=== PATIENT | female | born 1940 | race Caucasian/White ===

== ENCOUNTER 2023-07-13 13:16 | Outpatient (OUT) | payer MEDICARE, SELFPAY ==
--- NOTE | 2023-07-13 13:19 | VEIN_ITS ---
Patient: DARWIN ESPINO Exam Date: 07/13/2023 : 1940 Gender:F Ordering : DR MARQUISE FRANCISCO M.D. Admission #: [id number] Family : Order #: [id number] CLICK HERE TO VIEW EXAM RADIOLOGY REPORT PROCEDURE: VC EXT VENOUS REFLUX SLICK LMTD COMPARISON: None. INDICATIONS: I83.813 Painful varicose veins of bilat lower extremities TECHNIQUE: Duplex imaging of the lower extremity to assess the deep and superficial venous system for the presence of deep or superficial venous incompetence and to document the location and severity of disease. The study includes evaluation of the great saphenous vein (GSV), anterior accessory saphenous vein (AASV) and small saphenous vein (SSV). Patient scanned in reverse Trendelenburg and standing. FINDINGS: RIGHT LOWER EXTREMITY: Saphenofemoral Junction Reflux: Yes 7.7mm 2.2 sec GSV: Diam (mm) Reflux/ Time (sec) Proximal Thigh 3.8 Yes 2.0 Mid Thigh N/A Distal Thigh N/A Prox Calf N/A Mid Calf N/A Saphenopopliteal Junction Reflux: 3.2mm No SSV: Proximal Calf 2.0 No Mid Calf 2.4 No AASV: Proximal Thigh 4.1 Yes 1.4 Mid Thigh 3.0 Yes 1.3 Distal Thigh Thrombi: No acute or chronic thrombus visualized Compressibility: Normal Flow: Continuous flow visualized throughout veins Preforator: Dist/med calf 3.3mm with 0s reflux. Tech Note: GSV was previously ablated. Patent varicose vein dist/med calf 4.1mm with 1.0s reflux. Patent varicose vein mid/ant calf 5.1mm with 2.7s reflux. Patent varicose vein mid/lat calf 4.2mm with 1.8s reflux. Patent varicose vein mid/med thigh off of GSV extension 3.6mm with 0.7s reflux. LEFT LOWER EXTREMITY: Saphenofemoral Junction Reflux: Yes 5.6 mm 1.6 sec GSV: Diam (mm) Reflux/Time (sec) Proximal Thigh 5.6 Yes 2.7 Mid Thigh 3.6 No Distal Thigh 4.4 Yes 0.9 Prox Calf 6.8 No Mid Calf 3.9 No Saphenopopliteal Junction Relux: 2.2 mm No SSV: Proximal Calf 2.2 No Mid Calf 1.9 AASV: Proximal Thigh 2.3 No Mid Thigh 2.9 No Distal Thigh Thrombi: No acute or chronic thrombus visualized Compressibility: Normal Flow: Continuous flow visualized throughout veins Feeder Switchboard Operator: Dist/med calf 2.4mm with 0s reflux. Mid/med calf 3.1mm with 0s reflux. Patent varicose vein mid/med calf 4.3mm with 0.9s reflux. Tech Note: Incompetent GSV. Patent varicose vein dist/med calf 3.9mm with 1.0s reflux. Patent varicose vein ant knee 3.6mm with 0s reflux. CONCLUSION: 1. Mild proximal bilateral great saphenous vein venous insufficiency without significant dilatation 2. Moderate bilateral incompetent varicose veins Dictated by: Marquise Francisco MD on 07/13/2023 at 14:35 Approved by: Marquise Francisco MD on 07/13/2023 at 14:37
--- NOTE | 2023-07-13 13:19 | VEIN_ITS ---
Patient: DARWIN ESPINO Exam Date: 07/13/2023 : 1940 Gender:F Ordering : DR MARQUISE MADDEN M.D. Admission #: [id number] Family : Order #: [id number] CLICK HERE TO VIEW EXAM RADIOLOGY REPORT PROCEDURE: VC FACILITY EST COMPREHENSIVE VEIN CENTER - OFFICE VISIT INITIAL COMPARISON: None. PROGRESS NOTES: 82-year-old female who presents with a long history of lower extremity pain swelling and varicose veins. The patient complains discolored veins, leg swelling, edema and 2 separate episodes of hemorrhage from a varicose vein in the left lower leg. The patient had prior treatments with Dr. Mills and or walk having intravenous laser ablation as well as injection sclerotherapy. The patient's symptoms are significantly exacerbated by prolonged sitting and standing and 2 episodes of bleeding have changed her daily activities she no longer wants to work in the yard for fear of an additional episode of acute hemorrhage. The patient's symptoms are partially relieved by rest and leg elevation. The patient denies any signs and symptoms to suggest arterial ischemia. The patient describes a family history significant for heart disease and varicose veins in her mother. . The patient quit smoking 30 years ago. No illicit drug use. The patient does not drink alcohol. Past medical history significant for hypertension and atrial fibrillation. The patient remains on anticoagulation but is unclear whether she continues to be in atrial fibrillation or sinus rhythm. This was discussed with the patient and daughter. No history of deep venous thrombus or pulmonary embolus. See separate history and physical for medication list. The patient has worn compression stockings for approximately 5 years. Nursing notes were reviewed After history and physical exam I discussed at length the pathophysiology of venous hypertension and possible treatments, therapies and strategies available. We discussed at length the importance of elevating the lower extremities above the level of the heart, increased physical activity and compression stocking use. We discussed alternative treatments including conservative therapy with bilateral thigh-high compression stockings. Surgical interventions with ligation, stripping and phlebectomy. Discussed intravenous laser ablation, micro foam chemical ablation and injection sclerotherapy at length. Risks benefits and alternatives were discussed and patient questions were answered. Ultrasound venous reflux study performed the same day was discussed at length with the patient. The report demonstrates mild proximal bilateral great saphenous vein venous insufficiency. Mild right anterior accessory saphenous vein venous insufficiency without dilatation. Moderate bilateral incompetent varicose veins PHYSICAL EXAM: The right leg demonstrates moderate to severe diffuse varicose veins. Scattered reticular and spider veins. Moderate hemosiderin staining. Moderate subcutaneous edema of the ankle. No active ulceration. The left leg demonstrates moderate diffuse varicose veins. Scattered reticular and spider veins. Moderate hemosiderin staining. Moderate subcutaneous edema of the ankle. There is a 2 cm pre hemorrhagic vein along the anterior mid left lockwood with surrounding bruising likely related to recent hemorrhage. Both thighs, legs and feet were symmetrically warm to the touch. Good posterior tibial and dorsalis pedis pulses were present bilaterally. VEIN/VC Facility EST Comprehensive IMPRESSION: 1. Mild bilateral great and right anterior accessory saphenous vein venous insufficiency 2. Moderate to severe right and moderate left lower extremity varicose veins with left leg 2 cm hemorrhagic vein 3. Moderate bilateral ankle subcutaneous edema 4. No definite flow significant arterial disease 5. CEAP: C4a, Ep, As, Pr PLAN: 1. Micro foam chemical ablation bilateral incompetent varicose veins and left hemorrhagic veins 2. Long-term use of bilateral knee and thigh-high 20 to 30 mm compression stockings 3. Elevated legs and increased physical activity for symptomatic relief Nurse notes, history and physical were reviewed and confirmed, see attached forms. The nurse was present throughout the physical exam and consultation Dictated by: Marquise Madden MD on 07/13/2023 at 15:02 Approved by: Marquise Madden MD on 07/13/2023 at 15:09
== END 2023-07-13 13:17 | disposition home or self-care (01) ==
LOC: VC 13:17
PROVIDERS: PCP Family Medicine; Visit Provider Radiology Diagnostic Radiology
DX: I83.813 Varicose veins of bilateral lower extremities with pain (principal)
CPT/HCPCS: 93970; G0463

== ENCOUNTER 2023-09-15 07:57 | Outpatient (OUT) | payer MEDICARE, SELFPAY ==
--- NOTE | 2023-09-15 07:59 | VEIN_ITS ---
[address] [address] Patient Name: DARWIN EPSINO MRN: [id number] date: 1940 Sex: F Assigned Patient Location: Current Patient Location: Accession/Order Number: [id number] Exam Date: 09/15/2023 07:59 Report Date: 09/15/2023 09:42 At the request of: MC MADDEN Procedure: VC INJ Foam Sclerosant WUS CHASSIS WIRER PROCEDURE: VC INJ Foam Sclerosant WUS CHASSIS WIRER COMPARISON: None. HISTORY: I83.813 Painful varicose veins of bilat lower extremities Pre-operative Diagnosis: CEAP class C4a venous insufficiency with pain, tenderness, edema and incompetent left great saphenous and varicose vein(s), chronic venous insufficiency left leg secondary to venous incompetence Post-operative Diagnosis: CEAP class C4a venous insufficiency with pain, tenderness, edema and incompetent left great saphenous and varicose vein(s), chronic venous insufficiency left leg secondary to venous incompetence Procedure Performed: 1. Ultrasound-guided microfoam chemical ablation with Varithenaregistered 2. Intraoperative ultrasound guidance Anesthesia: None Indications for Procedure: 82-year-old female who presents with a long history: Extremity pain swelling with varicose veins. The patient failed conservative medical therapy including medical compression stockings, exercise and analgesics. Prior procedures include . Multiple incompetent varicosities of the left leg. Duplex scan showed reflux and enlarged diameters up to 8 mm. The patient underwent informed consent including management options where the complications of infection, bleeding, pain, and skin injury were discussed. Particular attention was spent discussing thrombus extension and deep vein thrombosis as well as the possibility of pulmonary embolus and treatment with oral or injectable blood thinners. Procedure: The patient walked to the procedure room. All applicable staff donned appropriate apparel. A procedure timeout was performed to confirm correct patient, correct extremity, correct procedure, and correct room set-up including presence of all applicable supplies, devices, and drugs. A duplex ultrasound, performed by myself confirmed the location and incompetence of branch saphenous varicosities and their course was marked on the skin together with the dilated tributaries. The extent of treatment of the vein and the associated varicosities was determined through ultrasound mapping. The skin was prepped and then punctured with a butterfly needle and advanced under ultrasound guidance. The Varithenaregistered canister was activated and the canister was primed and purged as required in the instructions for use. Varithenaregistered was drawn into a sterile syringe. The following injections were made: 7 cc injected into the distal left great saphenous vein which measures up to 8 mm along the proximal calf with reflux in the proximal and mid thigh portions. 2 cc injected into a 3 mm varicose vein anterior proximal lower leg 3 cc injected into a 4 mm varicose vein mid medial left thigh Varithenaregistered was slowly administered at 0.5-1.0 cc/second with close observation by ultrasound of its course in the vessels. Total volume utilized was: 13 cc. Following administration of Varithenaregistered the leg was elevated and the patient was asked to repeatedly dorsiflex the ankle to limit flow of Varithenaregistered into perforating veins. Once appropriate spasm had been confirmed in the treated veins, the vascular catheter was removed from the leg and light pressure was applied over the puncture site for hemostasis. The common femoral and deep superficial veins were then evaluated for flow and compressibility prior to dressing placement. The lower extremity was kept elevated at 45 degrees above the horizontal and cording material was applied over the saphenous segments and tributaries to allow for eccentric compression over the target vessels including the targeted saphenous vein(s). A multilayer dressing was applied consisting of foam pads, coban and thigh-high 20-30 mm Hg compression elastic support hose were placed on the patient. The leg was lowered only after compression had been applied and the patient was immediately ambulatory. The patient ambulated 10 minutes under supervision and was without apparent concerns at time of release. Post-care instructions include advising patient to keep post-treatment bandages in place and dry for 48 hours, avoid extended periods of inactivity, avoid heavy exercise for one week, wear compression stockings on the treated leg continuously for two weeks, to walk daily for 10 minutes over the next month. The patient was instructed to take an anti-inflammatory medicine as needed and to follow up for color duplex scan of the Saphenous veins, the treated branch saphenous varicosities, the adjacent deep veins, and additional treatment within 7 days. PERSONNEL: Ed Coto RN Electronically authenticated by: MC MADDEN Date: 09/15/2023 09:42
== END 2023-09-15 07:58 | disposition home or self-care (01) ==
LOC: VC 07:58
PROVIDERS: PCP Radiology Diagnostic Radiology; Visit Provider Radiology Diagnostic Radiology
DX: I83.813 Varicose veins of bilateral lower extremities with pain (principal)
CPT/HCPCS: 36466

== ENCOUNTER 2023-09-20 11:14 | Outpatient (OUT) | payer MEDICARE, SELFPAY ==
--- NOTE | 2023-09-20 11:17 | VEIN_ITS ---
Patient Name: DARWIN ESPINO MR#: [id number] : 1940 Exam Date: 09/20/2023 Ordering Doctor: DR MARQUISE FRANCISCO M.D. RADIOLOGY REPORT PROCEDURE: VC EXT VENOUS LT LIMITED COMPARISON: None. INDICATIONS: Phlebitis of superficial veins of lt lower extremity I80.02 TECHNIQUE: Lower extremity munroe scale and Duplex Doppler evaluation of the deep venous system from the inguinal ligament through the calf veins. FINDINGS: REGION: Left lower extremity. THROMBI: Negative for DVT. Varithena induced thrombus visualized at mid/ant calf, distal GSV, mid/med calf, and anterior knee. COMPRESSIBILITY: Non-compressible segments corresponding to thrombus FLOW: Areas of absent flow corresponding to thrombus OTHER: No patent varicose veins remain. CONCLUSION: Post ablation occlusion of treated left leg incompetent varicose veins. No residual varicose veins remain on the left side. Dictated by: Marquise Francisco MD on 09/20/2023 at 12:15 Approved by: Marquise Francisco MD on 09/20/2023 at 12:15
--- NOTE | 2023-09-20 11:18 | VEIN_ITS ---
Patient Name: DARWIN ESPINO MR#: [id number] : 1940 Exam Date: 09/20/2023 Ordering Doctor: DR MARQUISE FRANCISCO M.D. RADIOLOGY REPORT PROCEDURE: FACILITY EST LMTD VEIN CENTER - OFFICE VISIT FOLLOW UP COMPARISON: None. PROGRESS NOTES: The patient reports mild discomfort of the left leg following micro foam chemical ablation. The patient has worn her compression stocking. The patient did not require oral analgesics. The patient has exercised to the best of her ability. Physical exam demonstrates multiple thrombosed varicose veins. Some areas of bruising related to the procedure observed. No erythema or warmth to suggest cellulitis or thrombophlebitis. No active ulceration Review of the ultrasound performed the same day demonstrates occlusive thrombus extending throughout the treated left leg varicose veins. No deep vein thrombus is observed. No left leg varicose veins are observed. The patient expressed a desire to proceed with treatment of incompetent right leg varicose veins. VEIN/ Facility EST TD IMPRESSION: 1. Successful ablation of treated incompetent left leg varicose veins 2. Persistent right leg incompetent varicose veins. PLAN: Micro foam chemical ablation right leg patent incompetent varicose veins Nurse notes, history and physical were reviewed and confirmed, see attached forms. The nurse was present throughout the physical exam and consultation Dictated by: Marquise Francisco MD on 09/20/2023 at 13:24 Approved by: Marquise Francisco MD on 09/20/2023 at 13:26
== END 2023-09-20 11:15 | disposition home or self-care (01) ==
LOC: VC 11:15
PROVIDERS: PCP Radiology Diagnostic Radiology; Visit Provider Radiology Diagnostic Radiology
DX: I80.02 Phlebitis and thrombophlebitis of superficial vessels of left lower extremity (principal)
CPT/HCPCS: 93971; G0463

== ENCOUNTER 2023-09-30 12:53 | Outpatient (OUT) | payer MEDICARE, SELFPAY ==
--- NOTE | 2023-09-30 12:54 | VEIN_ITS ---
The [address] [address] Patient Name: DARWIN ESPINO MRN: [id number] date: 1940 Sex: F Assigned Patient Location: Current Patient Location: Accession/Order Number: [id number] Exam Date: 09/30/2023 12:54 Report Date: 09/30/2023 14:42 At the request of: MC MADDEN Procedure: VC INJ Foam Sclerosant WUS CORONER/MEDICAL EXAMINER PROCEDURE: VC INJ Foam Sclerosant WUS CORONER/MEDICAL EXAMINER HISTORY: Pain due to varicose veins of bilateral legs I83.813 Pre-operative Diagnosis: CEAP class 4A venous insufficiency with pain, tenderness, edema and incompetent branch saphenous vein(s), chronic venous insufficiency right leg secondary to venous incompetence Post-operative Diagnosis: CEAP class 4A venous insufficiency with pain, tenderness, edema and incompetent branch saphenous vein(s), chronic venous insufficiency right leg secondary to venous incompetence Procedure Performed: 1. Ultrasound-guided microfoam chemical ablation with Varithenaregistered 2. Intraoperative ultrasound guidance Physician: Abdi Benitez M.D. Anesthesia: None Indications for Procedure: 82 year old female. Symptoms including lower extremity pain, swelling, throbbing, dilated bulging veins for many years despite conservative medical therapy including medical compression stockings, exercise and analgesics. Prior procedures include microfoam chemical ablation and remote history of vein stripping. Multiple incompetent varicosities of the right leg. Duplex scan showed reflux and enlarged diameters up to 5 mm. The patient underwent informed consent including management options where the complications of infection, bleeding, pain, and skin injury were discussed. Particular attention was spent discussing thrombus extension and deep vein thrombosis as well as the possibility of pulmonary embolus and treatment with oral or injectable blood thinners. Procedure: The patient walked to the procedure room. All applicable staff donned appropriate apparel. A procedure timeout was performed to confirm correct patient, correct extremity, correct procedure, and correct room set-up including presence of all applicable supplies, devices, and drugs. A duplex ultrasound, performed by myself confirmed the location and incompetence of branch saphenous varicosities and their course was marked on the skin together with the dilated tributaries. The extent of treatment of the vein and the associated varicosities was determined through ultrasound mapping. The skin was prepped and then punctured with a butterfly needle and advanced under ultrasound guidance. The Varithenaregistered canister was activated and the canister was primed and purged as required in the instructions for use. Varithenaregistered was drawn into a sterile syringe. Varithenaregistered was slowly administered at 0.5-1.0 cc/second with close observation by ultrasound of its course in the vessels. Total volume utilized was: 15 mL (7 mL into a 4 mm varicosity distal anterior lower right leg; 3 mL into a 4 mm varicosity mid lateral lower leg; 5 mL into a 5 mm varicosity lateral to the knee). Following administration of Varithenaregistered the leg was elevated and the patient was asked to repeatedly dorsiflex the ankle to limit flow of Varithenaregistered into perforating veins. Once appropriate spasm had been confirmed in the treated veins, the vascular catheter was removed from the leg and light pressure was applied over the puncture site for hemostasis. The common femoral and deep superficial veins were then evaluated for flow and compressibility prior to dressing placement. The lower extremity was kept elevated at 45 degrees above the horizontal and cording material was applied over the saphenous segments and tributaries to allow for eccentric compression over the target vessels including the targeted saphenous vein(s). A multilayer dressing was applied consisting of foam pads, coban and thigh-high 20-30 mm Hg compression elastic support hose were placed on the patient. The leg was lowered only after compression had been applied and the patient was immediately ambulatory. The patient ambulated 10 minutes under supervision and was without apparent concerns at time of release. Post-care instructions include advising patient to keep post-treatment bandages in place and dry for 48 hours, avoid extended periods of inactivity, avoid heavy exercise for one week, wear compression stockings on the treated leg continuously for two weeks, to walk daily for 10 minutes over the next month. The patient was instructed to take an anti-inflammatory medicine as needed and to follow up for color duplex scan of the Saphenous veins, the treated branch saphenous varicosities, the adjacent deep veins, and additional treatment within 7 days. PERSONNEL: Ed Coto RN Electronically authenticated by: ABDI BENITEZ Date: 09/30/2023 14:42
--- OUTSIDE RECORDS SUMMARY | 2023-09-30 12:56 | XMS_ITS | CCD ---
Author Name Unknown Address [address] [place] [address] Organization [facility] Care Team Providers Care Manufacturing Technologist Name Role Phone DARVIN HUTCHINS Admitting Unavailable DARVIN HUTCHINS Attending Unavailable FABIANO BALDERAS Consulting Unavailable DARVIN HUTCHINS Consulting Unavailable DARVIN HUTCHINS Admitting Unavailable DARVIN HUTCHINS Attending Unavailable USMAN, JAVIER M Primary Care Unavailable DARVIN HUTCHINS Consulting Unavailable TRABKRISTIESSI, MOURHAF Consulting Unavailable USMAN, JAVIER M Primary Care Unavailable FABIANO BALDERAS Consulting Unavailable AYE MATA Admitting Unavailable AYE MATA Attending Unavailable AYE MATA Consulting Unavailable DARVIN HUTCHINS Consulting Unavailable SAMSA, JAYME Consulting Unavailable MCKENNA KHALIL Consulting Unavailable TCSSI, MOURHAF Consulting Unavailable Shadi Maryh M Unavailable Unavailable [id number], Basar Unavailable Un available Traboulssi, Mourhaf Unavailable Unavailable [id number], Basar Unavailable Unavailab le Javier Mary M Unavailable Unavailable Unavailable SHADI MARYH M Primary Care Physician [phone] Ivory Villanueva Unavailable Unavailable Eva Salcedo Unavailable Aaron Norwood Unavailable Usman, Javier Unavailable Javier Mary. Primary Care Unavailable Traboulssi, Mourhaf Attending Unavailable Traboulssi, Mourhaf Admitting Unavailable Unavailable Unavailable Aaron HOLLIDAY Attending Unavailable Jes Wolff Attending Unavailable Paul Gomez Attending Unavailable MouranyPaul Attending Unavailable MouranyPaul Attending Unavailable MouranyPaul Attending Unavailable MouranyPaul Admitting Unavailable WEN, Jag Jones Admitting Unavailable Pocos, Marquise Jones Consulting Unavailable ALAHMADSilvia Attending Unavailable Pocos, Marquise Jones Consulting Unavailable Pocos, Marquise Jones Consulting Unavailable Pocos, Marquise Jones Consulting Unavailable Pocos, Marquise Jones Consulting Unavailable Pocos, Marquise Jones Consulting Unavailable Pocos, Marquise Jones Consulting Unavailable Pocos, Marquise Jones Consulting Unavailable Pocos, Marquise Jones Consulting Unavailable Pocos, Marquise Jones Consulting Unavailable Pocos, Marquise Jones Consulting Unavailable Pocos, Marquise Jones Consulting Unavailable Sanjeev Johnston Attending Unavailable Delmer, Bruno Attending Unavailable Puneet, Paul Attending Unavailable MG, Aaron Admitting Unavailable MG, Aaron Attending Unavailable Mourany, Paul Walker Admitting Unavailable Mourany, Paul Walker Referring Unavailable Mourany, Paul Walker Attending Unavailable Traboulssi, Jones Referring Unavailable Traboulssi, Jones Attending Unavailable Traboulssi, Jones Admitting Unavailable Salamanca, Silva Consulting Unavailable Salamanca, Silva Consulting Unavailable Salamanca, Silva Consulting Unavailable Salamanca, Silva Consulting Unavailable Salamanca, Silva Consulting Unavailable Salamanca, Silva Consulting Unavailable Salamanca, Silva Consulting Unavailable Salamanca, Silva Consulting Unavailable Salamanca, Silva Consulting Unavailable Salamanca, Silva Consulting Unavailable USMAN, JAVIER Jang Attending Unavailable USMAN, JAVIER Jang Admitting Unavailable Traboulssi, Jnoes Attending Unavailable TraboulssiJones Admitting Unavailable Traboulssi, Jones Attending Unavailable Traboulssi, Jones Admitting Unavailable Usman, Dr. Javier Dubois Primary Care Unavaila ble Usman, Dr. Javier Dubois Primary Care Unavaila ble Traboulssi, Dr. Goldman Attending Unavaila ble Traboulssi, Dr. Goldman Referring Unavaila ble Traboulssi, Dr. Goldman Referring Unavaila ble Usman, Dr. Javier Dubois Primary Care Unavaila ble Traboulssi, Dr. Goldman Attending Unavaila ble Allergies Allergy Classification Reported Allergen(s) Allergy Type Date of Onset Reaction(s) Facility (5 sources) Ampicillin; Translations: [ampicillin] Drug Allergy anaphylaxis [facility] Repository (1 source) Ciprofloxacin Drug Allergy [facility] Repository (2 sources) Dicyclomine; Translations: [dicyclomine] Drug Allergy [facility] Rep[facility] (1 source) Iodine (And Iodine Containting Drugs) Drug allergy (disorder) [facility] Repository (2 sources) traMADol; Translations: [traMADol] Drug Allergy [facility] Repository (20 sources) Erythromycin; Translations: [erythromycin] Drug Allergy Flushing (disorder) [facility] [facility] Work Phone: (20 sources) Ampicillin; Translations: [ampicillin] Drug Allergy Blushing, function (observable entity), anaphylaxis [facility] Other (20 sources) Ciprofloxacin; Translations: [Cipro] Drug Allergy Hallucinations [facility] Other (18 sources) Acetaminophen / oxyCODONE; Translations: [acetaminophen-o xycodone] Drug Allergy paranoid and hauucinated, Hallucinations, Psychosis [facility] (20 sources) Dicyclomine; Translations: [dicyclomine] Drug Allergy Unknown (qualifier value) [facility] Other (20 sources) traMADol; Translations: [tramadol] Drug Allergy Hallucinations (finding) [facility] Other (20 sources) Azithromycin; Translations: [azithromycin] Drug Allergy vomiting [facility] Other (20 sources) CT Scan dye Propensity to adverse reactions Unknown [facility] Other (1 source) Ciprofloxacin Drug Allergy hallucinations [facility] Other (1 source) Dicyclomine Drug Allergy stomach upset [facility] Other (1 source) traMADol Drug Allergy mental changes [facility] Other (1 source) Ampicillin Drug Allergy 10-29-19 22 [facility] Repository (1 source) Ciprofloxacin Drug Allergy 10-29-19 [facility] Repository (1 source) Erythromycin Drug Allergy 10-29-19 [facility] Repository (2 sources) Contrast media Allergy to substance (finding) [facility] 600 DO Work Phone: Medications Current Medications Medication Drug Class(es) Dates Sig (Normalized) Sig (Original) acetaminophen 325 mg oral tablet (20 sources) Start: 07-07-2019 take 2 tablets by mouth every four hours as needed for pain Tylenol 325 mg Tab 650 mg = 2 tab(s), Oral, q4hr, PRN Pain/Fever, Refills(s) 0 Start Date: 07/07/19 Status: Ordered take 1 tablet by karina th every six hours as needed Tylenol 325 MG 1 Tablet Orally every 6 h rs prn Active amitriptyline hydrochloride 25 mg oral tablet (20 sources) Tricyclic Antidepressant Start: 01-04-2023 amitriptyline 25 mg Tab 12.5 mg = 0.5 tab(s), Oral, Once a day (at bedtime), Refills(s) 0 Start Date: 01/04/23 Status: Ordered Start: 06-27-2021 take 0.5 tablet by m outh once daily at bedtime as needed Amitriptyline HCl - 25 MG Oral Tablet TAKE 1/2 TABLET BY MOUTH EVERY DAY AT BEDTIME NEEDED. Quantity: 0 Refills: 0 Ordered: 27-Jun-2021 DO Start : 27-Jun-2021 Active Start: 06-27-2021 take 1 mg by mouth o nce daily at bedtime amitriptyline 25 mg Tab mg tab(s), Oral, Once a day (at bedtime), Refills(s) 0 Start Date: 01/04/23 Status: Ordered take 0.5 tablet by m outh every other day at bedtime Amitriptyline HCl 25 MG 1/2 tablet at bedtime Orally QOD for 90 days Active amLODIPine 10 mg oral tablet (20 sources) Dihydropyridine Calcium Channel Colt Start: 07-06-2019 take 1 tablet by mouth once daily amLODIPine 10 mg Tab 10 mg = 1 tab(s), Oral, Daily, # 30 tab(s), Refills(s) 0 Start Date: 07/06/19 Status: Ordered apixaban 5 mg oral tablet (20 sources) Factor Xa Inhibitor Start: 09-19-2021 take 1 tablet by mouth twice daily Eliquis 5 mg oral tablet 5 mg = 1 tab(s), Oral, BID, Refills(s) 0 Start Date: 01/04/23 Status: Ordered ascorbic acid 500 mg oral tablet (6 sources) Vitamin C take 1 tablet by mouth every twelve hours Vitamin C 500 MG 1 tablet Orally bid Active aspirin 81 mg oral tablet (20 sources) Platelet Aggregation Inhibitor, Nonsteroidal Anti-inflammatory Drug Start: 03-21-2023 aspirin 81 mg, Oral, MonThu, Refills(s) 0 Start Date: 03/21/23 Status: Ordered Start: 04-08-2022 Aspirin 81 MG Oral Tablet Delayed Release take one tablet on Wed and only Quantity: 24 Refills: 3 Ordered: 02-Jun-2023 Jones Cuba MD Start : 08-Apr-2022 Active Start: 03-03-2017 take 1 tablet by karina th once daily aspirin 81 mg oral tablet 81 mg = 1 tab(s), Oral, Daily, Refills(s) 0 Start Date: 03/03/17 Status: Ordered take 1 tablet by karina th every other day Aspirin Adult Low Dose 81 MG 1 tablet Orally QOD Active carbamide peroxide 65 mg/ml otic solution (3 sources) Start: 12-29-2021 Debrox 6.5 % 5 drops into affected ear Otic Twice a day for 4 day(s) Dec, Active Restasis (20 sources) Calcineurin Inhibitor Immunosuppressant Start: 11-17-2015 take 1 drop(s) into the eye(s) every twelve hours Restasis ophthalmic 1 drop(s), Eye-Both, q12hr, Refill(s) 0, Dry eyes Start Date: 11/17/15 Status: Ordered Restasis 0.05 % 1 into affected eye Ophthalmic Twice a day prn for 30 days Active Restasis 0.05 % Ophthalmic Emulsion USE DIRECTED. Quantity: 0 Refills: 0 Ordered: 30-Aug-2015 DO Active Restasis 0.05 % 1 into affected eye Ophthalmic Twice a day for 30 days Active Restasis 0.05 % Ophthalmic Emulsion USE DIRECTED. Refills: 0 Active docusate sodium 100 mg oral capsule (20 sources) Start: 07-07-2019 take 1 capsule by mouth twice daily Colace 100 mg Cap 100 mg = 1 cap(s), Oral, BID, Refills(s) 0 Start Date: 07/07/19 Status: Ordered donepezil hydrochloride 5 mg oral tablet (3 sources) take 1 tablet by mouth every twenty-four hours Donepezil HCl 5 MG 1 tablet at bedtime Orally Once a day 5 mg until 08/21/23 increase to 10 mg Active ferrous sulfate 325 mg oral tablet (12 sources) Start: 07-07-2019 ferrous sulfat e 325 mg Tab 325 mg = 1 tab(s), Oral, BIDWM, Refills(s) 0 Start Date: 07/07/19 Status: Ordered take 1 tablet by mouth twice gust[place] ly Ferrous Sulfate 325 (65 Fe) MG 1 tablet Orally bid Not-Taking take 1 tablet by mouth twice gustabo ly Ferrous Sulfate 325 (65 Fe) MG 1 tablet Orally bid Active fluticasone propionate 0.093 mg/actuat metered dose nasal spray (20 sources) Corticosteroid Start: 03-23-2023 fluticasone 93 mcg/inh nasal spray 2 spray(s), Nasal, Daily Allergy symptoms, Refill(s) 0 Start Date: 03/23/23 Status: Ordered Start: 03-12-2021 Fluticasone Pr opionate 50 MCG/ACT Nasal Suspension USE DIRECTED. Quantity: 0 Refills: 0 Ordered: 12-Mar-2021 DO Start : 12-Mar-2021 Active Start: 08-20-2018 fluticasone 0. 05 mg/inh Nasal [place] 2 spray(s), Nasal, Daily, Refill(s) 0 Start Date: 08/20/18 Status: Ordered Start: 02-10-2016 take 2 spray(s) nasa l route once daily as needed Fluticasone Propionate 50 MCG/ACT 2 spray in each nostril Nasally Once a day for 30 day(s) February, Not-Taking/PRN Start: 02-10-2016 take 2 spray(s) nasa l route once daily Fluticasone Propionate 50 MCG/ACT 2 spray in each nostril Nasally Once a day for 30 day(s) February, Not-Taking Start: 02-10-2016 fluticasone 0.05 mg/inh Nasal [place] (9 sources) Start: 08-20-2018 fluticasone 0. 05 mg/inh Nasal [place] 2 spray(s), Nasal, Daily, Refill(s) 0 Start Date: 08/20/18 Status: Ordered furosemide 40 mg oral tablet (20 sources) Loop Diuretic Start: 07-06-2019 take 1 tablet by mouth once daily furosemide 40 mg Tab 40 mg = 1 tab(s), Oral, Daily, # 30 tab(s), Refills(s) 0 Start Date: 07/06/19 Status: Ordered take 1 tablet by mouth once brendan y Furosemide 20 MG Oral Tablet TAKE 1 TABLET DAILY DIRECTED. Refills: 0 Active lisinopril 20 mg oral tablet (20 sources) Angiotensin Converting Enzyme Inhibitor Start: 07-06-2019 take 1 tablet by mouth once daily lisinopril 20 mg Tab 20 mg = 1 tab(s), Oral, Daily, # 30 tab(s), Refills(s) 0 Start Date: 07/06/19 Status: Ordered take 1 tablet by mouth once brendan y Lisinopril 5 MG Oral Tablet Take 1 tablet daily Refills: 0 Active metoprolol tartrate 25 mg oral tablet (20 sources) beta-Adrenergic Colt Start: 03-22-2023 take 1 tablet by mouth twice daily Metoprolol tartrate 25 mg Tab 25 mg = 1 tab(s), Oral, BID Start Date: 03/22/23 Status: Ordered Start: 07-05-2019 take 1 tablet by karina th twice daily Metoprolol tartrate 50 mg Tab 50 mg = 1 tab(s), Oral, BID, TAKE 1 TABLET BY MOUTH TWICE DAILY Start Date: 07/05/19 Status: Ordered take 0.5 tablet by m outh twice daily Metoprolol Tartrate 50 mg 1/2 tab Orally Twice a day for 90 days Active take 0.5 tablet by m outh twice daily Metoprolol Tartrate 25 MG Oral Tablet TAKE 1/2 TABLET TWICE DAILY. Refills: 0 Active pantoprazole 40 mg delayed release oral tablet (6 sources) Proton Pump Inhibitor Start: 07-07-2019 take 1 tablet by mouth once daily Pantoprazole [address] Tab 40 mg = 1 tab(s), Oral, Daily, Refills(s) 0 Start Date: 07/07/19 Status: Ordered Start: 07-07-2019 take 1 tablet by karina th once daily Pantoprazole [address] Tab 40 mg = 1 tab(s), Oral, Daily, Refills(s) 0 Start Date: 07/07/19 Status: Ordered Vitamin C 500 mg Tab (10 sources) Start: 07-07-2019 Vitamin C 500 mg Tab 500 mg = 1 tab(s), Oral, BIDWM, Refills(s) 0 Start Date: 07/07/19 Status: Ordered Vitamin D (Ergocalciferol) 18244 UNIT (11 sources) take 1 capsule by mouth every we ek Vitamin D (Ergocalciferol) 46155 UNIT 1 capsule Orally weekly for 90 days Active Vitamin D2 50,000 intl units (1.25 mg) oral capsule (14 sources) Start: 04-04-2021 take 1 capsule by mouth every week Vitamin D2 50,000 intl units (1.25 mg) oral capsule International_Unit cap(s), Oral, qWeek, Refills(s) 0 Start Date: 04/04/21 Status: Ordered Start: 04-04-2021 take 1 capsule by mo [facility] once daily Vitamin D2 50,000 intl units (1.25 mg) oral capsule International_Unit cap(s), Oral, Daily, Refills(s) 0 Start Date: 04/04/21 Status: Ordered Completed/Discontinued Medications Medication Drug Class(es) Dates Sig (Normalized) Sig (Original) amiodarone hydrochloride 200 mg oral tablet (2 sources) Antiarrhythmic take 1 tablet by mouth once daily Amiodarone HCl - 200 MG Oral Tablet Take 1 tablet daily until prescription is completed. Refills: 0 Active atorvastatin 40 mg oral tablet (20 sources) HMG-CoA Reductase Inhibitor Start: 02-12-2014 take 1 tablet by mouth once daily at bedtime Atorvastatin Calcium 40 MG Oral Tablet TAKE 1 TABLET BY MOUTH EVERY DAY AT BEDTIME Quantity: 90 Refills: 3 Ordered: 15-Sep-2022 Jones Cuba MD Start : 01-Dec-2021 Active cephalexin 500 mg oral capsule (20 sources) Cephalosporin Antibacterial Start: 11-12-2022 take 1 capsule by mouth three times daily Keflex 500 mg Cap 500 mg = 1 cap(s), Oral, TID, Take one capsule by mouth three times a day for ten days, # 30 cap(s), Refills(s) 0, Pharmacy: [address] [id number], 165, cm, 11/12/22 11:52:00 EST, Height/Length Dosing, 69, kg, 11/12/22 11:52:00 EST, Weight Dosing Start Date: 11/12/22 Status: Ordered Start: 01-31-2022 take 1 capsule by [facility] four times daily cephalexin 500 mg Cap 500 mg = 1 cap(s), Oral, QID, # 40 cap(s), Refills(s) 0, Pharmacy: [facility] #37, 160, cm, 01/31/22 20:02:00 EDT, Height/Length Dosing, 77, kg, 01/31/22 20:02:00 EDT, Weight Dosing Start Date: 01/31/22 Status: Ordered clarithromycin 500 mg oral tablet (2 sources) Macrolide Antimicrobial Start: 06-02-2023 Clarithromycin 500 MG Oral Tablet Take 30 min before procedure Quantity: 1 Refills: 0 Ordered: 02-Jun-2023 Jones Cuba MD Start : 02-Jun-2023 Active prior to dental work -azithromycin-clarithromycin 500 mg x one ergocalciferol 1.25 mg oral capsule (20 sources) Provitamin D2 Compound Start: 07-10-2021 take 1 capsule by mouth every week Vitamin D (Ergocalciferol) 1.25 MG (98103 UT) Oral Capsule Take 1 capsule by mouth once weekly Quantity: 12 Refills: 0 Ordered: 10-Jul-2021 DO Start : 10-Jul-2021 Active Start: 04-04-2021 take 1 capsule by [facility] once daily Vitamin D2 50,000 intl units (1.25 mg) oral capsule International_Unit cap(s), Oral, Daily, Refills(s) 0 Start Date: 04/04/21 Status: Ordered take 1 capsule by [facility] every week Vitamin D (Ergocalciferol) 58638 UNIT 1 capsule Orally weekly for 90 days Active ferrous fumarate 325 mg oral tablet (2 sources) Ferrous Fumarate 325 (106 Fe) MG TABS TAKE 1 TABLET DAILY DIRECTED. Refills: 0 Active microencapsulated potassium chloride 20 meq extended release oral tablet (2 sources) [facility] Klor-Con M20 20 MEQ Oral Tablet Extended Release TAKE 1 TABLET DAILY. Refills: 0 Active take 1 tablet by mouth once brendan y Klor-Con M20 20 MEQ Oral Tablet Extended Release TAKE 1 TABLET DAILY. Refills: 0 DO Active warfarin sodium 5 mg oral tablet (2 sources) Vitamin K Antagonist Warfarin So dium 5 MG Oral Tablet TAKE DIRECTED. 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 Adverse effects of medical drugs (1 source) Adverse effect of other opioids, initial encounter; Translations: [ADVERSE EFF OTH OPIOIDS INITIAL ENC] Onset: 12-30-19 Anxiety disorders (20 sources) Anxiety; Translations: [Anxiety disorder, unspecified] 03-07-2019 Chronic Aortic; peripheral; and visceral artery aneurysms (20 sources) Abdominal aortic aneurysm; Translations: [Aneurysm of thoracic aorta] 07-02-2016 Chronic Cancer of breast (4 sources) Personal history of malignant neoplasm of breast; Translations: [History of malignant neoplasm of breast] Onset: 01-05-20 Episodic Cardiac dysrhythmias (20 sources) Atrial fibrillation; Translations: [Atrial fibrillation] Onset: 04-02-2003-07-2019 Chronic Coronary atherosclerosis and other heart disease (17 sources) Atherosclerotic heart disease of [place] coronary artery without angina pectoris; Translations: [Coronary arteriosclerosis] Onset: 12-30-19 Chronic Coronary atherosclerosis and other heart disease (2 sources) History of coronary artery bypass grafting; Translations: [History of S/P CABG x 3] Episodic Deficiency and other anemia (1 source) Other iron deficiency anemias; Translations: [OTHER IRON DEFICIENCY ANEMIAS] Onset: 12-30-19 Episodic Deficiency and other anemia (20 sources) Iron deficiency anemia; Translations: [Iron deficiency anemia, unspecified] Episodic Diabetes mellitus without complication (20 sources) Impaired glucose tolerance (oral); Translations: [Impaired fasting glycemia] Onset: 12-30-19 Resolved : 03-16-20 Episodic Diseases of white blood cells (1 source) Elevated white blood cell count, unspecified; Translations: [ELEVATED WHITE BLOOD CELL COUNT UNS] Onset: 12-30-19 Chronic Disorders of lipid metabolism (20 sources) Hyperlipidemia; Translations: [Other and unspecified hyperlipidemia] 07-24-2019 Chronic Disorders of lipid metabolism (1 source) Pure hypercholesterolemia, unspecified; Translations: [PURE HYPERCHOLESTEROLEMIA UNSPEC] Onset: 12-30-19 Essential hypertension (20 sources) Essential (primary) hypertension; Translations: [Hypertensive disorder] Onset: 12-30-19 Resolved : 01-02-2007-24-2019 Chronic Fracture of lower limb (15 sources) Closed fracture of femur 07-30-2019 Episodi c Heart valve disorders (20 sources) Presence of other heart-valve replacement; Translations: [Aortic valve stenosis] Onset: 12-30-19 Chronic Nonmalignant breast conditions (12 sources) Abscess of breast; Translations: [Abscess of the breast and nipple] Onset: 12-29-19 Episodic Nutritional deficiencies (20 sources) Vitamin D deficiency; Translations: [Vitamin D deficiency, unspecified] Chronic Open wounds of extremities (3 sources) Laceration of lower leg; Translations: [Laceration without foreign body, unspecified lower leg, initial encounter] Onset: 02-01-20 Resolved : 02-06-20 Episodic Osteoarthritis (20 sources) Osteoarthritis of knee; Translations: [Osteoarthritis of knee, unspecified] Chronic Other aftercare (1 source) terminal makeup operator (current) use of anticoagulants; Translations: [SENIOR LIVING CURRNT USE ANTICOAGULANTS] Onset: 12-30-19 Episodic Other aftercare (1 source) Other long chain dyeing machine operator (current) drug therapy; Translations: [OTH GUM PULLER CURRENT DRUG THERAPY] Onset: 12-30-19 Episodic Other aftercare (1 source) senior living (current) use of aspirin; Translations: [SENIOR LIVING CURRENT USE OF ASPIRIN] Onset: 12-30-19 Episodic Other aftercare (1 source) Long-term current use of anticoagulant; Translations: [terminal makeup operator (current) use of anticoagulants] Onset: 01-12-20 Episodic Other aftercare (2 sources) Drug therapy finding; Translations: [Long-term (current) use of anticoagulants] Episodic Other and ill-defined heart disease (16 sources) Aneurysm of coronary vessels; 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 Comment on above: Right coronary arter y; Other circulatory disease (5 sources) H/O: aortic aneurysm 03-23-2023 Episodic Other connective tissue disease (5 sources) 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 Other connective tissue disease (1 source) Achilles tendinitis, left leg; Translations: [ACHILLES TENDINITIS LEFT LEG] Onset: 12-30-19 Episodic Other connective tissue disease (5 sources) Calcaneal spur, left foot; Translations: [CALCANEAL SPUR LEFT FOOT] Onset: 12-08-19 Episodic Other connective tissue disease (4 sources) Pain in left foot; Translations: [PAIN IN LEFT FOOT] Onset: 11-18-19 Episodic Other connective tissue disease (15 sources) Achilles bursitis 12-22-2013 Episodic Other connective tissue disease (1 source) Synovial cyst of knee; Translations: [Synovial cyst of popliteal space [Simms], unspecified knee] Onset: 05-11-20 Episodic Other diseases of veins and lymphatics (15 sources) Venous insufficiency of leg 03-07-2019 Episodic Other ear and sense organ disorders (20 sources) Bilateral hearing loss; Translations: [Unspecified hearing loss, bilateral] Chronic Other ear and sense organ disorders (20 sources) Bilateral tinnitus; Translations: [Tinnitus, bilateral] Episodic Other fractures (2 sources) Fracture of pubis; Translations: [Other specified fracture of left pubis, subsequent encounter for fracture with routine healing] Onset: 04-02-20 Episodic Other fractures (5 sources) Fracture of inferior pubic ramus 03-23-2023 Episodic Other fractures (5 sources) Fracture of superior pubic ramus 03-23-2023 Episodic Other fractures (1 source) Fracture of unspecified parts of lumbosacral spine and pelvis, initial encounter for closed fracture Episodic Other gastrointestinal disorders (20 sources) Constipation; Translations: [Constipation, unspecified] Episodic Other gastrointestinal disorders (2 sources) Constipation, unspecified Episod ic Other gastrointestinal disorders (1 source) Drug induced constipation; Translations: [DRUG INDUCED CONSTIPATION] Onset: 12-30-19 Other nervous system disorders (15 sources) Carpal tunnel syndrome 02-12-2014 Chronic Comment on above: RIGHT Other nervous system disorders (10 sources) Difficulty walking up stairs 07-24-2019 Chronic Other nervous system disorders (10 sources) Acute postoperative pain 07-24-2019 Episodi c Other non-traumatic joint disorders (1 source) Pain in left ankle and joints of left foot; Translations: [PAIN IN LEFT ANKLE] Onset: 11-23-19 Episodic Other non-traumatic joint disorders (1 source) Wrist joint pain; Translations: [Pain in unspecified wrist] Onset: 11-12-19 Episodic Other non-traumatic joint disorders (1 source) Pain in right knee Episodic Other nutritional; endocrine; and metabolic disorders (2 sources) Obese class I; Translations: [Body mass index (BMI) 33.0-33.9, adult] Onset: 01-05-20 Chronic Other nutritional; endocrine; and metabolic disorders (5 sources) Body mass index 30+ - obesity 01-04-2023 Chronic Other nutritional; endocrine; and metabolic disorders (11 sources) Overweight in adulthood with body mass index of 25 or more but less than 30; Translations: [Overweight] Episodic Other skin disorders (1 source) Epidermoid cyst; Translations: [Epidermal cyst] Onset: 01-12-20 Episodic Other skin disorders (2 sources) Epidermoid cyst of skin 01-11-2023 Episodic Other upper respiratory disease (2 sources) Nasal congestion Episodic Otitis media and related conditions (1 source) Other specified disorders of Eustachian tube, bilateral Episodic Pathological fracture (6 sources) H/O: fragility fracture; Translations: [Personal history of (healed) osteoporosis fracture] Onset: 04-02-20 Episodic Residual codes; unclassified (1 source) Hallucinations, unspecified; Translations: [HALLUCINATIONS UNSPECIFIED] Onset: 12-30-19 Episodic Residual codes; unclassified (20 sources) Dependent edema; Translations: [Edema, unspecified] Episodic Residual codes; unclassified (20 sources) Difficulty sleeping ; Translations: [Sleep disorder, unspecified] Episodic Residual codes; unclassified (20 sources) Memory impairment; Translations: [Other amnesia] Episodic Residual codes; unclassified (2 sources) Other amnesia Episodic Residual codes; unclassified (1 source) Sleep disorder, unspecified Episodic Residual codes; unclassified (5 sources) Delirium 03-23-2023 Episodic Residual codes; unclassified (2 sources) Body mass index 20-24 - normal; Translations: [Body Mass Index between 19-24, adult] Episodic Screening and history of mental health and substance abuse codes (13 sources) Ex-smoker; Translations: [Personal history of tobacco use] Episodic Comment on above: Quit over 20 years a go.; Skin and subcutaneous tissue infections (1 source) Cellulitis; Translations: [Cellulitis, unspecified] Onset: 11-12-19 Episodic Sprains and strains (1 source) Strain of left Achilles tendon, initial encounter; Translations: [STRAIN LEFT ACHILLES TENDON INITIAL] Onset: 12-30-19 Episodic Superficial injury; contusion (1 source) Contusion of left lower leg, initial encounter Episodic Unclassified (1 source) I48.92 - Unspecified atrial flutter; Translations: [I48.92 - Unspecified atrial flutter] Onset: 10-29-19 Unclassified (7 sources) Drug therapy finding 01-11-2023 Unclassified (5 sources) History of porcine aortic valve replacement 03-23-2023 Varicose veins of lower extremity (20 sources) Varicose veins of lower extremity; Translations: [Varicose veins of bilateral lower extremities with pain] Onset: 08-19-20 Resolved : 08-25-20 Episodic Viral infection (20 sources) Verruca plantaris; Translations: [Plantar wart] Episodic Past or Other Problems Problem Classification Problem Date Documented Da te Episodic/Chronic Other ear and sense organ disorders (1 source) Tinnitus, bilateral Onset: 03-16-2022 Resolved: 03-16-2022 Episodic Other skin disorders (1 source) Follicular cyst of the skin and subcutaneous tissue, unspecified Onset: 09-15-2021 Resolved: 09-15-2021 Episodic Results Test Name Value Interpretation Reference Range Facility A1C HEMOGLOBINon 09-20-2023 HbA1c (Bld) [Mass fraction] 5.5 % [facility] ADMETA Other HbA1c (Bld) [Mass fraction]o n 09-20-2023 A1C HEMOGLOBIN [facility] ADMETA Other Consent for Treatmenton Consent for Treatment [id number] #1.00CD:127 Normal [facility] No Panel Informationon 06-17 Normal -[facility] [address] [place] Work Phone: John 06-05-2023 ALT No additional P-5'-P [Catalytic activity/Vol] 16 Int._Unit/L Normal 6-46 [facility] Comment on above: Performed By: #### 1 [id number], 8858931, 9010715, 2105858, 3478960 #### [facility] [address] [place] [address] Ryder 06-05-2023 AST [Catalytic activity/Vol] 19 Int._Unit/L Normal 5-43 [facility] Comment on above: Performed By: #### 1 [id number], 6795283, 7291951, 1278194, 3310084 #### [facility] [address] [place] [address] BMPon 06-05-2023 Anion gap [Moles/Vol] 12 mmol/L Normal 6-16 [facility] Comment on above: Performed By: #### 1 6056025, 9709302, 9587084, 4018602, 8048508 #### [facility] [address] [place] [address] Calcium [Mass/Vol] 9.7 mg/dL Normal 8.9-11.1 [facility] Comment on above: Performed By: #### 1 7371330, 1751563, 8066887, 1411317, 4889866 #### [facility] [address] [place] [address] Chloride [Moles/Vol] 105 mmol/L Normal 101-111 [facility] Comment on above: Performed By: #### 1 4670825, 9147489, 3658701, 8922736, 7538119 #### [facility] [address] [place] [address] CO2 [Moles/Vol] 27 mmol/L Normal 21-[address] [facility] Comment on above: Performed By: #### 1 3413782, 1364598, 3792881, 1825223, 8432409 #### [facility] [address] [place] [address] Creatinine [Mass/Vol] 0.9 mg/dL Normal 0.5-1.3 [facility] Comment on above: Performed By: #### 1 9776045, 6368811, 3905768, 5298064, 3920263 #### [facility] [address] [place] [address] Glucose [Mass/Vol] 103 mg/dL Normal 55-199 [facility] Comment on above: Result Comment: If t his glucose result represents a fasting glucose, interpretation should refer to the following reference range: 55-99 mg/dL Performed By: #### 1 6108232, 0401501, 4176803, 9000812, 9283412 #### [facility] [address] [place] [address] Potassium [Moles/Vol] 3.9 mmol/L Normal 3.5-5.3 [facility] Comment on above: Performed By: #### 1 6819779, 4689575, 7982314, 2967935, 2151486 #### [facility] [address] [place] [address] Sodium [Moles/Vol] 140 mmol/L Normal 135-145 [facility] Comment on above: Performed By: #### 1 1146399, 5194893, 1522807, 5019022, 7200653 #### [facility] [address] [place] [address] Urea nitrogen [Mass/Vol] 24 mg/dL High 5-21 [facility] Comment on above: Performed By: #### 1 7085402, 4133508, 8434382, 4711253, 5209562 #### [facility] [address] [place] [address] Urea nitrogen/Creatinine [Mass ratio] 27 No Units High 10-20 [facility] Comment on above: Performed By: #### 1 2103857, 2232307, 3937988, 9064273, 7061449 #### [facility] [address] [place] [address] CHEMISTRYOrdered By: SYSTEM SYSTEM on 06-05-2023 ALT No additional P-5'-P [Catalytic activity/Vol] 16 [iU]/d Normal 6 - 46 Int._Unit/L [facility] Anion gap [Moles/Vol] 12 mmol/L Normal 6 - 16 mEq/L [facility] AST [Catalytic activity/Vol] 19 [iU]/d Normal 5 - 43 Int._Unit/L [facility] Calcium [Mass/Vol] 9.7 mg/dL Normal 8.9 - 11. 1 mg/dL [facility] Chloride [Moles/Vol] 105 mmol/L Normal 101 - 1 11 mmol/L [facility] Cholesterol [Mass/Vol] 170 mg/dL Normal 120 - 200 mg/dL [facility] Cholesterol in HDL [Mass/Vol] 72 mg/dL Invalid Interpretation Code [facility] Cholesterol in LDL [Mass/Vol] 76 mg/dL Normal <=129mg/dL [facility] Cholesterol in VLDL [Mass/Vol] 9 mg/dL Normal 7 - 40 mg/dL [facility] Creatinine [Mass/Vol] 0.9 mg/dL Normal 0.5 - 1.3 mg/dL [facility] GFR/1.73 sq M.predicted among non-blacks MDRD (S/P/Bld) [Vol rate/Area] 65 mL/min/1.73 m2 Normal >=59mL/min/1 .73 m2 [facility] [place] S Glucose [Mass/Vol] 103 mg/dL Normal 55 - 199 mg/dL [facility] Potassium [Moles/Vol] 3.9 mmol/L Normal 3.5 - 5.3 mmol/L [facility] Sodium [Moles/Vol] 140 mmol/L Normal 135 - 145 mmol/L [facility] Triglyceride [Mass/Vol] 46 mg/dL Normal <=149mg/dL [facility] Urea nitrogen [Mass/Vol] 24 mg/dL High 5 - 21 mg/dL [facility] Urea nitrogen/Creatinine [Mass ratio] 27 mg/mg High 10 - 20 [facility] Consent for Treatmenton 05-12 Consent for Treatment [id number] #1.00CD:127 Normal [facility] - Chemistry and C hemistry - challengeon 06-05-2023 Cholesterol [Mass/Vol] 76 mg/dL Normal <=129 -[facility] [address] [place] Work Phone: Cholesterol in LDL [Mass/Vol] 9 mg/dL Normal 7-40 -[facility] [address] [place] Work Phone: Laboratory - Chemistry and C hemistry - challengeOrdered By: SYSTEM SYSTEM on 06-05-2023 CO2 [Moles/Vol] 27 mmol/L Normal 21-31 [facility] [place] Marino mack Lipid Panelon 06-05-2023 Cholesterol [Mass/Vol] 170 mg/dL Normal 120-200 [facility] Comment on above: Performed By: #### 1 1107061, 2756085, 2571431, 0298650, 8378835 ####[facility] [address] [place] [address] Cholesterol in HDL [Mass/Vol] 72 mg/dL Invalid Interpretation Code [facility] Comment on above: Result Comment: HDL > or equal to 60 mg/dL: Low cardiovascular risk HDL < 40 mg/dL : High cardiovascular risk Performed By: #### 1 6355962, 3770812, 7804153, 8595650, 4432679 ####[facility] [address] [place] [address] Cholesterol in LDL [Mass/Vol] 76 mg/dL Normal <=129 [facility] Comment on above: Performed By: #### 1 1690690, 3232838, 5844062, 0981942, 5391228 ####[facility] [address] [place] [address] Cholesterol in VLDL [Mass/Vol] 9 mg/dL Normal 7-40 [facility] Comment on above: Performed By: #### 1 2548388, 7205546, 8054871, 3606947, 7386572 ####[facility] [address] [place] [address] Triglyceride [Mass/Vol] 46 mg/dL Normal <=149 [facility] Comment on above: Performed By: #### 1 1619570, 0138740, 2348096, 4747775, 1236003 ####[facility] [address] [place] [address] No Panel Informationon 08-26 -2023 46 mg/dL Normal <=149 [facility] [address] [place] Work Phone: 72 mg/dL [facility] [address] [place] Work Phone: Comment on above: HDL > or equal to 60 mg/dL: Low cardiovascular riskHDL < 40 mg/dL : High cardiovascular risk 170 mg/dL Normal 120-200 [facility] [address] [place] Work Phone: 19 {Int._Unit/L} Normal 5-43 [facility] [address] [place] Work Phone: 16 {Int._Unit/L} Normal 6-46 [facility] [address] [place] Work Phone: 65 {mL/min/1.73_m2} Normal >=59 [facility] [address] [place] Work Phone: Comment on above: Chronic kidney disea se could be indicated at eGFR's of less than 60 mL/min/1.73m2. Kidney failure is indicated at less than 15 mL/min/1.73m2. 12 {mEq/L} Normal 6-16 [facility] [address] [place] Work Phone: 105 mmol/L Normal 101-111 [facility] [address] [place] Work Phone: 3.9 mmol/L Normal 3.5-5.3 [facility] [address] [place] Work Phone: 140 mmol/L Normal 135-145 [facility] [address] [place] Work Phone: 9.7 mg/dL Normal 8.9-11.1 [facility] [address] [place] Work Phone: 27 {No_Units} above high threshold 10-20 [facility] [address] [place] Work Phone: 0.9 mg/dL Normal 0.5-1.3 [facility] [place] Work Phone: 24 mg/dL above high threshold 5-21 [facility] [place] Work Phone: 103 mg/dL Normal 55-199 [facility] [address] [place] Work Phone: Comment on above: If this glucose resu lt represents a fasting glucose, interpretation should refer to the following reference range: 55-99 mg/dL Physician Orderon 06-05-2023 Physician Order [id number] #1.00CD:127 Normal [facility] eGFRon 06-05-2023 GFR/1.73 sq M.predicted among non-blacks MDRD (S/P/Bld) [Vol rate/Area] 65 mL/min/1.73 m2 Normal >=59 [facility] Comment on above: Order Comment: Order added by Discern Expert. Result Comment: Pipeline Construction Inspector karl kidney disease could be indicated at eGFR's of less than 60 mL/min/1.73m2. Kidney failure is indicated at less than 15 mL/min/1.73m2. Performed By: #### 1 [id number], 4099670, 7167280, 0098394, 8757660 #### [facility] [address] [place] [address] Office Visit (Cardiology)on 06-02-2023 Follow-up visit Diagnoses/Problems Assessed CAD (coronary artery disease) (414.00) (I25.10) Aortic valve stenosis (424.1) (I35.0) Atrial flutter (427.32) (I48.92) Former smoker (V15.82) (Z87.891) Quit over 20 years ago. Hyperlipidemia (272.4) (E78.5) Hypertension (401.9) (I10) White coat syndrome with hypertension (401.9) (I10) Anticoagulated (V58.61) (Z79.01) Body mass index (BMI) of 24.0 to 24.9 in adult (V85.1) (Z68.24) Orders Aortic valve stenosis Start: Clarithromycin 500 MG Oral Tablet; Take 30 min before procedure Echocardiogram; Status:Hold For - Scheduling,Retrospec tive Authorization; Requested for:02Jun2023; Atrial flutter IO EKG Electrocardiogram- 12 Lead; Status:Complete; Done: 02Jun2023 Atrial flutter, CAD (coronary artery disease), Hypertension Basic Metabolic Panel; Status:Active - Retrospective Authorization; Requested for:02Jun2023; CAD (coronary artery disease) Renew: Aspirin 81 MG Oral Tablet Delayed Release; take one tablet on Wed and only CAD (coronary artery disease), Hyperlipidemia ALT - Alanine Aminotransferase, Serum; Status:Active - Retrospective Authorization; Requested for:02Jun2023; AST; Status:Active - Retrospective Authorization; Requested for:02Jun2023; Lipid Panel; Status:Active - Retrospective Authorization; Requested for:02Jun2023; SocHx: Former smoker Tobacco Use Screening; Status:Complete; Done: 02Jun2023 Patient Instructions Please bring all medicines, vitamins, and herbal supplements with you when you come to the office. Prescriptions will not be filled unless you are compliant with your follow up appointments or have a follow up appointment scheduled as per instruction of your physician. Refills should be requested at the time of your visit. Fall prevention education given Echo lab work Watchman discussed. Clarithromycin 500 mg prior to dental work Follow up in 6 months The provider reviewed the following test(s) and result(s) with the patient: ECG Chief Complaint [facility] is being seen for a 6 month follow-up of. History of Present Illness Patient is here for follow-up continue management for history of atrial flutter with recent cardioversion currently in sinus rhythm, coronary disease prior bypass surgery, aortic valve replacement, hypertension and hyperlipidemia. Since last time I saw her family report the development of mild senile dementia. They also report increase of frequency of fall and she actually back in December has fallen and broke her hip. They also describe some mucocutaneous bleeds. The patient denies lightheadedness, dizziness or syncope. The family reports she is not very active. ASSESSMENT: 1. History of atrial flutter status post cardioversion. Remains in normal sinus rhythm and on Eliquis. 2. Coronary artery disease with prior two-vessel bypass surgery with left internal mammary artery to left anterior descending artery and vein graft to the right coronary artery. Appears stable with no angina 3. Status post aortic valve replacement last echo was done back in 2020 4. 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 5.. Hypertension, appears to be controlled. She does have documented history of white coat hypertension. 6.. Hyperlipidemia, treatment and controlled 7.. Obesity recent weight loss 8. Probably early dementia 9. Easy bruisability due to aspirin and Eliquis with increased risk of fall and increased risk of bleeding. She had a recent hip fracture RECOMMENDATIONS: 1. Risk, benefit and alternative of anticoagulation/ Eliquis reviewed with patient and her son they both understood and agreed. We discussed referral for Watchman device. I believe the patient risk of bleeding is high considering her risk of fall, advanced age and recurrent mucocutaneous bleed. Family will discuss and let me know. I reviewed her bypass surgery report she did not have left atrial appendage ligation 2. I counseled her regarding losing weight, exercise, and risk factor adjustment. 3. The patient is scheduled to undergo teeth cleaning and IV educated about endocarditis prophylaxis. She reported anaphylaxis with ampicillin and nausea with Zithromax I suggested 500 mg of clarithromycin 4. Advised to repeat her echocardiogram and lab work 5. Patient was advised to restrict her salt intake. 6. Natural history of atrial flutter and the possible recurrence and need for ablation discussed with her at length 7. I reviewed her EKG with her and her son and 8. We will see her in 6 months 9. I reviewed her recent lab work with her 10. Next time we will see her we will consider repeating her echocardiogram Surgical History Problems History of Aortic Valve Replacement History of CABG x 3 History of Complete colonoscopy 09Jan2017 History of Foot surgery History of Knee replacement Left History of Varicose vein ligation History of Wrist surgery Past Med (more content not included)... Normal [employer] Physician Orderon 06-02-2023 Physician Order [id number] #1.00CD:127 Normal [facility] Tobacco Screening.on 023 Adult depression screening assessment No [facility] [employer] [address] DO Work Phone: Fall risk assessment b) One or more fall s in the last year [facility] [employer] 600 DO Work Phone: Tobacco use status [facility] b) No [facility] [address] DO Work Phone: Folateon 04-26-2023 Folate [Mass/Vol] ng/mL Normal >=6.7 [facility] Comment on above: Performed By: #### 1 [id number], 1989373, 1961953, 0707839 #### [facility] [address] [place] [address] Vit B12on 04-26-2023 Cobalamin (Vitamin B12) [Mass/Vol] 474 pg/mL Normal 50-1500 [facility] Comment on above: Performed By: #### 1 6652592, 1509595, 5136401, 7501907 #### [facility] [address] [place] [address] T3 Freeon 04-25-2023 Free T3 [Mass/Vol] 2.5 pg/mL Invalid Interpretation Code 2.0-4.4 [facility] Comment on above: Result Comment: Perf ormed at: [facility] [address] [id number] PhD Vj Kaplan Performed By: #### 1 4127522, 4715725, 7383939, 9871973 #### [facility] [address] [place] [address] CHEMISTRYOrdered By: SYSTEM SYSTEM on 04-24-2023 25-hydroxyvitamin D3 [Mass/Vol] 50.8 ng/mL Normal 30.0 - 100.0 ng/mL [facility] Free T4 [Mass/Vol] 0.71 ng/dL Normal 0.58 - 1. 64 ng/dL [facility] TSH Qn 3.36 m[IU]/L Normal 0.34 - 5.60 mcIU/mL [facility] Consent for Treatmenton 04-10 Consent for Treatment [id number] #1.00CD:127 Normal [facility] Free T4on 04-24-2023 Free T4 [Mass/Vol] 0.71 ng/dL Normal 0.58-1.64 [facility] Comment on above: Performed By: #### 1 0763700, 2998503, 6293428, 7124858 #### [facility] [address] [place] [address] Physician Orderon 04-24-2023 Physician Order [id number]#1.00CD:127 Normal [facility] TSHon 04-24-2023 TSH Qn 3.36 m[IU]/L Normal 0.34-5.60 [facility] Comment on above: Performed By: #### 1 3418498, 9275052, 9254000, 5158938 #### [facility] [address] [place] [address] Vitamin D 25 Hydroxyon 04-24 25-hydroxyvitamin D3 [Mass/Vol] 50.8 ng/mL Normal 30.0-100.0 [facility] Comment on above: Result Comment: Vit panda D deficiency has been defined as a level of serum 25-OH vitamin D less than 20 ng/mL (1,2) by the [place] of Medicine and an Endocrine Society practice guideline. The Endocrine Society further defined vitamin D insufficiency as a level between 21 and 29 ng/mL (2). 1. IOM ([place] of Medicine). 2010. Dietary reference intakes for calcium and D. [place]: The National Academies Press. 2. Patrick MF, Jennifer NC, Dustin HWANG, et al. Evaluation, treatment, and prevention of vitamin D deficiency: an Endocrine Society clinical practice guideline. JCEM. 2011 Apr; 96 (7):1911-30. Performed By: #### 1 [id number], 4535955, 9622980, 8922362, 3904170 #### [facility] [address] [place] [address] [employer] Recordson 04-07 [employer] [id number]#1.00CD:127 Normal [facility] Family Medicine Office/Clini c Noteon 04-02-2023 Family Medicine Office/Clinic Note Chief Complaint TCU Discharge History of Present Illness Patient is being seen today for a discharge visit. [place] [facility] [place] Fell while watering yard, unable to get up. Found with left inferior superior pubic rami fracture. Had confusion evening 03/21, reportedly due to morphine. Here for rehab stay. 10/01 Hb 13.1 this admission 11.8 normal indices Cr 1.0 eGFR 53, discharge 0.8 K+ 3.6 [1] Patient on exam is pleasant. She denies any pain. Says she is ready to go home. Appetite good, bowels moving appropriately. Patient will discharge home with services. Review of Systems as per HPI. all other ROS neg. Physical Exam General: Well developed, well nourished, in no acute distress Cardio: Regular rate and rhythm, no murmur Abdomen: Soft, non-distended, non-tender Musculoskeletal: No deformity noted. Normal range of motion. Joints normal. RLE: no edema_ LLE: no edema_ Neurologic: Grossly normal Skin: No rashes, ulcerations, or suspicious lesions Mental Status: Alert, clean and appropriately dressed, appropriate mood and affect. Assessment/Plan Home Health Upaq-ij-Ougl Encounter Type: Medicare Reason for Ghet-qb-Aiky (Diagnosis): DISCHARGE DIAGNOSIS Encounter Detail I certify that I conducted and documented that a zvia-bo-qqyv (F2F) encounter with the consumer occurred within the 90 days prior to the home health services start of care date, or within 30 days following the start of care date (inclusive of the start of care date), preceding the certification of medical necessity. Chcf: Yes Physical Therapy: Yes Occupational Therapy: Yes Speech Therapy: No Relief Worker: Yes Marketing Project Manager: Yes Need for Home Health Services I certify based on my findings that... a. Home health services are medically necessary for this patient, including either intermittent fci and/or therapy, AND b. The patient cannot leave his/her home due to the following reasons: Musculoskeletal - _weakness, decreased functional ADL's My clinical finding(s) support the need for these services because: _weakness, decreased functional ADL's Certificate of Medical Necessity for Home Health Medicare Requirement I certify that I am the qualifying treating provider for the above-named consumer and that the consumer needs medically necessary home health services for the treatment of consumer's illness or injury that are appropriate for the consumer's diagnosis, prognosis, functional and medical conditions. Patient requires a front wheeled walker to ambulate around the home due to a mobility limitation that requires support. 1. Fracture of inferior pubic ramus (S32.592D: Other specified fracture of left pubis, subsequent encounter for fracture with routine healing) WBAT ST rehab stay. Following with orthopedics. 2. Fracture of superior pubic ramus (S32.512D: Fracture of superior rim of left pubis, subsequent encounter for fracture with routine healing) See above #1. 3. History of healed fragility fracture (Z87.310: Personal history of (healed) osteoporosis fracture) hx of left hip fx 2019-on vit D- 50,000 units weekly. See pcp for bisphosphonate 4. HTN - Hypertension (I10: Essential (primary) hypertension) Stable. Continue on current medications. 5. Paroxysmal atrial fibrillation (I48.0: Paroxysmal atrial fibrillation) Eliquis, metoprolol. Follow-up No qualifying data available Problem List/Past Medical History Ongoing Delirium Fracture of inferior pubic ramus Fracture of superior pubic ramus H/O aortic aneurysm H/O aortic valve replacement with porcine valve History of healed fragility fracture HTN - Hypertension Hx of CABG Mixed hyperlipidemia On apixaban therapy Paroxysmal atrial fibrillation S/P total knee arthroplasty Historical AAA - Abdominal aortic aneurysm Anxiety Carpal tunnel syndrome Closed fracture of left femur Jeremias's deformity Left breast abscess Post-traumatic subdural hematoma Venous insufficiency of lower extemity Procedure/Surgical History Excision of cyst (02/17/2023), Hip arthroplasty (07/06/2019), right carpal tunnel release (02/19/2014), BONE SPURS FOOT (03/22/2004), AAA repair, achilles tendeon repair, Colonoscopy, EXCISION CYST OF LEG, History of artificial heart valve.., Knee replacement, open heart, pig valve, REMOVAL CYST ON HAND. Medications amitriptyline 25 mg Tab, 12.5 mg= 0.5 tab(s), Oral, Once a day (at bedtime) amLODIPine 10 mg Tab, 10 mg= 1 tab(s), Oral, Daily aspirin, 81 mg, Oral, MonThu atorvastatin 40 mg Tab, 40 mg= 1 tab(s), Oral, Once a day (at bedtime) Eliquis 5 mg oral tablet, 5 mg= 1 tab(s), Oral, BID fluticasone 93 mcg/inh nasal spray, 2 spray(s), Nasal, Daily, PRN furosemide 40 mg Tab, 40 mg= 1 tab(s), Oral, Daily lisinopril 20 mg Tab, 20 mg= 1 tab(s), Oral, Daily Metoprolol tartrate 25 mg Tab, 25 mg= 1 tab(s), Oral, BID Restasis ophthalmic, 1 drop(s), Eye-Both, q12hr Tyl (more content not included)... [facility] Comment on above: Result Comment: Elec tronically Signed By: New ALBERTS, Jes Jang\.br\Date and Time Signed: 04/02/23 14:12 EDT Operative Reporton Operative Report Indication for Surgery 82-year-old female with left breast epidermal cyst here for excision Preoperative Diagnosis 1 cm left breast epidermal cyst Postoperative Diagnosis As above Operation Left breast epidermal cyst excision Surgeon(s) Paul Gomez Social Science Professor None Anesthesia Quarter percent Marcaine with epinephrine Estimated Blood Loss Minimal Urine Output Void prior to OR Findings 1 cm epidermal cyst Specimen(s) 1 cm epidermal cyst Complications None Technique After obtaining informed consent the patient was taken to the operating room positioned supine on the operating room table left breast was prepped draped in sterile fashion. A timeout was performed. The epidermal inclusion cyst was identified in the medial aspect of the left breast. This was anesthetized using quarter percent Marcaine epinephrine. Elliptical incision was made around the cyst. This carried down to level the capsule which was dissected out sharply. The capsule was removed in entirety and passed off for specimen. Hemostasis was achieved. The skin was closed using a 3-0 nylon suture in a running fashion. CORRECT X2, CONTINUOUS WAS APPLIED, PATIENT ON THE PROCEDURE WITHOUT DIFFICULTY THANK YOU It should read all of our counts are correct x2, I am not sure why my addendum was put in ALL capital letters [facility] Comment on above: Result Comment: Elec tronically Signed By: Patricia GUILLEN, Paul Rausch.meme\Date and Time Signed: 03/25/23 16:42 EDT Family Medicine Office/Clini c Noteon 03-24-2023 Family Medicine Office/Clinic Note History of Present Illness [place] [facility] [place] Fell while watering yard, unable to get up. Found with left inferior superior pubic rami fracture. Had confusion evening 03/21, reportedly due to morphine. Here for ST rehab stay. 10/01 Hb 13.1 this admission 11.8 normal indices Cr 1.0 eGFR 53, discharge 0.8 K+ 3.6 PMHx - HTN, PAF, CAD, CABG 2014, porcine aortic valve replacement for 2014, AF on Eliquis, glaucoma, fall and left hip fx, SDH 2018, 2019 DEXA osteopenia, Lt TKA 2015, s/p AAA repair PCP Dr. Javier Mary Cardiology Dr. Cuba Physical Exam 155/69 - 54 - wt 152 BMI 28 Overweight WF in bed. Somewhat confused as to where she was when woke up, overall poor historian. Lungs CTA Ht RRR 3/ sys murmur Abd nondistended, nontender no distal edema Some bruising and tenderness along left lateral hip, no anterior pelvic pain on palpation. Assessment/Plan 1. Fracture of inferior pubic ramus (S32.592D: Other specified fracture of left pubis, subsequent encounter for fracture with routine healing) WBAT ST rehab stay pain controlled w APAP 2. Fracture of superior pubic ramus (S32.512D: Fracture of superior rim of left pubis, subsequent encounter for fracture with routine healing) as above 3. History of healed fragility fracture (Z87.310: Personal history of (healed) osteoporosis fracture) hx left hip fx 2018 which would qualify her to take bisphosphonate is on higher than rec'd dosing of Vit D, will hold while here 4. HTN - Hypertension (I10: Essential (primary) hypertension) elevated on amlodipine 10, lisinopril 20, furosemide 40 (for edema?) has good renal function, could inc lisinopril if cont'd elev BP was prev on metoprolol 75 bid, dec'd to 25 bid last Fall, Dr Cuba 5. Paroxysmal atrial fibrillation (I48.0: Paroxysmal atrial fibrillation) on eliquis 5 bid was prev on metoprolol 75 bid, dec'd to 25 bid last Fall, Dr Cuba 6. Delirium (R41.0: Disorientation, unspecified) Pt confused to place this morning, poor historian for meds. Reported confusion upstairs which was blamed on morphine. family attributes to her getting full tab of amitriptylline 25 mg which makes her loopy and only takes half tab at home (for what condition?) suspect delirium on dementia 7. Hx of CABG (Z95.1: Presence of aortocoronary bypass graft) asa 81, atorvastatin 40 Full Code Follow-up No qualifying data available Problem List/Past Medical History Ongoing Delirium Fracture of inferior pubic ramus Fracture of superior pubic ramus H/O aortic aneurysm H/O aortic valve replacement with porcine valve History of healed fragility fracture HTN - Hypertension Hx of CABG Mixed hyperlipidemia On apixaban therapy Paroxysmal atrial fibrillation S/P total knee arthroplasty Historical AAA - Abdominal aortic aneurysm Anxiety Carpal tunnel syndrome Closed fracture of left femur Jeremias's deformity Left breast abscess Post-traumatic subdural hematoma Venous insufficiency of lower extemity Procedure/Surgical History Excision of cyst (02/17/2023), Hip arthroplasty (07/06/2019), right carpal tunnel release (02/19/2014), BONE SPURS FOOT (03/22/2004), AAA repair, achilles tendeon repair, Colonoscopy, EXCISION CYST OF LEG, History of artificial heart valve.., Knee replacement, open heart, pig valve, REMOVAL CYST ON HAND. Medications amitriptyline 25 mg Tab, 12.5 mg= 0.5 tab(s), Oral, Once a day (at bedtime) amLODIPine 10 mg Tab, 10 mg= 1 tab(s), Oral, Daily aspirin, 81 mg, Oral, MonThu atorvastatin 40 mg Tab, 40 mg= 1 tab(s), Oral, Once a day (at bedtime) Eliquis 5 mg oral tablet, 5 mg= 1 tab(s), Oral, BID fluticasone 93 mcg/inh nasal spray, 2 spray(s), Nasal, Daily, PRN furosemide 40 mg Tab, 40 mg= 1 tab(s), Oral, Daily lisinopril 20 mg Tab, 20 mg= 1 tab(s), Oral, Daily Metoprolol tartrate 25 mg Tab, 25 mg= 1 tab(s), Oral, BID Restasis ophthalmic, 1 drop(s), Eye-Both, q12hr Tylenol 325 mg Tab, 650 mg= 2 tab(s), Oral, q4hr, PRN Vitamin D2 50,000 intl units (1.25 mg) oral capsule, Oral, qWeek, Investigating: not rec'd for snf use Allergies traMADol (Hallucinations) Percocet 5/325 (paranoid and hauucinated) Ultram (Confusion) ampicillin (Flushing) dicyclomine (Unknown) erythromycin (Flushing) Social History Alcohol - Denies Alcohol Use, 06/04/2011 Alcohol use interferes with work or home: No., 08/20/2018 Substance Abuse - Denies Substance Abuse, 06/04/2011 IV drug use: No., 08/20/2018 Tobacco - Denies Tobacco Use, 06/04/2011 Former smoker, quit more than 30 days ago Tobacco Use:., 01/04/2023 Family History Acute myocardial infarction: Mother. Alcoholism: Father. Alzheimer's disease: Father and Sister. Crohn's disease: Sister. Heart failure: Mother. Hypertension: Mother and Sister. Hypothyroidism: Sister. Primary malignant neoplasm of female genital organ: Sister. Immunizations Vaccine Date Status Comments influenza virus vacci (more content not included)... [facility] Comment on above: Result Comment: Elec tronically Signed By: MG GUILLEN, Aaron\.br\Date and Time Signed: 03/23/23 22:28 EDT Discharge Instructionson Discharge Instructions [id number] [id number]:[id number] [facility] Discharge Note-Nursingon Discharge Note-Nursing DARWIN HEART :1940 Visit Date:03/20/2023 Inpatient Discharge Instructions Your Care Team Admitting Physician - Jag CARVER DO Consulting Physician - Marquise Mesa DO Reason for Your Visit I fell while doing my yard work Your Diagnosis Fracture of inferior pubic ramus Fracture of superior pubic ramus Left hip pain Anemia H/O aortic valve replacement with porcine valve Coronary artery disease Elevated BUN Paroxysmal atrial fibrillation Hypertension Hyperlipidemia Anxiety Fall Hip pain-swelling Tests Performed ABO/Rh Alcohol Level Antibody Screen Automated Diff BMP BMP CBC w/ Auto Diff Drug Screen Urine -- Results Pending -- eGFR Hepatic Function Panel Lactic Acid Lipase Level PT & PTT Troponin CT C-Spine w/o Contrast CT Head or Brain w/o Contrast CT Pelvis w/o Contrast XR Hip 1 View Left + Pelvis Please visit your patient portal for your results or contact your primary care physician. This Is Your Medications List acetaminophen (Tylenol 325 mg Tab) amitriptyline (amitriptyline 25 mg Tab) amlodipine (amLODIPine 10 mg Tab) apixaban (Eliquis 5 mg oral tablet) aspirin atorvastatin (atorvastatin 40 mg Tab) cycloSPORINE ophthalmic (Restasis ophthalmic) ergocalciferol (Vitamin D2 50,000 intl units (1.25 mg) oral capsule) fluticasone nasal (fluticasone 0.05 mg/inh Nasal [place]) furosemide (furosemide 40 mg Tab) lisinopril (lisinopril 20 mg Tab) metoprolol (Metoprolol tartrate 25 mg Tab) [Image Removed: STOP]Stop taking these medications ascorbic acid (Vitamin C 500 mg Tab) Procedure History Excision of cyst (02/17/2023), Hip arthroplasty (07/06/2019), right carpal tunnel release (02/19/2014), BONE SPURS FOOT (03/22/2004), AAA repair, achilles tendeon repair, Colonoscopy, EXCISION CYST OF LEG, History of artificial heart valve.., Knee replacement, open heart, pig valve, REMOVAL CYST ON HAND. What to do next Instructions From Your Doctor Event Name Event Result Discharge Activity Ambulate as tolerated Discharge Restrictions No restrictions Discharge Diet(s) Regular Pending Diagnostic Test Results None Pharmacy Information [facility] New Follow Up Appointments after Discharge Follow Up with JAVIER MARY When: In 0 days Where: [address] [place] [address]- Business (1) Medications What How Much When Instructions Next Dose Changed metoprolol (Metoprolol tartrate 25 mg Tab) 1 Tablets By Mouth 2 times a day Unchanged acetaminophen (Tylenol 325 mg Tab) 2 Tablets By Mouth Every 4 hours as needed for Pain/Fever Unchanged amitriptyline (amitriptyline 25 mg Tab) By Mouth Once a day (at bedtime) Unchanged amlodipine (amLODIPine 10 mg Tab) 1 Tablets By Mouth Every day Unchanged apixaban (Eliquis 5 mg oral tablet) 1 Tablets By Mouth 2 times a day Unchanged aspirin 81 Milligram By Mouth Sathish & Unchanged atorvastatin (atorvastatin 40 mg Tab) 1 Tablets By Mouth Once a day (at bedtime) Unchanged cycloSPORINE ophthalmic (Restasis ophthalmic) 1 Drops Both eyes Every 12 hours Unchanged ergocalciferol (Vitamin D2 50,000 intl units (1.25 mg) oral capsule) By Mouth Every week Unchanged fluticasone nasal (fluticasone 0.05 mg/ inh Nasal [place]) 2 Sprays Nasal Inhalation Every day Unchanged furosemide (furosemide 40 mg Tab) 1 Tablets By Mouth Every day Unchanged lisinopril (lisinopril 20 mg Tab) 1 Tablets By Mouth Every day What How Much When Comments Stop Taking ascorbic acid (Vitamin C 500 mg Tab) 1 Tablets By Mouth Twice a day (with meals) Test Results CBC BMP WBC: 5.3 E9/L (03/21/23 06:39:00) Glucose Lvl: 112 mg/dL (03/21/23 06:39:00) RBC: 3.9 E12/L Low (03/21/23 06:39:00) BUN: 30 mg/dL High (03/21/23 06:39:00) HGB: 11.6 gm/dL Low (03/21/23 06:39:00) Creatinine: 0.8 mg/dL (03/21/23 06:39:00) Hct: 34 % (03/21/23 06:39:00) BUN/Creat Ratio: 38 High (03/21/23 06:39:00) MCV: 87.9 fL (03/21/23 06:39:00) Sodium Lvl: 142 mmol/L (03/21/23 06:39:00) MCH: 30.1 pg (03/21/23 06:39:00) Potassium Lvl: 3.6 mmol/L (03/21/23 06:39:00) MCHC: 34.2 gm/dL (03/21/23 06:39:00) Chloride: 111 mmol/L (03/21/23 06:39:00) RDW: 13.4 % (03/21/23 06:39:00) CO2: 28 mmol/L (03/21/23 06:39:00) Platelet: 171 E9/L (03/21/23 06:39:00) AGAP: 7 mEq/L (03/21/23 06:39:00) MPV: 7.8 fL (03/21/23 06:39:00) Calcium Lvl: 9.4 mg/dL (03/21/23 06:39:00) Allergies traMADol (Hallucinations) Percocet 5/325 (paranoid and hauucinated) Ultram (Confusion) ampicillin (Flushing) dicyclomine (Unknown) erythromycin (Flushing) Problems Ongoing - Any problem that you are currently receiving treatment for. Acute post-operative pain BMI 33.0-33.9,adult Carpal tunnel syndrome Closed fracture of left femur Difficulty walking up stairs Epidermal cyst HTN - Hypertension Left breast abscess Mixed hyperlipidemia (more content not included)... [facility] Inpatient Clinical Summaryon 03-22-2023 Inpatient Clinical Summary [address] [address] Clinical Summary Person Information: Name: DARWIN HEART Age: 82 Years : 1940 Sex: Female PCP: JAVIER MARY DO Marital Status: Race: White Ethnicity: Non- or Language: Montserratian Visit Id: Visit Reason: Hip pain-swelling; Fall; FRACTURE OF INFERIOR PUBIC RAMUS, HIP PAIN, FRACTURE OF SUPERIOR PUBIC RAMUS Speciality: Acuity: Enc Type: Inpatient Med Service: Medical Arrival: 03/20/2023 20:01:12 Discharge: Dispo Type: Admitted as IP to this Hosp Address: [address] [place] [address] [address] [place] [id number] Provider Notes: Diagnosis: 1:Fracture of inferior pubic ramus; 2:Fracture of superior pubic ramus; 3:Left hip pain; 4:Anemia; 5:H/O aortic valve replacement with porcine valve; 6:Coronary artery disease; 7:Elevated BUN; 8:Paroxysmal atrial fibrillation; 9:Hypertension; 10:Hyperlipidemia; 11:Anxiety Problems Active On apixaban therapy Epidermal cyst BMI 33.0-33.9,adult Left breast abscess Closed fracture of left femur Difficulty walking up stairs Post-traumatic subdural hematoma HTN - Hypertension Mixed hyperlipidemia Acute post-operative pain Carpal tunnel syndrome Smoking Status: Former Smoker Functional Status: Sensory Deficits: History of Falls: Mobility Assistance Prior to Admission: ADLs: Current Level of Assistance for Self-Care/Mobility: Cognitive Status: Oriented x 3 Allergies ampicillin (Flushing) erythromycin () Percocet 5/325 (paranoid and hauucinated) Ultram (Confusion) dicyclomine (Unknown) traMADol (Hallucinations) Measurements: Height: 157.48 cm Weight: 69.7 kg Blood Pressure: 135 mmHg / 69 mmHg BMI: 28.31 kg/m2 Procedures No Procedures Documented Immunizations No Immunizations Documented This Visit Final Med List: acetaminophen (Tylenol 325 mg Tab) 2 Tablets By Mouth every 4 hours as needed Pain/Fever. amitriptyline (amitriptyline 25 mg Tab) By Mouth once a day (at bedtime). amlodipine (amLODIPine 10 mg Tab) 1 Tablets By Mouth every day. apixaban (Eliquis 5 mg oral tablet) 1 Tablets By Mouth 2 times a day. ascorbic acid (Vitamin C 500 mg Tab) 1 Tablets By Mouth twice a day (with meals). aspirin 81 Milligram By Mouth Wednesday & . atorvastatin (atorvastatin 40 mg Tab) 1 Tablets By Mouth once a day (at bedtime). cycloSPORINE ophthalmic (Restasis ophthalmic) 1 Drops Both eyes every 12 hours. ergocalciferol (Vitamin D2 50,000 intl units (1.25 mg) oral capsule) By Mouth every week. fluticasone nasal (fluticasone 0.05 mg/inh Nasal [place]) 2 Sprays Nasal Inhalation every day. furosemide (furosemide 40 mg Tab) 1 Tablets By Mouth every day. lisinopril (lisinopril 20 mg Tab) 1 Tablets By Mouth every day. metoprolol (Metoprolol tartrate 25 mg Tab) 1 Tablets By Mouth 2 times a day. Care Team Members: Attending Physician: Jag CARVER DO Consulting Physician: Marquise Mesa DO Referring Physician: Follow up: Patient Education Information: [facility] Inpatient Patient Summaryon 03-22-2023 Inpatient Patient Summary DARWIN HEART :1940 Visit Date:03/20/2023 Inpatient Discharge Instructions Your Care Team Admitting Physician - Jag CARVER DO Consulting Physician - Marquise Mesa DO Reason for Your Visit I fell while doing my yard work Your Diagnosis Fracture of inferior pubic ramus Fracture of superior pubic ramus Left hip pain Anemia H/O aortic valve replacement with porcine valve Coronary artery disease Elevated BUN Paroxysmal atrial fibrillation Hypertension Hyperlipidemia Anxiety Fall Hip pain-swelling Tests Performed ABO/Rh Alcohol Level Antibody Screen Automated Diff BMP BMP CBC w/ Auto Diff Drug Screen Urine -- Results Pending -- eGFR Hepatic Function Panel Lactic Acid Lipase Level PT & PTT Troponin CT C-Spine w/o Contrast CT Head or Brain w/o Contrast CT Pelvis w/o Contrast XR Hip 1 View Left + Pelvis Please visit your patient portal for your results or contact your primary care physician. This Is Your Medications List acetaminophen (Tylenol 325 mg Tab) amitriptyline (amitriptyline 25 mg Tab) amlodipine (amLODIPine 10 mg Tab) apixaban (Eliquis 5 mg oral tablet) aspirin atorvastatin (atorvastatin 40 mg Tab) cycloSPORINE ophthalmic (Restasis ophthalmic) ergocalciferol (Vitamin D2 50,000 intl units (1.25 mg) oral capsule) fluticasone nasal (fluticasone 0.05 mg/inh Nasal [place]) furosemide (furosemide 40 mg Tab) lisinopril (lisinopril 20 mg Tab) metoprolol (Metoprolol tartrate 25 mg Tab) [Image Removed: STOP]Stop taking these medications ascorbic acid (Vitamin C 500 mg Tab) Procedure History Excision of cyst (02/17/2023), Hip arthroplasty (07/06/2019), right carpal tunnel release (02/19/2014), BONE SPURS FOOT (03/22/2004), AAA repair, achilles tendeon repair, Colonoscopy, EXCISION CYST OF LEG, History of artificial heart valve.., Knee replacement, open heart, pig valve, REMOVAL CYST ON HAND. What to do next Instructions From Your Doctor Event Name Event Result Discharge Activity Ambulate as tolerated Discharge Restrictions No restrictions Discharge Diet(s) Regular Pending Diagnostic Test Results None Pharmacy Information [facility] New Follow Up Appointments after Discharge Follow Up with JAVIER MARY When: In 0 days Where: [address] [place] [address]- Business (1) Medications What How Much When Instructions Next Dose Changed metoprolol (Metoprolol tartrate 25 mg Tab) 1 Tablets By Mouth 2 times a day Unchanged acetaminophen (Tylenol 325 mg Tab) 2 Tablets By Mouth Every 4 hours as needed for Pain/Fever Unchanged amitriptyline (amitriptyline 25 mg Tab) By Mouth Once a day (at bedtime) Unchanged amlodipine (amLODIPine 10 mg Tab) 1 Tablets By Mouth Every day Unchanged apixaban (Eliquis 5 mg oral tablet) 1 Tablets By Mouth 2 times a day Unchanged aspirin 81 Milligram By Mouth Wednesday & Unchanged atorvastatin (atorvastatin 40 mg Tab) 1 Tablets By Mouth Once a day (at bedtime) Unchanged cycloSPORINE ophthalmic (Restasis ophthalmic) 1 Drops Both eyes Every 12 hours Unchanged ergocalciferol (Vitamin D2 50,000 intl units (1.25 mg) oral capsule) By Mouth Every week Unchanged fluticasone nasal (fluticasone 0.05 mg/ inh Nasal [place]) 2 Sprays Nasal Inhalation Every day Unchanged furosemide (furosemide 40 mg Tab) 1 Tablets By Mouth Every day Unchanged lisinopril (lisinopril 20 mg Tab) 1 Tablets By Mouth Every day What How Much When Comments Stop Taking ascorbic acid (Vitamin C 500 mg Tab) 1 Tablets By Mouth Twice a day (with meals) Test Results CBC BMP WBC: 5.3 E9/L (03/21/23 06:39:00) Glucose Lvl: 112 mg/dL (03/21/23 06:39:00) RBC: 3.9 E12/L Low (03/21/23 06:39:00) BUN: 30 mg/dL High (03/21/23 06:39:00) HGB: 11.6 gm/dL Low (03/21/23 06:39:00) Creatinine: 0.8 mg/dL (03/21/23 06:39:00) Hct: 34 % (03/21/23 06:39:00) BUN/Creat Ratio: 38 High (03/21/23 06:39:00) MCV: 87.9 fL (03/21/23 06:39:00) Sodium Lvl: 142 mmol/L (03/21/23 06:39:00) MCH: 30.1 pg (03/21/23 06:39:00) Potassium Lvl: 3.6 mmol/L (03/21/23 06:39:00) MCHC: 34.2 gm/dL (03/21/23 06:39:00) Chloride: 111 mmol/L (03/21/23 06:39:00) RDW: 13.4 % (03/21/23 06:39:00) CO2: 28 mmol/L (03/21/23 06:39:00) Platelet: 171 E9/L (03/21/23 06:39:00) AGAP: 7 mEq/L (03/21/23 06:39:00) MPV: 7.8 fL (03/21/23 06:39:00) Calcium Lvl: 9.4 mg/dL (03/21/23 06:39:00) Allergies traMADol (Hallucinations) Percocet 5/325 (paranoid and hauucinated) Ultram (Confusion) ampicillin (Flushing) dicyclomine (Unknown) erythromycin (Flushing) Problems Ongoing - Any problem that you are currently receiving treatment for. Acute post-operative pain BMI 33.0-33.9,adult Carpal tunnel syndrome Closed fracture of left femur Difficulty walking up stairs Epidermal cyst HTN - Hypertension Left breast abscess Mixed hyperlipidemia (more content not included)... [facility] In[facility] Patient Summary [place] [address] Patient Discharge Instructions PERSON INFORMATION Name: DARWIN HEART Date of : 1940 Current Date: 03/22/2023 09:11:06 PHYSICIANS Admitting Physician: Jag CARVER DO Primary Care Physician: JAVIER MARY DO PCP Comment: Discharge Diagnosis: 1:Fracture of inferior pubic ramus; 2:Fracture of superior pubic ramus; 3:Left hip pain; 4:Anemia; 5:H/O aortic valve replacement with porcine valve; 6:Coronary artery disease; 7:Elevated BUN; 8:Paroxysmal atrial fibrillation; 9:Hypertension; 10:Hyperlipidemia; 11:Anxiety Condition at Discharge: DARWIN HEART has been given the following list of follow-up instructions, prescriptions, and patient education materials: PATIENT FOLLOW-UP INFORMATION Diet: Discharge Activity: Discharge Restrictions: Wound Care Instructions: Remove Your Dressing In Days Call Your Doctor For: IF UNABLE TO CONTACT YOUR PHYSICIAN AND YOU FEEL IT IS AN EMERGENCY, GO TO THE NEAREST EMERGENCY ROOM OR CALL 911 Home Treatment: Devices/Equipment: Cane, Walker - front wheeled Special Services: Additional Instructions: Primary Care Physician to provide the following pending test results: Follow up: In the event that this physician does not participate in your insurance network, please consult with your insurance company to find a nearby participating provider. Comment: SRINIVAS Rodarte BARBARA E, have received the attached patient education materials/instructio ns and have verbalized understanding: Patient Signature Date Clinican/Nurse Signature Date HERE ARE THE MEDICATION CHANGES THAT OCCURRED DURING YOUR HOSPITAL STAY Medications to Continue Taking That Have Changed Other Medications START: metoprolol (Metoprolol tartrate 25 mg Tab) 1 Tablets By Mouth 2 times a day. Last Dose: Next Dose: STOP: metoprolol (metoprolol 25 mg ER Tab) 1 Tablets By Mouth 2 times a day. Medications to Continue with No Changes Other Medications acetaminophen (Tylenol 325 mg Tab) 2 Tablets By Mouth every 4 hours as needed Pain/Fever. Last Dose: Next Dose: amitriptyline (amitriptyline 25 mg Tab) By Mouth once a day (at bedtime). Last Dose: Next Dose: amlodipine (amLODIPine 10 mg Tab) 1 Tablets By Mouth every day. Last Dose: Next Dose: apixaban (Eliquis 5 mg oral tablet) 1 Tablets By Mouth 2 times a day. Last Dose: Next Dose: ascorbic acid (Vitamin C 500 mg Tab) 1 Tablets By Mouth twice a day (with meals). Last Dose: Next Dose: aspirin 81 Milligram By Mouth Wednesday & . Last Dose: Next Dose: atorvastatin (atorvastatin 40 mg Tab) 1 Tablets By Mouth once a day (at bedtime). Last Dose: Next Dose: cycloSPORINE ophthalmic (Restasis ophthalmic) 1 Drops Both eyes every 12 hours. Last Dose: Next Dose: ergocalciferol (Vitamin D2 50,000 intl units (1.25 mg) oral capsule) By Mouth every week. Last Dose: Next Dose: fluticasone nasal (fluticasone 0.05 mg/inh Nasal [place]) 2 Sprays Nasal Inhalation every day. Last Dose: Next Dose: furosemide (furosemide 40 mg Tab) 1 Tablets By Mouth every day. Last Dose: Next Dose: lisinopril (lisinopril 20 mg Tab) 1 Tablets By Mouth every day. Last Dose: Next Dose: Comment: MEDICATION LIST PROVIDED FOR YOU IS A LIST OF YOUR CURRENT MEDICATIONS. PLEASE CARRY THIS WITH YOU AT ALL TIMES. acetaminophen (Tylenol 325 mg Tab) 2 Tablets By Mouth every 4 hours as needed Pain/Fever. amitriptyline (amitriptyline 25 mg Tab) By Mouth once a day (at bedtime). amlodipine (amLODIPine 10 mg Tab) 1 Tablets By Mouth every day. apixaban (Eliquis 5 mg oral tablet) 1 Tablets By Mouth 2 times a day. ascorbic acid (Vitamin C 500 mg Tab) 1 Tablets By Mouth twice a day (with meals). aspirin 81 Milligram By Mouth Wednesday & . atorvastatin (atorvastatin 40 mg Tab) 1 Tablets By Mouth once a day (at bedtime). cycloSPORINE ophthalmic (Restasis ophthalmic) 1 Drops Both eyes every 12 hours. ergocalciferol (Vitamin D2 50,000 intl units (1.25 mg) oral capsule) By Mouth every week. fluticasone nasal (fluticasone 0.05 mg/inh Nasal [place]) 2 Sprays Nasal Inhalation every day. furosemide (furosemide 40 mg Tab) 1 Tablets By Mouth every day. lisinopril (lisinopril 20 mg Tab) 1 Tablets By Mout (more content not included)... [facility] Message from Medicareon 03-11 Message from Medicare [id number] 1#1.00CD:127 [facility] Monitor Recordon 03-22-2023 Monitor Record [id number] 4#1.00CD:127 Normal [facility] Monitor Record [id number] 7#1.00CD:127 Normal [facility] Monitor Record [id number] 8#1.00CD:127 Normal [facility] Monitor Record [id number] 2#1.00CD:127 Normal [facility] Progress Note-Physicianon Progress Note-Physician Basic Information 1. Fracture of inferior pubic ramus (S32.599A: Other specified fracture of unspecified pubis, initial encounter for closed fracture) Seen and examined Clinically better No pain Had confusion last night due to Morphine DC Morphine IV Tramadol PO PT/OT Social service consult 2. Fracture of superior pubic ramus (S32.519A: Fracture of superior rim of unspecified pubis, initial encounter for closed fracture) See above 3. Left hip pain (M25.552: Pain in left hip) X-ray: No fracture PT/OT Social service consult 4. Anemia (D64.9: Anemia, unspecified) H/H are stable 5. H/O aortic valve replacement with porcine valve (Z95.3: Presence of xenogenic heart valve) Stable 6. Coronary artery disease (I25.10: Atherosclerotic heart disease of [place] coronary artery without angina pectoris) No chest pain ASA daily Lipitor daily 7. Elevated BUN (R79.9: Abnormal finding of blood chemistry, unspecified) Lasix was held BMP daily 8. Paroxysmal atrial fibrillation (I48.0: Paroxysmal atrial fibrillation) Patient was in sinus rhythm per EKG. Resume Lopressor BID Resume Eliquis 9. Hypertension (I10: Essential (primary) hypertension) Resume Norvasc and Lisinopril 10. Hyperlipidemia (E78.5: Hyperlipidemia, unspecified) Resume Lipitor daily 11. Anxiety (F41.9: Anxiety disorder, unspecified) Subjective Doing ok No pain Had confusion due to Morphine Now she awake and alert Review of Systems ;;ftros Constitutional: no fever, no chills, no sweats, no weakness Respiratory: no shortness of breath, no cough, no orthopnea, no wheezing Cardiovascular: no chest pain, no palpitations, no edema Additional ROS info: Except as noted in the above Review of Systems and in the History of Present Illness all other systems have been reviewed and are negative or noncontributory. Objective Intake & Output This visit (24 hour periods starting at 07:00 EDT) 03/22/23 * 03/21/23 03/20/23 Total Summary Intake mL -- 3.5 -- Output mL -- -- -- Fluid Balance -- 3.5 -- Intake (3) morphine mL -- 1 -- ondansetron mL -- 2 -- promethazine mL -- 0.5 -- Total -- 3.5 -- Output (0) Counts (0) * This column has not completed the indicated time period. Physical Exam General: alert, no acute distress Skin: warm, dry Head: no trauma, normocephalic Neck: Trachea midline, no adenopathy, no tenderness Eye: normal conjunctiva, sclera clear ENMT: TM's clear, oral mucosa moist, no pharyngeal erythema or exudate Cardiovascular: regular rate and rhythm, normal peripheral perfusion Respiratory: Lungs CTA, respirations non labored Chest wall: no deformity. Gastrointestinal: soft, non distended, no tenderness, no guarding. Back: No tenderness, Normal ROM, Normal alignment. Extremities: no deformity, no trauma Neurological: oriented x 4, LOC appropriate for age, CN II-XII intact, motor strength equal & normal bilaterally, sensation equal & normal bilaterally, speech normal Psychiatric: cooperative, affect appropriate for age, normal judgement, normal psychiatric thoughts. Lab Results No qualifying data available. Images (03/20/2023 22:[address] Pelvis w/o Contrast) * Final Report * Reason For Exam Other (please specify) POWERSCRIBE REPORT IMPRESSION: NONDISPLACED FRACTURES OF THE LEFT PUBIC RAMI, NOTED. EXAM: CT Pelvis w/o Contrast DATE: 03/20/2023 CLINICAL HISTORY: Pain after falling. COMPARISON: Pelvis and left hip radiographs from earlier 03/20/2023, and chest, abdomen and pelvis CTs 07/05/2019. TECHNIQUE: Spiral imaging was obtained of the pelvis without contrast. All CT scans at this facility use dose modulation, iterative reconstruction, and/or weight based dosing when appropriate to reduce radiation dose to as low as reasonably achievable. FINDINGS: The study is somewhat limited by a marking artifact from the patient's left hemihip arthroplasty. Nondisplaced fractures are present the mid left inferior pubic ramus and 12. The lateral left superior pubic ramus There is no other fracture, organized hematoma, free fluid, or other acute findings identified. Sigmoid diverticulosis, atherosclerosis, and degenerative changes of the lumbosacral junction are again noted. Ordering Provider: Rhys Chowdhury Signature Line FINAL REPORT Dictated: 03/21/2023 4:46 pm Juan Chaudhary MD Signed (Electronic Signature): 03/21/2023 4:46 pm Signed by: Juan Chaudhary MD Transcribed by: JOLEEN Technologist: NICK [1] (03/20/2023 21:54 EDT XR Hip 1 View Left + Pelvis) IMPRESSION: Left hip arthroplasty. Moderate degenerative change right hip with degenerative change lower lumbar spine. CLINICAL HISTORY: Trauma COMPARISONS: NONE AVAILABLE FINDINGS: Supine AP film of the pelvis to include both hips and lateral view of the left hip were obtained. [place] (more content not included)... Normal [facility] Comment on above: Result Comment: Elec tronically Signed By: TWIN GUILLEN, Silvia\.br\Date and Time Signed: 03/22/23 11:46 EDT Transfer Documentson 023 Transfer Documents [id number] 8#1.00CD:127 Normal [facility] ABO/Rhon 03-21-2023 ABO/Rh Positive Invalid Interpretation Code [facility] Comment on above: Performed By: #### 1 [id number], [id number], 2534288, [id number] #### [facility] [address] [place] [address] ABO/Rh History Checkon 03-21 ABO/Rh History Check Verified Hx Blood Type Normal [facility] Comment on above: Performed By: #### 1 [id number], 2494753, 6162166, 1369251 #### [facility] [address] [place] [address] 25312 ABSCon 03-21-2023 ABSC Gel Interp Negative Normal [facility] Comment on above: Performed By: #### 1 [id number], 1529625, 4403880, 1161496 #### [facility] [address] [place] [address] 60421 Auto Diffon 03-21-2023 Basophils/100 WBC (Bld) 0.8 % Normal 0.0-2.0 [facility] Comment on above: Order Comment: Order Added by Discern Expert. Performed By: #### 1 3258260, 1657138, 8832931, 7183152 #### [facility] [address] [place] [address] 34346 Basophils/Leukocytes Auto (Bld) [Pure # fraction] 0.0 E9/L Normal 0.0-0.2 [facility] Comment on above: Order Comment: Order Added by Discern Expert. Performed By: #### 1 4084385, 1747224, 1456441, 8167867 #### [facility] [address] [place] [address] 16428 Eosinophils/100 WBC (Bld) 1.6 % Normal 0.0-8.0 [facility] Comment on above: Order Comment: Order Added by Discern Expert. Performed By: #### 1 1800240, 8807168, 0371214, 6189607 #### [facility] [address] [place] [address] 97344 Eosinophils/Leukocyte s Auto (Bld) [Pure # fraction] 0.1 E9/L Normal 0.0-0.5 [facility] Comment on above: Order Comment: Order Added by Discern Expert. Performed By: #### 1 1897030, 0716870, 6105651, 0646490 #### [facility] [address] [place] [address] 72857 Lymphocytes/100 WBC (Bld) 22.4 % Normal 14.0-50.0 [facility] Comment on above: Order Comment: Order Added by Discern Expert. Performed By: #### 1 [id number], 0548450, 2976116, 0512730 #### [facility] [address] [place] [address] 08962 Lymphocytes/Leukocyte s Auto (Bld) [Pure # fraction] 1.2 E9/L Normal 1.0-4.0 [facility] Comment on above: Order Comment: Order Added by Discern Expert. Performed By: #### 1 7794614, 6142683, 3660025, 8427282 #### [facility] [address] [place] [address] 79970 Monocytes/100 WBC (Bld) 9.3 % Normal 4.0-14.0 [facility] Comment on above: Order Comment: Order Added by Discern Expert. Performed By: #### 1 0064483, 5157030, 9219667, 7722386 #### [facility] [address] [place] [address] 99375 Monocytes/Leukocytes Auto (Bld) [Pure # fraction] 0.5 E9/L Normal 0.2-1.0 [facility] Comment on above: Order Comment: Order Added by Discern Expert. Performed By: #### 1 7236712, 6921125, 2777562, 9552915 #### [facility] [address] [place] [address] 45287 Neutrophils/100 WBC (Bld) 65.9 % Normal 36.0-75.0 [facility] Comment on above: Order Comment: Order Added by Discern Expert. Performed By: #### 1 3410928, 9412563, 1659179, 8341626 #### [facility] [address] [place] [address] 57559 Neutrophils/Leukocyte s Auto (Bld) [Pure # fraction] 3.5 E9/L Normal 2.0-7.5 [facility] Comment on above: Order Comment: Order Added by Discern Expert. Performed By: #### 1 5744511, 4673868, 1739443, 4569726 #### [facility] [address] [place] [address] 59494 BMPon 03-21-2023 Anion gap [Moles/Vol] 7 mmol/L Normal 6-16 [facility] Comment on above: Performed By: #### 1 4294472, 4680369, 8658095, 5265884 #### [facility] [address] [place] [address] Calcium [Mass/Vol] 9.4 mg/dL Normal 8.9-11.1 [facility] Comment on above: Performed By: #### 1 4911176, 7535829, 6995522, 6396405 #### [facility] [address] [place] [address] Chloride [Moles/Vol] 111 mmol/L Normal 101-111 [facility] Comment on above: Performed By: #### 1 6953230, 8079044, 4623242, 9363154 #### [facility] [address] [place] [address] CO2 [Moles/Vol] 28 mmol/L Normal 21-[address] [facility] Comment on above: Performed By: #### 1 7012193, 1259531, 8571095, 5389213 #### [facility] [address] [facility] [place] [address] Creatinine [Mass/Vol] 0.8 mg/dL Normal 0.5-1.3 [facility] Comment on above: Performed By: #### 1 3904141, 8228032, 4167447, 8353864 #### [facility] [address] [place] [address] Glucose [Mass/Vol] 112 mg/dL Normal 55-199 [facility] Comment on above: Result Comment: If t his glucose result represents a fasting glucose, interpretation should refer to the following reference range: 55-99 mg/dL Performed By: #### 1 5761222, 3221310, 6097082, 1372996 #### [facility] [address] [place] [address] Potassium [Moles/Vol] 3.6 mmol/L Normal 3.5-5.3 [facility] Comment on above: Performed By: #### 1 0930584, 6635578, 7663375, 2514199 #### [facility] [address] [place] [address] Sodium [Moles/Vol] 142 mmol/L Normal 135-145 [facility] Comment on above: Performed By: #### 1 0999149, 9886804, 8252647, 4989373 #### [facility] [address] [place] [address] Urea nitrogen [Mass/Vol] 30 mg/dL High 5-21 [facility] Comment on above: Performed By: #### 1 3241156, 8613662, 6224940, 7834705 #### [facility] [address] [place] [address] Urea nitrogen/Creatinine [Mass ratio] 38 No Units High 10-20 [facility] Comment on above: Performed By: #### 1 8105719, 4084719, 9373749, 2345202 #### [facility] [address] [place], [place] [address] Blood Bank ID#on 03-21-2023 BBID# [id number] Invalid Interpretation Code [facility] Comment on above: Performed By: #### 1 0819644, 4663831, 0269684, 6248259 #### [facility] [address] [place] [address] 56398 CBC w/ Auto Diffon 3 Erythrocyte distribution width (RBC) [Ratio] 13.4 % Normal 10.9-14.2 [facility] Comment on above: Performed By: #### 1 8470221, 8630311, 7762900, 6332004 #### [facility] [address] [place] [address] Hematocrit (Bld) [Volume fraction] 34.0 % Normal 34.0-46.0 [facility] Comment on above: Performed By: #### 1 3455833, 6427777, 8380482, 2270511 #### [facility] [address] [place] [address] Hemoglobin (Bld) [Mass/Vol] 11.6 g/dL Low 12.0-16.0 [facility] Comment on above: Performed By: #### 1 2765021, 5705494, 3169487, 1470937 #### [facility] [address] [place] [address] MCH (RBC) [Entitic mass] 30.1 pg Normal 27.0-34.0 [facility] Comment on above: Performed By: #### 1 8175548, 6652022, 3970400, 1763089 #### [facility] [address] [place] [address] 13138 MCHC (RBC) [Mass/Vol] 34.2 g/dL Normal 31.4-36.0 [facility] Comment on above: Performed By: #### 1 4024968, 4599622, 9040270, 2840780 #### [facility] [address] [place] [address] 12959 MCV (RBC) [Entitic vol] 87.9 fL Normal 80.0-100.0 [facility] Comment on above: Performed By: #### 1 3974694, 2781252, 7127293, 3071349 #### [facility] [address] [place] [address] Platelet mean volume (Bld) [Entitic vol] 7.8 fL Normal 6.4-10.8 [facility] Comment on above: Performed By: #### 1 0075622, 6066129, 3229208, 3650898 #### [facility] [address] [place] [address]1018 Platelets (Bld) [#/Vol] 171.0 E9/L Normal 150.0-500.0 [facility] Comment on above: Performed By: #### 1 2329922, 5888721, 6520641, 2113047 #### [facility] [address] [place] [address] 52622 RBC (Bld) [#/Vol] 3.9 E12/L Low 4.3-5.9 [facility] Comment on above: Performed By: #### 1 0787520, 9175455, 0926422, 5271622 #### [facility] [address] [place] [address] WBC corrected for nucl RBC Auto (Bld) [#/Vol] 5.3 E9/L Normal 4.0-11.0 [facility] Comment on above: Performed By: #### 1 0668644, 1660577, 6609498, 2721460 #### [facility] [address] [place] [address] CT Head or Brain w/o Contras ton 03-21-2023 CT Head or Brain w/o Contrast Exam Date/Time: 03/20/2023 21:53 EDT Reason for Exam: Head trauma, moderate-severe;Othe r (please specify) Report IMPRESSION: NO ACUTE FINDINGS. CT BRAIN WITHOUT ATROPHY ISCHEMIA. History: Fall. Hit head. Receiving anticoagulation.. Technical factors: CT imaging of the brain was obtained and formatted as 5 mm contiguous axial images. 2.5 mm contiguous axial images were obtained through the osseous structures. Sagittal and coronal reconstruction obtained during postprocessing. Comparison: December 26, 2021.. Findings: Extra-axial spaces: Normal. Intracranial hemorrhage: None. Ventricular system: Ventricles mildly enlarged. Sulci mildly prominent. Basal Cisterns: Normal. Cerebral Parenchyma: Bilateral symmetric periventricular areas decreased attenuation. Midline Shift: None. Cerebellum: Normal. Paranasal sinuses and mastoid air cells: Normal. Visualized Orbits: Normal. . All CT scans at this facility use dose modulation, iterative reconstruction, and/or weight based dosing when appropriate to reduce radiation dose to as low as reasonably achievable. Report Ordering Provider: Rhys Chowdhury FINAL REPORT Dictated: 03/21/2023 2:17 pm Zackary Powers MD Signed (Electronic Signature): 03/21/2023 2:17 pm Signed by: Zackary Powers MD Transcribed by: JOLEEN Technologist: NICK Simmons [facility] CT Pelvis w/o Contraston CT Pelvis w/o Contrast Exam Date/Time: 03/20/2023 22:55 EDT Reason for Exam: Other (please specify) Report IMPRESSION: NONDISPLACED FRACTURES OF THE LEFT PUBIC RAMI, NOTED. EXAM: CT Pelvis w/o Contrast DATE: 03/20/2023 CLINICAL HISTORY: Pain after falling. COMPARISON: Pelvis and left hip radiographs from earlier 03/20/2023, and chest, abdomen and pelvis CTs 07/05/2019. TECHNIQUE: Spiral imaging was obtained of the pelvis without contrast. All CT scans at this facility use dose modulation, iterative reconstruction, and/or weight based dosing when appropriate to reduce radiation dose to as low as reasonably achievable. FINDINGS: The study is somewhat limited by a marking artifact from the patient's left hemihip arthroplasty. Nondisplaced fractures are present the mid left inferior pubic ramus and 12. The lateral left superior pubic ramus There is no other fracture, organized hematoma, free fluid, or other acute findings identified. Sigmoid diverticulosis, atherosclerosis, and degenerative changes of the lumbosacral junction are again noted. Ordering Provider: Rhys Chowdhury FINAL REPORT Dictated: 03/21/2023 4:46 pm Juan Chaudhary MD Signed (Electronic Signature): 03/21/2023 4:46 pm Signed by: Juan Chaudhary MD Transcribed by: DP Technologist: DPR Technical Comments Rectal Contrast Given? No Oral contrast amount in ml's: [address] [facility] [address] Spine Cervical w/o Contra ston 03-21-2023 CT Spine Cervical w/o Contrast Exam Date/Time: 03/20/2023 21:53 EDT Reason for Exam: Neck trauma;Other (please specify) Report IMPRESSION: NO FRACTURE. MODERATE TO MARKED MULTILEVEL DEGENERATIVE CHANGE SPINE. CT CERVICAL SPINE WITHOUT INTRAVENOUS CONTRAST MEDIUM. HISTORY: Fell on long. Hit head. Receiving anticoagulation Neck trauma TECHNICAL FACTORS: CT cervical spine obtained and formatted as 2.5 mm contiguous axial images from skull base to the level of. Sagittal and coronal reconstructions were obtained during postprocessing. No contrast medium was utilized. COMPARISON: CT cervical spine, July 05, 2019 FINDINGS: Cervical vertebral bodies are normal in height and alignment. Atlantooccipital articulation maintained. Atlantoaxial interval preserved. Neural foramina narrowing, right C4-C5. Disc spaces preserved. Posterior disc space narrowing C3-C4 and C4-C5 views disc space narrowing C5-C6 and C6-C7. No fractures, dislocations, bone lesions. Limited imaging lung apices without anomaly. Carotid arteries and soft tissues are without anomaly. All CT scans at this facility use dose modulation, iterative reconstruction, and/or weight based dosing when appropriate to reduce radiation dose to as low as reasonably achievable. Report Ordering Provider: Rhys Chowdhury FINAL REPORT Dictated: 03/21/2023 2:15 pm SignZackary moss MD Signed (Electronic Signature): 03/21/2023 2:15 pm Signed by: Zackary Powers MD Transcribed by: JOLEEN Technologist: NICK Simmons [facility] ED Clinical Summaryon 2022 ED Clinical Summary [address] [address] ED Clinical Summary Person Information Name: [facility] Age: 82 Years : 1940 Sex: Female Language: Montserratian PCP: JAVIER MARY DO Marital Status: Visit Id: Visit Reason: Hip pain-swelling; Fall; FRACTURE OF INFERIOR PUBIC RAMUS, HIP PAIN, FRACTURE OF SUPERIOR PUBIC RAMUS Speciality: Acuity: 3 Enc Type: Inpatient Med Service: Medical Arrival: 03/20/2023 20:01:12 Discharge: LOS: 000 08:16 Checkin: 03/20/2023 20:01:12 Checkout: 03/21/2023 04:17:19 Dispo Type: Admitted as IP to this [facility] EVENTS: Event Name Event Status Request Date/Time Start Date/Time Complete Date/Time Arrive Complete 03/20/2023 20:01:12 03/20/2023 20:01:12 03/20/2023 20:01:12 Document Home Meds Request 03/20/2023 20:01:12 Triage Complete 03/20/2023 20:01:12 03/20/2023 20:10:22 03/20/2023 20:10:22 Bed Assign Complete 03/20/2023 20:01:12 03/20/2023 20:01:12 03/20/2023 20:01:12 Dr Exam Complete 03/20/2023 20:01:12 03/20/2023 20:02:44 03/20/2023 20:02:44 RN Exam Complete 03/20/2023 20:01:12 03/20/2023 20:12:37 03/20/2023 20:12:37 Registration Complete 03/20/2023 20:02:44 03/20/2023 20:07:32 03/20/2023 20:07:32 Dr Exam Complete 03/20/2023 20:02:52 03/20/2023 20:02:52 03/20/2023 20:02:52 Reg Complete Request 03/20/2023 20:07:32 Reg Bed Request Complete 03/20/2023 20:07:32 03/20/2023 20:07:32 03/20/2023 20:07:32 Fall Risk Request 03/20/2023 20:12:37 Trauma II Request 03/20/2023 20:23:30 EKG Complete 03/20/2023 20:32:35 03/20/2023 20:35:53 NPO Request 03/20/2023 21:16:46 Pending Labs Request 03/20/2023 21:16:46 Lab Request 03/20/2023 21:16:46 Urine Collect Request 03/20/2023 21:16:46 RT Request 03/20/2023 21:16:46 Patient Care Request 03/20/2023 21:16:46 X-Ray Complete 03/20/2023 21:16:46 03/20/2023 21:52:45 03/20/2023 21:54:00 Blood Collect Request 03/20/2023 21:16:46 CT Complete 03/20/2023 21:16:46 03/20/2023 21:52:49 03/20/2023 21:53:45 Pending Labs Complete 03/20/2023 21:39:19 03/20/2023 21:39:19 03/20/2023 21:59:49 Lab Complete 03/20/2023 21:39:19 03/20/2023 21:39:19 03/20/2023 21:59:50 Pending Labs Complete 03/20/2023 21:41:54 03/20/2023 21:41:54 03/20/2023 21:42:03 Lab Complete 03/20/2023 21:41:54 03/20/2023 21:41:54 03/20/2023 21:42:03 Wet Read Request 03/20/2023 21:54:00 CT Cancel 03/20/2023 22:35:54 03/20/2023 22:48:14 CT Complete 03/20/2023 22:48:12 03/20/2023 22:48:41 03/20/2023 22:55:58 Consult Request 03/21/2023 00:12:21 Hospitalist Consult Request 03/21/2023 00:12:21 Consult Request 03/21/2023 00:34:02 Patient Care Request 03/21/2023 03:43:23 Pending Labs Request 03/21/2023 03:43:23 Lab Request 03/21/2023 03:43:23 Meds Admin Request 03/21/2023 03:43:23 Bed Request Request 03/21/2023 03:43:23 Reg Bed Request Complete 03/21/2023 03:43:23 03/21/2023 03:51:05 03/21/2023 03:51:05 Admit Request 03/21/2023 03:43:23 Patient Care Request 03/21/2023 03:51:05 Patient Care Request 03/21/2023 03:51:05 Patient Care Request 03/21/2023 03:51:06 Patient Care Request 03/21/2023 03:51:06 Patient Care Request 03/21/2023 03:58:43 ADDRESS: [place] [id number] [facility] DOC NOTES: MEDICAL INFORMATION: Prescriptions Given: Medications to Continue with No Changes Other Medications acetaminophen (Tylenol 325 mg Tab) 2 Tablets By Mouth every 4 hours as needed Pain/Fever. amitriptyline (amitriptyline 25 mg Tab) By Mouth once a day (at bedtime). amlodipine (amLODIPine 10 mg Tab) 1 Tablets By Mouth every day. apixaban (Eliquis 5 mg oral tablet) ascorbic acid (Vitamin C 500 mg Tab) 1 Tablets By Mouth twice a day (with meals). aspirin (aspirin 81 mg oral tablet) 1 Tablets By Mouth every day. atorvastatin (atorvastatin 40 mg Tab) 1 Tablets By Mouth once a day (at bedtime). cycloSPORINE ophthalmic (Restasis ophthalmic) 1 Drops Both eyes every 12 hours. ergocalciferol (Vitamin D2 50,000 intl units (1.25 mg) oral capsule) By Mouth every day. fluticasone nasal (fluticasone 0.05 mg/inh Nasal [place]) 2 Sprays Nasal Inhalation every day. furosemide (furosemide 40 mg Tab) 1 Tablets By Mouth every day. lisinopril (lisinopril 20 mg Tab) 1 Tablets By Mouth every day. metoprolol (Metoprolol tartrate 50 mg Tab) 1 Tablets By Mouth 2 times a day. TAKE 1 TABLET BY MOUTH TWICE DAILY. PATIENT EDUCATION INFORMATION: Instructions: Follow up: DIAGNOSIS: 1:Fracture of inferior pubic ramus; 2:Fracture of superior pubic ramus; 3:Left hip pain; 4:Anemia; 5:H/O aortic valve replacement with porcine valve; 6:Coronary artery disease; 7:Elevated BUN; 8:Paroxysmal atrial fibrillation; 9:Hypertension; 10:Hyperlipidemia; 11:Anxiety Normal [facility] ED Note-Physicianon 03-21-20 ED Note-Physician Basic Information Time Seen: Luciana PERSAUD, Rhys Vital 03/20/2023 20:02 Chief Complaint Watering lawn and slipped on wet grass and fell. Denies feeling illl prior. (L) hip pain. Hit back on head on ground, no LOC. On Eliquis. Able to bear weight, but painful. History of Present Illness 82-year-old female presents the ED with complaint of left hip pain after a fall. Patient reports that she slipped on grass and fell onto her left hip. Patient also reports that she struck her head, denies any loss of consciousness, denies any headache, denies any nausea vomiting, denies any neck pain. Patient is on Eliquis due to history of A-fib. Patient was able to get up with assistance after a fall as well as walk a few steps, though she does complain of left hip pain when doing so. On presentation the ED, patient is denying any complaints whatsoever at rest, does have reproducible pain in her left hip with ambulation. Patient is endorsing a purely mechanical fall, denies any headache, denies any focal neurologic deficits, denies any chest pain or shortness of breath. Review of Systems Full 10 system ROS performed. Pt denies symptoms except as noted above in the HPI. Physical Exam Vitals & Measurements T: 36.7 ?C(Oral) HR: 76(Monitored) RR: 16 BP: 120/82 SpO2: 94% HT: 165 cm WT: 71.8 kg BMI: 26.37 Trauma exam Vital signs reviewed Primary survey Airway intact Lung sounds clear and equal bilaterally Pulses full and equal to carotid, femoral, radial, dorsalis pedis bilaterally Heart regular rate and rhythm Skin warm, dry, pink GCS 15 Secondary survey General: GCS 15, alert HEENT: Head atraumatic, facial bones stable; Eyes normal inspection; PERRLA. No evidence of oropharyngeal trauma; no blood in the nares; tympanic membranes intact, no hemotympanum or drainage. NECK: Normal inspection; no tracheal deviation; no JVD RESP: Normal breath sounds, no wheezes or crackles; no chest wall tenderness, crepitus, or subcutaneous emphysema: no visible evidence of chest wall trauma; chest rise symmetric; no respiratory distress HEART: Heart rate and rhythm regular; carotid, radial, femoral, dorsalis pedis pulses +2 and equal bilaterally; no murmurs. ABDOMEN: Soft, nontender. No ecchymosis or visible wounds to abdominal wall; no distention, guarding, rigidity, or rebound; pelvis stable, no pain on compression; MSK: Patient with tenderness on palpation and ranging of her left hip joint; normal appearance; no tenderness or step-offs to palpation of thoracic or lumbar spine; No ecchymosis or wounds to upper or lower back NEURO: Alert and oriented; sensation intact and symmetric bilaterally; muscle strength symmetric bilaterally SKIN: Color normal; no rash; warm; dry Medical Decision Making MEDICAL DECISION MAKING Number and Complexity of Problems Differential Diagnosis: [] [facility] Data External documents reviewed: [] My EKG interpretation: [] My CT interpretation: No acute findings on CT of head or neck, patient does have evidence of subtle fracture involving the left inferior and superior pubic rami on CT of her pelvis. My X-ray interpretation: [] My Ultrasound interpretation: [] Decision rules/scores evaluated: [] Discussed with: [] Treatment and Disposition ED Course: Patient presents ED with complaint of left hip pain after a fall. Did perform CTs of patient head and neck due to the fact the patient struck head, patient age, fact the patient is on blood thinners for A-fib. Also performed full set of trauma labs. Work-up in ED reviewed and noted. CTs of head and neck without abnormalities. Patient without any major lab normalities. X-ray of patient left hip and pelvis difficult to read due to extensive arthritic changes, concern for possible fracture of pubic ramus on the left. Performed a CT of the pelvis after patient was unable to ambulate due to pain in the ED. CT of pelvis showed subtle fracture involving the left inferior and superior pubic rami. Due to patient ambulate, I did discuss patient with hospitalist who agreed to admit patient to medicine until arrangements can be made to safely arrange for patient home-going. Though pubic rami fracture most likely nonoperative management, I did discuss patient with my attending who agreed to discuss patient with the orthopedic surgeon on-call to consult on this patient if necessary while inpatient. Patient admitted to medicine. Shared decision making: [] Code status: [] Assessment/Plan Closed head injury without loss of consciousness (S09.90XA: Unspecified injury of head, initial encounter) Fracture of inferior pubic ramus (S32.599A: Other specified fracture of unspecified pubis, initial encounter for closed fracture) Fracture of superior pubic ramus (S32.519A: Fracture of superior rim of unspecified pubis, initial encounter for closed fracture) Hip pain (M25.559: Pain in unspecified hip) Orders: ABO/Rh ABO/Rh History Check Antibody Screen Automated (more content not included)... [facility] Comment on above: Result Comment: Elec tronically Signed By: Rhys Chowdhury PA-C\.br\Date and Time Signed: 03/21/23 00:16 EDT\.br\Electronically Co-Signed By: Gerardo Hernandez DO\.br\Date and Time Co-Signed: 03/21/23 07:25 EDT ED Patient Education Noteon 03-21-2023 ED Patient Education Note Normal [facility] ED Patient Summaryon 023 ED Patient Summary [place] [address] Patient Discharge Instructions Person Information Name: DARWIN HEART Age: 82 Years Arrival Date: 03/20/2023 20:01:12 Discharge Diagnosis: 1:Fracture of inferior pubic ramus; 2:Fracture of superior pubic ramus; 3:Left hip pain; 4:Anemia; 5:H/O aortic valve replacement with porcine valve; 6:Coronary artery disease; 7:Elevated BUN; 8:Paroxysmal atrial fibrillation; 9:Hypertension; 10:Hyperlipidemia; 11:Anxiety Primary Care Physician: JAVIER MARY DO Provider Information Primary Provider: Gerardo Hernandez DO Advanced Experience Design Director:Rhys Chowdhury PA-C The exam and treatment you received in the Emergency Department were for an urgent problem and are not intended as complete care. It is important that you follow up with a doctor, nurse practitioner, or physician?s critical care physician assistant for ongoing care. If your symptoms become worse or you do not improve as expected and you are unable to reach your usual health care provider, you should return to the Emergency Department. We are available 24 hours a day. DARWIN HEART has been given the following list of patient education materials, prescriptions and follow-up instructions: Follow-up Instructions: In the event that this physician does not participate in your insurance network, please consult with your insurance company to find a nearby participating provider. Patient Education Materials: A MESSAGE TO ALL PATIENTS REGARDING OPIOIDS PRESCRIPTION OPIOIDS: WHAT YOU NEED TO KNOW Prescription opioids can be used to help relieve kyfdsoel-hn-igmevq pain and are often prescribed following a surgery or injury, or for certain health conditions. These medications can be an important part of the treatment but also come with serious risks. It is important to work with your healthcare provider to make sure you are getting the safest, most effective care. WHAT ARE THE RISKS AND SIDE EFFECTS OF OPIOID USE? Prescription opioids carry serious risks of addiction and overdose, especially with prolonged use. An opioid overdose, often marked by slowed breathing, can cause sudden . The use of prescription opioids can have a number of side effects as well, even when taken as directed: ? Tolerance?meaning you might need to take more of the medication for the same pain relief ? Physical dependence?meaning you have symptoms of withdrawal when a medication is stopped ? Increased sensitivity to pain ? Constipation ? Nausea, vomiting, and dry mouth ? Sleepiness and dizziness ? Confusion ? Depression ? Low levels of testosterone that can result in lower sex drive, energy, and strength ? Itching and sweating RISKS ARE GREATER WITH: ? History of drug misuse, substance use disorder, or overdose ? Mental health conditions (such as depression or anxiety) ? Sleep apnea ? Older age (65 years and older) ? Avoid alcohol while taking prescription opioids. Also, unless specifically advised by your health care provider, medications to avoid include: ? Benzodiazepines (such as Xanax or Valium) ? Muscle relaxants (such as Soma or Flexeril) ? Hypnotics (such as Ambien or Lunesta) ? Other prescription opioids KNOW YOUR OPTIONS Talk to your health care provider about ways to manage your pain that don?t involve prescription opioids. Some of these options may actually work better and have fewer risks and side effects. Options may include: ? Pain relievers such as acetaminophen, ibuprofen, and naproxen ? Some medication that are also used for depression or seizures ? Physical therapy and exercise ? Cognitive behavioral therapy, a psychological, goal-directed approach, in which patients learn how to modify physical, behavioral, and emotional triggers of pain and stress. IF YOU ARE PRESCRIBED OPIOIDS FOR PAIN: ? Never take opioids in greater amounts or more often than prescribed. ? Follow up with your primary health care provider. o Work together to create a plan on how to manage your pain. o Talk about ways to help manage your pain that don?t involve prescription opioids. o Talk about any and all concerns and side effects. ? Help prevent misuse and abuse o Never sell or share prescription opioids. o Never use another person?s prescription opioids. ? Store prescription opioids in a secure place and out of reach of others (this may include visitors, children, friends, and family). ? Safely dispose of unused prescription opioids: Find your community drug take-back program or your pharmacy mail-back program, or flush them down the toilet, following guidance from the Food and Drug Administration (www.fda.gov/Drugs/R esourcesForYou). ? Visit www.cdc.gov/drugover dose to learn about the risks of opioids abuse and overdose. ? If you believe you may be struggling with addiction, tell your health care profe (more content not included)... [facility] ED Traumaon 03-21-2023 ED Trauma [id number] 0#1.00CD:127 [facility] Interdisciplinary Note - Jasper e Manageron 03-21-2023 Interdisciplinary Note - Aviation Safety Equipment Technician CRM spoke with patient. Patient was previous rounded on by Dr Max today. Will stay today and anticipated to need SNF No family in room. Patient is alert and oriented but states she is forgetful today as she hit her head when she feel yesterday. Whiteboard updated and CRM contact # provided. Patient verified PCP, insurance and DME. Patient is from home alone and states her adult son has moved in but is not home all the time. She denies any current H/h needs. discussed [place]. Discussed PT/OT recommend SNF. discussed local facilities and gave her a list of facilities with ratings. She prefers [facility] and is aware may need nm side and may have a room mate. [facility] but wants to talk with her daughter first. Discussed will need precert from her insurance for SNF. Reviewed Medicare rights, she denies any questions and signs form. gave patient copy of signed form. . [facility] Comment on above: Result Comment: Elec tronically Signed By: Nate CROWLEY, Grisel\.br\Date and Time Signed: 03/21/23 10:39 EDT Interdisciplinary Note - Chiara n 03-21-2023 Interdisciplinary Note - OT Ot [facility] clicks score 15/24 = SNF. Patient requires assist w/ all LE self care and transfers as this time. Patient is limited w/ attempts at function d/t 1010 pain L hip and low back area w/ transitional movements. Inpatient OT services to follow daily to progress w/ self care skills and transfers. [facility] Monitor Recordon 03-21-2023 Monitor Record [id number] 0#1.00CD:127 [facility] Monitor Record [id number] 2#1.00CD:127 [facility] Monitor Record [id number] 1#1.00CD:127 [facility] Monitor Record [id number] 8#1.00CD:127 [facility] Monitor Record [id number] 6#1.00CD:127 [facility] Monitor Record [id number] 3#1.00CD:127 [facility] Monitor Record [id number] 4#1.00CD:127 [facility] RAD - Preliminary Cat Scan R eporton 03-21-2023 RAD - Preliminary Cat Scan Report [id number] 5#1.00CD:127 [facility] RAD - Preliminary Cat Scan Report [id number] 5#1.00CD:127 [facility] Troponinon 03-21-2023 Troponin I.cardiac [Mass/Vol] 12.00 pg/mL Normal 10.10-27.10 [facility] Comment on above: Result Comment: The 95% CI (Confidence Interval) PPV (Positive Predictive Value) for myocardial infarction in females is 38 pg/mL, in males 51 pg/mL. The results should be used in conjunction with clinical conditions of myocardial infarction. (Access High Sensitivity Troponin I Instructions For Use, Layla Giovany, May 2018) Performed By: #### 1 3935237, 5068165, 3161057, 9517488, 7576075, 1842476, 7774066, 77957115, 8353797 ####[facility] [address] [place] [address] XR Hip 1 View Left + Pelviso n 03-21-2023 XR Hip 1 View Left + Pelvis Exam Date/Time: 03/20/2023 21:54 EDT Reason for Exam: Trauma;Other (please specify) Report IMPRESSION: Left hip arthroplasty. Moderate degenerative change right hip with degenerative change lower lumbar spine. CLINICAL HISTORY: Trauma COMPARISONS: NONE AVAILABLE FINDINGS: Supine AP film of the pelvis to include both hips and lateral view of the left hip were obtained. Bipolar noncemented left hip replacement. No abnormal lucency bone prosthetic interface. No fracture identified. Diffuse osteopenia. Degenerative change lower lumbar spine. Narrowing right hip joint. Ordering Provider: Rhys Chowdhury FINAL REPORT Dictated: 03/21/2023 1:42 pm Zackary Powers MD Signed (Electronic Signature): 03/21/2023 1:42 pm Signed by: Zackary Powers MD Transcribed by: JOLEEN Technologist: SRF Technical Comments Radiation Dose: Ka,r in mGy = na DAP = na [facility] eGFRon 03-21-2023 GFR/1.73 sq M.predicted among non-blacks MDRD (S/P/Bld) [Vol rate/Area] 74 mL/min/1.73 m2 Normal >=59 [facility] Comment on above: Order Comment: Order added by Discern Expert. Result Comment: Pipeline Construction Inspector karl kidney disease could be indicated at eGFR's of less than 60 mL/min/1.73m2. Kidney failure is indicated at less than 15 mL/min/1.73m2. Performed By: #### 1 1514465, 6673200, 6118124, 3169533 #### [facility] [address] [place] [address] Auto Diffon 03-20-2023 Basophils/100 WBC (Bld) 0.8 % Normal 0.0-2.0 [facility] Comment on above: Order Comment: Order Added by Discern Expert. Performed By: #### 1 8450323, 7630880, 0114275, 8720785, 2252004, 6548791, 4013326, 01386900, 6930052 ####[facility] [address] [place] [address] Basophils/Leukocytes Auto (Bld) [Pure # fraction] 0.1 E9/L Normal 0.0-0.2 [facility] Comment on above: Order Comment: Order Added by Discern Expert. Performed By: #### 1 7690542, 8374186, 7444371, 8217605, 5101171, 2570011, 1507735, 83217935, 3918443 ####[place] [address] [place] [address] Eosinophils/100 WBC (Bld) 1.5 % Normal 0.0-8.0 [facility] Comment on above: Order Comment: Order Added by Discern Expert. Performed By: #### 1 6081380, 2357787, 9519850, 2396514, 8954382, 5236594, 1168753, 61730551, 9863787 ####[address] [address] Eosinophils/Leukocyte s Auto (Bld) [Pure # fraction] 0.1 E9/L Normal 0.0-0.5 [facility] Comment on above: Order Comment: Order Added by Discern Expert. Performed By: #### 1 6810417, 9017647, 6241928, 6458498, 2417585, 6971360, 3953461, 95092830, 8927887 ####[address] [address] Lymphocytes/100 WBC (Bld) 24.3 % Normal 14.0-50.0 [facility] Comment on above: Order Comment: Order Added by Wayne Expert. Performed By: #### 1 2164931, 6493960, 7330017, 9004490, 1028994, 1547273, 2677728, 69766595, 8813231 ####[address] [address] Lymphocytes/Leukocyte s Auto (Bld) [Pure # fraction] 1.7 E9/L Normal 1.0-4.0 [facility] Comment on above: Order Comment: Order Added by Discern Expert. Performed By: #### 1 7636350, 4494436, 1196294, 3941543, 1416184, 4721017, 8243928, 79551706, 0014564 ####[address] [address] Monocytes/100 WBC (Bld) 10.3 % Normal 4.0-14.0 [facility] Comment on above: Order Comment: Order Added by Discern Expert. Performed By: #### 1 8042561, 4123698, 5578378, 8805396, 9187735, 8999589, 1364066, 82918480, 2549337 ####[facility] [address] [place] [address] Monocytes/Leukocytes Auto (Bld) [Pure # fraction] 0.7 E9/L Normal 0.2-1.0 [facility] Comment on above: Order Comment: Order Added by Discern Expert. Performed By: #### 1 0244529, 4585215, 7908337, 4382379, 9175263, 2214416, 0778876, 08721237, 2760224 ####[facility] [address] [place] [address] Neutrophils/100 WBC (Bld) 63.1 % Normal 36.0-75.0 [facility] Comment on above: Order Comment: Order Added by Discern Expert. Performed By: #### 1 9157144, 6685725, 7987762, 8936647, 1335610, 8615960, 6375668, 67663160, 0442609 ####[facility] [address] [place] [address] Neutrophils/Leukocyte s Auto (Bld) [Pure # fraction] 4.5 E9/L Normal 2.0-7.5 [facility] Comment on above: Order Comment: Order Added by Discern Expert. Performed By: #### 1 2172885, 4610714, 5093992, 2831245, 5854515, 2527147, 3920183, 45462990, 8060360 ####[facility] [address] [place] [address] BMPon 03-20-2023 Creatinine [Mass/Vol] 1.1 mg/dL Normal 0.5-1.3 [facility] Comment on above: Performed By: #### 1 0563786, 3036250, 7443141, 4513558, 5089195, 5314804, 6083285, 67083862, 4280216 ####[facility] [address] [place] [address] Urea nitrogen [Mass/Vol] 40 mg/dL High 5-21 [facility] Comment on above: Performed By: #### 1 6610085, 9927826, 5415988, 0656049, 0685180, 3583610, 2633360, 59008208, 8004258 ####[facility] [address] [place] [address] Urea nitrogen/Creatinine [Mass ratio] 36 No Units High 10-20 [facility] Comment on above: Performed By: #### 1 9485128, 8021844, 0758679, 1450216, 4446228, 5265946, 8422377, 64318120, 0013854 ####[facility] [address] [place] [address] Anion gap [Moles/Vol] 11 mmol/L Normal 6-16 [facility] Comment on above: Performed By: #### 1 6692103, 5594373, 2112867, 7625201, 5131109, 5616687, 5333764, 06985844, 2032075 ####[facility] [address] [place] [address] Calcium [Mass/Vol] 9.6 mg/dL Normal 8.9-11.1 [facility] Comment on above: Performed By: #### 1 9682876, 2573780, 2868330, 2204568, 7196140, 0910895, 2960212, 97726045, 3607677 ####[facility] [address] [place] [address] Chloride [Moles/Vol] 106 mmol/L Normal 101-111 [facility] Comment on above: Performed By: #### 1 9260455, 8223367, 8953578, 9323220, 8432736, 3066332, 1677971, 04952199, 7248608 ####[facility] [address] [place] [address] CO2 [Moles/Vol] 29 mmol/L Normal 21-[address] [facility] Comment on above: Performed By: #### 1 5619589, 6812428, 8202498, 7037305, 1140147, 3339347, 1109121, 32405455, 0857216 ####[facility] [address] [place] [address] Glucose [Mass/Vol] 104 mg/dL Normal 55-199 [facility] Comment on above: Result Comment: If t his glucose result represents a fasting glucose, interpretation should refer to the following reference range: 55-99 mg/dL Performed By: #### 1 4913283, 1090884, 0032414, 0069995, 2811010, 8819998, 3233397, 28943949, 2995945 ####[facility] [address] [place] [address] Potassium [Moles/Vol] 3.7 mmol/L Normal 3.5-5.3 [facility] Comment on above: Performed By: #### 1 3932795, 9891972, 1871888, 5866593, 2865051, 5028527, 0306826, 05184238, 5133874 ####[facility] [address] [place] [address] Sodium [Moles/Vol] 142 mmol/L Normal 135-145 [facility] Comment on above: Performed By: #### 1 7558725, 5047688, 3664044, 5670408, 5009634, 8388130, 7925263, 19596357, 8505234 ####[facility] [address] [place] [address] CBC w/ Auto Diffon 3 Erythrocyte distribution width (RBC) [Ratio] 13.4 % Normal 10.9-14.2 [facility] Comment on above: Performed By: #### 1 6396998, 8707858, 5894135, 1248622, 0315089, 8476597, 2930224, 27191866, 3862481 ####[facility] [address] [place] [address] Hematocrit (Bld) [Volume fraction] 35.0 % Normal 34.0-46.0 [facility] Comment on above: Performed By: #### 1 7006859, 4894002, 9550567, 5516776, 9695762, 7244431, 9823037, 61114367, 3579386 ####[place] [address] [place] [address] Hemoglobin (Bld) [Mass/Vol] 11.8 g/dL Low 12.0-16.0 [facility] Comment on above: Performed By: #### 1 2645996, 1594948, 7310254, 9136209, 0170698, 7592085, 6685810, 02101498, 7602394 ####[place] [address] MCH (RBC) [Entitic mass] 29.8 pg Normal 27.0-34.0 [facility] Comment on above: Performed By: #### 1 4033771, 0318305, 4725112, 2584326, 8007535, 9557487, 3113060, 51319626, 3019763 ####[place] [address] MCHC (RBC) [Mass/Vol] 33.6 g/dL Normal 31.4-36.0 [facility] Comment on above: Performed By: #### 1 3442918, 6267019, 4558725, 1756498, 5976203, 8369650, 3597971, 26276452, 8919483 ####[place] [address] MCV (RBC) [Entitic vol] 88.7 fL Normal 80.0-100.0 [facility] Comment on above: Performed By: #### 1 6661977, 6637762, 7929288, 6296174, 2515340, 5030930, 8437112, 67690497, 5554260 ####[address] [address] Platelet mean volume (Bld) [Entitic vol] 8.5 fL Normal 6.4-10.8 [facility] Comment on above: Performed By: #### 1 9526020, 4672555, 6158964, 3443734, 9815781, 7686101, 2155173, 32457287, 9028762 ####[facility] [address] [place] [address] Platelets (Bld) [#/Vol] 185.0 E9/L Normal 150.0-500.0 [facility] Comment on above: Performed By: #### 1 5984582, 0628263, 8415084, 0944129, 5146522, 2442513, 0969470, 39809907, 0723609 ####[facility] [address] [place] [address] RBC (Bld) [#/Vol] 4.0 E12/L Low 4.3-5.9 [facility] Comment on above: Performed By: #### 1 9914413, 4046270, 1043943, 1635477, 4810971, 6015403, 7631708, 31568822, 7894615 ####[facility] [address] [place] [address] WBC corrected for nucl RBC Auto (Bld) [#/Vol] 7.1 E9/L Normal 4.0-11.0 [facility] Comment on above: Performed By: #### 1 8744115, 3918661, 3588272, 0717792, 4946298, 6946823, 8814635, 29697554, 6171082 ####[facility] [address] [place] [address] Consent for Treatmenton 03-11 Consent for Treatment [id number]# 1.00CD:127 [facility] Ethanolon 03-20-2023 Ethanol [Mass/Vol] mg/dL Normal <=7 [facility] Comment on above: Performed By: #### 1 1609091, 5016649, 8133952, 5441966 #### [facility] [address] [place] [address] Hep Func Panelon 03-20-2023 Albumin [Mass/Vol] 3.8 g/dL Normal 3.3-5.0 [facility] Comment on above: Performed By: #### 1 7693467, 2829667, 9555515, 0632342, 2365113, 3210824, 7398103, 35748840, 9931084 ####[facility] [address] [place] [address] Albumin/Globulin (S) [Mass conc ratio] 1.3 Normal 1.1-2.2 [facility] Comment on above: Performed By: #### 1 9372344, 4684352, 1303201, 6795865, 2987862, 8430104, 2638055, 37082503, 1415200 ####[place] [address] [place] [address] ALP [Catalytic activity/Vol] 76 Int._Unit/L Normal 21-98 [facility] Comment on above: Performed By: #### 1 8348647, 3827663, 8092448, 0134445, 6098402, 1574307, 6532183, 94635892, 6634604 ####[facility] [address] [place] [address] ALT No additional P-5'-P [Catalytic activity/Vol] 18 Int._Unit/L Normal 6-46 [facility] Comment on above: Performed By: #### 1 0472297, 7055489, 5586908, 3634448, 4938603, 0202259, 2541323, 43683239, 0234160 ####[address] [address] AST [Catalytic activity/Vol] 18 Int._Unit/L Normal 5-43 [facility] Comment on above: Performed By: #### 1 5739376, 0534750, 0976525, 0008426, 5524623, 5825490, 5726704, 20670816, 3185682 ####[facility] [address] [place] [address] Bilirubin [Mass/Vol] 0.5 mg/dL Normal 0.0-1.1 [facility] Comment on above: Performed By: #### 1 2933813, 2275556, 3493608, 7948848, 1436392, 1996705, 5451593, 22569388, 8381769 ####[facility] [address] [place] [address] Bilirubin.direct [Mass/Vol] 0.1 mg/dL Normal 0.1-0.4 [facility] Comment on above: Performed By: #### 1 1176822, 3679070, 6452517, 9390988, 1597206, 8505495, 9645469, 33962303, 6983336 ####[address] [address] Bilirubin.indirect [Mass or moles/Vol] 0.4 mg/dL Normal 0.1-0.9 [facility] Comment on above: Performed By: #### 1 4893186, 9234872, 8915778, 7749259, 6808312, 3714355, 1757973, 52524360, 1894063 ####[address] [address] Globulin (S) [Mass/Vol] 2.9 g/dL Normal 1.4-4.0 [facility] Comment on above: Performed By: #### 1 6446138, 9969513, 3896223, 3906033, 2972566, 9949313, 5256938, 88473101, 6601522 ####[address] [address] Protein [Mass/Vol] 6.7 g/dL Normal 6.0-7.8 [facility] Comment on above: Performed By: #### 1 8570926, 2211461, 6946014, 4294250, 2298755, 8626113, 0882644, 94308371, 7212406 ####[place] [address] [place] [address] Lactic Acidon 03-20-2023 Lactate [Mass/Vol] 0.7 mmol/L Normal 0.5-2.2 [facility] Comment on above: Performed By: #### 1 1846783, 5248360, 8502506, 1512036, 0134090, 3835617, 9888807, 07755519, 2282926 ####[facility] [address] [place] [address] Lipase Levelon 03-20-2023 Lipase [Catalytic activity/Vol] 36 U/L Normal 13-58 [facility] Comment on above: Performed By: #### 1 [id number], [id number], [id number], [id number], [id number], [id number], [id number], [id number] ####[facility] [address] [place] [address] PT & PTTon 03-20-2023 aPTT Coag (PPP) [Time] 38.9 second(s) High 25.1-36.5 [facility] Comment on above: Result Comment: Para meter 15 days - 4 weeks 1 - 5 months 6 - 11 months 1 - 5 years 6 - 10 years 11 - 17 years PTT Mean: 35.4 (27.6-45.6) Mean: 33.5 (24.8-40.7) Mean: 32.4 (25.1-40.7) Mean: 31.6 (24.0-39.2) Mean: 31.6 (26.9-38.7) Mean: 31.0 (24.6-38.4) Pediatric Reference ranges were obtained from a study by Rad Washington et al. prepared from 1437 samples obtained at 7 different centers using the same coagulation reagent and instrumentation [place] [facility] [place] Currently there are no coagulation studies available worldwide for children to 14 days, and no normal ranges. Heparin therapeutic range (represented by Anti-Factor Xa activity of 0.2 - 0.4 U/mL) corresponds to PTT of 56.6 - 109.0 sec. Performed By: #### 1 [id number], [id number], [id number], [id number], [id number], [id number], [id number], [id number] ####[facility] [address] [place] [address] INR Coag (PPP) [Relative time] 1.3 {INR} Invalid Interpretation Code [facility] Comment on above: Result Comment: INR results are specifically intended to assess patients stabilized on long-term Anticoagulation therapy suggested INR?s ?Less Intensive Anticoagulation? 2.0 ? 3.0 Conventional Range 3.0 ? 4.5 Performed By: #### 1 [id number], [id number], [id number], 3958117, 1367814, 7887594, [id number], [id number], [id number] ####[facility] [address] [place] [address] PT Coag (PPP) [Time] 14.9 second(s) High 9.4-12.5 [facility] Comment on above: Result Comment: 15 d ays - 4 weeks 1 - 5 months 6 -11 months 1 ? 5 years 6 ? 10 years 11 -17 years Mean: 11.2 (9.5 ? 12.6) Mean: 11.0 (9.7 ? 12.8) Mean: 11.0 (9.8 ? 13.0) Mean: 11.3 (9.9 ? 13.4) Mean: 11.7 (10.0 ? 14.6) Mean: 11.8 (10.0 - 14.1) Pediatric Reference ranges were obtained from a study by Rad Washington et al. prepared from 1437 samples obtained at 7 different centers using the same coagulation reagent and instrumentation [place] [facility] [place] Currently there are no coagulation studies available worldwide for children to 14 days, and no normal ranges. Performed By: #### 1 [id number], [id number], [id number], [id number], [id number], 8369015, 4996433, [id number], [id number] ####[facility] [address] [place] [address] Pre-Arrival Noteon 3 Pre-Arrival Note Pre-Arrival Summary Name: , Current Date: 03/20/2023 20:01:50 EDT Gender: Date of : Age: Pre-Arrival Type: EMS ETA: 03/20/2023 20:23:00 EDT Primary Care Physician: Presenting Problem: Pre-Arrival User: Lazaro Morales Referring Source: Location: [place] Completion Date/Time: 03/20/2023 19:53:00 [facility] Emergency Department Pre-Hospital Report Form Vital Signs: 141/85 91p 18rr 96%ra Pre-Hospital Report:fall from standing on elequis and asa l leg pain Treatment in Route: Response to Treatment: Misc. Issues: Normal [facility] eGFRon 03-20-2023 GFR/1.73 sq M.predicted among non-blacks MDRD (S/P/Bld) [Vol rate/Area] 51 mL/min/1.73 m2 Low >=59 [facility] Comment on above: Order Comment: Order added by Discern Expert. Result Comment: Pipeline Construction Inspector karl kidney disease could be indicated at eGFR's of less than 60 mL/min/1.73m2. Kidney failure is indicated at less than 15 mL/min/1.73m2. Performed By: #### 1 [id number], [id number], 8348901, [id number], 4511332, [id number], [id number], [id number] ####[facility] [address] [place] [address] Provider Letteron 03-17-2023 Provider Letter March 17, 2023 [facility] [address] [place] [address] : 1940 To Whom It May Concern, Please excuse daughter, Doris Benito, from work 03/01/2023. FMLA Sincerely, Dr. Paul Gomez General Surgery Normal [facility] General Surgery Office/Clini c Noteon 03-08-2023 General Surgery Office/Clinic Note HPI Staff Darwin is an 82 y.o. female here for s/p cyst removal done 02/17/23 History of Present Illness [facility] is a 82-year-old female who presents today for a postoperative follow-up following a left breast cyst excision performed on 02/17/2023. She is here for suture removal. Review of Systems Constitutional: no fever, no sweats, no weight loss. Eyes: no glasses, no blurred vision, no visual loss. ENMT: no dentures, no hoarseness, no swallowing difficulties, no hearing loss, no ear infection (s), no nose bleeds. Cardiovascular: normal blood pressure, no chest pain, regular heartbeat, no heart murmur. Respiratory: no shortness of breath, no cough, no wheezing, no asthma. Gastrointestinal: no nausea, no vomiting, no diarrhea, no constipation, no blood in stool, no change in bowel habits, no abdominal pain, no hepatitis. Genitourinary: no kidney stones, no urine infection, no difficulty passing urine. Musculoskeletal: no pain, no weakness. Skin: no changing moles, no rash, no skin lumps. Neurologic: no seizures, no epilepsy, no headache. Psychiatric: no emotional, no psychiatric problem. Endocrine: no thyroid, no diabetes. Heme/Lymph: no bleeding problems, no anemia, no blood clots, no transfusions. Allergy/Immunologic: no swollen lymph nodes/glands, no IV drug abuse. Other: Additional ROS info: Except as noted in the above Review of Systems and in the History of Present Illness, all other systems have been reviewed and are negative or noncontributory. Physical Exam General: No acute distress Respiratory: Unlabored breathing on room air Cardiac: Regular rate and rhythm Abdomen: Soft nontender nondistended Skin: Her incision is completely healed, and her sutures were removed in the office. Assessment/Plan [facility] a 82-year-old female here for a postoperative follow-up following a left breast cyst excision performed on 02/17/2023. 1. Epidermal cyst (L72.0: Epidermal cyst) The patient may follow up with us as needed. ATTESTATION: Documentation services were performed after patient or guardian consented to allow [facility] to record this visit. SILVER health insurance specialist and provider reviewed before signing. SILVER: Romi Cee. Follow-up No qualifying data available Problem List/Past Medical History Ongoing Acute post-operative pain BMI 33.0-33.9,adult Carpal tunnel syndrome Closed fracture of left femur Difficulty walking up stairs Epidermal cyst HTN - Hypertension Left breast abscess Mixed hyperlipidemia On apixaban therapy Post-traumatic subdural hematoma Historical AAA - Abdominal aortic aneurysm Anxiety Atrial fibrillation Jeremias's deformity Venous insufficiency of lower extemity Procedure/Surgical History Excision of cyst (02/17/2023), Hip arthroplasty (07/06/2019), right carpal tunnel release (02/19/2014), BONE SPURS FOOT (03/22/2004), AAA repair, achilles tendeon repair, Colonoscopy, EXCISION CYST OF LEG, History of artificial heart valve.., Knee replacement, open heart, pig valve, REMOVAL CYST ON HAND. Medications amitriptyline 25 mg Tab, Oral, Once a day (at bedtime) amLODIPine 10 mg Tab, 10 mg= 1 tab(s), Oral, Daily aspirin 81 mg oral tablet, 81 mg= 1 tab(s), Oral, Daily atorvastatin 40 mg Tab, 40 mg= 1 tab(s), Oral, Once a day (at bedtime) Eliquis 5 mg oral tablet fluticasone 0.05 mg/inh Nasal [place], 2 spray(s), Nasal, Daily furosemide 40 mg Tab, 40 mg= 1 tab(s), Oral, Daily lisinopril 20 mg Tab, 20 mg= 1 tab(s), Oral, Daily Metoprolol tartrate 50 mg Tab, 50 mg= 1 tab(s), Oral, BID Restasis ophthalmic, 1 drop(s), Eye-Both, q12hr Tylenol 325 mg Tab, 650 mg= 2 tab(s), Oral, q4hr, PRN Vitamin C 500 mg Tab, 500 mg= 1 tab(s), Oral, BIDWM Vitamin D2 50,000 intl units (1.25 mg) oral capsule, Oral, Daily Allergies traMADol (Hallucinations) Percocet 5/325 (paranoid and hauucinated) Ultram (Confusion) ampicillin (Flushing) dicyclomine (Unknown) erythromycin (Flushing) Social History Alcohol - Denies Alcohol Use, 06/04/2011 Alcohol use interferes with work or home: No., 08/20/2018 Substance Abuse - Denies Substance Abuse, 06/04/2011 IV drug use: No., 08/20/2018 Tobacco - Denies Tobacco Use, 06/04/2011 Former smoker, quit more than 30 days ago Tobacco Use:., 01/04/2023 Family History Acute myocardial infarction: Mother. Alcoholism: Father. Alzheimer's disease: Father and Sister. Crohn's disease: Sister. Heart failure: Mother. Hypertension: Mother and Sister. Hypothyroidism: Sister. Primary malignant neoplasm of female genital organ: Sister. Immunizations Vaccine Date Status Comments influenza virus vaccine, inactivated 08/01/2022 Recorded diphtheria/pertussis , acel/tetanus adult 01/31/2022 Given influenza virus vaccine, inactivated 07/24/2021 Recorded SARS-CoV-2 (COVID-19) mRNA BNT-162b2 vax 07/24/2021 Recorded SARS-CoV-2 (COVID-19) mRNA BNT-162b2 vax 12/06/2020 Recorded 2023-01-04: TP (more content not included)... [facility] Comment on above: Result Comment: Elec tronically Signed By: Paul Gomez MD\.br\Date and Time Signed: 03/07/23 22:39 EDT\.br\Electronically Co-Signed By: Romi Cee\.br\Date and Time Co-Signed: 03/01/23 17:00 EDT IntraOperative Documentson 0 02-22-2023 IntraOperative Documents [id number]# 1.00CD:127 [facility] Main OR Intraoperative Recor don 02-19-2023 Main OR Intraoperative Record IntraOp Document Type FT Summary Primary Physician: Paul Gomez MD Finalized Date/Time: 02/19/23 07:56:54 Pt. Name: [facility]/Sex: 1940 Female Med Rec #: [id number] Physician: Paul Gomez MD Financial #: [id number] Pt. Type: A Room/Bed: AX10/11 Admit/Disch: 02/17/23 11:38:38 - 02/17/23 14:50:00 Institution: Case Times FT Entry 1 Patient Times In Room 02/17/23 13:46:00 Out Room 02/17/23 14:14:00 Procedure Times Start 02/17/23 13:59:00 Stop 02/17/23 14:10:00 Anesthesia Times Last Modified By: Dariana Dos Santos RN 02/17/23 14:16:32 General Comments: 02/19/23 Chart opened to review and send charges LRoth CSFA Case Attendance FT Entry 1 Entry 2 Entry 3 Case Attendee Patricia GUILLEN, Paul Wolff CST, Dariana Lennon RN Role Performed Surgeon - Primary Scrub - Primary Neurological Physiotherapist - Primary Time In 02/17/23 13:46:00 02/17/23 13:46:00 02/17/23 13:46:00 Time Out 02/17/23 14:14:00 02/17/23 14:14:00 02/17/23 14:14:00 Procedure CYST LESION CYST LESION CYST LESION REMOVAL(Left) REMOVAL(Left) REMOVAL(Left) Comments Last Modified By: Dariana Dos Santos RN, RN, Olivia A Saflund RN, Olivia A 02/17/23 15:07:44 02/17/23 15:07:44 02/17/23 15:07:44 Perioperative Protocols FT Pre-Care Text: Implements protective measures prior to operative or invasive procedure, confirms identity before the operative or invasive procedure, verifies operative procedure, surgical site, and laterality Entry 1 Procedure(s) CYST LESION Patient Identity Birthday, ID Band REMOVAL(Left) Verified (select at Check, Patient least 2): Participation Consents / H and P HandP, Surgery/Procedure Operative Site Present Verified Consent, Transfusion Marking Verified Consent Surgical Site Yes Laterality Verified Yes Verified Procedure Verified Yes Correct Patient Yes Position Verified Availability Equipment, Medication Prep Dry Yes Verified (If Applicable) PreOp Antibiotic No Time Out Patricia GUILLEN, Paul Walker, Given Participants New GARCIA, Raya Hansen RN, Olivia A Time Out Complete 02/17/23 13:58:00 Outcomes Met? Yes Last Modified By: Dariana Dos Santos RN 02/17/23 14:09:01 Post-Care Text: The patient is free from signs and symptoms of injury caused by extraneous objects Allergy Information FT Pre-Care Text: Verifies allergies Entry 1 Allergies Reviewed? Yes Allergies Reviewed Self/Patient With Outcomes Met? Yes Last Modified By: Dariana Dos Santos RN 02/17/23 15:07:55 Post-Care Text: The patient received appropriate medication(s) safely administered during the perioperative period Surgical Procedures FT Entry 1 Procedure Description Procedure CYST LESION REMOVAL Modifiers Left Surgeon Description LEFT BREAST CYST EXCISION Primary Procedure Yes Primary Surgeon Paul Gomez MD Start 02/17/23 13:59:00 Stop 02/17/23 14:10:00 Anesthesia Type Local Surgical Service General Wound Class 1 - Clean Last Modified By: Dariana Dos Santos RN 02/17/23 15:08:15 General Case Data FT Pre-Care Text: Classifies surgical wound, implements aseptic technique, initiates traffic control Entry 1 Case Information OR OR 5 FT Case Level Level 1 Wound Class 1 - Clean Specialty General Preop Diagnosis EPIDERMAL CYST Postop Same As Preop No Postop Diagnosis LEFT BREAST CYST Outcomes Met? Yes Last Modified By: Dariana Dos Santos RN 02/17/23 15:08:40 Post-Care Text: The patient is free from signs and symptoms of infection Skin Assessment (Pre Procedure) FT Pre-Care Text: Implements protective measures to prevent skin/ tissue injury due to thermal or mechanical sources Evaluates for signs and symptoms of physical injury to skin and tissue Entry 1 Skin Integrity Intact, [place], Warm, and Skin Abnormality No Dry Outcomes Met? Yes Last Modified By: Dariana Dos Santos RN 02/17/23 15:08:49 Post-Care Text: The patient is free from signs and symptoms of injury caused by extraneous objects Patient Positioning FT Pre-Care Text: Identifies physical alterations that require additional precautions for procedure-specific positioning, verifies presence of prosthetics or corrective devices, positions the patient, evaluates the patient for signs and symptoms of injury as a result of positioning Entry 1 Procedure CYST LESION Body Position Supine REMOVAL(Left) Feet Uncrossed? Yes Left Arm Position Resting at Side Right Arm Position Resting at Side Left Leg Position Extended Right Leg Position Extended Positioning Device Safety Strap, Pillow Under Head Large, Egg Crate Padding, Pillow Large Under Knees Press Points Checked Yes By Dariana Dos Santos RN, Mourany MD, John E. Outcomes Met? Yes Last Modified By: Dariana Dos Santos RN 02/17/23 15:09:22 Post-Care Text: The patient is free from signs and symptoms of injury related to positioning Patient Care Devices FT Pre-Care Text: Implements (more content not included)... [facility] Discharge Instructionson Discharge Instructions [id number] 7#1.00CD:127 [facility] IntraOperative Documentson 0 02-18-2023 IntraOperative Documents [id number] 1#1.00CD:127 [facility] Preoperative Documentson Preoperative Documents [id number] 4#1.00CD:127 [facility] Prescriptions/Work Noteson 0 02-18-2023 Prescriptions/Work Notes [id number] 1#1.00CD:127 [facility] Discharge Instructionson Discharge Instructions ANETALINDAJEAN DARWIN Jeanne :1940 Visit Date:02/17/2023 Inpatient Discharge Instructions Your Care Team Admitting Physician - Paul Gomez MD Referring Physician - Paul Gomez MD Reason for Your Visit EPIDERMAL CYST Tests Performed Pathology Tissue Exam -- Results Pending -- Please visit your patient portal for your results or contact your primary care physician. This Is Your Medications List acetaminophen (Tylenol 325 mg Tab) amitriptyline (amitriptyline 25 mg Tab) amlodipine (amLODIPine 10 mg Tab) apixaban (Eliquis 5 mg oral tablet) ascorbic acid (Vitamin C 500 mg Tab) aspirin (aspirin 81 mg oral tablet) atorvastatin (atorvastatin 40 mg Tab) cycloSPORINE ophthalmic (Restasis ophthalmic) ergocalciferol (Vitamin D2 50,000 intl units (1.25 mg) oral capsule) fluticasone nasal (fluticasone 0.05 mg/inh Nasal [place]) furosemide (furosemide 40 mg Tab) lisinopril (lisinopril 20 mg Tab) metoprolol (Metoprolol tartrate 50 mg Tab) Procedure History Hip arthroplasty (07/06/2019), right carpal tunnel release (02/19/2014), BONE SPURS FOOT (03/22/2004), AAA repair, achilles tendeon repair, Colonoscopy, EXCISION CYST OF LEG, History of artificial heart valve.., Knee replacement, open heart, pig valve, REMOVAL CYST ON HAND. What to do next Instructions From Your Doctor Event Name Event Result Discharge Instructions Freetext Okay to remove dressing tomorrow okay to resume Eliquis tomorrow okay to shower tomorrow do not submerge incision underwater as important for 10 days after surgery please schedule follow-up in our office for suture removal in 10 days Discharge Activity Ambulate as tolerated, Expect mild pain, Expect minimal amount of drainage and/or bleeding Discharge Restrictions No restrictions Discharge Diet(s) Regular Call Your Doctor For Persistent or heavy bleeding, Temperature above 101.5 degrees, Redness, swelling, or pus at operative site, Severe pain at the operative site [facility] Discharge Instructions Discharge Instructions New Follow Up Appointments after Discharge Follow Up with Paul Gomez When: In 10 days 02/27/2023 EDT Comments: Call for followup appointment Where: [facility] [address] [address] [phone] [employer] (1) Medications What How Much When Instructions Next Dose Unchanged acetaminophen (Tylenol 325 mg Tab) 2 Tablets By Mouth Every 4 hours as needed for Pain/Fever Unchanged amitriptyline (amitriptyline 25 mg Tab) By Mouth Once a day (at bedtime) Unchanged amlodipine (amLODIPine 10 mg Tab) 1 Tablets By Mouth Every day Unchanged apixaban (Eliquis 5 mg oral tablet) Unchanged ascorbic acid (Vitamin C 500 mg Tab) 1 Tablets By Mouth Twice a day (with meals) Unchanged aspirin (aspirin 81 mg oral tablet) 1 Tablets By Mouth Every day Unchanged atorvastatin (atorvastatin 40 mg Tab) 1 Tablets By Mouth Once a day (at bedtime) Unchanged cycloSPORINE ophthalmic (Restasis ophthalmic) 1 Drops Both eyes Every 12 hours Unchanged ergocalciferol (Vitamin D2 50,000 intl units (1.25 mg) oral capsule) By Mouth Every day Unchanged fluticasone nasal (fluticasone 0.05 mg/ inh Nasal [place]) 2 Sprays Nasal Inhalation Every day Unchanged furosemide (furosemide 40 mg Tab) 1 Tablets By Mouth Every day Unchanged lisinopril (lisinopril 20 mg Tab) 1 Tablets By Mouth Every day Unchanged metoprolol (Metoprolol tartrate 50 mg Tab) 1 Tablets By Mouth 2 times a day TAKE 1 TABLET BY MOUTH TWICE DAILY Test Results No qualifying data available. Allergies traMADol (Hallucinations) Percocet 5/325 (paranoid and hauucinated) Ultram (Confusion) ampicillin (Flushing) dicyclomine (Unknown) erythromycin (Flushing) Problems Ongoing - Any problem that you are currently receiving treatment for. Acute post-operative pain BMI 33.0-33.9,adult Carpal tunnel syndrome Closed fracture of left femur Difficulty walking up stairs Epidermal cyst HTN - Hypertension Left breast abscess Mixed hyperlipidemia On apixaban therapy Post-traumatic subdural hematoma Historical - Any problem that you are no longer receiving treatment for. AAA - Abdominal aortic aneurysm Anxiety Atrial fibrillation Jeremias's deformity Venous insufficiency of lower extemity Education Materials Excision of Skin Lesions, Care After The following information offers guidance on how to care for yourself after your procedure. Your health care provider may also give you more specific instructions. If you have problems or questions, contact your health care provider. What can I expect after the procedure? After your procedure, it is common to have: ? Soreness or mild pain. ? Some redness and swelling. Follow these instructions at home: Excision site care ? Follow instructions from your health care provider about how to take care of y (more content not included)... [facility] Comment on above: Result Comment: Elec tronically Signed By: Nic CROWLEY, Jamee Jang\.br\Date and Time Signed: 02/17/23 14:35 EDT Inpatient Patient Summaryon 02-17-2023 Inpatient Patient Summary [place] [address] [facility] Clinical Discharge Instructions PERSON INFORMATION Name: [facility] Admitting Physician: aPul Gomez MD Attending Physician: Paul Gomez MD PCP: JAVIER MARY DO Discharge Diagnosis: Comment: PATIENT EDUCATION INFORMATION Instructions: Excision of Skin Lesions, Care After Medication Leaflets: Follow up: With: Address: When: Paul Gomez [address] [phone] Business (1) In 10 days 02/27/2023 Comments: Call for followup appointment MEDICATION LIST Medications to Continue with No Changes Other Medications acetaminophen (Tylenol 325 mg Tab) 2 Tablets By Mouth every 4 hours as needed Pain/Fever. amitriptyline (amitriptyline 25 mg Tab) By Mouth once a day (at bedtime). amlodipine (amLODIPine 10 mg Tab) 1 Tablets By Mouth every day. apixaban (Eliquis 5 mg oral tablet) ascorbic acid (Vitamin C 500 mg Tab) 1 Tablets By Mouth twice a day (with meals). aspirin (aspirin 81 mg oral tablet) 1 Tablets By Mouth every day. atorvastatin (atorvastatin 40 mg Tab) 1 Tablets By Mouth once a day (at bedtime). cycloSPORINE ophthalmic (Restasis ophthalmic) 1 Drops Both eyes every 12 hours. ergocalciferol (Vitamin D2 50,000 intl units (1.25 mg) oral capsule) By Mouth every day. fluticasone nasal (fluticasone 0.05 mg/inh Nasal [place]) 2 Sprays Nasal Inhalation every day. furosemide (furosemide 40 mg Tab) 1 Tablets By Mouth every day. lisinopril (lisinopril 20 mg Tab) 1 Tablets By Mouth every day. metoprolol (Metoprolol tartrate 50 mg Tab) 1 Tablets By Mouth 2 times a day. TAKE 1 TABLET BY MOUTH TWICE DAILY. Comment: [facility] Outpatient Surgery Discharge Instructionon 02-17-2023 Outpatient Surgery Discharge Instruction [address] [address] Patient Discharge Instructions PERSON INFORMATION Name: [facility] Date of : 1940 Current Date: 02/17/2023 14:26:04 PHYSICIANS Admitting Physician: Paul Gomez MD Discharge Diagnosis: [facility] has been given the following list of follow-up instructions, prescriptions, and patient education materials: PATIENT FOLLOW-UP INFORMATION Diet: Regular Discharge Activity: Ambulate as tolerated, Expect mild pain, Expect minimal amount of drainage and/or bleeding Discharge Restrictions: No restrictions Call Your Doctor For: Persistent or heavy bleeding, Temperature above 101.5 degrees, Redness, swelling, or pus at operative site, Severe pain at the operative site Additional Instructions: Okay to remove dressing tomorrow okay to resume Eliquis tomorrow okay to shower tomorrow do not submerge incision underwater as important for 10 days after surgery please schedule follow-up in our office for suture removal in 10 days IF UNABLE TO CONTACT YOUR PHYSICIAN AND YOU FEEL IT IS AN EMERGENCY, GO TO THE NEAREST EMERGENCY ROOM OR CALL [address] BARBARA E, have received the attached patient education materials/instructio ns and have verbalized understanding: May we do a follow up call? Yes No I was present when discharge instructions were given Patient Signature Date Clinican/Nurse Signature Date Follow up: With: Address: When: Paul Gomez [address] [place] [address], [place] [address], [address] [address] [phone] Business (1) In 10 days 02/27/2023 Comments: Call for followup appointment [facility] You may receive a survey from [employer] asking you to rate your care experience. Your feedback is important and will help us understand what we do well and how we can improve the quality of care we provide to you, your loved ones and our community. It?s an honor to serve you. Thank you for choosing [facility] HERE ARE THE MEDICATION CHANGES THAT OCCURRED DURING YOUR HOSPITAL STAY Medications to Continue with No Changes Other Medications acetaminophen (Tylenol 325 mg Tab) 2 Tablets By Mouth every 4 hours as needed Pain/Fever. amitriptyline (amitriptyline 25 mg Tab) By Mouth once a day (at bedtime). amlodipine (amLODIPine 10 mg Tab) 1 Tablets By Mouth every day. apixaban (Eliquis 5 mg oral tablet) ascorbic acid (Vitamin C 500 mg Tab) 1 Tablets By Mouth twice a day (with meals). aspirin (aspirin 81 mg oral tablet) 1 Tablets By Mouth every day. atorvastatin (atorvastatin 40 mg Tab) 1 Tablets By Mouth once a day (at bedtime). cycloSPORINE ophthalmic (Restasis ophthalmic) 1 Drops Both eyes every 12 hours. ergocalciferol (Vitamin D2 50,000 intl units (1.25 mg) oral capsule) By Mouth every day. fluticasone nasal (fluticasone 0.05 mg/inh Nasal [place]) 2 Sprays Nasal Inhalation every day. furosemide (furosemide 40 mg Tab) 1 Tablets By Mouth every day. lisinopril (lisinopril 20 mg Tab) 1 Tablets By Mouth every day. metoprolol (Metoprolol tartrate 50 mg Tab) 1 Tablets By Mouth 2 times a day. TAKE 1 TABLET BY MOUTH TWICE DAILY. PATIENT EDUCATION INFORMATION Instructions: Excision of Skin Lesions, Care After The following information offers guidance on how to care for yourself after your procedure. Your health care provider may also give you more specific instructions. If you have problems or questions, contact your health care provider. What can I expect after the procedure? After your procedure, it is common to have: ? Soreness or mild pain. ? Some redness and swelling. Follow these instructions at home: Excision site care ? Follow instructions from your health care provider about how to take care of your excision site. Make sure you: ? Wash your hands with soap and water for at least 20 seconds before and after you change your bandage (dressing). If soap and water are not available, use hand driver salesman. ? Change your dressing as told by your health care provider. ? Leave stitches (sutures), skin glue, or adhesive strips in place. These skin closures may need to stay in place for 2 weeks or longer. If adhesive strip edges start to loosen and curl up, you may trim the loose edges. Do not remove adhesive strips completely unless your health care provider tells you to do that. ? Check the excision area every day for signs of infection. Watch for: ? More redness, swelling, or pain. ? Fluid or blood. ? Warmth. ? Pus or a bad smell. ? Keep the site clean, dry, and (more content not included)... [facility] Patient Education - [place] 0 02-17-2023 Patient Education - Text Dermatology Excision of Skin Lesions, Care After The following information offers guidance on how to care for yourself after your procedure. Your health care provider may also give you more specific instructions. If you have problems or questions, contact your health care provider. What can I expect after the procedure? After your procedure, it is common to have: ? Soreness or mild pain. ? Some redness and swelling. Follow these instructions at home: Excision site care ? Follow instructions from your health care provider about how to take care of your excision site. Make sure you: ? Wash your hands with soap and water for at least 20 seconds before and after you change your bandage (dressing). If soap and water are not available, use hand driver salesman. ? Change your dressing as told by your health care provider. ? Leave stitches (sutures), skin glue, or adhesive strips in place. These skin closures may need to stay in place for 2 weeks or longer. If adhesive strip edges start to loosen and curl up, you may trim the loose edges. Do not remove adhesive strips completely unless your health care provider tells you to do that. ? Check the excision area every day for signs of infection. Watch for: ? More redness, swelling, or pain. ? Fluid or blood. ? Warmth. ? Pus or a bad smell. ? Keep the site clean, dry, and protected for at least 48 hours. ? For bleeding, apply gentle but firm pressure to the area using a folded towel for 20 minutes. ? Do not take baths, swim, or use a hot tub until your health care provider approves. Ask your health care provider if you may take showers. You may only be allowed to take sponge baths. General instructions ? Take pdhl-vnt-xzitbok and prescription medicines only as told by your health care provider. ? Follow instructions from your health care provider about how to minimize scarring. Scarring should lessen over time. ? Avoid sun exposure until the area has healed. Use sunscreen to protect the area from the sun after it has healed. ? Avoid high-impact exercise and activities until the sutures are removed or the area heals. ? Keep all follow-up visits. This is important. Contact a health care provider if: ? You have more redness, swelling, or pain around your excision site. ? You have fluid or blood coming from your excision site. ? Your excision site feels warm to the touch. ? You have pus or a bad smell coming from your excision site. ? You have a fever. ? You have pain that does not improve in 2?3 days after your procedure. Get help right away if: ? You have bleeding that does not stop with pressure or a dressing. ? Your wound opens up. Summary ? Take sytg-sgs-nxjvoag and prescription medicines only as told by your health care provider. ? Change your dressing as told by your health care provider. ? Contact a health care provider if you have redness, swelling, pain, or other signs of infection around your excision site. ? Keep all follow-up visits. This is important. This information is not intended to replace advice given to you by your health care provider. Make sure you discuss any questions you have with your health care provider. Document Revised: 04/28/2022 Document Reviewed: 04/28/2022 [employer] Patient Education ? 2022 [employer] [facility] Pre-Certification Formon Pre-Certification Form [id number]#1 .[id number]:127 [facility] Consent for Procedure/Surger yon 01-19-2023 Consent for Procedure/Surgery [id number] 7#1.00CD:127 [facility] Consent for Procedure/Surger yon 01-13-2023 Consent for Procedure/Surgery [id number] 1#1.00CD:127 [facility] General Surgery Office/Clini c Noteon 01-12-2023 General Surgery Office/Clinic Note HPI Staff Darwin is an 82 y.o. female here for 1 week follow up. She is accompanied by son in law. I/O I/D left breast due to abscess done 01/04/2023 Mammogram was not completed. Patient decided not to have done. History of Present Illness Darwin Heart is an 82-year-old female status post I & D of an infected left breast epidermal cyst. She has been doing well since the procedure. Her son-in-law is with her here today and he was able to clarify for us. The patient in fact does not have a history of breast cancer, but of a breast biopsy on the left side for which she did undergo a surgery and it was then found to have benign findings. Review of Systems Constitutional: no fever, no sweats, no weight loss. Eyes: no glasses, no blurred vision, no visual loss. ENMT: no dentures, no hoarseness, no swallowing difficulties, no hearing loss, no ear infection (s), no nose bleeds. Cardiovascular: normal blood pressure, no chest pain, regular heartbeat, no heart murmur. Respiratory: no shortness of breath, no cough, no asthma, no wheezing. Gastrointestinal: no nausea, no vomiting, no diarrhea, no constipation, no blood in stool, no change in bowel habits, no abdominal pain, no hepatitis. Genitourinary: no kidney stones, no urine infection, no difficulty passing urine. Musculoskeletal: no pain, no weakness. Skin: no changing moles, no rash, no skin lumps. Neurologic: no seizures, no epilepsy, no headache. Psychiatric: no emotional, no psychiatric problem. Endocrine: no thyroid, no diabetes. Heme/Lymph: no bleeding problems, no anemia, no blood clots, no transfusions. Allergy/Immunologic: no swollen lymph nodes/glands, no IV drug abuse. Other: Physical Exam Vitals & Measurements HR: 71(Peripheral) BP: 158/81 SpO2: 98% HT: 57 in HT: 146 cm WT: 69 kg WT: 151.8 lb BMI: 32.37 General: No acute distress Respiratory: Unlabored breathing on room air Cardiac: Regular rate and rhythm Abdomen: Soft nontender nondistended Breast: The epidermal cyst I & D site is healed. There is still a cyst underneath with some sebaceous fluid that is able to be expressed. Assessment/Plan Darwin Heart is an 82-year-old female on Eliquis with left breast sebaceous cyst. 1. Epidermal cyst (L72.0: Epidermal cyst) We will remove under local anesthetic. She will have to hold her Eliquis for 2 days prior to the procedure. 2. On apixaban therapy (Z79.01: senior living (current) use of anticoagulants) 3. BMI 33.0-33.9,adult (Z68.33: Body mass index [BMI] 33.0-33.9, adult) ATTESTATION: Documentation services were performed after patient or guardian consented to allow [employer] to record this visit. SILVER health insurance specialist and provider reviewed before signing. SILVER: Alaina Sams. Follow-up No qualifying data available Patient Education Obesity, Adult Problem List/Past Medical History Ongoing Acute post-operative pain BMI 33.0-33.9,adult Carpal tunnel syndrome Closed fracture of left femur Difficulty walking up stairs Epidermal cyst HTN - Hypertension Left breast abscess Mixed hyperlipidemia On apixaban therapy Post-traumatic subdural hematoma Historical AAA - Abdominal aortic aneurysm Anxiety Atrial fibrillation Jeremias's deformity Venous insufficiency of lower extemity Procedure/Surgical History Hip arthroplasty (07/06/2019), right carpal tunnel release (02/19/2014), BONE SPURS FOOT (03/22/2004), AAA repair, achilles tendeon repair, Colonoscopy, EXCISION CYST OF LEG, History of artificial heart valve.., Knee replacement, open heart, pig valve, REMOVAL CYST ON HAND. Medications amitriptyline 25 mg Tab, Oral, Once a day (at bedtime) amLODIPine 10 mg Tab, 10 mg= 1 tab(s), Oral, Daily aspirin 81 mg oral tablet, 81 mg= 1 tab(s), Oral, Daily atorvastatin 40 mg Tab, 40 mg= 1 tab(s), Oral, Once a day (at bedtime) atorvastatin 40 mg Tab, 40 mg= 1 tab(s), Oral, Bedtime cephalexin 500 mg Cap, 500 mg= 1 cap(s), Oral, QID cephalexin 500 mg Cap, 500 mg= 1 cap(s), Oral, QID Eliquis 5 mg oral tablet fluticasone 0.05 mg/inh Nasal [place], 2 spray(s), Nasal, Daily furosemide 40 mg Tab, 40 mg= 1 tab(s), Oral, Daily Keflex 500 mg Cap, 500 mg= 1 cap(s), Oral, TID lisinopril 20 mg Tab, 20 mg= 1 tab(s), Oral, Daily Metoprolol tartrate 50 mg Tab, 50 mg= 1 tab(s), Oral, BID Restasis ophthalmic, 1 drop(s), Eye-Both, q12hr Tylenol 325 mg Tab, 650 mg= 2 tab(s), Oral, q4hr, PRN Vitamin C 500 mg Tab, 500 mg= 1 tab(s), Oral, BIDWM, Self Directed Vitamin D2 50,000 intl units (1.25 mg) oral capsule, Oral, Daily Allergies traMADol (Hallucinations) Percocet 5/325 (paranoid and hauucinated) Ultram (Confusion) ampicillin ([place]) dicyclomine (Unknown) erythromycin ([place]) Social History Alcohol - Denies Alcohol Use, 06/04/2011 Alcohol use interferes with work or home: No., 08/20/2018 Substance Abuse - Denies Substance Abuse, 06/04/2011 IV drug use: No., 08/20/2018 Tobacco - Denies (more content not included)... [facility] Comment on above: Result Comment: Elec tronically Signed By: Paul Gomez MD\.br\Date and Time Signed: 01/12/23 08:11 EDT\.br\Electronically Co-Signed By: Alaina Calixto\.br\Date and Time Co-Signed: 01/11/23 14:32 EDT Patient Educationon 01-12-20 Patient Education Gastroenterology Obesity, Adult Obesity is the condition of having too much total body fat. Being overweight or obese means that your weight is greater than what is considered healthy for your body size. Obesity is determined by a measurement called BMI. BMI is an estimate of body fat and is calculated from height and weight. For adults, a BMI of 30 or higher is considered obese. Obesity can lead to other health concerns and major illnesses, including: ? Stroke. ? Coronary artery disease (CAD). ? Type 2 diabetes. ? Some types of cancer, including cancers of the colon, breast, uterus, and gallbladder. ? Osteoarthritis. ? High blood pressure (hypertension). ? High cholesterol. ? Sleep apnea. ? Gallbladder stones. ? Infertility problems. What are the causes? Common causes of this condition include: ? Eating daily meals that are high in calories, sugar, and fat. ? Being born with genes that may make you more likely to become obese. ? Having a medical condition that causes obesity, including: ? Hypothyroidism. ? Polycystic ovarian syndrome (PCOS). ? Binge-eating disorder. ? Yanira syndrome. ? Taking certain medicines, such as steroids, antidepressants, and seizure medicines. ? Not being physically active (sedentary lifestyle). ? Not getting enough sleep. ? Drinking high amounts of sugar-sweetened beverages, such as soft drinks. What increases the risk? The following factors may make you more likely to develop this condition: ? Having a family history of obesity. ? Being a woman of descent. ? Being a man of descent. ? Living in an area with limited access to: ? [place], recreation centers, or sidewalks. ? Healthy food choices, such as grocery stores and [employer]. What are the signs or symptoms? The main sign of this condition is having too much body fat. How is this diagnosed? This condition is diagnosed based on: ? Your BMI. If you are an adult with a BMI of 30 or higher, you are considered obese. ? Your waist circumference. This measures the distance around your waistline. ? Your skinfold thickness. Your health care provider may gently pinch a fold of your skin and measure it. You may have other tests to check for underlying conditions. How is this treated? Treatment for this condition often includes changing your lifestyle. Treatment may include some or all of the following: ? Dietary changes. This may include developing a healthy meal plan. ? Regular physical activity. This may include activity that causes your heart to beat faster (aerobic exercise) and strength training. Work with your health care provider to design an exercise program that works for you. ? Medicine to help you lose weight if you are unable to lose 1 pound a week after 6 weeks of healthy eating and more physical activity. ? Treating conditions that cause the obesity (underlying conditions). ? Surgery. Surgical options may include gastric banding and gastric bypass. Surgery may be done if: ? Other treatments have not helped to improve your condition. ? You have a BMI of 40 or higher. ? You have life-threatening health problems related to obesity. Follow these instructions at home: Eating and drinking ? Follow recommendations from your health care provider about what you eat and drink. Your health care provider may advise you to: ? Limit fast food, sweets, and processed snack foods. ? Choose low-fat options, such as low-fat milk instead of whole milk. ? Eat 5 or more servings of fruits or vegetables every day. ? Eat at home more often. This gives you more control over what you eat. ? Choose healthy foods when you eat out. ? Learn to read food labels. This will help you understand how much food is considered 1 serving. ? Learn what a healthy serving size is. ? Keep low-fat snacks available. ? Limit sugary drinks, such as soda, fruit juice, sweetened iced tea, and flavored milk. ? Drink enough water to keep your urine pale yellow. ? Do not follow a fad diet. Fad diets can be unhealthy and even dangerous. Physical activity ? Exercise regularly, as told by your health care provider. ? Most adults should get up to 150 minutes of moderate-intensity exercise every week. ? Ask your health care provider what types of exercise are safe for you and how often you should exercise. ? Warm up and stretch before being active. ? Cool down and stretch after being active. ? Rest between periods of activity. Lifestyle ? Work with your health care provider and a dietitian to set a weight-loss goal that is healthy and reasonable for you. ? Limit your screen time. ? Find ways to reward yourself that do not involve food. ? Do not drink alcohol if: ? Your health care provider tells you not to drink. ? You are , may be , or are planning to become . ? If you drink alcohol: ? Limit how much you use to: ? 0?1 drink (more content not included)... [facility] Coding Summary.on 01-09-2023 Coding Summary. [id number] Ww+PGhlYWQ+UW5UUYHpJ 41eeREstZ3uX8GSCLjCB ywgQVBQTElOSyIgbmFtZ Q4vyCBrMTBz IC8+JI9cLTCbYxycwCXa m8Y0oAN6X53jxi2nICnl nWS1OXNxMxPyyauoy3fl nVe0QRtwGfctMoTf VJXhkQ20MKT2gP26Kv71 cTYqoNPbx1kbkNq6MlAp IGEeFLF8eLmyIFxms8Cn SETeO54hfNMtz6M6 IGNvbGxhcHNlOyBlbXB0 rX7fEGsczukgh5dhsxiv Qud8qz47jBQgh1J3oJI8 F9CccrQ0KPGpaEYk HqxkwIDAkJ3zyxunc4sq drwtGkBiJMOeQMn5CVj2 HAJlrEshEdIhKB45JXF7 KDIfmjBaH4MdDIZa kFkwDmF4z5M6Fa5BF2KT IrvqA7CSFAPLEQjlsBP+ FG20xy41Y2OhPhqxDga1 PAIoMXF6fLG0qY1a WWUsYBlya8O8nAS6X2Bx egSiqo9pi5hyIZFcYNpj O94wkZHkj1G7USJfbNU1 ICJqiJgmKhEwtD13 Oyc+CPJldGjji0HvWzjm a3bdn0xwnGo3ZwoyGMCm ojFedGqsBDN3v0PeFn5e RLEnhKP2oEI1sE4b XuCtVwA1SPdjY463FgJz fTAhZlqiM25lS0XlrPL+ SFIfWxk6AFQhzIowVP5p C4FjLLYmlzulwHGo jMnwGA2wAOPbtrwkQPMm tB2kMCHzV7m9DyZxBtC1 AXqpR8XpOFWgagloWu26 rU2hRtVwQkM0CMkf K9SeinI1IVMutPRpYVfl VVG6K20nc9S0UBQtNXPr ZPT3nAA8qM8suSrzhdon bGVmdDsgdmVydGlj DNaxLRlwC513UIPlkNme PkNvZGluZyBEYXRlOiAg MDQvMDEvMjAyMzwvdGQ+ FLSpASS1bEiyUFGb eRGeGKsjIn1wnQcmjWxu ZY4eUGLurvvtGUHenQ4k LTYbeOEvdDqhIV4aEGBi zangr619TvNxNEC3 VRAvqDYcB9PdcR1fPhMx TZSdOSSlK0MpjQSeTHga S760WWbfRcO3VWHgdvHi Q1JeZMEgrTgjNfQ1 d0J2Pp6Nw7QasvtvY1Rr rROyOcZxTfcnHOb1B0Cg PjwvdHI+AZ31DIYnDL76 QPj2EEQ4dBglRDmd PREnR8WjtA6eRpNmRVEg ZGRkOyc+PHRhYmxlIHdp ZHRoPScxMDAlJyBzdHls QC4eVq0zKIChYKCg iYdsfGAqFsHtp8qxUGMs IQbuAM6ktEwiX2GyyYS6 XPPvf2p5Yx95F51vR9Ox dXA+VTNpcRN0wQR3 dS1vSjWwCdS6DGneQ137 DnXyjTLgAcdrh9try7wz bSv4CfZ0OUFzblPqlVrr IAZ0w2LkEd39K98m IHdpZHRoPSIxNSUiIHZh nThywk9yqU3gIn6+PGNv sAO7uSP6cB1mPdUtOgL7 SRuxO459UqAapNWj Vqbuy5hmw8gnsBp0CpLn ZEVyayOqcGchULB9d4Mv Hf97D1OxvPjdh9VpGyf1 yh49vMVlz2A3fAR9 K4KsXFPmletotBOlrWri PM6kBBCyjokuUNDjnO2l VGYaO1j5EiIrKpJ3CCno N9QcbyV5XFEthOEw HGPemPSUzH6gfofvu9pd cobpKuChFVXiJHw0QTa6 TOVpzOzwWlUqNTP1PlI3 JOF1zJLbyX1zfBxq wfzbaB0aNhf+TXM8yCMv lZLCRG7tRrtlmER+PHRk NQI0oMfkASykBAUnhS7s VOAdO2t8YbVuZpB7 MWwwE6ZjjyA3FBLaeKBm ZONiiPHYdD8adbron5en bthdBzHeQVKyECe5HIq2 LWFsaWduOiBsZWZ0 IlJ4NVN3wOIpxD9ljTwr tajzuA8vSnm+QmlydGgg VWU6AYb3W4YkCoq3GIOy fUlmWQ0vuVZfCRsr Dq3zoJjgpTucRN0vGOIu fquzf737RxAhq1boBTYk uODwOIywFUL8O02oj6O7 MAGkRQGmCJQ9lHL1 cO5mzGgmzqgarQDtvCrz cgXgyYhvCDhqVRgcR444 FDYsdQgdOmOmYSy5V4Yu Fsn0YHMkkPfzRL6i aQSlJDhoSn6juQeleSyw SJ0eKHZiqgbta758QnOo o8kgTVEdyWJzRZvoUNZ9 Y69fu7N6XZWxMNHs LMJ5rDX8cM4kbKwsnuvj bGVmdDsgdmVydGljYWwt OJreQ863PGXshZolYlIa aSb5A0YyKsb9DCRt rDdoAT2ypHTvQQkvTr3m xHkmnWxsYR8kEBHrewst z206YdMbq6hsHYEtcQQj RPicUII5A66vb3U7 LENjXYByPJT8sER5uB0r bGlnbjogbGVmdDsgdmVy cIlvAIzqOOxmW631QOXj cDsnPlBhdGllbnQg FLvlKDi4X8FoUyjpfSJ+ FK67QBJsEQ11wHTnsVNo l5hrzBm5DnHpXNPiABJ8 kGkxGDmln3BlNXUs X37bhOVdt6U8BSHviGnm vSIxMnWyiFU8eM9kNPgd mlxdb4hbaxvrCfget5fx dz93gR89L87eICji ZHRoPSIzMCUiIHZhbGln zc2xlL7pYh9+PGNvbCB3 lYQ5kS7uDIDlMlK2RYao R929TgJxvIQaOexw v8ceq2owoZq1JdI2HYRf raAgoYtjOGC9i4UxQm48 D40qANbrFVSzHCZyECGc ALVpzHnnkc3wgA9u Ii8+OOFrkVT7uNK6rA3f VrAjSvF8GZafX437OxGx tFAeVowoM30uR8DmpIW+ HSDpFlo5HTWhmQxo IV3krGSmSLkgZl9tVWX1 WdDoQwNvHTylJ8HcEJTu dixccfidfZG2IGJrJROg pG88Vy5wvBljZLSw fACRyX5xsxujh3vkugsm KqLrPFJqKSl1OPi0NACv eZodOtCfNSO9HtX8YCO4 zAEsoP8bgQugceuh vS4dV9EzDSRfmjpvIo73 nK2sYkAhPqG3GPfsYfl+ K21IJLjLYSLFOMEHMPHJ IPT8Q5EtArq5STWm tIcnDM6trSSjAUhmEp3x jNktyQewRB2cRIDsecal CSAgqR1jSDGsiVNxcQhs BI6uRANmydvqn901 HbGpAXN4NHAurHOkP7Sb kJ8pSeDzEOPjKIZiQ7Af lOJpHUcaS129GAlfHnH5 VJFctrQjY6IpUBXa kPmgFoP2j8Q6Sz5jXI5u Yc3tEGTnXS12SO55rFYc m1E2sZT2C0WbJAOhozzr kzlvvGZ6EYVlBSFe aH26yHTnTPavHg5tm9M0 x308QSTcJTBkaB36Lx6q sZfqRCEpjTXJeQ1cwssh s8irpgxlQbNfWXTr NLp8JHm7SZKdxAdrLxBm ACI7OdX4WPG8zSNhaK6v tIxcsxsqlW4uVvn+ODAg KYNqutO3U7DhTns6 MNUhvKdxXS2tfVCzUCzc Qk5jjPdhqZxqJX6eXLXg awdiQKGeqS8dKECzoKTw rPdeOX3cEPFxncqu h815SiJxQAY9ISTcoVIh R8GyfB7lGpOjRFXxTTMt G2XjqQJvHUtbG805ZOhn OxH1JJSfdfZvL8Ih SHGkiRfsYeP5b6J7Yd9X RP3wtIR9T1HwBsd4DVRv yUyrRL7dnRHdUTaxKu8k sPauaAcuCV3dTTSb qirqROLllZ1vIGOfzKRx aZbuDQ3zZMQbftuey994 CwWhQTQ5GFPgqYBkM1Ss vH0eRiXbXCYhFYRi D9PfrNXwALdnA924LLji OdZ2UOXdiiPtZ4WyMBEm dJycIbM7n5I7Mb2BPFDd YWZqyGNwZwQ6Q0Cw PjwvdHI+YN23KLPuKF69 aYXadQTcf3rxuIp1OdCv UKBnEJC7iTawDEqvi3Yr YBIdB18bnBOiv5C9 IGNvbGxhcHNlOyBlbXB0 gD1qCFsaswziu4ctvhhu Trrmx9ovqd75sA78V20q IHdpZHRoPSIzMCUi OABxkHuyhh3vsP2dNn5+ DSVvaFI1uEP1cQ7tDbZg GuK6URcfW136UwIboOLx Uwagq7jta0yjnWq9 IjIwJSIgdmFsaWduPSJ0 d0IcLa73F91jHBfwBELi ZTAfKYKpYWUlgHdxee9x nA3eNu2+OB0ij9id ar92pA48lYM+PHRkIHN0 fWydMCxqOTZafI0rGEgy SrJ7ZROlEyMnvI36wBQq FAbxSc2kqSzfiErn QJ5jBTFbubrhy503NsSu v4jgXJYzbSNeETlnSMR7 U31di6R9DLCsZUFaAVF4 aWL3iE2rhJzvjerm bGVmdDsgdmVydGljYWwt ZBnqZ939RNLylIqlRnDr gUDtP8reccEHPC6pTehl dGQ+ESYdMNB6rEjn BRcnUJVqnB3hHJExZ2d8 RuUtSmG1EHilS1NeaaT7 XATyvQHxAIAvpODVgI8i ccvwt1blxwfxLeHh GWNpOJh1YQr4DKAlzAjv TpYzGSI3FgX2RMV5nOCk aT3wkBbomxxphO0cIqr+ RklOOjwvdGQ+PHRk PYG8lMfnNOssGMQnfN5i QWHwV9b4BaJxVgY4QWcw U4SydmW6HMJacXShEUDh dLVGpO2foacxi2ir pqfiRuUzCQSnSJx5OEs0 IUVswWyrXeArYRA1NyA0 BPH8vIAfnS3uzNdgbmfl vA0vHde+TVJOOjwv dGQ+RDRwVXE7nWjiHQyv ELMquE2qHWRsN7p2RbHt OvN4TVqvY6EwdtY0YSGv qYWfFJHwoKJUyZ0r zbzoy4hiwjvbWmVkYILi FKq9QEk4DJWzrJafJoNi ULY3ZhD3LJA0mNCdeU2p aGlqjitxyW1tYon+ UBG4VMK7VV05NE45A2Xh PjwvdGFibGU+PHRhYmxl IHdpZHRoPScxMDAlJyBz tQvdQU7aXk8xENWt LWNvbGxh (more content not included)... 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 She noticed the infected area around two weeks ago The area is mildly painful S/P sternotomy 5-6 years prior History of Present Illness Darwin Heart is an 82-year-old female who was referred to us for evaluation of a breast abscess. She currently takes Eliquis. She was seen in the emergency room on 12/28/2022 for a 2 cm mass at the 10 o'clock position of her left breast. The patient is concerned because the mass is close to a previous sternotomy she had 6 years ago for prior open heart surgery. The emergency department found the mass to be most consistent with an abscess; however, because the patient was on Eliquis, they chose not to perform an I & D and just referred her to Dr. Cole. She is here to see us instead. Per review of Dr. Cole's notes from when she had seen the patient in 2018, the patient had a CABG with aortic valve replacement in 2014, knee replacement in 2015, and EVLT distal right great saphenous vein phlebectomy performed on 03/04/2017. Her medical history included at the time aortic stenosis, coronary artery disease, anxiety, and paroxysmal atrial fibrillation. The patient first noticed the abscess growing gradually in the left upper inner quadrant of the breast 2 weeks ago and has gradually increased in size until it formed ahead and began to drain spontaneously on its own and has improved in size since then. Of note, the patient does have a history of breast cancer with a lumpectomy performed at [facility] performed 25 years ago. The patient was supposed to follow up for radiation therapy, though did not do that nor she has had a mammogram at that time nor has she seen a radiation oncologist or a surgeon for this issue in 25 years. Since being diagnosed with breast cancer and undergoing her lumpectomy, she has noticed no other changes to the breast since then. Review of Systems PHQ Score Initial Depression Screen Score: 0 Constitutional: no fever, no sweats, no weight loss. Eyes: no glasses, no blurred vision, no visual loss. ENMT: no dentures, no hoarseness, no swallowing difficulties, no hearing loss, no ear infection (s), no nose bleeds. Cardiovascular: normal blood pressure, no chest pain, regular heartbeat, no heart murmur. Respiratory: no shortness of breath, no cough, no asthma, no wheezing. Gastrointestinal: no nausea, no vomiting, no diarrhea, no constipation, no blood in stool, no change in bowel habits, no abdominal pain, no hepatitis. Genitourinary: no kidney stones, no urine infection, no difficulty passing urine. Musculoskeletal: no pain, no weakness. Skin: no changing moles, no rash, no skin lumps. Neurologic: no seizures, no epilepsy, no headache. Psychiatric: no emotional, no psychiatric problem. Endocrine: no thyroid, no diabetes. Heme/Lymph: no bleeding problems, no anemia, no blood clots, no transfusions. Allergy/Immunologic: no swollen lymph nodes/glands, no IV drug abuse. Other: Additional ROS info: Except as noted in the above Review of Systems and in the History of Present Illness, all other systems have been reviewed and are negative or noncontributory. Physical Exam Vitals & Measurements HR: 69(Peripheral) BP: 147/78 SpO2: 97% HT: 57 in HT: 146 cm WT: 69 kg WT: 151.8 lb BMI: 32.37 Vitals & Measurements General: No acute distress Respiratory: Unlabored breathing on room air Cardiac: Regular rate and rhythm Abdomen: Soft nontender nondistended Breast: There is a 2 cm abscess in the left upper inner breast. Otherwise, left breast and axillary exam are normal. Right breast and axillary exam are normal. Procedure An I&D was performed. After obtaining informed consent, the patient was positioned supine on the procedure room table. The left upper inner breast was prepped and draped in a sterile fashion. Skin over the abscess was anesthetized using 1 percent lidocaine. An incision was made in octal shape and expressing a large amount of purulent fluid as well as infected sebum. The wound was irrigated thoroughly till after returned clear. Packing was placed with quarter inch iodoform packing and a clean dressing was applied. The patient tolerated the procedure without difficulty. Assessment/Plan [facility] is an 82-year-old female with history of left breast cancer status post lumpectomy 25 years ago with no radiation therapy and what sounds like no follow-up whatsoever for her breast cancer. 1. Left breast abscess (N61.1: Abscess of the breast and nipple) The patient will follow up with us in 1 week for a wound check. We will also obtain a bilateral diagnostic mammogram of both breasts for further evaluation and attempt to obtain records from [facility]. 2. (more content not included)... [facility] Comment on above: Result Comment: Elec tronically Signed By: Patricia GUILLEN, Paul Walker\.br\Date and Time Signed: 01/04/23 14:16 EDT\.br\Electronically Co-Signed By: Alaina Calixto\.br\Date and Time Co-Signed: 01/04/23 12:09 EDT Coding Summary.on 12-30-2022 Coding Summary. CD:[id number] Ww+PGhlYWQ+LH2ENOYvV 98tcSFblP5kO9SRBLkHE ywgQVBQTElOSyIgbmFtZ K1gmOIjTNGf IC8+IL2tOYLrOvrciNPj u1S0sWJ8R70kue6uCWfm uXH1SSWlCqRertajb7lb cBj8WBnqJsyvAuJt DNIfhD75XHO1xC47Ph65 jNVekGEdf2ivuQr3IhTk EQRoOAX2bSswTSver7Fi FBSrF09heEGga0L2 IGNvbGxhcHNlOyBlbXB0 rK3xMWppedvsx2xngwxh Zvw2bb46dUErb2D1zNT0 B1CqjrP5YUMigUCi UzmliPVMgB4biywhs2em erwfTeCdAWIpGQg2KDu2 RSXcuDgoMbYuVG38KIO7 ZWUvlkOpG3LxGOIg iXllPnU8m8I2Ri9UZ6WH FpqeT0EPDONEFCpmtSI+ GB13ee89B3TdTrziXoj8 TENeSFJ7uIO2wN3k JDLfZTkss1T7uPM3T3Yr vbPcel5aq5pqPDGgRNap N94deQNxp8U5HTOtwJY3 BOInaDwpDuCkqD16 Oyc+BPQrbOicg1AwDydl i7edb9eeyOe7JdkeSLSg lcIoeAfwPSN9f2VbCo9x WMHeuTO0ePB1gP5l XcNiOnJ3WNvoK187ZjNp lUBkWyycR42mC7KdgZV+ KZJmEaq6WYVuyYgnWV1d P0ZvZFLircpcePCa kXvqPR4aSDZyxqsjCRKl oR1oEDUoZ7f9DmDyUxP2 EVedR3GaXJBbpxhmZf66 yH3oRiTjEiI9SGlo E7SeoaM2XRWrxNViSHxp ZCZ9C81sj5X0YUEwXFVk QFY1lAB7iK9lqWeanpuo bGVmdDsgdmVydGlj TGpyAAiyH607SBSwzPor PkNvZGluZyBEYXRlOiAg MDMvMjIvMjAyMzwvdGQ+ GMHyHNE5fXweIOLz vGYjUNidDd0cxCtkeIdc XC2eYOIgdjxtJOBopS8v MSQwjAHypZfxWY5yIKYk vfssc993UkZvCAV9 UDHuwBVdD1PezH8tDqNq HXVaDWAsW7IqtVZaZSnu V514CUrwRiG6EZXuqoVy O7QyVOPnmXpiWrC4 t0O5Dv7Ky1SrilqgL3Vb tGPqKmGfUxltXSf3G5Yf PjwvdHI+CB76KJWyES51 AVn5NDF0pAopIJeu MYXbI5LirG2qCbJcHDYx ZGRkOyc+PHRhYmxlIHdp ZHRoPScxMDAlJyBzdHls XT6iGj3hVYAwOAXe tWytdSCgLkRcb6olRALa HEsaKT8bhFxkB8LueVM4 KEXou7a2Vg84U46kY0Xv dXA+ITUjsRW7yTH1 oE5jMtCeVdN0ARzjR034 XxHolQDdShmsq6bqa1th jSc8RnM3CWEhxvVvnCrv GBL8m1VwSd60R92a IHdpZHRoPSIxNSUiIHZh mXbotz6qiK9yPs2+PGNv pPQ3oDQ3aN3zCaVqUiT6 GVtrD192YbFadMUq Ovtoo7lps2mcvBf0VeYl VLTuzoLiuPyqLJY7t1Ho Yx60O5QvrJbqb9HkErd9 oo86fHVil6J5oYC5 N8DaWROkbinfjVKngCdu ND8lJSLysxgcCZFhiR3n SSVhT3i2JzBzGwO5NRov X3FhisX6IRHhtQPy PGChhVOReP2pwbvwa9wq eqrdVoSwJRHsMCy1GXh9 JKFioAymSaXyXGC4MsQ5 HGW4nIGvqJ0mhTra coethX3rHtc+JXU1vDJz mZYQOI9mHiigkIW+PHRk NEN6lFzpLNeiNGKosR5h SWLuR8u7EtIfIuL9 BQjsG0EprkB4YEIihPXx IPSuwOOGoR9vykgsh0ro kegwTdJwHWZbIGl5XQx5 LWFsaWduOiBsZWZ0 EjL6XZP5pEBbiB2mxCen konnrB3mBds+QmlydGgg EEL3PPg5O8ZmUdb0ZBRu vEkbZR0vpJTrDRak Si7ecMnvuTotKP9kKNLv kdjoz638LaGvq3guQGEd kZNtSBzcCFV8U07lb2R3 DEYqYWSuWYM6fOY4 kW2ckCncdwoclJJqtCvy brZklWljTOcwXNnxK226 IVKaqRxfNiQkLRp0A5Si Pmr7DHRdqRqyUU2x tEYpWMalWs6lqYltwUqq IJ1uBOVfnplxs305QxJq d7evHTIudCWfRWejKMN2 L53td1M9LWFsMQJs YXC7iJI2jV5qhUrrrxww bGVmdDsgdmVydGljYWwt POkpT353HLDjzTeePsGc lCd6J1JvUvo7ZJIc yAblGX9hsSLtYOrgHr8x xXrgyGxvWQ6gBEQjaqwi a010WxFsu2ufIZPkcGRo JUqiSWC4R85kw7E5 MHWnDUNpBTU6rEZ7xK1q bGlnbjogbGVmdDsgdmVy iPdcROpvEPxzY215PHBn cDsnPlBhdGllbnQg IJmxULe9F5EfEhaydXB+ HM37KQJmUQ56mHHcfCXh g2aetRg2CrMqBIEmZQV3 pHtgWPzma8HyAIIy P02rpKPzg4F2HFMcxIjb nSCxGwZvmHM2wQ6eXHmy czwtg8pyttqgLfont3xq sp08xY50O29fYLpi ZHRoPSIzMCUiIHZhbGln he5aoN5qTe0+PGNvbCB3 rKC2wV5jWPNoRhD8XBwd D845LvXctVRhCyul w0qxz7hehXd0FaX7FYRk ipYddZwfRXY0c7TeJc04 X22zKXmoVAEnSUWvMDRl YEBhtOytdl1vnK5r Ii8+BYTsqYM0tPE2pG2t LtBrHqL0BFxpW457GaTq jXGqWevdS69qY2YdiBT+ FULfQdv5QMOctYvp IL0jxWSrZHaeBb8jUHQ3 HmGxTtUfRAxkV5RxJJTw vvzfdeoiiWQ3MPAlLYWa yG26Ws3kaWmxJWRe tCJJuT7xgepvd9nmjcmu IlJdATJcWTj8URr7SCXm eWcyTwTfAQQ8XiS9UBL2 qYAndK7qxPgblmda wQ8cM9PyOIHchkyzGc77 cP9lUdPpVdG1YKyrPxu+ R54TSFkKSVGJZDEOWPPT KLW5T5NuUpc2WUMn fCpjKS7umLJaKJkkIx8s tJjwfLwcGP3zBCNlvwlq KFVwhO1sRUQtiRSjxXmy GA6uSAJfajqnp386 AqRsPGE9CTTyhCKfT8Zt rN0cIiJlDQRtZXFxE1Ep tUTeQAynW692LVdqAtC3 VZFgwrYfH8PvBETp xDzeEyS5z0N0Yh4gLL7e Cv9tBCGsEO65PG60bGOw b8W3zPR5O7QmFGIjifuu asrwrHU0BLVaXEFg mI90oSWaNSrmXp9at7H2 z627RVZtEKCiaU44Aq7s iIvoZDRqfNTRaB3taiaa d0xrojcoFzHaOMUj AKt1QFl7TJEkbWeoTwIn RRO6UcL9MBD0hWTqvK6z vBlyuzolpO7gCmp+ODAg ARKqqcD7H6XaJhi3 HVDgnMifZF0jxFLvMZpm Wt1oaIcsaXyyDY7iTTGq jraiCWNpuK4pWFKhuJCb hNeuSQ5bBPKbedzz d710LbOjDBL5OREpbRQc Z6JuyH6jGzXjNBFbNGQg T5WibEHuOTuiP719DXeh TfQ6FQEanaHcO4Au QNJvmCprOnB8u6S1Ud7B EZ2ijLG1Q4LyIrh7UIBh jVbkEI2ngUJrMRosWt2p hIhgcMseEV7pZIVd leunSENmdD9sSAMveBRb tKmpCO9vVXBegmvrh217 DzViUXJ6ZNRqyMInL0Pt kT7iPdDvAUSiSGRp O5KgrCJuZHwxY590YLyo WoB8GHLfcxHdA9MuCCXn oGnlXbM5k1W9Ew4WzBRk M2ZmL5d6M8KrYenm dHI+YY96UZRhKZ09yHDy yOWex2mdzWy0GvTbHXAe OJH2dRjfHVjhu3SoRTWa C30iqTNvb5C0XJDp gKwgqUWfWnVnuWG0xD8z PTawmnlvn1yahephQudd k0atrc98yG68H10gGAdh ZHRoPSIzMCUiIHZh zHqpzg6zdL0rGc0+PGNv mVZ1oFM8aQ4bVeKpKaC3 OOekE448ZzSktGNgJlse l4oni9vypLi1DsFv JQXpldRnjLdvRHK9t2Fg Nj75F95eMWfiFIQzNDTn ZFYxWSUylHfpdv1nmM1q Ii8+FR9uh5ubju15 lI54bYC+AJGqNSQ9cOoh OYnuICCkmQ8qOUlyJmE9 RXKgFkRtbW07uXNcBMby Hi1ehRmepAffBY6t ULEdfytvg117VnIso1wx BJXduTYtXDryVOF8A08q w9D3FVHkJRRpUOW2fJL9 wW3gyQncjqvgyFLg dDsgdmVydGljYWwtYWxp J243EOVefQdaGoChnFYk K0jfwdVPKL4cUnaxgRL+ QZInBJY0hNyaCArl NQPwzB7cAJNrI2g1PkDu GbN4MXedF9PtddB9YQCa xHQpXGJawAQUkV5udpgl t5yprwtjDkOcTRZv LQf9XKh2EIZreHgrDxAr IBM4VvD8JOS2kHKwmG6u iZabeimrnY6mXdc+RklO OjwvdGQ+PHRkIHN0 xJcrHQykJTNxtA6gHXNg C5r0MlVcReE4KYqeK6Tw rfT8NSTvyLEdSHFgdYRA tM2lzlavc4abnopd WwWlMSOwNGm4VRp7XYRj sIapRtOnFFD1AfP8HEM9 oBEnxK2doOhrfuddwN9c Oyc+TVJOOjwvdGQ+ XHRlEQA0vJqpJPuwTZFx cV5rUGWjF4s5TnLwAtP8 GMetT6EpcfI5BSNajKPo PRZpyBHPqH7wixsl e9exieiwIfFvLONuJSu4 FYo6MORqoVdcLlFzIFP4 JjC3GYN1rZFqzG0dvIpu vtkawC2qLlb+UGF5 PYF7OU21JW96M7HkXbyf dGFibGU+PHRhYmxlIHdp ZHRoPScxMDAlJyBzdHls LL2rJb0lSROmNIKg bGxhcHNl (more content not included)... [facility] ED Note-Physicianon 12-30-19 ED Note-Physician Basic Information Time Seen: Rhys Chowdhury PA-C 12/28/2022 16:29 Chief Complaint pt reports hx of heart sx 5-6 years ago. in the past couple of days an abscess has appeared near incision. denies fevers of chills. History of Present Illness Patient is an 82-year-old female presents ED with complaint of a mass on her left breast. Patient reports that for the last few days she has noted that she has an erythematous, tender, roughly 2 cm mass at roughly the 10 o'clock position of her left breast. Patient is concerned because the mass is close to a previous sternotomy wound from open heart surgery about 5 to 6 years ago. Patient denies any drainage. Patient has any past history of similar mass. Patient denies any fevers or chills. Patient reports feeling overall well. Patient is on Eliquis. Review of Systems Full 10 system ROS performed. Pt denies symptoms except as noted above in the HPI. Physical Exam Vitals & Measurements T: 36.9 ?C(Oral) HR: 81(Peripheral) RR: 18 BP: 151/79 SpO2: 99% HT: 146 cm WT: 69 kg BMI: 32.37 General: Pt is in NAD, nontoxic appearing Skin: Roughly 2 cm diameter mass in L at 10 o'clock position of left breast. No obvious area of fluctuance, area is indurated, warm, erythematous. Patient also has underlying vascularity consistent with varicose veins which do not seem to be directly related to the mass. HEENT: Atraumatic, normocephalic. . Pulmonary: Breathing normally, no respiratory distress Cardiovascular: Peripheral perfusion intact Musculoskeletal: Pt has full ROM Neurological: Pt is alert and oriented. Psychiatric: Pt is cooperative, communicative, appropriately reactive Medical Decision Making Number and Complexity of Problems Differential Diagnosis: [] [facility] Data External documents reviewed: Not applicable My EKG interpretation: Not applicable My CT interpretation: Not applicable My X-ray interpretation: Not applicable My Ultrasound interpretation: Not applicable Decision rules/scores evaluated: Not applicable Discussed with: Not applicable Treatment and Disposition ED Course: Patient presents ED for evaluation of breast mass. Mass is most consistent in appearance with an abscess, however due to location of the breast, unable to rule out tumor. Patient also with surrounding vascularity which is of concern given the fact the patient is on Eliquis. Due to these factors, more comfortable referring patient to outpatient surgical referral for evaluation and treatment. Did place patient on antibiotics for possible cellulitis. Return precaution discussed. Patient discharged home. Shared decision making: As above Code status: Not addressed during this visit Assessment/Plan Breast abscess (N61.1: Abscess of the breast and nipple) Orders: cephalexin, 500 mg = 1 cap(s), Oral, QID, # 40 cap(s), Refills(s) 0, Pharmacy: [facility], 146, cm, 12/28/22 16:31:00 EDT, Height/Length Dosing, 69, kg, 12/28/22 16:31:00 EDT, Weight Dosing Disposition Plan Patient Discharge Condition Stable Discharge Disposition To home Discharge Prescription List Prescriptions cephalexin 500 mg Cap, 500 mg= 1 cap(s), Oral, QID Follow-up With When Contact Information Dae LANDAVERDE In 3 days 12/31/2022 EDT [address], [address] [facility] [address] [place] [address]- Business (1) Additional Instructions: Follow-up for evaluation and treatment of breast abscess JAVIER MARY In [address], [place] [address] [place] [address]- Business (1) Additional Instructions: Patient Education Skin Abscess Attestation Patient seen and evaluated by the physician critical care physician assistant. Attending physician was present in the emergency department and supervised care. This visit was performed by both the physician and an APC. I performed all aspects of the MDM as documented. This report was transcribed using voice recognition software. Every effort was made to ensure accuracy, however, inadvertently computerized flaking roll operator mistakes may be present. Appropriate healthcare PPE was used in evaluating this patient. The patient was placed in a mask. The healthcare provider was wearing mask, gloves, and utilizing proper hand hygiene. All equipment was properly cleansed Problem List/Past Medical History Ongoing Acute post-operative pain Carpal tunnel syndrome Closed fracture of left femur Difficulty walking up stairs HTN - Hypertension Mixed hyperlipidemia Post-traumatic subdural hematoma Historical AAA - Abdominal aortic aneurysm Anxiety Atrial fibrillation Jeremias's deformity Venous insufficiency of lower extemity Procedure/Surgical History Hip arthroplasty (07/06/2019), right carpal tunnel release (02/19/2014), BONE SPURS FOOT (03/22/2004), AAA repair, achilles tendeon repair, Colonoscopy, EXCISION CYST OF LEG, History of artificial heart valve.., Knee replacement, open heart, pig valve, REMOVAL CYST ON HAND. Medications Inpatient No active inpatient medica (more content not included)... [facility] Comment on above: Result Comment: Elec tronically Signed By: Rhys Chowdhury PA-C\.br\Date and Time Signed: 12/28/22 16:48 EDT\.br\Electronically Co-Signed By: Paul Teixeira DO\.br\Date and Time Co-Signed: 12/29/22 07:13 EDT Consent for Treatmenton 12-10 Consent for Treatment [id number] #1.00CD:127 [facility] Discharge Instructionson Discharge Instructions [id number]#1.00CD:127 [facility] ED Clinical Summaryon 2022 ED Clinical Summary [place] [id number] ED Clinical Summary Person Information Name: [facility]adeem Age: 82 Years : 1940 Sex: Female Language: Montserratian PCP: JAVIER MARY DO Marital Status: Phone: [phone] Visit Id: Visit Reason: Abscess - simple; BOIL ON CHEST Speciality: Acuity: 4 Enc Type: Emergency Med Service: Emergency Arrival: 12/28/2022 16:22:27 Discharge: 12/28/2022 16:50:35 LOS: 000 00:28 Checkin: 12/28/2022 16:22:27 Checkout: 12/28/2022 16:50:35 Dispo Type: Home (Routine DC) EVENTS: Event Name Event Status Request Date/Time Start Date/Time Complete Date/Time Arrive Complete 12/28/2022 16:22:27 12/28/2022 16:22:27 12/28/2022 16:22:27 Document Home Meds Request 12/28/2022 16:22:27 Triage Complete 12/28/2022 16:22:27 12/28/2022 16:31:10 12/28/2022 16:31:10 Bed Assign Complete 12/28/2022 16:24:07 12/28/2022 16:24:07 12/28/2022 16:24:07 Dr Exam Complete 12/28/2022 16:24:07 12/28/2022 16:29:05 12/28/2022 16:29:05 RN Exam Complete 12/28/2022 16:24:07 12/28/2022 16:32:11 12/28/2022 16:32:11 Registration Complete 12/28/2022 16:29:05 12/28/2022 16:32:42 12/28/2022 16:32:42 Dr Exam Complete 12/28/2022 16:29:11 12/28/2022 16:29:11 12/28/2022 16:29:11 Reg Complete Request 12/28/2022 16:32:42 Reg Bed Request Complete 12/28/2022 16:32:42 12/28/2022 16:32:42 12/28/2022 16:32:42 Discharge Complete 12/28/2022 16:44:59 12/28/2022 16:50:39 12/28/2022 16:50:39 Transfer Complete 12/28/2022 16:50:39 12/28/2022 16:50:39 12/28/2022 16:50:39 ADDRESS: [address] [place] [address] [address] [place] [id number] [facility] DOC NOTES: MEDICAL INFORMATION: Prescriptions Given: Medications to Continue Taking That Have Changed [facility], [address] [facility] [place] [id number], [phone] START: cephalexin (cephalexin 500 mg Cap) 1 Capsules By Mouth 4 times a day. Refills: 0. Other Medications START: cephalexin (cephalexin 500 mg Cap) 1 Capsules By Mouth 4 times a day. Refills: 0. START: cephalexin (Keflex 500 mg Cap) 1 Capsules By Mouth 3 times a day. Take one capsule by mouth three times a day for ten days. Refills: 0. Medications to Continue with No Changes Other Medications acetaminophen (Tylenol 325 mg Tab) 2 Tablets By Mouth every 4 hours as needed Pain/Fever. amlodipine (amLODIPine 10 mg Tab) 1 Tablets By Mouth every day. ascorbic acid (Vitamin C 500 mg Tab) 1 Tablets By Mouth twice a day (with meals). aspirin (aspirin 81 mg oral tablet) 1 Tablets By Mouth every day. atorvastatin (atorvastatin 40 mg Tab) 1 Tablets By Mouth once a day (at bedtime). atorvastatin (atorvastatin 40 mg Tab) 1 Tablets By Mouth at bedtime. cycloSPORINE ophthalmic (Restasis ophthalmic) 1 Drops Both eyes every 12 hours. docusate (Colace 100 mg Cap) 1 Capsules By Mouth 2 times a day. ergocalciferol (Vitamin D2 50,000 intl units (1.25 mg) oral capsule) By Mouth every day. ferrous sulfate (ferrous sulfate 325 mg Tab) 1 Tablets By Mouth twice a day (with meals). fluticasone nasal (fluticasone 0.05 mg/inh Nasal [place]) 2 Sprays Nasal Inhalation every day. furosemide (furosemide 40 mg Tab) 1 Tablets By Mouth every day. lisinopril (lisinopril 20 mg Tab) 1 Tablets By Mouth every day. metoprolol (Metoprolol tartrate 50 mg Tab) 1 Tablets By Mouth 2 times a day. TAKE 1 TABLET BY MOUTH TWICE DAILY. pantoprazole (Pantoprazole [address] Tab) 1 Tablets By Mouth every day. PATIENT EDUCATION INFORMATION: Instructions: Skin Abscess Follow up: With: Address: When: Dae LANDAVERDE [address] [place], [place] [address]dict [place], [facility] [address], [employer] [place] [address] [place] [address] [employer] (1) In 3 days 12/31/2022 Comments: Follow-up for evaluation and treatment of breast abscess With: Address: When: JAVIER MARY [address] [facility] [address] [place] [address] [employer] (1) In 3 days DIAGNOSIS: Breast abscess [facility] ED Patient Education Noteon 12-28-2022 ED Patient Education Note Infectious Disease Skin Abscess A skin abscess is an infected area on or under your skin that contains a collection of pus and other material. An abscess may also be called a furuncle, carbuncle, or boil. An abscess can occur in or on almost any part of your body. Some abscesses break open (rupture) on their own. Most continue to get worse unless they are treated. The infection can spread deeper into the body and eventually into your blood, which can make you feel ill. Treatment usually involves draining the abscess. What are the causes? An abscess occurs when germs, like bacteria, pass through your skin and cause an infection. This may be caused by: ? A scrape or cut on your skin. ? A puncture wound through your skin, including a needle injection or insect bite. ? Blocked oil or sweat glands. ? Blocked and infected hair follicles. ? A cyst that forms beneath your skin (sebaceous cyst) and becomes infected. What increases the risk? This condition is more likely to develop in people who: ? Have a weak body defense system (immune system). ? Have diabetes. ? Have dry and irritated skin. ? Get frequent injections or use illegal IV drugs. ? Have a foreign body in a wound, such as a splinter. ? Have problems with their lymph system or veins. What are the signs or symptoms? Symptoms of this condition include: ? A painful, firm bump under the skin. ? A bump with pus at the top. This may break through the skin and drain. Other symptoms include: ? Redness surrounding the abscess site. ? Warmth. ? Swelling of the lymph nodes (glands) near the abscess. ? Tenderness. ? A sore on the skin. How is this diagnosed? This condition may be diagnosed based on: ? A physical exam. ? Your medical history. ? A sample of pus. This may be used to find out what is causing the infection. ? Blood tests. ? Imaging tests, such as an ultrasound, CT scan, or MRI. How is this treated? A small abscess that drains on its own may not need treatment. Treatment for larger abscesses may include: ? Moist heat or heat pack applied to the area several times a day. ? A procedure to drain the abscess (incision and drainage). ? Antibiotic medicines. For a severe abscess, you may first get antibiotics through an IV and then change to antibiotics by mouth. Follow these instructions at home: Medicines ? Take nfrn-ctd-lfgftsh and prescription medicines only as told by your health care provider. ? If you were prescribed an antibiotic medicine, take it as told by your health care provider. Do not stop taking the antibiotic even if you start to feel better. Abscess care ? If you have an abscess that has not drained, apply heat to the affected area. Use the heat source that your health care provider recommends, such as a moist heat pack or a heating pad. ? Place a towel between your skin and the heat source. ? Leave the heat on for 20?30 minutes. ? Remove the heat if your skin turns bright red. This is especially important if you are unable to feel pain, heat, or cold. You may have a greater risk of getting burned. ? Follow instructions from your health care provider about how to take care of your abscess. Make sure you: ? Cover the abscess with a bandage (dressing). ? Change your dressing or gauze as told by your health care provider. ? Wash your hands with soap and water before you change the dressing or gauze. If soap and water are not available, use hand driver salesman. ? Check your abscess every day for signs of a worsening infection. Check for: ? More redness, swelling, or pain. ? More fluid or blood. ? Warmth. ? More pus or a bad smell. General instructions ? To avoid spreading the infection: ? Do not share personal care items, towels, or hot tubs with others. ? Avoid making skin contact with other people. ? Keep all follow-up visits as told by your health care provider. This is important. Contact a health care provider if you have: ? More redness, swelling, or pain around your abscess. ? More fluid or blood coming from your abscess. ? Warm skin around your abscess. ? More pus or a bad smell coming from your abscess. ? A fever. ? Muscle aches. ? Chills or a general ill feeling. Get help right away if you: ? Have severe pain. ? See red streaks on your skin spreading away from the abscess. Summary ? A skin abscess is an infected area on or under your skin that contains a collection of pus and other material. ? A small abscess that drains on its own may not need treatment. ? Treatment for larger abscesses may include having a procedure to drain the abscess and taking an antibiotic. This information is not intended to replace advice given to you by your health care provider. Make sure you discuss any questions you have with your health care provider. Document Released: 07/07/2006 Document Izzy (more content not included)... [facility] ED Patient Summaryon 023 ED Patient Summary [address] [address] Patient Discharge Instructions Person Information Name: [facility] Age: 82 Years Arrival Date: 12/28/2022 16:22:27 Discharge Diagnosis: Breast abscess Primary Care Physician: JAVIER MARY DO Provider Information Primary Provider: Paul Teixeira DO Advanced Experience Design Director:Rhys Chowdhury PA-C The exam and treatment you received in the Emergency Department were for an urgent problem and are not intended as complete care. It is important that you follow up with a doctor, nurse practitioner, or physician?s critical care physician assistant for ongoing care. If your symptoms become worse or you do not improve as expected and you are unable to reach your usual health care provider, you should return to the Emergency Department. We are available 24 hours a day. [facility] has been given the following list of patient education materials, prescriptions and follow-up instructions: Follow-up Instructions: With: Address: When: Dae LANDAVERDE [address], [facility] [address], [facility] [address] [place] [address] Business (1) In 3 days 12/31/2022 Comments: Follow-up for evaluation and treatment of breast abscess With: Address: When: JAVIER MARY [address] [place] [address] [address] [place] [address] Business (1) In 3 days In the event that this physician does not participate in your insurance network, please consult with your insurance company to find a nearby participating provider. Patient Education Materials: Skin Abscess A MESSAGE TO ALL PATIENTS REGARDING OPIOIDS PRESCRIPTION OPIOIDS: WHAT YOU NEED TO KNOW Prescription opioids can be used to help relieve oijsjvsh-ov-zpqyhm pain and are often prescribed following a surgery or injury, or for certain health conditions. These medications can be an important part of the treatment but also come with serious risks. It is important to work with your healthcare provider to make sure you are getting the safest, most effective care. WHAT ARE THE RISKS AND SIDE EFFECTS OF OPIOID USE? Prescription opioids carry serious risks of addiction and overdose, especially with prolonged use. An opioid overdose, often marked by slowed breathing, can cause sudden . The use of prescription opioids can have a number of side effects as well, even when taken as directed: ? Tolerance?meaning you might need to take more of the medication for the same pain relief ? Physical dependence?meaning you have symptoms of withdrawal when a medication is stopped ? Increased sensitivity to pain ? Constipation ? Nausea, vomiting, and dry mouth ? Sleepiness and dizziness ? Confusion ? Depression ? Low levels of testosterone that can result in lower sex drive, energy, and strength ? Itching and sweating RISKS ARE GREATER WITH: ? History of drug misuse, substance use disorder, or overdose ? Mental health conditions (such as depression or anxiety) ? Sleep apnea ? Older age (65 years and older) ? Avoid alcohol while taking prescription opioids. Also, unless specifically advised by your health care provider, medications to avoid include: ? Benzodiazepines (such as Xanax or Valium) ? Muscle relaxants (such as Soma or Flexeril) ? Hypnotics (such as Ambien or Lunesta) ? Other prescription opioids KNOW YOUR OPTIONS Talk to your health care provider about ways to manage your pain that don?t involve prescription opioids. Some of these options may actually work better and have fewer risks and side effects. Options may include: ? Pain relievers such as acetaminophen, ibuprofen, and naproxen ? Some medication that are also used for depression or seizures ? Physical therapy and exercise ? Cognitive behavioral therapy, a psychological, goal-directed approach, in which patients learn how to modify physical, behavioral, and emotional triggers of pain and stress. IF YOU ARE PRESCRIBED OPIOIDS FOR PAIN: ? Never take opioids in greater amounts or more often than prescribed. ? Follow up with your primary health care provider. o Work together to create a plan on how to manage your pain. o Talk about ways to help manage your pain that don?t involve prescription opioids. o Talk about any and all concerns and side effects. ? Help prevent misuse and abuse o Never sell or share prescription opioids. o Never use another person?s prescription opioids. ? Store prescription opioids in a secure place and out of reach of others (this may include visitors, children, friends, and family). ? Safely dispose of unused prescription opioids: Find your community drug take-back program or your pharmacy mail-back program, or flush them down the toilet, following guidance from the Food and Drug Administration (www.fda.gov/Drugs/R esourcesForYou). ? Visit www.cdc.gov/drugover dose to learn about the risks of opioids abuse and overdos (more content not included)... [facility] ED Note-Physicianon 12-12-19 ED Note-Physician Basic Information Time Seen: Marisabel PERSAUD, Nichole Carey 12/05/2022 09:20 Chief Complaint Pt hit L leg with a trash can a few days ago and has had swelling due to hitting her varicose veins. Pt c/o pain, especially with palpation. On eliquis and concerned. History of Present Illness This patient presents emergency department chief complaint of left leg pain and bruising. The patient hit her leg with the lid of a trash can. She states it did not break the skin. There was no bleeding. She just has a lump there and wants it evaluated. The patient is able to walk without any difficulty. She denies any fevers chills or sweats. She walks independently without the use of a cane or a walker. The patient is not on any blood thinners. Review of Systems Constitutional: Denies weight loss, fevers, chills, sweats, malaise Eyes: Denies visual changes, eye pain, double vision, scotomas, floaters ENT: Denies runny nose, epistaxis, sinus pain, ear pain, ringing in ears, tooth ache, sore throat, pain with swallowing Cardiovascular: Denies chest pain, shortness of breath, orthopnea, edema, palpitations, loss of consciousness, claudication Respiratory: Denies cough, sputum production, wheezing, hemoptysis, shortness of breath, dyspnea on exertion Gastrointestinal: Denies abdominal pain, unintentional weight loss, difficulty swallowing, indigestion, bloating, cramping, loss of appetite, nausea, vomiting, diarrhea, constipation, hematochezia, melena Genitourinary: Denies any incontinence of urine, dysuria, hematuria, nocturia, polyuria, hesitancy, frequency, urgency, burning Musculoskeletal: Denies joint pain, morning stiffness, joint swelling, decreased range of motion, crepitus. L leg pain, swelling Integumentary: Denies any pruritus, rashes, lesions, wounds, petechiae Neurologic: Denies any changes in sight, smell, hearing, taste, seizures, headache, paresthesia, numbness, weakness, balance disturbance Psychiatric denies any depression, change in sleep patterns, anxiety, difficulty concentrating, paranoia, anhedonia, lack of energy, marlo Hematologic/lymphati c: Denies any purpura, petechiae, excessive bleeding, bruising Physical Exam Vitals & Measurements T: 36.7 ?C(Oral) HR: 80(Peripheral) RR: 18 BP: 155/82 SpO2: 99% HT: 165 cm WT: 69 kg BMI: 25.34 Vital Signs reviewed and noted. General: Alert, no acute distress, patient resting comfortably Skin: warm, intact, no pallor noted Head: Normocephalic, atraumatic Eye: Normal conjunctiva Cardiac: Normal peripheral perfusion Respiratory: No acute distress Musculoskeletal: No deformity, full ROM. On the anterior inferior left lockwood, there is a 2 cm area of contusion. There is no lymphangitic streaking. There is no tenderness on palpation. Distal neurovascular is intact. Neurological: alert and oriented, normal sensory and motor observed. Psychiatric: Cooperative Medical Decision Making MEDICAL DECISION MAKING Number and Complexity of Problems Differential Diagnosis: DVT, contusion, infected wound MDM Data External documents reviewed: Not applicable My EKG interpretation: Noted in chart if applicable My CT interpretation: Noted in chart if applicable My X-ray interpretation: Noted in chart if applicable My Ultrasound interpretation: Not applicable Decision rules/scores evaluated: Noted in chart if applicable Discussed with: Not applicable Treatment and Disposition ED Course: Patient was interviewed and examined. I have discussed with the patient that what she has is a contusion. The patient has many varicosities of this extremity. I explained to her that she broke a blood vessel and because the surface of the skin did not break, the bleeding went beneath the skin forming this bruise. I discussed with her that over time this will resolve. I discussed with her the discharge diagnosis, plan of care, home-going instructions. I discussed rest, ice, elevate. I discussed with the patient that DVTs do not occur on the anterior surface. The patient will be discharged to home in stable condition. She is to follow-up with her primary care physician. She is to return to the emergency department for any further problems or concerns. Shared decision making: Code status: Not applicable Assessment/Plan 1. Contusion of left lower leg (S80.12XA: Contusion of left lower leg, initial encounter) 2. Varicose veins of lower limb (I83.90: Asymptomatic varicose veins of unspecified lower extremity) Disposition Plan Patient Discharge Condition Stable Discharge Disposition Home Discharge Prescription List Prescriptions No active prescription medications Follow-up With When Contact Information JAVIER MARY In 3 days 12/08/2022 EST [address], [facility] [address] [place] [address]- Business (1) Additional Instructions: Patient Education Venous Thromboembolism Prevention Deep Vein Thrombosis Simms Cyst Contusion, Ddtw-ly-Jmaj Bleeding Varicose Veins Attestation Patien (more content not included)... [facility] Comment on above: Result Comment: Elec tronically Signed By: Nichole Petit PA-C\.br\Date and Time Signed: 12/05/22 11:57 EST\.br\Electronically Co-Signed By: Bruno Dowell MD\.br\Date and Time Co-Signed: 12/11/22 17:54 EST Coding Summary.on 12-07-2022 Coding Summary. CD:[id number] Gh0bWw+PGhlYWQ+PE1FV OTdX14etKSahQ3BI0eOD G6QILMTTYHVUT5YIE1uc XM1TYciC9WsyoVi XlnjaTExGN01LXy3ASE5 xUnuCOnqfV2vwOPuN1g6 IqYkDX43gU37SYrvVIKb GmS6JkWpzcgayYXz U2ndReTdyOZlXdv+PHRh YmxlIHdpZHRoPScxMDAl HcPnaNvcBV0fMv0cIEWe LWNvbGxhcHNlOiBj v3wyTMFzPOjzMQ8vnSlj W2NlrUP7BSIvh1g1Jw84 dHI+ROKaRYS5yJeqFPdv x701EgLcb5zjMFS4 mTHdNRjmXPO5B78rj1Y8 JIIoSUAaLOO7qGI2yG6k mAafowlxJ6TcoRXrReK6 UNG9aJBeyD5szYgt rcbbiT5kTti+X37SMF9A JWJQFW5EVmt2L7KuVrvm dHI+EN94BJVyDH78oWJx hHBrz6bvtXq5GwTz UYLqTMA5uKrvGGmbr5Pa WDThI18syHWhs0J6GZTv cKjyiJSlAhDmeYX8yZ4t XDftjsnwg4ldyykt Ekjhk2mmon09yY55V81b CGutURXfDGV4YSOaQDFd gOjzsk6ocQ9eBe7+IDxj j8wba7cirOp2RwJk MULrmrZilXyeULI7i1Jt Ih74C7SqiIyiw0MmNon5 ww09uRSrv1C6sTD7NLwy NWPjkN0bSRdnZtV9 AHFmKbKphF92tRNuFUrb Hl3vwNskeVpjSJ7vSHIe cuxjCBKoyS9uRNOtiVYh wUygPJ5xDMLvwgha k429NgQpGBP3UIHyhDCh W0HosT0xUyGcOMVoYMVm G7OnuXByZIirB736KIxi SfQ3MIVchwBoM1Ns KZWmlXsnBeU5l3E6Jf1V y8EhghorYAB0NCjfZNFz NdU1AuOsTnG4C0OhNph0 SHKutGliTR9rG3Nh OPXrveksauycaUH4ZEJz VUHkvE16uWJcXFdfZq8q o0N8o901ZWFqHXUrvV21 Cs9qbLciBQKyiNJY hN0vszscy4iqbcgwReJl FUTvOFq0EGv3OTVphSwi EiUuYEA0MoR9QVB4bPTh zW7xzCjwniyhvZ3z Oyc+F95wqJ2dMZK3IOR4 epveYRIibxMnNV07OH80 D3WaYgqicEQqpLH+PGRp upJehHuoKJ1eKtDd d5abn0PtKHvnS6GbPNRy WJokEru4TWLbOQC2zQL3 gF0gCMWyGIekk8R6nML1 R8OmatKayn6mh6lo RNEzGPkiW50sfATnc1K8 AXIguXM5FVMdtKxeBtSn hG09New+AQNzsDiaj9Pq Gluce1pti3pknRo3 IjMwJSIgdmFsaWduPSJ0 d7EdBl52T59qYAibMLJk NOGdEPDjWXUymMnuxu5s kZ9iEq6+PGNvbCB3 mSW9gV4rOLWnIpM5NZtd G239BfVziMDrFcedd1bd m0nfdQz6ZfIoAFDglePh hWtvCTB2i3AoFp99 J20lYXfiVAXwJAIxAEXx DSOtyWvoef8egZ0yIu3+ IZ0wo3tmwk44zN27qST+ MYIiQQI1wEqfIYhj POHrjC1nCWtwKnX8OIZd YdMtiG47vWFrHNauCs9l tDblpEexUC9aEJVeaazk m139ZtZsb8pdZDFm bHHbWGzoUFE1Q46ca2L5 OKIdHDOrFWO2wUN6dO5g bGlnbjogbGVmdDsgdmVy oXvsBNwoMJacG819 IHRvcDsnPlBhdGllbnQg SaQfHTi4L7WfAce1NYVb iWckVT3hoEBkEGjgWa7a eGjemIabOO0bIJYc lambv560ZnGym7ejDYGg bSEvDNagSDA9Q69op8O4 EYOyQAVuLNM7hWR0wG7u bGlnbjogbGVmdDsg cbCknDbhDAqnXOdnY678 IHRvcDsnPkJpcnRoIERh lBX8PT74LJ32sZJus6Y9 kQT6D1JdSSHsrktv tgwruKH2HQArGLSipW59 Bl6veJrkCt8rWEVjTDA4 FQBzyHTiU0ZsxU8zPfZq VLDrGZIzR2RprDXo HZrmD105AVtfGeB7NYFg bsYuA8CaCUIcgMvwKmI8 e0M0Wc0KO0K2CH82WW83 xJEtk1E1rCO3A1Ck HLGytkuotzyavIU1QMCs EGXahU34Ic0zkXuoGj0n LYLaYZV5IHPoqEYoG6Zr wZ0lXmYlNVRoLATf Y9NsoNQsEIpiP953AHlq AkE8RLWxjjDdY5WmOQQd iLmeBmO0c0N5Wy5GEGp7 NT73DL96wGJkf3K9 hFE2T9GxTNUrncrmjaxm nII8PPWwVQDdpN04Yi3b nCcmXk6bBGGwSDA0WGDg cNCjU5SjsM4fMqMt NFRmQFLjV0WbzJQcQMlh V628HHdpCgV9IVYngfUl M2GjUISrkJchFlC8t1B5 Tf0OENDcLS71EYK5 aZS6VZ49QJ62U7HsOopq dGFibGU+PHRhYmxlIHdp ZHRoPScxMDAlJyBzdHls IC0hYp7sGNDtDCKz sEuiiHFcWzZpi0koNOAz EFwwWS7jnDwgA6RqmWO0 YVDqn5z8Xr67V10mG7Nu dXA+QRIvmOK1vQB2 qV9nNpMsPdH2JGmwV810 QrDaaFQlAekhn5ire5en jXb8BtW2LRLwlbQwlOet FPD7w3SoSd91W14f IHdpZHRoPSIxNSUiIHZh yAurea8woG9sQf9+PGNv dRO1cQV9dC8wHnVjRvE5 EKfeG232EyLxoASw Ycrxe5zsy7ojhIu8CdFg RWIvmkJfoAuyACD0e5Jk Dd80D9DtzUhdr5GeIae8 hy43eVZth3X2dWV1 J1QvIESskoxaaPPwlZak QH5cMNFxnmeqHZKbwJ2g CBCfS1n7UaZsFpD0JGgf C9XvsfB6NSPkhZLk LZfbZHJ2H12ft0Z1ICZk USAeTOE4sEE5nD0evLwh bjogbGVmdDsgdmVydGlj EQclJVslK927KHDz wRzqCNNgbK1vEPIbnBIa aQcnYK0aITZxrnktNgnA VVBLRSwgQkFSQkFSQSBF XN26VV38kNFtx8J6 hYT7Q7OrHKKdzyidnltp yBO3LOWkORRvwP57dEFu ETemOa4rf3V2e745MZWr LREyaV53Hi9trTgr SYKbrOJKsT2dolwce6to fiaoDrYbDAUhVYp8XNg3 EKSxfJqvCfNwWVR9WgA5 ABV2pADvsV7xmMfk wapltD7oVdp+MDEvMjYv GBu7PolsqSG+PHRkIHN0 jQivIItmYAQpoC3mFHAo S3p4KxZtWrL3AEar P4DhIVQjohqvUn56gY1r SxMpDyG0NSdzN7JssfN0 RELmsACsUIouNQJ1D29r t2H3FSAkNASfJZR7 pLS6tE1xeGcnjtbbkGFy dDsgdmVydGljYWwtYWxp Y491XSBobYrlFwxeAYha CUXbIX58YP66oKDs z6M4mZJ9P3LvHZQkocnq ydkatMV6AAVsKTXtuV39 cMFlNDtbCt1hb9O9h423 YIYmSNZleW05Cy7z iMqlBSNgsFSTaP2uttlu v6rqhyfcRoLlHBRgPEb3 YZx4KWXbvMtrHkBeJBO1 YrN3NDS1aNIvzF2w gYrswbhjpV1eWqz+RmVt YKdnYH20BR76vOSah5W7 wIO2X1OcAAXbhqlstnoq lUJ6ACJjYQRvzI93 lPEkHCgtJd3nh6A6h983 CZHiTUMfuC20Oh1tyOjt LXDdtXTThI3pjkuae4lq cjogIzAwMDAwMDt0 WEk1NWOtbJlnCnKuQRN3 AcM0DIF7gCGgaJ7cmLup mvhdqY2yJki+EJ2uqgpf kjX6EL34XK26A8Ob PjwvdGFibGU+PHRhYmxl IHdpZHRoPScxMDAlJyBz wXkvUF6rCq7oHWKfWUNd zNowbRJrRkZrs3gd MHKdDGjsYC5myQojS7Rf bEL7JKXkg7l9Vs35T20z Q0VumEG+XJXbpOY7lVA5 xV8wCnLcTeO1SKhd Y886EqGsuKXhWebvj4zd e8vfyLw9WeZxGTAbhgXu hKinZEM6h1YtCy40T25j IHdpZHRoPSIyMCUi PEWpyEdhov4cwE9jXz7+ SYMgfVP9dKO3uH6hPdJm FrS9EFcpP413IpYsoAWx QhwvB85dP9ThcPL+ UHJiTme2LAVdkFvzOY8g xFFbNIekFc7sFUK8FwOi VmQsBLcpP1RpMMHzgjqh koyumDS4TNYrHECt nZ87Ir3dfYrrMr1kTWXo JNB4SVYpkBUxM0YyjV3y QbIdVCLkMECbX8JzjHWg RDsmL742OYfsBfR4 VEWllmKhA6EbGMZanJil StL4r2Q3At0FvLjbgRAs ZF2pHiVfPPl1N9YnPjg9 PBSyfKpiQM1ojNGq XKreSo8eeIxilSsrTW3p RYLncchnp006PkWip6vq IAYfgHXnOPsjISD6S69r y7D6CTYzNRGdBCU8 tEI6wX8gwMaitujqcDUf dDsgdmVydGljYWwtYWxp W684IDMquDrpFjRHCfw0 X3JhYjz3OFEmtAsg CD6sfUDrAGbxFr0jfQej eRxqLH8fSMGlxditu397 NjJuo2tyDXYycSMyIVwp QZR8C22nh5Q3QCEm ECKfTGI2mWT7aO8jkUwt bjogbGVmdDsgdmVydGlj XWomAVgsN106WSIszDuq Sq4FVdg0K4LtQlb7 HHMrgQbhLO9ecHQoAKkj Sz6pgDbyzMqaPA0eGMDw cgckd126TeKse1geVLLd lDRmUGcxQRO4U86g c5H2LXCnHHVpRNQ0cMG7 nL0dzLbotpccqYYhtHkq icErlOeyNYghGWewI855 IHRvcDsnPlBheWVy OjwvdGQ+FG01rz93J0Ms CdudTic6IOZwDFX9sAY5 sK8hPEGiBAlcz8F6qYZ4 C7VtciEbvb2cb8yg YXBz (more content not included)... [facility] Consent for Treatmenton 11-12 Consent for Treatment [id number] #1.00CD:127 [facility] Discharge Instructionson Discharge Instructions [id number] 1#1.00CD:127 [facility] ED Clinical Summaryon 2022 ED Clinical Summary [place] [id number] ED Clinical Summary Person Information Name: DARWIN HEART/[facility] Age: 82 Years : 1940 Sex: Female Language: Montserratian PCP: JAVIER MARY DO Marital Status: Phone: [phone] Visit Id: Visit Reason: Lower leg pain-swelling; left leg pain Speciality: Acuity: 4 Enc Type: Emergency Med Service: Emergency Arrival: 12/05/2022 09:12:17 Discharge: 12/05/2022 09:52:26 LOS: 000 00:40 Checkin: 12/05/2022 09:12:17 Checkout: 12/05/2022 09:52:26 Dispo Type: Home (Routine DC) EVENTS: Event Name Event Status Request Date/Time Start Date/Time Complete Date/Time Arrive Complete 12/05/2022 09:12:17 12/05/2022 09:12:17 12/05/2022 09:12:17 Document Home Meds Request 12/05/2022 09:12:17 Triage Complete 12/05/2022 09:12:17 12/05/2022 09:21:51 12/05/2022 09:21:51 Bed Assign Complete 12/05/2022 09:18:45 12/05/2022 09:18:45 12/05/2022 09:18:45 Dr Exam Complete 12/05/2022 09:18:45 12/05/2022 09:20:02 12/05/2022 09:20:02 RN Exam Complete 12/05/2022 09:18:45 12/05/2022 09:51:52 12/05/2022 09:51:52 Registration Complete 12/05/2022 09:20:02 12/05/2022 09:38:13 12/05/2022 09:38:13 Discharge Complete 12/05/2022 09:33:14 12/05/2022 09:52:34 12/05/2022 09:52:34 Reg Complete Request 12/05/2022 09:38:13 Reg Bed Request Complete 12/05/2022 09:38:13 12/05/2022 09:38:13 12/05/2022 09:38:13 Transfer Complete 12/05/2022 09:52:34 12/05/2022 09:52:34 12/05/2022 09:52:34 ADDRESS: [address] [place] [id number] [facility] NOTES: MEDICAL INFORMATION: Prescriptions Given: Medications to Continue with No Changes Other Medications acetaminophen (Tylenol 325 mg Tab) 2 Tablets By Mouth every 4 hours as needed Pain/Fever. amlodipine (amLODIPine 10 mg Tab) 1 Tablets By Mouth every day. ascorbic acid (Vitamin C 500 mg Tab) 1 Tablets By Mouth twice a day (with meals). aspirin (aspirin 81 mg oral tablet) 1 Tablets By Mouth every day. atorvastatin (atorvastatin 40 mg Tab) 1 Tablets By Mouth once a day (at bedtime). atorvastatin (atorvastatin 40 mg Tab) 1 Tablets By Mouth at bedtime. cephalexin (cephalexin 500 mg Cap) 1 Capsules By Mouth 4 times a day. Refills: 0. cephalexin (Keflex 500 mg Cap) 1 Capsules By Mouth 3 times a day. Take one capsule by mouth three times a day for ten days. Refills: 0. cycloSPORINE ophthalmic (Restasis ophthalmic) 1 Drops Both eyes every 12 hours. docusate (Colace 100 mg Cap) 1 Capsules By Mouth 2 times a day. ergocalciferol (Vitamin D2 50,000 intl units (1.25 mg) oral capsule) By Mouth every day. ferrous sulfate (ferrous sulfate 325 mg Tab) 1 Tablets By Mouth twice a day (with meals). fluticasone nasal (fluticasone 0.05 mg/inh Nasal [place]) 2 Sprays Nasal Inhalation every day. furosemide (furosemide 40 mg Tab) 1 Tablets By Mouth every day. lisinopril (lisinopril 20 mg Tab) 1 Tablets By Mouth every day. metoprolol (Metoprolol tartrate 50 mg Tab) 1 Tablets By Mouth 2 times a day. TAKE 1 TABLET BY MOUTH TWICE DAILY. pantoprazole (Pantoprazole [address] Tab) 1 Tablets By Mouth every day. PATIENT EDUCATION INFORMATION: Instructions: Venous Thromboembolism Prevention; Deep Vein Thrombosis; Simms Cyst; Contusion, Dvwj-ak-Lqaa; Bleeding Varicose Veins Follow up: With: Address: When: JAVIER MARY [address] [place] [address] Business (1) In 3 days 12/08/2022 DIAGNOSIS: 1:Contusion of left lower leg; 2:Varicose veins of lower limb [facility] ED Patient Education Noteon 12-05-2022 ED Patient Education Note Cardiovascular Bleeding Varicose Veins Varicose veins are veins that have become enlarged and twisted due to damaged valves in the veins. Varicose veins may cause complications such as painful ulcers, blood clots, and bleeding under the skin or on the surface of the skin. Valves in the veins help return blood from the vein to the heart. If these valves are damaged, blood flows backward and backs up into the veins. This causes increased pressure within the veins, which causes the veins to become larger. Varicose veins are normally found in the legs. What are the causes? This condition may be caused by: ? Thinning and stretching of the skin that covers the varicose veins (hypoplasia). ? Weak, thinning vein story. ? High blood pressure in the veins, due to the backup of blood that normally flows back to the heart. ? A growth in the pelvis (pelvic mass) that affects the veins in the legs. ? Taking medicines that thin the blood. These medicines may include aspirin, anti-inflammatory medicine, and other blood thinners. ? and childbirth. ? Blood clots, especially in deep veins (thrombophlebitis). What increases the risk? You are more likely to develop this condition if you: ? Have a family history of varicose veins. ? Are on your feet a lot. ? Are or have had a previous . ? Are overweight. ? Use control pills (oral contraceptives). ? Have an inactive (sedentary) lifestyle. ? Have a history of deep vein thrombosis (DVT). What are the signs or symptoms? Symptoms of this condition include: ? Bleeding on the outside surface of the skin near the veins. ? Bleeding under the skin. This looks like blue or purple discoloration in the skin that spreads beyond the veins. ? Burning pain. ? Itchy and aching legs. ? Heaviness, fatigue, and cramps in the legs, especially after long periods of standing, wearing tight clothing, or being in a hot climate. ? Severe skin dryness (varicose eczema). How is this diagnosed? This condition may be diagnosed based on: ? A physical exam that involves inspecting and feeling your enlarged veins and legs. ? Your medical history and overall health, including whether you have recently injured the area near the varicose veins. ? Your symptoms, including when you first noticed any bleeding or pain. ? A test that uses sound waves to produce images and measure blood flow through the veins (duplex ultrasound). How is this treated? Treatment may include: ? Raising (elevating) your leg above the level of your heart for 30 minutes a few times a day. ? Stopping bleeding and swelling by applying pressure (compression) to the area. This may be done by wearing an elastic bandage or compression stockings. ? Applying an antibiotic cream to any open sores. ? Exercising regularly and losing weight, if necessary. ? Having a procedure to close off or remove bleeding varicose veins using one of the following methods: ? Injecting a solution into veins that causes blood to clot and eventually causes the veins to fade (sclerotherapy). ? Using a laser to apply heat to the vein and close it off (laser treatment). ? Using an electrical current produced by radio waves to close off the vein (radiofrequency vein ablation). ? Removing the vein through small incisions made over the vein (phlebectomy). ? Tying the vein and removing it through incisions made over the vein (vein ligation and stripping). ? Piercing the veins using minimally invasive surgery (subfascial endoscopic laundry supervisor vein surgery). This method may be used in advanced cases. Follow these instructions at home: Medicines ? Take and use itit-rxj-vahxbim and prescription medicines and creams only as told by your health care provider. ? If you were prescribed an antibiotic cream, use it as told by your health care provider. Do not stop using the antibiotic even if your condition improves. Lifestyle ? Do not use any products that contain nicotine or tobacco, such as cigarettes, e-cigarettes, and chewing tobacco. If you need help quitting, ask your health care provider. ? Exercise regularly and do exercises as told by your health care provider. ? If directed, work with your health care provider to lose weight. General instructions ? Wear compression stockings, elastic bandages, or any wraps as told by your health care provider. These help to prevent blood clots and reduce swelling in your legs. ? Try to avoid sitting or standing for long periods of time. If you need to sit or stand for a long time, move around often to maintain blood flow (circulation). ? Elevate your legs above the level of your heart for 30 minutes, 4 times a day, or as often as directed. To do this, lie down with your leg propped up on a pillow or cushion so that your foot is above heart level. Doing this regularly can help prevent more bleeding from developing. ? Ch (more content not included)... [facility] ED Patient Summaryon 023 ED Patient Summary [place] [id number] Patient Discharge Instructions Person Information Name: DARWIN HEART Age: 82 Years Arrival Date: 12/05/2022 09:12:17 Discharge Diagnosis: 1:Contusion of left lower leg; 2:Varicose veins of lower limb Primary Care Physician: JAVIER MARY DO Provider Information Primary Provider: [employer] Director:None The exam and treatment you received in the Emergency Department were for an urgent problem and are not intended as complete care. It is important that you follow up with a doctor, nurse practitioner, or physician?s critical care physician assistant for ongoing care. If your symptoms become worse or you do not improve as expected and you are unable to reach your usual health care provider, you should return to the Emergency Department. We are available 24 hours a day. [facility] has been given the following list of patient education materials, prescriptions and follow-up instructions: Follow-up Instructions: With: Address: When: JAVIER MARY [address] [place], [place] [id number] [facility] () In 3 days 12/08/2022 In the event that this physician does not participate in your insurance network, please consult with your insurance company to find a nearby participating provider. Patient Education Materials: Venous Thromboembolism Prevention; Deep Vein Thrombosis; Simms Cyst; Contusion, Qyzl-ny-Jzbz; Bleeding Varicose Veins A MESSAGE TO ALL PATIENTS REGARDING OPIOIDS PRESCRIPTION OPIOIDS: WHAT YOU NEED TO KNOW Prescription opioids can be used to help relieve dhrtxuln-mj-cwirlq pain and are often prescribed following a surgery or injury, or for certain health conditions. These medications can be an important part of the treatment but also come with serious risks. It is important to work with your healthcare provider to make sure you are getting the safest, most effective care. WHAT ARE THE RISKS AND SIDE EFFECTS OF OPIOID USE? Prescription opioids carry serious risks of addiction and overdose, especially with prolonged use. An opioid overdose, often marked by slowed breathing, can cause sudden . The use of prescription opioids can have a number of side effects as well, even when taken as directed: ? Tolerance?meaning you might need to take more of the medication for the same pain relief ? Physical dependence?meaning you have symptoms of withdrawal when a medication is stopped ? Increased sensitivity to pain ? Constipation ? Nausea, vomiting, and dry mouth ? Sleepiness and dizziness ? Confusion ? Depression ? Low levels of testosterone that can result in lower sex drive, energy, and strength ? Itching and sweating RISKS ARE GREATER WITH: ? History of drug misuse, substance use disorder, or overdose ? Mental health conditions (such as depression or anxiety) ? Sleep apnea ? Older age (65 years and older) ? Avoid alcohol while taking prescription opioids. Also, unless specifically advised by your health care provider, medications to avoid include: ? Benzodiazepines (such as Xanax or Valium) ? Muscle relaxants (such as Soma or Flexeril) ? Hypnotics (such as Ambien or Lunesta) ? Other prescription opioids KNOW YOUR OPTIONS Talk to your health care provider about ways to manage your pain that don?t involve prescription opioids. Some of these options may actually work better and have fewer risks and side effects. Options may include: ? Pain relievers such as acetaminophen, ibuprofen, and naproxen ? Some medication that are also used for depression or seizures ? Physical therapy and exercise ? Cognitive behavioral therapy, a psychological, goal-directed approach, in which patients learn how to modify physical, behavioral, and emotional triggers of pain and stress. IF YOU ARE PRESCRIBED OPIOIDS FOR PAIN: ? Never take opioids in greater amounts or more often than prescribed. ? Follow up with your primary health care provider. o Work together to create a plan on how to manage your pain. o Talk about ways to help manage your pain that don?t involve prescription opioids. o Talk about any and all concerns and side effects. ? Help prevent misuse and abuse o Never sell or share prescription opioids. o Never use another person?s prescription opioids. ? Store prescription opioids in a secure place and out of reach of others (this may include visitors, children, friends, and family). ? Safely dispose of unused prescription opioids: Find your community drug take-back program or your pharmacy mail-back program, or flush them down the toilet, following guidance from the Food and Drug Administration (www.fda.gov/Drugs/R esourcesForYou). ? Visit www.cdc.gov/drugover dose to learn about the risks of opioids abuse and overdose. ? If you believe you may be struggling with addiction, tell your health care professio (more content not included)... [facility] Coding Summary.on 11-16-2022 Coding Summary. CD:[id number] Gh0bWw+PGhlYWQ+PE1FV XUwN38wyZVmjX8IQ1fDU T9ZWZLHHLXHMT5HRN9sj QL0TQhqS9IfknQd PkmesLIiFE25ESf7SND3 qKtrVPxywT6ydTJtJ6r6 NgQkRP59tD88KRckNUPl LsR8YiXfodgzkQMg P9kgWwNzgTStEic+PHRh YmxlIHdpZHRoPScxMDAl IyUfhKkzPA3dYh7wKYNx LWNvbGxhcHNlOiBj n0tmURFwBXftCL0trHxf T1WnsKS7FCTxo1u1Fb10 dHI+FWFnGMV9vTzyDRsj y695VcJao1lwVTT5 qVNoGJmjSYD6V06ai5I2 IPZrFDOlRDW5kKV1aP7a tThcnnhcO8OqcOCiSuD5 JSK7vQKdmG0udNcf spnzaG9eXtp+Y46VSF1W KTWSKR7NEji5E9CjRgmn dHI+ZN89QANpQW37cNVo vESbv6uilTw8CqMd AIKeNKK3rWdyHMamy8St ISYpK58ywQWpy7C0AAMh zKvdnCFtZcQkkZI8sU5v HIkpomoqi5qthbbi Icsep8rfda77uZ08Q17d BEbpSMCxHCE5MHIvREGe rJcgkd2srB6vWg3+IDxj v8oez5rvvTw0JfCm DCQcwmSjnOozZXO6o2Gx Zj73U4WuuEscg4LbMwh4 cp39gLRcd0A6xYJ5NJxg SFVjjY3mOIrrHzO8 VEVnPqPgnQ96dSXbPExh Iq1nfOszdGbjKP7qBDGh ljfrWNYbsJ1zOVSqtDBd yRpfPI6uASFqxmkg o492SmZuYDK8UUFxcGQd G0DvkV5cVkWuRHDoBMJb Z0WvrSXsQNzhM836SCab UwO5SPQzxoYbN2Gg LMEthUozBoQ2q5U9Xm2P q5SlkavuVIW5RWjxNJGb McW7KgFgHvZ9R0PsUfa0 MWFeoSopFQ6lI4Vu ARKhapwabliifUW7JYXn EUVknK13wPPxCTfiYb0u z3M4d979PXCoQVVwqE14 Jr9irLndVIDznZCU cU4bktqxu6mliatuFbIr KZXzZRl1ZPs0INFlvYrr HlKdKXJ5CcY6GJX8vCHd kZ7krJnewfehfI2x Oyc+F78ntQ4wBYB4GIR2 zfeeIRDhklRiTJ53CL42 Q5GdYyigoKLjrOV+PGRp woRbjMeqUH5yZwKk z2dkf6PpGXrqY5MzJUSe VKgnBmm6JIXbLWV9jNO7 oX3wUIYaAEccm2O0aQD0 D8KgfjBezw9ad6aj UQAzLNddC63xbOEkl7M5 DRZgkSK5BLYjgHsnKzZa nM66Nxf+HDWapVfja7Wy Ymyyx8ywz0vkkLv5 IjMwJSIgdmFsaWduPSJ0 s8WbPg25Z38gQInqBNLl ITDlVMIjBXFchMaobt1l kD6hMx8+PGNvbCB3 iOM2pR5uQOPnQbQ4HPtx J741KmSqkSGoAcgxi3rg l7esyVl8XaEgNWXgdsUq mTntEMS7w8UcZp57 V01bHBdoZPEqBDPmKPBu PJWlrTeiol0zzD1yGx3+ FZ7uh3kzex05mK99mCD+ ZVUiAHS9hAaaEFcv GIEzrP1gWKpdBaR1CUYg WbOhdU58eEZxGShrBk9x iMdfeLzzLA5eVZOeuruf x174CxDpl7haOYDc fGSqPXjoQSM0C60gk0E4 YJFoWLJaFSN9qHP7wT5x bGlnbjogbGVmdDsgdmVy yMfjJBclIChuZ782 IHRvcDsnPlBhdGllbnQg IwHyVUd5A2NxTjn6JBYa nVdjLY6ykJPfCCzsZf4t qBwjpIzxTM0jOYNv idtys668NyLdm5jvDUWg gHLyABdjVTQ0W50pj6C6 KNRyRHHeTPD7wTZ9lG3i bGlnbjogbGVmdDsg dqIapVhvUKauYVssK584 IHRvcDsnPkJpcnRoIERh rVQ7EJ21ZR32kHErv2E3 aKQ0E9WdOZYqovwc tlkfvGW1AVJgLMDyfC69 Dz5psVghUp8bADQiOEH6 KFTuzUGbX6PmgF5kCrJj WQOzRKSdF7SsnGZt OIdsV404LVmwYiB0JMPb sxMfG7SaHWFqmIqxAaW1 p2O9To9TA9O0XE52XA73 cKUnp0N6wAV1A8Ra OAKamsnxkwhdbED2MUQy BMHrhY42Wd7eoLieDe5b UQRgBEP4HAGahXEpU3Ql uJ4sQeZcKQHlYCHs A4SwhCVgRYmuR719PDmg AcK3DULaheHbV6CnYLHr rOugRzP0e2Y8Fh9LQXd2 GR44JN98rBAeo9H7 rDW4H9KqUBMxetpbbxah hBL7LQLnLRQveN99Gq1i rJztPc3lHAOdPNV8DELv yPYfK6ZkkZ7lOyJp FUMzHCThQ2OiwARpWKki U439LDlzSyN8MYJqnbKq R3AzYVZskNisYeO7u6L5 Gn3DNFCiBT55URM1 tDE5ST99BX15G0JhTtdi dGFibGU+PHRhYmxlIHdp ZHRoPScxMDAlJyBzdHls HW1gQh9hAKKoGRWh wAdfcASsAjVmg6wcJBIm QQbiEQ0tzLccO4ErfOL8 BVHkn9r4Om83M52zV3Jw dXA+GSLwrNK3eGE8 gN7vRcEcMhC6XVfdY057 LwJyxKTpGtkxq8afd8su eFe2LeS0OMTjnfNbsBmw LQF6g5ZyIs66M84r IHdpZHRoPSIxNSUiIHZh iRqeyz8neF2iLb7+PGNv yMF6tVS8rJ3qGnYfToK4 VJjsF810HtSzoNSx Uozjf6wys4qvoSj9RkCs ZQDmbqOpdRhmHPP7n5Zm Wc45S6WtnVasu0IjTdw5 af46jUQyf7M1vSI7 A9IkWUZzipxbbFZfiIxd QU3sHMQdubcqNRXefO9i NDVbG2g6EhYuJsH3RCkk Z9JswlR8PRAfgQRy LQqgKCW5W87zp3W3DIGv TJMfXSM5dKH2fJ8utOsd bjogbGVmdDsgdmVydGlj LEqgXDbpD374AWJe sCtyWBUtfO0vQQQjoZLo sShhWD8oZSPbircvHpaS VVBLRSwgQkFSQkFSQSBF LB68RP12wSIfz1J8 bIW8X6NnVPXinosddsxf iXQ6TQHiFVAcoO97oMGr ZYccNr8ax8O0h866XOVu UBDhzJ77Lq8tiUdp QFTvzIDFkK0zqiwgm1rq finzDaEcRRChDSe6SSq2 YWPiaNztVhHbFCG3LeM8 FKK8fMIksZ5baEuq bbsvyB0uPef+MDEvMjYv RAy4AarxiVY+PHRkIHN0 lWtiNTpqTPQlqW1yKZBp A8j5AyUgCmQ1OJsx X1OyJOCqkdwbWo63qY8t VnCxAtO9WBexE6OcbyL7 ERGvsDTvVBzdKVD3W12i a6H0AKIiMWKmAKL3 eYF0uP8aoQolkxgufGDg dDsgdmVydGljYWwtYWxp F071KRMcuLacNzeoFXsi MIXdVO53MH22jZAv a6F1uBN2M0OoDRXyhjtd qjaubBP2JGAtCGViqM80 lYWrBQqeJv0eb8D7r470 HAIsFZKwjH96Mv0v dOisKCFbqYAMqO5mymdm b5zhcvskQqIhDDSjYWs8 FFy7KCZtaFsgQpTgJUA2 RiT8JLT7iGLfxV8k uJzcxdqwmR4uLbj+RmVt QWebIL37GS88pDGsb8S8 oCX8P5TsGWGlxywtlgjb xJH7EPIxWACakV25 iYWdTChuVj0uv8H3a251 XBUnZLBfuC00Kr1lrJbh DMXhdPRAoB4uqmdap5iv cjogIzAwMDAwMDt0 CIw8CRFghMkpQqMvENT1 WrU9LGB2qLWwlH3veXxu vhnurR3dKwf+FO2swwue paY4VE79PF31W1Yt PjwvdGFibGU+PHRhYmxl IHdpZHRoPScxMDAlJyBz gGguEX2uJs4xWFMgPFAc dYehtZTaKaDwg7bj ZAMcYEwzLG8pxQavB3Zf iVK9OMKog2o3Fg22Z68i R1JkbHY+GWZypPX3rKM3 oT6nDqWgErS5MMed O457XmFxeLTnKgnza8fk b6tqyOi8GaWsEFAocmYr jFvbBMO9u5NjOz97N02m IHdpZHRoPSIyMCUi MRAjvBzzns7nzX6iVv9+ BJOxwTA6yDG2eO9iNlSw HrB8SJxtZ533OnZaaHMg TaatM00aX0UpbMU+ VSDsUct5CZOrhYmzKP5c zOLmFQedEl4pXNT1HkMe WqQuJMbsG6KeYCMsrqby zifukEL4BJRuUADx vL93Os0raTxtQf5sVEMj OLY8PWLwqFYwQ7AyiI5a YgLfVWOyEHGbF1OhwAAv SYseC393BRwhVoR4 WTStoaHpD6DdYJLyyTdj AvG5i3U9Wo2PfBggqCXt YF4pLyAkMEn7Q1KiUcd2 TWTiiFznDL7hkTXj BCskQm7ykWhtdPmqFZ9o TPTtacyjg239WsFgh2bj DTSlhCRdIXyeQVO5Q88t e5H8WFIuBKQwVRF8 dIL8yB3thUvolotxxPXy dDsgdmVydGljYWwtYWxp D799FVBgfFquAlAZBfw3 C7VrZbo8DEFrnGhh MV6ofLYbLMhcGp2qmLjt bAayGC2tLXBtkdwje681 JhGgh1uiGFEjpFLpCTvz FZY7P64hr3O4VGOj OBUvTVU3rEW4wZ1prVta bjogbGVmdDsgdmVydGlj NNnyGUnlK590SFUpwJho Ws0CIdm3J0MuOth6 WMYwhNpiUZ0cvTUwGKyt Dr5suCyqdGohRZ8aAGLq zwxzb405WmQtr0mtIFWk aYSrIBatIDF4M49x u2F9ZMPyNUGnGVJ6eKI4 yG2mxGloaipboAUfsIsd rlOpmNkmAAiyYNezL707 IHRvcDsnPlBheWVy OjwvdGQ+PT28ue48A9Yv CyrpCsx4YFLiTQX2cCF3 dJ3vAUOnSWvnl3D2lZO3 B8VxefYehj8ji8sq YXBz (more content not included)... [facility] Consent for Treatmenton Consent for Treatment [id number] #1.00CD:127 [facility] Discharge Instructionson Discharge Instructions [id number] #1.00CD:127 [facility] ED Clinical Summaryon 2022 ED Clinical Summary [place] [id number] ED Clinical Summary Person Information Name: DAR[facility] HE[facility] Age: 82 Years : 1940 Sex: Female Language: Montserratian PCP: JAVIER MARY DO Marital Status: Phone: [phone] Visit Id: Visit Reason: Hand pain-swelling; RIGHT WRIST PAIN AND SWELLING Speciality: Acuity: 4 Enc Type: Emergency Med Service: Emergency Arrival: 11/12/2022 11:39:42 Discharge: 11/12/2022 13:11:00 LOS: 000 01:32 Checkin: 11/12/2022 11:39:42 Checkout: 11/12/2022 13:11:00 Dispo Type: Home (Routine DC) EVENTS: Event Name Event Status Request Date/Time Start Date/Time Complete Date/Time Arrive Complete 11/12/2022 11:39:42 11/12/2022 11:39:42 11/12/2022 11:39:42 Document Home Meds Request 11/12/2022 11:39:42 Triage Complete 11/12/2022 11:39:42 11/12/2022 11:52:12 11/12/2022 11:52:12 Bed Assign Complete 11/12/2022 11:52:29 11/12/2022 11:52:29 11/12/2022 11:52:29 Dr Exam Complete 11/12/2022 11:52:29 11/12/2022 11:53:59 11/12/2022 11:53:59 RN Exam Complete 11/12/2022 11:52:29 11/12/2022 11:55:39 11/12/2022 11:55:39 Registration Complete 11/12/2022 11:53:59 11/12/2022 12:31:26 11/12/2022 12:31:26 Dr Exam Complete 11/12/2022 11:54:37 11/12/2022 11:54:37 11/12/2022 11:54:37 X-Ray Complete 11/12/2022 12:10:22 11/12/2022 12:11:28 11/12/2022 12:19:32 Wet Read Request 11/12/2022 12:19:32 Reg Complete Request 11/12/2022 12:31:26 Reg Bed Request Complete 11/12/2022 12:31:26 11/12/2022 12:31:26 11/12/2022 12:31:26 Discharge Complete 11/12/2022 13:03:06 11/12/2022 13:16:10 11/12/2022 13:16:10 Transfer Complete 11/12/2022 13:16:10 11/12/2022 13:16:10 11/12/2022 13:16:10 [place] [place] [id number] PHYS DOC NOTES: MEDICAL INFORMATION: Prescriptions Given: Medications to Continue Taking That Have Changed [facility], [address] [place], [place] [id number], [phone] START: cephalexin (Keflex 500 mg Cap) 1 Capsules By Mouth 3 times a day. Take one capsule by mouth three times a day for ten days. Refills: 0. Other Medications START: cephalexin (cephalexin 500 mg Cap) 1 Capsules By Mouth 4 times a day. Refills: 0. Medications to Continue with No Changes Other Medications acetaminophen (Tylenol 325 mg Tab) 2 Tablets By Mouth every 4 hours as needed Pain/Fever. amlodipine (amLODIPine 10 mg Tab) 1 Tablets By Mouth every day. ascorbic acid (Vitamin C 500 mg Tab) 1 Tablets By Mouth twice a day (with meals). aspirin (aspirin 81 mg oral tablet) 1 Tablets By Mouth every day. atorvastatin (atorvastatin 40 mg Tab) 1 Tablets By Mouth once a day (at bedtime). atorvastatin (atorvastatin 40 mg Tab) 1 Tablets By Mouth at bedtime. cycloSPORINE ophthalmic (Restasis ophthalmic) 1 Drops Both eyes every 12 hours. docusate (Colace 100 mg Cap) 1 Capsules By Mouth 2 times a day. ergocalciferol (Vitamin D2 50,000 intl units (1.25 mg) oral capsule) By Mouth every day. ferrous sulfate (ferrous sulfate 325 mg Tab) 1 Tablets By Mouth twice a day (with meals). fluticasone nasal (fluticasone 0.05 mg/inh Nasal [place]) 2 Sprays Nasal Inhalation every day. furosemide (furosemide 40 mg Tab) 1 Tablets By Mouth every day. lisinopril (lisinopril 20 mg Tab) 1 Tablets By Mouth every day. metoprolol (Metoprolol tartrate 50 mg Tab) 1 Tablets By Mouth 2 times a day. TAKE 1 TABLET BY MOUTH TWICE DAILY. pantoprazole (Pantoprazole [address] Tab) 1 Tablets By Mouth every day. PATIENT EDUCATION INFORMATION: Instructions: Cellulitis, Adult Follow up: With: Address: When: JAVIER DRAPERGLES [address] [place], [place] [id number] Business (1) In 3 days 11/15/2022 DIAGNOSIS: Cellulitis; Wrist pain [facility] ED Note-Physicianon 11-12-19 ED Note-Physician Basic Information Time Seen: Clyde Alas PA-C 11/12/2022 11:54 Chief Complaint pt. came here d/t right hand swelling that she noticed today, Takes blood thinner, unspecified. Got hx of heart condition History of Present Illness 82-year-old female comes to the ED for evaluation of right wrist pain. She states she awoke today with some pain and swelling to the right wrist area. No known trauma. No fever, chills, nausea or vomiting or weakness or paresthesias. No history of similar symptoms in the past. Denies any history of gout. Review of Systems A 10 point review of systems is negative except as noted above. Medical and Surgical History: Reviewed and noted Social history: Lives at home Tobacco: Denies Physical Exam Vitals & Measurements T: 36.6 ?C(Oral) HR: 72(Peripheral) RR: 19 BP: 153/81 SpO2: 97% HT: 165 cm WT: 69 kg BMI: 25.34 Nurses notes and vital signs reviewed and patient is not hypoxic. General: The patient appears well, resting comfortably. Skin: Warm, dry. Head: Atraumatic. Neck: No JVD. Eye: Normal conjunctiva. Ears, Nose, Mouth, and Throat: Moist mucous membranes. Cardiovascular: Strong distal pulses. Chest wall: Respiratory: Respirations are nonlabored. Back: Normal range of motion. Musculoskeletal: Generalized swelling to the right wrist most noted along the volar aspect. There is some mild erythema and warmth. Good range of motion at the wrist pain strong pulses radius and ulna. No tenderness over the hand. No lymphangitis. Skin is intact. No fluctuance or induration. Gastrointestinal: Urological: Neurological: Awake and alert. No focal deficits. Follows commands. Psychiatric: Cooperative. Medical Decision Making Patient is atraumatic swelling with some mild redness and warmth to the right wrist. While this may be inflammatory in nature, the concern is for infectious process. Imaging is negative for acute pathology. She is placed in a wrist splint and placed on Keflex. She is neurovascular intact. She is to follow-up with her PCP. Patient was encouraged to return to the ED if symptoms worsen or change. Assessment/Plan Cellulitis (L03.90: Cellulitis, unspecified) Wrist pain (M25.539: Pain in unspecified wrist) Orders: cephalexin, 500 mg = 1 cap(s), Oral, TID, Take one capsule by mouth three times a day for ten days, # 30 cap(s), Refills(s) 0, Pharmacy: [facility], 165, cm, 11/12/22 11:52:00 EST, Height/Length Dosing, 69, kg, 11/12/22 11:52:00 EST, Weight Dosing Splint Application Wrist XR Wrist 3+ Views Right Disposition Plan Patient Discharge Condition Disposition: Discharged home Condition: Improved and stable Counseled: Patient and/or family were counseled to workup, results, treatment plan and follow-up recommendations Discharge Prescription List Prescriptions Keflex 500 mg Cap, 500 mg= 1 cap(s), Oral, TID Follow-up With When Contact Information JAVIER USMAN In 3 days 11/15/2022 EST [address], [facility] [address] [place] [address]- [facility] (1) Additional Instructions: Patient Education Cellulitis, Adult Attestation Patient seen and evaluated by the physician critical care physician assistant. Attending physician was present in the emergency department and supervised care. This visit was performed by both the physician and an APC. I performed all aspects of the MDM as documented. This report was transcribed using voice recognition software. Every effort was made to ensure accuracy, however, inadvertently computerized flaking roll operator mistakes may be present. Appropriate healthcare PPE was used in evaluating this patient. The patient was placed in a mask. The healthcare provider was wearing mask, gloves, and utilizing proper hand hygiene. All equipment was properly cleansed. Problem List/Past Medical History Ongoing Acute post-operative pain Carpal tunnel syndrome Closed fracture of left femur Difficulty walking up stairs HTN - Hypertension Mixed hyperlipidemia Post-traumatic subdural hematoma Historical AAA - Abdominal aortic aneurysm Anxiety Atrial fibrillation Jeremias's deformity Venous insufficiency of lower extemity Procedure/Surgical History Hip arthroplasty (07/06/2019), right carpal tunnel release (02/19/2014), BONE SPURS FOOT (03/22/2004), AAA repair, achilles tendeon repair, Colonoscopy, EXCISION CYST OF LEG, History of artificial heart valve.., Knee replacement, open heart, pig valve, REMOVAL CYST ON HAND. Medications Inpatient No active inpatient medications Home amLODIPine 10 mg Tab, 10 mg= 1 tab(s), Oral, Daily aspirin 81 mg oral tablet, 81 mg= 1 tab(s), Oral, Daily atorvastatin 40 mg Tab, 40 mg= 1 tab(s), Oral, Once a day (at bedtime), Not taking atorvastatin 40 mg Tab, 40 mg= 1 tab(s), Oral, Bedtime cephalexin 500 mg Cap, 500 mg= 1 cap(s), Oral, QID Colace 100 mg Cap, 100 mg= 1 cap(s), Oral, BID, Not taking ferrous sulfate 325 mg Tab, 325 mg= 1 tab(s), Oral, BIDWM, Not taking fluticasone 0.05 mg/inh N (more content not included)... [facility] Comment on above: Result Comment: Elec tronically Signed By: Clyde Alas PA-C\.br\Date and Time Signed: 11/12/22 13:31 EST\.br\Electronically Co-Signed By: Sanjeev Johnston DO\.br\Date and Time Co-Signed: 11/12/22 17:14 EST ED Patient Education Noteon 11-12-2022 ED Patient Education Note Infectious Disease Cellulitis, Adult Cellulitis is a skin infection. The infected area is usually warm, red, swollen, and tender. This condition occurs most often in the arms and lower legs. The infection can travel to the muscles, blood, and underlying tissue and become serious. It is very important to get treated for this condition. What are the causes? Cellulitis is caused by bacteria. The bacteria enter through a break in the skin, such as a cut, burn, insect bite, open sore, or crack. What increases the risk? This condition is more likely to occur in people who: ? Have a weak body defense system (immune system). ? Have open wounds on the skin, such as cuts, ogden, bites, and scrapes. Bacteria can enter the body through these open wounds. ? Are older than 60 years of age. ? Have diabetes. ? Have a type of long-lasting (chronic) liver disease (cirrhosis) or kidney disease. ? Are obese. ? Have a skin condition such as: ? Itchy rash (eczema). ? Slow movement of blood in the veins (venous stasis). ? Fluid buildup below the skin (edema). ? Have had radiation therapy. ? Use IV drugs. What are the signs or symptoms? Symptoms of this condition include: ? Redness, streaking, or spotting on the skin. ? Swollen area of the skin. ? Tenderness or pain when an area of the skin is touched. ? Warm skin. ? A fever. ? Chills. ? Blisters. How is this diagnosed? This condition is diagnosed based on a medical history and physical exam. You may also have tests, including: ? Blood tests. ? Imaging tests. How is this treated? Treatment for this condition may include: ? Medicines, such as antibiotic medicines or medicines to treat allergies (antihistamines). ? Supportive care, such as rest and application of cold or warm cloths (compresses) to the skin. ? Hospital care, if the condition is severe. The infection usually starts to get better within 1?2 days of treatment. Follow these instructions at home: Medicines ? Take qmyx-ngx-jqngdce and prescription medicines only as told by your health care provider. ? If you were prescribed an antibiotic medicine, take it as told by your health care provider. Do not stop taking the antibiotic even if you start to feel better. General instructions ? Drink enough fluid to keep your urine pale yellow. ? Do not touch or rub the infected area. ? Raise (elevate) the infected area above the level of your heart while you are sitting or lying down. ? Apply warm or cold compresses to the affected area as told by your health care provider. ? Keep all follow-up visits as told by your health care provider. This is important. These visits let your health care provider make sure a more serious infection is not developing. Contact a health care provider if: ? You have a fever. ? Your symptoms do not begin to improve within 1?2 days of starting treatment. ? Your bone or joint underneath the infected area becomes painful after the skin has healed. ? Your infection returns in the same area or another area. ? You notice a swollen bump in the infected area. ? You develop new symptoms. ? You have a general ill feeling (malaise) with muscle aches and pains. Get help right away if: ? Your symptoms get worse. ? You feel very sleepy. ? You develop vomiting or diarrhea that persists. ? You notice red streaks coming from the infected area. ? Your red area gets larger or turns dark in color. These symptoms may represent a serious problem that is an emergency. Do not wait to see if the symptoms will go away. Get medical help right away. Call your local emergency services (911 in the [place] Do not drive yourself to the hospital. Summary ? Cellulitis is a skin infection. This condition occurs most often in the arms and lower legs. ? Treatment for this condition may include medicines, such as antibiotic medicines or antihistamines. ? Take rfdd-wam-tcrabam and prescription medicines only as told by your health care provider. If you were prescribed an antibiotic medicine, do not stop taking the antibiotic even if you start to feel better. ? Contact a health care provider if your symptoms do not begin to improve within 1?2 days of starting treatment or your symptoms get worse. ? Keep all follow-up visits as told by your health care provider. This is important. These visits let your health care provider make sure that a more serious infection is not developing. This information is not intended to replace advice given to you by your health care provider. Make sure you discuss any questions you have with your health care provider. Document Released: 07/07/2006 Document Revised: 02/16/2019 Document Reviewed: 02/16/2019 Elsevier Patient Education ? 2019 [employer]. [facility] ED Patient Summaryon 023 ED Patient Summary [address] [address] Patient Discharge Instructions Person Information Name: DARWIN HEART Age: 82 Years Arrival Date: 11/12/2022 11:39:42 Discharge Diagnosis: Cellulitis; Wrist pain Primary Care Physician: JAVIER MARY DO Provider Information Primary Provider: Sanjeev Johnston DO Advanced Experience Design Director:Clyde Alas PA-C The exam and treatment you received in the Emergency Department were for an urgent problem and are not intended as complete care. It is important that you follow up with a doctor, nurse practitioner, or physician?s critical care physician assistant for ongoing care. If your symptoms become worse or you do not improve as expected and you are unable to reach your usual health care provider, you should return to the Emergency Department. We are available 24 hours a day. D[facility] has been given the following list of patient education materials, prescriptions and follow-up instructions: Follow-up Instructions: With: Address: When: JAVIER MARY [address] [place], [place] [id number] Business (1) In 3 days 11/15/2022 In the event that this physician does not participate in your insurance network, please consult with your insurance company to find a nearby participating provider. Patient Education Materials: Cellulitis, Adult A MESSAGE TO ALL PATIENTS REGARDING OPIOIDS PRESCRIPTION OPIOIDS: WHAT YOU NEED TO KNOW Prescription opioids can be used to help relieve [id number] pain and are often prescribed following a surgery or injury, or for certain health conditions. These medications can be an important part of the treatment but also come with serious risks. It is important to work with your healthcare provider to make sure you are getting the safest, most effective care. WHAT ARE THE RISKS AND SIDE EFFECTS OF OPIOID USE? Prescription opioids carry serious risks of addiction and overdose, especially with prolonged use. An opioid overdose, often marked by slowed breathing, can cause sudden . The use of prescription opioids can have a number of side effects as well, even when taken as directed: ? Tolerance?meaning you might need to take more of the medication for the same pain relief ? Physical dependence?meaning you have symptoms of withdrawal when a medication is stopped ? Increased sensitivity to pain ? Constipation ? Nausea, vomiting, and dry mouth ? Sleepiness and dizziness ? Confusion ? Depression ? Low levels of testosterone that can result in lower sex drive, energy, and strength ? Itching and sweating RISKS ARE GREATER WITH: ? History of drug misuse, substance use disorder, or overdose ? Mental health conditions (such as depression or anxiety) ? Sleep apnea ? Older age (65 years and older) ? Avoid alcohol while taking prescription opioids. Also, unless specifically advised by your health care provider, medications to avoid include: ? Benzodiazepines (such as Xanax or Valium) ? Muscle relaxants (such as Soma or Flexeril) ? Hypnotics (such as Ambien or Lunesta) ? Other prescription opioids KNOW YOUR OPTIONS Talk to your health care provider about ways to manage your pain that don?t involve prescription opioids. Some of these options may actually work better and have fewer risks and side effects. Options may include: ? Pain relievers such as acetaminophen, ibuprofen, and naproxen ? Some medication that are also used for depression or seizures ? Physical therapy and exercise ? Cognitive behavioral therapy, a psychological, goal-directed approach, in which patients learn how to modify physical, behavioral, and emotional triggers of pain and stress. IF YOU ARE PRESCRIBED OPIOIDS FOR PAIN: ? Never take opioids in greater amounts or more often than prescribed. ? Follow up with your primary health care provider. o Work together to create a plan on how to manage your pain. o Talk about ways to help manage your pain that don?t involve prescription opioids. o Talk about any and all concerns and side effects. ? Help prevent misuse and abuse o Never sell or share prescription opioids. o Never use another person?s prescription opioids. ? Store prescription opioids in a secure place and out of reach of others (this may include visitors, children, friends, and family). ? Safely dispose of unused prescription opioids: Find your community drug take-back program or your pharmacy mail-back program, or flush them down the toilet, following guidance from the Food and Drug Administration (www.fda.gov/Drugs/R esourcesForYou). ? Visit www.cdc.gov/drugover dose to learn about the risks of opioids abuse and overdose. ? If you believe you may be struggling with addiction, tell your health animal care attendant and ask for guidance or call [facility]?S [facility] Helpline at 1-107-017-Shopping Mail. [employer] Source: [place] [employer] (more content not included)... Normal [facility] XR Wrist 3+ Views Righton XR Wrist 3+ Views Right Exam Date/Time: 11/12/2022 12:19 EST Reason for Exam: Pain, Traumatic Report IMPRESSION: THERE ARE NO ACUTE CHANGES. THERE ARE CALCIFICATIONS IN SOFT TISSUES WITHIN THE JOINT SPACES WHICH MAY BE SECONDARY TO CHRONIC DEGENERATIVE CHANGES, OSTEOARTHRITIS. CLINICAL INFORMATION: Pain, Traumatic COMPARISON: None. FINDINGS: Four views of the right wrist were obtained. The bones of the right wrist appear normal without evidence of fracture or dislocation. There are calcifications of the radiocarpal spaces and between the first and second carpal row indicating soft tissue, ligamentous or joint calcifications. FINAL REPORT Dictated: 11/12/2022 12:53 pm Juanjo Wolf MD, V. Signed (Electronic Signature): 11/12/2022 12:53 pm Signed by: Juanjo Wolf MD, V. Transcribed by: JOLEEN Technologist: [facility] Office Visit (Cardiology)on 10-20-2022 Follow-up visit Diagnoses/Problems Assessed Atrial flutter (427.32) (I48.92) Aortic valve stenosis (424.1) (I35.0) Hyperlipidemia (272.4) (E78.5) Hypertension (401.9) (I10) Overweight with body mass index (BMI) of 26 to 26.9 in adult (278.02,V85.22) (E66.3,Z68.26) White coat syndrome with hypertension (401.9) (I10) CAD (coronary artery disease) (414.00) (I25.10) Former smoker (V15.82) (Z87.891) Quit over 20 years ago. Orders Atrial flutter IO EKG Electrocardiogram- 12 Lead; Status:Complete; Done: 20Oct2022 IO EKG Electrocardiogram- 12 Lead; Status:Complete; Done: 20Oct2022 CAD (coronary artery disease) Renew: Aspirin 81 MG Oral Tablet Delayed Release; take one tablet on Wed and only CAD (coronary artery disease), Hypertension Renew: Lisinopril 20 MG Oral Tablet; TAKE 1 TABLET DAILY CAD (coronary artery disease), PMH: History of atrial fibrillation, Hypertension Renew: Furosemide 40 MG Oral Tablet; TAKE 1 TABLET DAILY Overweight with body mass index (BMI) of 26 to 26.9 in adult Healthy Weight Tips; Status:Complete - Retrospective Authorization; Done: 20Oct2022 Some eating tips that can help you lose weight.; Status:Complete - Retrospective Authorization; Done: 20Oct2022 SocHx: Former smoker Tobacco Use Screening; Status:Complete; Done: 20Oct2022 Patient Instructions Please bring all medicines, vitamins, and herbal supplements with you when you come to the office. Prescriptions will not be filled unless you are compliant with your follow up appointments or have a follow up appointment scheduled as per instruction of your physician. Refills should be requested at the time of your visit. Follow up in 6 months with ekg The provider reviewed the following test(s) and result(s) with the patient: ECG Chief Complaint [facility] is being seen for a 6 with ecg month follow-up of. History of Present Illness Patient is here for follow-up continue management for atrial flutter status post cardioversion, coronary artery disease, aortic valve replacement, hypertension and hyperlipidemia. Since last time I saw her she denies any cardiac complaint of chest pain, palpitation, lightheadedness, dizziness or syncope. Her only complaint is easy bruisability otherwise denying any complaint. Her recent laboratory data noted and reviewed with her. Her EKG today showed normal sinus rhythm. ASSESSMENT: 1. History of atrial flutter status post t cardioversion. Remains in normal sinus rhythm and on Eliquis. 2. Coronary artery disease with prior two-vessel bypass surgery with left internal mammary artery to left anterior descending artery and vein graft to the right coronary artery. Appears stable with no angina 3. Status post aortic valve replacement last echo was done back in 2020 4. 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 5.. Hypertension, appears to be controlled. She does have documented history of white coat hypertension. 6.. Hyperlipidemia, treatment and controlled 7.. Obesity recent weight loss 8. Probably early dementia 9. See bruisability due to aspirin and Eliquis RECOMMENDATIONS: 1. Risk, benefit and alternative of anticoagulation/ Eliquis reviewed with patient and her son they both understood and agreed. Recommended to reduce the dose of aspirin 2. I counseled her regarding losing weight, exercise, and risk factor adjustment. 3. I suggest her to keep her next follow-up appointment 4. Endocarditis prophylaxis reviewed with patient 5. Patient was advised to restrict her salt intake. 6. Natural history of atrial flutter and the possible recurrence and need for ablation discussed with her at length 7. I reviewed her EKG with her and her son and 8. We will see her in 6 months 9. I reviewed her recent lab work with her 10. Next time we will see her we will consider repeating her echocardiogram Active Problems Problems Aortic valve stenosis (424.1) (I35.0) Atrial flutter (427.32) (I48.92) CAD (coronary artery disease) (414.00) (I25.10) Former smoker (V15.82) (Z87.891) Quit over 20 years ago. 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 amLODIP (more content not included)... [facility].on 023 Adult depression screening assessment No [facility] 600 DO Work Phone: Fall risk assessment a) [facility] the [facility] Work Phone: Tobacco use status CP b) No [facility] 600 DO Work Phone: Coding Summary.on 10-01-2022 Coding Summary. [id number] Gh0bWw+PGhlYWQ+PE1FV ODpM59rkRYbpE9WN3lPB X9GFQTGPMGWUO5ZXJ3yc LD8SYttB6OdqxFj TgqbfOIdCG47GHj4FFN9 oJxbOItfrY5udLGhO3t8 OcXbNR51zE50CBsvSIEq HlG4UzOfopawoDDi U5ggLxQtbWBiUmh+PHRh YmxlIHdpZHRoPScxMDAl ViCdcAtdHU6lDw2rDRGi LWNvbGxhcHNlOiBj c5ehGRElWWdvBA3fhFyg M8TylBU0KHIwd0u7Fw40 dHI+UXQdJBW0yJpoCSby c373VxPiy6blYEV2 sRYtNOriSLG8J26li4A6 LAGeKOWoRJB8cHA2fY5b gKdeyablC3FdyBVgYaJ7 XXT0gNKzvV2vzJez buxdyW2yBgi+P36GWE5W RAIEAP0MJnt4A8UrDwrv dHI+QO54DSVaLL95iLIe iOSfn3ilzLc0YpPc VRPuNIF7sPmyBQuqn5Gp HBImF97abEMpm6X3GLFp rQidwIPbJrDqsHQ2jX3y EGkwndawf6tqdwml Gkhxd7dwvm62uM67W85n UApnUUMpOJJ2XUEvMKNz pSmnpg8vdM7qUi4+IDxj z9kst5bhvXw0IcRb NNHeuzKxgAjkFEL3u8Wj Wd71F4WaeYsvl1UvGpb3 vd72oTGsj6T1kDL4WLrm YQDdzI1oYPlgFzU1 BRIaVuUouW55nHPgYRcj Jc3uvRlaqLvyIW3dCXIq tpulKESazY0pSTTojMRt iLtaLH8yGNSlhpzo u920XrHkPCR8DKGyoGOk C2MmxK9zSnKmFILpQXCc Z8MrbBJpGQzcL818CUrh NvZ0CWSegyLcN5Fe FBPquJrdAdY8s2D2Yh5U f7JwdlobCXZ3JAlsWQUs GhJyKnPlFwY5N3BxVdt3 CRAdkHqsPY7sT6Ik HLRpebmlsjdnmXM9ELEx QAJfzA90vQOpOGffLz7t r0F3z212WPVvMXGeaB07 Jw6yuDhqWQSwyUHD hU1kdgult2stazyfPhVm ESNdXBd3WKc3LVVpeHtz PkOwBOE6TbK5QMA6nZMo yY8wlTxrrfhezV0y Oyc+L62xhR9vRBU6CAC0 layeLKEzisCdBW74JN51 X5NeFvwvhUIhjYP+PGRp tkFurEbxDU3oYnIu o8hxe3NgIAnvG2MyFQRs ZDfqRpw5RTFaBCP6iPZ8 cC2wSOQzUAblo5D1yNJ2 C7YxtlJkqd5pu3wt LRJiCPutX94gsAPxs9K9 KXRpmCM8IBKfaMhjPuGj nE42Jhl+MJMsnRpob2Zr Bkmxq8rzy5oylTq4 IjMwJSIgdmFsaWduPSJ0 k0PvCk33M08oEUdsQWBy DNZwQFQiVGUsaVvbps1x zR5sXz7+PGNvbCB3 dBJ4lY5rOPLoOcD5AWol B917ErRnpTRoXafzp4rb j4hdgFa7RrFiIFAugmSo fBkkNCL6h1JzDa18 E27dOPmpLBLaUEVsQJRg AUIvmUirtb8nxS9aIw0+ YV5mr2bmbp05xV50rED+ VHRyCEF3cMciSVgi FFGwjZ3uTMucRpG7SFSz QvMzwB67gVVdSKjpVk5s zLdsxQlwPF4pQPOvtdmq f932NgTbl2kaESAq zBZeDSuvVXT8R22fg7Z0 WSRsIFBcMSO4uTP2sC1e bGlnbjogbGVmdDsgdmVy mKjdWKwgYQudO465 IHRvcDsnPlBhdGllbnQg RbApFHl4S3EwFxt3JKYd sSdbAE9ahPVjMCrdVm6v sSjccWmwRJ9qSTHx wysqx967EkDjj3jmWTCr iJNrPJttVTH6F87zt7M7 JQSqDYHzGNI0yHL2hX8g bGlnbjogbGVmdDsg inXnqBtbPTnmVRftA108 IHRvcDsnPkJpcnRoIERh oQM1BG11XO81iXDyp9M5 hTB1U5JtLLTunifz vtmwcHH1EMDsWJNivZ03 Bc8qjQzvTm6aJQHgREW6 CDUdjHKgR4TloU5dFfMj GYFhKASjU3MtpBBe SKtuC883WFqoAmQ0MSHg olNyG7MyCCGxlBuoTzR3 k0S1Rw3LH5X3IP58YP10 iZAah2L4uSM9Q0Ob YLXjjaufwkdtjKC8XXYz HBRbnJ71Gj9bfNnsLe1t TLTzLXY3ZLUygQKpI4Vt gX5pLpScMKOtZZKf J9HwjHEyOTjjQ965YAhr KdQ9OWOfztIaX1WbQXXw zTmwJjN1u6Q3Rp0MHWi5 VQ36IT09fRWfw2N6 fKL8T6YoFZWqdocvzmdb pUA0KDQpHPSxwV04Sz0k gCcsGc4bYRKwQBH1JXZw iKZkZ8HdbY6vGcTg SBNfJDNcH2ZksNSoRMhf L289USvuSeG5IEJtakGa D3AnHCYlfByzApI7r4V7 Yu8SMWNoFH28DXF4 mCK7YV38SG46D6GmTxpw dGFibGU+PHRhYmxlIHdp ZHRoPScxMDAlJyBzdHls SF3lAg3aPLCoDESh rIktsFNjXtWpf6esIFLu JMvnFD6wfSblR8JptVT2 WEMsn2z9Ds38L49pW3Tg dXA+IZUrwUB3pAO4 iK2dBoBjByG0CWtnQ363 WbKndCPrAwmcx6yxj5tu uOv6VbF5ZYPhsqAuuNql UND8p9QlGe90V88u IHdpZHRoPSIxNSUiIHZh mIpyir4amX3rPq6+PGNv nUF2eBW6uR2hPtXfEcF7 DFgcV213SvPjoHAf Bqqkd9mpa9lxtVf8WmHi FOTmpfLniMioERX4f7Fa Lw35A4UxuGpbr9NmIni5 fy59wVJds2B1oNF5 W0ErRJRcqpgwsMJgsXig YO8eNMTbuocjMWRjbM8n KGKyT6q0VgOfZtE4UVyi E0BlzxX5EWGhdFZn HYraGFA9T11mn5Y5KJMs FQSdXHY7uAN2yI5ayAhy bjogbGVmdDsgdmVydGlj YQcwMEdfA235ZVFc nEuwSUOjeI7hJWJfzGHr eCmvAP8uQJJbgoglEtvN VVBLRSwgQkFSQkFSQSBF PB13LG39tDRpp3L4 xIX7E7HqPUMdweaoznil tHQ0AAWsHDZqaR85gDZk FTtlHm2pt7N7y719BRGb CCRyjU92Ph5jkNwg EKNksJEUiN1lxuqcq1kd yxbpYkXkRAQxUPn0SEm0 GWSozCaeNiRoTLD7RbS8 ONB4nSKgrL1cuTvs vbuxvQ5xLar+MDEvMjYv SBc3GtwciWH+PHRkIHN0 iHlaRMarVCJpgL6dDSUr V0e2ScVsBlH4LPla K5DuIQDefjvwEz97mM6u GtPzRwN1TLdoC6FnkzY2 TWHapRNrNTytZIJ5B12u t6B3KBGhSAEfAUU8 hQC0jX4nbFrqviaaiWTl dDsgdmVydGljYWwtYWxp T508BMTonHyyVlq2IEnr ZWQqIG47XC39bGSp p8C6rMG3T9QfDKUgvuhn bbnxyVA6KFTbBLFkpJ58 oBWgWQhaYl6cs9S5e972 DFKuQAVwfC94Je6q rWncYJJchMGJvI4hrjds m5pdefxnZqFcGDSnHWc3 RFg0LRUegNfhMaIjQLJ0 HmA4RVH6jPPevA9m qLrrlzwtpN2oVnn+RmVt BOefHA71QZ73vNHtm8Q2 fEP3N6KmDYYbitilzhxn aJM2BAGrLIAawT35 vKLqGTcfIt6oh7H0i162 OAHlKDWjdH31Pd3bgVig SBZkbIBEaW0huwcxr2zz cjogIzAwMDAwMDt0 HCm2OYEutQwcAqTcFVB5 KpS3FJX0nQZabE1tnSxn ydslsI1iAci+S5F5rSK4 aWVudDwvdGQ+PC90 bi47J3ZcYibbDps1MOVj WHS7cFP1bP1iQABsXSql g6J4nKZ4J7JpfbPqek2g a9xbVDRnGBqqS87m rAIzu7O9QIBmnZF0IXGz iMxnOeOauT90Ezm+PGNv zGbsk5JqZhfkz6nkz1ob fLy4EuGeGGRwloNu tNucIID3t5WtUf47K68s IHdpZHRoPSIzMCUiIHZh cKgutv0kvW3hWu0+PGNv iWD8oUY1bO3rHmJb DeM3CDonH536WeAasTCx Nayiv6cdl7xafSe6KjNh TMQmowPuuYyjTIU1f5Ju Fi55Q2CifRhit5Jx Swf4xc94fFGth2Q9pXY9 N1LjILYqkkifkFSthWvu XF5fYFUdrsfsLEVhjI6o BZUfF7w8MnOiTmQ6 QUcgN9WvmhD4SVOegAGd KLVbiLYXzV9wwxcif4wo vfzsNzIxOFSmNZj1HQw5 LWFsaWduOiBsZWZ0 UyW3NSO3iAXptC4ycZyj rttabJ0eTiv+PIq4e4mw fGUfGV7stMI7HY06HD85 gTUah8L0rFR7E1Ii HDHzwiejrbaaaXK1YTIa ZDXfuN37Zz8puQftPq9p UTHsXCS1PPRtsPSaU3Wh xE0yXpDyCSPuBOMj R3FgsKBnTJqbH950EYem KtU0YUVmhmPxI0IsBFSj hQcrKbN0n5L1Bv6XRB41 YD99UG97cAGdq3R3 wYJ9Q3YzMWTskokcuuot tWS6TUBqCEDmaE92Xh6s tYobOd1sXUQwIZT5IFIj wIZlI1LbkR9hFzUr EPUuEFCbO2IbaOHtMIyb I182LGlhFyM6RRWeicBs J9VgOTOfpLpmOpF4v0Z8 Kg3XHr29TS33FH23 rHUar7N1oAW1K1QfPXOt awcyccrjgQX8JLKwGEEv pB91Bt5rnBisEj2qOBBb QWW6DVXkxNJxO2Sw yH0oZzDsQKYbNQDyR5Np oGLhNCucV085UIoiPuM4 QYZbrxLaT6EwLLUiiPyq YyH7k7U8Qa1YGWcw kwi4A1DfCxllbRS+PC90 JUNwYG02lKVewVDkc8nc aVt3ZfRhGYEsYUN7sSkm QTymp8QfEJItO84w bGFw (more content not included)... Normal [facility] John 09-28-2022 ALT No additional P-5'-P [Catalytic activity/Vol] 17 Int._Unit/L Normal 6-46 [facility] Comment on above: Performed By: #### 1 [id number], 7815088, 1399210, 3788974 #### [facility] [address] [place] [address] Ryder 09-28-2022 AST [Catalytic activity/Vol] 18 Int._Unit/L Normal 5-43 [facility] Comment on above: Performed By: #### 1 [id number], 9058489, 6597382, [id number] #### [facility] [address] [place] [address] BMPon 09-28-2022 Anion gap [Moles/Vol] 12 mmol/L Normal 6-16 [facility] Comment on above: Performed By: #### 1 1932250, 2283903, 4303999, 7970162 #### [facility] [address] [place] [address] Calcium [Mass/Vol] 10.0 mg/dL Normal 8.9-11.1 [facility] Comment on above: Performed By: #### 1 6105346, 0549487, 3668962, 9321378 #### [facility] [address] [place] [address] Chloride [Moles/Vol] 102 mmol/L Normal 101-111 [facility] Comment on above: Performed By: #### 1 5976039, 3793491, 1743849, 1034418 #### [facility] [address] [place] [address] CO2 [Moles/Vol] 30 mmol/L Normal 21-[address] [facility] Comment on above: Performed By: #### 1 4103360, 0351982, 8593178, 0916901 #### [facility] [address] [place] [address] Creatinine [Mass/Vol] 1.0 mg/dL Normal 0.5-1.3 [facility] Comment on above: Performed By: #### 1 2021329, 7770886, 0189757, 2852885 #### [facility] [address] [place] [address] Glucose [Mass/Vol] 114 mg/dL Normal 55-199 [facility] Comment on above: Result Comment: If t his glucose result represents a fasting glucose, interpretation should refer to the following reference range: 55-99 mg/dL Performed By: #### 1 3398411, 5392184, 7351761, 7032733 #### [facility] [address] [place] [address] Potassium [Moles/Vol] 4.3 mmol/L Normal 3.5-5.3 [facility] Comment on above: Performed By: #### 1 2635060, 4696453, 9372615, 0916166 #### [facility] [address] [place] [address] Sodium [Moles/Vol] 140 mmol/L Normal 135-145 [facility] Comment on above: Performed By: #### 1 8194869, 7909897, 1551851, 6175082 #### [facility] [address] [place] [address] Urea nitrogen [Mass/Vol] 29 mg/dL High 5-21 [facility] Comment on above: Performed By: #### 1 1927362, 3302049, 8319001, 2280673 #### [facility] [address] [place] [address] Urea nitrogen/Creatinine [Mass ratio] 29 No Units High 10-20 [facility] Comment on above: Performed By: #### 1 9586684, 6238947, 5250990, 2588396 #### [facility] [address] [place] [address] CBC w/Indiceson 09-28-2022 Erythrocyte distribution width (RBC) [Ratio] 14.0 % Normal 10.9-14.2 [facility] Comment on above: Performed By: #### 1 3317043, 1547978, 8420654, 1614707 #### [facility] [address] [place] [address] Hematocrit (Bld) [Volume fraction] 39.9 % Normal 34.0-46.0 [facility] Comment on above: Performed By: #### 1 4292577, 4967548, 0764266, 2937255 #### [facility] [address] [place] [address] Hemoglobin (Bld) [Mass/Vol] 13.1 g/dL Normal 12.0-16.0 [facility] Comment on above: Performed By: #### 1 0785619, 4329431, 8208667, 6223163 #### [facility] [address] [place] [address] MCH (RBC) [Entitic mass] 29.6 pg Normal 27.0-34.0 [facility] Comment on above: Performed By: #### 1 4778852, 7990658, 2670685, 7908058 #### [facility] [address] [place] [address] MCHC (RBC) [Mass/Vol] 32.9 g/dL Normal 31.4-36.0 [facility] Comment on above: Performed By: #### 1 1340448, 2544478, 3563425, 9324023 #### [facility] [address] [place] [address] MCV (RBC) [Entitic vol] 90.0 fL Normal 80.0-100.0 [facility] Comment on above: Performed By: #### 1 1191268, 2664517, 6276595, 1360203 #### [facility] [address] [place] [address] Platelet mean volume (Bld) [Entitic vol] 7.7 fL Normal 6.4-10.8 [facility] Comment on above: Performed By: #### 1 5979008, 1118275, 2037995, 3312225 #### [facility] [address] [place] [address] Platelets (Bld) [#/Vol] 187.0 E9/L Normal 150.0-500.0 [facility] Comment on above: Performed By: #### 1 4756151, 1636839, 6786224, 0468574 #### [facility] [address] [place] [address] RBC (Bld) [#/Vol] 4.4 E12/L Normal 4.3-5.9 [facility] Comment on above: Performed By: #### 1 5861775, 7984550, 4556348, 5902282 #### [facility] [address] [place] [address] WBC corrected for nucl RBC Auto (Bld) [#/Vol] 7.2 E9/L Normal 4.0-11.0 [facility] Comment on above: Performed By: #### 1 5034344, 9610524, 1530282, 4466793 #### [facility] [address] [place] [address] CHEMISTRYOrdered By: SYSTEM SYSTEM on 09-28-2022 ALT No additional P-5'-P [Catalytic activity/Vol] 17 [iU]/d Normal 6 - 46 Int._Unit/L [facility] Anion gap [Moles/Vol] 12 mmol/L Normal 6 - 16 mEq/L [facility] AST [Catalytic activity/Vol] 18 [iU]/d Normal 5 - 43 Int._Unit/L [facility] Calcium [Mass/Vol] 10.0 mg/dL Normal 8.9 - 11. 1 mg/dL [facility] Chloride [Moles/Vol] 102 mmol/L Normal 101 - 1 11 mmol/L [facility] Cholesterol [Mass/Vol] 197 mg/dL Normal 120 - 200 mg/dL [facility] Cholesterol in HDL [Mass/Vol] 91 mg/dL Invalid Interpretation Code [facility] Cholesterol in LDL [Mass/Vol] 92 mg/dL Normal <=129mg/dL [facility] Cholesterol in VLDL [Mass/Vol] 9 mg/dL Normal 7 - 40 mg/dL [facility] Creatinine [Mass/Vol] 1.0 mg/dL Normal 0.5 - 1.3 mg/dL [facility] GFR/1.73 sq M.predicted among blacks MDRD (S/P/Bld) [Vol rate/Area] mL/min/1.73 m2 Normal >=59mL/min/1 .73 m2 [facility] [place] GFR/1.73 sq M.predicted among non-blacks MDRD (S/P/Bld) [Vol rate/Area] 53 mL/min/1.73 m2 Low >=59mL/min/1 .73 m2 [facility] [place] S Glucose [Mass/Vol] 114 mg/dL Normal 55 - 199 mg/dL [facility] Potassium [Moles/Vol] 4.3 mmol/L Normal 3.5 - 5.3 mmol/L [facility] Sodium [Moles/Vol] 140 mmol/L Normal 135 - 145 mmol/L [facility] Triglyceride [Mass/Vol] 47 mg/dL Normal <=149mg/dL [facility] Urea nitrogen [Mass/Vol] 29 mg/dL High 5 - 21 mg/dL [facility] Urea nitrogen/Creatinine [Mass ratio] 29 mg/mg High 10 - 20 [facility] Consent for Treatmenton 09-10 Consent for Treatment [id number] 21 [id number] #1.00CD:127 Normal [facility] HEMATOLOGYOrdered By: Noelle Daly on 09-28-2022 Hemoglobin (Bld) [Mass/Vol] 13.1 g/dL Normal 12.0 - 16.0 gm/dL [facility] MCH (RBC) [Entitic mass] 29.6 pg Normal 27.0 - 34.0 pg [facility] MCHC (RBC) [Mass/Vol] 32.9 g/dL Normal 31.4 - 36.0 gm/dL [facility] MCV (RBC) [Entitic vol] 90.0 fL Normal 80.0 - 100.0 fL [facility] Platelets (Bld) [#/Vol] 187.0 E9/L Normal 150.0 - 500.0 E9/L [facility] RBC (Bld) [#/Vol] 4.4 E12/L Normal 4.3 - 5.9 E12/L [facility] WBC corrected for nucl RBC Auto (Bld) [#/Vol] 7.2 E9/L Normal 4.0 - 11.0 E9/L [facility] [place] [facility] [place] - Chemistry and C hemistry - challengeon 09-28-2022 Cholesterol [Mass/Vol] 92 mg/dL Normal <=129 [facility] 600 DO Work Phone: Cholesterol in LDL [Mass/Vol] 9 mg/dL Normal 7-40 [facility] 600 DO Work Phone: Laboratory - Chemistry and C hemistry - challengeOrdered By: SYSTEM SYSTEM on 09-28-2022 CO2 [Moles/Vol] 30 mmol/L Normal 21-31 [facility] [place] [facility] - Hematology and Cell countsOrdered By: Noelle Daly on 09-28-2022 Erythrocyte distribution width (RBC) [Ratio] 14.0 % Normal 10.9-14.2 [facility] [place] [facility] Hematocrit (Bld) [Volume fraction] 39.9 % Normal 34.0-46.0 FT HemeAutoS S Platelet mean volume (Bld) [Entitic vol] 7.7 fL Normal 6.4-10.8 [facility] [place] [facility] Lipid Panelon 09-28-2022 Cholesterol [Mass/Vol] 197 mg/dL Normal 120-200 [facility] Comment on above: Performed By: #### [id number] #### [facility] [address] [place] [address] Cholesterol in HDL [Mass/Vol] 91 mg/dL Invalid Interpretation Code [facility] Comment on above: Result Comment: HDL > or equal to 60 mg/dL: Low cardiovascular risk HDL < 40 mg/dL : High cardiovascular risk Performed By: #### [id number] #### [facility] [address] [place] [address] Cholesterol in LDL [Mass/Vol] 92 mg/dL Normal <=129 [facility] Comment on above: Performed By: #### 1 [id number] #### [facility] [address] [place] [address] Cholesterol in VLDL [Mass/Vol] 9 mg/dL Normal 7-40 [facility] Comment on above: Performed By: #### 1 [id number] #### [facility] [address] [place] [address] Triglyceride [Mass/Vol] 47 mg/dL Normal <=149 [facility] Comment on above: Performed By: #### 1 [id number] #### [facility] [address] [place] [address] No Panel Informationon 09-28 187.0 {E9/L} Normal 150.0-500.0 [facility] 600 DO Work Phone: 90.0 fL Normal 80.0-100.0 [facility] 600 DO Work Phone: 32.9 {gm/dL} Normal 31.4-36.0 [facility] 600 DO Work Phone: 29.6 pg Normal 27.0-34.0 [facility] 600 DO Work Phone: 13.1 {gm/dL} Normal 12.0-16.0 [facility] 600 DO Work Phone: 4.4 {E12/L} Normal 4.3-5.9 [facility] 600 DO Work Phone: 7.2 {E9/L} Normal 4.0-11.0 [facility] 600 DO Work Phone: 12 {mEq/L} Normal 6-16 [facility] 600 DO Work Phone: 102 mmol/L Normal 101-111 [facility] 600 DO Work Phone: 4.3 mmol/L Normal 3.5-5.3 [facility] 600 DO Work Phone: 140 mmol/L Normal 135-145 [facility] 600 DO Work Phone: 10.0 mg/dL Normal 8.9-11.1 [facility] 600 DO Work Phone: 29 {No_Units} above high threshold 10-20 [facility] 600 DO Work Phone: 1.0 mg/dL Normal 0.5-1.3 [facility] 600 DO Work Phone: 29 mg/dL above high threshold 5-21 [facility] 600 DO Work Phone: 114 mg/dL Normal 55-199 [facility] 600 DO Work Phone: Comment on above: If this glucose resu lt represents a fasting glucose, interpretation should refer to the following reference range: 55-99 mg/dL >60 Normal >=59 [facility] 600 DO Work Phone: Comment on above: eGFR is race adjuste d. AA=. 53 {mL/min/1.73_m2} below low threshold >=59 [facility] 600 DO Work Phone: Comment on above: Chronic kidney disea se could be indicated at eGFR's of less than 60 mL/min/1.73m2. Kidney failure is indicated at less than 15 mL/min/1.73m2. 17 {Int._Unit/L} Normal 6-46 [facility] 600 DO Work Phone: 18 {Int._Unit/L} Normal 5-43 [facility] 600 DO Work Phone: 47 mg/dL Normal <=149 [place] [address] DO Work Phone: 91 mg/dL [facility] 600 DO Work Phone: Comment on above: HDL > or equal to 60 mg/dL: Low cardiovascular riskHDL < 40 mg/dL : High cardiovascular risk 197 mg/dL Normal 120-200 [facility] 600 DO Work Phone: Physician Orderon 09-28-2022 Physician Order [id number] Normal [facility] eGFRon 09-28-2022 GFR/1.73 sq M.predicted among blacks MDRD (S/P/Bld) [Vol rate/Area] mL/min/{1.73_m2} Normal >=59 [facility] Comment on above: Order Comment: Order Added by Discern Expert. Result Comment: eGFR is race adjusted. AA=. Performed By: #### 1 [id number], [id number] #### [facility] [address] [place] [address] GFR/1.73 sq M.predicted among non-blacks MDRD (S/P/Bld) [Vol rate/Area] 53 mL/min/1.73 m2 Low >=59 [facility] Comment on above: Order Comment: Order Added by Discern Expert. Result Comment: [employer]ipeline [employer] Inspector karl kidney disease could be indicated at eGFR's of less than 60 mL/min/1.73m2. Kidney failure is indicated at less than 15 mL/min/1.73m2. Performed By: #### 1 [id number], [id number] #### [facility] [address] [place] [address] Tobacco Screening.on Adult depression screening assessment No [facility] 600 DO Work Phone: Fall risk assessment a) No falls within the last year [facility] 600 DO Work Phone: Tobacco use status CPHS b) No [facility] 600 DO Work Phone: A1C HEMOGLOBINon 03-16-2022 HbA1c (Bld) [Mass fraction] 5.2 % CHOBOLABS Other HbA1c (Bld) [Mass fraction]o n 03-16-2022 A1C HEMOGLOBIN [place] [employer] Other Tobacco Screening.on Fall risk assessment a) No falls within the last year [facility] 600 DO Work Phone: Tobacco use status CPHS b) No [facility] 600 DO Work Phone: No Panel Informationon 10-29 25.0\S\25.0 Normal 22.0-30.0 [facility] 250 DO Work Phone: Comment on above: PERFORMED BY:[facility] KAJALBettyKOREYGRE[place], [place] [id number] MEDICAL DIRECTORROBERTO CARLOS MURILLO M.D. 102\S\102 Normal 95-114 [facility] 250 DO Work Phone: 4.2\S\4.2 Normal 3.5-5.1 [facility] 250 DO Work Phone: 140\S\140 Normal 136-146 [facility] 250 DO Work Phone: Laboratory - Microbiology an d Antimicrobial susceptibilityon 10-27-2021 SARS-CoV-2 (COVID-19) RNA GISSEL+probe Ql (Unsp spec) [facility] 250 DO Work Phone: No Panel Informationon 10-27 Negative Normal Negative [place] [address] DO Work Phone: Comment on above: This is a duplicate Sharifa SARS Antigen (JAYMIE) result to be used for statistical tracking purpose only.PERFORMED BY:[facility] QU[place]ON[place], [place] [id number] MEDICAL DIRECTORROBERTO CARLOS MURILLO M.D. Falls Risk Screeningon 10-14 Fall risk assessment a) No falls within the last year [facility] 250 DO Work Phone: Falls Risk Screeningon 09-24 Fall risk assessment b) One or more fall s in the last year [facility] 600 DO Work Phone: Tobacco use status CPHS b) No [facility] 600 DO Work Phone: A1C HEMOGLOBINon 09-15-2021 HbA1c (Bld) [Mass fraction] 5.6 % CHOBOLABS Other HbA1c (Bld) [Mass fraction]o n 09-15-2021 A1C HEMOGLOBIN [employer] Other CBC AUTO DIFFon 12-15-2018 Basophils #/vol (Bld) 0.0 103/ul Normal 0.0-0.1 [facility] Comment on above: Performed By: #### C BC ####[facility] [address] [place] [id number] [place] Basophils/100 WBC (Bld) 0.4 % Normal 0.2-2.0 [facility] Comment on above: Performed By: #### C BC ####[facility] [address] [place] [address] Bryanna Eosinophils #/vol (Bld) 0.1 103/ul Normal 0.0-0.7 [facility] Comment on above: Performed By: #### C BC ####[facility] [address] [place] [address] Bryanna Eosinophils/100 WBC (Bld) 0.7 % Critically low 0.9-7.0 [facility] Comment on above: Performed By: #### C BC ####[facility] [address] [place] [address] Bryanna Erythrocyte distribution width Ratio (RBC) 13.2 % Normal 11.0-15.0 [facility] Comment on above: Performed By: #### C BC ####[facility] [address] [place] [address] Bryanna Hematocrit Volume Fraction (Bld) 34.9 % Critically low 36.0-48.0 [facility] Comment on above: Performed By: #### C BC ####[facility] [address] [place] [address] Bryanna Hemoglobin mass conc (Bld) 11.4 g/dL Critically low 12.0-16.0 [facility] Comment on above: Performed By: #### C BC ####[facility] [address] [place] [address] Bryanna IG # 0.06 10e3/ul Critically high 0.00-0.03 [facility] Comment on above: Performed By: #### C BC ####[facility] [address] [place] [address] Bryanna IG % 0.6 % Critically high 0.0-0.5 [facility] Comment on above: Performed By: #### C BC ####[facility] [address] [place] [address] Bryanna Lymphocytes #/vol (Bld) 2.0 103/ul Normal 1.2-3.8 [facility] Comment on above: Performed By: #### C BC ####[facility] [address] [place], [place] [address]Gerjluis Gould Lymphocytes/100 WBC (Bld) 18.9 % Critically low 20.5-60.0 [facility] Comment on above: Performed By: #### C BC ####[facility] [address] [place] [address] [place] MANUAL DIFF REQ NO Normal [facility] Comment on above: Performed By: #### C BC ####[facility] [address] [place] [address] Bryanna MCH Entitic mass (RBC) 30.2 pg Normal 26.7-34.0 [facility] Comment on above: Performed By: #### C BC ####[facility] [address] [place] [address] Bryanna MCHC mass conc (RBC) 32.7 g/dL Normal 29.9-35.2 [facility] Comment on above: Performed By: #### C BC ####[facility] [address] [place] [address] Bryanna MCV Entitic volume (RBC) 92.3 fL Normal 81.0-99.0 [facility] Comment on above: Performed By: #### C BC ####[facility] [address] [place] [address] Bryanna Monocytes #/vol (Bld) 0.9 103/ul Critically high 0.3-0.8 [facility] Comment on above: Performed By: #### C BC ####[facility] [address] [place], [place] [address]Gerjluis Gould Monocytes/100 WBC (Bld) 8.3 % Normal 1.7-12.0 [facility] Comment on above: Performed By: #### C BC ####[facility] [address] [place] [address] Bryanna Neutrophils #/vol (Bld) 7.6 103/ul Critically high 1.4-6.5 [facility] Comment on above: Performed By: #### C BC ####[facility] Dyukq[address] [place] Neutrophils/100 WBC (Bld) 71.1 % Normal 43.0-75.0 [facility] Comment on above: Performed By: #### C BC ####[facility] [address] [place] [address] Bry[place] Platelet mean volume Entitic volume (Bld) 9.5 fL Normal 9.5-13.5 [facility] Comment on above: Performed By: #### C BC ####[facility] [address] [place] [address] Bry[place] Platelets #/vol (Bld) 151 103/ul Normal 150-450 [facility] Comment on above: Performed By: #### C BC ####[facility] [address] [place] [address] Bryanna RBC #/vol (Bld) 3.78 106/ul Critically low 4.20-5.40 [facility] Comment on above: Performed By: #### C BC ####[facility] [address] [place] [address] Bryanna WBC #/vol (Bld) 10.7 103/ul Normal 4.0-11.0 [facility] Comment on above: Performed By: #### C BC ####[facility] [address] [place] [address] Bry[place] PROF CHEM 8 (BAS METB)on Anion gap molar conc 7.1 mmol/L Normal [facility] Comment on above: Performed By: #### B MP ####[facility] [address] [place] [address] [place] Calcium mass conc 9.5 mg/dL Normal 8.4-10.2 [facility] Comment on above: Performed By: #### B MP ####[facility] [address] [place] [address] [place] Chloride molar conc 109 mmol/L Critically high 98-107 [facility] Comment on above: Performed By: #### B MP ####[facility] [address] [place] [address]Gerken Bryanna CO2 molar conc 30.0 mmol/L Normal 22.0-30.0 [facility] Comment on above: Performed By: #### B MP ####[facility] [address] [place] [id number] Bryanna Creatinine mass conc 0.93 mg/dL Normal 0.52-1.04 [facility] Comment on above: Performed By: #### B MP ####[facility] [address] [place] EGFR-AF CZECH >60 Normal >=60 [facility] Comment on above: Performed By: #### B MP ####[facility] [address] [place] [address] [place] EGFR-NON AF CZECH 59 mL/min/1.73m2 Critically low >=60 [facility] Comment on above: Performed By: #### B MP ####[facility] [address] [place] [address] Bryanna Glucose mass conc 95 mg/dL Normal 74-106 [facility] Comment on above: Performed By: #### B MP ####[facility] [address] [place] [address] Bryanna Potassium molar conc 4.1 mmol/L Normal 3.4-5.0 [facility] Comment on above: Performed By: #### B MP ####[facility] [address] [place] [address]Gerken Bryanna Sodium molar conc 142 mmol/L Normal 137-145 [facility] Comment on above: Performed By: #### B MP ####[facility] X[address] Bryanna Urea nitrogen mass conc 18.0 mg/dL Critically high 7.0-17.0 [facility] Comment on above: Performed By: #### B MP ####[facility] [address] [place], [place] [address]Inugyj Karen Urea nitrogen/Creatinine mass ratio 19.4 mg/mg Normal [facility] Comment on above: Performed By: #### B MP ####[facility] [address] [place], [place] [address]Hvpsad Byranna CBC AUTO DIFFon 12-14-2018 Basophils #/vol (Bld) 0.0 103/ul Normal 0.0-0.1 [facility] Comment on above: Performed By: #### C BC #### [facility] Laboratory [address] [place] [id number] Marie Bryanna Basophils/100 WBC (Bld) 0.1 % Critically low 0.2-2.0 [facility] Comment on above: Performed By: #### C BC #### [facility] [address] [place] [address] Marie Bryanna Eosinophils #/vol (Bld) 0.0 103/ul Normal 0.0-0.7 [facility] Comment on above: Performed By: #### C BC #### [facility] [address] [place], [place] [address] Marie Bryanna Eosinophils/100 WBC (Bld) 0.0 % Critically low 0.9-7.0 [facility] Comment on above: Performed By: #### C BC #### [facility] [address] [place], [place] [address] Mariejluis Gould Erythrocyte distribution width Ratio (RBC) 12.7 % Normal 11.0-15.0 [facility] Comment on above: Performed By: #### C BC #### [facility] [address] [place], [place] [address] Mariejluis Gould Hematocrit Volume Fraction (Bld) 37.3 % Normal 36.0-48.0 [facility] Comment on above: Performed By: #### C BC #### [facility] [address] [place], [place] [address] Mariejluis Gould Hemoglobin mass conc (Bld) 12.6 g/dL Normal 12.0-16.0 [facility] Comment on above: Performed By: #### C BC #### [facility] [address] [place] [id number] Marie Bryanna IG # 0.12 10e3/ul Critically high 0.00-0.03 [facility] Comment on above: Performed By: #### C BC #### [facility] [address] [place] [id number] Marie Bryanna IG % 0.7 % Critically high 0.0-0.5 [facility] Comment on above: Performed By: #### C BC #### [facility] [address] [place] [address] Marie Bryanna Lymphocytes #/vol (Bld) 1.0 103/ul Critically low 1.2-3.8 [facility] Comment on above: Performed By: #### C BC #### [facility] [address] [place] [address] Marie Bryanna Lymphocytes/100 WBC (Bld) 5.9 % Critically low 20.5-60.0 [facility] Comment on above: Performed By: #### C BC #### [facility] [address] [place], [place] [address] Marie Gould MANUAL DIFF REQ NO Normal [facility] Comment on above: Performed By: #### C BC #### [facility] [address] [place] [address] Mariejluis Gould MCH Entitic mass (RBC) 30.2 pg Normal 26.7-34.0 [facility] Comment on above: Performed By: #### C BC #### [facility] [address] [place] [address] Mariejluis Gould MCHC mass conc (RBC) 33.8 g/dL Normal 29.9-35.2 [facility] Comment on above: Performed By: #### C BC #### [facility] [address] [place] [address] Marie Bryanna MCV Entitic volume (RBC) 89.4 fL Normal 81.0-99.0 [facility] Comment on above: Performed By: #### C BC #### [facility] [address] [place], [place] [address] Marie Bryanna Monocytes #/vol (Bld) 1.0 103/ul Critically high 0.3-0.8 [facility] Comment on above: Performed By: #### C BC #### [facility] [address] [place] [id number] Marie Bryanna Monocytes/100 WBC (Bld) 6.3 % Normal 1.7-12.0 [facility] Comment on above: Performed By: #### C BC #### [facility] [address] [place], [place] [address] Marie Bryanna Neutrophils #/vol (Bld) 14.1 103/ul Critically high 1.4-6.5 [facility] Comment on above: Performed By: #### C BC #### [facility] [address] [place], [place] [address] Marie Bryanna Neutrophils/100 WBC (Bld) 87.0 % Critically high 43.0-75.0 [facility] Comment on above: Performed By: #### C BC #### [facility] [address] [place], [place] [address] Marie Bryanna Platelet mean volume Entitic volume (Bld) 9.6 fL Normal 9.5-13.5 [facility] Comment on above: Performed By: #### C BC #### [facility] [address] [place], [place] [address] Marie [place]anna Platelets #/vol (Bld) 188 103/ul Normal 150-450 [facility] Comment on above: Performed By: #### C BC #### [facility] [address] [place], [place] [address] Marie Bryanna RBC #/vol (Bld) 4.17 106/ul Critically low 4.20-5.40 [facility] Comment on above: Performed By: #### C BC #### [facility] [address] [place], [place] [address] Marie Bryanna WBC #/vol (Bld) 16.2 103/ul Critically high 4.0-11.0 [facility] Comment on above: Performed By: #### C BC #### [facility] [address] [place] [id number] Mariejluis Yehen GLYCOHEMOGLOBIN A1Con 2018 Glucose mass conc 126 mg/dL Normal [facility] Comment on above: Performed By: #### A 1C #### [facility] [address] [place] [id number] Marie Bryanna Hemoglobin A1c/Hemoglobin.total mass fraction (Bld) 6.0 % Normal <=6.0 [facility] Comment on above: Performed By: #### A 1C #### [facility] [address] [place] [id number] Mariejluis Yehen PROF CHEM 8 (BAS METB)on Anion gap molar conc 10.8 mmol/L Normal [facility] Comment on above: Performed By: #### B MP #### [facility] [address] [place], [place] [address] Marie Bryanna Calcium mass conc 9.6 mg/dL Normal 8.4-10.2 [facility] Comment on above: Performed By: #### B MP #### [facility] [address] [place] [id number] Marie Bryanna Chloride molar conc 106 mmol/L Normal 98-107 [facility] Comment on above: Performed By: #### B MP #### [facility] [address] [place], [place] [address] Marie Bryanna CO2 molar conc 27.3 mmol/L Normal 22.0-30.0 [facility] Comment on above: Performed By: #### B MP #### [facility] [address] [place] [id number] Marie Bryanna Creatinine mass conc 1.20 mg/dL Critically high 0.52-1.04 [facility] Comment on above: Performed By: #### B MP #### [facility] [address] [place] [id number] Marie Bryanna EGFR-AF CZECH 53 mL/min/1.73m2 Critically low >=60 [facility] Comment on above: Performed By: #### B MP #### [facility] [address] [place] [address] Marie Bryanna EGFR-NON AF CZECH 44 mL/min/1.73m2 Critically low >=60 [facility] Comment on above: Performed By: #### B MP #### [facility] [address] [place] [id number] Marie Gould Glucose mass conc 151 mg/dL Critically high 74-106 [facility] Comment on above: Performed By: #### B MP #### [facility] [address] [place] [address] Marie Gould Potassium molar conc 4.1 mmol/L Normal 3.4-5.0 [facility] Comment on above: Performed By: #### B MP #### [facility] [address] [place] [address] Marie Gould Sodium molar conc 140 mmol/L Normal 137-145 [facility] Comment on above: Performed By: #### B MP #### [facility] [address] [place] [address] Marie Gould Urea nitrogen mass conc 25.0 mg/dL Critically high 7.0-17.0 [facility] Comment on above: Performed By: #### B MP #### [facility] [address] [place] [id number] Marie Golud Urea nitrogen/Creatinine mass ratio 20.8 mg/mg Normal [facility] Comment on above: Performed By: #### B MP #### [facility] [address] [place] [address] Marie Gould XR HEEL LT 2Von 12-13-2018 XR HEEL LT 2V [address] [place], [place] [id number] Patient: [facility] Exam Date: 12/13/2018 : 1940 Gender:F Ordering : DR. DARVIN CortezPBridger Admission #: [id number] Family : Order #: [id number] CLICK HERE TO VIEW EXAM RADIOLOGY REPORT PROCEDURE: RADIOGRAPH HEEL LEFT 2 VIEWS COMPARISON: XR ANKLE LT MIN 3 V, 11/18/2018. INDICATIONS: Calcaneal spur of left foot FINDINGS: BONES: The previously seen large degenerative enthesophyte at the Achilles tendon insertion into the calcaneus appears to have been removed. SOFT TISSUES: Images were obtained through cast material which limits evaluation. Subcutaneous air within the plantar soft tissues and retrocalcaneal soft tissues. Skin rui are noted posteriorly. OTHER: Negative. CONCLUSION: 1. Postsurgical changes. Dictated by: Fabiano Balderas M.D. on 12/13/2018 at 13:13 Approved by: Fabiano Balderas M.D. on 12/13/2018 at 13:14 Normal [facility] CBC AUTO DIFFon 12-06-2018 Basophils #/vol (Bld) 0.0 103/ul Normal 0.0-0.1 [facility] Comment on above: Performed By: #### C BC #### [facility] Laboratory [address] [place] [address] Marie Bryanna Basophils/100 WBC (Bld) 0.6 % Normal 0.2-2.0 [facility] Comment on above: Performed By: #### C BC #### [facility] Laboratory [address] [place] [address] Marie Bryanna Eosinophils #/vol (Bld) 0.1 103/ul Normal 0.0-0.7 [facility] Comment on above: Performed By: #### C BC #### [facility] Laboratory [address] [place] [address] Marie Bryanna Eosinophils/100 WBC (Bld) 1.1 % Normal 0.9-7.0 [facility] Comment on above: Performed By: #### C BC #### [facility] [address] [place] [address] Mariejluis Gould Erythrocyte distribution width Ratio (RBC) 13.0 % Normal 11.0-15.0 [facility] Comment on above: Performed By: #### C BC #### [facility] [address] [place] [address] Mariejluis Yehen Hematocrit Volume Fraction (Bld) 41.8 % Normal 36.0-48.0 [facility] Comment on above: Performed By: #### C BC #### [facility] [address] [place], [place] [address] Marie Gould Hemoglobin mass conc (Bld) 13.9 g/dL Normal 12.0-16.0 [facility] Comment on above: Performed By: #### C BC #### [facility] [address] [place] [address] Marie Gould IG # 0.03 10e3/ul Normal 0.00-0.03 [facility] Comment on above: Performed By: #### C BC #### [facility] [address] [place] [address] Marie Gould IG % 0.5 % Normal 0.0-0.5 [facility] Comment on above: Performed By: #### C BC #### [facility] [address] [place] [address] Marie Gould Lymphocytes #/vol (Bld) 1.7 103/ul Normal 1.2-3.8 [facility] Comment on above: Performed By: #### C BC #### [facility] [address] [place] [address] Marie Gould Lymphocytes/100 WBC (Bld) 26.4 % Normal 20.5-60.0 [facility] Comment on above: Performed By: #### C BC #### [facility] [address] [place] [address] Marie Gould MANUAL DIFF REQ NO Normal [facility] Comment on above: Performed By: #### C BC #### [facility] [address] [place] [address] Marie Gould MCH Entitic mass (RBC) 30.3 pg Normal 26.7-34.0 [facility] Comment on above: Performed By: #### C BC #### [facility] [address] [place] [address] Marie Gould MCHC mass conc (RBC) 33.3 g/dL Normal 29.9-35.2 [facility] Comment on above: Performed By: #### C BC #### [facility] [address] [place] [address] Marie Gould MCV Entitic volume (RBC) 91.3 fL Normal 81.0-99.0 [facility] Comment on above: Performed By: #### C BC #### [facility] [address] [place], [place] [address] Marie Bryanna Monocytes #/vol (Bld) 0.5 103/ul Normal 0.3-0.8 [facility] Comment on above: Performed By: #### C BC #### [facility] [address] [place], [place] [address] Marie Bryanna Monocytes/100 WBC (Bld) 7.4 % Normal 1.7-12.0 [facility] Comment on above: Performed By: #### C BC #### [facility] [address] [place], [place] [address] Marie Bryanna Neutrophils #/vol (Bld) 4.2 103/ul Normal 1.4-6.5 [facility] Comment on above: Performed By: #### C BC #### [facility] [address] [place] [id number] Marie Bryanna Neutrophils/100 WBC (Bld) 64.0 % Normal 43.0-75.0 [facility] Comment on above: Performed By: #### C BC #### [facility] [address] [place], [place] [address] Marie Bryanna Platelet mean volume Entitic volume (Bld) 9.4 fL Critically low 9.5-13.5 [facility] Comment on above: Performed By: #### C BC #### [facility] [address] [place] [id number] Marie Bryanna Platelets #/vol (Bld) 182 103/ul Normal 150-450 [facility] Comment on above: Performed By: #### C BC #### [facility] [address] [place], [place] [address] Marie Bryanna RBC #/vol (Bld) 4.58 106/ul Normal 4.20-5.40 [facility] Comment on above: Performed By: #### C BC #### [facility] [address] [place], [place] [address] Marie Bryanna WBC #/vol (Bld) 6.6 103/ul Normal 4.0-11.0 [facility] Comment on above: Performed By: #### C BC #### [facility] [address] [place] [address] Marie Gould PROF CHEM 8 (BAS METB)on Anion gap molar conc 12.2 mmol/L Normal [facility] Comment on above: Performed By: #### B MP #### [facility] [address] [place] [address] Marie Bryanna Calcium mass conc 10.2 mg/dL Normal 8.4-10.2 [facility] Comment on above: Performed By: #### B MP #### [facility] [address] [place] [address] Marie Bryanna Chloride molar conc 103 mmol/L Normal 98-107 [facility] Comment on above: Performed By: #### B MP #### [facility] [address] [place] [address] Marie Bryanna CO2 molar conc 31.7 mmol/L Critically high 22.0-30.0 [facility] Comment on above: Performed By: #### B MP #### [facility] [address] [place] [address] Marie Bryanna Creatinine mass conc 0.78 mg/dL Normal 0.52-1.04 [facility] Comment on above: Performed By: #### B MP #### [facility] [address] [place] [address] Marie Bryanna EGFR-AF CZECH >60 Normal >=60 The [facility] Comment on above: Performed By: #### B MP #### [facility] [address] [place] [address] Marie Bryanna EGFR-NON AF CZECH >60 Normal >=60 [facility] Comment on above: Performed By: #### B MP #### [facility] [address] [place] [address] Marie Bryanna Glucose mass conc 103 mg/dL Normal 74-106 [facility] Comment on above: Performed By: #### B MP #### [facility] [address] [place] [address] Marie Bryanna Potassium molar conc 3.9 mmol/L Normal 3.4-5.0 [facility] Comment on above: Performed By: #### B MP #### [facility] [address] [place] [address] Marie Gould Sodium molar conc 143 mmol/L Normal 137-145 [facility] Comment on above: Performed By: #### B MP #### [facility] [address] [place] [address] Mariejluis Gould Urea nitrogen mass conc 21.0 mg/dL Critically high 7.0-17.0 [facility] Comment on above: Performed By: #### B MP #### [facility] [address] [place] [address] Mariejluis Gould Urea nitrogen/Creatinine mass ratio 26.9 mg/mg Normal [facility] Comment on above: Performed By: #### B MP #### [facility] [address] [place] [address] Mariejluis Gould PROTIMEon 12-06-2018 INR Coag RelTime (PPP) 1.01 {INR} Normal [facility] Comment on above: Performed By: #### P T, PTT #### [facility] [address] [place] [address] Mariejluis Gould Prothrombin time (PT) Coag time (PPP) 10.4 s Normal 9.0-11.6 [facility] Comment on above: Performed By: #### P T, PTT #### [facility] [address] [place] [address] Marie Bryanna Prothrombin time (PT) Coag time (PPP) PLEASE NOTE: NORMAL RANGE CHANGE 06-28-2014 DUE TO REAGENT LOT CHANGE Normal [facility] Comment on above: Performed By: #### P T, PTT #### [facility] [address] [place] [address] Marie Bryanna Prothrombin time (PT) Coag time (PPP) SEE BELOW Normal [facility] Comment on above: Result Comment: KARLY RED INR: 2.0 - 3.0 CONDITIONS NOT LISTED BELOW 2.5 - 3.5 FOR PROSTHETIC HEART VALVE REPLACEMENT 2.5 - 3.5 RECURRENT THROMBOSIS Performed By: #### P T, PTT #### [facility] [address] [place], [place] [address] Marie Gould PTTon 12-06-2018 aPTT Coag time (Bld) PLEASE NOTE: NORMAL RANGE CHANGE 09-04-2015 DUE TO REAGENT LOT CHANGE Normal [facility] Comment on above: Performed By: #### P T, PTT #### [facility] [address] [place], [place] [address] Marie Gould aPTT Coag time (Bld) 30.5 s Normal 22.3-36.2 [facility] Comment on above: Performed By: #### P T, PTT #### [facility] [address] [place] [id number] Marie Gould XR ANKLE LT MIN 3 Von 2018 XR ANKLE LT MIN [address] [place] [id number] Patient: [facility] Exam Date: 11/18/2018 : 1940 Gender:F Ordering : DARVIN RobertBetty NOLASCOLYDIA Admission #: [id number] Family : Order #: [id number] CLICK HERE TO VIEW EXAM RADIOLOGY REPORT PROCEDURE: RADIOGRAPH ANKLE LEFT MIN 3 VIEWS COMPARISON: XR FOOT LT MIN 3 VIEWS, 11/18/2018. INDICATIONS: Acute on chronic left posterior ankle pain after recent injuries FINDINGS: BONES: No fracture dislocation. Mild degenerative changes midfoot. Moderate size degenerative enthesophyte at the Achilles tendon insertion into the calcaneus. SOFT TISSUES: No visible soft tissue swelling or radiopaque foreign body. EFFUSION: None visible. OTHER: Negative. CONCLUSION: 1. No acute bone abnormality. 2. Degenerative changes. No prior studies for comparison. Dictated by: Fabiano Balderas M.D. on 11/18/2018 at 15:25 Approved by: Fabiano Balderas M.D. on 11/18/2018 at 15:26 Normal [facility] XR FOOT LT MIN 3 VIEWSon XR FOOT LT MIN [address] [place] [id number] Patient: DARWIN [facility] Exam Date: 11/18/2018 : 1940 Gender:F Ordering : DARVIN HUTCHINS Admission #: [id number] Family : Order #: [id number] CLICK HERE TO VIEW EXAM RADIOLOGY REPORT PROCEDURE: RADIOGRAPH FOOT LEFT MIN 3 VIEWS COMPARISON: XR ANKLE LT MIN 3 V, 11/18/2018. INDICATIONS: Acute left foot pain after injury FINDINGS: BONES: No acute fracture dislocation. Mild degenerative changes of the midfoot. Moderate size degenerative enthesophyte at the Achilles tendon insertion into the calcaneus. SOFT TISSUES: No visible soft tissue swelling or radiopaque foreign body. OTHER: Negative. CONCLUSION: 1. Mild degenerative changes. No comparison studies. 2. No acute bone abnormality. Dictated by: Fabiano Balderas M.D. on 11/18/2018 at 15:19 Approved by: Fabiano Balderas M.D. on 11/18/2018 at 15:25 Normal [facility] Vital Signs Date Time Vital Sign Value Performing Clinician Facility 09-20-2023 16:00-0500 Body height 160.02 cm Javier Usman Other [facility] Other 09-20-2023 16:00-0500 Body mass index (BMI) [Ratio] 26.04 kg/m2 Javier Usman Other [facility] Other 09-20-2023 16:00-0500 Body temperature 97.9 [degF] Javier Usman Other [facility] Other 09-20-2023 16:00-0500 Body weight 66.68 kg Javier Usman Other [facility] Other 09-20-2023 16:00-0500 Diastolic blood pressure 70 mm[Hg] Javier Usman Other [facility] Other 09-20-2023 16:00-0500 Respiratory rate 20 /min Javier Usman Other [facility] Other 09-20-2023 16:00-0500 SaO2% (BldA) [Mass fraction] 99 % Javier Usman Other [facility] Other 09-20-2023 16:00-0500 Systolic blood pressure 140 mm[Hg] Javier Usman Other [facility] Other 06-21-2023 10:45-0400 Body height 160.02 cm Javier Usman Other [facility] Other 06-21-2023 10:45-0400 Body mass index (BMI) [Ratio] 24.8 kg/m2 Javier Usman Other [facility] Other 06-21-2023 10:45-0400 Body temperature 96 [degF] Javier Usman Other [facility] Other 06-21-2023 10:45-0400 Body weight 63.5 kg Javier Usman Other [facility] Other 06-21-2023 10:45-0400 Diastolic blood pressure 82 mm[Hg] Javier Usman Other [facility] Other 06-21-2023 10:45-0400 Respiratory rate 20 /min Javier Usman Other [facility] Other 06-21-2023 10:45-0400 SaO2% (BldA) [Mass fraction] 97 % Javier Usman Other [facility] Other 06-21-2023 10:45-0400 Systolic blood pressure 116 mm[Hg] Javier Usman Other [facility] Other 06-02-2023 09:33-0400 Body height 162.56 cm Javier M Usman Work Phone: [facility] [facility] [address] DO Work Phone: 06-02-2023 09:33-0400 Body mass index (BMI) [Ratio] 24.55 kg/m2 Javier M Usman Work Phone: [facility] 600 DO Work Phone: 06-02-2023 09:33-0400 Body surface area Derived from formula 1.7 m2 Javier M Usman Work Phone: [facility] 600 DO Work Phone: 06-02-2023 09:33-0400 Body weight 64.86 kg Javier M Us[facility] Work Phone: 06-02-2023 09:33-0400 Diastolic blood pressure 70 mm[Hg] Javier M Usman Work Phone: [facility] [employer] 600 DO Work Phone: 06-02-2023 09:33-0400 Heart rate 60 /min Javier M Usman Work Phone: [facility] 600 DO Work Phone: 06-02-2023 09:33-0400 Systolic blood pressure 136 mm[Hg] Javier M Usman Work Phone: [facility] [facility] 600 DO Work Phone: 05-10-2023 13:30-0400 Body height 160.02 cm Javier Usman Other [facility] Other 05-10-2023 13:30-0400 Body mass index (BMI) [Ratio] 25.51 kg/m2 Javier Usman Other [facility] Other 05-10-2023 13:30-0400 Body temperature 97.7 [degF] Javier Usman Other [facility] Other 05-10-2023 13:30-0400 Body weight 65.32 kg Javier Usman Other [facility] Other 05-10-2023 13:30-0400 Diastolic blood pressure 58 mm[Hg] Javier Usman Other [facility] Other 05-10-2023 13:30-0400 Respiratory rate 20 /min Javier Usman Other [facility] Other 05-10-2023 13:30-0400 SaO2% (BldA) [Mass fraction] 94 % Javier Usman Other [facility] Other 05-10-2023 13:30-0400 Systolic blood pressure 110 mm[Hg] Javier Usman Other [facility] Other 04-21-2023 16:30-0400 Body height 160.02 cm Javier Usman Other [facility] Other 04-21-2023 16:30-0400 Body mass index (BMI) [Ratio] 26.21 kg/m2 Javier Usman Other [facility] Other 04-21-2023 16:30-0400 Body temperature 98 [degF] Javier Usman Other [facility] Other 04-21-2023 16:30-0400 Body weight 67.13 kg Javier Usman Other [facility] Other 04-21-2023 16:30-0400 Diastolic blood pressure 62 mm[Hg] Javier Usman Other [facility] Other 04-21-2023 16:30-0400 Respiratory rate 20 /min Javier Usman Other [facility] Other 04-21-2023 16:30-0400 SaO2% (BldA) [Mass fraction] 97 % Javier Usman Other [facility] Other 04-21-2023 16:30-0400 Systolic blood pressure 108 mm[Hg] Javier Usman Other [facility] Other 02-17-2023 14:12-0400 Blood Pressure Location Paul Cannony [facility] 02-17-2023 14:12-0400 Diastolic blood pressure 71 mm[Hg] Paul Lingmariaelenay [facility] 02-17-2023 14:12-0400 Heart rate 65 /min Paul Lingurany [facility] 02-17-2023 14:12-0400 SaO2% (BldA) [Mass fraction] 97 % Paul Sushilurany [facility] 02-17-2023 14:12-0400 Systolic blood pressure 152 mm[Hg] Paul Mourany [facility] 02-17-2023 13:47-0400 Blood Pressure Location Paul Mourany [facility] 02-17-2023 13:47-0400 Diastolic blood pressure 73 mm[Hg] Paul Mourany [facility] 02-17-2023 13:47-0400 Heart rate 63 /min Paul Mourany [facility] 02-17-2023 13:47-0400 SaO2% (BldA) [Mass fraction] 95 % Paul Mourany [facility] 02-17-2023 13:47-0400 Systolic blood pressure 157 mm[Hg] Paul Mourany [facility] 02-17-2023 11:57-0400 Heart rate 58 /min Paul Mourany [facility] 02-17-2023 11:57-0400 SaO2% (BldA) [Mass fraction] 94 % Paul Mourany [facility] 02-17-2023 11:56-0400 Diastolic blood pressure 78 mm[Hg] Paul Mourany [facility] 02-17-2023 11:56-0400 Mean blood pressure 99 mm[Hg] Paul Mourany [facility] 02-17-2023 11:56-0400 Systolic blood pressure 142 mm[Hg] Paul Mourany [facility] 02-17-2023 11:56-0400 Body temperature 96.8 [degF] Paul Mourany [facility] 02-17-2023 11:54-0400 Respiratory rate 16 /min Paul Mourany [facility] 01-11-2023 13:40-0400 Diastolic blood pressure 81 mm[Hg] Paul Mourany [facility] [place] 01-11-2023 13:40-0400 Heart rate 71 /min Paul Lingurany [facility] 01-11-2023 13:40-0400 SaO2% (BldA) [Mass fraction] 98 % Paul Lingurany [facility] 01-11-2023 13:40-0400 Systolic blood pressure 158 mm[Hg] Paul Mourany [facility] [place] 01-04-2023 10:34-0400 Blood Pressure Location Paul Mourany [facility] [place] 01-04-2023 10:34-0400 Diastolic blood pressure 78 mm[Hg] Paul Lingurany [facility] 01-04-2023 10:34-0400 Heart rate 69 /min Paul Lingurany [facility] [place] 01-04-2023 10:34-0400 SaO2% (BldA) [Mass fraction] 97 % Paul Lingurany [facility] [place] 01-04-2023 10:34-0400 Systolic blood pressure 147 mm[Hg] Paul Mourany [facility] 12-28-2022 16:29-0400 Body temperature 98.42 [degF] Paul Puneet [facility] 12-28-2022 16:29-0400 Diastolic blood pressure 79 mm[Hg] Paul Puneet [facility] 12-28-2022 16:29-0400 Heart rate 81 /min Paul Puneet [facility] 12-28-2022 16:29-0400 Respiratory rate 18 /min Paul Teixeira [facility] 12-28-2022 16:29-0400 SaO2% (BldA) [Mass fraction] 99 % Paul Teixeira [facility] 12-28-2022 16:29-0400 Systolic blood pressure 151 mm[Hg] Paul Teixeira [facility] 11-30-2022 14:45-0500 Body height 160.02 cm Javier Usman Other [facility] Other 11-30-2022 14:45-0500 Body mass index (BMI) [Ratio] 26.92 kg/m2 Javier Usman Other [facility] Other 11-30-2022 14:45-0500 Body temperature 97.6 [degF] Javier Usman Other [facility] Other 11-30-2022 14:45-0500 Body weight 68.95 kg Javier Usman Other [facility] Other 11-30-2022 14:45-0500 Diastolic blood pressure 64 mm[Hg] Javier Usman Other [facility] Other 11-30-2022 14:45-0500 Respiratory rate 20 /min Javier Usman Other [facility] Other 11-30-2022 14:45-0500 SaO2% (BldA) [Mass fraction] 97 % Javier Usman Other [facility] Other 02-20-2023 14:45-0500 Systolic blood pressure 124 mm[Hg] Javier Usman Other [facility] Other 11-12-2022 11:47-0500 Body temperature 97.88 [degF] Sanjeev Johnston [facility] 11-12-2022 11:47-0500 Diastolic blood pressure 81 mm[Hg] Sanjeev Preston [facility] 11-12-2022 11:47-0500 Heart rate 72 /min Sanjeev Johnston [facility] 11-12-2022 11:47-0500 Respiratory rate 19 /min Sanjeev Johnston [facility] 11-12-2022 11:47-0500 SaO2% (BldA) [Mass fraction] 97 % Sanjeev Johnston [facility] 11-12-2022 11:47-0500 Systolic blood pressure 153 mm[Hg] Sanjeev Johnston [facility] 10-20-2022 11:14-0500 Diastolic blood pressure 62 mm[Hg] Javier M Usman Work Phone: [facility] [employer] 600 DO Work Phone: 10-20-2022 11:14-0500 Systolic blood pressure 135 mm[Hg] Javier M Usman Work Phone: [facility] [employer] 600 DO Work Phone: 10-20-2022 11:00-0500 Body height 162.56 cm Javier M Usman Work Phone: [facility] [employer] 600 DO Work Phone: 10-20-2022 11:00-0500 Body mass index (BMI) [Ratio] 25.23 kg/m2 Javier M Usman Work Phone: [facility] DO Work Phone: 10-20-2022 11:00-0500 Body surface area Derived from formula 1.72 m2 Javier M Usman Work Phone: [facility] DO Work Phone: 10-20-2022 11:00-0500 Body weight 66.68 kg Javier M Usman Work Phone: [facility] DO Work Phone: 10-20-2022 11:00-0500 Heart rate 75 /min Javier M Usman Work Phone: [facility] DO Work Phone: 10-20-2022 11:00-0500 Systolic blood pressure 140 mm[Hg] Javier M Usman Work Phone: [facility] DO Work Phone: 09-15-2022 11:45-0500 Body height 160.02 cm Javier Usman Other [facility] Other 09-15-2022 11:45-0500 Body mass index (BMI) [Ratio] 27.45 kg/m2 Javier Usman Other [facility] Other 09-15-2022 11:45-0500 Body temperature 98.5 [degF] Javier Usman Other [facility] Other 09-15-2022 11:45-0500 Body weight 70.31 kg Javier Usman Other [facility] Other 09-15-2022 11:45-0500 Diastolic blood pressure 60 mm[Hg] Javier Usman Other [facility] Other 09-15-2022 11:45-0500 Respiratory rate 20 /min Javier Drapergles Other [facility] Other 09-15-2022 11:45-0500 SaO2% (BldA) [Mass fraction] 97 % Javiervincent Baileyes Other [facility] Other 09-15-2022 11:45-0500 Systolic blood pressure 126 mm[Hg] Javier Drapergles Other [facility] Other 05-11-2022 08:50-0400 Body temperature 97.7 [degF] Paul Teixeira [facility] 05-11-2022 08:50-0400 Diastolic blood pressure 75 mm[Hg] Paul Teixeira [facility] 05-11-2022 08:50-0400 Heart rate 71 /min Paul Teixeira [facility] 05-11-2022 08:50-0400 Respiratory rate 18 /min Paul Teixeira [facility] 05-11-2022 08:50-0400 SaO2% (BldA) [Mass fraction] 96 % Paul Teixeira [facility] 05-11-2022 08:50-0400 Systolic blood pressure 154 mm[Hg] Paul Teixeira [facility] 04-08-2022 10:58-0400 Body height 165.1 cm Javier Laine Mary Work Phone: [facility] 600 DO Work Phone: 04-08-2022 10:58-0400 Body mass index (BMI) [Ratio] 26.46 kg/m2 Javier Laine Usman Work Phone: [facility] DO Work Phone: 04-08-2022 10:58-0400 Body surface area Derived from formula 1.79 m2 Javier M Usman Work Phone: [facility] [employer] 600 DO Work Phone: 04-08-2022 10:58-0400 Body weight 72.12 kg Javier M Usman Work Phone: [facility] Work Phone: 04-08-2022 10:58-0400 Diastolic blood pressure 50 mm[Hg] Javier M Usman Work Phone: [facility] [employer] 600 DO Work Phone: 04-08-2022 10:58-0400 Heart rate 64 /min Javier M Usman Work Phone: [facility] DO Work Phone: 04-08-2022 10:58-0400 Systolic blood pressure 104 mm[Hg] Javier M Usman Work Phone: [facility] DO Work Phone: 03-16-2022 11:45-0400 Body height 160.02 cm Javier Usman Other [facility] Other 03-16-2022 11:45-0400 Body mass index (BMI) [Ratio] 29.23 kg/m2 Javier Usman Other [facility] Other 03-16-2022 11:45-0400 Body temperature 98.3 [degF] Javier Usman Other [facility] Other 03-16-2022 11:45-0400 Body weight 74.84 kg Javier Usman Other [facility] Other 03-16-2022 11:45-0400 Diastolic blood pressure 72 mm[Hg] Javier Usman Other [facility] Other 03-16-2022 11:45-0400 Respiratory rate 20 /min Javier Usman Other [facility] Other 03-16-2022 11:45-0400 SaO2% (BldA) [Mass fraction] 94 % Javier Usman Other [facility] Other 03-16-2022 11:45-0400 Systolic blood pressure 128 mm[Hg] Javier Usman Other [facility] Other 02-05-2022 12:15-0400 Body height 160.02 cm Javier Usman Other [facility] Other 02-05-2022 12:15-0400 Body mass index (BMI) [Ratio] 29.23 kg/m2 Javier Usman Other [facility] Other 02-05-2022 12:15-0400 Body temperature 98.7 [degF] Javier Usman Other [facility] Other 02-05-2022 12:15-0400 Body weight 74.84 kg Javier Usman Other [facility] Other 02-05-2022 12:15-0400 Diastolic blood pressure 62 mm[Hg] Javier Usman Other [facility] Other 02-05-2022 12:15-0400 Respiratory rate 20 /min Javier Usman Other [facility] Other 02-05-2022 12:15-0400 SaO2% (BldA) [Mass fraction] 95 % Javier Usman Other [facility] Other 02-05-2022 12:15-0400 Systolic blood pressure 122 mm[Hg] Javier Usman Other [facility] Other 01-31-2022 22:45-0400 Body temperature 98.6 [degF] Fletcher Livia [facility] 01-31-2022 22:45-0400 Diastolic blood pressure 68 mm[Hg] Fletcher Livia [facility] 01-31-2022 22:45-0400 Heart rate 80 /min Fletcher Livia [facility] 01-31-2022 22:45-0400 Mean blood pressure 87 mm[Hg] Fletcher Livia [facility] 01-31-2022 22:45-0400 Respiratory rate 17 /min Fletcher Livia [facility] 01-31-2022 22:45-0400 SaO2% (BldA) [Mass fraction] 99 % Fletcher Livia [facility] 01-31-2022 22:45-0400 Systolic blood pressure 125 mm[Hg] Fletcher Livia [facility] 01-31-2022 22:30-0400 Body temperature 98.24 [degF] Fletcher Livia [facility] 01-31-2022 22:30-0400 Diastolic blood pressure 80 mm[Hg] Fletcher Livia [facility] 01-31-2022 22:30-0400 Heart rate 76 /min Fletcher Livia [facility] 01-31-2022 22:30-0400 Mean blood pressure 93 mm[Hg] Fletcher Livia [facility] 01-31-2022 22:30-0400 Respiratory rate 18 /min Fletcher Livia [facility] 01-31-2022 22:30-0400 SaO2% (BldA) [Mass fraction] 97 % Fletcher Livia [facility] 01-31-2022 22:30-0400 Systolic blood pressure 120 mm[Hg] Fletcher Livia [facility] 01-31-2022 22:15-0400 Body temperature 98.6 [degF] Fletcher Livia [facility] 01-31-2022 22:15-0400 Diastolic blood pressure 86 mm[Hg] Fletcher Livia [facility] 01-31-2022 22:15-0400 Heart rate 79 /min Fletcher Livia [facility] 01-31-2022 22:15-0400 Mean blood pressure 102 mm[Hg] Fletcher Livia [facility] 01-31-2022 22:15-0400 Respiratory rate 17 /min Fletcher Livia [facility] 01-31-2022 22:15-0400 SaO2% (BldA) [Mass fraction] 99 % Fletcher Livia [facility] 01-31-2022 22:15-0400 Systolic blood pressure 135 mm[Hg] Fletcher Livia [facility] 11-18-2021 09:02-0500 Diastolic blood pressure 82 mm[Hg] Javier M Usman Work Phone: [facility] [address] DO Work Phone: 11-18-2021 09:02-0500 Systolic blood pressure 133 mm[Hg] Javier M Usman Work Phone: [facility] 600 DO Work Phone: 11-18-2021 08:34-0500 Body height 154.94 cm Javier M Usman Work Phone: [facility] 600 DO Work Phone: 11-18-2021 08:34-0500 Body mass index (BMI) [Ratio] 32.27 kg/m2 Javier M Usman Work Phone: [facility] 600 DO Work Phone: 11-18-2021 08:34-0500 Body surface area Derived from formula 1.77 m2 Javier M Usman Work Phone: [facility] 600 DO Work Phone: 11-18-2021 08:34-0500 Body weight 77.47 kg Javier M Usman Work Phone: [facility] 600 DO Work Phone: 11-18-2021 08:34-0500 Diastolic blood pressure 78 mm[Hg] Javier M Usman Work Phone: [facility] 600 DO Work Phone: 11-18-2021 08:34-0500 Heart rate 79 /min Javier M Usman Work Phone: [facility] 600 DO Work Phone: 11-18-2021 08:34-0500 Systolic blood pressure 146 mm[Hg] Javier M Usman Work Phone: [facility] 600 DO Work Phone: 10-14-2021 13:46-0500 Body height 162.56 cm Javier M Usman Work Phone: [facility] 250 DO Work Phone: 10-14-2021 13:46-0500 Body mass index (BMI) [Ratio] 28.87 kg/m2 Javier M Usman Work Phone: [facility] 250 DO Work Phone: 10-14-2021 13:46-0500 Body surface area Derived from formula 1.82 m2 Javier M Usman Work Phone: [facility] 250 DO Work Phone: 10-14-2021 13:46-0500 Body weight 76.3 kg Javier M Usman Work Phone: [facility] 250 DO Work Phone: 10-14-2021 13:46-0500 Diastolic blood pressure 82 mm[Hg] Javier M Usman Work Phone: [facility] 250 DO Work Phone: 10-14-2021 13:46-0500 Heart rate 87 /min Javier M Usman Work Phone: [facility] 250 DO Work Phone: 10-14-2021 13:46-0500 Systolic blood pressure 136 mm[Hg] Javier M Usman Work Phone: [facility] 250 DO Work Phone: 09-24-2021 11:44-0500 Body height 162.56 cm Javier M Usman Work Phone: [facility] 600 DO Work Phone: 09-24-2021 11:44-0500 Body mass index (BMI) [Ratio] 28.86 kg/m2 Javier M Usman Work Phone: [facility] 600 DO Work Phone: 09-24-2021 11:44-0500 Body surface area Derived from formula 1.82 m2 Javier M Usman Work Phone: [facility] 600 DO Work Phone: 09-24-2021 11:44-0500 Body weight 76.26 kg Javier M Usman Work Phone: [facility] 600 DO Work Phone: 09-24-2021 11:44-0500 Diastolic blood pressure 90 mm[Hg] Javier M Usman Work Phone: [facility] 600 DO Work Phone: 09-24-2021 11:44-0500 Heart rate 95 /min Javier M Usman Work Phone: [facility] 600 DO Work Phone: 09-24-2021 11:44-0500 Systolic blood pressure 143 mm[Hg] Javier M Usman Work Phone: [facility] 600 DO Work Phone: 09-15-2021 12:15-0500 Body height 160.02 cm Javier Usman Other [facility] Other 09-15-2021 12:15-0500 Body mass index (BMI) [Ratio] 30.47 kg/m2 Javier Usman Other [facility] Other 09-15-2021 12:15-0500 Body temperature 99.2 [degF] Javier Usman Other [facility] Other 09-15-2021 12:15-0500 Body weight 78.02 kg Javier Usman Other [facility] Other 09-15-2021 12:15-0500 Diastolic blood pressure 60 mm[Hg] Javier Usman Other [facility] Other 09-15-2021 12:15-0500 Respiratory rate 20 /min Javier Usman Other [facility] Other 09-15-2021 12:15-0500 SaO2% (BldA) [Mass fraction] 97 % Javier Usman Other [facility] Other 09-15-2021 12:15-0500 Systolic blood pressure 104 mm[Hg] Javier Usman Other [facility] Other 08-25-2021 13:00-0500 Body height 160.02 cm Aaron Norwood Other [facility] Other 08-25-2021 13:00-0500 Body mass index (BMI) [Ratio] 24.8 kg/m2 Aaron Norwood Other [facility] Other 08-25-2021 13:00-0500 Body temperature 98.4 [degF] Aaron Norwood Other [facility] Other 08-25-2021 13:00-0500 Body weight 63.5 kg Aaron Norwood Other [facility] Other 08-25-2021 13:00-0500 Diastolic blood pressure 80 mm[Hg] Aaron Españarer Other [facility] Other 08-25-2021 13:00-0500 SaO2% (BldA) [Mass fraction] 97 % Aaron Norwood Other [facility] Other 08-25-2021 13:00-0500 Systolic blood pressure 142 mm[Hg] Aaron Españarer Other [facility] Other 08-19-2021 12:30-0500 Body height 160.02 cm Eva Tantaylor Other [facility] Other 08-19-2021 12:30-0500 Body mass index (BMI) [Ratio] 24.8 kg/m2 Eva Tantaylor Other [facility] Other 08-19-2021 12:30-0500 Body temperature 97.6 [degF] Eva Tantaylor Other [facility] Other 08-19-2021 12:30-0500 Body weight 63.5 kg Eva Tantaylor Other [facility] Other 08-19-2021 12:30-0500 Diastolic blood pressure 70 mm[Hg] Eva Denisse Other [facility] Other 08-19-2021 12:30-0500 SaO2% (BldA) [Mass fraction] 97 % Eva Denisse Other [facility] Other 08-19-2021 12:30-0500 Systolic blood pressure 126 mm[Hg] Eva Salcedo Other [facility] Other Encounters Encounter Date Encounter Type Care Provider Facility Start: 09-20-2023 End: 09-20-2023 ambulatory Javier Usman Other [facility] Other Start: 09-20-2023 Office outpatient vi sit 25 minutes Javier Usman [facility] Start: 08-05-2023 End: 08-05-2023 ambulatory Javier Usman Other [facility] Other Start: 08-05-2023 Telephone encounter Javier Usman [facility] Start: 08-02-2023 End: 08-02-2023 ambulatory Javier Usman Other [facility] Other Start: 08-02-2023 Telephone encounter Javier Usman [facility] Start: 06-28-2023 End: 06-28-2023 ambulatory Javier Usman Other [facility] Other Start: 06-28-2023 Telephone encounter Javier Usman [facility] Start: 06-21-2023 End: 06-21-2023 ambulatory Javier Usman Other [facility] Other Start: 06-21-2023 Office outpatient vi sit 15 minutes Javier Usman [facility] Start: 06-17-2023 Chart Update Javier M Usman Work Phone: [facility] [address] [place] Work Phone: Start: 06-17-2023 Telephone encounter Javier Usman [facility] Start: 06-17-[address] Javier Mary Facility: Start: 06-17-2023 End: 06-18-2023 ambulatory Jones Rockwelli [place] [place]: 06-17-2023 End: 06-17-2023 Patient encounter procedure Jones Cuba [facility] Start: 06-05-2023 End: 06-06-2023 ambulatory Jones Rockwelli [place] [place] Start: 06-05-2023 End: 06-05-2023 Patient encounter procedure Jones Cuba [facility] Start: 06-02-2023 Office outpatient vi sit 25 minutes Javier M Usman Work Phone: [facility] 600 DO Work Phone: Start: 06-02-[address] Javier Mary Facility: Start: 05-10-2023 End: 05-10-2023 ambulatory Javier Usman Other [facility] Other Start: 05-10-2023 Office outpatient vi sit 15 minutes Javier Usman [facility] Start: 05-10-2023 Telephone encounter Javier Usman [facility] Start: 04-24-2023 End: 04-25-2023 ambulatory JAVIER M USMAN [place] [place] Start: 04-24-2023 End: 04-24-2023 Patient encounter procedure JAVIER M USMAN [facility] Start: 04-21-2023 End: 04-21-2023 ambulatory Javier Usman Other [place] [facility] Other Start: 04-21-2023 Office outpatient vi sit 25 minutes Javier Usman [facility] Start: 04-21-2023 Telephone encounter Javier Usman [facility] Start: 04-06-2023 End: 04-06-2023 ambulatory Javier Usman Other [facility] Other Start: 04-06-2023 Telephone encounter Javier Usman [facility] Start: 04-02-2023 End: 04-03-2023 ambulatory Jes Wolff Facility:[id number] Start: 04-02-2023 End: 04-02-2023 Off-Site [facility] Start: 03-23-2023 End: 03-24-2023 ambulatory Aaron HOLLIDAY Facility:CD:[id number] Start: 03-22-2023 End: 04-03-2023 ambulatory Aaron GARNER [place] [place] Start: 03-22-2023 End: 04-03-2023 Evaluation and management of inpatient Aaron HOLLIDAY [facility] Start: 03-20-2023 End: 03-22-2023 ambulatory Jag CARVER [place] [place] Start: 03-01-2023 End: 03-02-2023 ambulatory Paul Gomez Facility:[facility] Start: 02-17-2023 End: 02-17-2023 ambulatory Paul Gomez [place] [place] Start: 02-17-2023 End: 02-17-2023 Admission to same day surgery center Paul Gomez [facility] Start: 01-20-2023 End: 01-20-2023 ambulatory Javier Usman Other [facility] Other Start: 01-20-2023 Telephone encounter Javier Usman [facility] Start: 01-11-2023 End: 01-12-2023 ambulatory Paul Gomez Facility:[facility] Start: 01-11-2023 End: 01-11-2023 Patient encounter procedure Paul Gomez [facility] Start: 01-05-2023 End: 01-05-2023 ambulatory Javier Usman Other [facility] Other Start: 01-05-2023 Telephone encounter Javier Usman [facility] Start: 01-04-2023 End: 01-05-2023 ambulatory Paul Gomez [place] [place] Start: 01-04-2023 End: 01-05-2023 ambulatory Paul Gomez Facility:[facility] Start: 01-04-2023 End: 01-04-2023 Lab Drop off Paul Gomez [facility] Start: 01-04-2023 End: 01-09-2023 Pre-admission assessment Paul Gomez [facility] Start: 01-04-2023 End: 01-04-2023 Patient encounter procedure Paul Gomez [facility] Start: 12-28-2022 End: 12-28-2022 Emergency department patient visit Paul Teixeira [place] [place] Start: 12-28-2022 End: 12-28-2022 Emergency department patient visit Paul Teixeira [facility] Start: 12-28-2022 End: 12-28-2022 ambulatory Javier Usman Other [facility] Other Start: 12-28-2022 Telephone encounter Javier Usman [facility] Start: 12-05-2022 End: 12-05-2022 Emergency department patient visit Bruno Dowell [place] [place] Start: 12-04-2022 End: 12-04-2022 ambulatory Javier Suman Other [facility] Other Start: 12-04-2022 Telephone encounter Javier Usman [facility] Start: 11-30-2022 End: 11-30-2022 ambulatory Javier Usman Other [facility] Other Start: 11-30-2022 Office outpatient vi sit 25 minutes Javier Usman [facility] Start: 11-30-2022 Telephone encounter Javier Usman [facility] Start: 11-17-2022 End: 11-17-2022 ambulatory Javier Usman Other [facility] Other Start: 11-17-2022 Telephone encounter Javier Usman [facility] Start: 11-12-2022 End: 11-12-2022 ambulatory Javier Usman Other [facility] Other Start: 11-12-2022 Telephone encounter Javier Usman [facility] Start: 11-12-2022 End: 11-12-2022 Emergency department patient visit Sanjeev Johnston [place] [place] Start: 11-12-2022 End: 11-12-2022 Emergency department patient visit Sanjeev Johnston [facility] Start: 10-29-2022 End: 10-29-2022 ambulatory Javier Usman Other [facility] Other Start: 10-29-2022 Telephone encounter Javier Usman [facility] Start: 10-21-2022 AUDIT Javier M Usman Work Phone: [facility] 250 DO Work Phone: Start: 10-20-2022 Office outpatient vi sit 25 minutes Javier M Usman Work Phone: [facility] 600 DO Work Phone: Start: 10-20-[address] Jones Cuba Facility:[facility] Start: 10-05-2022 Chart Update Javier M Usman Work Phone: [facility] 600 DO Work Phone: Start: 09-28-2022 End: 09-29-2022 ambulatory Jones Cuba [place] [place] Start: 09-28-2022 End: 09-28-2022 Patient encounter procedure Jones Cuba [facility] Start: 09-15-2022 Rx Renewal Javier M Usman Work Phone: [facility] 250 DO Work Phone: Start: 09-15-2022 End: 09-15-2022 ambulatory Javier Usman Other [facility] Other Start: 09-15-2022 Office outpatient vi sit 25 minutes Javier Usman [facility] Start: 08-06-2022 Patient encounter procedure Javier M Usman Work Phone: [facility] DO Work Phone: Start: 07-28-2022 End: 07-28-2022 ambulatory Javier Usman Other [place] [employer] Other Start: 07-28-2022 Telephone encounter Javier Usman [facility] Start: 05-26-2022 End: 05-26-2022 ambulatory Javier Usman Other [facility] Other Start: 05-26-2022 Telephone encounter Javier Usman [facility] Start: 05-11-2022 End: 05-11-2022 Emergency department patient visit Paul Teixeira [facility] Start: 04-21-2022 End: 04-21-2022 ambulatory Javier Usman Other [place] [employer] Other Start: 04-21-2022 Telephone encounter Javier Usman [facility] Start: 04-08-2022 Office outpatient vi sit 25 minutes Javier M Usman Work Phone: [facility] 600 DO Work Phone: Start: 03-16-2022 End: 03-16-2022 ambulatory Javier Usman Other [facility] Other Start: 03-16-2022 Patient encounter procedure Javier Usman [facility] Start: 03-16-2022 Telephone encounter Javier Usman [facility] Start: 02-05-2022 End: 02-05-2022 ambulatory Javier Usman Other [place] [employer] Other Start: 02-05-2022 Office outpatient vi sit 15 minutes Javier Usman [facility] Start: 01-31-2022 End: 01-31-2022 Emergency department patient visit Fletcher Bhakta [facility] Start: 01-08-2022 End: 01-08-2022 ambulatory Javier Usman Other [facility] Other Start: 01-08-2022 Telephone encounter Javier Usman [facility] Start: 01-01-2022 End: 01-01-2022 ambulatory Javier Usman Other [facility] Other Start: 01-01-2022 Telephone encounter Javier Usman [facility] Start: 12-26-2021 End: 12-26-2021 ambulatory Javier Usman Other [facility] Other Start: 12-26-2021 Telephone encounter Javier Usman [facility] Start: 12-01-2021 End: 12-01-2021 ambulatory Javier Usman Other [facility] Other Start: 12-01-2021 Telephone encounter Javier Usman [facility] Start: 12-01-2021 Rx Renewal Javier M Usman [facility] Phone: [facility] DO Work Phone: Start: 11-18-2021 Office outpatient vi sit 25 minutes Javier M Usman Work Phone: [facility] 600 DO Work Phone: Start: 10-29-2021 Chart Update Javier M Usman Work Phone: [facility] 250 DO Work Phone: Start: 10-29-2021 End: 10-29-2021 ambulatory Javier M. Usman Facility:[facility] Start: 10-15-2021 Telephone encounter Javier M Rug gles Work Phone: [facility] 250 DO Work Phone: Start: 09-24-2021 Office outpatient vi sit 25 minutes Javier M Usman Work Phone: [facility] 600 DO Work Phone: Start: 09-19-2021 Telephone encounter Javier Draper gles Work Phone: -[facility] [address] [place] Work Phone: Start: 09-18-2021 End: 09-18-2021 ambulatory Javier Usman Other [facility] Other Start: 09-18-2021 Telephone encounter Javier Usman [facility] Start: 09-16-2021 End: 09-16-2021 ambulatory Javier Usman Other [facility] Other Start: 09-16-2021 Telephone encounter Javier Usman [facility] Start: 09-15-2021 End: 09-15-2021 ambulatory Javier Usman Other [facility] Other Start: 09-15-2021 Office outpatient vi sit 25 minutes Javier Usman [facility] Start: 09-15-2021 Telephone encounter Javier Usman [facility] Start: 08-25-2021 End: 08-25-2021 ambulatory Aaron Norwood Other [facility] Other Start: 08-25-2021 Office outpatient vi sit 15 minutes Aaron Norwood [facility] Vascular Surgery Start: 08-21-2021 End: 08-21-2021 ambulatory Eva Salcedo Other [facility] Other Start: 08-21-2021 Telephone encounter Eva Mason [employer] Start: 08-19-2021 End: 08-19-2021 ambulatory Eva Salcedo Other [facility] Other Start: 11-09-2021 Office outpatient vi sit 15 minutes Eva Salcedo [facility] Vascular Surgery Start: 12-13-2018 End: 12-19-2018 Patient encounter procedure JAVIER MARY Facility:[facility] Start: 12-08-2018 Encounter for preprocedural cardiovascular examination [facility] Start: 12-08-2018 Encounter for preprocedural laboratory examination [facility] Start: 12-06-2018 End: 12-07-2018 [facility] Start: 11-18-2018 End: 11-19-2018 Patient encounter procedure [facility] Encounter for preprocedural laboratory examination [facility] Patient encounter status Javier Mary Work Phone: [facility] 250 DO Work Phone: Procedures Date Procedure Procedure Detail Performing Clinician Start: 02-17-2023 Excision of cyst Garth ewelina Start: 12-03-2020 Echocardiography Start: 07-06-2019 Repair of hip Fletcher Whit ener Comment on above: left, bipolar Start: 02-19-2014 right carpal tunnel release Fletcher Livia Start: 03-22-2004 BONE SPURS FOOT 2 Fletcher Livia Comment on above: bilateral AAA repair Fletcher Livia achilles tendeon repair 3 No Livia Comment on above: left Arthroplasty of knee Javier Mary Work Phone: Comment on above: Left; Arthroplasty of knee Fletcher Wh itener Colonoscopy Fletcher Livia EXCISION CYST OF LEG Fletcher Wh itener H/O: artificial heart valve Fletcher Livia History of Aortic Va lve Replacement Javier Mary History of CABG Javier Usman Comment on above: x 3; History of coronary artery bypass grafting S/P CABG x 3 Javier M Usman Work Phone: History of coronary artery bypass grafting Hx of CABG Jes Wolff Ligation of varicose vein Se th M Usman Work Phone: open heart 4 Fletcher Livia Comment on above: vessel x2 Operative procedure on foot Javier M Usman Work Phone: Operative procedure on wrist Javier M Usman Work Phone: pig valve Fletcher Livia REMOVAL CYST ON HAND 5 Fletcher Livia Comment on above: LEFT Total colonoscopy Javier M Rug gles Work Phone: Comment on above: [id number]; Plan of Treatment Date Care Activity Detail Author Start: 01-11-2024 FUV, Provider: Jones [place], Status: Pen, Time: 10:10 AM FUV, Provider: Jones [place], Status: Pen, Time: 10:10 AM [facility] 600 DO Work Phone: Start: 04-08-2023 FUV, Provider: Jones [place], Status: Pen, Time: 11:10 AM FUV, Provider: Jones [place], Status: Pen, Time: 11:10 AM [facility] 600 DO Work Phone: Start: 04-01-2023 FUV, Provider: Jones [place], Status: Pen, Time: 11:10 AM FUV, Provider: Jones [place], Status: Pen, Time: 11:10 AM [facility] 250 DO Work Phone: Start: 10-20-2022 FUV, Provider: Jones [place], Status: Pen, Time: 11:00 AM FUV, Provider: Jones [place], Status: Pen, Time: 11:00 AM [facility] 600 DO Work Phone: Start: 04-08-2022 FUV, Provider: Jones [place], Status: Pen, Time: 10:30 AM FUV, Provider: Jones [place], Status: Pen, Time: 10:30 AM [facility] 600 DO Work Phone: Start: 11-18-2021 FUV, Provider: Jones [place], Status: Pen, Time: 8:50 AM FUV, Provider: Jones [place], Status: Pen, Time: 8:50 AM [facility] [address] [place] Work Phone: Start: 10-29-2021 SURGNONUH, Provider: Jones [place], Status: Pen, Time: 10:00 AM [facility], Provider: Jones [place], Status: Pen, Time: 10:00 AM [facility] 250 DO Work Phone: Start: 10-14-2021 EKG, Provider: SHIRA COREY SLITTER SCORER 1,[id number], Status: Pen, Time: 1:30 PM EKG, Provider: SHIRA COREY SLITTER SCORER 1,[id number], Status: Pen, Time: 1:30 PM [facility] 600 DO Work Phone: Start: 09-24-2021 FUV, Provider: Jones [place], Status: Pen, Time: 11:00 AM FUV, Provider: Jones [place], Status: Pen, Time: 11:00 AM [facility] [address] [place] Work Phone: Immunizations Immunization Date Immunization Notes Care Provider Magalis navarro 08-19-2023 influenza, injectabl e, quadrivalent, contains preservative Javier Usman Other [facility] Other 08-01-2022 influenza virus vaccine, unspecified formulation Paul Gomez [facility] 01-31-2022 tetanus toxoid, redu neal diphtheria toxoid, and acellular pertussis vaccine, adsorbed; Translations: [Boostrix (Tdap)] Fletcher Bhakta [facility] 07-24-2021 Do not use COVID-19 Pfizer 2 dose Javier Usman Other [facility] 07-24-2021 Fluzone High-Dose Quadrivalent 0.7 ML Intramuscular Suspension Prefilled Syringe Javier M Usman Work Phone: [facility] 600 DO Work Phone: 07-24-2021 influenza virus vaccine, unspecified formulation Paul Gomez [facility] 07-24-2021 influenza, injectabl e, quadrivalent, contains preservative Javier Usman Other [facility] Other 12-06-2020 Do not use COVID-19 Pfizer 2 dose Javier Usman Other [facility] Comment on above: Result Comment: 2022: [id number] 11-14-2020 Pfizer-BioNTech COVID-19 Vacc 30 MCG/0.3ML Intramuscular Suspension Javier M Usman Work Phone: [facility] 600 DO Work Phone: 11-13-2020 Do not use COVID-19 Pfizer 2 dose Javier Usman Other [facility] Comment on above: Result Comment: 2022: [id number] 08-11-2020 influenza virus vaccine, unspecified formulation Paul Gomez [facility] 08-11-2020 influenza, high dose seasonal, preservative-free Javier Jang Usman Work Phone: [facility] 600 DO Work Phone: 08-07-2020 influenza virus vaccine, unspecified formulation Paul Gomez [facility] 08-07-2020 influenza, injectabl e, quadrivalent, contains preservative Eva Ruttino Other [facility] [employer] Other 08-14-2019 pneumococcal polysaccharide vaccine, 23 valent Eva Ruttino Other [facility] 07-14-2019 influenza virus vaccine, unspecified formulation Paul Gomez [facility] 07-14-2019 influenza, injectabl e, quadrivalent, contains preservative Eva Ruttino Other [facility] Other 06-11-2019 influenza virus vaccine, unspecified formulation Javier Drapergles Work Phone: [facility] 06-22-2018 influenza virus vaccine, unspecified formulation Paul Gomez [facility] 06-22-2018 influenza, seasonal, injectable Eva Ruttino Other [facility] Other 06-11-2018 influenza virus vaccine, unspecified formulation Javier Drapergles Work Phone: [facility] 600 DO Work Phone: 08-11-2017 pneumococcal conjuga te vaccine, 13 valent Javier M Usman Work Phone: [facility] 600 DO Work Phone: 07-11-2017 influenza, high dose seasonal, preservative-free Javier M Usman Work Phone: [facility] 600 DO Work Phone: 07-09-2017 influenza, seasonal, injectable Eva Salcedo Other [facility] Other 07-09-2017 influenza virus vaccine, unspecified formulation Paul Mourany [facility] 08-15-2016 pneumococcal conjuga te vaccine, 13 valent Eva Salcedo Other [facility] 07-11-2016 influenza virus vaccine, unspecified formulation Javier M Usman Work Phone: [place] [address] DO Work Phone: 11-11-2015 influenza virus vaccine, unspecified formulation Paul Mourany [facility] 11-11-2015 influenza, injectabl e, quadrivalent, preservative free Javier M Usman Work Phone: [facility] 600 DO Work Phone: 11-11-2015 influenza, injectabl e, quadrivalent, contains preservative Eva Salcedo Other [facility] Other 09-04-2015 influenza virus vaccine, unspecified formulation Paul Mourany [facility] 09-04-2015 influenza, injectabl e, quadrivalent, preservative free Javier M Usman Work Phone: [place] [address] DO Work Phone: 09-04-2015 influenza, injectabl e, quadrivalent, contains preservative Eva Salcedo Other [facility] Other 07-11-2015 influenza virus vaccine, unspecified formulation Javier Mary Work Phone: -[facility] 600 DO Work Phone: Payers Date Payer Category Payer Private Health Insurance [id number] 2021 Medicare [id number] 2. [id number] 2021 Self-pay 1957 Medicare [id number] 1940 Unknown [id number] 2.16.84 0.1.517390.3.579.2.593 1940 Unknown [id number] 2.16.84 0.1.590490.3.579.2.593 1940 Unknown [id number] 2.16.84 0.1.478475.3.579.2.593 1942 Unknown [id number] 2.16.8 40.1.205741.3.579.2.727 1942 Unknown [id number] 2.16.8 40.1.689709.3.579.2.727 1942 Unknown [id number] 2.16.8 40.1.876056.3.579.2.727 1942 Unknown [id number] 2.16.8 40.1.152660.3.579.2.727 1942 Unknown [id number] 2.16.8 40.1.133646.3.579.2.727 1942 Unknown [id number] 2.16.8 40.1.950276.3.579.2.727 1942 Unknown [id number] 2.16.8 40.1.533089.3.579.2.727 1942 Unknown [id number] 2.16.8 40.1.502766.3.579.2.727 1942 Unknown [id number] 2.16.8 40.1.937550.3.579.2.727 1942 Unknown [id number] 2.16.8 40.1.096548.3.579.2.727 1942 Unknown [id number] 2.16.8 40.1.801697.3.579.2.727 1942 Unknown [id number] 2.16.8 40.1.286537.3.579.2.727 1942 Unknown [id number] 2.16.8 40.1.964756.3.579.2.727 1942 Unknown [id number] 2.16.8 40.1.278858.3.579.2.727 1942 Unknown [id number] 2.16.8 40.1.311059.3.579.2.727 1942 Unknown [id number] 2.16.8 40.1.538919.3.579.2.727 1942 Unknown [id number] 2.16. 840.1.379334.3.579.2.356 1942 Unknown [id number] 2.16. 840.1.282142.3.579.2.356 1942 Unknown [id number] 2.16. 840.1.859586.3.579.2.356 Medicare [id number] 2.1 6.840.1.023228.19 Unknown Unknown [id number] 2.16.8 40.1.629326.3.579.2.531 Social History Date Type Detail Facility Former smoker Former smoker [address] Work Phone: Comment on above: Quit over 20 years a go.; 1-2 cups coffee brendan y; Start: 04-04-2021 End: 01-04-2023 Tobacco smoking status Ex-smoker (finding) [facility] Sex Assigned At Female [facility] Other Tobacco [facility] Comment on above: denies Tobacco smoking status No Smoking Status Entered [facility] NEGATED: Highlighted row - - [facility] [facility] Work Phone: Functional Status Date Assessment Result Facility 02-17-2023 Functional Status N/A [facility] 01-04-2023 Functional Status N/A [facility] [place] 12-28-2022 Functional Status N/A [facility] 11-12-2022 Functional Status N/A [facility] 05-11-2022 Functional Status N/A [facility] NEGATED: Highlighted row Functional performance Functional status health issues are not documented Disease [facility] [facility] Work Phone: Mental Status Date Assessment Result Facility NEGATED: Highlighted row Cognitive function [Interpretation] Cognitive status health issues are not documented Disease [facility] [facility] Work Phone: Clinical Notes 08-25-2021 to 09-20-2023 Note Date & Type Note Facility 09-20-2023 Evaluation note Encounter Date Diagnosis Assessment Notes Sep, Impaired fasting blood sugar (ICD-10 - R73.01) Stable excellent control seen. Therefore no change. Continue to monitor diet. Sep, Pain in right knee (ICD-10 - M25.561) Pt to trial knee sleeve - also could consider injection again with Ortho.... They will contact us with update. We can get her back to orthopedics if need be. Sep, Varicose veins of bilateral lower extremities with pain (ICD-10 - I83.813) Obviously continue to follow-up with the vascular/vein specialist. [facility] Other 09-18-2023 Evaluation note* Encounter Date Diagnosis Assessment Notes Treatment Notes Treatment Clinical Notes Jun, Essential (primary) hypertension (ICD-10 - I10) [facility] Other 09-11-2023 Evaluation note* Encounter Date Diagnosis Assessment Notes Treatment Notes Treatment Clinical Notes Jun, Hematoma of left lower leg (ICD-10 - S80.12XA) Discussed with patient and son-in-law that I feel we will just simply continue to monitor as hematomas will be reabsorbed slowly by the body. I think we merely keep this well covered, to prevent any further bumping. Call with results. [facility] Other 09-07-2023 NoteEchocardiology Procedure Exam Date/Time Accession # Ordering Echo Transthoracic 06/17/2023 10:09 EDT [id number] Bereket GUILLEN, Jones Complete CPT code 70176 Reason for Exam (Echo Transthoracic Complete) I35.0 Report [facility] [place] [address] [place] [address] Adult Echocardiogram Report Name: [facility] Study Date: 06/17/2023 09:16 AM BP: 148/68 mmHg Patient Location: [facility] HR: 55 : 1940 Gender: Female Height: 64 in Age: 82 yrs Ethnicity: [facility] Weight: 143 lb Reason For Study: I35.0 BSA: 1.7 m2 History: AAA, Afib, murmur, HTN, CABG, AVR porcine Ordering Physician: Bereket^Jones Referring Physician: Jones Cuba Performed By: Gracie Martinez, CHAUNCEY Interpretation Summary The left ventricle is normal in size. There is normal left ventricular wall thickness. Ejection Fraction = 60-65%. There is a bioprosthetic aortic valve. Moderate valvular aortic stenosis. AV peak gradient is 43 mmHg. AV mean gradient is 21 mmHg. Aortic valve area is reduced at 1.2 cm^2. Procedure A complete two-dimensional transthoracic echocardiogram was performed (2D, M- mode, spectral and color flow Doppler). Study quality is good. Left Ventricle The left ventricle is normal in size. There is normal left ventricular wall thickness. Ejection Fraction = 60-65%. Left Atrium The left atrium is mildly dilated. Right Atrium The right atrium is mildly dilated. Echocardiology Report Right Ventricle The right ventricular systolic function is normal. Aortic Valve Trace aortic regurgitation. Moderate valvular aortic stenosis. AV peak gradient is 43 mmHg. AV mean gradient is 21 mmHg. Aortic valve area is reduced at 1.2 cm^2. There is a bioprosthetic aortic valve. Mitral Valve Mild thickening of the mitral valve leaflets. There is Trace mitral regurgitation. Tricuspid Valve Structurally normal tricuspid valve. There is mild tricuspid regurgitation. Pulmonic Valve The pulmonic valve is normal. Arteries The aortic root is normal in size. Venous The inferior vena cava is normal in size, and collapses normally with respiration. Effusion There is no pericardial effusion. There is no pleural effusion noted on this exam. MMode/2D Measurements & Calculations RVDd: 3.5 cm LVIDd: 5.1 cm FS: 32.0 % Ao root diam: 2.6 cm IVSd: 1.2 cm LVIDs: 3.4 cm EDV(Teich): 121.7 ml Ao root area: 5.5 cm2 LVPWd: 0.90 cm ESV(Teich): 48.9 ml LA dimension: 3.9 cm EF(Teich): 59.9 % LVOT diam: 2.0 cm LVLd ap4: 8.5 cm EDV(MOD-sp2): 137.0 ml SV(MOD-sp4): 87.5 ml LVOT area: 3.2 cm2 EDV(MOD-sp4): 122.0 ml ESV(MOD-sp2): 44.4 ml LVLs ap4: 6.4 cm EF(MOD-sp2): 67.6 % ESV(MOD-sp4): 34.5 ml EF(MOD-sp4): 71.7 % TAPSE: 2.4 cm IVC Diam: 1.6 cm RA A4Cs_phl: 24.2 cm2 RVIDd/LVIDd: 0.69 EF (MOD-bp): 70.2 % LA Vol Index: 37.6 ml/m2 Doppler Measurements & Calculations MV E max vicente: 104.0 cm/sec MV dec time: 0.18 sec Ao V2 max: 328.2 cm/sec LV V1 max P.4 mmHg MV A max vicente: 110.1 cm/sec Ao max P.1 mmHg LV V1 mean P.9 mmHg MV E/A: 0.94 Ao V2 mean: 214.1 cm/sec LV V1 max: 126.8 cm/sec Lat Peak E' Vicente: 8.5 cm/sec Ao mean P.3 mmHg LV V1 mean: 93.4 cm/sec Echocardiology Report E/E' Lat: 12.3 Ao V2 VTI: 83.7 cm LV V1 VTI: 34.3 cm Med Peak E' Vicente: 4.2 cm/sec DIONISIO(I,D): 1.3 cm2 E/E' Med: 24.5 DIONISIO(V,D): 1.2 cm2 SV(LVOT): 110.3 ml TR max vicente: 284.7 cm/sec RAP systole: 3.0 mmHg AV VR: 0.39 TR max P.4 mmHg DIONISIO(VTI)/BSA_phl: 0.76 RVSP(TR): 35.4 mmHg FINAL REPORT Dictated: 06/17/2023 9:16 am Ricardo Salamanca MD Signed (Electronic Signature): 06/17/2023 2:40 pm Signed by: Ricardo Salamanca MD Transcribed by: SC Technologist: [facility]07-31-2023 Evaluation note* Encounter Date Diagnosis Assessment Notes Treatment Notes Treatment Clinical Notes Apr, Skin tear of right hand without complication, initial encounter (ICD-10 - S61.411A) Patient and son-in-law are given some Vaseline gauze to use. Keep this area clean and dry. Monitor for healing. Call with any change. [facility] Other 07-15-2023 Evaluation + Plan note Diagnostic Tests Pending * Folate Level 04/24/23 * T3 Free 04/24/23 * Vitamin B12 Level 04/24/23 [facility]07-12-2023 Evaluation note* Encounter Date Diagnosis Assessment Notes Treatment Notes Treatment Clinical Notes Apr, Memory changes (ICD-10 - R41.3) Lengthy succussion with patient today that I would like to pursue some blood work, so that it would be completed by the time she sees neurology. I am interested to see what neurology thinks moving forward. Apr, Closed nondisplaced fracture of pelvis, unspecified part of pelvis, initial encounter (ICD-10 - S32.9XXA) Lengthy discussion with patient today as well as with daughter. It does not appear that orthopedics is suggesting any sort of follow-up. And patient seems to be healing well. Really nothing further to do at this time. Apr, Vitamin D deficiency (ICD-10 - E55.9) We will call with results. Apr, Constipation, unspecified constipation type (ICD-10 - K59.00) I would very much suggest using MiraLAX, as this will cause no change to her bowel function. I hesitate to have them use any sort of true laxative. I would like them to try a half a cap every day and then adjust the dose accordingly. They will call with results. [facility] Other 06-13-2023 NoteHOSPITAL REGULATIONS: All Positive and Important Negative Findings Shall Be Recorded Date of Consultation: 03/21/2023 Attending Physician: Jag Carver D.O. Consulting Physician: Marquise Mesa D.O. ORTHOPEDIC CONSULTATION REASON FOR CONSULTATION: Left hemipelvic fractures status post fall. HISTORY: Chani is an 82-year-old white female known to myself who presents with evaluation of the above. She did have a mechanical fall yesterday at her home. She was coiling up a house after wateringher grass when she suddenly fell. No preceding dizziness, lightheadedness, no head trauma or loss of consciousness. She did have difficulty with pain and was unable to move. She was brought to [facility] where she is found to have superior inferior pubic rami fracture on the left. Due to her inability to ambulate and intractable pain, she was admitted to the Hospitalist Service and Orthopedics,myself, consulted for evaluation. PAST MEDICAL HISTORY: Her past medical history is significant for coronary artery disease with bypass grafting, aortic valve replacement, left breast abscess, hypertension, hyperlipidemia, subdural hematoma, abdominal aortic aneurysm, anxiety, atrial fibrillation, venous insufficiency. PAST SURGICAL HISTORY: Left hip bipolar hemiarthroplasty, carpal tunnel release, cyst excision, abdominal aortic aneurysm repair, Achilles tendon, coronary artery bypass grafting, aortic valve replacement, knee replacement, cyst removal on the hand, colonoscopy. MEDICATIONS: Please see the list. Of note, the patient is normally on Eliquis. ALLERGIES: Please see the list. PSYCHOSOCIAL HISTORY: The patient does live by herself. She is . She does have family close by. No smoking, no alcohol. PHYSICAL EXAMINATION: Her examination here today reveals the patient to be pleasant, no acute distress. She answers all questions appropriately. Temperature max 36.9, blood pressure 157/88, pulse 76,her respirations 18. She is saturating 93% on room air. Her weight is 154 pounds. Her examination of the left hip reveals tenderness more posteriorly towards the ischial tuberosity. No significant pain at the pubic symphysis. Nothing over the lumbar spine. Pain with some log roll on the left side, nothing on the right. Her lower extremity neurocirculatory status is intact and calf and thigh are otherwise supple. IMAGING: Her x-ray does show a bipolar hemiarthroplasty with a cerclage cable around the neck area.No evidence of fracture is delineated on this study, this is AP pelvis hip area. She does have osteopenia, likely clinical osteoporosis. CT of the pelvis does show an inferior superior pubic rami fracture, essentially nondisplaced in nature. IMPRESSION: Left pathologic superior inferior pubic rami fracture secondary to osteopenia, likely clinical osteoporosis. TREATMENT PLAN: 1. The findings are discussed. This is an individual who did have osteopenia back in 2019. She has not had a bone density since. 2. We would recommend mobilization with physical therapy. We did discuss self- limiting nature of this. 3. Discharge planning underway. 4. Analgesia. 5. She is weight-bearing as tolerated and indicated on the therapy notes. 6. All questions are otherwise answered. 7. She will need a repeat x-ray at four weeks. 8. We will plan updated bone density study in the outpatient setting after she does convalesce for this fracture pattern. Kaitlyn Menard Dictated: 03/21/2023 [id number] Transcribed: 03/22/2023 cc:Javier Mary D.O.[facility] HealthcareComment on above:Result Comment: Electronically Signed By: Marquise Mesa DO\.br\Date and Time Signed: 03/23/23 06:51 [id number] NoteDAILY PROGRESS NOTE: 03/22/2023 HISTORY: Chani is seen here today for repeat evaluation of her left hemipelvic fractures. She is doing okay, no new complaints, no new symptomatology. Physical therapy did work with her yesterday and ambulated six feet with a front-wheeled walker. She has three steps at home. Recommendation for fci is made. Her examination here today reveals temperature max 36.6, vital signs otherwise unremarkable. Examination of the left hip reveals a little bit of discomfort with log roll, otherwise benign. No limb length inequality. Neurocirculatory status is grossly intact bilaterally. LABORATORY DATA: Labs reveal an hemoglobin and hematocrit of 11.6 and 34. Remainder of her labs essentially unremarkable. IMPRESSION: 1. Left hemipelvic fractures. 2. Status post fall. TREATMENT PLAN: 1. The findings were discussed. Will continue to mobilize with physical therapy. 2. Discharge planning underway. 3. All of her questions are answered. 4. She will need a repeat x-ray four weeks post fracture. This will be done in the outpatient setting with myself. 5. We will follow from the periphery. Kaitlyn Menard Dictated: 03/22/2023 [id number] Transcribed: 03/22/2023Uk HealthcareComment on above:Result Comment: Electronically Signed By: Marquise Mesa DO\.br\Date and Time Signed: 03/23/23 06:51 [id number] NoteAdmission and Discharge Information Admitting Physician - Jag CARVER DO Consulting Physician - Marquise Mesa DO Admitting Diagnoses: Discharge Order Date Discharge Patient - Ordered -- 03/22/23 12:56:00 EDT Discharge Diagnoses 1. Fracture of inferior pubic ramus, 03/20/2023 2. Fracture of superior pubic ramus, 03/20/2023 3. Left hip pain, 03/21/2023 4. Anemia, 03/21/2023 5. H/O aortic valve replacement with porcine valve, 03/21/2023 6. Coronary artery disease, 03/21/2023 7. Elevated BUN, 03/21/2023 8. Paroxysmal atrial fibrillation, 03/21/2023 9. Hypertension, 03/21/2023 10. Hyperlipidemia, 03/21/2023 11. Anxiety, 03/21/2023 Fall, 03/20/2023 Hip pain-swelling, 03/20/2023 Procedure History Excision of cyst (02/17/2023), Hip arthroplasty (07/06/2019), right carpal tunnel release (02/19/2014), BONE SPURS FOOT (03/22/2004), AAA repair, achilles tendeon repair, Colonoscopy, EXCISION CYST OF LEG, History of artificial heart valve.., Knee replacement, open heart, pig valve, REMOVAL CYST ONHAND. Hospital Course 1. Fracture of inferior pubic ramus (S32.599A: Other specified fracture of unspecified pubis, initial encounter for closed fracture) Seen and examined Clinically better No pain Had confusion last night due to Morphine PT/OT Social service consult DC to TCU 2. Fracture of superior pubic ramus (S32.519A: Fracture of superior rim of unspecified pubis, initial encounter for closed fracture) See above 3. Left hip pain (M25.552: Pain in left hip) X-ray: No fracture PT/OT Social service consult DC to TCU 4. Anemia (D64.9: Anemia, unspecified) H/H are stable 5. H/O aortic valve replacement with porcine valve (Z95.3: Presence of xenogenic heart valve) Stable 6. Coronary artery disease (I25.10: Atherosclerotic heart disease of [place] coronary artery withoutangina pectoris) No chest pain ASA daily Lipitor daily 7. Elevated BUN (R79.9: Abnormal finding of blood chemistry, unspecified) Lasix was held BMP daily 8. Paroxysmal atrial fibrillation (I48.0: Paroxysmal atrial fibrillation) Patient was in sinus rhythm per EKG. Resume Lopressor BID Resume Eliquis 9. Hypertension (I10: Essential (primary) hypertension) Resume Norvasc and Lisinopril 10. Hyperlipidemia (E78.5: Hyperlipidemia, unspecified) Resume Lipitor daily 11. Anxiety (F41.9: Anxiety disorder, unspecified) Services Consulted Consult to Orthopedics - Ordered -- 03/21/23 0:33:00 EDT, Pubic rami fracture, Marquise Mesa DO, Consult and Co-manage Physical Exam Constitutional: no fever, no chills, no sweats, no weakness Skin: no Jaundice, no rash, no lesions, nopetechiae ENMT: no ear pain, no sore throat, no congestion, no hoarseness Respiratory: no shortness of breath, no cough, no orthopnea, no wheezing Cardiovascular: no chest pain, no palpitations, no edema Gastrointestinal: no nausea, no vomiting, no diarrhea, no GI bleeding Genitourinary: no dysuria, no hematuria, no discharge, no pain Musculoskeletal: no back pain, no trauma Neurologic: no headache, no dizziness, no numbness, no weakness Psychiatric: no sleeping problems, no irritability, no mood swings/depression. Heme/Lymph: no bleeding tendency, no bruising tendency, no petechiae, no swollen nodes Allergy/Immunologic: no seasonal allergies, no food allergies, no recurrent infections, no impairedimmunity Additional ROS info: Except as noted in the above Review of Systems and in the History of Present Illness all other systems have been reviewed and are negative or noncontributory. Laboratory Results ABO/Rh (03/20/2023) ABO/Rh - O POS Alcohol Level (03/20/2023) Ethanol Lvl - <5 mg/dL Antibody Screen (03/20/2023) ABSC Gel Interp - Negative Automated Diff (03/21/2023) Neutro Auto - 65.9 % Lymph Auto - 22.4 % Travis Auto - 9.3 % Eos Auto - 1.6 % Basophil Auto - 0.8 % Neutro Absolute - 3.5 E9/L Lymph Absolute - 1.2 E9/L Travis Absolute - 0.5 E9/L Eos Absolute - 0.1 E9/L Basophil Absolute - 0.0 E9/L BMP (03/21/2023) Glucose Lvl - 112 mg/dL BUN - 30 mg/dL Creatinine - 0.8 mg/dL BUN/Creat Ratio - 38 Sodium Lvl - 142 mmol/L Potassium Lvl - 3.6 mmol/L Chloride - 111 mmol/L CO2 - 28 mmol/L AGAP - 7 mEq/L Calcium Lvl - 9.4 mg/dL BMP (03/20/2023) Glucose Lvl - 104 mg/dL BUN - 40 mg/dL Creatinine - 1.1 mg/dL BUN/Creat Ratio - 36 Sodium Lvl - 142 mmol/L Potassium Lvl - 3.7 mmol/L Chloride - 106 mmol/L CO2 - 29 mmol/L AGAP - 11 mEq/L Calcium Lvl - 9.6 mg/dL CBC w/ Auto Diff (03/21/2023) WBC - 5.3 E9/L RBC - 3.9 E12/L Hgb - 11.6 gm/dL Hct - 34.0 % MCV - 87.9 fL MCH - 30.1 pg MCHC - 34.2 gm/dL RDW - 13.4 % Platelet - 171.0 E9/L MPV - 7.8 fL eGFR (03/21/2023) eGFR - 74 mL/min/1.73 m2 Hepatic Function Panel (03/20/2023) Alk Phos - 76 Int._Unit/L ALT - 18 Int._Unit/L AST - 18 Int._Unit/L Total Protein - 6.7 gm/dL Albumin Lvl (more content not included)...[facility] HealthcareComment on above:Result Comment: Electronically Signed By: TWIN GUILLEN, Silvia\.br\Date and Time Signed: 03/22/23 13:[id number] NoteCRM entered the room to discuss dc planing. PCP, DME and insurance discussed. Patient is alert and involved in plan of care. Contact information provided and whiteboard updated. Pt's dtr will transport. Pt has been accepted to [facility], pending precert. No further needs. Ant dc TBD. CRM to follow. Precert came through. Pt will dc to room 603, now TCU.Uk HealthcareComment on above:Result Comment: Electronically Signed By: Luanne Maddox\.br\Date and Time Signed: 03/22/23 12:43 [id number] NotePT evaluation completed with an AM-PAC six clicks score of 17/24. Pt. requires Min A for bed mobility and transfers. Pt. able to ambulate 6 ft. this date with FWW and constant CGA. Pt. requires Mod verbal cueing for appropriate use and motor sequencing with FWW. Pt. has 3 steps to enter home with unilateral hand rail which presents barrier for safe discharge home at this time. Recommend SNF for further rehab upon discharge once medically stable. PT will continue to follow daily and make appropriate recommendations.[facility]06-11-2023 NoteChief Complaint Watering lawn and slipped on wet grass and fell. Denies feeling illl prior. (L) hip pain. Hit back on head on ground, no LOC. On Eliquis. Able to bear weight, but painful. History of Present Illness [id number] patient is a very pleasant active 82-year-old white female with a past medical history significant for coronary artery disease patient had undergone in 2014 coronary artery bypass grafting in addition to porcine aortic valve replacement for aortic stenosis. Electronic medical records suggestthat patient has had a history of abdominal aortic aneurysm however when addressing this with patient patient's daughter who is present at the bedside suggest that Dr. Cuba the principal hardware architect with whom she had an appointment within 2 weeks had found this and that it was between her lungs . Veronicais describing thoracic aortic aneurysm she is suggested was around the time she had open heart surgery is uncertain if she required and had a repair. From review of the records unable to further clarify. I reviewed CT scan of the chest from June of the year that she had presented after a fall there was no mention of any thoracic aneurysm. Chart does suggest a history of atrial fibrillation the patient and patient's daughter were on aware of any heart rhythm abnormality however prior med rec suggest she had been on Eliquis and await confirmation of home meds. Patient did have a fall in June 2019 and she developed a small subdural versus subarachnoid falx hemorrhage. She did not require any operative intervention. Review of the chart at that time she had only been on aspirin. Patient does have a history of hypertension, hyperlipidemia, anxiety and a history of left breast abscess. Patient presented to the emergency department with below Patient states the day of presentation she had been out watering her garden. After she finished sheturned to go into the house states there was unevenness or a step-off from her lawn and the grass was wet. She states she slipped and fell on her left hip. She denied hitting her head. She denies anypreceding dizziness, vertigo, palpitations, diaphoresis, chest pain, shortness of breath, headache,focal motor or sensory deficits. She states she developed left hip pain pain in the area of her prior prosthesis. She states she could not get up because of the pain and neighbor saw her came over grabbed her from behind and assisted her to her feet. She attempted to walk a couple of steps but she was having significant left hip pain and was unable therefore to ambulate on her own. She presented to the emergency room appropriate imaging was performed demonstrating left inferior and superior pubic ramus fracture. The emergency foreign languages department chair orthopedic service was consulted and the case was discussed. Review of Systems Constitutional: no fever, no chills, no sweats, no weakness Skin: no Jaundice, no rash, no lesions, nopetechiae ENMT: no ear pain, no sore throat, no congestion, no hoarseness Respiratory: no shortness of breath, no cough, no orthopnea, no wheezing Cardiovascular: no chest pain, no palpitations, no edema Gastrointestinal: no nausea, no vomiting, no diarrhea, no GI bleeding Genitourinary: no dysuria, no hematuria, Musculoskeletal: no back pain, moderate trauma, left lateral hip pain Neurologic: no headache, no dizziness, no numbness, no weakness Psychiatric: no sleeping problems, no irritability, no mood swings/depression. Heme/Lymph: no bleeding tendency, no bruising tendency, no petechiae, no swollen nodes Allergy/Immunologic: no seasonal allergies, no food allergies, no recurrent infections, no impairedimmunity Additional ROS info: Except as noted in the above Review of Systems and in the History of Present Illness all other systems have been reviewed and are negative or noncontributory. Scoring Dior Fall Risk Score: 60 (03/20/23) Physical Exam Vitals & Measurements T: 36.6 ?C(Oral) TMIN: 36.6 ?C(Oral) TMAX: 36.9 ?C(Oral) HR: 74(Monitored) RR: 16 BP: 125/73 SpO2: 93% HT: 165 cm WT: 71.8 kg General: alert, no acute distress while laying down with a head of bed at 30 degrees from the horizontal Skin: warm, dry Head: no trauma, normocephalic Neck: Trachea midline, no adenopathy, no tenderness Eye: normal conjunctiva, sclera clear ENMT: TM's clear, oral mucosa moist, no pharyngeal erythema or exudate Cardiovascular: RUE 3/6 systolic ejection murmur across precordium, regular rate and rhythm, patient did have some mild pitting edema which patient and patient's daughter states is chronic and at baseline Respiratory: Lungs CTA, no rales rhonchi or wheeze, respirations non labored Chest wall: no deformity. Gastrointestinal: soft, non distended, no tenderness, no guarding. Osteopathic exam - Pt was examined in my reclined position avoided having her flex at the hip because of her orthopedic injury Pt with suspected lumbar lordosis, increased thoracic kyphosis. scoliosis. Extremities: no (more content not included)...[facility] on above:Result Comment: Electronically Signed By: Jag CARVER DO.meme\Date and Time Signed: 03/21/23 03:47 [id number] Note [id number]:127[facility] 02-17-2023 Hospital Discharge instructions Patient Education 02/17/2023 14:26:03 Excision of Skin Lesions, Care After Excision of Skin Lesions, Care After The following information offers guidance on how to care for yourself after your procedure. Your health care provider may also give you more specific instructions. If you have problems or questions, contact your health care provider. What can I expect after the procedure? After your procedure, it is common to have: Soreness or mild pain. Some redness and swelling. Follow these instructions at home: Excision site care Follow instructions from your health care provider about how to take care of your excision site. Make sure you: ?Wash your hands with soap and water for at least 20 seconds before and after you change your bandage (dressing). If soap and water are not available, use hand driver salesman. ?Change your dressing as told by your health care provider. ?Leave stitches (sutures), skin glue, or adhesive strips in place. These skin closures may need to stay in place for 2 weeks or longer. If adhesive strip edges start to loosen and curl up, you may trim the loose edges. Do not remove adhesive strips completely unless your health care provider tells you to do that. Check the excision area every day for signs of infection. Watch for: ?More redness, swelling, or pain. ?Fluid or blood. ?Warmth. ?Pus or a bad smell. Keep the site clean, dry, and protected for at least 48 hours. For bleeding, apply gentle but firm pressure to the area using a folded towel for 20 minutes. Do not take baths, swim, or use a hot tub until your health care provider approves. Ask your healthcare provider if you may take showers. You may only be allowed to take sponge baths. General instructions Take jfam-xhn-crhrdja and prescription medicines only as told by your health care provider. Follow instructions from your health care provider about how to minimize scarring. Scarring should lessen over time. Avoid sun exposure until the area has healed. Use sunscreen to protect the area from the sun after it has healed. Avoid high-impact exercise and activities until the sutures are removed or the area heals. Keep all follow-up visits. This is important. Contact a health care provider if: You have more redness, swelling, or pain around your excision site. You have fluid or blood coming from your excision site. Your excision site feels warm to the touch. You have pus or a bad smell coming from your excision site. You have a fever. You have pain that does not improve in 2 3 days after your procedure. Get help right away if: You have bleeding that does not stop with pressure or a dressing. Your wound opens up. Summary Take cmfz-hqg-uxfpuij and prescription medicines only as told by your health care provider. Change your dressing as told by your health care provider. Contact a health care provider if you have redness, swelling, pain, or other signs of infection around your excision site. Keep all follow-up visits. This is important. This information is not intended to replace advice given to you by your health care provider. Make sure you discuss any questions you have with your health care provider. Document Revised: 04/28/2022 Document Reviewed: 04/28/2022 [employer] Patient Education 2022 [employer]. Follow Up Care 01/13/2023 08:38:17 With:Paul Gomez Address: [facility] [address] [place] [id number]- [phone] Business (1) When:02/27/2023 14:24:06 Comments:Call for followup appointment [facility]04-12-2023 Evaluation note* Encounter Date Diagnosis Assessment Notes Treatment Notes Treatment Clinical Notes Jan, Dysfunction of both eustachian tubes (ICD-10 - H69.83) [facility] Other 04-11-2023 Note [id number]:127[facility] 01-13-2023 NoteMicrobiology PROCEDURE: Wound Culture [R1] SOURCE: Abscess BODY SITE: Breast COLLECTED DATE/TIME: 01/04/2023 11:52 EDT RECEIVED DATE/TIME: 01/04/2023 14:37 EDT START DATE/TIME: 01/04/2023 14:37 EDT FREE TEXT SOURCE: Patricia GUILLEN, Paul Gomez MD, Paul Walker AMENDED REPORTS Amended Report [] Verified Date/Time: 01/13/2023 15:17 EDT 1+ Peptostreptococcus species Presumptive isolated. No standards available for susceptibility testing on this organism. STAINS Gram Stain Report [] Verified Date/Time: 01/05/2023 07:06 EDT Occasional White Blood Cells Occasional epithelial cells Rare Gram Positive Cocci Performing Locations R1: This test was performed at: [facility], [address] [place] [address], [id number] , , ImcymjUk HealthcareComment on above:Performed By: #### [id number], [id number], [id number], [id number] #### [facility] [address] [place] [address] [id number] Hospital Discharge instructions Patient Education 01/11/2023 14:09:30 Obesity, Adult Obesity, Adult Obesity is the condition of having too much total body fat. Being overweight or obese means that your weight is greater than what is considered healthy for your body size. Obesity is determined by a measurement called BMI. BMI is an estimate of body fat and is calculated from height and weight. Foradults, a BMI of 30 or higher is considered obese. Obesity can lead to other health concerns and major illnesses, including: Stroke. Coronary artery disease (CAD). Type 2 diabetes. Some types of cancer, including cancers of the colon, breast, uterus, and gallbladder. Osteoarthritis. High blood pressure (hypertension). High cholesterol. Sleep apnea. Gallbladder stones. Infertility problems. What are the causes? Common causes of this condition include: Eating daily meals that are high in calories, sugar, and fat. Being born with genes that may make you more likely to become obese. Having a medical condition that causes obesity, including: ?Hypothyroidism. ?Polycystic ovarian syndrome (PCOS). ?Binge-eating disorder. ?[place] syndrome. Taking certain medicines, such as steroids, antidepressants, and seizure medicines. Not being physically active (sedentary lifestyle). Not getting enough sleep. Drinking high amounts of sugar-sweetened beverages, such as soft drinks. What increases the risk? The following factors may make you more likely to develop this condition: Having a family history of obesity. Being a woman of descent. Being a man of descent. Living in an area with limited access to: ?[place], recreation centers, or sidewalks. ?Healthy food choices, such as grocery stores and [employer] markets. What are the signs or symptoms? The main sign of this condition is having too much body fat. How is this diagnosed? This condition is diagnosed based on: Your BMI. If you are an adult with a BMI of 30 or higher, you are considered obese. Your waist circumference. This measures the distance around your waistline. Your skinfold thickness. Your health care provider may gently pinch a fold of your skin and measureit. You may have other tests to check for underlying conditions. How is this treated? Treatment for this condition often includes changing your lifestyle. Treatment may include some or all of the following: Dietary changes. This may include developing a healthy meal plan. Regular physical activity. This may include activity that causes your heart to beat faster (aerobicexercise) and strength training. Work with your health care provider to design an exercise program that works for you. Medicine to help you lose weight if you are unable to lose 1 pound a week after 6 weeks of healthy eating and more physical activity. Treating conditions that cause the obesity (underlying conditions). Surgery. Surgical options may include gastric banding and gastric bypass. Surgery may be done if: ?Other treatments have not helped to improve your condition. ?You have a BMI of 40 or higher. ?You have life-threatening health problems related to obesity. Follow these instructions at home: Eating and drinking Follow recommendations from your health care provider about what you eat and drink. Your health care provider may advise you to: ?Limit fast food, sweets, and processed snack foods. ?Choose low-fat options, such as low-fat milk instead of whole milk. ?Eat 5 or more servings of fruits or vegetables every day. ?Eat at home more often. This gives you more control over what you eat. ?Choose healthy foods when you eat out. ?Learn to read food labels. This will help you understand how much food is considered 1 serving. ?Learn what a healthy serving size is. ?Keep low-fat snacks available. ?Limit sugary drinks, such as soda, fruit juice, sweetened iced tea, and flavored milk. Drink enough water to keep your urine pale yellow. Do not follow a fad diet. Fad diets can be unhealthy and even dangerous. Physical activity Exercise regularly, as told by your health care provider. ?Most adults should get up to 150 minutes of moderate-intensity exercise every week. ?Ask your health care provider what types of exercise are safe for you and how often you should exercise. Warm up and stretch before being active. Cool down and stretch after being active. Rest between periods of activity. Lifestyle Work with your health care provider and a dietitian to set a weight-loss goal that is healthy and reasonable for you. Limit your screen time. Find ways to reward yourself that do not involve food. Do not drink alcohol if: ?Your health care provider tells you not to drink. ?You are , may be , or are planning to become . If you drink alcohol: ?Limit how much you use to: ?0 1 drink a day for women. ?0 2 drinks a day for men. ?Be aware of how much alcohol is in your drink. In the [place] one drink equals one 12 oz bottle of beer (355 mL), one 5 oz glass of wine (148 mL), or one 1 oz glass of hard liquor (44 mL). General instructions Keep a weight-loss journal to keep track of the food you eat and how much exercise you get. Take upnl-owg-vdrskfh and prescription medicines only as told by your health care provider. Take vitamins and supplements only as told by your health care provider. Consider joining a support group. Your health care provider may be able to recommend a support group. Keep all follow-up visits as told by your health care provider. This is important. Contact a health care provider if: You are unable to meet your weight loss goal after 6 weeks of dietary and lifestyle changes. Get help right away if you are having: Trouble breathing. Suicidal thoughts or behaviors. Summary Obesity is the condition of having too much total body fat. Being overweight or obese means that your weight is greater than what is considered healthy for your body size. Work with your health care provider and a dietitian to set a weight-loss goal that is healthy and reasonable for you. Exercise regularly, as told by your health care provider. Ask your health care provider what types of exercise are safe for you and how often you should exercise. This information is not intended to replace advice given to you by your health care provider. Make sure you discuss any questions you have with your health care provider. Document Released: 11/04/2005 Document Revised: 06/01/2019 Document Reviewed: 06/01/2019 [employer] Patient Education 2019 [employer]. [facility] 03-20-2023 Hospital Discharge instructions Patient Education 12/28/2022 16:45:02 Skin Abscess Skin Abscess A skin abscess is an infected area on or under your skin that contains a collection of pus and other material. An abscess may also be called a furuncle, carbuncle, or boil. An abscess can occur in oron almost any part of your body. Some abscesses break open (rupture) on their own. Most continue to get worse unless they are treated. The infection can spread deeper into the body and eventually into your blood, which can make you feel ill. Treatment usually involves draining the abscess. What are the causes? An abscess occurs when germs, like bacteria, pass through your skin and cause an infection. This may be caused by: A scrape or cut on your skin. A puncture wound through your skin, including a needle injection or insect bite. Blocked oil or sweat glands. Blocked and infected hair follicles. A cyst that forms beneath your skin (sebaceous cyst) and becomes infected. What increases the risk? This condition is more likely to develop in people who: Have a weak body defense system (immune system). Have diabetes. Have dry and irritated skin. Get frequent injections or use illegal IV drugs. Have a foreign body in a wound, such as a splinter. Have problems with their lymph system or veins. What are the signs or symptoms? Symptoms of this condition include: A painful, firm bump under the skin. A bump with pus at the top. This may break through the skin and drain. Other symptoms include: Redness surrounding the abscess site. Warmth. Swelling of the lymph nodes (glands) near the abscess. Tenderness. A sore on the skin. How is this diagnosed? This condition may be diagnosed based on: A physical exam. Your medical history. A sample of pus. This may be used to find out what is causing the infection. Blood tests. Imaging tests, such as an ultrasound, CT scan, or MRI. How is this treated? A small abscess that drains on its own may not need treatment. Treatment for larger abscesses may include: Moist heat or heat pack applied to the area several times a day. A procedure to drain the abscess (incision and drainage). Antibiotic medicines. For a severe abscess, you may first get antibiotics through an IV and then change to antibiotics by mouth. Follow these instructions at home: Medicines Take gbha-fyo-xtipohv and prescription medicines only as told by your health care provider. If you were prescribed an antibiotic medicine, take it as told by your health care provider. Do notstop taking the antibiotic even if you start to feel better. Abscess care If you have an abscess that has not drained, apply heat to the affected area. Use the heat source that your health care provider recommends, such as a moist heat pack or a heating pad. ?Place a towel between your skin and the heat source. ?Leave the heat on for 20 30 minutes. ?Remove the heat if your skin turns bright red. This is especially important if you are unable to feel pain, heat, or cold. You may have a greater risk of getting burned. Follow instructions from your health care provider about how to take care of your abscess. Make sure you: ?Cover the abscess with a bandage (dressing). ?Change your dressing or gauze as told by your health care provider. ?Wash your hands with soap and water before you change the dressing or gauze. If soap and water arenot available, use hand driver salesman. Check your abscess every day for signs of a worsening infection. Check for: ?More redness, swelling, or pain. ?More fluid or blood. ?Warmth. ?More pus or a bad smell. General instructions To avoid spreading the infection: ?Do not share personal care items, towels, or hot tubs with others. ?Avoid making skin contact with other people. Keep all follow-up visits as told by your health care provider. This is important. Contact a health care provider if you have: More redness, swelling, or pain around your abscess. More fluid or blood coming from your abscess. Warm skin around your abscess. More pus or a bad smell coming from your abscess. A fever. Muscle aches. Chills or a general ill feeling. Get help right away if you: Have severe pain. See red streaks on your skin spreading away from the abscess. Summary A skin abscess is an infected area on or under your skin that contains a collection of pus and other material. A small abscess that drains on its own may not need treatment. Treatment for larger abscesses may include having a procedure to drain the abscess and taking an antibiotic. This information is not intended to replace advice given to you by your health care provider. Make sure you discuss any questions you have with your health care provider. Document Released: 07/07/2006 Document Revised: 01/18/2020 Document Reviewed: 11/10/2018 [employer] Patient Education 2020 [employer]. Follow Up Care 12/28/2022 16:23:36 With:Dae LANDAVERDE Address: [address], [facility] [address] [facility] [address] [place] [address]- Business (1) When:12/31/2022 16:44:46 Comments:Follow-up for evaluation and treatment of breast abscess With:JAVIER MARY Address: [address], [facility] [address] [place] [address]- Business (1) When:Within 3 Day(s) [facility]02-20-2023 Evaluation note* Encounter Date Diagnosis Assessment Notes Treatment Notes Treatment Clinical Notes Nov, Sleep difficulties (ICD-10 - G47.9) Lengthy discussion with patient and daughter today. Certainly had like her to go ahead and try half a tablet every day, the amitriptyline. They will call with results. Nov, Essential (primary) hypertension (ICD-10 - I10) Good control seen here today, and I would agree that she can only really use the vfts-ggo-nlcrzdn Coricidin. Call with results. Nov, Constipation, unspecified constipation type (ICD-10 - K59.00) Lengthy discussion with patient and daughter today that certainly she could try the vjuc-suq-faakorx Colace or the evxx-vzi-rygqhog MiraLAX, as this is something that they also purchased. I feel she would be best served by trying to take a half a cap every day Nov, Nasal congestion (ICD-10 - R09.81) Ylyw-hes-fapgvma Coricidin is fine. Patient to call if no improvement seen. [facility] Other 02-20-2023 Evaluation note* Encounter Date Diagnosis Assessment Notes Treatment Notes Treatment Clinical Notes Nov, Pure hypercholestero lemia (ICD-10 - E78.00) Nov, Essential (primary) hypertension (ICD-10 - I10) [facility] Other 02-02-2023 Hospital Discharge instructions Patient Education 11/12/2022 13:16:10 Cellulitis, Adult Cellulitis, Adult Cellulitis is a skin infection. The infected area is usually warm, red, swollen, and tender. This condition occurs most often in the arms and lower legs. The infection can travel to the muscles, blood, and underlying tissue and become serious. It is very important to get treated for this condition. What are the causes? Cellulitis is caused by bacteria. The bacteria enter through a break in the skin, such as a cut, burn, insect bite, open sore, or crack. What increases the risk? This condition is more likely to occur in people who: Have a weak body defense system (immune system). Have open wounds on the skin, such as cuts, ogden, bites, and scrapes. Bacteria can enter the body through these open wounds. Are older than 60 years of age. Have diabetes. Have a type of long-lasting (chronic) liver disease (cirrhosis) or kidney disease. Are obese. Have a skin condition such as: ?Itchy rash (eczema). ?Slow movement of blood in the veins (venous stasis). ?Fluid buildup below the skin (edema). Have had radiation therapy. Use IV drugs. What are the signs or symptoms? Symptoms of this condition include: Redness, streaking, or spotting on the skin. Swollen area of the skin. Tenderness or pain when an area of the skin is touched. Warm skin. A fever. Chills. Blisters. How is this diagnosed? This condition is diagnosed based on a medical history and physical exam. You may also have tests, including: Blood tests. Imaging tests. How is this treated? Treatment for this condition may include: Medicines, such as antibiotic medicines or medicines to treat allergies (antihistamines). Supportive care, such as rest and application of cold or warm cloths (compresses) to the skin. Hospital care, if the condition is severe. The infection usually starts to get better within 1 2 days of treatment. Follow these instructions at home: Medicines Take tvef-amr-qihtrao and prescription medicines only as told by your health care provider. If you were prescribed an antibiotic medicine, take it as told by your health care provider. Do notstop taking the antibiotic even if you start to feel better. General instructions Drink enough fluid to keep your urine pale yellow. Do not touch or rub the infected area. Raise (elevate) the infected area above the level of your heart while you are sitting or lying down. Apply warm or cold compresses to the affected area as told by your health care provider. Keep all follow-up visits as told by your health care provider. This is important. These visits letyour health care provider make sure a more serious infection is not developing. Contact a health care provider if: You have a fever. Your symptoms do not begin to improve within 1 2 days of starting treatment. Your bone or joint underneath the infected area becomes painful after the skin has healed. Your infection returns in the same area or another area. You notice a swollen bump in the infected area. You develop new symptoms. You have a general ill feeling (malaise) with muscle aches and pains. Get help right away if: Your symptoms get worse. You feel very sleepy. You develop vomiting or diarrhea that persists. You notice red streaks coming from the infected area. Your red area gets larger or turns dark in color. These symptoms may represent a serious problem that is an emergency. Do not wait to see if the symptoms will go away. Get medical help right away. Call your local emergency services (911 in the [place] Do not drive yourself to the hospital. Summary Cellulitis is a skin infection. This condition occurs most often in the arms and lower legs. Treatment for this condition may include medicines, such as antibiotic medicines or antihistamines. Take giga-muc-omkwmfx and prescription medicines only as told by your health care provider. If you were prescribed an antibiotic medicine, do not stop taking the antibiotic even if you start to feel better. Contact a health care provider if your symptoms do not begin to improve within 1 2 days of startingtreatment or your symptoms get worse. Keep all follow-up visits as told by your health care provider. This is important. These visits letyour health care provider make sure that a more serious infection is not developing. This information is not intended to replace advice given to you by your health care provider. Make sure you discuss any questions you have with your health care provider. Document Released: 07/07/2006 Document Revised: 02/16/2019 Document Reviewed: 02/16/2019 [employer] Patient Education 2020 [employer]. Follow Up Care 11/12/2022 11:41:12 With:JAVIER MARY Address: [facility] [address] [address]- Business (1) When:11/15/2022 13:03:01 [facility]02-02-2023 Evaluation + Plan noteExtracted from: Title:ED Note Author:Clyde Alas PA-C te:11/12/22 Cellulitis (L03.90: Cellulit is, unspecified) Wrist pain (M25.539: Pain in unspecified wrist) Orders: cephalexin, 500 mg = 1 cap(s), Oral, TID, Take one capsule by mouth three times a day for ten days, # 30 cap(s), Refills(s) 0, Pharmacy: [facility], 165, cm, 11/12/22 11:52:00 EST, Height/Length Dosing, 69, kg, 11/12/22 11:52:00 EST, Weight Dosing Splint Application Wrist XR Wrist 3+ Views Right [facility]12-06-2022 Evaluation note* Encounter Date Diagnosis Assessment Notes Treatment Notes Treatment Clinical Notes Sep, Impaired fasting blood sugar (ICD-10 - R73.01) Excellent stable control, therefore no change. Continue to monitor diet carefully. Sep, Memory changes (ICD-10 - R41.3) Lengthy 30+ minute discussion with patient and daughter today that we could try medication like Aricept and/or Namenda. They will consider this and let me know how they would like to proceed. Sep, Nasal congestion (ICD-10 - R09.81) Pt needs to do the nasal steroid consistently every day! She voices agreement and understanding. She will call with update. 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 They most often appear in the legs. What are the causes? This condition is caused by damage to the valves in the vein. These valves help blood return to your heart. When they are damaged and they stop working properly, blood may flow backward and back up in the veins near the skin, causing the veins to get larger and appear twisted. The condition can result from any issue that causes blood to back up, like , prolonged standing, or obesity. What increases the risk? This condition is more likely to develop in people who are: On their feet a lot. . Overweight. What are the signs or symptoms? Symptoms of this condition include: Bulging, twisted, and bluish veins. A feeling of heaviness. This may be worse at the end of the day. Leg pain. This may be worse at the end of the day. Swelling in the leg. Changes in skin color over the veins. How is this diagnosed? This condition may be diagnosed based on your symptoms, a physical exam, and an ultrasound test. How is this treated? Treatment for this condition may involve: Avoiding sitting or standing in one position for long periods of time. Wearing compression stockings. These stockings help to prevent blood clots and reduce swelling in the legs. Raising (elevating) the legs when resting. Losing weight. Exercising regularly. If you have persistent symptoms or want to improve the way your varicose veins look, you may chooseto have a procedure to close the varicose veins off or to remove them. Treatments to close off the veins include: Sclerotherapy. In this treatment, a solution is injected into a vein to close it off. Laser treatment. In this treatment, the vein is heated with a laser to close it off. Radiofrequency vein ablation. In this treatment, an electrical current produced by radio waves is used to close off the vein. Treatments to remove the veins include: Phlebectomy. In this treatment, the veins are removed through small incisions made over the veins. Vein ligation and stripping. In this treatment, incisions are made over the veins. The veins are then removed after being tied (ligated) with stitches (sutures). Follow these instructions at home: Activity Walk as much as possible. Walking increases blood flow. This helps blood return to the heart and takes pressure off your veins. It also increases your cardiovascular strength. Follow your health care provider's instructions about exercising. Do not stand or sit in one position for a long period of time. Do not sit with your legs crossed. Rest with your legs raised during the day. General instructions Follow any diet instructions given to you by your health care provider. Wear compression stockings as directed by your health care provider. Do not wear other kinds of tight clothing around your legs, pelvis, or waist. Elevate your legs at night to above the level of your heart. If you get a cut in the skin over the varicose vein and the vein bleeds: ?Lie down with your leg raised. ?Apply firm pressure to the cut with a clean cloth until the bleeding stops. ?Place a bandage (dressing) on the cut. Contact a health care provider if: The skin around your varicose veins starts to break down. You have pain, redness, tenderness, or hard swelling over a vein. You are uncomfortable because of pain. You get a cut in the skin over a varicose vein and it will not stop bleeding. Summary Varicose veins are veins that have become enlarged, bulged, and twisted. They most often appear in the legs. This condition is caused by damage to the valves in the vein. These valves help blood return to your heart. Treatment for this condition includes frequent movements, wearing compression stockings, losing weight, and exercising regularly. In some cases, procedures are done to close off or remove the veins. Treatment for this condition may include wearing compression stockings, elevating the legs, losing weight, and engaging in regular activity. In some cases, procedures are done to close off or remove the veins. This information is not intended to replace advice given to you by your health care provider. Make sure you discuss any questions you have with your health care provider. Document Released: 07/07/2006 Document Revised: 11/23/2019 Document Reviewed: 10/20/2017 [employer] Patient Education 2020 [employer]. 05/11/2022 10:39:55 Simms Cyst Simms Cyst A Simms cyst, also called a popliteal cyst, is a growth that forms at the back of the knee. The cyst forms when the fluid-filled sac (bursa) that cushions the knee joint becomes enlarged. What are the causes? In most cases, a Simms cyst results from another knee problem that causes swelling inside the knee.This makes the fluid inside the knee joint (synovial fluid) flow into the bursa behind the knee, causing the bursa to enlarge. What increases the risk? You may be more likely to develop a Simms cyst if you already have a knee problem, such as: A tear in cartilage that cushions the knee joint (meniscal tear). A tear in the tissues that connect the bones of the knee joint (ligament tear). Knee swelling from osteoarthritis, rheumatoid arthritis, or gout. What are the signs or symptoms? The main symptom of this condition is a lump behind the knee. This may be the only symptom of the condition. The lump may be painful, especially when the knee is straightened. If the lump is painful,the pain may come and go. The knee may also be stiff. Symptoms may quickly get more severe if the cyst breaks open (ruptures). If the cyst ruptures, you may feel the following in your knee and calf: Sudden or worsening pain. Swelling. Bruising. Redness in the calf. A Simms cyst does not always cause symptoms. How is this diagnosed? This condition may be diagnosed based on your symptoms and medical history. Your health care provider will also do a physical exam. This may include: Feeling the cyst to check whether it is tender. Checking your knee for signs of another knee condition that causes swelling. You may have imaging tests, such as: X-rays. MRI. Ultrasound. How is this treated? A Simms cyst that is not painful may go away without treatment. If the cyst gets large or painful, it will likely get better if the underlying knee problem is treated. If needed, treatment for a Simms cyst may include: Resting. Keeping weight off of the knee. This means not leaning on the knee to support your body weight. Taking NSAIDs, such as ibuprofen, to reduce pain and swelling. Having a procedure to drain the fluid from the cyst with a needle (aspiration). You may also get aninjection of a medicine that reduces swelling (steroid). Having surgery. This may be needed if other treatments do not work. This usually involves correcting knee damage and removing the cyst. Follow these instructions at home: Activity Rest as told by your health care provider. Avoid activities that make pain or swelling worse. Return to your normal activities as told by your health care provider. Ask your health care provider what activities are safe for you. Do not use the injured limb to support your body weight until your health care provider says that you can. Use crutches as told by your health care provider. General instructions Take ixej-qgz-nlxorar and prescription medicines only as told by your health care provider. Keep all follow-up visits as told by your health care provider. This is important. Contact a health care provider if: You have knee pain, stiffness, or swelling that does not get better. Get help right away if: You have sudden or worsening pain and swelling in your calf area. Summary A Simms cyst, also called a popliteal cyst, is a growth that forms at the back of the knee. In most cases, a Simms cyst results from another knee problem that causes swelling inside the knee. A Simms cyst that is not painful may go away without treatment. If needed, treatment for a Simms cyst may include resting, keeping weight off of the knee, medicines, or draining fluid from the cyst. Surgery may be needed if other treatments are not effective. This information is not intended to replace advice given to you by your health care provider. Make sure you discuss any questions you have with your health care provider. Document Released: 09/27/2006 Document Revised: 02/09/2020 Document Reviewed: 02/09/2020 [employer] Patient Education 2020 [employer] Follow Up Care 05/11/2022 08:45:22 With:Marquise Mesa Address: [address] [place] [address]- Business (1) When:05/14/2022 10:10:58 With:JAVIER MARY Address: [address] [address] Business (1) When:Within 3 Day(s) [facility]06-06-2022 Evaluation note* Encounter Date Diagnosis Assessment Notes Treatment Notes Treatment Clinical Notes Mar, Impaired fasting blood sugar (ICD-10 - R73.01) Excellent control today, therefore no change. Continue to monitor diet. Mar, Medicare annual wellness visit, initial (ICD-10 - Z00.00) Personalized health advice was given to the beneficiary including a written plan for screenings discussed and provided. Advanced care planning reviewed and/or information given as requested. Additional counseling was provided here today in regards to, impaired fasting glucose. The above visit was performed by Shahana Menard CMA, under direct supervision of Dr. Javier Mary. Document reviewed and amended by provider signed below. Mar, Tinnitus of both ears (ICD-10 - H93.13) We will contact ENT to see if they are going to have the patient ombudsperson back shortly or if we should send her to the patient ombudsperson in [place]. We will contact patient/son-in-law with results. [facility] Other 04-28-2022 Evaluation note* Encounter Date Diagnosis Assessment Notes Treatment Notes Treatment Clinical Notes Jan, Laceration of right lower leg, initial encounter (ICD-10 - S81.811A) Pt to keep clean and dry - no bathing - shower only. [facility] Other 04-24-2022 Hospital Discharge instructions Patient Education 01/31/2022 22:44:56 Wound Care, Adult Wound Care, Adult Taking care of your wound properly can help to prevent pain, infection, and scarring. It can also help your wound to heal more quickly. How to care for your wound Wound care Follow instructions from your health care provider about how to take care of your wound. Make sure you: ?Wash your hands with soap and water before you change the bandage (dressing). If soap and water are not available, use hand driver salesman. ?Change your dressing as told by your health care provider. ?Leave stitches (sutures), skin glue, or adhesive strips in place. These skin closures may need to stay in place for 2 weeks or longer. If adhesive strip edges start to loosen and curl up, you may trim the loose edges. Do not remove adhesive strips completely unless your health care provider tells you to do that. Check your wound area every day for signs of infection. Check for: ?Redness, swelling, or pain. ?Fluid or blood. ?Warmth. ?Pus or a bad smell. Ask your health care provider if you should clean the wound with mild soap and water. Doing this may include: ?Using a clean towel to pat the wound dry after cleaning it. Do not rub or scrub the wound. ?Applying a cream or ointment. Do this only as told by your health care provider. ?Covering the incision with a clean dressing. Ask your health care provider when you can leave the wound uncovered. Keep the dressing dry until your health care provider says it can be removed. Do not take baths, swim, use a hot tub, or do anything that would put the wound underwater until your health care provider approves. Ask your health care provider if you can take showers. You may only be allowed to take sponge baths. Medicines If you were prescribed an antibiotic medicine, cream, or ointment, take or use the antibiotic as told by your health care provider. Do not stop taking or using the antibiotic even if your condition improves. Take qkfo-pyk-wlwtgue and prescription medicines only as told by your health care provider. If you were prescribed pain medicine, take it 30 or more minutes before you do any wound care or as told byyour health care provider. General instructions Return to your normal activities as told by your health care provider. Ask your health care provider what activities are safe. Do not scratch or pick at the wound. Do not use any products that contain nicotine or tobacco, such as cigarettes and e-cigarettes. These may delay wound healing. If you need help quitting, ask your health care provider. Keep all follow-up visits as told by your health care provider. This is important. Eat a diet that includes protein, vitamin A, vitamin C, and other nutrient-rich foods to help the wound heal. ?Foods rich in protein include meat, dairy, beans, nuts, and other sources. ?Foods rich in vitamin A include carrots and dark green, leafy vegetables. ?Foods rich in vitamin C include citrus, tomatoes, and other fruits and vegetables. ?Nutrient-rich foods have protein, carbohydrates, fat, vitamins, or minerals. Eat a variety of healthy foods including vegetables, fruits, and whole grains. Contact a health care provider if: You received a tetanus shot and you have swelling, severe pain, redness, or bleeding at the injection site. Your pain is not controlled with medicine. You have redness, swelling, or pain around the wound. You have fluid or blood coming from the wound. Your wound feels warm to the touch. You have pus or a bad smell coming from the wound. You have a fever or chills. You are nauseous or you vomit. You are dizzy. Get help right away if: You have a red streak going away from your wound. The edges of the wound open up and separate. Your wound is bleeding, and the bleeding does not stop with gentle pressure. You have a rash. You faint. You have trouble breathing. Summary Always wash your hands with soap and water before changing your bandage (dressing). To help with healing, eat foods that are rich in protein, vitamin A, vitamin C, and other nutrients. Check your wound every day for signs of infection. Contact your health care provider if you suspectthat your wound is infected. This information is not intended to replace advice given to you by your health care provider. Make sure you discuss any questions you have with your health care provider. Document Released: 07/06/2009 Document Revised: 01/15/2020 Document Reviewed: 04/13/2017 [employer] Patient Education 2020 [employer]. 01/31/2022 22:44:56 Nonsutured Laceration Care Nonsutured Laceration Care A laceration is a cut that may go through all layers of the skin and extend into the tissue that isright under the skin. This type of cut is usually stitched up (sutured) or closed with tape (adhesive strips) or skin glue shortly after the injury happens. However, if the wound is dirty or if several hours pass before medical treatment is provided, it islikely that germs (bacteria) will enter the wound. Closing a laceration after bacteria have enteredit increases the risk of infection. In these cases, your health care provider may leave the laceration open (nonsutured) and cover it with a bandage. This type of treatment helps prevent infection and allows the wound to heal from the deepest layer of tissue damage up to the surface. An open fracture is a type of injury that may involve nonsutured lacerations. An open fracture is abreak in a bone that happens along with lacerations through the skin at the fracture site. What are the risks? Caring for a nonsutured laceration is safe. However, problems may occur, including a higher risk for: Scarring. Infection. Slow healing. Supplies needed: Soap. Hand driver salesman. Sterile water or irrigation solution. Bandages (dressings). Clean towel. Antibiotic ointment. How to care for your nonsutured laceration Follow instructions from your health care provider about how to take care of your wound. Keep the wound clean and dry. Change any dressings as told by your health care provider. This includes changing the dressing whenit starts to smell, or when it gets wet or dirty. Clean the wound one time each day, or as often as told by your health care provider. To clean your wound: 1.Wash your hands with soap and water. If soap and water are not available, use hand driver salesman. 2.Remove any dressing as told by your health care provider. 3.Clean the wound with sterile water or irrigation solution as told by your health care provider. 4.Pat the wound dry with a clean towel. Do not rub the wound. 5.Apply a thin layer of antibiotic ointment to the wound as told by your health care provider. Thiswill prevent infection and keep the dressing from sticking to the wound. 6.Apply a new dressing as told by your health care provider. Check your wound every day for signs of infection. Watch for: ?Redness, swelling, or pain. ?Fluid, blood, or pus. ?Bad smell on the wound or dressing. ?Warmth. Do not take baths, swim, or do anything that puts your wound underwater until your health care provider approves. Do not scratch or pick at the wound. Follow these instructions at home: Take or apply pcqn-hcl-uxqumwi and prescription medicines only as told by your health care provider. If you were prescribed an antibiotic medicine, take or apply it as told by your health care provider. Do not stop using the antibiotic even if your condition improves. Do not inject anything into the wound unless directed by your health care provider. Raise (elevate) the injured area above the level of your heart while you are sitting or lying down,if possible. If directed, put ice on the affected area: ?Put ice in a plastic bag. ?Place a towel between your skin and the bag. ?Leave the ice on for 20 minutes, 2 3 times a day. Keep all follow-up visits as told by your health care provider. This is important. Contact a health care provider if: You received a tetanus shot and you have swelling, severe pain, redness, or bleeding at the injection site. You have a fever. Your pain is not controlled with medicine. You have increased redness, swelling, or pain at the site of your wound. You have fluid, blood, or pus coming from your wound. You notice a bad smell coming from your wound or your dressing. You notice something coming out of the wound, such as wood or glass. You notice a change in the color of your skin near your wound. You develop a new rash. You need to change the dressing frequently due to fluid, blood, or pus draining from the wound. You develop numbness around your wound. Get help right away if: Your pain suddenly increases and is severe. You develop severe swelling around the wound. The wound is on your hand or foot and you cannot properly move a finger or toe. The wound is on your hand or foot, and you notice that your fingers or toes look pale or bluish. You have a red streak going away from your wound. Summary A laceration is a cut that may go through all layers of the skin and extend into the tissue that isright under the skin. It is usually closed with stitches, tape, or skin glue shortly after the injury happens. If a wound is dirty or if several hours pass before medical treatment is provided, the laceration may be kept open (nonsutured) and covered with a bandage. This type of treatment helps prevent infection and allows the wound to heal from the deepest layer of tissue damage up to the surface. Follow instructions from your health care provider about how to take care of your wound. This information is not intended to replace advice given to you by your health care provider. Make sure you discuss any questions you have with your health care provider. Document Released: 08/25/2007 Document Revised: 01/19/2020 Document Reviewed: 10/17/2018 [employer] Patient Education 2020 [employer]. Follow Up Care 01/31/2022 19:55:48 With:JAVIER USMAN Address: [facility] [address] [address] [place] [address]- Business (1) When:02/03/2022 [facility]03-24-2022 Evaluation note* Encounter Date Diagnosis Assessment Notes Treatment Notes Treatment Clinical Notes Dec, Essential (primary) hypertension (ICD-10 - I10) [facility] Other 12-06-2021 Evaluation note* Encounter Date Diagnosis Assessment Notes Treatment Notes Treatment Clinical Notes Sep, Impaired fasting blood sugar (ICD-10 - R73.01) Excellent control seen here today, therefore no change. Sep, Skin cyst (ICD-10 - L72.9) Lengthy 30+ minute discussion with patient and daughter today that I think this is something that we can safely monitor. I would agree that it is probably affecting the superficial peroneal nerve/complex. She is agreeable to this. If she does decide she wants to proceed, and due to location, would send to Ortho if she would like definitive review/removal? 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 There is no reflux to the bilateral lower extremities. Best course of treatment for this patient would be localized Varithena treatment of her more prominent, bulging varicosities. Dr. Norwood in room to discuss treatment of her varicose veins with Varithena. All of her questions were addressed. Patient is undecided at this time whether she will proceed with any sort of treatment of her varicosities and would like to think it over and return at a later date if she wishes to proceed at a different time. She and her daughter verbalized understanding of all discussion here today and denies any additional questions. No scheduled follow-up at this time, patient to return or call when she decides on treatment. [facility] Other Evaluation + Plan note No data available for this section [facility] + Plan note Future Appointments Appointment Date:01/08/2023 09:15:00 AM Scheduled Provider: Location:.[facility] Appointment Type:MA Diagnostic (FT) Appointment Date:01/11/2023 01:40:00 PM Scheduled Provider:Paul Gomez MD Location:[facility] Appointment Type: Established 15 Future Scheduled Tests Radiology* MA Mamm Diag w/CAD if perf and 3D Robby 01/08/23 [facility] [place] [facility] [place] Evaluation + Plan note Future Appointments Appointment Date:01/08/2023 09:15:00 AM Scheduled Provider: Location:.[facility] Appointment Type:MA Diagnostic (FT) Appointment Date:01/11/2023 01:40:00 PM Scheduled Provider:Paul Gomze MD Location:[facility] Appointment Type: Established 15 Diagnostic Tests Pending * Wound Culture 01/04/23 Future Scheduled Tests Radiology* MA Mamm Diag w/CAD if perf and 3D Robby 01/08/23 [facility] Future Appointments Appointment Date:01/11/2023 01:40:00 PM Scheduled Provider:Paul Gomez MD Location:[facility] Appointment Type:GS Established 15 [facility] Future Appointments Appointment Date:06/17/2023 09:00:00 AM Scheduled Provider: Location:.[facility] Appointment Type:CV Echo (FT) Future Scheduled Tests Radiology* Echo Transthoracic Complete 06/17/23 [facility] noteNo InformationNortExcela [facility] ADMETA Other [facility]Nos[facility] [employer] Other History general Narrative - Reported* Type Description Date Medical History HyperChol Medical History Aortic aneurysm, intrathoracic Medical History Anxiety Medical History Iron defiency anemia Medical History Impaired fasting blood sugar Medical History HTN Medical History Dependent edema Medical History OA - Left Knee - see Ortho (Dr. Graff) Surgical History Left Foot - Tendon 2009 Surgical History Carpal Tunnel - Right 2013 Surgical History Left Breast Biopsy - cancer? 20 00 Surgical History Heart Surgery - Valve replaceme nt / Aorta / Bypass 07/19/2015 Surgical History Left knee replacement 07/02/2016 Surgical History heart cath 07/17/2015 Surgical History right leg vein removal - Gen Foley rg 03/2017 Surgical History left ankle tendon repair Surgical History left hip surgery 06/2019 Hospitalization History Left Knee replacement Hospitalization History anemia, leukocyt osis, thrombocytopenia, CAD, hypercholesteremia, HTN 06/30/2016 Hospitalization History S/P CABG x3, sta tus post aortic valve replacement with bioprosthetic valve, UTI 07/17/2015 Hospitalization History see above Hospitalization History left hip surgery 06/2019 [facility] Other Hiszyfz general Narrative - ReportedNortMolecular Templates Other Histypv general Narrative - Reported* Type Description Date Medical History HyperChol Medical History Aortic aneurysm, intrathoracic Medical History Anxiety Medical History Iron defiency anemia Medical History Impaired fasting blood sugar Medical History HTN Medical History Dependent edema Medical History OA - Left Knee - see Ortho (Dr. Graff) Surgical History Left Foot - Tendon 2009 Surgical History Carpal Tunnel - Right 2013 Surgical History Left Breast Biopsy - cancer? 20 00 Surgical History Heart Surgery - Valve replaceme nt / Aorta / Bypass 07/19/2015 Surgical History Left knee replacement 07/02/2016 Surgical History heart cath 07/17/2015 Surgical History right leg vein removal - Gen Foley rg 03/2017 Surgical History left ankle tendon repair Surgical History left hip surgery 06/2019 Hospitalization History Left Knee replacement Hospitalization History anemia, leukocyt osis, thrombocytopenia, CAD, hypercholesteremia, HTN 06/30/2016 Hospitalization History S/P CABG x3, sta tus post aortic valve replacement with bioprosthetic valve, UTI 07/17/2015 Hospitalization History see above Hospitalization History left hip surgery 06/2019 Hospitalization History Fracture of Pelvis 03/22 [facility] Other History of Present illness Narrative* Patient is here for earlier follow-up. I received recently a phone call from her family physician indicating she was noted to be in atrial fibrillation. 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 Patient did have brief episode of postoperative atrial fibrillation back in 2014. She recently was noted to be in atrial fibrillation.She was advised to start Eliquis. She is here to discuss treatment option. Patient unaware of her arrhythmia. Family report she is developing early dementia and increased forgetfulness. Patient denies chest pain, shortness of breath or palpitation. Her last echocardiogram was earlier this year and was noted and reviewed with her. * ASSESSMENT: * 1. Persistent atrial fibrillation heart rates seem to be on the high range just started Eliquis * 2. Coronary artery disease with prior two-vessel bypass surgery with left internal mammary artery to left anterior descending artery and vein graft to the right coronary artery. Appears stable with no angina * 3. Status post aortic valve replacement last echo was done back in 2019 * 4. 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 * 5.. Hypertension, appears to be controlled. She does have documented history of white coat hypertension. * 6.. Hyperlipidemia, no recent lab available * 7.. Obesity recent weight loss * 8. 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 Mild edema related to amlodipine and resolved * RECOMMENDATIONS: * 1. Risk, benefit and alternative of anticoagulation/Eliquis reviewed with patient and her son they both understood and agreed. In addition I recommend to increase metoprolol to 75 mg twice daily. Patient will be brought to the office in 3 weeks. If she remained in atrial fibrillation will proceed with cardioversion * 2. I counseled her regarding losing weight, exercise, and risk factor adjustment. * 3. I suggest her to keep her next follow-up appointment * 4. Endocarditis prophylaxis reviewed with patient * 5. Patient was advised to restrict her salt intake. * 6. I reviewed her recent echo and EKG with her and her son -[facility] 600 DO Work Phone: History of Present illness Narrative* For follow-up continue management for persistent atrial flutter status post recent cardioversion, coronary artery disease, aortic valve replacement, hypertension hyperlipidemia. Since last time I sawher she underwent cardioversion which was successful and she converted back to sinus rhythm. Since then she report marked improvement of her symptoms. She denies any complaint of chest pain, palpitation, lightheadedness, dizziness or syncope. She remains reasonably active. Her recent hospitalization record and lab were noted and reviewed with her. * ASSESSMENT: * 1. Persistent atrial pallor status post recent cardioversion. Remains in normal sinus rhythm and onEliquis. * 2. Coronary artery disease with prior two-vessel bypass surgery with left internal mammary artery to left anterior descending artery and vein graft to the right coronary artery. Appears stable with no angina * 3. Status post aortic valve replacement last echo was done back in 2020 * 4. 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 * 5.. Hypertension, appears to be controlled. She does have documented history of white coat hypertension. * 6.. Hyperlipidemia, no recent lab available * 7.. Obesity recent weight loss * 8. 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 Mild edema related to amlodipine and resolved * RECOMMENDATIONS: * 1. Risk, benefit and alternative of anticoagulation/Eliquis reviewed with patient and her son they both understood and agreed. * 2. I counseled her regarding losing weight, exercise, and risk factor adjustment. * 3. I suggest her to keep her next follow-up appointment * 4. Endocarditis prophylaxis reviewed with patient * 5. Patient was advised to restrict her salt intake. * 6. Natural history of atrial flutter and the possible recurrence and need for ablation discussed with her at length * 6. I reviewed her recent echo and EKG with her and her son [facility] 600 DO Work Phone: History of Present illness Narrative* Here for follow- up to management for persistent atrial fibrillation with recent cardioversion, coronary artery disease with prior bypass surgery, aortic valve replacement and resection of coronary aneurysm. Since last time I saw her she denies complaint of chest pain, palpitation, lightheadedness, dizziness or syncope. Her only complaint is increased bruisability. She remained in normal sinus rhythm. She is compliant with her medication. Her last echocardiogram showed appropriate valve function. * ASSESSMENT: * 1. Persistent atrial pallor status post recent cardioversion. Remains in normal sinus rhythm and onEliquis. * 2. Coronary artery disease with prior two-vessel bypass surgery with left internal mammary artery to left anterior descending artery and vein graft to the right coronary artery. Appears stable with no angina * 3. Status post aortic valve replacement last echo was done back in 2020 * 4. 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 * 5.. Hypertension, appears to be controlled. She does have documented history of white coat hypertension. * 6.. Hyperlipidemia, treatment * 7.. Obesity recent weight loss * 8. 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 Bruisability due to aspirin and Eliquis * RECOMMENDATIONS: * 1. Risk, benefit and alternative of anticoagulation/Eliquis reviewed with patient and her son they both understood and agreed. Recommended to reduce the dose of aspirin * 2. I counseled her regarding losing weight, exercise, and risk factor adjustment. * 3. I suggest her to keep her next follow-up appointment * 4. Endocarditis prophylaxis reviewed with patient * 5. Patient was advised to restrict her salt intake. * 6. Natural history of atrial flutter and the possible recurrence and need for ablation discussed with her at length * 7. I reviewed her EKG with her and her son and * 8. We will see her in 6 months and plan to repeat her lab work as ordered -[facility] 600 DO Work Phone: History of Present illness Narrative* Patient is here for follow-up continue management for atrial flutter status post cardioversion, coronary artery disease, aortic valve replacement, hypertension and hyperlipidemia. Since last time I saw her she denies any cardiac complaint of chest pain, palpitation, lightheadedness, dizziness or syncope. Her only complaint is easy bruisability otherwise denying any complaint. Her recent laboratory data noted and reviewed with her. Her EKG today showed normal sinus rhythm. * ASSESSMENT: * 1. History of atrial flutter status post t cardioversion. Remains in normal sinus rhythm and on Eliquis. * 2. Coronary artery disease with prior two-vessel bypass surgery with left internal mammary artery to left anterior descending artery and vein graft to the right coronary artery. Appears stable with no angina * 3. Status post aortic valve replacement last echo was done back in 2020 * 4. 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 * 5.. Hypertension, appears to be controlled. She does have documented history of white coat hypertension. * 6.. Hyperlipidemia, treatment and controlled * 7.. Obesity recent weight loss * 8. 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 See bruisability due to aspirin and Eliquis * RECOMMENDATIONS: * 1. Risk, benefit and alternative of anticoagulation/ Eliquis reviewed with patient and her son theyboth understood and agreed. Recommended to reduce the dose of aspirin * 2. I counseled her regarding losing weight, exercise, and risk factor adjustment. * 3. I suggest her to keep her next follow-up appointment * 4. Endocarditis prophylaxis reviewed with patient * 5. Patient was advised to restrict her salt intake. * 6. Natural history of atrial flutter and the possible recurrence and need for ablation discussed with her at length * 7. I reviewed her EKG with her and her son and * 8. We will see her in 6 months * 9. I reviewed her recent lab work with her * 10. Next time we will see her we will consider repeating her echocardiogram [facility] 600 DO Work Phone: Hospital Discharge instructions No data available for this section [facility] No data available for this section [facility] Summary Purpose Family History Mother Name Dates Details Family history of cerebrovas cular accident (CVA)(V17.1, Z82.3) Status:Active Family history of cardiac di sorder(V17.49, Z82.49) Status:Active Mother Name Dates Details Family history of cerebrovas cular accident (CVA)(V17.1, Z82.3) Status:Active Family history of cardiac di sorder(V17.49, Z82.49) Status:Active Unknown Family Member Name Dates Details Family history of cerebrovas cular accident (CVA): Mother(V17.1, Z82.3) Status:Active Family history of cardiac di sorder: Mother(V17.49, Z82.49) Status:Active Unknown Family Member Name Dates Details Family history of cerebrovas cular accident (CVA): Mother(V17.1, Z82.3) Status:Active Family history of cardiac di sorder: Mother(V17.49, Z82.49) Status:Active No pertinent family history: Father, Sister, Brother, Other(V49.89, Z78.9) Status:Active Unknown Family Member Name Dates Details No pertinent family history: Father, Sister, Brother, Other(V49.89, Z78.9) Status:Active Family history of cardiac di sorder: Mother(V17.49, Z82.49) Status:Active Family history of cerebrovas cular accident (CVA): Mother(V17.1, Z82.3) Status:Active Unknown Family Member Name Dates Details No pertinent family history: Father, Sister, Brother, Other(V49.89, Z78.9) Status:Active Family history of cardiac di sorder: Mother(V17.49, Z82.49) Status:Active Family history of cerebrovas cular accident (CVA): Mother(V17.1, Z82.3) Status:Active Unknown Family Member Name Dates Details Family history of cerebrovas cular accident (CVA): Mother(V17.1, Z82.3) Status:Active Family history of cardiac di sorder: Mother(V17.49, Z82.49) Status:Active No pertinent family history: Father, Sister, Brother, Other(V49.89, Z78.9) Status:Active Unknown Family Member Name Dates Details Family history of cerebrovas cular accident (CVA): Mother(V17.1, Z82.3) Status:Active Family history of cardiac di sorder: Mother(V17.49, Z82.49) Status:Active No pertinent family history: Father, Sister, Brother, Other(V49.89, Z78.9) Status:Active Unknown Family Member Name Dates Details Family history of cerebrovas cular accident (CVA): Mother(V17.1, Z82.3) Status:Active Family history of cardiac di sorder: Mother(V17.49, Z82.49) Status:Active No pertinent family history: Father, Sister, Brother, Other(V49.89, Z78.9) Status:Active Unknown Family Member Name Dates Details Family history of cerebrovas cular accident (CVA): Mother(V17.1, Z82.3) Status:Active Family history of cardiac di sorder: Mother(V17.49, Z82.49) Status:Active No pertinent family history: Father, Sister, Brother, Other(V49.89, Z78.9) Status:Active Unknown Family Member Name Dates Details No pertinent family history: Father, Sister, Brother, Other(V49.89, Z78.9) Status:Active Family history of cardiac di sorder: Mother(V17.49, Z82.49) Status:Active Family history of cerebrovas cular accident (CVA): Mother(V17.1, Z82.3) Status:Active Unknown Family Member Name Dates Details Family history of cerebrovas cular accident (CVA): Mother(V17.1, Z82.3) Status:Active Family history of cardiac di sorder: Mother(V17.49, Z82.49) Status:Active No pertinent family history: Father, Sister, Brother, Other(V49.89, Z78.9) Status:Active Unknown Family Member Name Dates Details Family history of cerebrovas cular accident (CVA): Mother(V17.1, Z82.3) Status:Active Family history of cardiac di sorder: Mother(V17.49, Z82.49) Status:Active No pertinent family history: Father, Sister, Brother, Other(V49.89, Z78.9) Status:Active Unknown Family Member Name Dates Details Family history of cerebrovas cular accident (CVA): Mother(V17.1, Z82.3) Status:Active Family history of cardiac di sorder: Mother(V17.49, Z82.49) Status:Active No pertinent family history: Father, Sister, Brother, Other(V49.89, Z78.9) Status:Active Unknown Family Member Name Dates Details Family history of cerebrovas cular accident (CVA): Mother(V17.1, Z82.3) Status:Active Family history of cardiac di sorder: Mother(V17.49, Z82.49) Status:Active No pertinent family history: Father, Sister, Brother, Other(V49.89, Z78.9) Status:Active Unknown Family Member Name Dates Details Family history of cerebrovas cular accident (CVA): Mother(V17.1, Z82.3) Status:Active Family history of cardiac di sorder: Mother(V17.49, Z82.49) Status:Active No pertinent family history: Father, Sister, Brother, Other(V49.89, Z78.9) Status:Active Advance Directives No Advanced Directives Records FoundNo Advanced Directives Records FoundNo Advanced Directives Records FoundNo Advanced Directives Records FoundNo Advanced Directives Records FoundNo Advanced Directives Records Found Chief Complaint * ADDED ON FOR VISIT. * [facility] is being seen for an acute exacerbation of atrial fibrillation. [facility] is being seen for an annual follow-up of.[facility] is being seen for a 4 month follow-up of.[facility] is being seen for a 6 with ecg month follow-up of. Additional Source Comments INFORMATION SOURCE (unrecogn ized section and content) DATE CREATED AUTHOR 12/29/2018 [facility] DATE CREATED AUTHOR AUTHOR'S ORGANIZ ATION 12/05/2020 [facility] DATE CREATED AUTHOR AUTHOR'S ORGANIZ ATION 11/14/2022 [facility] DATE CREATED AUTHOR AUTHOR'S ORGANIZ ATION 06/03/2023 [employer] DATE CREATED AUTHOR AUTHOR'S ORGANIZ ATION 06/18/2023 [facility] DATE CREATED AUTHOR AUTHOR'S ORGANIZ ATION 06/19/2023 [facility] REASON FOR VISIT (unrecogniz ed section and content) Vascular surgery consultVASC 1 WEEK FOLLOW UP; FF VENOUS DUPLEX BOTH LEGS 08/21/21EKG Result Req6 month Follow up, needs A1C, Pt. states she saw Dr. Norwood in August and he would like Dr. Mary to keep and eye on her left calf areaPatient Update/ EKGEKG Resultsrefill lisinopril, lasixClinical Acute Illnessrefill vit d, amlodipinemed/allergy list [facility] [place] [facility] [place] Follow up, Due for Medicare Wellness- BK (patient is ok with medicare wellness), patient did see ENT-- was told nothing is structurally wrong with her ears, still waiting on patient ombudsperson appt.. and was wondering if she could get in sooner somewhere else..Audiology Questionrefill vitamin drefill severalrefill norvasc6 month Follow up, Pt. has an appt. with ortho today due to edema right kneemedication concernsClinical Acute Illnessallergy list requestrefill- Vit DFMLA for Doris, wants to discuss switchimg up the amitriptiline- she currently takes 25 mg 1/2 tab QOD- not sleeping wellmulti refillsClinical Acute Illnessappt requestGen surg/mammo quesrefill restasisClinical Acute MedicineColace questionPT D/C FYIhospital follow up, pts daughter says she was out in the yard wrapping up garden hose and slipped and fell and broke pelvis- she hospitalized for a few days, then TCU for 1.5 weeks.-- Ortho, doris says when she was in TCU she had cognitive deficiency 7 out of 30 questions correct- they are suggesting she see a neuro- has appt 05/12/2023-- BUT doris says when she tried to schedule, the office staff asked her what tests she wanted ordered.. she wasn't sure what to tell them and hoping Dr Mary could shine some light on that, she was trying laxative and metamucil- and not working. hospital suggested colmatilda and Doris wanted to see his thoughts were and get rx if he agrees, she is no longer driving-pt says better safe than sorry , she says TCU also suggested she get a med alert button /necklace but hadn't- wants to know how to proceed, right before she fell she was scheduled for knee injection.. she has call out to Dr Graff to see if she is still able to get this and she wants Dr Usman Bowser tear on top of right hand from dog nail- wednesdayrefill vitamin dbumped leg and now its bruised/ blistered on wednesday-refill norvascrefill amitryptilineletter requestClinical Acute Illness6 month Follow up Care Team (unrecognized sect ion and content) Personnel Name: JAVIER MARY DO Address: [address] [place] [address]- Name: Ivory Villanueva Personnel Name: JAVIER MARY DO Address: Address: [address] [place] [address]- Name: Ivory Villanueva Personnel Name: JAVIER MARY DO Address: Address: [address] [place] [address] Name: Ivory Villanueva Personnel Name: USMAN DO, JAVIER M Address: Address: [address] [place] [phone]- [place] Name: Ivory Villanueva Personnel Name: USMAN DO, JAVIER M Address: Address: [address] [place] [phone]- [place] Name: Ivory Villanueva Personnel Name: USMAN DO, JAVIER M Address: Address: [address] [place] [address]- [place] Name: Ivory Villanueva Personnel Name: USMAN DO, JAVIER M Address: Address: [address] [place] [id number]- [place] Name: Ivory Villanueva Personnel Name: USMAN DO, JAVIER M Address: Address: [address] [place] [phone]- [place] Name: Ivory Villanueva Personnel Name: USMAN DO, JAVIER M Address: Address: [address] [place] [phone]- [place] Name: Ivory Villanueva Personnel Name: USMAN DO, JAVIER M Address: Address: [address] [place] [phone]- [place] Name: Ivory Villanueva Personnel Name: USMAN DO, JAVIER M Address: Address: [address] [place] [id number]- [place] Name: Ivory Villanueva Personnel Name: USMAN DO, JAVIER M Address: Address: [address] [place] [phone]- [place] Name: Ivory Villanueva Personnel Name: USMAN DO, JAVIER M Address: Address: [address] [place] [id number] [place] Name: Ivory Villanueva Personnel Name: USMAN DO, JAVIER M Address: Address: [address] [place] [phone] [place] Name: Ivory Villanueva FOR RECORDS PERTAINING TO PATIENTS WHO ARE OR HAVE BEEN ENROLLED IN A CHEMICAL DEPENDENCY/SUBSTANCEABUSE PROGRAM, SOME INFORMATION MAY BE OMITTED. This clinical summary was aggregated from multiple sources. Caution should be exercised in using it in the provision of clinical care. This summary normalizes information from multiple sources, and as a consequence, information in this document may materially change the coding, format and clinical context of patient data. In addition, data may be omitted in some cases. CLINICAL DECISIONS SHOULD BE BASED ON THE PRIMARY CLINICAL RECORDS. [facility]. provides no warranty or guarantee of the accuracy or completeness of information in this document.
== END 2023-09-30 12:54 | disposition home or self-care (01) ==
LOC: VC 12:53
PROVIDERS: PCP Radiology Diagnostic Radiology; Visit Provider Radiology Diagnostic Radiology
DX: I83.813 Varicose veins of bilateral lower extremities with pain (principal)
CPT/HCPCS: 36466

== ENCOUNTER 2023-10-13 14:15 | Outpatient (OUT) | payer MEDICARE, SELFPAY ==
--- NOTE | 2023-10-13 14:18 | VEIN_ITS ---
Patient Name: DARWIN ESPINO MR#: [id number] : 1940 Exam Date: 10/13/2023 Ordering Doctor: DR MARQUISE FRANCISCO M.D. RADIOLOGY REPORT PROCEDURE: [facility] - OFFICE VISIT FOLLOW UP COMPARISON: [facility]. PROGRESS NOTES: The patient reports no significant problems fossa micro foam chemical ablation of the right leg. The patient did not require oral analgesics. The patient has worn her compression stockings and tried to exercise daily. Physical exam demonstrates multiple thrombosed varicose veins. Few scattered patent varicose veins are observed. No erythema to suggest cellulitis or thrombophlebitis. No active ulceration. Review of the ultrasound performed the same day demonstrates occlusive thrombus extending throughout the treated right leg varicose veins. Residual incompetent patent varicose veins remain. The patient expressed a desire to proceed with treatment of incompetent right leg varicose veins. VEIN/[facility] EST TD IMPRESSION: 1. Successful ablation of treated right leg varicose veins 2. 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 PLAN: Micro foam chemical ablation right leg incompetent varicose veins Nurse notes, history and physical were reviewed and confirmed, see attached forms. The nurse was present throughout the physical exam and consultation Dictated by: Marquise Francisco MD on 10/13/2023 at 15:09 Approved by: Marquise Francisco MD on 10/13/2023 at 15:10
--- NOTE | 2023-10-13 14:18 | VEIN_ITS ---
Patient Name: DARWIN ESPINO MR#: [id number] : 1940 Exam Date: 10/13/2023 Ordering Doctor: DR MARQUISE FRANCISCO M.D. RADIOLOGY REPORT PROCEDURE: VC EXT VENOUS RT LMTD COMPARISON: None. INDICATIONS: I80.01 Phlebitis of superficial veins of rt lower extremity TECHNIQUE: Lower extremity munroe scale and Duplex Doppler evaluation of the deep venous system from the inguinal ligament through the calf veins. FINDINGS: REGION: Right lower extremity. THROMBI: Negative for DVT. Varithena induced thrombus visualized at mid/med calf and mid/ant calf. COMPRESSIBILITY: Non-compressible segments corresponding to thrombus FLOW: Areas of no flow corresponding to thrombus OTHER: Multiple varicose veins remain largest measures lateral knee 5.3mm with 0.7s reflux. CONCLUSION: Post ablation occlusion of the treated right leg varicose veins. Residual patent varicose veins measuring up to 5.3 mm Dictated by: Marquise Francisco MD on 10/14/2023 at 08:14 Approved by: Marquise Francisco MD on 10/14/2023 at 08:15
--- OUTSIDE RECORDS SUMMARY | 2023-10-13 14:23 | XMS_ITS | CCD ---
Author Name Unknown Address [address] [place] [address] Organization [facility] Care Team Providers Care Center Receptionist Name Role Phone DARVIN HUTCHINS Admitting Unavailable DARVIN HUTCHINS Attending Unavailable FABIANO BALDERAS Consulting Unavailable DARVIN HUTCHINS Consulting Unavailable DARVIN HUTCHINS Admitting Unavailable DARVIN HUTCHINS Attending Unavailable USMAN, JAVIER M Primary Care Unavailable DARVIN HUTCHINS Consulting Unavailable TRABOULSSI, MOURHAF Consulting Unavailable USMAN, JAVIER M Primary Care Unavailable FABIANO BALDERAS Consulting Unavailable AYE MATA Admitting Unavailable AYE MATA Attending Unavailable AYE MATA Consulting Unavailable DARVIN HUTCHINS Consulting Unavailable SAMSA, JAYME Consulting Unavailable MCKENNA KHALIL Consulting Unavailable TCSSI, MOURHAF Consulting Unavailable Shadi Maryh M Unavailable Unavailable [id number], Basar Unavailable Un available Traboulssi, Mourhaf Unavailable Unavailable zz-Sareyyupoglu, Basar Unavailable Unavailab le Javier Mary M Unavailable Unavailable Unavailable SHADI MARYH M Primary Care Physician [phone] Ivory Villanueva Unavailable Unavailable Eva Salcedo Unavailable [...] Unavailable USMAN, JAVIER Jang Admitting Unavailable Traboulssi, Jones Attending Unavailable TraboulssiJones Admitting Unavailable Traboulssi, Jones [...] Ampicillin; Translations: [ampicillin] Drug Allergy anaphylaxis [facility] Repository (1 source) Ciprofloxacin Drug Allergy [facility] Repository (2 sources) Dicyclomine; Translations: [dicyclomine] Drug Allergy [facility] Rep[facility] (1 source) Iodine (And Iodine Containting Drugs) Drug allergy (disorder) [facility] Rep[facility] (2 sources) traMADol; Translations: [traMADol] Drug Allergy [facility] Rep[facility] (20 sources) Erythromycin; Translations: [erythromycin] Drug Allergy Flushing (disorder) [facility] Work Phone: (20 sources) Ampicillin; Translations: [ampicillin] Drug Allergy Blushing, function (observable entity), anaphylaxis [facility] Other (20 sources) Ciprofloxacin; Translations: [Cipro] Drug Allergy Hallucinations [facility] Other (18 sources) Acetaminophen / oxyCODONE; Translations: [acetaminophen-o xycodone] Drug Allergy paranoid and hauucinated, Hallucinations, Psychosis [facility] (20 sources) Dicyclomine; Translations: [dicyclomine] Drug Allergy Unknown (qualifier value) [facility] Other (20 sources) traMADol; Translations: [tramadol] Drug Allergy Hallucinations (finding) [facility] Other (20 sources) Azithromycin; Translations: [azithromycin] Drug Allergy vomiting [facility] Other (20 sources) CT Scan dye Propensity to adverse reactions Unknown [facility] Other (1 source) Ciprofloxacin Drug Allergy hallucinations [facility] Other (1 source) Dicyclomine Drug Allergy stomach upset [facility] Other (1 source) traMADol Drug Allergy mental changes [facility] Other (1 source) Ampicillin Drug Allergy 10-29-19 [facility] Repository (1 source) Ciprofloxacin Drug Allergy 10-29-19 [facility] Repository (1 source) Erythromycin Drug Allergy 10-29-19 [facility] Repository (2 sources) Contrast media Allergy to substance (finding) [facility] 600 DO Work Phone: Medications Current Medications [...] Start: 08-20-2018 fluticasone 0. 05 mg/inh Nasal [place] 2 spray(s), Nasal, Daily, Refill(s) 0 Start [...] Not-Taking Start: 02-10-2016 fluticasone 0.05 mg/inh Nasal [place] (9 sources) Start: 08-20-2018 fluticasone 0. 05 mg/inh Nasal [place] 2 spray(s), Nasal, Daily, Refill(s) 0 Start [...] Date: 07/07/19 Status: Ordered Vitamin D (Ergocalciferol) 78095 UNIT (11 sources) take 1 capsule by mouth every we ek Vitamin D (Ergocalciferol) 76641 UNIT 1 capsule Orally weekly for 90 days Active Vitamin D2 50,000 intl units (1.25 mg) oral capsule (14 sources) Start: 04-04-2021 take 1 capsule by mouth every week Vitamin D2 50,000 intl units (1.25 mg) oral capsule International_Unit cap(s), Oral, qWeek, Refills(s) 0 Start Date: 04/04/21 Status: Ordered Start: 04-04-2021 take 1 capsule by mo [facility] once daily Vitamin D2 50,000 intl [...] days, # 30 cap(s), Refills(s) 0, Pharmacy: [facility], 165, cm, 11/12/22 11:52:00 EST, Height/Length Dosing, 69, kg, 11/12/22 11:52:00 EST, Weight Dosing Start Date: 11/12/22 Status: Ordered Start: 01-31-2022 take 1 capsule by [facility] four times daily cephalexin 500 mg Cap 500 mg = 1 cap(s), Oral, QID, # 40 cap(s), Refills(s) 0, Pharmacy: [facility], 160, cm, 01/31/22 20:02:00 EDT, Height/Length [...] every week Vitamin D (Ergocalciferol) 1.25 MG (40261 UT) Oral Capsule Take 1 capsule by mouth once weekly Quantity: 12 Refills: 0 Ordered: 10-Jul-2021 DO Start : 10-Jul-2021 Active Start: 04-04-2021 take 1 capsule by [facility] once daily Vitamin D2 50,000 intl units (1.25 mg) oral capsule International_Unit cap(s), Oral, Daily, Refills(s) 0 Start Date: 04/04/21 Status: Ordered take 1 capsule by [facility] every week Vitamin D (Ergocalciferol) 85958 UNIT 1 capsule Orally weekly for 90 days Active ferrous fumarate 325 mg oral tablet (2 sources) Ferrous Fumarate 325 (106 Fe) MG TABS TAKE 1 TABLET DAILY DIRECTED. 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; Translations: [HALF-WAY CURRNT USE ANTICOAGULANTS] Onset: 12-30-19 Episodic Other aftercare (1 source) Other parts counterman (current) drug therapy; Translations: [OTH HALF-WAY CURRENT DRUG THERAPY] Onset: 12-30-19 Episodic Other aftercare (1 source) nursing home (current) use of aspirin; Translations: [SERVOMECHANISM ASSEMBLER CURRENT USE OF ASPIRIN] Onset: 12-30-19 Episodic Other aftercare (1 source) Long-term current use of anticoagulant; Translations: [nursing home (current) use of anticoagulants] Onset: 01-12-20 Episodic [...] 09-20-2023 HbA1c (Bld) [Mass fraction] 5.5 % [facility] Other HbA1c (Bld) [Mass fraction]o n 09-20-2023 A1C HEMOGLOBIN [facility] Other Consent for Treatmenton Consent for Treatment [id number] #1.00CD:127 Normal [facility] No Panel Informationon 06-17 Normal -[facility] [address] [place] Work Phone: John 06-05-2023 ALT No additional P-5'-P [Catalytic activity/Vol] 16 Int._Unit/L Normal 6-46 [facility] Comment on above: Performed By: #### 1 [id number], 3676295, 6288830, 3029656, 4135770 #### [facility] [address] [place] [address] Ryder 06-05-2023 AST [Catalytic activity/Vol] 19 Int._Unit/L Normal 5-43 [facility] Comment on above: Performed By: #### 1 [id number], 2467787, 6680507, 5727566, 1000126 #### [facility] [address] [place] [address] BMPon 06-05-2023 Anion gap [Moles/Vol] 12 mmol/L Normal 6-16 [facility] Comment on above: Performed By: #### 1 3232768, 1044759, 0514838, 3432679, 5345087 #### [facility] [address] [place] [address] Calcium [Mass/Vol] 9.7 mg/dL Normal 8.9-11.1 [facility] Comment on above: Performed By: #### 1 2102946, 7359205, 3508884, 1451702, 5423337 #### [facility] [address] [place] [address] Chloride [Moles/Vol] 105 mmol/L Normal 101-111 [facility] Comment on above: Performed By: #### 1 9996932, 9363203, 9586590, 6555712, 3029671 #### [facility] [address] [place] [address] CO2 [Moles/Vol] 27 mmol/L Normal 21-31 [facility] Comment on above: Performed By: #### 1 1417535, 0247522, 9590114, 4261954, 0146484 #### [facility] [address] [place] [address] Creatinine [Mass/Vol] 0.9 mg/dL Normal 0.5-1.3 [facility] Comment on above: Performed By: #### 1 2914081, 8538797, 8211889, 2930549, 2679199 #### [facility] [address] [place] [address] Glucose [Mass/Vol] 103 mg/dL Normal 55-199 [facility] Comment on above: Result Comment: If t his glucose result represents a fasting glucose, interpretation should refer to the following reference range: 55-99 mg/dL Performed By: #### 1 9176569, 2282456, 5085805, 2151220, 6640580 #### [facility] [address] [place] [address] Potassium [Moles/Vol] 3.9 mmol/L Normal 3.5-5.3 [facility] Comment on above: Performed By: #### 1 3828750, 4396538, 6487568, 9687875, 8964312 #### [facility] [address] [place] [address] Sodium [Moles/Vol] 140 mmol/L Normal 135-145 [facility] Comment on above: Performed By: #### 1 6224277, 1668407, 5900372, 6287631, 3775772 #### [facility] [address] [place] [address] Urea nitrogen [Mass/Vol] 24 mg/dL High 5-21 [facility] Comment on above: Performed By: #### 1 7886878, 9356800, 8800262, 5423017, 9320857 #### [facility] [address] [place] [address] Urea nitrogen/Creatinine [Mass ratio] 27 No Units High 10-20 [facility] Comment on above: Performed By: #### 1 7312043, 4373395, 1454017, 9255512, 6888679 #### [facility] [address] [place] [address] CHEMISTRYOrdered By: SYSTEM SYSTEM on 06-05-2023 ALT [...] 65 mL/min/1.73 m2 Normal >=59mL/min/1 .73 m2 [facility] Chem S Glucose [Mass/Vol] 103 mg/dL Normal [...] Treatmenton 05-12 Consent for Treatment [id number] #1.00CD:127 Normal [facility] - Chemistry and C hemistry - challengeon 06-05-2023 Cholesterol [Mass/Vol] 76 mg/dL Normal <=129 -[facility] [address] [place] Work Phone: Cholesterol in LDL [Mass/Vol] 9 mg/dL Normal 7-40 -[facility] [address] [place] Work Phone: Laboratory - Chemistry and C hemistry - challengeOrdered By: SYSTEM SYSTEM on 06-05-2023 CO2 [Moles/Vol] 27 mmol/L Normal 21-31 [facility] Marino mack Lipid Panelon 06-05-2023 Cholesterol [Mass/Vol] 170 mg/dL Normal 120-200 [facility] Comment on above: Performed By: #### 1 7353021, 9575990, 0225761, 8985610, 2543260 ####[facility] [address] [place] [address] Cholesterol in HDL [Mass/Vol] 72 mg/dL Invalid Interpretation Code [facility] Comment on above: Result Comment: HDL > or equal to 60 mg/dL: Low cardiovascular risk HDL < 40 mg/dL : High cardiovascular risk Performed By: #### 1 9221061, 5910348, 8896267, 4754278, 5180737 ####[facility] [address] [place] [address] Cholesterol in LDL [Mass/Vol] 76 mg/dL Normal <=129 [facility] Comment on above: Performed By: #### 1 9838618, 4151605, 0110899, 0877054, 6647429 ####[facility] [address] [place] [address] Cholesterol in VLDL [Mass/Vol] 9 mg/dL Normal 7-40 [facility] Comment on above: Performed By: #### 1 1124896, 8059887, 9581983, 7942680, 9867026 ####[facility] [address] [place] [address] Triglyceride [Mass/Vol] 46 mg/dL Normal <=149 [facility] Comment on above: Performed By: #### 1 3687235, 4598465, 8351499, 6924762, 9788619 ####[facility] [address] [place] [address] No Panel Informationon 08-26 -2023 46 mg/dL Normal <=149 [facility] [address] [place] Work Phone: 72 mg/dL [facility] [address] [place] Work Phone: Comment on above: HDL > or equal to 60 mg/dL: Low cardiovascular riskHDL < 40 mg/dL : High cardiovascular risk 170 mg/dL Normal 120-200 [facility] [address] [place] Work Phone: 19 {Int._Unit/L} Normal 5-43 [facility] [address] [place] Work Phone: 16 {Int._Unit/L} Normal 6-46 [facility] [address] [place] Work Phone: 65 {mL/min/1.73_m2} Normal >=59 [facility] [address] [place] Work Phone: Comment on above: Chronic kidney disea se could be indicated at eGFR's of less than 60 mL/min/1.73m2. Kidney failure is indicated at less than 15 mL/min/1.73m2. 12 {mEq/L} Normal 6-16 [facility] [address] [place] Work Phone: 105 mmol/L Normal 101-111 [facility] [address] [place] Work Phone: 3.9 mmol/L Normal 3.5-5.3 [facility] [address] [place] Work Phone: 140 mmol/L Normal 135-145 [facility] [address] [place] Work Phone: 9.7 mg/dL Normal 8.9-11.1 [facility] [address] [place] Work Phone: 27 {No_Units} above high threshold 10-20 [facility] [address] [place] Work Phone: 0.9 mg/dL Normal 0.5-1.3 [facility] [address] [place] Work Phone: 24 mg/dL above high threshold 5-21 [facility] [place] Work Phone: 103 mg/dL Normal 55-199 [facility] [address] [place] Work Phone: Comment on above: If this glucose resu lt represents a fasting glucose, interpretation should refer to the following reference range: 55-99 mg/dL Physician Orderon 06-05-2023 Physician Order [id number] #1.00CD:127 Normal [facility] eGFRon 06-05-2023 GFR/1.73 sq M.predicted among non-blacks MDRD (S/P/Bld) [Vol rate/Area] 65 mL/min/1.73 m2 Normal >=59 [facility] Comment on above: Order Comment: Order added by Discern Expert. Result Comment: Real Estate Administrator karl kidney disease could be indicated at eGFR's of less than 60 mL/min/1.73m2. Kidney failure is indicated at less than 15 mL/min/1.73m2. Performed By: #### 1 9847042, 7083967, 5767439, 4087517, 7117977 #### [facility] [address] [place] [address] Office Visit (Cardiology)on 06-02-2023 Follow-up visit Diagnoses/Problems [...] Past Med (more content not included)... Normal [employer] Physician Orderon 06-02-2023 Physician Order [id number] #1.00CD:127 Normal [facility] Tobacco Screening.on 023 Adult depression screening assessment No [facility] [address] [place] Work Phone: Fall risk assessment b) One or more fall s in the last year [facility] [address] DO Work Phone: Tobacco use status [facility]PHS b) No [facility] 600 DO Work Phone: Folateon 04-26-2023 Folate [Mass/Vol] ng/mL Normal >=6.7 [facility] Comment on above: Performed By: #### 1 7038336, 2175309, 0177373, 4080123 #### [facility] [address] [place] [address] Vit B12on 04-26-2023 Cobalamin (Vitamin B12) [Mass/Vol] 474 pg/mL Normal 50-1500 [facility] Comment on above: Performed By: #### 1 3906985, 3303350, 7420673, 2511724 #### [facility] [address] [place] [address] T3 Freeon 04-25-2023 Free T3 [Mass/Vol] 2.5 pg/mL Invalid Interpretation Code 2.0-4.4 [facility] Comment on above: Result Comment: Perf ormed at: [facility] [address] [id number] PhD Vj Kaplan Performed By: #### 1 4188938, 3639088, 9389222, 3274812 #### [facility] [address] [place] [address] CHEMISTRYOrdered By: SYSTEM SYSTEM on 04-24-2023 25-hydroxyvitamin D3 [Mass/Vol] 50.8 ng/mL Normal 30.0 - 100.0 ng/mL [facility] Remisol Free T4 [Mass/Vol] 0.71 ng/dL Normal 0.58 - 1. 64 ng/dL [facility] Remisol TSH Qn 3.36 m[IU]/L Normal 0.34 - 5.60 mcIU/mL [facility] Remisol Consent for Treatmenton 04-10 Consent for Treatment [id number] #1.00CD:127 Normal [facility] Free T4on 04-24-2023 Free T4 [Mass/Vol] 0.71 ng/dL Normal 0.58-1.64 [facility] Comment on above: Performed By: #### 1 3085148, 8310411, 9561561, 5457361 #### [facility] [address] [place] [address] Physician Orderon 04-24-2023 Physician Order [id number] 6#1.00CD:127 Normal [facility] TSHon 04-24-2023 TSH Qn 3.36 m[IU]/L Normal 0.34-5.60 [facility] Comment on above: Performed By: #### 1 6309155, 7666175, 8673276, 0480179 #### [facility] [address] [place] [address] Vitamin D 25 Hydroxyon 04-24 25-hydroxyvitamin D3 [Mass/Vol] 50.8 ng/mL Normal 30.0-100.0 [facility] Comment on above: Result Comment: Vit panda D deficiency has been defined as a level of serum 25-OH vitamin D less than 20 ng/mL (1,2) by the [place] of Medicine and an Endocrine Society practice guideline. The Endocrine Society further defined vitamin D insufficiency as a level between 21 and 29 ng/mL (2). 1. IOM ([place] of Medicine). 2010. Dietary reference intakes for calcium and D. [place]: The National Academies Press. 2. Patrick MF, Jennifer NC, Dustin HWANG, et al. Evaluation, treatment, and prevention of vitamin D deficiency: an Endocrine Society clinical practice guideline. JCEM. 2011 Apr; 96 (7):1911-30. Performed By: #### 1 5824152, 4000466, 8699799, 6170138, 4516007 #### [facility] [address] [place] [address] [facility] Recordson 04-07 [facility] Records [id number] 7#1.00CD:127 Normal [facility] Family Medicine Office/Clini c Noteon 04-02-2023 Family Medicine Office/Clinic Note Chief Complaint TCU Discharge History of Present Illness Patient is being seen today for a discharge visit. TCU ADMIT from [facility] 03/20 - Fell while watering yard, unable [...] appropriate mood and affect. Assessment/Plan Home Health Emic-tg-Hfhx Encounter Type: Medicare Reason for Pngo-pe-Sxmj (Diagnosis): DISCHARGE DIAGNOSIS Encounter Detail I certify that I conducted and documented that a yvvc-hl-irgm (F2F) encounter with the consumer occurred within the 90 days prior to the home health services start of care date, or within 30 days following the start of care date (inclusive of the start of care date), preceding the certification of medical necessity. Usp: Yes Physical Therapy: Yes Occupational Therapy: Yes Speech Therapy: No Legal Administrator: Yes Senior Courtroom Clerk: Yes Need for Home Health Services I certify based on my findings that... a. Home health services are medically necessary for this patient, including either intermittent senior living and/or therapy, AND b. The patient cannot [...] q12hr Tyl (more content not included)... Normal [facility] Comment on above: Result Comment: Elec tronically Signed By: New ALBERTS, Jes Jang\.br\Date and Time Signed: 04/02/23 14:12 EDT Operative Reporton Operative Report Indication for Surgery 82-year-old female with left breast epidermal cyst here for excision Preoperative Diagnosis 1 cm left breast epidermal cyst Postoperative Diagnosis As above Operation Left breast epidermal cyst excision Surgeon(s) Paul Gomez Claims Investigator None Anesthesia Quarter percent Marcaine with epinephrine [...] was put in ALL capital letters Normal [facility] Comment on above: Result Comment: Elec tronically Signed By: Patricia GUILLEN, Paul Rausch.meem\Date and Time Signed: 03/25/23 16:42 EDT Family Medicine Office/Clini c Noteon 03-24-2023 Family Medicine Office/Clinic Note History of Present Illness TCU ADMIT from [facility] 03/20 Fell while watering yard, unable to [...] virus vacci (more content not included)... Normal [facility] Comment on above: Result Comment: Elec tronically Signed By: MG GUILLEN, Aaron\.br\Date and Time Signed: 03/23/23 22:28 EDT Discharge Instructionson Discharge Instructions [id number] 6#1.00CD:127 Normal [facility] Discharge Note-Nursingon Discharge Note-Nursing DARWIN HEART :1940 [...] capsule) fluticasone nasal (fluticasone 0.05 mg/inh Nasal [place]) furosemide (furosemide 40 mg Tab) lisinopril (lisinopril [...] Test Results None Pharmacy Information [facility] New Follow Up Appointments after Discharge Follow Up with JAVIER MARY When: In 0 days Where: [address] [place] [address]- Business (1) Medications What How Much When [...] fluticasone nasal (fluticasone 0.05 mg/ inh Nasal [place]) 2 Sprays Nasal Inhalation Every day Unchanged [...] Mixed hyperlipidemia (more content not included)... Normal [facility] Inpatient Clinical Summaryon 03-22-2023 Inpatient Clinical Summary [address] [address] Clinical Summary Person Information: Name: DARWIN HEART Age: 82 Years : 1940 Sex: Female PCP: JAVIER MARY DO Marital Status: Race: White Ethnicity: Non- or Language: [place] Visit Id: Visit Reason: Hip pain-swelling; Fall; FRACTURE OF INFERIOR PUBIC RAMUS, HIP PAIN, FRACTURE OF SUPERIOR PUBIC RAMUS Speciality: Acuity: Enc Type: Inpatient Med Service: Medical Arrival: 03/20/2023 20:01:12 Discharge: Dispo Type: Admitted as IP to this Hosp Address: [address] [place] [address] [address] [place] [id number] Provider Notes: Diagnosis: 1:Fracture of inferior pubic [...] week. fluticasone nasal (fluticasone 0.05 mg/inh Nasal [place]) 2 Sprays Nasal Inhalation every day. furosemide (furosemide 40 mg Tab) 1 Tablets By Mouth every day. lisinopril (lisinopril 20 mg Tab) 1 Tablets By Mouth every day. metoprolol (Metoprolol tartrate 25 mg Tab) 1 Tablets By Mouth 2 times a day. Care Team Members: Attending Physician: Jag CARVER DO Consulting Physician: Marquise Mesa DO Referring Physician: Follow up: Patient Education Information: Normal [facility] Inpatient Patient Summaryon 03-22-2023 Inpatient Patient Summary [...] capsule) fluticasone nasal (fluticasone 0.05 mg/inh Nasal [place]) furosemide (furosemide 40 mg Tab) lisinopril (lisinopril [...] Test Results None Pharmacy Information [facility] New Follow Up Appointments after Discharge Follow Up with JAVIER MARY When: In 0 days Where: [address] [place] [address]- Business (1) Medications What How Much When [...] fluticasone nasal (fluticasone 0.05 mg/ inh Nasal [place]) 2 Sprays Nasal Inhalation Every day Unchanged [...] Mixed hyperlipidemia (more content not included)... Normal [facility] Inpatient Patient Summary [place] [address] Patient Discharge Instructions PERSON INFORMATION Name: DARWIN [...] Dose: fluticasone nasal (fluticasone 0.05 mg/inh Nasal [place]) 2 Sprays Nasal Inhalation every day. Last [...] week. fluticasone nasal (fluticasone 0.05 mg/inh Nasal [place]) 2 Sprays Nasal Inhalation every day. furosemide (furosemide 40 mg Tab) 1 Tablets By Mouth every day. lisinopril (lisinopril 20 mg Tab) 1 Tablets By Mout (more content not included)... Normal [facility] Message from Medicareon 03-11 Message from Medicare [id number] 1#1.00CD:127 [facility] Monitor Recordon 03-22-2023 Monitor Record [id number] 4#1.00CD:127 Normal [facility] Monitor Record [id number] 7#1.00CD:127 Normal [facility] Monitor Record [id number] 8#1.00CD:127 Normal [facility] Monitor Record [id number] 2#1.00CD:127 Normal [facility] Progress Note-Physicianon Progress Note-Physician Basic Information 1. [...] artery disease (I25.10: Atherosclerotic heart disease of [place] coronary artery without angina pectoris) No chest [...] obtained. Bipola (more content not included)... Normal [facility] Comment on above: Result Comment: Elec tronically Signed By: TWIN GUILLEN, Silvia\.br\Date and Time Signed: 03/22/23 11:46 EDT Transfer Documentson 023 Transfer Documents [id number] 8#1.00CD:127 Normal [facility] ABO/Rhon 03-21-2023 ABO/Rh Positive Invalid Interpretation Code [facility] Comment on above: Performed By: #### 1 [id number], 0418171, 3123348, 4464964 #### [facility] [address] [place] [address] ABO/Rh History Checkon 03-21 ABO/Rh History Check Verified Hx Blood Type Normal [facility] Comment on above: Performed By: #### 1 0467549, 7551561, 3630175, 8356813 #### [facility] [address] [place] [address] 65765 ABSCon 03-21-2023 ABSC Gel Interp Negative Normal [facility] Comment on above: Performed By: #### 1 8696018, 7116479, 8392907, 7590204 #### [facility] [address] [place] [address] 37196 Auto Diffon 03-21-2023 Basophils/100 WBC (Bld) 0.8 % Normal 0.0-2.0 [facility] Comment on above: Order Comment: Order Added by Discern Expert. Performed By: #### 1 9637490, 8087719, 8772135, 0367358 #### [facility] [address] [place] [address] 15931 Basophils/Leukocytes Auto (Bld) [Pure # fraction] 0.0 E9/L Normal 0.0-0.2 [facility] Comment on above: Order Comment: Order Added by Discern Expert. Performed By: #### 1 7842740, 6279280, 2908781, 9275253 #### [facility] [address] [place] [address] 20840 Eosinophils/100 WBC (Bld) 1.6 % Normal 0.0-8.0 [facility] Comment on above: Order Comment: Order Added by Discern Expert. Performed By: #### 1 6364990, 4902429, 8369365, 9710430 #### [facility] [address] [place] [address] 92995 Eosinophils/Leukocyte s Auto (Bld) [Pure # fraction] 0.1 E9/L Normal 0.0-0.5 [facility] Comment on above: Order Comment: Order Added by Discern Expert. Performed By: #### 1 2928775, 2383377, 2514695, 6056411 #### [facility] [address] [place] [address] 78944 Lymphocytes/100 WBC (Bld) 22.4 % Normal 14.0-50.0 [facility] Comment on above: Order Comment: Order Added by Discern Expert. Performed By: #### 1 8343805, 5335880, 4277715, 2436122 #### [facility] [address] [place] [address] 67741 Lymphocytes/Leukocyte s Auto (Bld) [Pure # fraction] 1.2 E9/L Normal 1.0-4.0 [facility] Comment on above: Order Comment: Order Added by Discern Expert. Performed By: #### 1 8013781, 5916652, 3340464, 5290408 #### [facility] [address] [place] [address] 68476 Monocytes/100 WBC (Bld) 9.3 % Normal 4.0-14.0 [facility] Comment on above: Order Comment: Order Added by Discern Expert. Performed By: #### 1 4697067, 2390919, 6087315, 4783541 #### [facility] [address] [place] [address] 02333 Monocytes/Leukocytes Auto (Bld) [Pure # fraction] 0.5 E9/L Normal 0.2-1.0 [facility] Comment on above: Order Comment: Order Added by Discern Expert. Performed By: #### 1 2590104, 4691630, 1759142, 8418043 #### [facility] [address] [place] [address] 62580 Neutrophils/100 WBC (Bld) 65.9 % Normal 36.0-75.0 [facility] Comment on above: Order Comment: Order Added by Discern Expert. Performed By: #### 1 8983032, 9407203, 5996349, 9489674 #### [facility] [address] [place] [address] 56243 Neutrophils/Leukocyte s Auto (Bld) [Pure # fraction] 3.5 E9/L Normal 2.0-7.5 [facility] Comment on above: Order Comment: Order Added by Discern Expert. Performed By: #### 1 0463645, 2740528, 7114968, 2054003 #### [facility] [address] [place] [address] 05047 BMPon 03-21-2023 Anion gap [Moles/Vol] 7 mmol/L Normal 6-16 [facility] Comment on above: Performed By: #### 1 6787951, 8500175, 7520082, 0143648 #### [facility] [address] [place] [address] Calcium [Mass/Vol] 9.4 mg/dL Normal 8.9-11.1 [facility] Comment on above: Performed By: #### 1 0485260, 7351115, 0003802, 3065226 #### [facility] [address] [place] [address] Chloride [Moles/Vol] 111 mmol/L Normal 101-111 [facility] Comment on above: Performed By: #### 1 5730010, 0120184, 5700797, 8888993 #### [facility] [address] [place] [address] CO2 [Moles/Vol] 28 mmol/L Normal 21-31 [facility] Comment on above: Performed By: #### 1 9151943, 1307413, 0369152, 7511096 #### [facility] [address] [facility] [place] [place] [address] Creatinine [Mass/Vol] 0.8 mg/dL Normal 0.5-1.3 [facility] Comment on above: Performed By: #### 1 7296123, 6384989, 7827757, 6596937 #### [facility] [address] [place] [address] Glucose [Mass/Vol] 112 mg/dL Normal 55-199 [facility] Comment on above: Result Comment: If t his glucose result represents a fasting glucose, interpretation should refer to the following reference range: 55-99 mg/dL Performed By: #### 1 1465896, 1963833, 4970081, 1620263 #### [facility] [address] [place] [address] Potassium [Moles/Vol] 3.6 mmol/L Normal 3.5-5.3 [facility] Comment on above: Performed By: #### 1 5435947, 1691501, 9676385, 4997611 #### [facility] [address] [place] [address] Sodium [Moles/Vol] 142 mmol/L Normal 135-145 [facility] Comment on above: Performed By: #### 1 1965328, 4575587, 1110685, 4470977 #### [facility] [address] [place] [address] Urea nitrogen [Mass/Vol] 30 mg/dL High 5-21 [facility] Comment on above: Performed By: #### 1 9509508, 2337716, 4486183, 6536442 #### [facility] [address] [place] [address] Urea nitrogen/Creatinine [Mass ratio] 38 No Units High 10-20 [facility] Comment on above: Performed By: #### 1 5336224, 0252655, 4811549, 1790896 #### [facility] [address] [place], [place] [address] Blood Bank ID#on 03-21-2023 BBID# [id number] Invalid Interpretation Code [facility] Comment on above: Performed By: #### 1 2786777, 7426831, 6837875, 9858074 #### [facility] [address] [place] [address] 51858 CBC w/ Auto Diffon 3 Erythrocyte distribution width (RBC) [Ratio] 13.4 % Normal 10.9-14.2 [facility] Comment on above: Performed By: #### 1 8252948, 5697773, 2766130, 5458634 #### [facility] [address] [place] [address] Hematocrit (Bld) [Volume fraction] 34.0 % Normal 34.0-46.0 [facility] Comment on above: Performed By: #### 1 1963981, 1028575, 5994737, 1231906 #### [facility] [address] [place] [address] Hemoglobin (Bld) [Mass/Vol] 11.6 g/dL Low 12.0-16.0 [facility] Comment on above: Performed By: #### 1 2872852, 9943222, 9722016, 0936250 #### [facility] [address] [place] [address] MCH (RBC) [Entitic mass] 30.1 pg Normal 27.0-34.0 [facility] Comment on above: Performed By: #### 1 6754278, 7987573, 2867396, 2739687 #### [facility] [address] [place] [address] 06754 MCHC (RBC) [Mass/Vol] 34.2 g/dL Normal 31.4-36.0 [facility] Comment on above: Performed By: #### 1 0335610, 4929166, 7619261, 9767024 #### [facility] [address] [place] [address] 88869 MCV (RBC) [Entitic vol] 87.9 fL Normal 80.0-100.0 [facility] Comment on above: Performed By: #### 1 9614095, 3083427, 1446632, 4610618 #### [facility] [address] [place] [address] Platelet mean volume (Bld) [Entitic vol] 7.8 fL Normal 6.4-10.8 [facility] Comment on above: Performed By: #### 1 3377518, 4699768, 3811327, 3877191 #### [facility] [address] [place] [address] 95898 Platelets (Bld) [#/Vol] 171.0 E9/L Normal 150.0-500.0 [facility] Comment on above: Performed By: #### 1 7316489, 4649060, 3664201, 2984812 #### [facility] [address] [place] [address] 41826 RBC (Bld) [#/Vol] 3.9 E12/L Low 4.3-5.9 [facility] Comment on above: Performed By: #### 1 9866687, 7943985, 8262591, 2551425 #### [facility] [address] [place] [address] WBC corrected for nucl RBC Auto (Bld) [#/Vol] 5.3 E9/L Normal 4.0-11.0 [facility] Comment on above: Performed By: #### 1 2096924, 0874838, 0335346, 7993993 #### [facility] [address] [place] [address] CT Head or Brain w/o Contras ton [...] MD Transcribed by: JOLEEN Technologist: NICK Simmons [facility] CT Pelvis w/o Contraston CT Pelvis w/o [...] Oral contrast amount in ml's: 0 [address] [facility] [address] Spine Cervical w/o Contra ston 03-21-2023 [...] MD Transcribed by: JOLEEN Technologist: NICK Simmons [facility] ED Clinical Summaryon 2022 ED Clinical Summary [address] [address] ED Clinical Summary Person Information Name: DARWIN HEART/[facility] Age: 82 Years : 1940 Sex: Female Language: [place] PCP: JAVIER MARY DO Marital Status: Visit Id: Visit Reason: Hip pain-swelling; Fall; FRACTURE OF INFERIOR PUBIC RAMUS, HIP PAIN, FRACTURE OF SUPERIOR PUBIC RAMUS Speciality: Acuity: 3 Enc Type: Inpatient Med Service: Medical Arrival: 03/20/2023 20:01:12 Discharge: LOS: 000 08:16 Checkin: 03/20/2023 20:01:12 Checkout: 03/21/2023 04:17:19 Dispo Type: Admitted as IP to this [facility] EVENTS: Event Name Event Status Request Date/Time [...] Care Request 03/21/2023 03:58:43 ADDRESS: [place] [id number] [facility] DOC NOTES: MEDICAL INFORMATION: Prescriptions Given: Medications [...] day. fluticasone nasal (fluticasone 0.05 mg/inh Nasal [place]) 2 Sprays Nasal Inhalation every day. furosemide [...] 8:Paroxysmal atrial fibrillation; 9:Hypertension; 10:Hyperlipidemia; 11:Anxiety Normal [facility] ED Note-Physicianon 03-21-20 ED Note-Physician Basic Information [...] and Complexity of Problems Differential Diagnosis: [] [facility] Data External documents reviewed: [] My EKG [...] Screen Automated (more content not included)... Normal [facility] Comment on above: Result Comment: Elec tronically Signed By: Rhys Chowdhury PA-C\.br\Date and Time Signed: 03/21/23 00:16 EDT\.br\Electronically Co-Signed By: Gerardo Hernandez DO\.br\Date and Time Co-Signed: 03/21/23 07:25 EDT ED Patient Education Noteon 03-21-2023 ED Patient Education Note Normal [facility] ED Patient Summaryon 023 ED Patient Summary [place] [address] Patient Discharge Instructions Person Information Name: DARWIN HEART Age: 82 Years Arrival Date: 03/20/2023 20:01:12 Discharge Diagnosis: 1:Fracture of inferior pubic ramus; 2:Fracture of superior pubic ramus; 3:Left hip pain; 4:Anemia; 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 It is important that you follow up with a doctor, nurse practitioner, or physician?s executive personal assistant for ongoing care. If your symptoms [...] opioids can be used to help relieve ejzzbtmq-bo-wezisv pain and are often prescribed following a [...] care profe (more content not included)... Normal [facility] ED Traumaon 03-21-2023 ED Trauma [id number] 0#1.00CD:127 [facility] Interdisciplinary Note - Jasper e Manageron 03-21-2023 Interdisciplinary Note - Machine Cage Maker CRM spoke with patient. Patient was previous [...] H/h needs. discussed daughter can transport at [place]. Discussed PT/OT recommend SNF. discussed local facilities and gave her a list of facilities with ratings. She prefers [facility] and is aware may need nm side and may have a room mate. [facility] but wants to talk with her daughter first. Discussed will need precert from her insurance for SNF. Reviewed Medicare rights, she denies any questions and signs form. gave patient copy of signed form. . [facility] Comment on above: Result Comment: Elec tronically Signed By: Nate CROWLEY, Grisel\.br\Date and Time Signed: 03/21/23 10:39 EDT Interdisciplinary Note - Chiara n 03-21-2023 Interdisciplinary Note - OT Ot [facility] six clicks score 15/24 = SNF. Patient requires assist w/ all LE self care and transfers as this time. Patient is limited w/ attempts at function d/t 1010 pain L hip and low back area w/ transitional movements. Inpatient OT services to follow daily to progress w/ self care skills and transfers. Normal [facility] Monitor Recordon 03-21-2023 Monitor Record [id number] 0#1.00CD:127 [facility] Monitor Record [id number] 2#1.00CD:127 [facility] Monitor Record [id number] 1#1.00CD:127 [facility] Monitor Record [id number] 8#1.00CD:127 Normal [facility] Monitor Record [id number] 6#1.00CD:127 Normal [facility] Monitor Record [id number] 3#1.00CD:127 Normal [facility] Monitor Record [id number] 4#1.00CD:127 Normal [facility] RAD - Preliminary Cat Scan R eporton 03-21-2023 RAD - Preliminary Cat Scan Report [id number] 5#1.00CD:127 Normal [facility] RAD - Preliminary Cat Scan Report [id number] 5#1.00CD:127 Normal [facility] Troponinon 03-21-2023 Troponin I.cardiac [Mass/Vol] 12.00 pg/mL Normal 10.10-27.10 [facility] Comment on above: Result Comment: The 95% CI (Confidence Interval) PPV (Positive Predictive Value) for myocardial infarction in females is 38 pg/mL, in males 51 pg/mL. The results should be used in conjunction with clinical conditions of myocardial infarction. (Access High Sensitivity Troponin I Instructions For Use, Layla Giovany, May 2018) Performed By: #### 1 7583690, 9051976, 8748600, 6039753, 7667000, 2389918, 4397974, 81433326, 8890774 ####[facility] [address] [place] [address] XR Hip 1 View Left + Pelviso [...] mGy = na DAP = na Normal [facility] eGFRon 03-21-2023 GFR/1.73 sq M.predicted among non-blacks MDRD (S/P/Bld) [Vol rate/Area] 74 mL/min/1.73 m2 Normal >=59 [facility] Comment on above: Order Comment: Order added by Discern Expert. Result Comment: Real Estate Administrator karl kidney disease could be indicated at eGFR's of less than 60 mL/min/1.73m2. Kidney failure is indicated at less than 15 mL/min/1.73m2. Performed By: #### 1 5680122, 7132579, 4885771, 0893498 #### [facility] [address] [place] [address] Auto Diffon 03-20-2023 Basophils/100 WBC (Bld) 0.8 % Normal 0.0-2.0 [facility] Comment on above: Order Comment: Order Added by Discern Expert. Performed By: #### 1 4940303, 7423089, 4487084, 9868100, 9645703, 5808017, 4915974, 18292546, 2589620 ####[facility] [address] [place] [address] Basophils/Leukocytes Auto (Bld) [Pure # fraction] 0.1 E9/L Normal 0.0-0.2 [facility] Comment on above: Order Comment: Order Added by Discern Expert. Performed By: #### 1 0477041, 6418403, 6457645, 7971426, 5739116, 1505811, 8706814, 79760933, 1798954 ####[place] [place] [address] Eosinophils/100 WBC (Bld) 1.5 % Normal 0.0-8.0 [facility] Comment on above: Order Comment: Order Added by Discern Expert. Performed By: #### 1 5717867, 7657168, 6381094, 0226200, 7220167, 4906968, 7420230, 95610225, 9674386 ####[address] [address] Eosinophils/Leukocyte s Auto (Bld) [Pure # fraction] 0.1 E9/L Normal 0.0-0.5 [facility] Comment on above: Order Comment: Order Added by Discern Expert. Performed By: #### 1 6304939, 6732046, 8344117, 8767751, 5267005, 4796304, 4182089, 08713425, 4609831 ####[address] [address] Lymphocytes/100 WBC (Bld) 24.3 % Normal 14.0-50.0 [facility] Comment on above: Order Comment: Order Added by Wayne Expert. Performed By: #### 1 7189353, 7141700, 8195223, 2346858, 0693048, 0781997, 3273485, 68953868, 4501497 ####[address] [address] Lymphocytes/Leukocyte s Auto (Bld) [Pure # fraction] 1.7 E9/L Normal 1.0-4.0 [facility] Comment on above: Order Comment: Order Added by Discern Expert. Performed By: #### 1 4036938, 5444420, 6662833, 7560867, 3779483, 0427434, 2105580, 55693086, 8228390 ####[address] [address] Monocytes/100 WBC (Bld) 10.3 % Normal 4.0-14.0 [facility] Comment on above: Order Comment: Order Added by Discern Expert. Performed By: #### 1 3277261, 3691789, 2923655, 0521714, 5492445, 6461138, 3807607, 10404112, 9061821 ####[facility] [address] [place] [address] Monocytes/Leukocytes Auto (Bld) [Pure # fraction] 0.7 E9/L Normal 0.2-1.0 [facility] Comment on above: Order Comment: Order Added by Discern Expert. Performed By: #### 1 9570626, 9023523, 8137994, 8446070, 7834663, 6173730, 0001756, 76882250, 4577599 ####[facility] [address] [place] [address] Neutrophils/100 WBC (Bld) 63.1 % Normal 36.0-75.0 [facility] Comment on above: Order Comment: Order Added by Discern Expert. Performed By: #### 1 4789320, 9966899, 0316788, 2688497, 8095546, 2235725, 6503935, 35315437, 8879340 ####[facility] [address] [place] [address] Neutrophils/Leukocyte s Auto (Bld) [Pure # fraction] 4.5 E9/L Normal 2.0-7.5 [facility] Comment on above: Order Comment: Order Added by Discern Expert. Performed By: #### 1 6386018, 9333550, 2622291, 5724032, 6381427, 1217180, 8930638, 71621648, 2109300 ####[facility] [address] [place] [address] BMPon 03-20-2023 Creatinine [Mass/Vol] 1.1 mg/dL Normal 0.5-1.3 [facility] Comment on above: Performed By: #### 1 3125481, 1798415, 5693441, 2522961, 2487518, 0328893, 1367370, 64472538, 7781294 ####[facility] [address] [place] [address] Urea nitrogen [Mass/Vol] 40 mg/dL High 5-21 [facility] Comment on above: Performed By: #### 1 8875042, 9511228, 7466306, 8096217, 8470752, 0461784, 3154113, 40293451, 4218337 ####[facility] [address] [place] [address] Urea nitrogen/Creatinine [Mass ratio] 36 No Units High 10-20 [facility] Comment on above: Performed By: #### 1 3615324, 4462072, 3083368, 3292080, 8747940, 3519715, 9340241, 30740814, 1639825 ####[facility] [address] [place] [address] Anion gap [Moles/Vol] 11 mmol/L Normal 6-16 [facility] Comment on above: Performed By: #### 1 8610075, 9545970, 9896368, 1753234, 0272336, 9670015, 3482305, 25851223, 1717232 ####[facility] [address] [place] [address] Calcium [Mass/Vol] 9.6 mg/dL Normal 8.9-11.1 [facility] Comment on above: Performed By: #### 1 7913287, 7811805, 2570682, 0464904, 4843949, 6997164, 5014729, 47404477, 0016426 ####[facility] [address] [place] [address] Chloride [Moles/Vol] 106 mmol/L Normal 101-111 [facility] Comment on above: Performed By: #### 1 9217075, 3410760, 1515817, 9160690, 5897011, 9069057, 4178052, 35949903, 9028929 ####[facility] [address] [place] [address] CO2 [Moles/Vol] 29 mmol/L Normal 21-31 [facility] Comment on above: Performed By: #### 1 7144824, 7187187, 6987685, 9065362, 1905171, 3492944, 0234400, 64396890, 5028507 ####[facility] [address] [place] [address] Glucose [Mass/Vol] 104 mg/dL Normal 55-199 [facility] Comment on above: Result Comment: If t his glucose result represents a fasting glucose, interpretation should refer to the following reference range: 55-99 mg/dL Performed By: #### 1 9495034, 2670932, 1117902, 7181307, 0360392, 4878821, 1657668, 02878868, 1423527 ####[facility] [address] [place] [address] Potassium [Moles/Vol] 3.7 mmol/L Normal 3.5-5.3 [facility] Comment on above: Performed By: #### 1 6107523, 6284835, 4646747, 2567519, 5302407, 0269296, 9951032, 95428744, 4660267 ####[facility] [address] [place] [address] Sodium [Moles/Vol] 142 mmol/L Normal 135-145 [facility] Comment on above: Performed By: #### 1 0276936, 1348956, 9960840, 7219482, 1413954, 7272261, 1336631, 27968378, 3828104 ####[facility] [address] [place] [address] CBC w/ Auto Diffon 3 Erythrocyte distribution width (RBC) [Ratio] 13.4 % Normal 10.9-14.2 [facility] Comment on above: Performed By: #### 1 9585535, 2387383, 4137686, 8134034, 1614761, 8199673, 5663095, 26079974, 1557105 ####[facility] [address] [place] [address] Hematocrit (Bld) [Volume fraction] 35.0 % Normal 34.0-46.0 [facility] Comment on above: Performed By: #### 1 1230703, 2561980, 7168563, 1762016, 4325807, 4769332, 6634350, 90832026, 8269752 ####[place] [address] [place] [address] Hemoglobin (Bld) [Mass/Vol] 11.8 g/dL Low 12.0-16.0 [facility] Comment on above: Performed By: #### 1 0117654, 1344739, 0831984, 3269927, 0057193, 4236715, 3863575, 14411425, 5338673 ####[place] [address] MCH (RBC) [Entitic mass] 29.8 pg Normal 27.0-34.0 [facility] Comment on above: Performed By: #### 1 0648599, 9163708, 6745760, 8048414, 5695804, 0557844, 9983771, 97907922, 3894297 ####[place] [address] MCHC (RBC) [Mass/Vol] 33.6 g/dL Normal 31.4-36.0 [facility] Comment on above: Performed By: #### 1 5930005, 7651942, 9458690, 8702864, 1397136, 3007686, 1159437, 04112338, 5182883 ####[place] [address] MCV (RBC) [Entitic vol] 88.7 fL Normal 80.0-100.0 [facility] Comment on above: Performed By: #### 1 2606679, 4051312, 3376177, 7040138, 1035558, 7851708, 9065243, 95993295, 1301872 ####[address] [address] Platelet mean volume (Bld) [Entitic vol] 8.5 fL Normal 6.4-10.8 [facility] Comment on above: Performed By: #### 1 0371023, 8327110, 2977826, 7269475, 3632558, 0859044, 5531691, 62252875, 7303078 ####[facility] [address] [place] [address] Platelets (Bld) [#/Vol] 185.0 E9/L Normal 150.0-500.0 [facility] Comment on above: Performed By: #### 1 0956468, 3192291, 3765385, 1663834, 6407785, 4720262, 0707785, 48427179, 4204327 ####[facility] [address] [place] [address] RBC (Bld) [#/Vol] 4.0 E12/L Low 4.3-5.9 [facility] Comment on above: Performed By: #### 1 4339778, 0249311, 8339869, 4211912, 3519569, 7279782, 4890742, 76437787, 9187309 ####[facility] [address] [place] [address] WBC corrected for nucl RBC Auto (Bld) [#/Vol] 7.1 E9/L Normal 4.0-11.0 [facility] Comment on above: Performed By: #### 1 0353184, 4539714, 5604060, 7192644, 0238088, 6530370, 0980667, 41080903, 7518475 ####[facility] [address] [place] [address] Consent for Treatmenton 03-11 Consent for Treatment [id number] 60 [id number]# 1.00CD:127 Normal [facility] Ethanolon 03-20-2023 Ethanol [Mass/Vol] mg/dL Normal <=7 [facility] Comment on above: Performed By: #### 1 [id number], 1981564, 7730684, 5045333 #### [facility] [address] [place] [address] Hep Func Panelon 03-20-2023 Albumin [Mass/Vol] 3.8 g/dL Normal 3.3-5.0 [facility] Comment on above: Performed By: #### 1 8512089, 6453905, 8211315, 3566014, 8900101, 7272991, 1971630, 48895601, 2168336 ####[facility] [address] [place] [address] Albumin/Globulin (S) [Mass conc ratio] 1.3 Normal 1.1-2.2 [facility] Comment on above: Performed By: #### 1 6332150, 5902710, 0151701, 5314529, 8962272, 8807508, 9606688, 56969577, 5840840 ####[address] [place] [address] ALP [Catalytic activity/Vol] 76 Int._Unit/L Normal 21-98 [facility] Comment on above: Performed By: #### 1 9531209, 4547746, 9097468, 6046881, 7024288, 9361514, 3576073, 87016975, 9714849 ####[facility] [address] [place] [address] ALT No additional P-5'-P [Catalytic activity/Vol] 18 Int._Unit/L Normal 6-46 [facility] Comment on above: Performed By: #### 1 7392340, 7063245, 0549416, 0823732, 5265971, 0169414, 2372060, 98878874, 0425965 ####[address] [address] AST [Catalytic activity/Vol] 18 Int._Unit/L Normal 5-43 [facility] Comment on above: Performed By: #### 1 8738613, 3572615, 1068237, 1015538, 8576074, 4362086, 7183763, 89344262, 4631752 ####[facility] [address] [place] [address] Bilirubin [Mass/Vol] 0.5 mg/dL Normal 0.0-1.1 [facility] Comment on above: Performed By: #### 1 6588909, 2943627, 5107444, 1285730, 0090075, 9917277, 0128062, 84395787, 8789622 ####[facility] [address] [place] [address] Bilirubin.direct [Mass/Vol] 0.1 mg/dL Normal 0.1-0.4 [facility] Comment on above: Performed By: #### 1 6869935, 8699402, 1914229, 6484536, 2096728, 2322820, 4229477, 58975672, 6490352 ####[address] [address] Bilirubin.indirect [Mass or moles/Vol] 0.4 mg/dL Normal 0.1-0.9 [facility] Comment on above: Performed By: #### 1 4030385, 9761971, 9737007, 1223864, 8884373, 8201388, 2705270, 15740381, 2651869 ####[address] [address] Globulin (S) [Mass/Vol] 2.9 g/dL Normal 1.4-4.0 [facility] Comment on above: Performed By: #### 1 2402842, 7876977, 6452357, 5798014, 2524197, 3889169, 0028850, 43373884, 0493545 ####[address] [address] Protein [Mass/Vol] 6.7 g/dL Normal 6.0-7.8 [facility] Comment on above: Performed By: #### 1 5939865, 7747207, 8385141, 7559434, 8404983, 2351527, 7601626, 16376703, 8908283 ####[address] [place] [address] Lactic Acidon 03-20-2023 Lactate [Mass/Vol] 0.7 mmol/L Normal 0.5-2.2 [facility] Comment on above: Performed By: #### 1 2423712, 1040908, 7696010, 7692905, 5809202, 3425861, 3615377, 08690438, 7759138 ####[facility] [address] [place] [address] Lipase Levelon 03-20-2023 Lipase [Catalytic activity/Vol] 36 U/L Normal 13-58 [facility] Comment on above: Performed By: #### 1 6629870, 4403776, 3103060, 9170228, 1572333, 3111468, 4538330, 47886261, 9596555 ####[facility] [address] [place] [address] PT & PTTon 03-20-2023 aPTT Coag (PPP) [Time] 38.9 second(s) High 25.1-36.5 [facility] Comment on above: Result Comment: Para meter [...] the same coagulation reagent and instrumentation as [facility]. Currently there are no coagulation studies available worldwide for children to 14 days, and no normal ranges. Heparin therapeutic range (represented by Anti-Factor Xa activity of 0.2 - 0.4 U/mL) corresponds to PTT of 56.6 - 109.0 sec. Performed By: #### 1 7116046, 5119458, 2751953, 3784565, 9553685, 1306744, 6546122, 80681773, 4189964 ####[facility] [address] [place] [address] INR Coag (PPP) [Relative time] 1.3 {INR} Invalid Interpretation Code [facility] Comment on above: Result Comment: INR results are specifically intended to assess patients stabilized on long-term Anticoagulation therapy suggested INR?s ?Less Intensive Anticoagulation? 2.0 ? 3.0 Conventional Range 3.0 ? 4.5 Performed By: #### 1 8866859, 3812684, 9169193, 7603316, 1534138, 4332113, 0628260, 43203434, 9682722 ####[facility] [address] [place] [address] PT Coag (PPP) [Time] 14.9 second(s) High 9.4-12.5 [facility] Comment on above: Result Comment: 15 d [...] the same coagulation reagent and instrumentation as [facility]. Currently there are no coagulation studies available worldwide for children to 14 days, and no normal ranges. Performed By: #### 1 6571423, 1006632, 1522599, 4546774, 1809678, 2079930, 0985166, 28156004, 5377206 ####[facility] [address] [place] [address] Pre-Arrival Noteon 3 Pre-Arrival Note Pre-Arrival Summary Name: , Current Date: 03/20/2023 20:01:50 EDT Gender: Date of : Age: Pre-Arrival Type: EMS ETA: 03/20/2023 20:23:00 EDT Primary Care Physician: Presenting Problem: Pre-Arrival User: Lazaro Morales Referring Source: Location: [place] Completion Date/Time: 03/20/2023 19:53:00 [facility] Emergency Department Pre-Hospital Report Form Vital Signs: 141/85 91p 18rr 96%ra Pre-Hospital Report:fall from standing on elequis and asa l leg pain Treatment in Route: Response to Treatment: Misc. Issues: Normal [facility] eGFRon 03-20-2023 GFR/1.73 sq M.predicted among non-blacks MDRD (S/P/Bld) [Vol rate/Area] 51 mL/min/1.73 m2 Low >=59 [facility] Comment on above: Order Comment: Order added by Discern Expert. Result Comment: Real Estate Administrator karl kidney disease could be indicated at eGFR's of less than 60 mL/min/1.73m2. Kidney failure is indicated at less than 15 mL/min/1.73m2. Performed By: #### 1 7770186, 3725082, 5160612, 0165547, 7269200, 6806423, 5039927, 76888601, 2340833 ####[facility] [address] [place] [address] Provider Letteron 03-17-2023 Provider Letter March 17, 2023 [facility] [address] [place] [address] : 1940 To Whom It May Concern, Please excuse daughter, Doris Benito, from work 03/01/2023. FMLA Sincerely, Dr. Paul Gomez General Surgery Normal [facility] General Surgery Office/Clini c Noteon 03-08-2023 General [...] Nat Diamond to record this visit. SILVER metabolic specialist and provider reviewed before signing. SILVER: [...] mg oral tablet fluticasone 0.05 mg/inh Nasal [place], 2 spray(s), Nasal, Daily furosemide 40 mg [...] Recorded 2023-01-04: TP (more content not included)... [facility] Comment on above: Result Comment: Elec tronically Signed By: Paul Gomez MD\.br\Date and Time Signed: 03/07/23 22:39 EDT\.br\Electronically Co-Signed By: Romi Cee\.br\Date and Time Co-Signed: 03/01/23 17:00 EDT IntraOperative Documentson 0 02-22-2023 IntraOperative Documents [id number]# 1.00CD:127 [facility] Main OR Intraoperative Recor don 02-19-2023 Main OR Intraoperative Record IntraOp Document Type FT Summary Primary Physician: Paul Gomez MD Finalized Date/Time: 02/19/23 07:56:54 Pt. Name: [facility]/Sex: 1940 Female Med Rec #: [id number] Physician: Paul Gomez MD Financial #: [id number] Pt. Type: A Room/Bed: AX10/11 Admit/Disch: 02/17/23 [...] Performed Surgeon - Primary Scrub - Primary Housesmith - Primary Time In 02/17/23 13:46:00 02/17/23 [...] and tissue Entry 1 Skin Integrity Intact, Plain View, Warm, and Skin Abnormality No Dry Outcomes [...] Pre-Care Text: Implements (more content not included)... [facility] Discharge Instructionson Discharge Instructions [id number]#1.00CD:127 [facility] IntraOperative Documentson 0 02-18-2023 IntraOperative Documents [id number] 1#1.00CD:127 [facility] Preoperative Documentson Preoperative Documents [id number]#1.00CD:127 [facility] Prescriptions/Work Noteson 0 02-18-2023 Prescriptions/Work Notes [id number] 1#1.00CD:127 [facility] Discharge Instructionson Discharge Instructions ANETALINDAJEAN DARWIN Jeanne [...] capsule) fluticasone nasal (fluticasone 0.05 mg/inh Nasal [place]) furosemide (furosemide 40 mg Tab) lisinopril (lisinopril [...] pain at the operative site Pharmacy Information [facility] Discharge Instructions Discharge Instructions New Follow Up Appointments after Discharge Follow Up with Paul Gomez When: In 10 days 02/27/2023 EDT Comments: Call for followup appointment Where: [facility] [address] [phone] [employer] (1) Medications What How Much When Instructions [...] fluticasone nasal (fluticasone 0.05 mg/ inh Nasal [place]) 2 Sprays Nasal Inhalation Every day Unchanged [...] of y (more content not included)... Normal [facility] Comment on above: Result Comment: Elec tronically Signed By: Nic CROWLEY, Jamee Jang\.br\Date and Time Signed: 02/17/23 14:35 EDT Inpatient Patient Summaryon 02-17-2023 Inpatient Patient Summary [address] [address] [facility] Clinical Discharge Instructions PERSON INFORMATION Name: [facility] Admitting Physician: Paul Gomez MD Attending Physician: Paul Gomez MD PCP: JAVIER MARY DO Discharge Diagnosis: Comment: PATIENT EDUCATION INFORMATION Instructions: Excision of Skin Lesions, Care After Medication Leaflets: Follow up: With: Address: When: Paul Gomez [address] [address] [phone] Business (1) In 10 days 02/27/2023 Comments: [...] day. fluticasone nasal (fluticasone 0.05 mg/inh Nasal [place]) 2 Sprays Nasal Inhalation every day. furosemide (furosemide 40 mg Tab) 1 Tablets By Mouth every day. lisinopril (lisinopril 20 mg Tab) 1 Tablets By Mouth every day. metoprolol (Metoprolol tartrate 50 mg Tab) 1 Tablets By Mouth 2 times a day. TAKE 1 TABLET BY MOUTH TWICE DAILY. Comment: Normal [facility] Outpatient Surgery Discharge Instructionon 02-17-2023 Outpatient Surgery Discharge Instruction [address] [address] Patient Discharge Instructions PERSON INFORMATION [...] Follow up: With: Address: When: Paul Gomez [address] [place] [address], [facility] [address], [address] [address] [phone] Business (1) In 10 days 02/27/2023 Comments: Call for followup appointment [facility] You may receive a survey from [employer] asking you to rate your care experience. Your feedback is important and will help us understand what we do well and how we can improve the quality of care we provide to you, your loved ones and our community. It?s an honor to serve you. Thank you for choosing [facility] HERE ARE THE MEDICATION CHANGES THAT OCCURRED [...] day. fluticasone nasal (fluticasone 0.05 mg/inh Nasal [place]) 2 Sprays Nasal Inhalation every day. furosemide [...] and water are not available, use hand radiation officer. ? Change your dressing as told by [...] dry, and (more content not included)... Normal [facility] Patient Education - Texton 0 02-17-2023 Patient [...] and water are not available, use hand radiation officer. ? Change your dressing as told by [...] take sponge baths. General instructions ? Take jakd-ooa-phlvzbq and prescription medicines only as told by [...] Your wound opens up. Summary ? Take eedg-pda-mdqwjth and prescription medicines only as told by [...] provider. Document Revised: 04/28/2022 Document Reviewed: 04/28/2022 [employer] Patient Education ? 2022 [employer] [facility] Pre-Certification Formon Pre-Certification Form [id number]#1 .00CD:127 [facility] Consent for Procedure/Surger yon 01-19-2023 Consent for Procedure/Surgery [id number] 7#1.00CD:127 [facility] Consent for Procedure/Surger yon 01-13-2023 Consent for Procedure/Surgery [id number] 1#1.00CD:127 Normal [facility] General Surgery Office/Clini c Noteon [...] the procedure. 2. 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 BMI 33.0-33.9,adult (Z68.33: Body mass index [BMI] 33.0-33.9, adult) ATTESTATION: Documentation services were performed after patient or guardian consented to allow [employer] to record this visit. SILVER metabolic specialist and provider reviewed before signing. SILVER: [...] mg oral tablet fluticasone 0.05 mg/inh Nasal [place], 2 spray(s), Nasal, Daily furosemide 40 mg [...] - Denies (more content not included)... Normal [facility] Comment on above: Result Comment: Elec tronically Signed By: Paul Gomez MD\.br\Date and Time Signed: 01/12/23 08:11 EDT\.br\Electronically Co-Signed By: Alaina aClixto\.br\Date and Time Co-Signed: 01/11/23 14:32 EDT Patient [...] ovarian syndrome (PCOS). ? Binge-eating disorder. ? [place] syndrome. ? Taking certain medicines, such as [...] food choices, such as grocery stores and [employer]. What are the signs or symptoms? The [...] 0?1 drink (more content not included)... Normal [facility] Coding Summary.on 01-09-2023 Coding Summary. CD:[id number] Ww+PGhlYWQ+YG1XXQWsJ 38xiJVhzY3mA4BMYPmKS ywgQVBQTElOSyIgbmFtZ U3yqVAdJYAy IC8+UD4lQLUyEshttDCz l6T7yOT7Q81fih9gKSdq mMP2YIFsOdLyxujox9gr gOr6NDjtNpraNsMo WFAtdW97HCP1qB01Rw10 bZIwzSMiz1mqhIe9CaTe IDLtRVY1nRcaUUjgx6Hb KLBwV63drYSzz5E5 IGNvbGxhcHNlOyBlbXB0 kB5eMTjtwwypw1ygbiga Nrr8al68gNWvb8J1aZW4 O0GscxV1CDClxONv CothwZFMhK7bghkxh6fg jlahKbGvFKKiZNu7ZMu8 IMVkqPnpQcNoJT85LSY6 BWEbqkNhW0ZuYXNw mKmnDnF6t7M1Af8GU3GE RxhsF2UBQKTJNMdliHT+ RZ22su87I2HmActmRzr6 SPNvRZA7kKC6kJ4k OJUyUUzpo7Q3nNC4A6Ly fnMlym6sl7riKCJhZSai N91rzBXhc6V5JRRgpKE2 FKZypCqrIuFgbL46 Oyc+KULtgYxns2KvNugi m9enj5tpdKn6ZhhtSHWt wjQfwSdkSHG0t0HjUs6v GDWklUM1dIK5mH6i XxNoXaD4SRskF625XpQk fFCiXqwxM64qA8DjrYN+ GEVzRim7TTNlbNtrZB0u I9RrKNHzqtyvtJBz hUbhXQ3lMUVezigpNRDo wG6jAQKwT7l7YuOdXpR6 HJonV7GrNNEqojstGe18 yP9gFxMeWcB9RZwo D7PrfwJ1KERgvDInQCvj JRO8X70jz1Y5VIUwMETp DDF9rQB2iP8kzKruxmdy bGVmdDsgdmVydGlj SVmeJGawK782FXWveDit PkNvZGluZyBEYXRlOiAg MDQvMDEvMjAyMzwvdGQ+ EFGgAVY0eProKHZy sGMeBNlsTb4gsTtwdYds QW9oQSCgnfqwJPOooK7c ABTlwFFzwGppAG1pBVSe ntadq408FrHyOOY4 KUGssVXhV3QccK9dVyYt XGKwIEMnG1HuvVPdECup A918WYxnFlD8NPRqusHh U1NzYBEgrLncSwN7 y2I8Vm6Oe1XkelzjU2Hf hKSrXrVnSiwlQIj2Q1Zy PjwvdHI+YB93ZJIuGN76 CCe1CSN6jNirMUda XUIbB4NkzZ9vXfDvMYMi ZGRkOyc+PHRhYmxlIHdp ZHRoPScxMDAlJyBzdHls RU6aEg9sJEApMWFi rRvhzWWbTqUcx6vhTXSd BLvqFN8ecRukJ9UzdYB5 YPQsp4k1To26A30hJ3Kh dXA+TZKncQU7qUL1 oF8zLnRiTtJ2QUyfW209 CxNpvSYaIaurr7bmi8zm yOh0VxK1SRBqryRuxMpb SOV0o9ZwXu01Q83n IHdpZHRoPSIxNSUiIHZh hLikga7wbG3dXq7+PGNv xHK0hIG3oN1oIjBwRaS4 NWyqT566KnKzwKOw Lalcb9uaz3qsdRd0QyJb TEPusfBtvCavUTU5d0Kx Be53Q8IrcMgqv1IvCzw5 xh24sPCvi5L5gNM2 W5AdRGTewudekWPhuNop XJ7aQGGdlmrnTPJppV7s BDQvH4l4YxBpVyT4VYpq Q0IurqM8SAWfsRRi QRWkoANUjT4ybqivt0ic nhriQvHhDCPjRCp8XSs1 KTRsyYqbHzQdFJV1OkX0 MCR3pFTbpW8rpJrf tucvgY2kVvc+EYY3xMBq qFNLQT0pRqwibQI+PHRk DFX6pKqzYJqgRUWsnE8w CAItZ9i2IpNdWmY4 ZAhnF5FnknT1FQGelUSc ZQFhwOFDeQ5glelkm6ij cguyYdYoHVLiJSv1LKa1 LWFsaWduOiBsZWZ0 GnT0QEX2yMLkbL4doPir geqzgQ3sPhe+QmlydGgg KGS7KVo9V1IuDcc3JQYz lAlsQG1ixZByKAkk Wr7exMxujTsfEO0xPJIe amshr400VkIcw3udDKZu cRYvEXesCGJ3W21bp8F6 ULViNTCeHPR2bLO4 qC5ucPabqtygaIJupGfl hhEjxMffMDcfJVcyL055 EWBpjOftEgLxRTg5D8Ku Pkx5TCFbjVttPR4a oBNbJKoiXm5cgUnhfCqb AJ8eZTOjghvzh029ArSp a3ydNVUetPWtEZtbBNE0 Z11fw3W0JMCfPKCd PGM8pEN5eB2rvOmgviqr bGVmdDsgdmVydGljYWwt VQgyI222PUXpwApsRvRz jBy5I6PzIhf3LAYh vWbyLR5ysEMzDYofRa1u fIksrMhlCK6iTJSciorp i718QuCfb7ixMGXtvHMu XSakXFR8C90un0U5 EYYcESGjKFE2uSQ8sT1n bGlnbjogbGVmdDsgdmVy jVdyVRvrFWtgJ059XWCe cDsnPlBhdGllbnQg MYvmHBc3I3LmPzxmlTS+ BV88VMGeXZ13sOVnyJHv e0sxwSd3HfEkWCFwXFR8 eNntRZmfa0XlTNGr O02wuDOfr8H1VVPnoQsr aVNhFuYkeJJ3aX6gWGsf jyqio4hpufoaVmkii6rm pn32wL52R51qDXje ZHRoPSIzMCUiIHZhbGln gy8whZ0wVq7+PGNvbCB3 oRS1cY0mZYIfPjQ3QAdl X642AgLraRNnGgxl p0rty7kdmBu5ZzZ5FMMh quJlaDqaYDC1b2HeMd70 X47nUHtiLLUpJROsVWZi VAOmlPkola3xbL6k Ii8+HRFnsWG6gGO3zF5m PnUaXdV6MDviT769OgGv vLScHjnjS85vV0TumAX+ WOVkMsh9QPGsvZby GC2cgPWuXYieBz3lVVW4 GtSkJjBqELosP9SsQBBd pnqjljgghRJ4WFFgEHHw wY13Pz7cfEjkZLEo lNRJyV6zsbijr9wlyljo LaFuEORwCJz3MHk0RNDp dQtpKrAfDGD2YqZ6FSD4 sRFlxM4zgIpentge lS7cA3XoWVXfsymhYd19 vD0mDaBgBrR1DBzgPsw+ C17PLWdKDYUUMPUVFQOW YNR2B4ZuAbi5QNKi mAziMT0buROxAJlrPf1p tKsdmRidCO6hSYWmrscs FZZfzF4tYYFjgHDnpFdq JL7aYYBrcrqum981 TtJaWZP3NVPlsXTqF8Be aI8iYoJtHZPmSALdD5Zu uSWxBVzmG586XZzmOwK2 TMMenxAnU3ItIOBv rDsiJkW7j3J6Rc1pVD9n Gd4aFGPnDZ69GI31uQTz k1D0nUG4B0QlGKUixegf hcigmOF9LTMsYYYn kK30yLHzBHhfLg3yw8R5 j102ZHOpJZGhpW58Py2i gIbnVNDdpNOLlG6hfwib o4oscccgYhIeZLSt NIr8CLv4APPngTusRlTv UDB6XgR6HPZ9rKOpfY9d fRamhdaxyA7mZln+ODAg LNGppyA3B7TzZmu9 WKVwzObsIU9veKYoTJzz Wt1nuRfioScmMR3pMMQj xbhzFWLybE9eMIRscCGv pFegQT1fCDDbxkhd b971BcDyAUK9ZLOrbLTa E5BpdU3fRmHvIKIyBHSq Z5UpeIGxSNnwN731KFph JfI3SEEaunMoY8Aq WYFqsOxuNxR8r4M3Gj0Z MN3zbTB1X6ZzBra6ZQPt jMheCM4vmPXhHMzlNe1t mZtgdYdfUE2lFTFi sqriTLLphX2uFPOmyRUo zGrwPM0qTSYdwnneq563 MaMyJIW2GXEhiGLpW9Li zI9yQtPzLOJrDMEi I4SbmUWqEJtcF210AGls QyP8EJQdxmQvG2OwXWFu wTfaWaQ3h8K9Jw1SMZZw QFAiaOWiPbP1Y4Vm PjwvdHI+XN08MCBdWU79 uTUrmYKjr5btgUu3RqWn ZBIbELA7uZysNGwjt3Ts IYXhP83qqTFqg1X1 IGNvbGxhcHNlOyBlbXB0 iU3lXNgqpyruu9amabkz Vtdkr2cgzo81tX37H20k IHdpZHRoPSIzMCUi VEWjmYcsar2jwN2gYh8+ EHWljSJ5rSC4mQ8sBaKx MuJ9ZEswC216WwYkpNHn Sxiaz4wce1woxUi0 IjIwJSIgdmFsaWduPSJ0 g2BeXm12M81hRRkkTWXo FAPkVJTjTERcaUvfkb4e aI6uNd2+JQ8lh4bj xl13bS25cSR+PHRkIHN0 yLhzDHzePTBpoX6qZPpw DdI8CVZsRtYfnT46rJFx QVbrBe0vuKrbrTde HR5iNRAraebol608XkGj j3gkAUVtkGKpKRobAWG8 O73sd7U9PKSxKWVvECF0 cNU6qO6xjBhjupcm bGVmdDsgdmVydGljYWwt RQmpW750OVCazMgxIbUq hWKwK0haksDIRP9tZvgm dGQ+YNQgVDQ7bLgs SIcvVQDrdI0pKGBoR6j9 NeQqTfP4EDkrN6KkaaU3 KWCetFXkRQCtuDLZyM5u zcjck2xwsnpwDhOr BAFkXWd2IEn9SPIgaYbh UaEnDGV4RiV1VTJ0sHDs qY1ibHzhsowyvB4jWmu+ RklOOjwvdGQ+PHRk WMN8tSqvNRagGFQqhA2f GCVxJ0y0UnVxZtU9NGqz J8PitlK2SNRvkXZbALDf gGTZqH8irenqm7ii eyzvQjHcAORmPAm8ICp0 CWOszMjjDiReBHL3WgC4 FRI5jKPkqB6qhNjyugis zX7lPcb+TVJOOjwv dGQ+VKFrBIQ2zFrkRYri XYBziX9iZOWsF9r8ByFb WsS9LTnbA9OgtwP7HIGz fMDvDZFcyEGKuK1e boxtn0prgourQnQfNQOm FWf7ZAe7YRTteFtaYqNa OIY1ZpR7PXT6tUOhaK6n hCkzbptwpC9uQre+ XAB3NRN1SD82MY20Q6Nk PjwvdGFibGU+PHRhYmxl IHdpZHRoPScxMDAlJyBz tNsuBA3dEs1pSJAn LWNvbGxh (more content not included)... 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 female here for mass on left breast Patient presented to [facility] on 12/28/22 with mass on left [...] breast cancer with a lumpectomy performed at [facility] performed 25 years ago. The patient was [...] evaluation and attempt to obtain records from [facility]. 2. (more content not included)... Normal [facility] Comment on above: Result Comment: Elec tronically Signed By: Patricia GUILLEN, Paul Walker\.br\Date and Time Signed: 01/04/23 14:16 EDT\.br\Electronically Co-Signed By: Alaina Calixto\.br\Date and Time Co-Signed: 01/04/23 12:09 EDT Coding Summary.on 12-30-2022 Coding Summary. CD:[id number] Ww+PGhlYWQ+JR2YUMSvX 82txHIdoW4rN6MWJTiSG ywgQVBQTElOSyIgbmFtZ J4mnSEzJHUi IC8+XD5lNLKfHxuknHYy l5D0nYA1U06cho7hPCit lOP5HNDqDoTrzneop9qz oUv6NNulKpoeYfTn PMGauF72AYI9zS70Sv53 uQFlrRWxu2bhuXt5RhHc JCUuKCU2rJhsVRrll3Bb LLFkA58vdAQvk8B0 IGNvbGxhcHNlOyBlbXB0 zV4pAGbdaydgd8aousxj Qwe5vl25hNYjd6Z1hUN8 Y0YumdV5WCAysZBy CyikeOUByH7voghrx3fh zgjqGqDwOZLdYLj5YPi8 HIHqeQhbOsDtFA95PTP7 QDCourMbU6PrGAMc dTodMgU4k3Y7Oh7LY1WM RqdvZ9MTEXWFWTbooPY+ QP59di31J0GlUrpuDix4 CADwVLM0zTW5cD1l NEGeIFhlt5V6mCC4D4Sr kiNzck4us1ojIBFzLMeq B19ddZYok3G2CEAnlXL5 RLHfgFmpWcGwoO43 Oyc+OSZipXuak9AiWepq q6wzj2yjfXi3DlyyZQUb qdRrmHgaPVP9o7QuTq7a WVGrvJH1vXK9oE3k MvAeAvV3WBkjE260GrNs gZMvXrxrU91sN5MadWI+ HSDcPxq1QFGepMdjGQ9h Q6RkBYExhrkuuHOc pQwmLT9aNFOrobuuKOHg lA0yPYHfJ4o0QrKvOnU2 DXufO4MtPROilpwdSh38 cR2oRmPaLeO3UVmb O6UoahP5GDZykEAxAQhx YKC5J45eo9M0VGVmFYDk ZFM3fTG3sC8ruXfeqkus bGVmdDsgdmVydGlj WKcmQVsvM255MJJluTzi PkNvZGluZyBEYXRlOiAg MDMvMjIvMjAyMzwvdGQ+ AAQxBAB4kBtyVLKs hEKhKZuoZr8siUirfMzf QV8mZJUrjzfeELAjvR7l BILevRPmaAyjSO9mSSYb ednez560UcDlYYL3 NIFosRYuK6QiwA3zSvOx SLAuMOUzP4SxhXGuLGyp X853VRnsImN4HMZjnlEc S2MuCGBlePohYlA1 x1Q5Ck8Sh3XhvbleY7Qa lQDhOrUfTvvwFRd7P0Nc PjwvdHI+WS88RGMaGK21 NIk7IDQ5hKibHNey EGEwQ8FlsE9xIaSkHVPp ZGRkOyc+PHRhYmxlIHdp ZHRoPScxMDAlJyBzdHls NL3lCz0zJUGuDLEm zHbwgHVcSdVxv2bmVOUh NUcwBO5kiEbuM6NbkRN0 BSEnx9j3Hn67S72pX9Iw dXA+HEYhrAZ7mTT0 eN3pCoDjSxF6NLetX052 WrBbjXOkAxjyk1fir4sn dKs4SiZ6ELKmhrPitBic PSZ4e0VxNk07J80q IHdpZHRoPSIxNSUiIHZh oRybaj5aiL9sHa8+PGNv zOI3uRT2xV9aWoEoEyE5 OSrfP814FbSihJQn Ihemy2qas5ssuAj5KcUt EKHovjGjhWtlBCO6w5Nk Po84K9AwcVyct6QbQcc9 ci27sGWor9F9sQL1 L3NaWEMzflitrEGzjVeu NO6pRXJsqxivCYMyaK0f UZJrI9v0PwWoLxK0QPed Y3JhmpW8XPPmkWNo ZWDvfFGXmC9axfcoy0sm gwkrAnBeGBHoYUf4DUk7 OQAohIffOxXcVEL5XjO8 QYD2lZHgnU6xbIdg agmrhP9hDcr+TFK3gWWt uXAXUK9cYnopiPL+PHRk APH1xAtiZTikVCMtxW4d PQUhY3z3GrWrBsU6 UMmtR6FhimB5NZTahQZn WWBjgTLCxV5sljxmc8kq duohIxCzCSMjVIk4ZNw0 LWFsaWduOiBsZWZ0 UxH8WUR5cWSusP6tzEjv nmwkjQ0qKmv+QmlydGgg TTU9TSr2B1BzHpy8LTKr pSfhCF4wnYPmHEqr Wr9opPehzZliWL9pRMAn idzxp021WlHqp6rhQIGg vFKwAGfhCEQ9D07lq6N7 CXYqLHYhCMS0aOZ9 aA5djXgvvoewkDFabOhx nlSwlCptINnnMNivR139 HFCsxCxxMfHnTAr3G6Jn Con2DMLjzJktZV5n tERdUFhnAl0npPwykAeb MV3dKUNzdmtkk975VvTh k5mqYNIzuUNzHBmeBMR4 A13xn9I8ZKQpLERu WWQ7gPS6sS4naUrxjqbj bGVmdDsgdmVydGljYWwt ZScxQ355CLNbiFmmAoZo fCu3W6QlRze8MBSf kSsxZA6rlSTdEHzrMr4y vMhbgQnqLJ3eIIPeglzc r424RuHsk7llBRHvpALk RZuxRPP8W13js2O6 UWSaJNCjCAG4hLL7oD9c bGlnbjogbGVmdDsgdmVy iWneRAqnGEkgY929WBQc cDsnPlBhdGllbnQg UCkoPEu0J4EqEzcppMZ+ TA34ZGHtRB79mBBkrBMr e9ywbNi0OsJrPNMkJHJ0 fCwpVTidr1NmSWDv O34ynGGzk8Z2VEKovEni cFSwMyKqjRD7rS5sOVpm whppd1vyrydjPvoof4dh df34oX61F99oYCik ZHRoPSIzMCUiIHZhbGln ht7iyE4lJn1+PGNvbCB3 uLB4xQ5bCCCrCsE8YGgn C202TeDugJVkAkjp o4hxy8qsbOo5BmN4XXXa uoHvoOrhLUG8w9ZzPr06 A66pGYcrIBPpHZEiECQw KXRpwBrzvf2yfK2m Ii8+HQHstRZ4wXI6wW9b OnCyRzJ5NYfmC954RuSw uYEeXcvhP13bO7WkcMN+ IAQhKnz8TRGvlZmg EK1alLLgHEnqSe6aMZT0 XuZpZvRoWVqfQ5TdCKLt gggcvtmfdZK3ZKMuQQUh zX42Rc5kmWguVGAb tADTjS7ccwydy9gcdfdi CyBbUJReJEm8EEg0YYUv bFkzUjBhACK9PwZ3VNN8 eJVqcY1riNthilwv qZ1kS3OiAHWbnqgpNq12 mY7zYlUtIhC7ISosHnz+ I33JECmXJVZQYGDYHRFT YXR3S9PeSqh3TXMj lHhxES9lnWLrXCssBb7l iEdlyMfpXF6qCSQbzbes NLQgqM3mZZDeyXOygKtr JA7mPNUjxvqlx149 AoKhJNC2CNXoyTBfF5Wb dZ8yPuPiMWCyMDYwE7Vz qQOxRMedJ343CAjqGwN2 XBPahnKfW7QuDEBa oQupGoS6g2P0Gv5tBF0k Rx7qURDeGV19BM73qFGf j3X1xCF3A2YjGALolhqm mgvrnHD6WZLfPGOa fA58fPTlEPmoDy7pr8F4 o335XHPaFDUauR77Kr0n tWprMHVlpZDGkV0uqinz c3tqitliLtPyGNXh ERc2TMi7WUUkwOkpGqDx KBP2VbZ7PTR6sMJlwM9x tFamotkrzU3iAum+ODAg EFSctaY8L3IjXfk0 XUPntGrdKI1ysOUvYFfs Xr3lvNdvuDvoLX4hHCVz wyrtHQDybE3nUXBmiUUh gQciZP2pDJIbeaaw c275IkAxMVK7WOItrVRw P1EqdF0fXqAtIIJyVMFy X6RsvTHdGBhxW772HQoz YvR4JUIkshMrP6Ew BYJmxRvbVyC2d5S4Px2O FU7wdBA2T0WqWem5YEKe zDkeJX6rpZNcFHwkZc1k zRxylJhhEV6xTJAh irirCVIkrL4qFXWkxCFh mVepAZ4mAOJeqehoo923 VkUzLXO8NNRexVWbT3Gh rA0kWzJpJMIsKDHa P2FclLOhACcgD693BNjs PwB4UKXromFcW4UjSOQp dWzgVmN3u1X4Pm5JuMKy D4KzU6x5M7FpZrrr dHI+RZ91TQTuSY14bZPi cTQya5hphCs4UqElFGTh UZS6gWafQNedh9DfCKHs U34iyVGhf5S0BBPa aUkgdUSgBtAkaIB4pM4d MGpxovvej4sauyhhNdxu r7evvl86hY87M40mUXwv ZHRoPSIzMCUiIHZh sRnixo3lnH0jZz9+PGNv uXF3zSR9sC4xTqPoGvW2 NJmvO590GzXblXBxAlhe x6cre7iyvCd6WbJw FQWijxJxgWmhSAU8a3Wi Lh37P90vMEjvQULcYDQe PDCaGDQkiTwjoj5guQ0a Ii8+FJ5mp7jxck54 zO78aEL+XMNbYET9gIoh KBpnDYYtjZ3mLPzmVrI4 XGMfIdCkeL83oQJbEJbn Vx8rqTxtlPatOE8h QTBskmatu156XkUtc2os ABVwlPLsPFubAKZ0X78w x9A0XBQcGWBiJVE7uTB8 xN1vmGjlvlscrKGo dDsgdmVydGljYWwtYWxp [id number] U4vsivXJIA6dZpwlpSM+ OHOyRRJ9sUqsUYyh AEAmpJ3gADJtE1m4ZvYm WeU7UMuqQ5KxodA5VEMo xMIbZXUzzEMKzF4fgsdt n2bzlwfvZaJkDXYd NDd2DYu2DFCpkQltHlCv AKP3IzV6CUI2gXGnvP9g vMhfrobckB8rZbf+RklO OjwvdGQ+PHRkIHN0 pGohIHavLIHogR7vFEIl W0l1TlJrIaH8SOusX4Tt tzM8SSTqfWPrCYKfcTCS yN0tgvlyf1tgyxth WgIkUMTbCWh7IEr0KBRp aTmqZbVbRIL2PzN8FYO3 fNAemS8evXzjqtkhgT3s Oyc+TVJOOjwvdGQ+ LBFuUYM2rKkxDXxgXBHu pJ8yCBYqR3w4EmVaKeA6 BTnqJ4ZhesA3ZDVmxILm LURrgWYHeD5ikdih n8igxoruNdQjNBSaKYp2 BBe3YZHraAjnVsIpFLM1 LiT0STP5bEWtcQ4iuKbq nesxkU3gZsg+UGF5 HGU7KC96JF10K7PsGavr dGFibGU+PHRhYmxlIHdp ZHRoPScxMDAlJyBzdHls OI1yUx4rQKNoLRRr bGxhcHNl (more content not included)... Normal [facility] ED Note-Physicianon 12-30-19 ED Note-Physician Basic Information [...] and Complexity of Problems Differential Diagnosis: [] [facility] Data External documents reviewed: Not applicable My [...] QID, # 40 cap(s), Refills(s) 0, Pharmacy: [facility], 146, cm, 12/28/22 16:31:00 EDT, Height/Length Dosing, 69, kg, 12/28/22 16:31:00 EDT, Weight Dosing Disposition Plan Patient Discharge Condition Stable Discharge Disposition To home Discharge Prescription List Prescriptions cephalexin 500 mg Cap, 500 mg= 1 cap(s), Oral, QID Follow-up With When Contact Information Dae LANDAVERDE In 3 days 12/31/2022 EDT [address], [address] [facility] 3 [place] [address]- Business (1) Additional Instructions: Follow-up for evaluation and treatment of breast abscess JAVIER MARY In [address], [place] [address] [place] [address]- Business (1) Additional Instructions: Patient Education Skin Abscess Attestation Patient seen and evaluated by the physician executive personal assistant. Attending physician was present in the emergency department and supervised care. This visit was performed by both the physician and an APC. I performed all aspects of the MDM as documented. This report was transcribed using voice recognition software. Every effort was made to ensure accuracy, however, inadvertently computerized optical instrument assembly supervisor mistakes may be present. Appropriate healthcare PPE [...] inpatient medica (more content not included)... Normal [facility] Comment on above: Result Comment: Elec tronically Signed By: Rhys Chowdhury PA-C\.br\Date and Time Signed: 12/28/22 16:48 EDT\.br\Electronically Co-Signed By: Paul Teixeira DO\.br\Date and Time Co-Signed: 12/29/22 07:13 EDT Consent for Treatmenton 12-10 Consent for Treatment [id number] #1.00CD:127 Normal [facility] Discharge Instructionson Discharge Instructions [id number]#1.00CD:127 Normal [facility] ED Clinical Summaryon 2022 ED Clinical Summary [place] [id number] ED Clinical Summary Person Information Name: DARWIN HEART/[facility]_Nadeem Age: 82 Years : 1940 Sex: Female Language: [place] PCP: JAVIER MARY DO Marital Status: Phone: [phone] Visit Id: Visit Reason: Abscess - simple; [...] 12/28/2022 16:50:39 12/28/2022 16:50:39 12/28/2022 16:50:39 ADDRESS: [address] [place] [address] [address] [place] [phone] [facility] DOC NOTES: MEDICAL INFORMATION: Prescriptions Given: Medications to Continue Taking That Have Changed [facility], [address] [facility] [place] [id number], [phone] START: cephalexin (cephalexin 500 mg Cap) 1 [...] meals). fluticasone nasal (fluticasone 0.05 mg/inh Nasal [place]) 2 Sprays Nasal Inhalation every day. furosemide [...] Follow up: With: Address: When: Dae LANDAVERDE [address] [place], [place] [address]dict [place], [facility] [address], [employer] [address] [place] [address] [employer] (1) In 3 days 12/31/2022 Comments: Follow-up for evaluation and treatment of breast abscess With: Address: When: JAVIER MARY [address] [facility] 2 [place] [address] [employer] (1) In 3 days DIAGNOSIS: Breast abscess Normal [facility] ED Patient Education Noteon 12-28-2022 ED Patient [...] these instructions at home: Medicines ? Take wiof-nux-qenzdnv and prescription medicines only as told by [...] and water are not available, use hand radiation officer. ? Check your abscess every day for [...] Document Izzy (more content not included)... Normal [facility] ED Patient Summaryon 023 ED Patient Summary [address] [address] Patient Discharge Instructions Person Information Name: DARWIN HEART Age: 82 Years Arrival Date: 12/28/2022 16:22:27 Discharge Diagnosis: Breast abscess Primary Care Physician: JAVIER MARY DO Provider Information Primary Provider: Paul Teixeira DO Advanced Planning Intern:Rhys Chowdhury PA-C The exam and treatment you received in the Emergency Department were for an urgent problem and are not intended as complete care. It is important that you follow up with a doctor, nurse practitioner, or physician?s executive personal assistant for ongoing care. If your symptoms [...] Address: When: Dae LANDAVERDE [address], [facility] [address], [facility] 3 [place] [address] Business (1) In 3 days 12/31/2022 Comments: Follow-up for evaluation and treatment of breast abscess With: Address: When: JAVIER MARY [address] [place] [address] [address] [place] [address] Business (1) In 3 days In the event that this physician does not participate in your insurance network, please consult with your insurance company to find a nearby participating provider. Patient Education Materials: Skin Abscess A MESSAGE TO ALL PATIENTS REGARDING OPIOIDS PRESCRIPTION OPIOIDS: WHAT YOU NEED TO KNOW Prescription opioids can be used to help relieve xnbyzazi-hd-crfxel pain and are often prescribed following a [...] and overdos (more content not included)... Normal [facility] ED Note-Physicianon 12-12-19 ED Note-Physician Basic Information [...] MARY In 3 days 12/08/2022 EST [address], [facility] 2 [place] [address]- Business (1) Additional Instructions: Patient Education Venous Thromboembolism Prevention Deep Vein Thrombosis Simms Cyst Contusion, Gzys-bw-Wmye Bleeding Varicose Veins Attestation Patien (more content not included)... Normal [facility] Comment on above: Result Comment: Elec tronically Signed By: Nichole Petit PA-C\.br\Date and Time Signed: 12/05/22 11:57 EST\.br\Electronically Co-Signed By: Bruno Dowell MD\.br\Date and Time Co-Signed: 12/11/22 17:54 EST Coding Summary.on 12-07-2022 Coding Summary. [id number] Gh0bWw+PGhlYWQ+PE1FV WOuQ61saKMgbF4HU3mRG E3GCUFVHNKRGE9ZVR6ft PT8XQfuH6HjwqBk DnkiwJCgOZ87KNc3JPH9 xXjwLMnxrK6rfJTeT7w9 KrSrSA15yO74FTabUBMe HaZ3TlQnapxpkSGi A0klVcRdsYFmBaz+PHRh YmxlIHdpZHRoPScxMDAl SqMpcRvnFK6hEe7cZGDz LWNvbGxhcHNlOiBj q2nbTECbNPogYP3iuNnn J7BnfVH0DDVqs8g3Lt79 dHI+CFHnWOW7tDbgGLbd x389FdZsj1gdCXP4 oFTpCVnmJTF6O52ur0I9 ESJwPKRoYXI6tOV4dO9k xBoreplbV7KjkWTjJeA5 ZCE4rGGzcR5pfOuh aqiytA6dDyr+R73LKZ7I CBCYYD2YWqb7B8VjPjfs dHI+LE99UTKgHP42xGIb gQQyo7jwcBd7WiEh JUYxSYN0zOkoSXocc5Bi QDSmV70wvWJip4J4AMCs gGvjkOHjLpAqhOX1eN3k CHtutnibq7evecec Clgjl8dmoz07hH28V32c DHqcWAUdBVT6RMIoJDEv bUoffi6zuA0nHt3+IDxj k2mdu0ujcJl1CsQp UGVdykLcjHaxCPS1z9It Gx16V4FpqHyci8XsHcn7 cq54oTIsl8M4hEI7KEjp LCUopX6zAZiiUnB6 WZLdImUygF35xSLxGQnc Kh7rsBcnmOvvCM0sPWEf soluLNOnfB7tWVYngDVk aXyrGZ0mWIWornqz c024TeDaZIW8GEWscKUr K5CzcL7gFtNyHZJiNXGg U8MljGChPUpcX558VJil WjN4JMNqawKjW8Ht ATFqwFoaXbN8u2L1Di9Q e6HlvercYAV4BCpzOEPs LjA1YoUtWaR0U8DuAtf6 ZLHhwSvnYS7xG7Vq JQAnsvhawdblpQS2LKWl EAAqfR23jJQnBWnkXs3e k3B8x749WBGbYHEstJ00 Qk6jeXjaEDDbkSJY mD8qunanz4ffgiopCzAn MWVhRFr8FIp9XKSlcXaw XdKtQDN5KzC3LOU5vFPr yY9toZjddsqzhG0x Oyc+U21ghP1yDAP8RSV9 nbflVMYdwwOyPZ99ZS72 Z6UuHpjrhBIhkJD+PGRp bnWdkZrdBO9iQkKz l0luh1UaSSyvA4DfBLXr DLnyQza1GOHzTWP2dAB0 rH8rDZCeSCpcz4M7tIL7 E9DeiaFukc0ob0jn QZMtWZapC21dnGSne2J8 UDXcxTE9ACYufStaUzLa yV97Vew+WFNwlVmkn5Zo Smdly9fye2crrBv0 IjMwJSIgdmFsaWduPSJ0 y2SpLo42P95xXJylZYAi XPLrAEAcPPIqoGfbwf1v tQ6kCx2+PGNvbCB3 pJH3oD3hTJIhIfM1GLxp T199QtPlbBLqZolqb2ld u8qaaJl5NhZpCENfkiBw jDunLDC3p7HeXv58 B04bRZofWPPuWOLwNXEr OKHbtOouad9kkF5vAr6+ EU1jq1ipgo34kZ07zQP+ RSVwWEN6vIdnIVly UBTqpJ3cNFvaAjH7PBTx WbMuhY27qJGoQHzmNx4x iIkbwBptET5pKAFfvfrh c876DyUyc4aqQOVm rYNpVCwxQRP5K10gp6W8 JMStBWIqZUJ8uWE3qB4d bGlnbjogbGVmdDsgdmVy mMaiPJmzVEttU965 IHRvcDsnPlBhdGllbnQg CpZrORr8W5JiGxh7YAQi yPpuDX1fnMZhCQjpLz4r cWimuFexGU6nELSo jlpce972YvRho5kmTCAx pNLlEZloRYL9K36al9W2 AWPlXUOpJTU5rJA4kC7e bGlnbjogbGVmdDsg ngEzmHdkXAjoTHigH917 IHRvcDsnPkJpcnRoIERh vZP3JC11BI70zXUrh0U0 eMZ4K2FyTYBloknm bkxuiNT2EAAuGGAvnW46 Gf5ebOfqOy0zQXZnASD4 HLPqoUUkO9KtfR9pZnZe QTDsGQMgX6VxmTUe SQzlE362NZmpJvE9JXLn ipFsW2XsHKEbeYpbCoM9 a8C1Ig0EC1I2IV14RE85 sBXie0I2pAI6J3So MYMxtqzuwwvoxFM0QCDr UJPnoT61Iv6zwSekSt2s XZVlRMR1TCQyjXDcT5Uu lL0sAgJuBVZwSLZp F4KtnMKsUJptV643QPgc XvN2THBqdmCnU7VvANEy fWzsPuR6h7N7Mz7QUUb6 XT94LD86hKAkz8T6 uBA6M0TzVGNrgwbvxfnw pWF5FLQhWMVfdN95Is3r oZcoIq5fDGUrNEW6XVRm xSNwC8TmlN7xBqAj EOVsXUBmY3RgnSAkOZbp K091ZQykIbL9LIAzdvCl B3MjXAKtdBjwKkC0s0L6 Ud4YHKLzGH22XZP8 aRH3DV65IT73K1TyIino dGFibGU+PHRhYmxlIHdp ZHRoPScxMDAlJyBzdHls KJ7vAy3qERSmFDQd tLlbhFVfYeBls9gyQAMm OUoxRE2aeYlqD8HthVM1 RFAql8a2Fb06F47pU7Oj dXA+CCTodYL4dNY6 zY0wKuGrGjP1AQitH304 TtCtdRMqBiimy3asx8lq qGq4NlV2DHVlelNlsHsb PUL8d8YbGx69N27h IHdpZHRoPSIxNSUiIHZh pQzsdp6hcH6fHq5+PGNv tWS2oQC0fQ5cKgYsReX0 NEgzR502OoSgiJMt Lusmc4wkx6xefAj8HuZb BNKmfpNlcBejXVV1q8Pm Xd90O1XjiJfqn1OqBqy1 cl14lIIsa9J4vFG9 N8XoUMBgnnghoCHuhZqo SX5dDKYnnrnzVSDhtF0l CGBtQ0x1BwVtNmE1TTgg O6TugeM0IUUkfYFs XLgdJBH9E55lg4K6FHEs ZRIvLXQ2mNV2lP8vmJdh bjogbGVmdDsgdmVydGlj PZigYPkdU769SOLx vIwySOSbyZ2zEGJnjRBz gBqvPI9nRNAuwjkkRxdP VVBLRSwgQkFSQkFSQSBF TC65NG87kAMdd8F0 mVQ0T1ErVQJlnhbyzyjd iCK0MBTmCWSxqE18sBQp HCpbYe6ma1W2n469JNQl KATzwK63Yw7viPro ETRgfEFMfE8yffmlb7vk uskeNoPoUVFyMNi5EUm9 DPFghCrePvDlQFE1SoE6 PIL5uSQksJ2jzIvu dqlzpF9eFuc+MDEvMjYv GVa7EzvpiWE+PHRkIHN0 tWmeRTpoDALavS1yZNHc U0u4DlPpNtQ2XCbi K3PlDHOjjgewNj52sG9j YyZdVfC4WHepM3XddaC6 QPTwiTAnUUrhVFS8C27w y3O3BQVmHNQuAHZ2 aXA9jR0swOpgxvjpcTFf dDsgdmVydGljYWwtYWxp P986DTSxuAugAlueYVty AGLmZZ95HK85fPTx b0E6vOE7L4FpOFEmsujo zrdjwLK9RNPiCAOrmL43 iHRaUXosTw9eo4B2y566 UOBuFQUpxZ11Fh6e gGwdAUKmqJVMqP5tzvzg j1ocubleUzHfACKlGJu3 SFb8SFPxfLuiCvMvOLF6 HeX2LLB0lUSnkH2c wYrjbvtbzT5rBiy+RmVt GMboPV00PU35nPVgw0L6 yNU6Z4PlOARozsuqxaqg tTU0RCXfPFDvdZ99 nRLfJCwzOj4vm6D7o803 QWEyLHKznU38Vc4gvNnd YEMcrXTAmK1ylnfla4yu cjogIzAwMDAwMDt0 PMl3COSseCtqUoQzWGO6 UwJ4IXA2cNKxjN2xoWmu ouolkH4yJce+NY7cgnls jkA6RS46VM95I2Rn PjwvdGFibGU+PHRhYmxl IHdpZHRoPScxMDAlJyBz pQtkYL3gLd8iCMOlVRLl eJceiXHoWvAui4ej OTPqDLbtDI8okRgnX1Hz sRN1CKZcp2h8Ex46Y22c N1NnpFM+VMFnpXB1rRF6 yF3cBuDbIbI3GShl W381ZkHmdLKaSqeqt5ai i6ffyWb8FjBuFPXuaiNo gAncGDM6p8FeMg70K11y IHdpZHRoPSIyMCUi ATDhbMdqjo2ijX2jBd2+ LGLabKX7kEE0aU1rQxSn LwA2FWbnP478CrHkmIKj DlrfD51tD0TqpZJ+ GYBpVxw0YCTinCbdXY9o wWFrBTrtUd8fNJV5BoOr MaIfQXcoT0AwSPMwxyox meacbRV4WYWgCFCd vW84Cz8bcPouSn4gUBQx IXB7IDBxqNThV7EffB5t FkJiJHCuFVFuF1QrvJCo NTxjY132ANmxPrE1 RNPcycSmT8ZjSIBfkDyq AmS5r2H4Cg8LiKfemJTg BP5eHfGxYJs6X3RkKjg7 WDDbySwdGB5ocZEf WOklUa1iiHlsaOyfJZ3x GYPdznbyj158LdPpg9iw MFWtzAZcXFbnTED7V87v l6O6XBYkSSFfMJO3 iTT9mE8ykEbwxjtarSAq dDsgdmVydGljYWwtYWxp B672ZALzaFckBzSWIoi4 R1WaNcs0LZNlaAfz VT0wrILqVPiuDp0xlHeo vQquYI3hPEGttxxbe606 BqHfj2tsWVDfkXUtURqj ZHG8K42ue4H9RDVa FIEmIWE6rCX6hL6ikKez bjogbGVmdDsgdmVydGlj EVrgKNfkA394IVGspMnm Jm4ANgt2A7RmEvf5 TLEheLjzGB1mrBQrHJkt Uy2xvNvztAirKX2vPKJh kildl099MxGud6eyAPOv hKDkXQvjYPY6P80o y4S8CBYqMSUgFSN0iTN8 vE0xpQtqdglxnKLfeGwh srTngJboSIetBRfgC118 IHRvcDsnPlBheWVy OjwvdGQ+IL63iy80F3Da ZcmdOwt6GHCdLJZ7lCW8 nH1eUPEwPVxro2J8jUP6 B1CtzrZdas1nn4kj YXBz (more content not included)... Normal [facility] Consent for Treatmenton 11-12 Consent for Treatment [id number] #[id number]:127 Normal [facility] Discharge Instructionson Discharge Instructions [id number] 1#1.00CD:127 [facility] ED Clinical Summaryon 2022 ED Clinical Summary [place] [id number] ED Clinical Summary Person Information Name: DARWIN HEART/[facility] Age: 82 Years : 1940 Sex: Female Language: [place] PCP: JAVIER MARY DO Marital Status: Phone: [phone] Visit Id: Visit Reason: Lower leg pain-swelling; [...] 09:52:34 12/05/2022 09:52:34 ADDRESS: [address] [place] [id number] [facility] NOTES: MEDICAL INFORMATION: Prescriptions Given: Medications to [...] meals). fluticasone nasal (fluticasone 0.05 mg/inh Nasal [place]) 2 Sprays Nasal Inhalation every day. furosemide [...] Prevention; Deep Vein Thrombosis; Simms Cyst; Contusion, Zztz-jw-Stqz; Bleeding Varicose Veins Follow up: With: Address: When: JAVIER MARY [address] [place] [address] Business (1) In 3 days 12/08/2022 DIAGNOSIS: 1:Contusion of left lower leg; 2:Varicose veins of lower limb Normal [facility] ED Patient Education Noteon 12-05-2022 ED Patient [...] veins using minimally invasive surgery (subfascial endoscopic gluer and slicer hand vein surgery). This method may be used in advanced cases. Follow these instructions at home: Medicines ? Take and use bvdj-gkr-rbzncfy and prescription medicines and creams only as [...] ? Ch (more content not included)... Normal [facility] ED Patient Summaryon 023 ED Patient Summary [place] [id number] Patient Discharge Instructions Person Information Name: DARWIN HEART Age: 82 Years Arrival Date: 12/05/2022 09:12:17 Discharge Diagnosis: 1:Contusion of left lower leg; 2:Varicose veins of lower limb Primary Care Physician: JAVIER MARY DO Provider Information Primary Provider: Advanced Planning Intern:None The exam and treatment you received in the Emergency Department were for an urgent problem and are not intended as complete care. It is important that you follow up with a doctor, nurse practitioner, or physician?s executive personal assistant for ongoing care. If your symptoms [...] Follow-up Instructions: With: Address: When: JAVIER MARY [address] [place], [place] [id number] [facility] () In 3 days 12/08/2022 In the event that this physician does not participate in your insurance network, please consult with your insurance company to find a nearby participating provider. Patient Education Materials: Venous Thromboembolism Prevention; Deep Vein Thrombosis; Simms Cyst; Contusion, Ezbs-fy-Drdr; Bleeding Varicose Veins A MESSAGE TO ALL PATIENTS REGARDING OPIOIDS PRESCRIPTION OPIOIDS: WHAT YOU NEED TO KNOW Prescription opioids can be used to help relieve xxrgonua-jl-cidxbr pain and are often prescribed following a [...] care professio (more content not included)... [facility] Coding Summary.on 11-16-2022 Coding Summary. [id number] Gh0bWw+PGhlYWQ+PE1FV EQiY72smIOaeB1WB6cFH W3GSDYDHXUKJY8RFH2wa FI7YWciF6SjfaEj HdkyzXLrCX76POa2HDG9 fTkkBKmwvE1ohOLcU9n1 DbVkHL32vJ84QMyoQPSh HzN4KvLplakerYTn B8grKdDqbOWjKce+PHRh YmxlIHdpZHRoPScxMDAl QbVhhCbfBM0lDt4rADUv LWNvbGxhcHNlOiBj c0hrXQXdMMwnJP3ujLyi T6XgpEY4NUKvq5q2Ia85 dHI+HLNtDHJ1pPdhFEeu t171XqRwq7gpEZB7 qDRyQOkdMFY2C12hd1M3 DOHrSGNoPSX3dKR1eS2u xQvjkvixE4CsrQLqOzN5 ELX0uVEdaF2asWia joxfzI5iJhe+Z80FJZ0T GYSQIV2KFkf8T3FpQtyt dHI+XY36CBJdHO72hPSw wUZkn2vbaDw3HtRy STGlWDF9cMhnKVwdo6Zh UPOnD61lqTEcr1K2VCOp rQjrvKUiJiVryJR1tQ6g ATwluznpf1orsyge Pkzng2sngq37aZ34P87d XGylWNEsWUT2STLrKXHk tZilcg8upG5gQp9+IDxj f0ysf6fgyFy6GxPf FTXzktKxzZmvLAS3s1Mo Gy49K6QhwXumb5OkWbi1 jx08cCRbl7F7uYJ8KFsx MHXqiU8gGKsiVtK3 BCSgUnVqeT75zJFkDMjv Vh6fpVsbpCmfYR8yRNXo dqpwUPCroR1vHWQpuHBx lGkmZA3nXEUowvrp x241BlRtMMR6SWBmtILb X4FigB8wYzPdQPYaMNPi P5CokPOkJUdyW072CLmj KbA4NWGbycHbX1My RRVrkVaqXfX2o6A1Yo7H t7KovtdxXCC0YYvwQMQz KiA3MqFpIuU2D2DcJso5 SDUceZusFK1uJ3Ui JRKayqguolvbtUP7OWGt QEXvjA42mCYoBCvbLe0c c1G7v611NDVpNIQiaL93 Ct6sqZjjGZVxqXQS yW8nbhnua6lhjnxoDzIx MYIiIYd8BQa4MCAmmVea LwCwIAH5AdM0QCH7oPPp hN6emWnorzzycX6x Oyc+B29asQ7tTXO7FHH9 yvljOQHcllUuWN12KS98 S6QdRoygpHFgfDS+PGRp nkDpqOwuZB8fCdBk b4byj4UkVMvrM3IoBZFy AWxaEfn8JFSwWPQ8nAE5 uH4aZGRuRZrkt8Y9cKH7 E7UojsCksv4ko2ue BJJfFTylG90ylWCqt7Y9 FCSihIV1IJLmrWjeTtQn jS23Tcu+ENMtoSidi2Py Lqhbh7kcl4yixHm2 IjMwJSIgdmFsaWduPSJ0 e3BpNm08Q84mWUorSWUd FLHdQGEmXFJkcZdtdr1p cO0oUd0+PGNvbCB3 uRW2wH5sEIZiIcU2HZyb V169LyIcnWNgUhqsu7bd c9blsIb5JuPhVVJlvwDa aHunSOP7a9KxDf81 H55tVAoaVZYyZVGyUKDf POYtnNjrbg5qhB7aVw5+ YD2hj7ajpr35gI33sFP+ IMTaFSO3zEorMNii UIIqiF5cMMqfXaR0XJZa LnWfjH77iIAsKGudBu0k mZzzxXtzOT7uPTSalmab y735HcYxy3qrDQRz vZRyNOisFEX7F72wr4C2 ALNxHYQrGWC0jSH1bY4l bGlnbjogbGVmdDsgdmVy mJmiVLahCRceB784 IHRvcDsnPlBhdGllbnQg QoPuIIf4V3AfZjv9SKEz fYuvWJ1sdIFjACeiBa6p vAviaVrfCJ1bSGEa jhgft672JmJyq8maOOJt cKTzQVboMUQ1E18bc9Y3 BAZpCGCdAXZ3bGZ6vV1r bGlnbjogbGVmdDsg goHyrFmiSPasFFcqR735 IHRvcDsnPkJpcnRoIERh rKY9CU01VC29eNHtc6L1 kEI6P2DjXINgkzhc ndlubSV7AMElFCUrmF14 Rd0qrQgvBn1vHCEaHHC6 KIQvsVSaB8NryK5pFhIw ZMIsPDIdD1MoaNBt BMfvE303ZFhnUsM0JXQe pbWmN7HoJUHsxQnuAhS1 e4U4Ov6PZ7I7YK28KK49 oKIsp4U7cOT8G0Jj RTXolqzwhcdhvSP8OCDy KIDsrK06Qh3jdUulKv2n ZSNpTON8RJGsaWItG5Ii mQ0eVyYdNXBqWQGk X2OlmGLhBAtcX035ZUwt MgJ2VHBwctQxA9AoHKXm lMxhSfH1e8Q8Cs7ASNr2 AO95LB37fNFul6D0 iZH1Q9LnRYHrhemieqnh oBI4QJLvTBAchI53Vw1x lYlaBq6aESOeQJK6BLJe jEJwW8TekQ7jAoSk BQMvOZDwQ1VpwXPfCDxz T680WBmjWsH2EZSixgQk O3LzTEJagWdxNzT2p2O3 Nn8EXRHkLI22JEZ5 gVB8NC57AT10L6NkPqcq dGFibGU+PHRhYmxlIHdp ZHRoPScxMDAlJyBzdHls MO0cJe5bRMEnPGWo hGvpeJMtAkQmt4lcGATe LYicDN0xcCzpS1DaiFU0 SJQbv3r5Pk80D91uD3Qr dXA+QBXgaGY6pPE6 gF7bIfUmEoR1VKznQ601 NqIqeVQhNmeuf6iez3nm aAh8XqZ9GSCkxxPxjMfw BEO5y4YaWc39P29t IHdpZHRoPSIxNSUiIHZh iXonwx7hkX6lBm9+PGNv xIE4bDS3dN3aZpZhEoX7 BTxbQ139RtNslLPm Gjerj2pve3ubiEq3AuMq KSVkonPtbXyyTTZ9n1Zh Au37G4NciQmhh7WfJkb0 zb24aZMsx7H8aDG1 A9JsEPQjkbpbaBNshTxk BC7zXDEtjbgrEJSwcU2x OFRfF8y9TzNsCxS7TOus W1AknfM5OEAaxYIr KNorYCG3J14nl4F0TDKa YNJmHWH2xZF0bB9hqJzc bjogbGVmdDsgdmVydGlj QRqmWQfnB955CXQg eSesTBDvzV8oRAFehVWh vMqeJX6cHEWkuqcrQroO VVBLRSwgQkFSQkFSQSBF UU87RF99bWDed2T7 cYH0O8LcVJEbamqpheoc pQL3ASUqJDKtxE72kCGk UHybAo2bd1K5r069GLWj GMCacV18Dk9wzCfh LNXfnICXrH7pyvexr6ay izwgEhHfRHFgWGr1GBq4 SHWzoGzoAaObXSJ6EoR1 IOA9wTNleR5zjSjj oxptmF0hGff+MDEvMjYv IZa7PcmtvIT+PHRkIHN0 vXpxSIhjIAUtaI9jECQg G7r5NnMhZhI8HJjz S9RyKJMqxitcUw69zC0e RtFaIfB8UKleD6RrinC9 MLRhfSToMQxgXDH4U84c e7N2RPTjREBtPZP9 sST4bD4viWfpuadjgTVd dDsgdmVydGljYWwtYWxp L863KLTfuAjzKqmmYQbb VVFjOX78QQ67wRNu b0Q8xLU5T8GvJZHoququ pkxxaDH9FXVzOOYtmC16 uXKkXUqcEw1rx4B2m439 DIAbFHWfkZ16Jn1j lNejNBNbbHVXyP6lsogp z1bcnekwAhDgCQHpBAs4 ZMb4ABMzeHvrDcIzIEP2 FwL5PRZ2bVDisI7r fJtggjtcxB2xRmu+RmVt IRgqRU97AR61lIOxs9F4 mOJ9N4JwWCJexgemopat bQC1XJFrRMZszK20 mRTqCDpjMj9jd8L6h643 FOUkONSjoT60Vf2rsXdb FGGicZKBxR9ofyfif8zc cjogIzAwMDAwMDt0 HBz5KHLvpMrdZqVkLBT4 PfI1HFI6zNMnoD8dyAdb ezvrcU6xCjg+ZL8cpdqt pzX9PT65IM21V3To PjwvdGFibGU+PHRhYmxl IHdpZHRoPScxMDAlJyBz uMlaWT6fIa7bYYUaRJOo uMevlQWmSmGcn4xd CYKqTXezAL3yyKusC5Bx tFF0FIHwt1g9Rl18W26u T9CdyTL+PEEshEQ8iHM8 kT8fDcBcSnJ2DQhv T183XgKlvLGfNpjvn0mb v8rliIu4YgXuIAQfgmOg hAulRUF2d8FtDp91W46a IHdpZHRoPSIyMCUi CVGwqYpsrf9wpY6hDh2+ KUCbqAM7dFW8iA4bMtLu QkD3QEbeY628JtAwcKQf ByysR71tA1TwmJI+ XLUxJwc6ABCcmKxaSJ8l jSFiYWifSd6oWRK1YoBq RnTiFDvlI5XsLNGuyyxb dmzanCH2YFZlAQYt fC77Xe6lcMbpQs8cLVKj OOJ1ANOytBDcK6RkdR6v GbAlGRViNYMtN9QhvASf MAzhC848KSqyTeL2 IYRqywCoK0CnWSXyqNtt ZzB1x0P2Ft4HwXirqCHe YM6cEvIsMQo1T0NiDts8 NMEygAgzYH7hgDDw LPkwPp9qoQnumZeqEU5a UANmcvkbn578OyPbn2sd WIWnpJIyTBsrUIX1Z84z h1A5YVHvRFKjRTF0 pNH9hE1fwFjdnudimXIw dDsgdmVydGljYWwtYWxp B611LYJvvNfpQdXWDna6 L1HtLku9SMIfwMcf PA5kzILaDFszAk0msBxa zJgjUZ2cTXIbmzrqb319 TeFnk1pnFBWxpJJeRVdx ZWI3F81ln3N0VZHr AWLwYZC3eDZ3cM3zwDtc bjogbGVmdDsgdmVydGlj ILghFInwF110YHVuuGmu Ub8JVzp3K1NmHkp9 ZBZzwFicAF8kyUUpBPhh Dv2pyWlojQukHR1jXSVq ajgei317NqSlv9jrIBMx cPLnQCubFUX2P88i h0E6RBFuVRZpXCE9rQK1 hG2doVmkftwzjFSxsKbx azIihInnNPndIPuaK587 IHRvcDsnPlBheWVy OjwvdGQ+VD32fh30F7Jg DqxwTgg7GOUzXHC8fEQ7 cL4kYHEpAHrff0H0cSY9 H6XqbeHvhr9tw9cn YXBz (more content not included)... Normal [facility] Consent for Treatmenton Consent for Treatment [id number] #1.00CD:127 Normal [facility] Discharge Instructionson Discharge Instructions [id number] #1.00CD:127 Normal [facility] ED Clinical Summaryon 2022 ED Clinical Summary [place] [id number] ED Clinical Summary Person Information Name: DARWIN HEART Alondra/[facility] Age: 82 Years : 1940 Sex: Female Language: [place] PCP: JAVIER MARY DO Marital Status: Phone: [phone] Visit Id: Visit Reason: Hand pain-swelling; RIGHT [...] 11/12/2022 13:16:10 11/12/2022 13:16:10 [address] [address] [place] [facility] [place] [id number] PHYS DOC NOTES: MEDICAL INFORMATION: Prescriptions Given: Medications to Continue Taking That Have Changed [facility], [address] [place], [place] [id number], [phone] START: cephalexin (Keflex 500 mg Cap) 1 [...] meals). fluticasone nasal (fluticasone 0.05 mg/inh Nasal [place]) 2 Sprays Nasal Inhalation every day. furosemide [...] Follow up: With: Address: When: JAVIER DRAPERGLES [address] [place], [place] [id number] Business (1) In 3 days 11/15/2022 DIAGNOSIS: Cellulitis; Wrist pain Normal [facility] ED Note-Physicianon 11-12-19 ED Note-Physician Basic Information [...] days, # 30 cap(s), Refills(s) 0, Pharmacy: [facility], 165, cm, 11/12/22 11:52:00 EST, Height/Length [...] 3 days 11/15/2022 EST [address], [facility] [address] [place] [address]- [facility] (1) Additional Instructions: Patient Education Cellulitis, Adult Attestation Patient seen and evaluated by the physician executive personal assistant. Attending physician was present in the emergency department and supervised care. This visit was performed by both the physician and an APC. I performed all aspects of the MDM as documented. This report was transcribed using voice recognition software. Every effort was made to ensure accuracy, however, inadvertently computerized optical instrument assembly supervisor mistakes may be present. Appropriate healthcare PPE [...] mg/inh N (more content not included)... Normal [facility] Comment on above: Result Comment: Elec [...] these instructions at home: Medicines ? Take ooor-duq-eyjwikk and prescription medicines only as told by [...] as antibiotic medicines or antihistamines. ? Take fwuz-bjz-bjzgzdl and prescription medicines only as told by [...] Reviewed: 02/16/2019 Elsevier Patient Education ? 2019 [employer]. Normal [facility] ED Patient Summaryon 023 ED Patient Summary [address] [address] Patient Discharge Instructions Person Information Name: DARWIN HEART Age: 82 Years Arrival Date: 11/12/2022 11:39:42 Discharge Diagnosis: Cellulitis; Wrist pain Primary Care Physician: JAVIER MARY DO Provider Information Primary Provider: Sanjeev Johnston DO Advanced Planning Intern:Clyde Alas PA-C The exam and treatment you received in the Emergency Department were for an urgent problem and are not intended as complete care. It is important that you follow up with a doctor, nurse practitioner, or physician?s executive personal assistant for ongoing care. If your symptoms [...] Follow-up Instructions: With: Address: When: JAVIER MARY [address] [place], [place] [id number] Business (1) In 3 days 11/15/2022 In the event that this physician does not participate in your insurance network, please consult with your insurance company to find a nearby participating provider. Patient Education Materials: Cellulitis, Adult A MESSAGE TO ALL PATIENTS REGARDING OPIOIDS PRESCRIPTION OPIOIDS: WHAT YOU NEED TO KNOW Prescription opioids can be used to help relieve pijxpayv-zj-qsizgc pain and are often prescribed following a [...] be struggling with addiction, tell your health director of health care marketing and ask for guidance or call [facility] Event [employer] at [phone]-[phone] [employer] Source: [place] (more content not included)... Normal [facility] XR Wrist 3+ Views Righton XR Wrist [...] MD, V. Transcribed by: JOLEEN Technologist: MOHAN [facility] Office Visit (Cardiology)on 10-20-2022 Follow-up visit Diagnoses/Problems [...] NEEDED. amLODIP (more content not included)... Normal [facility] Tobacco Screening.on 023 Adult depression screening assessment No [facility] 600 DO Work Phone: Fall risk assessment a) No falls within the last year [facility] DO Work Phone: Tobacco use status CP b) No [facility] 600 DO Work Phone: Coding Summary.on 10-01-2022 Coding Summary. [id number] Gh0bWw+PGhlYWQ+PE1FV VMlC87erNDfpO2YM2zHP N1VVWSDLRVBCX6KLD1on ED1ZGufL8MzkqUk LimvjDSiIC79BEz7TEE5 kNsjDVbrpF2plNRcN4r8 TxOkIN39aJ96VDvpAAPp IeL7ZrQenbucsCXf C8yoHvHtuOYfPrq+PHRh YmxlIHdpZHRoPScxMDAl HsPhnEpwEP0xFs6tECIh LWNvbGxhcHNlOiBj e9imWPIwDSedWX2oiXnd P5MzfVE5SORgo7a3Bj42 dHI+VVEcMYN1hDzrGZpi h149MoMqx4zoURH6 vOXxILxwUMA5M44iv9M9 YYHmRANuJZK5fIB2iW5z cIsnpxcvU0KgzPTuGwD4 ZXK3qYStfH3amYmw osfxrN5tVqc+A46DGJ2N YKDKXS0LPwv0N3PwVkiq dHI+UG74TRUeYQ13rUNk fQSnu1bezPm5WcXz VBWpYKB6nCgzMIfut3Hu AJPfS42lnKBze8M0MXVx rTvogKJpUmRscHC7cR0b SMqnwfgnb6wzpofq Wtamx4dzfy92qC27V85d OYmdVKTuMFS5ENGrQTNk aOdsnd7mmA4hQm9+IDxj j0ajn0zgjXt9KrEd LAFtazRtbVqiALP3z7Bu Yc33P5ExrSqoh3FiQxd9 ab96aBBsy3A2gEN5USfw WUTqdI7hQWfkXxL5 CPHwXuAumF01rZAuCEwv Et4agYlzpMgoQR7mOEHw bigaACBrcP5xDFHehNWc eNosGV2bRGLldkjx u308JdSgORW3GXDjqEJl T7SumS9bWpCdTKHxXFOx G7EvzLUdXFgjU448CCrr ShO7FDUwgeVsF5Ba RZGzkWucKmW6o6E5Ok4X m0XqmflaYEL7SZmkGYEw SlKvLbSuMqE1S4EnWih0 NXQquAxiTT6zP3Py MAZqmmrgyqffgSS5REXe GWFvlU98rARqDZeoXj7q p2V2m417WIJnLPOnhT40 Uo9aiNsiDJTckUPS uG2ktbkci3jrtpsiBfLn BRYuCMc7AYt9RQWgsNtx XvGeVJT7YeK6ZTV2lPXw gO6axPtynforgH0z Oyc+A03hmI3lEDA5QBE3 dscqOQLmhmVsBV91GB78 K9XpXidamJHewNZ+PGRp zkDejEpzQY8nOeBx p5pxv7GrPBmsD0AiEDBu ILvmPrj7ULMeTXE0iPB4 aQ8fTVJuACark5B4rHJ9 Z3RbtmYmin3uc3qq QHWeMBlvI42gdBJpm9A1 ZTHvhZO9WURcrGvfDgNt eE02Fgl+GNGarFitu3Cx Vvdgi9ddj5khkZf5 IjMwJSIgdmFsaWduPSJ0 i0BdMo12G22aEQcuNJBz DQYyELJcGORwfVucsn0r iQ3oIe3+PGNvbCB3 hAB4uV7lDGZvMkZ9ZRqi H397AdTzfGMuVpoae3zs o2vewHl6VgJrQGGmwbTz gOymJUV6y2WuAy41 Z72uJFpoFMTqSQPgTVMg YMIehHuhfq9xtH5lOg4+ VN1ii2fing12cO82pLR+ FVPbRZG2wYazVGvs QXFobF8mKKvoBzR3TOZi CaLqdV91cLOrKFwaJl6d uPyvcTbeTT8nQZTftfqc q589OaEuv0jaCWCt pWOqSLzhRNB0D04fx1Y5 LUBaQTIcMTH0oUG1dE5z bGlnbjogbGVmdDsgdmVy xGgvGUwiBIigT383 IHRvcDsnPlBhdGllbnQg BzKfGUo7X2WaGny1QGAf pExwKU1fnSVdWKqbMr9g mGaxjYqhDQ6dDVQn hqziz396IpPkp5woSLXq mIWlCRqkHVE7I40as6X2 ADVzKRToBUS7jRC8jT5g bGlnbjogbGVmdDsg ufMfoHhnARmwYVaxT749 IHRvcDsnPkJpcnRoIERh oFN3RH17KZ70uJYpt7T6 uQV4U7InNIQfvcpm zrgfaMO2DSRlZKZjkT42 Sy4osZqtSf1sSOGhQEE2 GHVwwQWwM0ExrY4gQmDs XSQfNLIhB7EldYKq JTejZ164OGppVbC6EDPr hxDjR8ZtTMJfcFnbHlW9 i6A0Bp7ZK4O9BX61EV17 eRDpz3A6bFH0R9Os ENZrasfskgvcsOE7ZOSz TXOfnP17Rb9akGqkRz2o SWXgTAM5KTHqdWKyI9Qi pH5iXtUkZNUjCBKr O4AscUMxGTdyT671LQfd FbB4ILTapdTuB4TqUKIu vXhrDxZ8q2O4Cf2DWSj0 XO77ZJ36uBRrp7S1 yGS5T0VyBXHtcgpleyqk iVF6CWPcJZMkaJ00Um7x eCshYk7jIBOkXTV8FAIa gPVkC8OenF6fCoRy HJXtCJTqW7LcoLVeEMge K757LQrsItJ8HWHrmlTw Z5FnTHCsoUgiEtW6w2A4 Wp8PYCEkPB25ILV4 nFS9UX04XI70R4YxPtvh dGFibGU+PHRhYmxlIHdp ZHRoPScxMDAlJyBzdHls YE0fEf9xEFXvSKWu qSkwuOHhNvIhk0jyDEOi VBvkXY8ptKtcP0IqzCM2 DHLyu9v9Fc93W52tE8Aq dXA+MOShuKW4hGR9 eJ4zFvElSlK7PLbdV530 PuHrsVBrYzrkm8vpe8yk xNv5QkH1GEAveeHzkVwd YFW5m8MxNl71N69o IHdpZHRoPSIxNSUiIHZh lPdapq1qqH7bIn4+PGNv rBB2eTD9zC6qUmUtIpC6 QElqC944BcPwnHSf Bxxqn2rrh7yjrPp8VxRz SQOzqoQfdXilRXU9e1Ye So90O0DddJqit4LrXbx7 xl18wNQmj3R3mJO8 A0CtMDExtmsmgJFpxNwx WO0nDSSdlsotKAXibB6c KFUaX3d5KbGtXvG0NUpu V6WpgfW7ZELgeFNg QDezRNH4Q28qf3Q1BVBt ZBTbHPL5uRH3vP2nsPni bjogbGVmdDsgdmVydGlj UHfqBCbqB613HEJs uCqsCEFbdC4dEYOdmVTa zWjaPQ0gMJHicdnxLieW VVBLRSwgQkFSQkFSQSBF LE73RG06bZKuo0S7 fZQ7R1PbPBXegcczarmv dUH6HTBzNGCgqQ81kMNk HAvxYo9mb4P5o304QPHy BMRilX85Gj3jyVkh UPJhzDYZrW3jdtpsv9wo wrfxMcKvIQKaPIf1JQi8 MRDkrNxiKqVlRTS2WvN0 DAJ1kYDhxY0cePng elxfeE8zAao+MDEvMjYv NXb2QkpbzZO+PHRkIHN0 iMguXFumEKItnW5eFRIt C6x1XpFwRvZ7RUrp G4IkGZWyqoivKv30sW6z CxGiDtW0JDuuX9QsolJ6 ZMKemPZcEWxaLTP6V17x b1Q6YKChRJZbIXL6 qTV0bT5foYjponzdiSSr dDsgdmVydGljYWwtYWxp F205JHUycTwiVyy0TKxr MANoEA93DB28gQYu d7C5mIU0T1ZnWMFjvrbp tjycaJX9WQIbFZVruE77 bOFbMXbrYy0wy6J7v742 CPKhGCSbwP36Wf9t oJefKGSbgZDUrL6oycvu u8ojzdwmHcRqVOYnKOp0 FEy5UHFxzFpzQeHdKGH2 KdV6TND8yJOptO2t oNbfjgudoH2uQpf+RmVt BEjoCU68KK83lHRlg8S3 eLJ1Z3SwOQFeokzyhhif eDW0YVAdXDMgyA21 kHCuVPzpZs3fj5V5c391 CWPaJPSedO55Lg1inHpr USZnbWLFlU5ixvkal3re cjogIzAwMDAwMDt0 TAa9KJQtoKteJgIlWFL7 OpP8EGF6fCJirT4ahCau golxuX9pZlf+W3Y0nDN2 aWVudDwvdGQ+PC90 og76Y5PfKwdwIno0XAJc SAB2pMX2aV1uVENiVCnv k4Z5kMS3K5GrqsKwvx3b m6dkEXNvTYjrY04o zHNhl7A8TMXioWD8MWRo qDtlMoZemK97Bpd+PGNv rVxcx7TaEompm5vsc1zq wFu4FsAhVWGxweTd qLxhJXX9p7UkTv10N84b IHdpZHRoPSIzMCUiIHZh sZicyv6luM6xJl7+PGNv rVE8oOS6iW3aQcLa LkR1QIgeL411IiTbeIIx Ewlrg3pdo2yieZw0ArKk CGLagwVhvNfpTML6u6Vs Vg95V2BmuBhcc0Ze Bbq1qv45cVJak9I3sSH7 M0SkWXCfnkvhhLIgmTtq FA5hWEOrejjzFDAcdD5m RXUeD9w2HjQrFoU1 PEmtK6SestV2DXYnnMCv UHOkbJUBhU3gvyigi5ah tjzgNaKaITHbTGu8GWz1 LWFsaWduOiBsZWZ0 GqS1NRX0oQOfzA7kyPwt rpsqfS1nCul+WPc7g3yv oCGpFC9dwKR5LI35UM21 eUHsb7X0lEV5Z9Sh IUZtsurwldgytFF2HTOp QLLksD43Oy3vaKfkPs1w AVMfBZH6ZSFrxWZgE9Ff oX8lYiBfKQWwVHAe A0RokTBlAMxgY727NCqh FiU6MPJpjkFyE3EtVYSt fKieIrG9f9X9Hd3UOC50 GP14AW97dPQfb8P0 kBJ8L4LsRUXsqxfkdmzu jAD1OWWaIKNsqY12Pk8l yRokCe8oEBUnNBB3FAHy rJTvE1JqmE6nJrEz CVFsKWDeG0HcoOKgJEhx P807RWdcPiC5KKMzwjCh F2ZzTYGdcHexJaC9a6E0 Wc5XEz27SQ74QP03 hSFwg2G0zNS3K5JhQHXc okbuvsgucKY8BHUmFHXj iK75Si2lkMhjRf0cPZYi COS9ZXQnhNXjT3Hj mY2eEjCsQAMfSZTyH5Vk zRIvTRmeP300ZMutTqT5 FHBwjgUaB7HnEZAkvXce YwT7f5O7Vs1BOMtt qzq5Y0DfYjrjqAR+PC90 CJWbQR77tAVffHNch3sc vBs0QzOaZXLyPDI4kXvt HKkrt2StIBBuQ23h bGFw (more content not included)... Normal [facility] John 09-28-2022 ALT No additional P-5'-P [Catalytic activity/Vol] 17 Int._Unit/L Normal 6-46 [facility] Comment on above: Performed By: #### 1 [id number], [id number], 4379967, 8782879 #### [facility] [address] [place] [address] Ryder 09-28-2022 AST [Catalytic activity/Vol] 18 Int._Unit/L Normal 5-43 [facility] Comment on above: Performed By: #### 1 [id number], 7805724, 7310503, 5476305 #### [facility] [address] [place] [address] BMPon 09-28-2022 Anion gap [Moles/Vol] 12 mmol/L Normal 6-16 [facility] Comment on above: Performed By: #### 1 [id number], 7130450, 9014627, 9607476 #### [facility] [address] [place] [address] Calcium [Mass/Vol] 10.0 mg/dL Normal 8.9-11.1 [facility] Comment on above: Performed By: #### 1 [id number], 3226354, 7867908, 3854372 #### [facility] [address] [place] [address] Chloride [Moles/Vol] 102 mmol/L Normal 101-111 [facility] Comment on above: Performed By: #### 1 3926331, 9357336, 6509014, 8561191 #### [facility] [address] [place] [address] CO2 [Moles/Vol] 30 mmol/L Normal 21-31 [facility] Comment on above: Performed By: #### 1 8910544, 4113600, 1421041, 4844217 #### [facility] [address] [place] [address] Creatinine [Mass/Vol] 1.0 mg/dL Normal 0.5-1.3 [facility] Comment on above: Performed By: #### 1 3549872, 2060970, 7705744, 7460864 #### [facility] [address] [place] [address] Glucose [Mass/Vol] 114 mg/dL Normal 55-199 [facility] Comment on above: Result Comment: If t his glucose result represents a fasting glucose, interpretation should refer to the following reference range: 55-99 mg/dL Performed By: #### 1 [id number], 8614832, 3975851, 8523706 #### [facility] [address] [place] [address] Potassium [Moles/Vol] 4.3 mmol/L Normal 3.5-5.3 [facility] Comment on above: Performed By: #### 1 1863674, 5683961, 9480167, 3461095 #### [facility] [address] [place] [address] Sodium [Moles/Vol] 140 mmol/L Normal 135-145 [facility] Comment on above: Performed By: #### 1 4243495, 6895618, 1387733, 9028542 #### [facility] [address] [place] [address] Urea nitrogen [Mass/Vol] 29 mg/dL High 5-21 [facility] Comment on above: Performed By: #### 1 7811885, 3521604, 6947732, 8488787 #### [facility] [address] [place] [address] Urea nitrogen/Creatinine [Mass ratio] 29 No Units High 10-20 [facility] Comment on above: Performed By: #### 1 2335938, 2492269, 1433344, 5130264 #### [facility] [address] [place] [address] CBC w/Indiceson 09-28-2022 Erythrocyte distribution width (RBC) [Ratio] 14.0 % Normal 10.9-14.2 [facility] Comment on above: Performed By: #### 1 3875488, 8396472, 9807913, 1681216 #### [facility] [address] [place] [address] Hematocrit (Bld) [Volume fraction] 39.9 % Normal 34.0-46.0 [facility] Comment on above: Performed By: #### 1 [id number], 8055973, 7888815, 5537857 #### [facility] [address] [place] [address] Hemoglobin (Bld) [Mass/Vol] 13.1 g/dL Normal 12.0-16.0 [facility] Comment on above: Performed By: #### 1 3770217, 0910707, 6020934, 9103640 #### [facility] [address] [place] [address] MCH (RBC) [Entitic mass] 29.6 pg Normal 27.0-34.0 [facility] Comment on above: Performed By: #### 1 9452032, 7207956, 9540106, 9485267 #### [facility] [address] [place] [address] MCHC (RBC) [Mass/Vol] 32.9 g/dL Normal 31.4-36.0 [facility] Comment on above: Performed By: #### 1 9471028, 0450035, 9713129, 7861283 #### [facility] [address] [place] [address] MCV (RBC) [Entitic vol] 90.0 fL Normal 80.0-100.0 [facility] Comment on above: Performed By: #### 1 8753576, 3608448, 1805788, 7967018 #### [facility] [address] [place] [address] Platelet mean volume (Bld) [Entitic vol] 7.7 fL Normal 6.4-10.8 [facility] Comment on above: Performed By: #### 1 6717267, 9527076, 6267272, 3117508 #### [facility] [address] [place] [address] Platelets (Bld) [#/Vol] 187.0 E9/L Normal 150.0-500.0 [facility] Comment on above: Performed By: #### 1 5596429, 0138732, 0914145, 0995190 #### [facility] [address] [place] [address] RBC (Bld) [#/Vol] 4.4 E12/L Normal 4.3-5.9 [facility] Comment on above: Performed By: #### 1 5996039, 1223992, 3992743, 5889855 #### [facility] [address] [place] [address] WBC corrected for nucl RBC Auto (Bld) [#/Vol] 7.2 E9/L Normal 4.0-11.0 [facility] Comment on above: Performed By: #### 1 7940264, 9526062, 0344038, 9772518 #### [facility] [address] [place] [address] CHEMISTRYOrdered By: SYSTEM SYSTEM on 09-28-2022 ALT [...] rate/Area] mL/min/1.73 m2 Normal >=59mL/min/1 .73 m2 [facility] Chem S GFR/1.73 sq M.predicted among non-blacks MDRD (S/P/Bld) [Vol rate/Area] 53 mL/min/1.73 m2 Low >=59mL/min/1 .73 m2 [facility] Chem S Glucose [Mass/Vol] 114 mg/dL Normal [...] Treatmenton 09-10 Consent for Treatment [id number] #1.00CD:127 Normal [facility] HEMATOLOGYOrdered By: Noelle Daly on 09-28-2022 Hemoglobin [...] 7.2 E9/L Normal 4.0 - 11.0 E9/L [facility] HemeAutoSS Laboratory - Chemistry and C hemistry - challengeon 09-28-2022 Cholesterol [Mass/Vol] 92 mg/dL Normal <=129 [facility] 600 DO Work Phone: Cholesterol in LDL [Mass/Vol] 9 mg/dL Normal 7-40 [facility] 600 DO Work Phone: Laboratory - Chemistry and C hemistry - challengeOrdered By: SYSTEM SYSTEM on 09-28-2022 CO2 [Moles/Vol] 30 mmol/L Normal 21-31 [facility] Marino mack Laboratory - Hematology and Cell countsOrdered By: Noelle Daly on 09-28-2022 Erythrocyte distribution width (RBC) [Ratio] 14.0 % Normal 10.9-14.2 [facility] HemeAutoSS Hematocrit (Bld) [Volume fraction] 39.9 % Normal 34.0-46.0 [facility] S Platelet mean volume (Bld) [Entitic vol] 7.7 fL Normal 6.4-10.8 [facility] HemeAut oSS Lipid Panelon 09-28-2022 Cholesterol [Mass/Vol] 197 mg/dL Normal 120-200 [facility] Comment on above: Performed By: #### 1 [id number], 9959554, 3734545, 7551535 #### [facility] [address] [place] [address] Cholesterol in HDL [Mass/Vol] 91 mg/dL Invalid Interpretation Code [facility] Comment on above: Result Comment: HDL > or equal to 60 mg/dL: Low cardiovascular risk HDL < 40 mg/dL : High cardiovascular risk Performed By: #### 1 [id number], 2379602, 4297017, 5940753 #### [facility] [address] [place] [address] Cholesterol in LDL [Mass/Vol] 92 mg/dL Normal <=129 [facility] Comment on above: Performed By: #### 1 3820543, 2037741, 1637365, 4968925 #### [facility] [address] [place] [address] Cholesterol in VLDL [Mass/Vol] 9 mg/dL Normal 7-40 [facility] Comment on above: Performed By: #### 1 8752853, 8995939, 5232246, 4019888 #### [facility] [address] [place] [address] Triglyceride [Mass/Vol] 47 mg/dL Normal <=149 [facility] Comment on above: Performed By: #### 1 5299794, 8572042, 3691317, 3998152 #### [facility] [address] [place] [address] No Panel Informationon 09-28 187.0 {E9/L} Normal 150.0-500.0 [facility] 600 DO Work Phone: 90.0 fL Normal 80.0-100.0 [facility] 600 DO Work Phone: 32.9 {gm/dL} Normal 31.4-36.0 [facility] 600 DO Work Phone: 29.6 pg Normal 27.0-34.0 [facility] 600 DO Work Phone: 13.1 {gm/dL} Normal 12.0-16.0 [facility] 600 DO Work Phone: 4.4 {E12/L} Normal 4.3-5.9 [facility] 600 DO Work Phone: 7.2 {E9/L} Normal 4.0-11.0 [facility] 600 DO Work Phone: 12 {mEq/L} Normal 6-16 [facility] 600 DO Work Phone: 102 mmol/L Normal 101-111 [facility] 600 DO Work Phone: 4.3 mmol/L Normal 3.5-5.3 [facility] DO Work Phone: 140 mmol/L Normal 135-145 [facility] 600 DO Work Phone: 10.0 mg/dL Normal 8.9-11.1 [facility] 600 DO Work Phone: 29 {No_Units} above high threshold 10-20 [facility] 600 DO Work Phone: 1.0 mg/dL Normal 0.5-1.3 [facility] 600 DO Work Phone: 29 mg/dL above high threshold 5-21 [facility] 600 DO Work Phone: 114 mg/dL Normal 55-199 [facility] 600 DO Work Phone: Comment on above: If this glucose resu lt represents a fasting glucose, interpretation should refer to the following reference range: 55-99 mg/dL >60 Normal >=59 [facility] 600 DO Work Phone: Comment on above: eGFR is race adjuste d. AA=. 53 {mL/min/1.73_m2} below low threshold >=59 [facility] 600 DO Work Phone: Comment on above: Chronic kidney disea se could be indicated at eGFR's of less than 60 mL/min/1.73m2. Kidney failure is indicated at less than 15 mL/min/1.73m2. 17 {Int._Unit/L} Normal 6-46 [facility] 600 DO Work Phone: 18 {Int._Unit/L} Normal 5-43 [facility] 600 DO Work Phone: 47 mg/dL Normal <=149 [place] [address] DO Work Phone: 91 mg/dL [facility] 600 DO Work Phone: Comment on above: HDL > or equal to 60 mg/dL: Low cardiovascular riskHDL < 40 mg/dL : High cardiovascular risk 197 mg/dL Normal 120-200 [facility] 600 DO Work Phone: Physician Orderon 09-28-2022 Physician Order [id number] #1.00CD:127 Normal [facility] eGFRon 09-28-2022 GFR/1.73 sq M.predicted among blacks MDRD (S/P/Bld) [Vol rate/Area] mL/min/{1.73_m2} Normal >=59 [facility] Comment on above: Order Comment: Order Added by Discern Expert. Result Comment: eGFR is race adjusted. AA=. Performed By: #### 1 [id number], 4288101, 8770597, 7382503 #### [facility] [address] [place] [address] GFR/1.73 sq M.predicted among non-blacks MDRD (S/P/Bld) [Vol rate/Area] 53 mL/min/1.73 m2 Low >=59 [facility] Comment on above: Order Comment: Order Added by Discern Expert. Result Comment: Real Estate Administrator karl kidney disease could be indicated at eGFR's of less than 60 mL/min/1.73m2. Kidney failure is indicated at less than 15 mL/min/1.73m2. Performed By: #### 1 [id number], 5651533, 1930473, 0309310 #### [facility] [address] [place] [address] Tobacco Screening.on Adult depression screening assessment No [facility] 600 DO Work Phone: Fall risk assessment a) No falls within the last year [facility] 600 DO Work Phone: Tobacco use status CPHS b) No [facility] 600 DO Work Phone: A1C HEMOGLOBINon 03-16-2022 HbA1c (Bld) [Mass fraction] 5.2 % [employer] Other HbA1c (Bld) [Mass fraction]o n 03-16-2022 A1C HEMOGLOBIN [place] [employer] Other Tobacco Screening.on Fall risk assessment a) No falls within the last year [facility] 600 DO Work Phone: Tobacco use status CPHS b) No [facility] 600 DO Work Phone: No Panel Informationon 10-29 25.0\S\25.0 Normal 22.0-30.0 [facility] [employer] 250 DO Work Phone: Comment on above: PERFORMED BY:[facility] [place]Bet[place], [place] [id number] MEDICAL DIRECTORROBERTO CARLOS MURILLO M.D. 102\S\102 Normal 95-114 [facility] DO Work Phone: 4.2\S\4.2 Normal 3.5-5.1 [facility] 250 DO Work Phone: 140\S\140 Normal 136-146 [facility] 250 DO Work Phone: Laboratory - Microbiology an d Antimicrobial susceptibilityon 10-27-2021 SARS-CoV-2 (COVID-19) RNA GISSEL+probe Ql (Unsp spec) [facility] 250 DO Work Phone: No Panel Informationon 10-27 Negative Normal Negative [place] [address] DO Work Phone: Comment on above: This is a duplicate Sharifa SARS Antigen (JAYMIE) result to be used for statistical tracking purpose only.PERFORMED BY:[facility] [place], [place] [id number] MEDICAL DIRECTORROBERTO CARLOS MURILLO M.D. Falls Risk Screeningon 10-14 Fall risk assessment a) No falls within the last year [facility] 250 DO Work Phone: Falls Risk Screeningon 09-24 Fall risk assessment b) One or more fall s in the last year [facility] 600 DO Work Phone: Tobacco use status CPHS b) No [facility] 600 DO Work Phone: A1C HEMOGLOBINon 09-15-2021 HbA1c (Bld) [Mass fraction] 5.6 % [employer] Other HbA1c (Bld) [Mass fraction]o n 09-15-2021 A1C HEMOGLOBIN [employer] Other CBC AUTO DIFFon 12-15-2018 Basophils #/vol (Bld) 0.0 103/ul Normal 0.0-0.1 [facility] Comment on above: Performed By: #### C BC ####[facility] [address] [place] [id number]anna Basophils/100 WBC (Bld) 0.4 % Normal 0.2-2.0 [facility] Comment on above: Performed By: #### C BC ####[facility] [address] [place] [address] Bryanna Eosinophils #/vol (Bld) 0.1 103/ul Normal 0.0-0.7 [facility] Comment on above: Performed By: #### C BC ####[facility] [address] [place] [address] [place] Eosinophils/100 WBC (Bld) 0.7 % Critically low 0.9-7.0 [facility] Comment on above: Performed By: #### C BC ####[facility] [address] [place] [address] Bryanna Erythrocyte distribution width Ratio (RBC) 13.2 % Normal 11.0-15.0 [facility] Comment on above: Performed By: #### C BC ####[facility] [address] [place] [address] Bryanna Hematocrit Volume Fraction (Bld) 34.9 % Critically low 36.0-48.0 [facility] Comment on above: Performed By: #### C BC ####[facility] [address] [place] [address] Bryanna Hemoglobin mass conc (Bld) 11.4 g/dL Critically low 12.0-16.0 [facility] Comment on above: Performed By: #### C BC ####[facility] [address] [place] [address] Bryanna IG # 0.06 10e3/ul Critically high 0.00-0.03 [facility] Comment on above: Performed By: #### C BC ####[facility] [address] [place] [address] Bryanna IG % 0.6 % Critically high 0.0-0.5 [facility] Comment on above: Performed By: #### C BC ####[facility] [address] [place] [address] Bryanna Lymphocytes #/vol (Bld) 2.0 103/ul Normal 1.2-3.8 [facility] Comment on above: Performed By: #### C BC ####[facility] [address] [place], [place] [id number] Gould Lymphocytes/100 WBC (Bld) 18.9 % Critically low 20.5-60.0 [facility] Comment on above: Performed By: #### C BC ####[facility] [address] [place] [address] Bryanna MANUAL DIFF REQ NO Normal [facility] Comment on above: Performed By: #### C BC ####[facility] [address] [place] [address] Bryanna MCH Entitic mass (RBC) 30.2 pg Normal 26.7-34.0 [facility] Comment on above: Performed By: #### C BC ####[facility] [address] [place] [address] Bryanna MCHC mass conc (RBC) 32.7 g/dL Normal 29.9-35.2 [facility] Comment on above: Performed By: #### C BC ####[facility] [address] [place] [address] Bryanna MCV Entitic volume (RBC) 92.3 fL Normal 81.0-99.0 [facility] Comment on above: Performed By: #### C BC ####[facility] [address] [place] [address] Bryanna Monocytes #/vol (Bld) 0.9 103/ul Critically high 0.3-0.8 [facility] Comment on above: Performed By: #### C BC ####[facility] [address] [place], [place] [id number] Gould Monocytes/100 WBC (Bld) 8.3 % Normal 1.7-12.0 [facility] Comment on above: Performed By: #### C BC ####[facility] [address] [place] [address] Bryanna Neutrophils #/vol (Bld) 7.6 103/ul Critically high 1.4-6.5 [facility] Comment on above: Performed By: #### C BC ####[facility] [address] Bryanna Neutrophils/100 WBC (Bld) 71.1 % Normal 43.0-75.0 [facility] Comment on above: Performed By: #### C BC ####[facility] [address] [place] [address] Bryanna Platelet mean volume Entitic volume (Bld) 9.5 fL Normal 9.5-13.5 [facility] Comment on above: Performed By: #### C BC ####[facility] [address] [place] [address] Bryanna Platelets #/vol (Bld) 151 103/ul Normal 150-450 [facility] Comment on above: Performed By: #### C BC ####[facility] [address] [place] [address] Bryanna RBC #/vol (Bld) 3.78 106/ul Critically low 4.20-5.40 [facility] Comment on above: Performed By: #### C BC ####[facility] [address] [place] [address] Bryanna WBC #/vol (Bld) 10.7 103/ul Normal 4.0-11.0 [facility] Comment on above: Performed By: #### C BC ####[facility] [address] [place] [address] Bryanna PROF CHEM 8 (BAS METB)on Anion gap molar conc 7.1 mmol/L Normal [facility] Comment on above: Performed By: #### B MP ####[facility] [address] [place] [address] Bryanna Calcium mass conc 9.5 mg/dL Normal 8.4-10.2 The [facility] Comment on above: Performed By: #### B MP ####[facility] [address] [place] [address] Bryanna Chloride molar conc 109 mmol/L Critically high 98-107 [facility] Comment on above: Performed By: #### B MP ####[facility] [address] [place] [address] Bryanna CO2 molar conc 30.0 mmol/L Normal 22.0-30.0 The [facility] Comment on above: Performed By: #### B MP ####[facility] [address] [place] [id number] Bryanna Creatinine mass conc 0.93 mg/dL Normal 0.52-1.04 [facility] Comment on above: Performed By: #### B MP ####[facility] [address] Bryanna EGFR-AF ST LUCIAN >60 Normal >=60 The [facility] Comment on above: Performed By: #### B MP ####[facility] [address] [place] [address] Bryanna EGFR-NON AF [facility]CIAN 59 mL/min/1.73m2 Critically low >=60 [facility] Comment on above: Performed By: #### B MP ####[facility] [address] [place] [address] Bryanna Glucose mass conc 95 mg/dL Normal 74-106 The [facility] Comment on above: Performed By: #### B MP ####[facility] [address] [place] [address] Bryanna Potassium molar conc 4.1 mmol/L Normal 3.4-5.0 [facility] Comment on above: Performed By: #### B MP ####[facility] [address] [place] [address] Bryanna Sodium molar conc 142 mmol/L Normal 137-145 The [facility] Comment on above: Performed By: #### B MP ####[facility] [address] Bryanna Urea nitrogen mass conc 18.0 mg/dL Critically high 7.0-17.0 [facility] Comment on above: Performed By: #### B MP ####[facility] [address] [place], [place] [address]Dzsceg Karen Urea nitrogen/Creatinine mass ratio 19.4 mg/mg Normal [facility] Comment on above: Performed By: #### B MP ####[facility] [address] [place], [place] [address]Mgxeac Bryanna CBC AUTO DIFFon 12-14-2018 Basophils #/vol (Bld) 0.0 103/ul Normal 0.0-0.1 [facility] Comment on above: Performed By: #### C BC #### [facility] [address] [place] [id number] Marie Bryanna Basophils/100 WBC (Bld) 0.1 % Critically low 0.2-2.0 [facility] Comment on above: Performed By: #### C BC #### [facility] [address] [place] [address] Marie Bryanna Eosinophils #/vol (Bld) 0.0 103/ul Normal 0.0-0.7 [facility] Comment on above: Performed By: #### C BC #### [facility] [address] [place], [place] [address] Marie Bryanna Eosinophils/100 WBC (Bld) 0.0 % Critically low 0.9-7.0 [facility] Comment on above: Performed By: #### C BC #### [facility] [address] [place], [place] [address] Mariejluis Gould Erythrocyte distribution width Ratio (RBC) 12.7 % Normal 11.0-15.0 [facility] Comment on above: Performed By: #### C BC #### [facility] [address] [place], [place] [address] Mariejluis Gould Hematocrit Volume Fraction (Bld) 37.3 % Normal 36.0-48.0 [facility] Comment on above: Performed By: #### C BC #### [facility] [address] [place], [place] [address] Mariejluis Gould Hemoglobin mass conc (Bld) 12.6 g/dL Normal 12.0-16.0 [facility] Comment on above: Performed By: #### C BC #### [facility] [address] [place] [address] Marie Bryanna IG # 0.12 10e3/ul Critically high 0.00-0.03 [facility] Comment on above: Performed By: #### C BC #### [facility] [address] [place] [id number] Marie Bryanna IG % 0.7 % Critically high 0.0-0.5 [facility] Comment on above: Performed By: #### C BC #### [facility] [address] [place] [address] Marie Bryanna Lymphocytes #/vol (Bld) 1.0 103/ul Critically low 1.2-3.8 [facility] Comment on above: Performed By: #### C BC #### [facility] [address] [place] [address] Marie Bryanna Lymphocytes/100 WBC (Bld) 5.9 % Critically low 20.5-60.0 [facility] Comment on above: Performed By: #### C BC #### [facility] [address] [place], [place] [id number] Marie Gould MANUAL DIFF REQ NO Normal [facility] Comment on above: Performed By: #### C BC #### [facility] [address] [place] [address] Mariejluis Gould MCH Entitic mass (RBC) 30.2 pg Normal 26.7-34.0 [facility] Comment on above: Performed By: #### C BC #### [facility] [address] [place] [address] Mariejluis Gould MCHC mass conc (RBC) 33.8 g/dL Normal 29.9-35.2 [facility] Comment on above: Performed By: #### C BC #### [facility] [address] [place] [address] Marie Bryanna MCV Entitic volume (RBC) 89.4 fL Normal 81.0-99.0 [facility] Comment on above: Performed By: #### C BC #### [facility] [address] [place], [place] [address] Marie Bryanna Monocytes #/vol (Bld) 1.0 103/ul Critically high 0.3-0.8 [facility] Comment on above: Performed By: #### C BC #### [facility] [address] [place] [id number] Marie Bryanna Monocytes/100 WBC (Bld) 6.3 % Normal 1.7-12.0 [facility] Comment on above: Performed By: #### C BC #### [facility] [address] [place], [place] [address] Marie Bryanna Neutrophils #/vol (Bld) 14.1 103/ul Critically high 1.4-6.5 [facility] Comment on above: Performed By: #### C BC #### [facility] [address] [place], [place] [address] Marie Bryanna Neutrophils/100 WBC (Bld) 87.0 % Critically high 43.0-75.0 [facility] Comment on above: Performed By: #### C BC #### [facility] [address] [place], [place] [address] Marie Bryanna Platelet mean volume Entitic volume (Bld) 9.6 fL Normal 9.5-13.5 The [facility] Comment on above: Performed By: #### C BC #### [facility] [address] [place], [place] [address] Marie Bryanna Platelets #/vol (Bld) 188 103/ul Normal 150-450 [facility] Comment on above: Performed By: #### C BC #### [facility] [address] [place], [place] [address] Marie Bryanna RBC #/vol (Bld) 4.17 106/ul Critically low 4.20-5.40 [facility] Comment on above: Performed By: #### C BC #### [facility] [address] [place], [place] [address] Marie Bryanna WBC #/vol (Bld) 16.2 103/ul Critically high 4.0-11.0 [facility] Comment on above: Performed By: #### C BC #### [facility] [address] [place] [id number] Mariejluis Yehen GLYCOHEMOGLOBIN A1Con 2018 Glucose mass conc 126 mg/dL Normal [facility] Comment on above: Performed By: #### A 1C #### [facility] [address] [place] [id number] Marie Bryanna Hemoglobin A1c/Hemoglobin.total mass fraction (Bld) 6.0 % Normal <=6.0 [facility] Comment on above: Performed By: #### A 1C #### [facility] [address] [place] [id number] Mariejluis Yehen PROF CHEM 8 (BAS METB)on Anion gap molar conc 10.8 mmol/L Normal [facility] Comment on above: Performed By: #### B MP #### [facility] [address] [place], [place] [address] Marie Bryanna Calcium mass conc 9.6 mg/dL Normal 8.4-10.2 [facility] Comment on above: Performed By: #### B MP #### [facility] [address] [place] [id number] Marie Bryanna Chloride molar conc 106 mmol/L Normal 98-107 [facility] Comment on above: Performed By: #### B MP #### [facility] [address] [place], [place] [address] Marie Bryanna CO2 molar conc 27.3 mmol/L Normal 22.0-30.0 [facility] Comment on above: Performed By: #### B MP #### [facility] [address] [id number] Marie Bryanna Creatinine mass conc 1.20 mg/dL Critically high 0.52-1.04 [facility] Comment on above: Performed By: #### B MP #### [facility] [address] [place] [address] Marie Bryanna EGFR-AF [facility]CIAN 53 mL/min/1.73m2 Critically low >=60 [facility] Comment on above: Performed By: #### B MP #### [facility] [address] [place] [address] Marie Bryanna EGFR-NON AF [facility] 44 mL/min/1.73m2 Critically low >=60 [facility] Comment on above: Performed By: #### B MP #### [facility] [address] [id number] Marie Gould Glucose mass conc 151 mg/dL Critically high 74-106 [facility] Comment on above: Performed By: #### B MP #### [facility] [address] [place] [address] Marie Gould Potassium molar conc 4.1 mmol/L Normal 3.4-5.0 [facility] Comment on above: Performed By: #### B MP #### [facility] [address] [place] [address] Marie Gould Sodium molar conc 140 mmol/L Normal 137-145 [facility] Comment on above: Performed By: #### B MP #### [facility] [address] [place] [address] Marie Gould Urea nitrogen mass conc 25.0 mg/dL Critically high 7.0-17.0 [facility] Comment on above: Performed By: #### B MP #### [facility] [address] [place] [id number] Marie Gould Urea nitrogen/Creatinine mass ratio 20.8 mg/mg Normal [facility] Comment on above: Performed By: #### B MP #### [facility] [address] [place] [address] Marie Gould XR HEEL LT 2Von 12-13-2018 XR HEEL LT 2V [address] [place], [place] [id number] Patient: [facility] Exam Date: 12/13/2018 : 1940 Gender:F Ordering : DR. DARVIN CortezPBridger Admission #: [id number] Family : Order #: [id number] CLICK HERE TO VIEW EXAM RADIOLOGY REPORT [...] M.D. on 12/13/2018 at 13:14 Normal [facility] CBC AUTO DIFFon 12-06-2018 Basophils #/vol (Bld) 0.0 103/ul Normal 0.0-0.1 [facility] Comment on above: Performed By: #### C BC #### [facility] [address] [place] [address] Marie Bryanna Basophils/100 WBC (Bld) 0.6 % Normal 0.2-2.0 [facility] Comment on above: Performed By: #### C BC #### [facility] [address] [place] [address] Marie Bryanna Eosinophils #/vol (Bld) 0.1 103/ul Normal 0.0-0.7 [facility] Comment on above: Performed By: #### C BC #### [facility] [address] [place] [address] Marie Bryanna Eosinophils/100 WBC (Bld) 1.1 % Normal 0.9-7.0 [facility] Comment on above: Performed By: #### C BC #### [facility] [address] [place] [address] Mariejluis Gould Erythrocyte distribution width Ratio (RBC) 13.0 % Normal 11.0-15.0 [facility] Comment on above: Performed By: #### C BC #### [facility] [address] [place] [address] Mariejluis Yehen Hematocrit Volume Fraction (Bld) 41.8 % Normal 36.0-48.0 [facility] Comment on above: Performed By: #### C BC #### [facility] [address] [place], [place] [address] Marie Gould Hemoglobin mass conc (Bld) 13.9 g/dL Normal 12.0-16.0 [facility] Comment on above: Performed By: #### C BC #### [facility] [address] [place] [address] Marie Gould IG # 0.03 10e3/ul Normal 0.00-0.03 [facility] Comment on above: Performed By: #### C BC #### [facility] [address] [place] [address] Marie Gould IG % 0.5 % Normal 0.0-0.5 [facility] Comment on above: Performed By: #### C BC #### [facility] [address] [place] [address] Marie Gould Lymphocytes #/vol (Bld) 1.7 103/ul Normal 1.2-3.8 [facility] Comment on above: Performed By: #### C BC #### [facility] [address] [place] [address] Marie Gould Lymphocytes/100 WBC (Bld) 26.4 % Normal 20.5-60.0 [facility] Comment on above: Performed By: #### C BC #### [facility] [address] [place] [address] Marie Gould MANUAL DIFF REQ NO Normal [facility] Comment on above: Performed By: #### C BC #### [facility] [address] [place] [address] Marie Gould MCH Entitic mass (RBC) 30.3 pg Normal 26.7-34.0 [facility] Comment on above: Performed By: #### C BC #### [facility] [address] [place] [address] Marie Gould MCHC mass conc (RBC) 33.3 g/dL Normal 29.9-35.2 [facility] Comment on above: Performed By: #### C BC #### [facility] [address] [place] [address] Marie Gould MCV Entitic volume (RBC) 91.3 fL Normal 81.0-99.0 [facility] Comment on above: Performed By: #### C BC #### [facility] [address] [place], [place] [address] Marie Bryanna Monocytes #/vol (Bld) 0.5 103/ul Normal 0.3-0.8 [facility] Comment on above: Performed By: #### C BC #### [facility] [address] [place], [place] [address] Marie Bryanna Monocytes/100 WBC (Bld) 7.4 % Normal 1.7-12.0 [facility] Comment on above: Performed By: #### C BC #### [facility] [address] [place], [place] [address] Marie Bryanna Neutrophils #/vol (Bld) 4.2 103/ul Normal 1.4-6.5 [facility] Comment on above: Performed By: #### C BC #### [facility] [address] [place] [id number] Marie Bryanna Neutrophils/100 WBC (Bld) 64.0 % Normal 43.0-75.0 [facility] Comment on above: Performed By: #### C BC #### [facility] [address] [place], [place] [address] Marie Bryanna Platelet mean volume Entitic volume (Bld) 9.4 fL Critically low 9.5-13.5 [facility] Comment on above: Performed By: #### C BC #### [facility] [address] [place] [id number] Marie Bryanna Platelets #/vol (Bld) 182 103/ul Normal 150-450 [facility] Comment on above: Performed By: #### C BC #### [facility] [address] [place], [place] [address] Marie Bryanna RBC #/vol (Bld) 4.58 106/ul Normal 4.20-5.40 [facility] Comment on above: Performed By: #### C BC #### [facility] [address] [place], [place] [address] Marie Bryanna WBC #/vol (Bld) 6.6 103/ul Normal 4.0-11.0 [facility] Comment on above: Performed By: #### C BC #### [facility] [address] [place] [address] Marie Gould PROF CHEM 8 (BAS METB)on Anion gap molar conc 12.2 mmol/L Normal [facility] Comment on above: Performed By: #### B MP #### [facility] [address] [place] [address] Marie Bryanna Calcium mass conc 10.2 mg/dL Normal 8.4-10.2 [facility] Comment on above: Performed By: #### B MP #### [facility] [address] [place] [address] Marie Bryanna Chloride molar conc 103 mmol/L Normal 98-107 [facility] Comment on above: Performed By: #### B MP #### [facility] [address] [place] [address] Marie Bryanna CO2 molar conc 31.7 mmol/L Critically high 22.0-30.0 [facility] Comment on above: Performed By: #### B MP #### [facility] [address] [place] [address] Marie Bryanna Creatinine mass conc 0.78 mg/dL Normal 0.52-1.04 [facility] Comment on above: Performed By: #### B MP #### [facility] [address] [place] [address] Marie Bryanna EGFR-AF [facility] LUCIAN >60 Normal >=60 [facility] Comment on above: Performed By: #### B MP #### [facility] [address] [place] [address] Marie Bryanna EGFR-NON AF [facility]AN >60 Normal >=60 [facility] Comment on above: Performed By: #### B MP #### [facility] [address] [place] [address] Marie Bryanna Glucose mass conc 103 mg/dL Normal 74-106 [facility] Comment on above: Performed By: #### B MP #### [facility] [address] [place] [address] Marie Bryanna Potassium molar conc 3.9 mmol/L Normal 3.4-5.0 [facility] Comment on above: Performed By: #### B MP #### [facility] [address] [place] [address] Marie Gould Sodium molar conc 143 mmol/L Normal 137-145 [facility] Comment on above: Performed By: #### B MP #### [facility] [address] [place] [address] Mariejluis Gould Urea nitrogen mass conc 21.0 mg/dL Critically high 7.0-17.0 [facility] Comment on above: Performed By: #### B MP #### [facility] [address] [place] [address] Mariejluis Gould Urea nitrogen/Creatinine mass ratio 26.9 mg/mg Normal [facility] Comment on above: Performed By: #### B MP #### [facility] [address] [place] [address] Mariejluis Gould PROTIMEon 12-06-2018 INR Coag RelTime (PPP) 1.01 {INR} Normal [facility] Comment on above: Performed By: #### P T, PTT #### [facility] [address] [place] [address] Mariejluis Gould Prothrombin time (PT) Coag time (PPP) 10.4 s Normal 9.0-11.6 [facility] Comment on above: Performed By: #### P T, PTT #### [facility] [address] [place] [address] Marie Bryanna Prothrombin time (PT) Coag time (PPP) PLEASE NOTE: NORMAL RANGE CHANGE 06-28-2014 DUE TO REAGENT LOT CHANGE Normal [facility] Comment on above: Performed By: #### P T, PTT #### [facility] [address] [place] [address] Marie Bryanna Prothrombin time (PT) Coag time (PPP) SEE BELOW Normal [facility] Comment on above: Result Comment: KARLY RED INR: 2.0 - 3.0 CONDITIONS NOT LISTED BELOW 2.5 - 3.5 FOR PROSTHETIC HEART VALVE REPLACEMENT 2.5 - 3.5 RECURRENT THROMBOSIS Performed By: #### P T, PTT #### [facility] [address] [place], [place] [address] Marie Gould PTTon 12-06-2018 aPTT Coag time (Bld) PLEASE NOTE: NORMAL RANGE CHANGE 09-04-2015 DUE TO REAGENT LOT CHANGE Normal [facility] Comment on above: Performed By: #### P T, PTT #### [facility] [address] [place], [place] [address] Marie Gould aPTT Coag time (Bld) 30.5 s Normal 22.3-36.2 [facility] Comment on above: Performed By: #### P T, PTT #### [facility] [address] [place] [id number] Marie Gould XR ANKLE LT MIN 3 Von 2018 XR ANKLE LT MIN [address] [place] [id number] Patient: [facility] Exam Date: 11/18/2018 : 1940 Gender:F Ordering : DARVIN RobertBetty NOLASCOLYDIA Admission #: [id number] Family : Order #: [id number] CLICK HERE TO VIEW EXAM RADIOLOGY REPORT [...] Balderas M.D. on 11/18/2018 at 15:26 Normal [facility] XR FOOT LT MIN 3 VIEWSon XR FOOT LT MIN [address] [place] [id number] Patient: D[facility]WIN [facility] Exam Date: 11/18/2018 : 1940 Gender:F Ordering : DARVIN HUTCHINS Admission #: [id number] Family : Order #: [id number] CLICK HERE TO VIEW EXAM RADIOLOGY REPORT [...] Balderas M.D. on 11/18/2018 at 15:25 Normal [facility] Vital Signs Date Time Vital Sign Value Performing Clinician Facility 09-20-2023 16:00-0500 Body height 160.02 cm Javier Usman Other [facility] Other 09-20-2023 16:00-0500 Body mass index (BMI) [Ratio] 26.04 kg/m2 Javier Usman Other [facility] Other 09-20-2023 16:00-0500 Body temperature 97.9 [degF] Javier Usman Other [facility] Other 09-20-2023 16:00-0500 Body weight 66.68 kg Javier Usman Other [facility] Other 09-20-2023 16:00-0500 Diastolic blood pressure 70 mm[Hg] Javier Usman Other [facility] Other 09-20-2023 16:00-0500 Respiratory rate 20 /min Javier Usman Other [facility] Other 09-20-2023 16:00-0500 SaO2% (BldA) [Mass fraction] 99 % Javier Usman Other [facility] Other 09-20-2023 16:00-0500 Systolic blood pressure 140 mm[Hg] Javier Usman Other [facility] Other 06-21-2023 10:45-0400 Body height 160.02 cm Javier Usman Other [facility] Other 06-21-2023 10:45-0400 Body mass index (BMI) [Ratio] 24.8 kg/m2 Javier Usman Other [facility] Other 06-21-2023 10:45-0400 Body temperature 96 [degF] Javier Usman Other [facility] Other 06-21-2023 10:45-0400 Body weight 63.5 kg Javier Usman Other [facility] Other 06-21-2023 10:45-0400 Diastolic blood pressure 82 mm[Hg] Javier Usman Other [facility] Other 06-21-2023 10:45-0400 Respiratory rate 20 /min Javier Usman Other [facility] Other 06-21-2023 10:45-0400 SaO2% (BldA) [Mass fraction] 97 % Javier Usman Other [facility] Other 06-21-2023 10:45-0400 Systolic blood pressure 116 mm[Hg] Javier Usman Other [facility] Other 06-02-2023 09:33-0400 Body height 162.56 cm Javier M Usman Work Phone: [facility] [employer] 600 DO Work Phone: 06-02-2023 09:33-0400 Body mass index (BMI) [Ratio] 24.55 kg/m2 Javier M Usman Work Phone: [facility] 600 DO Work Phone: 06-02-2023 09:33-0400 Body surface area Derived from formula 1.7 m2 Javier M Usman Work Phone: [facility] [employer] 600 DO Work Phone: 06-02-2023 09:33-0400 Body weight 64.86 kg Javier M Usman [facility] 600 DO Work Phone: 06-02-2023 09:33-0400 Diastolic blood pressure 70 mm[Hg] Javier M Usman Work Phone: [facility] [employer] 600 DO Work Phone: 06-02-2023 09:33-0400 Heart rate 60 /min Javier M Usman Work Phone: [facility] 600 DO Work Phone: 06-02-2023 09:33-0400 Systolic blood pressure 136 mm[Hg] Javier M Usman Work Phone: [facility] [employer] 600 DO Work Phone: 05-10-2023 13:30-0400 Body height 160.02 cm Javier Usman Other [facility] Other 05-10-2023 13:30-0400 Body mass index (BMI) [Ratio] 25.51 kg/m2 Javier Usman Other [facility] Other 05-10-2023 13:30-0400 Body temperature 97.7 [degF] Javier Usman Other [facility] Other 05-10-2023 13:30-0400 Body weight 65.32 kg Javier Usman Other [facility] Other 05-10-2023 13:30-0400 Diastolic blood pressure 58 mm[Hg] Javier Usman Other [facility] Other 05-10-2023 13:30-0400 Respiratory rate 20 /min Javier Usman Other [facility] Other 05-10-2023 13:30-0400 SaO2% (BldA) [Mass fraction] 94 % Javier Usman Other [facility] Other 05-10-2023 13:30-0400 Systolic blood pressure 110 mm[Hg] Javier Usman Other [facility] Other 04-21-2023 16:30-0400 Body height 160.02 cm Javier Usman Other [facility] Other 04-21-2023 16:30-0400 Body mass index (BMI) [Ratio] 26.21 kg/m2 Javier Usman Other [facility] Other 04-21-2023 16:30-0400 Body temperature 98 [degF] Javier Usman Other [facility] Other 04-21-2023 16:30-0400 Body weight 67.13 kg Javier Usman Other [facility] Other 04-21-2023 16:30-0400 Diastolic blood pressure 62 mm[Hg] Javier Usman Other [facility] Other 04-21-2023 16:30-0400 Respiratory rate 20 /min Javier Usman Other [facility] Other 04-21-2023 16:30-0400 SaO2% (BldA) [Mass fraction] 97 % Javier Usman Other [employer] Other 04-21-2023 16:30-0400 Systolic blood pressure 108 mm[Hg] Javier Usman Other [employer] Other 02-17-2023 14:12-0400 Blood Pressure Location Paul Cannony [facility] 02-17-2023 14:12-0400 Diastolic blood pressure 71 mm[Hg] Paul Lingmariaelenay [facility] 02-17-2023 14:12-0400 Heart rate 65 /min Paul Lingurany [facility] 02-17-2023 14:12-0400 SaO2% (BldA) [Mass fraction] 97 % Paul Sushilurany [facility] 02-17-2023 14:12-0400 Systolic blood pressure 152 mm[Hg] Paul Mourany [facility] 02-17-2023 13:47-0400 Blood Pressure Location Paul Mourany [facility] 02-17-2023 13:47-0400 Diastolic blood pressure 73 mm[Hg] Paul Mourany [facility] 02-17-2023 13:47-0400 Heart rate 63 /min Paul Mourany [facility] 02-17-2023 13:47-0400 SaO2% (BldA) [Mass fraction] 95 % Paul Mourany [facility] 02-17-2023 13:47-0400 Systolic blood pressure 157 mm[Hg] Paul Mourany [facility] 02-17-2023 11:57-0400 Heart rate 58 /min Paul Mourany [facility] 02-17-2023 11:57-0400 SaO2% (BldA) [Mass fraction] 94 % Paul Mourany [facility] 02-17-2023 11:56-0400 Diastolic blood pressure 78 mm[Hg] Paul Mourany [facility] 02-17-2023 11:56-0400 Mean blood pressure 99 mm[Hg] Paul Mourany [facility] 02-17-2023 11:56-0400 Systolic blood pressure 142 mm[Hg] Paul Mourany [facility] 02-17-2023 11:56-0400 Body temperature 96.8 [degF] Paul Mourany [facility] 02-17-2023 11:54-0400 Respiratory rate 16 /min Paul Mourany [facility] 01-11-2023 13:40-0400 Diastolic blood pressure 81 mm[Hg] Paul Mourany [facility] [place] 01-11-2023 13:40-0400 Heart rate 71 /min Paul Lingurany [facility] [place] 01-11-2023 13:40-0400 SaO2% (BldA) [Mass fraction] 98 % Paul Lingurany [facility] [place] 01-11-2023 13:40-0400 Systolic blood pressure 158 mm[Hg] Paul Mourany [facility] [place] 01-04-2023 10:34-0400 Blood Pressure Location Paul Mourany [facility] [place] 01-04-2023 10:34-0400 Diastolic blood pressure 78 mm[Hg] Paul Lingurany [facility] [place] 01-04-2023 10:34-0400 Heart rate 69 /min Paul Lingurany [facility] [place] 01-04-2023 10:34-0400 SaO2% (BldA) [Mass fraction] 97 % Paul Lignurany [facility] [place] 01-04-2023 10:34-0400 Systolic blood pressure 147 mm[Hg] Paul Mourany [facility] [place] 12-28-2022 16:29-0400 Body temperature 98.42 [degF] Paul Puneet [facility] 12-28-2022 16:29-0400 Diastolic blood pressure 79 mm[Hg] Paul Puneet [facility] 12-28-2022 16:29-0400 Heart rate 81 /min Paul Puneet [facility] 12-28-2022 16:29-0400 Respiratory rate 18 /min Paul Teixeira [facility] 12-28-2022 16:29-0400 SaO2% (BldA) [Mass fraction] 99 % Paul Teixeira [facility] 12-28-2022 16:29-0400 Systolic blood pressure 151 mm[Hg] Paul Teixeira [facility] 11-30-2022 14:45-0500 Body height 160.02 cm Javier Usman Other [employer] Other 11-30-2022 14:45-0500 Body mass index (BMI) [Ratio] 26.92 kg/m2 Javier Usman Other [employer] Other 11-30-2022 14:45-0500 Body temperature 97.6 [degF] Javier Usman Other [employer] Other 11-30-2022 14:45-0500 Body weight 68.95 kg Javier Usman Other [employer] Other 11-30-2022 14:45-0500 Diastolic blood pressure 64 mm[Hg] Javier Usman Other [employer] Other 11-30-2022 14:45-0500 Respiratory rate 20 /min Javier Usman Other [employer] Other 11-30-2022 14:45-0500 SaO2% (BldA) [Mass fraction] 97 % Javier Usman Other [employer] Other 02-20-2023 14:45-0500 Systolic blood pressure 124 mm[Hg] Javier Usman Other [facility] [employer] Other 11-12-2022 11:47-0500 Body temperature 97.88 [degF] Sanjeev Johnston [facility] 11-12-2022 11:47-0500 Diastolic blood pressure 81 mm[Hg] Sanjeev Preston [facility] 11-12-2022 11:47-0500 Heart rate 72 /min Sanjeev Johnston [facility] 11-12-2022 11:47-0500 Respiratory rate 19 /min Sanjeev Johnston [facility] 11-12-2022 11:47-0500 SaO2% (BldA) [Mass fraction] 97 % Sanjeev Johnston [facility] 11-12-2022 11:47-0500 Systolic blood pressure 153 mm[Hg] Sanjeev Johnston [facility] 10-20-2022 11:14-0500 Diastolic blood pressure 62 mm[Hg] Javier M Usman Work Phone: [facility] [employer] [address] DO Work Phone: 10-20-2022 11:14-0500 Systolic blood pressure 135 mm[Hg] Javier M Usman Work Phone: [facility] [employer] [address] DO Work Phone: 10-20-2022 11:00-0500 Body height 162.56 cm Javier M Usman Work Phone: [facility] [employer] [address] DO Work Phone: 10-20-2022 11:00-0500 Body mass index (BMI) [Ratio] 25.23 kg/m2 Javier M Usman Work Phone: [facility] [employer] 600 DO Work Phone: 10-20-2022 11:00-0500 Body surface area Derived from formula 1.72 m2 Javier M Usman Work Phone: [facility] [employer] 600 DO Work Phone: 10-20-2022 11:00-0500 Body weight 66.68 kg J[facility] M [facility] DO Work Phone: 10-20-2022 11:00-0500 Heart rate 75 /min Javier M Usman [facility] DO Work Phone: 10-20-2022 11:00-0500 Systolic blood pressure 140 mm[Hg] Javier M Usman [facility] 600 DO Work Phone: 09-15-2022 11:45-0500 Body height 160.02 cm Javier Usman Other [employer] Other 09-15-2022 11:45-0500 Body mass index (BMI) [Ratio] 27.45 kg/m2 Javier Usman Other [employer] Other 09-15-2022 11:45-0500 Body temperature 98.5 [degF] Javier Usman Other [employer] Other 09-15-2022 11:45-0500 Body weight 70.31 kg Javier Usman Other [employer] Other 09-15-2022 11:45-0500 Diastolic blood pressure 60 mm[Hg] Javier Usman Other [facility] [employer] Other 09-15-2022 11:45-0500 Respiratory rate 20 /min Javeir Drapergles Other [facility] [employer] Other 09-15-2022 11:45-0500 SaO2% (BldA) [Mass fraction] 97 % Javiervincent Baileyes Other [facility] [employer] Other 09-15-2022 11:45-0500 Systolic blood pressure 126 mm[Hg] Javier Drapergles Other [facility] [employer] Other 05-11-2022 08:50-0400 Body temperature 97.7 [degF] Paul Teixeira [facility] 05-11-2022 08:50-0400 Diastolic blood pressure 75 mm[Hg] Paul Teixeira [facility] 05-11-2022 08:50-0400 Heart rate 71 /min Paul Teixeira [facility] 05-11-2022 08:50-0400 Respiratory rate 18 /min Paul Teixeira [facility] 05-11-2022 08:50-0400 SaO2% (BldA) [Mass fraction] 96 % Paul Teixeira [facility] 05-11-2022 08:50-0400 Systolic blood pressure 154 mm[Hg] Paul Teixeira [facility] 04-08-2022 10:58-0400 Body height 165.1 cm Javier Laine Mary Work Phone: [facility] 600 DO Work Phone: 04-08-2022 10:58-0400 Body mass index (BMI) [Ratio] 26.46 kg/m2 Javier Laine Usman [facility] Work Phone: 04-08-2022 10:58-0400 Body surface area Derived from formula 1.79 m2 Javier M Usman Work Phone: [facility] [employer] 600 DO Work Phone: 04-08-2022 10:58-0400 Body weight 72.12 kg Javier M Usman [facility] Work Phone: 04-08-2022 10:58-0400 Diastolic blood pressure 50 mm[Hg] Javier M Usman Work Phone: [facility] [employer] 600 DO Work Phone: 04-08-2022 10:58-0400 Heart rate 64 /min Javier M Usman [facility] Work Phone: 04-08-2022 10:58-0400 Systolic blood pressure 104 mm[Hg] Javier M Usman [facility] Work Phone: 03-16-2022 11:45-0400 Body height 160.02 cm Javier Usman Other [employer] [facility] [employer] Other 03-16-2022 11:45-0400 Body mass index (BMI) [Ratio] 29.23 kg/m2 Javier Usman Other [employer] Other 03-16-2022 11:45-0400 Body temperature 98.3 [degF] Javier Usman Other [employer] Other 03-16-2022 11:45-0400 Body weight 74.84 kg Javier Usman Other [employer] Other 03-16-2022 11:45-0400 Diastolic blood pressure 72 mm[Hg] Javier Usman Other [employer] Other 03-16-2022 11:45-0400 Respiratory rate 20 /min Javier Usman Other [employer] Other 03-16-2022 11:45-0400 SaO2% (BldA) [Mass fraction] 94 % Javier Usman Other [employer] Other 03-16-2022 11:45-0400 Systolic blood pressure 128 mm[Hg] Javier Usman Other [employer] Other 02-05-2022 12:15-0400 Body height 160.02 cm Javier Usman Other [employer] Other 02-05-2022 12:15-0400 Body mass index (BMI) [Ratio] 29.23 kg/m2 Javier Usman Other [employer] Other 02-05-2022 12:15-0400 Body temperature 98.7 [degF] Javier Usman Other [employer] Other 02-05-2022 12:15-0400 Body weight 74.84 kg Javier Usman Other [employer] Other 02-05-2022 12:15-0400 Diastolic blood pressure 62 mm[Hg] Javier Usman Other [employer] Other 02-05-2022 12:15-0400 Respiratory rate 20 /min Javier Usman Other [employer] Other 02-05-2022 12:15-0400 SaO2% (BldA) [Mass fraction] 95 % Javier Usman Other [employer] Other 02-05-2022 12:15-0400 Systolic blood pressure 122 mm[Hg] Javier Usman Other [employer] Other 01-31-2022 22:45-0400 Body temperature 98.6 [degF] Fletcher Livia [facility] 01-31-2022 22:45-0400 Diastolic blood pressure 68 mm[Hg] Fletcher Livia [facility] 01-31-2022 22:45-0400 Heart rate 80 /min Fletcher Livia [facility] 01-31-2022 22:45-0400 Mean blood pressure 87 mm[Hg] Fletcher Livia [facility] 01-31-2022 22:45-0400 Respiratory rate 17 /min Fletcher Livia [facility] 01-31-2022 22:45-0400 SaO2% (BldA) [Mass fraction] 99 % Fletcher Livia [facility] 01-31-2022 22:45-0400 Systolic blood pressure 125 mm[Hg] Fletcher Livia [facility] 01-31-2022 22:30-0400 Body temperature 98.24 [degF] Fletcher Livia [facility] 01-31-2022 22:30-0400 Diastolic blood pressure 80 mm[Hg] Fletcher Livia [facility] 01-31-2022 22:30-0400 Heart rate 76 /min Fletcher Livia [facility] 01-31-2022 22:30-0400 Mean blood pressure 93 mm[Hg] Fletcher Livia [facility] 01-31-2022 22:30-0400 Respiratory rate 18 /min Fletcher Livia [facility] 01-31-2022 22:30-0400 SaO2% (BldA) [Mass fraction] 97 % Fletcher Livia [facility] 01-31-2022 22:30-0400 Systolic blood pressure 120 mm[Hg] Fletcher Livia [facility] 01-31-2022 22:15-0400 Body temperature 98.6 [degF] Fletcher Livia [facility] 01-31-2022 22:15-0400 Diastolic blood pressure 86 mm[Hg] Fletcher Livia [facility] 01-31-2022 22:15-0400 Heart rate 79 /min Fletcher Livia [facility] 01-31-2022 22:15-0400 Mean blood pressure 102 mm[Hg] Fletcher Livia [facility] 01-31-2022 22:15-0400 Respiratory rate 17 /min Fletcher Livia [facility] 01-31-2022 22:15-0400 SaO2% (BldA) [Mass fraction] 99 % Fletcher Livia [facility] 01-31-2022 22:15-0400 Systolic blood pressure 135 mm[Hg] Fletcher Livia [facility] 11-18-2021 09:02-0500 Diastolic blood pressure 82 mm[Hg] Javier M Usman Work Phone: [facility] 600 DO Work Phone: 11-18-2021 09:02-0500 Systolic blood pressure 133 mm[Hg] Javier M Usman Work Phone: [facility] 600 DO Work Phone: 11-18-2021 08:34-0500 Body height 154.94 cm Javier M Usman Work Phone: [facility] 600 DO Work Phone: 11-18-2021 08:34-0500 Body mass index (BMI) [Ratio] 32.27 kg/m2 Javier M Usman Work Phone: [facility] 600 DO Work Phone: 11-18-2021 08:34-0500 Body surface area Derived from formula 1.77 m2 Javier M Usman Work Phone: [facility] 600 DO Work Phone: 11-18-2021 08:34-0500 Body weight 77.47 kg Javier M Usman Work Phone: [facility] 600 DO Work Phone: 11-18-2021 08:34-0500 Diastolic blood pressure 78 mm[Hg] Javier M Usman Work Phone: [facility] 600 DO Work Phone: 11-18-2021 08:34-0500 Heart rate 79 /min Javier M Usman Work Phone: [facility] 600 DO Work Phone: 11-18-2021 08:34-0500 Systolic blood pressure 146 mm[Hg] Javier M Usman Work Phone: [facility] 600 DO Work Phone: 10-14-2021 13:46-0500 Body height 162.56 cm Javier M Usman Work Phone: [facility] 250 DO Work Phone: 10-14-2021 13:46-0500 Body mass index (BMI) [Ratio] 28.87 kg/m2 Javier M Usman Work Phone: [facility] [address] DO Work Phone: 10-14-2021 13:46-0500 Body surface area Derived from formula 1.82 m2 Javier M Usman Work Phone: [facility] [address] DO Work Phone: 10-14-2021 13:46-0500 Body weight 76.3 kg Javier M Usman Work Phone: [facility] 250 DO Work Phone: 10-14-2021 13:46-0500 Diastolic blood pressure 82 mm[Hg] Javier M Usman Work Phone: [facility] 250 DO Work Phone: 10-14-2021 13:46-0500 Heart rate 87 /min Javier M Usman Work Phone: [facility] [address] DO Work Phone: 10-14-2021 13:46-0500 Systolic blood pressure 136 mm[Hg] Javier M Usman Work Phone: [facility] [address] DO Work Phone: 09-24-2021 11:44-0500 Body height 162.56 cm Javier M Usman Work Phone: [facility] 600 DO Work Phone: 09-24-2021 11:44-0500 Body mass index (BMI) [Ratio] 28.86 kg/m2 Javier M Usman Work Phone: [facility] 600 DO Work Phone: 09-24-2021 11:44-0500 Body surface area Derived from formula 1.82 m2 Javier M Usman Work Phone: [facility] 600 DO Work Phone: 09-24-2021 11:44-0500 Body weight 76.26 kg Javier M Usman Work Phone: [facility] 600 DO Work Phone: 09-24-2021 11:44-0500 Diastolic blood pressure 90 mm[Hg] Javier M Usman Work Phone: [facility] 600 DO Work Phone: 09-24-2021 11:44-0500 Heart rate 95 /min [facility] Work Phone: 09-24-2021 11:44-0500 Systolic blood pressure 143 mm[Hg] [facility] Work Phone: 09-15-2021 12:15-0500 Body height 160.02 cm Javier Usman Other [employer] Other 09-15-2021 12:15-0500 Body mass index (BMI) [Ratio] 30.47 kg/m2 Javier Usman Other [employer] Other 09-15-2021 12:15-0500 Body temperature 99.2 [degF] Javier Usman Other [employer] Other 09-15-2021 12:15-0500 Body weight 78.02 kg Javier Usman Other [employer] Other 09-15-2021 12:15-0500 Diastolic blood pressure 60 mm[Hg] Javier Usman Other [employer] Other 09-15-2021 12:15-0500 Respiratory rate 20 /min Javier Usman Other [employer] Other 09-15-2021 12:15-0500 SaO2% (BldA) [Mass fraction] 97 % Javier Usman Other [employer] Other 09-15-2021 12:15-0500 Systolic blood pressure 104 mm[Hg] Javier Usman Other [employer] Other 08-25-2021 13:00-0500 Body height 160.02 cm Aaron Norwood Other [employer] Other 08-25-2021 13:00-0500 Body mass index (BMI) [Ratio] 24.8 kg/m2 Aaron Norwood Other [employer] Other 08-25-2021 13:00-0500 Body temperature 98.4 [degF] Aaron Norwood Other [employer] Other 08-25-2021 13:00-0500 Body weight 63.5 kg Aaron Norwood Other [employer] Other 08-25-2021 13:00-0500 Diastolic blood pressure 80 mm[Hg] Aaron Españarer Other [employer] Other 08-25-2021 13:00-0500 SaO2% (BldA) [Mass fraction] 97 % Aaron Norwood Other [employer] Other 08-25-2021 13:00-0500 Systolic blood pressure 142 mm[Hg] Aaron Españarer Other [employer] Other 08-19-2021 12:30-0500 Body height 160.02 cm Eva Tantaylor Other [employer] Other 08-19-2021 12:30-0500 Body mass index (BMI) [Ratio] 24.8 kg/m2 Eva Tantaylor Other [employer] Other 08-19-2021 12:30-0500 Body temperature 97.6 [degF] Eva Tantaylor Other [employer] Other 08-19-2021 12:30-0500 Body weight 63.5 kg Eva Tantaylor Other [employer] Other 08-19-2021 12:30-0500 Diastolic blood pressure 70 mm[Hg] Eva Denisse Other [employer] Other 08-19-2021 12:30-0500 SaO2% (BldA) [Mass fraction] 97 % Eva Denisse Other [employer] Other 08-19-2021 12:30-0500 Systolic blood pressure 126 mm[Hg] Eva Salcedo Other [employer] Other Encounters Encounter Date Encounter Type Care Provider Facility Start: 09-20-2023 End: 09-20-2023 ambulatory Javier Usman Other [employer] Other Start: 09-20-2023 Office outpatient vi sit 25 minutes Javier Usman [facility] Start: 08-05-2023 End: 08-05-2023 ambulatory Javier Usman Other [employer] Other Start: 08-05-2023 Telephone encounter Javier Usman [facility] Start: 08-02-2023 End: 08-02-2023 ambulatory Javier Usman Other [employer] Other Start: 08-02-2023 Telephone encounter Javier Usman [facility] Start: 06-28-2023 End: 06-28-2023 ambulatory Javier Usman Other [employer] Other Start: 06-28-2023 Telephone encounter Javier Usman [facility] Start: 06-21-2023 End: 06-21-2023 ambulatory Javier Usman Other [employer] Other Start: 06-21-2023 Office outpatient vi sit 15 minutes Javier Usman [facility] Start: 06-17-2023 Chart Update Javier M Usman Work Phone: [facility] [address] [place] Work Phone: Start: 06-17-2023 Telephone encounter Javier Usman [facility] Start: 06-17-[address] Javier Mary Facility: Start: 06-17-2023 End: 06-18-2023 ambulatory Jones Rockwelli Facility:[facility] Start: 06-17-2023 End: 06-17-2023 Patient encounter procedure Jones Cuba [facility] Start: 06-05-2023 End: 06-06-2023 ambulatory Jones Rockwelli Facility:[facility] Start: 06-05-2023 End: 06-05-2023 Patient encounter procedure Jones Cuba [facility] Start: 06-02-2023 Office outpatient vi sit 25 minutes Javier M Usman Work Phone: [facility] 600 DO Work Phone: Start: 06-02-[address] Javier Mary Facility: Start: 05-10-2023 End: 05-10-2023 ambulatory Javier Usman Other [employer] Other Start: 05-10-2023 Office outpatient vi sit 15 minutes Javier Usman [facility] Start: 05-10-2023 Telephone encounter Javier Usman [facility] Start: 04-24-2023 End: 04-25-2023 ambulatory JAVIER M USMAN Facility:[facility] Start: 04-24-2023 End: 04-24-2023 Patient encounter procedure JAVIER M USMAN [facility] Start: 04-21-2023 End: 04-21-2023 ambulatory Javier Usman Other [place] [employer] Other Start: 04-21-2023 Office outpatient vi sit 25 minutes Javeir Usman [facility] Start: 04-21-2023 Telephone encounter Javier Usman [facility] Start: 04-06-2023 End: 04-06-2023 ambulatory Javier Usman Other [employer] Other Start: 04-06-2023 Telephone encounter Javier Usamn [facility] Start: 04-02-2023 End: 04-03-2023 ambulatory Jes Wolff Facility:[id number] Start: 04-02-2023 End: 04-02-2023 Off-Site [facility] Start: 03-23-2023 End: 03-24-2023 ambulatory Aaron HOLLIDAY Facility:[id number] Start: 03-22-2023 End: 04-03-2023 ambulatory Aaron HAWARDEN Facility:[facility] Start: 03-22-2023 End: 04-03-2023 Evaluation and management of inpatient Aaron HOLLIDAY [facility] Start: 03-20-2023 End: 03-22-2023 ambulatory Jag CARVER Facility:[facility] Start: 03-01-2023 End: 03-02-2023 ambulatory Paul Gomez Facility:[facility] Start: 02-17-2023 End: 02-17-2023 ambulatory Paul Gomez Facility:[facility] Start: 02-17-2023 End: 02-17-2023 Admission to same day surgery center Paul Gomez [facility] Start: 01-20-2023 End: 01-20-2023 ambulatory Javier Usman Other [employer] Other Start: 01-20-2023 Telephone encounter Javier Usman [facility] Start: 01-11-2023 End: 01-12-2023 ambulatory Paul Gomez Facility:[facility] Start: 01-11-2023 End: 01-11-2023 Patient encounter procedure Paul Gomez [facility] Start: 01-05-2023 End: 01-05-2023 ambulatory Javier Usman Other [employer] Other Start: 01-05-2023 Telephone encounter Javier Usman [facility] Start: 01-04-2023 End: 01-05-2023 ambulatory Paul Gomez Facility:[facility] Start: 01-04-2023 End: 01-05-2023 ambulatory Paul Gomez Facility:[facility] Start: 01-04-2023 End: 01-04-2023 Lab Drop off Paul Gomez [facility] Start: 01-04-2023 End: 01-09-2023 Pre-admission assessment Paul Gomez [facility] Start: 01-04-2023 End: 01-04-2023 Patient encounter procedure Paul Gomez [facility] Start: 12-28-2022 End: 12-28-2022 Emergency department patient visit Paul Teixeira Facility:[facility] Start: 12-28-2022 End: 12-28-2022 Emergency department patient visit Paul Teixeira [facility] Start: 12-28-2022 End: 12-28-2022 ambulatory Javier Usman Other [employer] Other Start: 12-28-2022 Telephone encounter Javier Usman [facility] Start: 12-05-2022 End: 12-05-2022 Emergency department patient visit Bruno Dowell Facility:[facility] Start: 12-04-2022 End: 12-04-2022 ambulatory Javier Usman Other [employer] Other Start: 12-04-2022 Telephone encounter Javier Usman [facility] Start: 11-30-2022 End: 11-30-2022 ambulatory Javier Usman Other [employer] Other Start: 11-30-2022 Office outpatient vi sit 25 minutes Javier Usman [facility] Start: 11-30-2022 Telephone encounter Javier Usman [facility] Start: 11-17-2022 End: 11-17-2022 ambulatory Javier Usman Other [employer] Other Start: 11-17-2022 Telephone encounter Javier Usman [facility] Start: 11-12-2022 End: 11-12-2022 ambulatory Javier Usman Other [employer] Other Start: 11-12-2022 Telephone encounter Javier Usman [facility] Start: 11-12-2022 End: 11-12-2022 Emergency department patient visit Sanjeev Johnston Facility:[facility] Start: 11-12-2022 End: 11-12-2022 Emergency department patient visit Sanjeev Johnston [facility] Start: 10-29-2022 End: 10-29-2022 ambulatory Javier Usman Other [employer] Other Start: 10-29-2022 Telephone encounter Javier Usman [facility] Start: 10-21-2022 AUDIT Javier M Usman Work Phone: [facility] 250 DO Work Phone: Start: 10-20-2022 Office outpatient vi sit 25 minutes Javier M Usman Work Phone: [facility] 600 DO Work Phone: Start: 10-20-[address] Jones [place] Facility:[facility] Start: 10-05-2022 Chart Update Javier M Usman Work Phone: [facility] 600 DO Work Phone: Start: 09-28-2022 End: 09-29-2022 ambulatory Jones [place] Facility:[facility] Start: 09-28-2022 End: 09-28-2022 Patient encounter procedure Jones Cuba [facility] Start: 09-15-2022 Rx Renewal Javier M Usman Work Phone: [facility] 250 DO Work Phone: Start: 09-15-2022 End: 09-15-2022 ambulatory Javier Usman Other [employer] Other Start: 09-15-2022 Office outpatient vi sit 25 minutes Javier Usman [facility] Start: 08-06-2022 Patient encounter procedure [facility] M [facility] Work Phone: Start: 07-28-2022 End: 07-28-2022 ambulatory Javier Usman Other [place] [employer] Other Start: 07-28-2022 Telephone encounter Javier Usman [facility] Start: 05-26-2022 End: 05-26-2022 ambulatory Javier Usman Other [employer] Other Start: 05-26-2022 Telephone encounter Javier Usman [facility] Start: 05-11-2022 End: 05-11-2022 Emergency department patient visit Paul Teixeira [facility] Start: 04-21-2022 End: 04-21-2022 ambulatory Javier Usman Other [place] [employer] Other Start: 04-21-2022 Telephone encounter Javier Usman [facility] Start: 04-08-2022 Office outpatient vi sit 25 minutes Javier M Usman Work Phone: [facility] 600 DO Work Phone: Start: 03-16-2022 End: 03-16-2022 ambulatory Javier Usman Other [employer] Other Start: 03-16-2022 Patient encounter procedure Javier Usman [facility] Start: 03-16-2022 Telephone encounter Javier Usman [facility] Start: 02-05-2022 End: 02-05-2022 ambulatory Javier Usman Other [place] [employer] Other Start: 02-05-2022 Office outpatient vi sit 15 minutes Javier Usman [facility] Start: 01-31-2022 End: 01-31-2022 Emergency department patient visit Fletcher Bhakta [facility] Start: 01-08-2022 End: 01-08-2022 ambulatory Javier Usman Other [employer] Other Start: 01-08-2022 Telephone encounter Javier Usman [facility] Start: 01-01-2022 End: 01-01-2022 ambulatory Javier Usman Other [employer] Other Start: 01-01-2022 Telephone encounter Javier Usman [facility] Start: 12-26-2021 End: 12-26-2021 ambulatory Javier Usman Other [employer] Other Start: 12-26-2021 Telephone encounter Javier Usman [facility] Start: 12-01-2021 End: 12-01-2021 ambulatory Javier Usman Other [employer] Other Start: 12-01-2021 Telephone encounter Javier Usman [facility] Start: 12-01-2021 Rx Renewal Javier M Usman [facility]: [facility] DO Work Phone: Start: 11-18-2021 Office outpatient vi sit 25 minutes Javier M Usman Work Phone: [facility] 600 DO Work Phone: Start: 10-29-2021 Chart Update Javier M Usman Work Phone: [facility] 250 DO Work Phone: Start: 10-29-2021 End: 10-29-2021 ambulatory Javier M. Usman Facility:[facility] Start: 10-15-2021 Telephone encounter Javier M Rug gles Work Phone: [facility] 250 DO Work Phone: Start: 09-24-2021 Office outpatient vi sit 25 minutes Javier M Usman Work Phone: [facility] 600 DO Work Phone: Start: 09-19-2021 Telephone encounter Javier Draper gles Work Phone: -[facility] [address] [place] Work Phone: Start: 09-18-2021 End: 09-18-2021 ambulatory Javier Usman Other [employer] Other Start: 09-18-2021 Telephone encounter Javier Usman [facility] Start: 09-16-2021 End: 09-16-2021 ambulatory Javier Usman Other [employer] Other Start: 09-16-2021 Telephone encounter Javier Usman [facility] Start: 09-15-2021 End: 09-15-2021 ambulatory Javier Usman Other [employer] Other Start: 09-15-2021 Office outpatient vi sit 25 minutes Javier Usman [facility] Start: 09-15-2021 Telephone encounter Javier Usman [facility] Start: 08-25-2021 End: 08-25-2021 ambulatory Aaron Norwood Other [employer] Other Start: 08-25-2021 Office outpatient vi sit 15 minutes Aaron Norwood [facility] Start: 08-21-2021 End: 08-21-2021 ambulatory Eva Salcedo Other [employer] Other Start: 08-21-2021 Telephone encounter Eva Mason [employer] Start: 08-19-2021 End: 08-19-2021 ambulatory Eva Salcedo Other [employer] Other Start: 11-09-2021 Office outpatient vi sit 15 minutes Eva Salcedo [facility] Vascular Surgery Start: 12-13-2018 End: 12-19-2018 Patient encounter procedure JAVIER MARY Facility:[facility] Start: 12-08-2018 Encounter for preprocedural cardiovascular examination DARVIN [facility] Start: 12-08-2018 Encounter for preprocedural laboratory examination DARVIN [facility] Start: 12-06-2018 End: 12-07-2018 [facility] Start: 11-18-2018 End: 11-19-2018 Patient encounter [facility] Encounter for preprocedural laboratory examination DARVIN [facility] Patient encounter status Javier Mary Work Phone: [facility] 250 DO Work Phone: Procedures Date Procedure [...] Jones [place], Status: Pen, Time: 10:10 AM [facility] 600 DO Work Phone: Start: 04-08-2023 FUV, Provider: Jones [place], Status: Pen, Time: 11:10 AM FUV, Provider: Jones [place], Status: Pen, Time: 11:10 AM [facility] 600 DO Work Phone: Start: 04-01-2023 FUV, Provider: Jones [place], Status: Pen, Time: 11:10 AM FUV, Provider: Jones [place], Status: Pen, Time: 11:10 AM [facility] 250 DO Work Phone: Start: 10-20-2022 FUV, Provider: Jones [place], Status: Pen, Time: 11:00 AM FUV, Provider: Jones [place], Status: Pen, Time: 11:00 AM [facility] 600 DO Work Phone: Start: 04-08-2022 FUV, Provider: Jones [place], Status: Pen, Time: 10:30 AM FUV, Provider: Jones [place], Status: Pen, Time: 10:30 AM [facility] 600 DO Work Phone: Start: 11-18-2021 FUV, Provider: Jones [place], Status: Pen, Time: 8:50 AM FUV, Provider: Jones [place], Status: Pen, Time: 8:50 AM [facility] 250A [place] Work Phone: Start: 10-29-2021 SURGNONUH, Provider: Jones [place], Status: Pen, Time: 10:00 AM [facility], Provider: Jones [place], Status: Pen, Time: 10:00 AM [facility] 250 DO Work Phone: Start: 10-14-2021 EKG, Provider: SHIRA COREY OXYACETYLENE CUTTER 1,[id number], Status: Pen, Time: 1:30 PM EKG, Provider: SHIRA COREY OXYACETYLENE CUTTER 1,[id number], Status: Pen, Time: 1:30 PM [facility] 600 DO Work Phone: Start: 09-24-2021 FUV, Provider: Jones [place], Status: Pen, Time: 11:00 AM FUV, Provider: Jones [place], Status: Pen, Time: 11:00 AM [facility] 250A [place] Work Phone: Immunizations Immunization Date Immunization Notes Care Provider Magalis navarro 08-19-2023 influenza, injectabl e, quadrivalent, contains preservative Javier Usman Other [employer] Other 08-01-2022 influenza virus vaccine, unspecified formulation Paul Gomez [facility] 01-31-2022 tetanus toxoid, redu neal diphtheria toxoid, and acellular pertussis vaccine, adsorbed; Translations: [Boostrix (Tdap)] Fletcher Bhakta [facility] 07-24-2021 Do not use COVID-19 Pfizer 2 dose Javier Usman Other [facility] 07-24-2021 Fluzone High-Dose Quadrivalent 0.7 ML Intramuscular Suspension Prefilled Syringe Javier M Usman Work Phone: [facility] 600 DO Work Phone: 07-24-2021 influenza virus vaccine, unspecified formulation Paul Gomez [facility] 07-24-2021 influenza, injectabl e, quadrivalent, contains preservative Javier Usman Other [facility] Other 12-06-2020 Do not use COVID-19 Pfizer 2 dose Javier Usman Other [facility] Comment on above: Result Comment: 2022: [id number] 11-14-2020 Pfizer-BioNTech COVID-19 Vacc 30 MCG/0.3ML Intramuscular Suspension Javier M Usman Work Phone: [facility] 600 DO Work Phone: 11-13-2020 Do not use COVID-19 Pfizer 2 dose Javier Usman Other [facility] Comment on above: Result Comment: 2022: [id number] 08-11-2020 influenza virus vaccine, unspecified formulation Paul Gomez [facility] 08-11-2020 influenza, high dose seasonal, preservative-free Javier Jang Usman Work Phone: [facility] 600 DO Work Phone: 08-07-2020 influenza virus vaccine, unspecified formulation Paul Gomez [facility] 08-07-2020 influenza, injectabl e, quadrivalent, contains preservative Eav Ruttino Other [facility] Other 08-14-2019 pneumococcal polysaccharide vaccine, 23 valent Eva Ruttino Other [facility] 07-14-2019 influenza virus vaccine, unspecified formulation Paul Gomez [facility] 07-14-2019 influenza, injectabl e, quadrivalent, contains preservative Eva Ruttino Other [facility] Other 06-11-2019 influenza virus vaccine, unspecified formulation Javier Drapergles Work Phone: [facility] 06-22-2018 influenza virus vaccine, unspecified formulation Paul Gomez [facility] 06-22-2018 influenza, seasonal, injectable Eva Ruttino Other [facility] [employer] Other 06-11-2018 influenza virus vaccine, unspecified formulation Javier Drapergles Work Phone: [facility] 600 DO Work Phone: 08-11-2017 pneumococcal conjuga te vaccine, 13 valent Javier M Usman Work Phone: [facility] 600 DO Work Phone: 07-11-2017 influenza, high dose seasonal, preservative-free Javier M Usman Work Phone: [facility] 600 DO Work Phone: 07-09-2017 influenza, seasonal, injectable Eva Salcedo Other [facility] Other 07-09-2017 influenza virus vaccine, unspecified formulation Paul Mourany [facility] 08-15-2016 pneumococcal conjuga te vaccine, 13 valent Eva Salcedo Other [facility] 07-11-2016 influenza virus vaccine, unspecified formulation Javier M Usman Work Phone: [place] [address] DO Work Phone: 11-11-2015 influenza virus vaccine, unspecified formulation Paul Mourany [facility] 11-11-2015 influenza, injectabl e, quadrivalent, preservative free Javier M Usman Work Phone: [facility] 600 DO Work Phone: 11-11-2015 influenza, injectabl e, quadrivalent, contains preservative Eva Salcedo Other [facility] Other 09-04-2015 influenza virus vaccine, unspecified formulation Paul Mourany [facility] 09-04-2015 influenza, injectabl e, quadrivalent, preservative free Javier M Usman Work Phone: [place] [address] DO Work Phone: 09-04-2015 influenza, injectabl e, quadrivalent, contains preservative Eva Salcedo Other [facility] Other 07-11-2015 influenza virus vaccine, unspecified formulation Javier Mary Work Phone: -[facility] 600 DO Work Phone: Payers Date Payer Category Payer Private Health Insurance [id number] 2021 Medicare [id number] 2. [id number] 2021 Self-pay 1957 Medicare [id number] 1940 Unknown [id number] 2.16.84 0.1.919405.3.579.2.593 1942 Unknown [id number] 2.16.84 0.1.053418.3.579.2.593 1942 Unknown [id number] 2.16.84 0.1.776825.3.579.2.593 1942 Unknown [id number] 2.16.8 40.1.343792.3.579.2.727 1942 Unknown [id number] 2.16.8 40.1.936458.3.579.2.727 1942 Unknown [id number] 2.16.8 40.1.472429.3.579.2.727 1942 Unknown [id number] 2.16.8 40.1.381003.3.579.2.727 1942 Unknown [id number] 2.16.8 40.1.870970.3.579.2.727 1942 Unknown [id number] 2.16.8 40.1.586874.3.579.2.727 1942 Unknown [id number] 2.16.8 40.1.131409.3.579.2.727 1942 Unknown [id number] 2.16.8 40.1.051478.3.579.2.727 1942 Unknown [id number] 2.16.8 40.1.777162.3.579.2.727 1942 Unknown [id number] 2.16.8 40.1.419481.3.579.2.727 1942 Unknown [id number] 2.16.8 40.1.063882.3.579.2.727 1942 Unknown [id number] 2.16.8 40.1.841172.3.579.2.727 1942 Unknown [id number] 2.16.8 40.1.475865.3.579.2.727 1942 Unknown [id number] 2.16.8 40.1.553628.3.579.2.727 1942 Unknown [id number] 2.16.8 40.1.000093.3.579.2.727 1942 Unknown [id number] 2.16.8 40.1.089076.3.579.2.727 1942 Unknown [id number] 2.16. 840.1.225756.3.579.2.356 1942 Unknown [id number] 2.16. 840.1.449144.3.579.2.356 1942 Unknown [id number] 2.16. 840.1.109752.3.579.2.356 Medicare [id number] 2.1 6.840.1.103774.19 Unknown Unknown [id number] 2.16.8 40.1.917664.3.579.2.531 Social History Date Type Detail Facility Former smoker Former smoker [address] Work Phone: Comment on above: Quit over 20 years a go.; 1-2 cups coffee brendan y; Start: 04-04-2021 End: 01-04-2023 Tobacco smoking status Ex-smoker (finding) [facility] Sex Assigned At Female [facility] Other Tobacco [facility] Comment on above: denies Tobacco smoking status No Smoking Status Entered [facility] NEGATED: Highlighted row - - [facility] [facility] Work Phone: Functional Status Date Assessment Result Facility 02-17-2023 Functional Status N/A [facility] 01-04-2023 Functional Status N/A [facility] [place] 12-28-2022 Functional Status N/A [facility] 11-12-2022 Functional Status N/A [facility] 05-11-2022 Functional Status N/A [facility] NEGATED: Highlighted row Functional performance Functional status health issues are not documented Disease [facility] Work Phone: Mental Status Date Assessment Result Facility NEGATED: Highlighted row Cognitive function [Interpretation] Cognitive status health issues are not documented Disease [facility] Work Phone: Clinical Notes 08-25-2021 to [...] continue to follow-up with the vascular/vein specialist. [facility] Other 09-18-2023 Evaluation note* Encounter Date Diagnosis Assessment Notes Treatment Notes Treatment Clinical Notes Jun, Essential (primary) hypertension (ICD-10 - I10) [facility] Other 09-11-2023 Evaluation note* Encounter Date Diagnosis Assessment Notes Treatment Notes Treatment Clinical Notes Jun, Hematoma of left lower leg (ICD-10 - S80.12XA) Discussed with patient and son-in-law that I feel we will just simply continue to monitor as hematomas will be reabsorbed slowly by the body. I think we merely keep this well covered, to prevent any further bumping. Call with results. [employer] Other 09-07-2023 NoteEchocardiology Procedure Exam Date/Time Accession # Ordering Echo Transthoracic 06/17/2023 10:09 EDT [id number] Bereket GUILLEN, Jones Complete CPT code 58494 Reason for Exam (Echo Transthoracic Complete) I35.0 Report [facility] [address] [place] [address] Adult Echocardiogram Report Name: [facility] Study Date: 06/17/2023 09:16 AM BP: 148/68 mmHg Patient Location: [facility] HR: 55 : 1940 Gender: Female Height: 64 in Age: 82 yrs Ethnicity: [facility] Weight: 143 lb Reason For Study: [...] Signed by: Ricardo Salamanca MD Transcribed by: SD Technologist: [facility]07-31-2023 Evaluation note* Encounter Date Diagnosis Assessment Notes Treatment Notes Treatment Clinical Notes Apr, Skin tear of right hand without complication, initial encounter (ICD-10 - S61.411A) Patient and son-in-law are given some Vaseline gauze to use. Keep this area clean and dry. Monitor for healing. Call with any change. [employer] Other 07-15-2023 Evaluation + Plan note Diagnostic Tests Pending * Folate Level 04/24/23 * T3 Free 04/24/23 * Vitamin B12 Level 04/24/23 [facility]07-12-2023 Evaluation note* Encounter Date Diagnosis Assessment Notes [...] dose accordingly. They will call with results. [employer] Other 06-13-2023 NoteHOSPITAL REGULATIONS: All Positive and [...] unable to move. She was brought to [facility] where she is found to have [...] this fracture pattern. Kaitlyn Menard Dictated: 03/21/2023 [id number] Transcribed: 03/22/2023 cc:Javier Mary D.O.[facility] on above:Result Comment: Electronically Signed By: Marquise Mesa DO\.br\Date and Time Signed: 03/23/23 06:51 [id number] NoteDAILY PROGRESS NOTE: 03/22/2023 HISTORY: Chani is seen here today for repeat evaluation of her left hemipelvic fractures. She is doing okay, no new complaints, no new symptomatology. Physical therapy did work with her yesterday and ambulated six feet with a front-wheeled walker. She has three steps at home. Recommendation for senior living is made. Her examination here today reveals [...] from the periphery. 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 PCP, DME and insurance discussed. Patient is alert and involved in plan of care. Contact information provided and whiteboard updated. Pt's dtr will transport. Pt has been accepted to [facility], pending precert. No further needs. Ant dc TBD. CRM to follow. Precert came through. Pt will dc to room 603, now [facility]CU.[facility] on above:Result Comment: Electronically Signed By: Luanne Maddox\.br\Date and Time Signed: 03/22/23 12:43 [id number] NotePT evaluation completed with an AM-PAC six [...] continue to follow daily and make appropriate recommendations.[facility]06-11-2023 NoteChief Complaint Watering lawn and slipped on wet grass and fell. Denies feeling illl prior. (L) hip pain. Hit back on head on ground, no LOC. On Eliquis. Able to bear weight, but painful. History of Present Illness [id number] patient is a very pleasant active 82-year-old [...] the bedside suggest that Dr. Cuba the child monitor with whom she had an appointment within [...] and superior pubic ramus fracture. The emergency threshing department supervisor orthopedic service was consulted and the case [...] kyphosis. scoliosis. Extremities: no (more content not included)...[facility] HospitalComment on above:Result Comment: Electronically Signed By: Jag CARVER DO.meme\Date and Time Signed: 03/21/23 03:47 [id number] Note [id number]:127[facility] 02-17-2023 Hospital Discharge instructions Patient [...] and water are not available, use hand radiation officer. ?Change your dressing as told by your [...] to take sponge baths. General instructions Take sxvc-ovj-jokxhck and prescription medicines only as told by [...] dressing. Your wound opens up. Summary Take suqs-lkw-eqlzgzw and prescription medicines only as told by [...] provider. Document Revised: 04/28/2022 Document Reviewed: 04/28/2022 [employer] Patient Education 2022 [employer]. Follow Up Care 01/13/2023 08:38:17 With:Paul Gomez Address: [facility] [place] [id number]- [phone] Business (1) When:02/27/2023 14:24:06 Comments:Call for followup appointment [facility]04-12-2023 Evaluation note* Encounter Date Diagnosis Assessment Notes Treatment Notes Treatment Clinical Notes Jan, Dysfunction of both eustachian tubes (ICD-10 - H69.83) [employer] Other 04-11-2023 Note [id number]:127[facility] 01-13-2023 NoteMicrobiology PROCEDURE: Wound Culture [R1] SOURCE: [...] Locations R1: This test was performed at: [facility], [address] [place] [address], [id number] , , JstbzfZanesville City HospitalComment on above:Performed By: #### [id number], [id number], [id number], [id number] #### [facility] [address] [place] [address] [id number] Hospital Discharge instructions Patient Education 01/11/2023 14:09:30 [...] ?Hypothyroidism. ?Polycystic ovarian syndrome (PCOS). ?Binge-eating disorder. ?[place] syndrome. Taking certain medicines, such as steroids, [...] food choices, such as grocery stores and [employer] markets. What are the signs or symptoms? [...] and how much exercise you get. Take nygh-hdc-ozwdlav and prescription medicines only as told by [...] 11/04/2005 Document Revised: 06/01/2019 Document Reviewed: 06/01/2019 [employer] Patient Education 2019 [employer]. [facility] [place] 03-20-2023 Hospital Discharge instructions Patient Education 12/28/2022 [...] Follow these instructions at home: Medicines Take qsdj-par-uactiwb and prescription medicines only as told by [...] soap and water arenot available, use hand radiation officer. Check your abscess every day for signs [...] 07/07/2006 Document Revised: 01/18/2020 Document Reviewed: 11/10/2018 [employer] Patient Education 2020 [employer]. Follow Up Care 12/28/2022 16:23:36 With:Dae LANDAVERDE Address: [address], [facility] [address] [facility] [address] [place] [address]- Business (1) When:12/31/2022 16:44:46 Comments:Follow-up for evaluation and treatment of breast abscess With:JAVIER MARY Address: [address], [facility] [address] [place] [address]- Business (1) When:Within 3 Day(s) [facility]02-20-2023 Evaluation note* Encounter Date Diagnosis Assessment Notes [...] that she can only really use the hcbc-zeg-bjdwlan Coricidin. Call with results. Nov, Constipation, unspecified constipation type (ICD-10 - K59.00) Lengthy discussion with patient and daughter today that certainly she could try the vrdw-bud-ttplqjq Colace or the rmsx-hwe-bqjoupg MiraLAX, as this is something that they also purchased. I feel she would be best served by trying to take a half a cap every day Nov, Nasal congestion (ICD-10 - R09.81) Dsup-lmn-izgwgaz Coricidin is fine. Patient to call if no improvement seen. [facility] Other 02-20-2023 Evaluation note* Encounter Date Diagnosis Assessment Notes Treatment Notes Treatment Clinical Notes Nov, Pure hypercholestero lemia (ICD-10 - E78.00) Nov, Essential (primary) hypertension (ICD-10 - I10) [facility] Other 02-02-2023 Hospital Discharge instructions Patient Education [...] Follow these instructions at home: Medicines Take wyra-fbw-kdnesnk and prescription medicines only as told by [...] such as antibiotic medicines or antihistamines. Take pdqi-xzu-vrwyqwo and prescription medicines only as told by [...] 07/07/2006 Document Revised: 02/16/2019 Document Reviewed: 02/16/2019 [employer] Patient Education 2020 [employer]. Follow Up Care 11/12/2022 11:41:12 With:JAVIER MARY Address: [facility] [address] [address]- Business (1) When:11/15/2022 13:03:01 [facility]02-02-2023 Evaluation + Plan noteExtracted from: Title:ED Note Author:Clyde Alas PA-C te:11/12/22 Cellulitis (L03.90: Cellulit is, unspecified) Wrist pain (M25.539: Pain in unspecified wrist) Orders: cephalexin, 500 mg = 1 cap(s), Oral, TID, Take one capsule by mouth three times a day for ten days, # 30 cap(s), Refills(s) 0, Pharmacy: [facility], 165, cm, 11/12/22 11:52:00 EST, Height/Length Dosing, 69, kg, 11/12/22 11:52:00 EST, Weight Dosing Splint Application Wrist XR Wrist 3+ Views Right [facility]12-06-2022 Evaluation note* Encounter Date Diagnosis Assessment Notes [...] and understanding. She will call with update. [facility] Other 10-18-2022 Evaluation note* Encounter Date Diagnosis Assessment Notes Treatment Notes Treatment Clinical Notes Jul, Essential (primary) hypertension (ICD-10 - I10) [employer] Other 08-01-2022 Evaluation + Plan noteExtracted from: [...] Right XR Knee Complete 4+ Views Right [facility]08-01-2022 Hospital Discharge instructions Patient Education 05/11/2022 10:39:55 [...] 07/07/2006 Document Revised: 11/23/2019 Document Reviewed: 10/20/2017 [employer] Patient Education 2020 [employer]. 05/11/2022 10:39:55 Simms Cyst Simms Cyst A [...] your health care provider. General instructions Take iqgo-zeo-typfvig and prescription medicines only as told by [...] 09/27/2006 Document Revised: 02/09/2020 Document Reviewed: 02/09/2020 [employer] Patient Education 2020 [employer] Follow Up Care 05/11/2022 08:45:22 With:Marquise Mesa Address: [address] [place] [address]- Business (1) When:05/14/2022 10:10:58 With:JAVIER MARY Address: [address] [address] Business (1) When:Within 3 Day(s) [facility]06-06-2022 Evaluation note* Encounter Date Diagnosis Assessment Notes [...] if they are going to have the bridge painter helper back shortly or if we should send her to the bridge painter helper in [place]. We will contact patient/son-in-law with results. [employer] Other 04-28-2022 Evaluation note* Encounter Date Diagnosis Assessment Notes Treatment Notes Treatment Clinical Notes Jan, Laceration of right lower leg, initial encounter (ICD-10 - S81.811A) Pt to keep clean and dry - no bathing - shower only. [facility] Other 04-24-2022 Hospital Discharge instructions Patient Education [...] and water are not available, use hand radiation officer. ?Change your dressing as told by your [...] antibiotic even if your condition improves. Take bpcr-esl-aufhank and prescription medicines only as told by [...] 07/06/2009 Document Revised: 01/15/2020 Document Reviewed: 04/13/2017 [employer] Patient Education 2020 [employer]. 01/31/2022 22:44:56 Nonsutured Laceration Care Nonsutured Laceration [...] Infection. Slow healing. Supplies needed: Soap. Hand radiation officer. Sterile water or irrigation solution. Bandages (dressings). [...] and water are not available, use hand radiation officer. 2.Remove any dressing as told by your [...] these instructions at home: Take or apply brfb-cth-aculrcn and prescription medicines only as told by [...] 08/25/2007 Document Revised: 01/19/2020 Document Reviewed: 10/17/2018 [employer] Patient Education 2020 [employer]. Follow Up Care 01/31/2022 19:55:48 With:JAVIER USMAN Address[facility] [facility] [address] [place] [address]- Business (1) When:02/03/2022 [facility]03-24-2022 Evaluation note* Encounter Date Diagnosis Assessment Notes Treatment Notes Treatment Clinical Notes Dec, Essential (primary) hypertension (ICD-10 - I10) [facility] Other 12-06-2021 Evaluation note* Encounter Date Diagnosis [...] Ortho if she would like definitive review/removal? [employer] Other 11-15-2021 Evaluation note* Encounter Date Diagnosis [...] or call when she decides on treatment. [employer] Other Evaluation + Plan note No data available for this section [facility] Future Appointments Appointment Date:01/08/2023 09:15:00 AM Scheduled Provider: Location:.[facility] Appointment Type:MA Diagnostic (FT) Appointment Date:01/11/2023 01:40:00 PM Scheduled Provider:Paul Gomez MD Location:[facility] Appointment Type: Established 15 Future Scheduled Tests Radiology* MA Mamm Diag w/CAD if perf and 3D Robby 01/08/23 [facility] General [facility] [place] Evaluation + Plan note Future Appointments Appointment Date:01/08/2023 09:15:00 AM Scheduled Provider: Location:.[facility] Appointment Type:MA Diagnostic (FT) Appointment Date:01/11/2023 01:40:00 PM Scheduled Provider:Paul Gomez MD Location:[facility] Appointment Type: Established 15 Diagnostic Tests Pending * Wound Culture 01/04/23 Future Scheduled Tests Radiology* MA Mamm Diag w/CAD if perf and 3D Robby 01/08/23 [facility] Future Appointments Appointment Date:01/11/2023 01:40:00 PM Scheduled Provider:Paul Gomez MD Location:[facility] Appointment Type:GS Established 15 [facility] Future Appointments Appointment Date:06/17/2023 09:00:00 AM Scheduled Provider: Location:.[facility]ARDIO Appointment Type:CV Echo (FT) Future Scheduled Tests Radiology* Echo Transthoracic Complete 06/17/23 [facility] noteNo InformationNortClarion Hospital Yeelion Other Evaluation noteNomissouri southern healthcare [facility] Other History general Narrative - Reported* Type [...] above Hospitalization History left hip surgery 06/2019 [employer] Other Hisjbzb general Narrative - [email or web address] Other Hisekgs general Narrative - Reported* Type Description Date [...] 06/2019 Hospitalization History Fracture of Pelvis 03/22 [employer] Other History of Present illness Narrative* Patient [...] and EKG with her and her son -[facility] 600 DO Work Phone: History of Present [...] and EKG with her and her son [facility] 600 DO Work Phone: History of Present [...] repeat her lab work as ordered -[facility] 600 DO Work Phone: History of Present [...] her we will consider repeating her echocardiogram [facility] 600 DO Work Phone: Hospital Discharge instructions No data available for this section [facility] No data available for this section [facility] Summary Purpose Family History Mother Name Dates [...] DATE CREATED AUTHOR AUTHOR'S ORGANIZ ATION 12/05/2020 [facility] DATE CREATED AUTHOR AUTHOR'S ORGANIZ ATION 11/14/2022 [facility] DATE CREATED AUTHOR AUTHOR'S ORGANIZ ATION 06/03/2023 [employer] DATE CREATED AUTHOR AUTHOR'S ORGANIZ ATION 06/18/2023 [facility] DATE CREATED AUTHOR AUTHOR'S ORGANIZ ATION [facility] REASON FOR VISIT (unrecogniz ed section and content) Vascular surgery consultVASC 1 WEEK FOLLOW UP; FF VENOUS DUPLEX BOTH LEGS 08/21/21EKG Result Req6 month Follow up, needs A1C, Pt. states she saw Dr. Norwood in August and he would like Dr. Mary to keep and eye on her left calf areaPatient Update/ EKGEKG Resultsrefill lisinopril, lasixClinical Acute Illnessrefill vit d, amlodipinemed/allergy list [facility]OK[facility] Follow up, Due for Medicare Wellness- BK (patient is ok with medicare wellness), patient did see ENT-- was told nothing is structurally wrong with her ears, still waiting on bridge painter helper appt.. and was wondering if she could [...] content) Personnel Name: JAVIER MARY DO Address: [address] [place] [address]- Name: Ivory Villanueva Personnel Name: JAVIER MARY DO Address: Address: [address] [place] [address]- Name: Ivory Villanueva Personnel Name: JAVIER MARY DO Address: Address: [address] [place] [address] Name: Ivory Villanueva Personnel Name: USMAN DO, JAVIER M Address: Address: [address] [place] [phone]- [place] Name: Ivory Villanueva Personnel Name: USMAN DO, JAVIER M Address: Address: [address] [place] [phone]- [place] Name: Ivory Villanueva Personnel Name: USMAN DO, JAVIER M Address: Address: [address] [place] [address]- [place] Name: Ivory Villanueva Personnel Name: USMAN DO, JAVIER M Address: Address: [address] [place] [address]- [place] Name: Ivory Villanueva Personnel Name: USMAN DO, JAVIER M Address: Address: [address] [place] [address]- [place] Name: Ivory Villanueva Personnel Name: USMAN DO, JAVIER M Address: Address: [address] [place] [address]- [place] Name: Ivory Villanueva Personnel Name: USMAN DO, JAVIER M Address: Address: [address] [place] [address]- [place] Name: Ivory Villanueva Personnel Name: USMAN DO, JAVIER M Address: Address: [address] [place] [address]- [place] Name: Ivory Villanueva Personnel Name: USMAN DO, JAVIER M Address: Address: [address] [place] [address]- [place] Name: Ivory Villanueva Personnel Name: USMAN DO, JAVIER M Address: Address: [address] [place] [address]- [place] Name: Ivory Villanueva Personnel Name: USMAN DO, JAVIER M Address: Address: [address] [place] [address]- [place] Name: Ivory Villanueva FOR RECORDS PERTAINING [...] BE BASED ON THE PRIMARY CLINICAL RECORDS. [employer] [facility]. provides no warranty or guarantee of the accuracy or completeness of information in this document.
== END 2023-10-13 14:16 | disposition home or self-care (01) ==
PROVIDERS: PCP Radiology Diagnostic Radiology; Visit Provider Radiology Diagnostic Radiology
DX: I80.01 Phlebitis and thrombophlebitis of superficial vessels of right lower extremity (principal)
CPT/HCPCS: 93971; G0463

== ENCOUNTER 2023-10-28 14:21 | Outpatient (OUT) | payer MEDICARE, SELFPAY ==
--- OUTSIDE RECORDS SUMMARY | 2023-10-22 12:45 | XMS_ITS | CCD ---
Author Name Unknown Address [address] [place] [address] Organization [facility] Care Team Providers Care Pediatric Associate Name Role Phone DARVIN HUTCHINS Admitting Unavailable [...] Consulting Unavailable Shadi Maryh M Unavailable Unavailable [id number], Basar Unavailable Un available Traboulssi, Mourhaf Unavailable Unavailable zz-Sareyyupoglu, Basar Unavailable Unavailab le Javier Mary M Unavailable Unavailable Unavailable SHADI MARYH M Primary Care Physician Ivory Villanueva Unavailable Unavailable Eva Salcedo Unavailable [...] Ampicillin; Translations: [ampicillin] Drug Allergy anaphylaxis [facility] Repository (1 source) Ciprofloxacin Drug Allergy [facility] Repository (2 sources) Dicyclomine; Translations: [dicyclomine] Drug Allergy [facility] Repository (1 source) Iodine (And Iodine Containting Drugs) Drug allergy (disorder) [facility] Repository (2 sources) traMADol; Translations: [traMADol] Drug Allergy [facility] Repository (20 sources) Erythromycin; Translations: [erythromycin] Drug Allergy Flushing (disorder) [facility] Work Phone: (20 sources) Ampicillin; Translations: [ampicillin] Drug Allergy Blushing, function (observable entity), anaphylaxis [facility] [employer] Other (20 sources) Ciprofloxacin; Translations: [Cipro] Drug Allergy Hallucinations [facility] [employer] Other (18 sources) Acetaminophen / oxyCODONE; Translations: [acetaminophen-o xycodone] Drug Allergy paranoid and hauucinated, Hallucinations, Psychosis [facility] (20 sources) Dicyclomine; Translations: [dicyclomine] Drug Allergy Unknown (qualifier value) [facility] [employer] Other (20 sources) traMADol; Translations: [tramadol] Drug Allergy Hallucinations (finding) [facility] [employer] Other (20 sources) Azithromycin; Translations: [azithromycin] Drug Allergy vomiting [facility] [employer] Other (20 sources) CT Scan dye Propensity to adverse reactions Unknown [facility] [employer] Other (1 source) Ciprofloxacin Drug Allergy hallucinations [facility] [employer] Other (1 source) Dicyclomine Drug Allergy stomach upset [facility] [employer] Other (1 source) traMADol Drug Allergy mental changes [facility] [employer] Other (1 source) Ampicillin Drug Allergy 10-29-19 22 [facility] Repository (1 source) Ciprofloxacin Drug Allergy 10-29-19 [facility] Repository (1 source) Erythromycin Drug Allergy 10-29-19 [facility] Repository (2 sources) Contrast media Allergy to substance (finding) [facility] 600 DO Work Phone: Medications Current Medications [...] Start: 08-20-2018 fluticasone 0. 05 mg/inh Nasal Whitlash 2 spray(s), Nasal, Daily, Refill(s) 0 Start [...] Not-Taking Start: 02-10-2016 fluticasone 0.05 mg/inh Nasal Whitlash (9 sources) Start: 08-20-2018 fluticasone 0. 05 mg/inh Nasal Whitlash 2 spray(s), Nasal, Daily, Refill(s) 0 Start [...] Date: 07/07/19 Status: Ordered Vitamin D (Ergocalciferol) 15299 UNIT (11 sources) take 1 capsule by mouth every we ek Vitamin D (Ergocalciferol) 64768 UNIT 1 capsule Orally weekly for 90 days Active Vitamin D2 50,000 intl units (1.25 mg) oral capsule (14 sources) Start: 04-04-2021 take 1 capsule by mouth every week Vitamin D2 50,000 intl units (1.25 mg) oral capsule International_Unit cap(s), Oral, qWeek, Refills(s) 0 Start Date: 04/04/21 Status: Ordered Start: 04-04-2021 take 1 capsule by mo [facility] once daily Vitamin D2 50,000 intl [...] days, # 30 cap(s), Refills(s) 0, Pharmacy: [facility], 165, cm, 11/12/22 11:52:00 EST, Height/Length Dosing, 69, kg, 11/12/22 11:52:00 EST, Weight Dosing Start Date: 11/12/22 Status: Ordered Start: 01-31-2022 take 1 capsule by [facility] four times daily cephalexin 500 mg Cap 500 mg = 1 cap(s), Oral, QID, # 40 cap(s), Refills(s) 0, Pharmacy: [facility] #[facility], 160, cm, 01/31/22 20:02:00 EDT, Height/Length [...] every week Vitamin D (Ergocalciferol) 1.25 MG (84827 UT) Oral Capsule Take 1 capsule by mouth once weekly Quantity: 12 Refills: 0 Ordered: 10-Jul-2021 DO Start : 10-Jul-2021 Active Start: 04-04-2021 take 1 capsule by [facility] once daily Vitamin D2 50,000 intl units (1.25 mg) oral capsule International_Unit cap(s), Oral, Daily, Refills(s) 0 Start Date: 04/04/21 Status: Ordered take 1 capsule by [facility] every week Vitamin D (Ergocalciferol) 79638 UNIT 1 capsule Orally weekly for 90 days Active ferrous fumarate 325 mg oral tablet (2 sources) Ferrous Fumarate 325 (106 Fe) MG TABS TAKE 1 TABLET DAILY DIRECTED. 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] Onset: 12-30-19 Episodic Other aftercare (1 source) Other supervisor intermediates (current) drug therapy; Translations: [OTH ENVIRONMENTAL SCIENCE TECHNICIAN CURRENT DRUG THERAPY] Onset: 12-30-19 Episodic Other aftercare (1 source) retirement (current) use of aspirin; Translations: [MCFP CURRENT USE OF ASPIRIN] Onset: 12-30-19 Episodic Other aftercare (1 source) Long-term current use of anticoagulant; 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] Onset: 01-12-20 Episodic [...] 09-20-2023 HbA1c (Bld) [Mass fraction] 5.5 % [facility] [employer] Other HbA1c (Bld) [Mass fraction]o n 09-20-2023 A1C HEMOGLOBIN [facility] [employer] Other Consent for Treatmenton Consent for Treatment [id number] #1.00CD:127 Normal [facility] No Panel Informationon 06-17 Normal -[facility] [address] [place] Work Phone: John 06-05-2023 ALT No additional P-5'-P [Catalytic activity/Vol] 16 Int._Unit/L Normal 6-46 [facility] Comment on above: Performed By: #### 1 [id number], 9191280, 4577638, 0482687, 6911923 #### [facility] [address] [place] [address] Ryder 06-05-2023 AST [Catalytic activity/Vol] 19 Int._Unit/L Normal 5-43 [facility] Comment on above: Performed By: #### 1 [id number], 7086641, 7883383, 1702883, 3452541 #### [facility] [address] [place] [address] BMPon 06-05-2023 Anion gap [Moles/Vol] 12 mmol/L Normal 6-16 [facility] Comment on above: Performed By: #### 1 8117330, 8675331, 5875153, 8388226, 1676509 #### [facility] [address] [place] [address] Calcium [Mass/Vol] 9.7 mg/dL Normal 8.9-11.1 [facility] Comment on above: Performed By: #### 1 2637148, 1181772, 5004744, 0886381, 8124068 #### [facility] [address] [place] [address] Chloride [Moles/Vol] 105 mmol/L Normal 101-111 [facility] Comment on above: Performed By: #### 1 8980004, 6109679, 3951705, 9589117, 2963476 #### [facility] [address] [place] [address] CO2 [Moles/Vol] 27 mmol/L Normal 21-31 [facility] Comment on above: Performed By: #### 1 4558094, 9446391, 5502257, 6189848, 5668942 #### [facility] [address] [place] [address] Creatinine [Mass/Vol] 0.9 mg/dL Normal 0.5-1.3 [facility] Comment on above: Performed By: #### 1 0553435, 4006115, 4236549, 4477699, 4044617 #### [facility] [address] [place] [address] Glucose [Mass/Vol] 103 mg/dL Normal 55-199 [facility] Comment on above: Result Comment: If t his glucose result represents a fasting glucose, interpretation should refer to the following reference range: 55-99 mg/dL Performed By: #### 1 9039977, 1543332, 2022851, 8268268, 4334729 #### [facility] [address] [place] [address] Potassium [Moles/Vol] 3.9 mmol/L Normal 3.5-5.3 [facility] Comment on above: Performed By: #### 1 4123847, 4337343, 8175495, 0036839, 2827348 #### [facility] [address] [place] [address] Sodium [Moles/Vol] 140 mmol/L Normal 135-145 [facility] Comment on above: Performed By: #### 1 3027442, 1651727, 6614125, 1648539, 5868214 #### [facility] [address] [place] [address] Urea nitrogen [Mass/Vol] 24 mg/dL High 5-21 [facility] Comment on above: Performed By: #### 1 3065474, 1206427, 0425907, 9680742, 9447766 #### [facility] [address] [place] [address] Urea nitrogen/Creatinine [Mass ratio] 27 No Units High 10-20 [facility] Comment on above: Performed By: #### 1 8916511, 8319671, 2694400, 0822949, 2007613 #### [facility] [address] [place] [address] CHEMISTRYOrdered By: SYSTEM SYSTEM on 06-05-2023 ALT [...] 65 mL/min/1.73 m2 Normal >=59mL/min/1 .73 m2 [facility] Chem S Glucose [Mass/Vol] 103 mg/dL Normal [...] Treatmenton 05-12 Consent for Treatment [id number] #1.00CD:127 Normal [facility] - Chemistry and C hemistry - challengeon 06-05-2023 Cholesterol [Mass/Vol] 76 mg/dL Normal <=129 -[facility] [address] [place] Work Phone: Cholesterol in LDL [Mass/Vol] 9 mg/dL Normal 7-40 -[facility] [address] [place] Work Phone: Laboratory - Chemistry and C hemistry - challengeOrdered By: SYSTEM SYSTEM on 06-05-2023 CO2 [Moles/Vol] 27 mmol/L Normal 21-31 [facility] Marino mack Lipid Panelon 06-05-2023 Cholesterol [Mass/Vol] 170 mg/dL Normal 120-200 [facility] Comment on above: Performed By: #### 1 6557760, 1212119, 3103983, 4705527, 0013580 ####[facility] [address] [place] [address] Cholesterol in HDL [Mass/Vol] 72 mg/dL Invalid Interpretation Code [facility] Comment on above: Result Comment: HDL > or equal to 60 mg/dL: Low cardiovascular risk HDL < 40 mg/dL : High cardiovascular risk Performed By: #### 1 9921330, 1343888, 8394792, 8102369, 0749046 ####[facility] [address] [place] [address] Cholesterol in LDL [Mass/Vol] 76 mg/dL Normal <=129 [facility] Comment on above: Performed By: #### 1 8110250, 5561226, 9668986, 8034355, 4132730 ####[facility] [address] [place] [address] Cholesterol in VLDL [Mass/Vol] 9 mg/dL Normal 7-40 [facility] Comment on above: Performed By: #### 1 4077283, 4931582, 2604647, 3456307, 7645262 ####[facility] [address] [place] [address] Triglyceride [Mass/Vol] 46 mg/dL Normal <=149 [facility] Comment on above: Performed By: #### 1 2581455, 9019509, 4075151, 0824749, 1921154 ####[facility] [address] [place] [address] No Panel Informationon 08-26 -2023 46 mg/dL Normal <=149 [facility] [address] [place] Work Phone: 72 mg/dL [facility] [address] [place] Work Phone: Comment on above: HDL > or equal to 60 mg/dL: Low cardiovascular riskHDL < 40 mg/dL : High cardiovascular risk 170 mg/dL Normal 120-200 [facility] [address] [place] Work Phone: 19 {Int._Unit/L} Normal 5-43 [facility] [address] [place] Work Phone: 16 {Int._Unit/L} Normal 6-46 [facility] [address] [place] Work Phone: 65 {mL/min/1.73_m2} Normal >=59 [facility] [address] [place] Work Phone: Comment on above: Chronic kidney disea se could be indicated at eGFR's of less than 60 mL/min/1.73m2. Kidney failure is indicated at less than 15 mL/min/1.73m2. 12 {mEq/L} Normal 6-16 [facility] [address] [place] Work Phone: 105 mmol/L Normal 101-111 [facility] [address] [place] Work Phone: 3.9 mmol/L Normal 3.5-5.3 [facility] [address] [place] Work Phone: 140 mmol/L Normal 135-145 [facility] [address] [place] Work Phone: 9.7 mg/dL Normal 8.9-11.1 [facility] [address] [place] Work Phone: 27 {No_Units} above high threshold 10-20 [facility] [address] [place] Work Phone: 0.9 mg/dL Normal 0.5-1.3 [facility] [place] Work Phone: 24 mg/dL above high threshold 5-21 [facility] [place] Work Phone: 103 mg/dL Normal 55-199 [facility] [address] [place] Work Phone: Comment on above: If this glucose resu lt represents a fasting glucose, interpretation should refer to the following reference range: 55-99 mg/dL Physician Orderon 06-05-2023 Physician Order [id number] #1.00CD:127 Normal [facility] eGFRon 06-05-2023 GFR/1.73 sq M.predicted among non-blacks MDRD (S/P/Bld) [Vol rate/Area] 65 mL/min/1.73 m2 Normal >=59 [facility] Comment on above: Order Comment: Order added by Discern Expert. Result Comment: Senior Managing Director karl kidney disease could be indicated at eGFR's of less than 60 mL/min/1.73m2. Kidney failure is indicated at less than 15 mL/min/1.73m2. Performed By: #### 1 [id number], 8541120, 5204788, 3778638, 6297685 #### [facility] [address] [place] [address] Office Visit (Cardiology)on 06-02-2023 Follow-up visit Diagnoses/Problems [...] Past Med (more content not included)... Normal [email or web address] Physician Orderon 06-02-2023 Physician Order [id number] #1.00CD:127 Normal [facility] Tobacco Screening.on 023 Adult depression screening assessment No [facility] [address] [place] Work Phone: Fall risk assessment b) One or more fall s in the last year [facility] [address] [place] Work Phone: Tobacco use status CPHS b) No [facility] 600 DO Work Phone: Folateon 04-26-2023 Folate [Mass/Vol] ng/mL Normal >=6.7 [facility] Comment on above: Performed By: #### 1 7582233, 1191538, 1100153, 5930687 #### [facility] [address] [place] [address] Vit B12on 04-26-2023 Cobalamin (Vitamin B12) [Mass/Vol] 474 pg/mL Normal 50-1500 [facility] Comment on above: Performed By: #### 1 1619450, 2584248, 6150970, 3485017 #### [facility] [address] [place] [address] T3 Freeon 04-25-2023 Free T3 [Mass/Vol] 2.5 pg/mL Invalid Interpretation Code 2.0-4.4 [facility] Comment on above: Result Comment: Perf ormed at: [facility] [address] [id number] PhD Vj Kaplan Performed By: #### 1 4260548, 6481342, 3103373, 3959068 #### [facility] [address] [place] [address] CHEMISTRYOrdered By: SYSTEM SYSTEM on 04-24-2023 25-hydroxyvitamin D3 [Mass/Vol] 50.8 ng/mL Normal 30.0 - 100.0 ng/mL [facility] Remisol Free T4 [Mass/Vol] 0.71 ng/dL Normal 0.58 - 1. 64 ng/dL [facility] Remisol TSH Qn 3.36 m[IU]/L Normal 0.34 - 5.60 mcIU/mL [facility] Remisol Consent for Treatmenton 04-10 Consent for Treatment [id number] #1.00CD:127 Normal [facility] Free T4on 04-24-2023 Free T4 [Mass/Vol] 0.71 ng/dL Normal 0.58-1.64 [facility] Comment on above: Performed By: #### 1 7213101, 1710313, 4946033, 9664627 #### [facility] [address] [place] [address] Physician Orderon 04-24-2023 Physician Order [id number] 6#1.00CD:127 Normal [facility] TSHon 04-24-2023 TSH Qn 3.36 m[IU]/L Normal 0.34-5.60 [facility] Comment on above: Performed By: #### 1 9748069, 9324308, 9439249, 0716156 #### [facility] [address] [place] [address] Vitamin D 25 Hydroxyon 04-24 25-hydroxyvitamin D3 [Mass/Vol] 50.8 ng/mL Normal 30.0-100.0 [facility] Comment on above: Result Comment: Vit panda D deficiency has been defined as a level of serum 25-OH vitamin D less than 20 ng/mL (1,2) by the [place] of Medicine and an Endocrine Society practice guideline. The Endocrine Society further defined vitamin D insufficiency as a level between 21 and 29 ng/mL (2). 1. IOM ([place] of [employer]). 2010. Dietary reference intakes for calcium and D. [place]: The National Academies Press. 2. Patrick MF, Jennifer NC, Dustin HWANG, et al. Evaluation, treatment, and prevention of vitamin D deficiency: an Endocrine Society clinical practice guideline. JCEM. 2011 Apr; 96 (7):1911-30. Performed By: #### 1 7545472, 8638088, 9942018, 5844360, 1882658 #### [facility] [address] [place] [address] [facility] Recordson 04-07 [facility] Records [id number]#1.00CD:127 Normal [facility] Family Medicine Office/Clini c Noteon 04-02-2023 Family Medicine Office/Clinic Note Chief Complaint TCU Discharge History of Present Illness Patient is being seen today for a discharge visit. TCU ADMIT from [facility] 03/20 - Fell while watering yard, unable [...] appropriate mood and affect. Assessment/Plan Home Health Fvhe-ay-Jopw Encounter Type: Medicare Reason for Ybxl-no-Nrkm (Diagnosis): DISCHARGE DIAGNOSIS Encounter Detail I certify that I conducted and documented that a zvnn-wq-xioc (F2F) encounter with the consumer occurred within the 90 days prior to the home health services start of care date, or within 30 days following the start of care date (inclusive of the start of care date), preceding the certification of medical necessity. 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 a. Home health services are medically necessary for this patient, including either intermittent halfway and/or therapy, AND b. The patient cannot [...] q12hr Tyl (more content not included)... 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 Anesthesia Quarter percent Marcaine with epinephrine [...] was put in ALL capital letters Normal [facility] Comment on above: Result Comment: Elec tronically Signed By: Patricia GUILLEN, Paul Rausch.meme\Date and Time Signed: 03/25/23 16:42 EDT Family Medicine Office/Clini c Noteon 03-24-2023 Family Medicine Office/Clinic Note History of Present Illness TCU ADMIT from [facility] 03/20 Fell while watering yard, unable to [...] capsule, Oral, qWeek, Investigating: not rec'd for intermediate use Allergies traMADol (Hallucinations) Percocet 5/325 (paranoid [...] virus vacci (more content not included)... Normal [facility] Comment on above: Result Comment: Elec tronically Signed By: MG GUILLEN, Aaron\.br\Date and Time Signed: 03/23/23 22:28 EDT Discharge Instructionson Discharge Instructions [id number]#1.00CD:127 Normal [facility] Discharge Note-Nursingon Discharge Note-Nursing DARWIN HEART [...] capsule) fluticasone nasal (fluticasone 0.05 mg/inh Nasal Whitlash) furosemide (furosemide 40 mg Tab) lisinopril (lisinopril [...] Test Results None Pharmacy Information [facility] New Follow Up Appointments after Discharge Follow Up with JAVIER MARY When: In 0 days Where: [address] [place] [address]- Business (1) Medications What How Much When [...] fluticasone nasal (fluticasone 0.05 mg/ inh Nasal Whitlash) 2 Sprays Nasal Inhalation Every day Unchanged [...] Mixed hyperlipidemia (more content not included)... Normal [facility] Inpatient Clinical Summaryon 03-22-2023 Inpatient Clinical Summary [address] [address] Clinical Summary Person Information: Name: DARWIN HEART Age: 82 Years : 1940 Sex: Female PCP: JAVIER MARY DO Marital Status: Race: White Ethnicity: Non- or Language: Ethiopian Visit Id: Visit Reason: Hip pain-swelling; Fall; FRACTURE OF INFERIOR PUBIC RAMUS, HIP PAIN, FRACTURE OF SUPERIOR PUBIC RAMUS Speciality: Acuity: Enc Type: Inpatient Med Service: Medical Arrival: 03/20/2023 20:01:12 Discharge: Dispo Type: Admitted as IP to this Hosp Address: [address] [place] [address] [address] [place] [id number] Provider Notes: Diagnosis: 1:Fracture of inferior pubic [...] week. fluticasone nasal (fluticasone 0.05 mg/inh Nasal Whitlash) 2 Sprays Nasal Inhalation every day. furosemide (furosemide 40 mg Tab) 1 Tablets By Mouth every day. lisinopril (lisinopril 20 mg Tab) 1 Tablets By Mouth every day. metoprolol (Metoprolol tartrate 25 mg Tab) 1 Tablets By Mouth 2 times a day. Care Team Members: Attending Physician: Jag CARVER DO Consulting Physician: Marquise Mesa DO Referring Physician: Follow up: Patient Education Information: Normal [facility] Inpatient Patient Summaryon 03-22-2023 Inpatient Patient [...] capsule) fluticasone nasal (fluticasone 0.05 mg/inh Nasal Whitlash) furosemide (furosemide 40 mg Tab) lisinopril (lisinopril [...] Test Results None Pharmacy Information [facility] New Follow Up Appointments after Discharge Follow Up with JAVIER MARY When: In 0 days Where: [address] [place] [address]- Business (1) Medications What How Much When [...] fluticasone nasal (fluticasone 0.05 mg/ inh Nasal Whitlash) 2 Sprays Nasal Inhalation Every day Unchanged [...] Mixed hyperlipidemia (more content not included)... Normal [facility] Inpatient Patient Summary [place] [address] Patient Discharge Instructions PERSON INFORMATION Name: DARWIN [...] Dose: fluticasone nasal (fluticasone 0.05 mg/inh Nasal Whitlash) 2 Sprays Nasal Inhalation every day. Last [...] week. fluticasone nasal (fluticasone 0.05 mg/inh Nasal Whitlash) 2 Sprays Nasal Inhalation every day. furosemide (furosemide 40 mg Tab) 1 Tablets By Mouth every day. lisinopril (lisinopril 20 mg Tab) 1 Tablets By Mout (more content not included)... Normal [facility] Message from Medicareon 03-11 Message from Medicare [id number] 1#1.00CD:127 [facility] Monitor Recordon 03-22-2023 Monitor Record [id number]#1.00CD:127 Normal [facility] Monitor Record [id number]#1.00CD:127 Normal [facility] Monitor Record [id number] 8#1.00CD:127 Normal [facility] Monitor Record [id number] 2#1.00CD:127 Normal [facility] Progress Note-Physicianon Progress Note-Physician Basic Information [...] artery disease (I25.10: Atherosclerotic heart disease of [place] coronary artery without angina pectoris) No chest [...] obtained. Bipola (more content not included)... Normal [facility] Comment on above: Result Comment: Elec tronically Signed By: TWIN GUILLEN, Silvia\.br\Date and Time Signed: 03/22/23 11:46 EDT Transfer Documentson 023 Transfer Documents [id number] 8#1.00CD:127 Normal [facility] ABO/Rhon 03-21-2023 ABO/Rh Positive Invalid Interpretation Code [facility] Comment on above: Performed By: #### 1 [id number], 9886136, 5742926, 3632264 #### [facility] [address] [place] [address] ABO/Rh History Checkon 03-21 ABO/Rh History Check Verified Hx Blood Type Normal [facility] Comment on above: Performed By: #### 1 2606913, 3087972, 7595008, 6044397 #### [facility] [address] [place] [address] ABSCon 03-21-2023 ABSC Gel Interp Negative Normal [facility] Comment on above: Performed By: #### 1 4791869, 6283427, 7709283, 2700375 #### [facility] [address] [place] [address] 90654 Auto Diffon 03-21-2023 Basophils/100 WBC (Bld) 0.8 % Normal 0.0-2.0 [facility] Comment on above: Order Comment: Order Added by Discern Expert. Performed By: #### 1 4362037, 3253388, 7101873, 8435791 #### [facility] [address] [place] [address] 78[address] Basophils/Leukocytes Auto (Bld) [Pure # fraction] 0.0 E9/L Normal 0.0-0.2 [facility] Comment on above: Order Comment: Order Added by Discern Expert. Performed By: #### 1 7780389, 7898481, 4523198, 0031066 #### [facility] [address] [place] [address] Eosinophils/100 WBC (Bld) 1.6 % Normal 0.0-8.0 [facility] Comment on above: Order Comment: Order Added by Discern Expert. Performed By: #### 1 5729581, 9596065, 7449897, 4950518 #### [facility] [address] [place] [address] 47392 Eosinophils/Leukocyte s Auto (Bld) [Pure # fraction] 0.1 E9/L Normal 0.0-0.5 [facility] Comment on above: Order Comment: Order Added by Discern Expert. Performed By: #### 1 9219087, 2174565, 6536092, 4982910 #### [facility] [address] [place] [address] 23705 Lymphocytes/100 WBC (Bld) 22.4 % Normal 14.0-50.0 [facility] Comment on above: Order Comment: Order Added by Discern Expert. Performed By: #### 1 9722040, 0573855, 9356893, 4991114 #### [facility] [address] [place] [address] 34778 Lymphocytes/Leukocyte s Auto (Bld) [Pure # fraction] 1.2 E9/L Normal 1.0-4.0 [facility] Comment on above: Order Comment: Order Added by Discern Expert. Performed By: #### 1 5735624, 6342525, 2172229, 1106137 #### [facility] [address] [place] [address] 49918 Monocytes/100 WBC (Bld) 9.3 % Normal 4.0-14.0 [facility] Comment on above: Order Comment: Order Added by Discern Expert. Performed By: #### 1 9210887, 4296871, 6293668, 1708102 #### [facility] [address] [place] [address] 50535 Monocytes/Leukocytes Auto (Bld) [Pure # fraction] 0.5 E9/L Normal 0.2-1.0 [facility] Comment on above: Order Comment: Order Added by Discern Expert. Performed By: #### 1 2854561, 6612403, 6584171, 4075430 #### [facility] [address] [place] [address] 69227 Neutrophils/100 WBC (Bld) 65.9 % Normal 36.0-75.0 [facility] Comment on above: Order Comment: Order Added by Discern Expert. Performed By: #### 1 2104673, 2575057, 9429979, 7697645 #### [facility] [address] [place] [address] 92305 Neutrophils/Leukocyte s Auto (Bld) [Pure # fraction] 3.5 E9/L Normal 2.0-7.5 [facility] Comment on above: Order Comment: Order Added by Discern Expert. Performed By: #### 1 3266507, 1963240, 0327653, 8395931 #### [facility] [address] [place] [address] 27517 BMPon 03-21-2023 Anion gap [Moles/Vol] 7 mmol/L Normal 6-16 [facility] Comment on above: Performed By: #### 1 9599693, 6347254, 1608925, 8098638 #### [facility] [address] [place] [address] Calcium [Mass/Vol] 9.4 mg/dL Normal 8.9-11.1 [facility] Comment on above: Performed By: #### 1 1941929, 1107253, 9374437, 4145735 #### [facility] [address] [place] [address] Chloride [Moles/Vol] 111 mmol/L Normal 101-111 [facility] Comment on above: Performed By: #### 1 3714584, 8394139, 5163521, 1020502 #### [facility] [address] [place] [address] CO2 [Moles/Vol] 28 mmol/L Normal 21-31 [facility] Comment on above: Performed By: #### 1 0801477, 9881884, 6428997, 4084377 #### [facility] [address] [place] [address] Creatinine [Mass/Vol] 0.8 mg/dL Normal 0.5-1.3 [facility] Comment on above: Performed By: #### 1 3964070, 5999925, 0243118, 5542540 #### [facility] [address] [place] [address] Glucose [Mass/Vol] 112 mg/dL Normal 55-199 [facility] Comment on above: Result Comment: If t his glucose result represents a fasting glucose, interpretation should refer to the following reference range: 55-99 mg/dL Performed By: #### 1 9872045, 2726837, 9681840, 4833248 #### [facility] [address] [place] [address] Potassium [Moles/Vol] 3.6 mmol/L Normal 3.5-5.3 [facility] Comment on above: Performed By: #### 1 6109885, 3339127, 5122610, 3280991 #### [facility] [address] [place] [address] Sodium [Moles/Vol] 142 mmol/L Normal 135-145 [facility] Comment on above: Performed By: #### 1 0983702, 5117677, 0668045, 2969500 #### [facility] [address] [place] [address] Urea nitrogen [Mass/Vol] 30 mg/dL High 5-21 [facility] Comment on above: Performed By: #### 1 3439741, 7848472, 4572367, 0012892 #### [facility] [address] [place] [address] Urea nitrogen/Creatinine [Mass ratio] 38 No Units High 10-20 [facility] Comment on above: Performed By: #### 1 2712515, 2258075, 5755235, 0968058 #### [facility] [address] [place], [place] [address] Blood Bank ID#on 03-21-2023 BBID# [id number] Invalid Interpretation Code [facility] Comment on above: Performed By: #### 1 1585753, 6694908, 9014512, 1971342 #### [facility] [address] [place] [address] 08968 CBC w/ Auto Diffon 3 Erythrocyte distribution width (RBC) [Ratio] 13.4 % Normal 10.9-14.2 [facility] Comment on above: Performed By: #### 1 1610419, 0970241, 4394334, 2797305 #### [facility] [address] [place] [address] Hematocrit (Bld) [Volume fraction] 34.0 % Normal 34.0-46.0 [facility] Comment on above: Performed By: #### 1 1750516, 0454247, 8427399, 0511472 #### [facility] [address] [place] [address] Hemoglobin (Bld) [Mass/Vol] 11.6 g/dL Low 12.0-16.0 [facility] Comment on above: Performed By: #### 1 2859034, 9184690, 1964611, 8387877 #### [facility] [address] [place] [address] MCH (RBC) [Entitic mass] 30.1 pg Normal 27.0-34.0 [facility] Comment on above: Performed By: #### 1 3069903, 4582977, 2508834, 0247278 #### [facility] [address] [place] [address] 31883 MCHC (RBC) [Mass/Vol] 34.2 g/dL Normal 31.4-36.0 [facility] Comment on above: Performed By: #### 1 1472948, 4417226, 4679285, 5224000 #### [facility] [address] [place] [address] 47675 MCV (RBC) [Entitic vol] 87.9 fL Normal 80.0-100.0 [facility] Comment on above: Performed By: #### 1 2656983, 5850549, 8506136, 6677834 #### [facility] [address] [place] [address] Platelet mean volume (Bld) [Entitic vol] 7.8 fL Normal 6.4-10.8 [facility] Comment on above: Performed By: #### 1 9060283, 1904255, 1404396, 0740296 #### [facility] [address] [place] [address] Platelets (Bld) [#/Vol] 171.0 E9/L Normal 150.0-500.0 [facility] Comment on above: Performed By: #### 1 9173581, 4016834, 7142137, 4906414 #### [facility] [address] [place] [address] 80993 RBC (Bld) [#/Vol] 3.9 E12/L Low 4.3-5.9 [facility] Comment on above: Performed By: #### 1 7313834, 1867160, 5137672, 8467335 #### [facility] [address] [place] [address] WBC corrected for nucl RBC Auto (Bld) [#/Vol] 5.3 E9/L Normal 4.0-11.0 [facility] Comment on above: Performed By: #### 1 5056056, 2305579, 3141625, 9534669 #### [facility] [address] [place] [address] CT Head or Brain w/o Contras ton [...] MD Transcribed by: JOLEEN Technologist: NICK Simmons [facility] CT Pelvis w/o Contraston CT Pelvis [...] Oral contrast amount in ml's: 0 [address] [facility] [address] Spine Cervical w/o Contra ston [...] MD Transcribed by: JOLEEN Technologist: NICK Simmons [facility] ED Clinical Summaryon 2022 ED Clinical Summary [address] [address] ED Clinical Summary Person Information Name: DARWIN [facility] Age: 82 Years : 1940 Sex: Female Language: Ethiopian PCP: JAVIER MARY DO Marital Status: Visit Id: Visit Reason: Hip pain-swelling; Fall; FRACTURE OF INFERIOR PUBIC RAMUS, HIP PAIN, FRACTURE OF SUPERIOR PUBIC RAMUS Speciality: Acuity: 3 Enc Type: Inpatient Med Service: Medical Arrival: 03/20/2023 20:01:12 Discharge: LOS: 000 08:16 Checkin: 03/20/2023 20:01:12 Checkout: 03/21/2023 04:17:19 Dispo Type: Admitted as IP to this [facility] EVENTS: Event Name Event Status Request Date/Time [...] Care Request 03/21/2023 03:58:43 ADDRESS: [place] [id number] [facility] DOC NOTES: MEDICAL INFORMATION: Prescriptions Given: [...] day. fluticasone nasal (fluticasone 0.05 mg/inh Nasal Whitlash) 2 Sprays Nasal Inhalation every day. furosemide [...] 8:Paroxysmal atrial fibrillation; 9:Hypertension; 10:Hyperlipidemia; 11:Anxiety Normal [facility] ED Note-Physicianon 03-21-20 ED Note-Physician Basic [...] and Complexity of Problems Differential Diagnosis: [] [facility] Data External documents reviewed: [] My EKG [...] Screen Automated (more content not included)... Normal [facility] Comment on above: Result Comment: Elec tronically Signed By: Rhys Chowdhury PA-C\.br\Date and Time Signed: 03/21/23 00:16 EDT\.br\Electronically Co-Signed By: Gerardo Hernandez DO\.br\Date and Time Co-Signed: 03/21/23 07:25 EDT ED Patient Education Noteon 03-21-2023 ED Patient Education Note Normal [facility] ED Patient Summaryon 023 ED Patient Summary [place] [address] Patient Discharge Instructions Person Information Name: DARWIN HEART Age: 82 Years Arrival Date: 03/20/2023 20:01:12 Discharge Diagnosis: 1:Fracture of inferior pubic ramus; 2:Fracture of superior pubic ramus; 3:Left hip pain; 4:Anemia; 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 It is important that you follow up with a doctor, nurse practitioner, or physician?s him assistant for ongoing care. If your symptoms [...] opioids can be used to help relieve skgatqrm-xq-mwensh pain and are often prescribed following a [...] care profe (more content not included)... Normal [facility] ED Traumaon 03-21-2023 ED Trauma [id number] 0#1.00CD:127 [facility] Interdisciplinary Note - Jasper e Manageron 03-21-2023 Interdisciplinary Note - [employer] spoke with patient. Patient was previous [...] H/h needs. discussed daughter can transport at de. Discussed PT/OT recommend SNF. discussed local facilities and gave her a list of facilities with ratings. She prefers [facility] and is aware may need nm side and may have a room mate. She is considering [facility] as her 2nd choice but wants to talk with her daughter first. Discussed will need precert from her insurance for SNF. Reviewed Medicare rights, she denies any questions and signs form. gave patient copy of signed form. . [facility] Comment on above: Result Comment: Elec tronically Signed By: Nate CROWLEY, Grisel\.br\Date and Time Signed: 03/21/23 10:39 EDT Interdisciplinary Note - Chiara n 03-21-2023 Interdisciplinary Note - OT Ot [facility] six clicks score 15/24 = SNF. Patient requires assist w/ all LE self care and transfers as this time. Patient is limited w/ attempts at function d/t 1010 pain L hip and low back area w/ transitional movements. Inpatient OT services to follow daily to progress w/ self care skills and transfers. Normal [facility] Monitor Recordon 03-21-2023 Monitor Record [id number] 0#1.00CD:127 [facility] Monitor Record [id number] 2#1.00CD:127 [facility] Monitor Record [id number] 1#1.00CD:127 [facility] Monitor Record [id number] 8#1.00CD:127 Normal [facility] Monitor Record [id number] 6#1.00CD:127 Normal [facility] Monitor Record [id number] 3#1.00CD:127 Normal [facility] Monitor Record [id number] 4#1.00CD:127 Normal [facility] RAD - Preliminary Cat Scan R eporton 03-21-2023 RAD - Preliminary Cat Scan Report [id number] 5#1.00CD:127 Normal [facility] RAD - Preliminary Cat Scan Report [id number] 5#1.00CD:127 Normal [facility] Troponinon 03-21-2023 Troponin I.cardiac [Mass/Vol] 12.00 pg/mL Normal 10.10-27.10 [facility] Comment on above: Result Comment: The 95% CI (Confidence Interval) PPV (Positive Predictive Value) for myocardial infarction in females is 38 pg/mL, in males 51 pg/mL. The results should be used in conjunction with clinical conditions of myocardial infarction. (Access High Sensitivity Troponin I Instructions For Use, Layla [place], May 2018) Performed By: #### 1 3059833, 6840930, 7538980, 1705960, 7090111, 9314332, 6128036, 55598198, 7133290 ####[facility] [address] [place] [address] XR Hip 1 View Left + Pelviso [...] mGy = na DAP = na Normal [facility] eGFRon 03-21-2023 GFR/1.73 sq M.predicted among non-blacks MDRD (S/P/Bld) [Vol rate/Area] 74 mL/min/1.73 m2 Normal >=59 [facility] Comment on above: Order Comment: Order added by Discern Expert. Result Comment: Senior Managing Director karl kidney disease could be indicated at eGFR's of less than 60 mL/min/1.73m2. Kidney failure is indicated at less than 15 mL/min/1.73m2. Performed By: #### 1 6182321, 5196229, 2341295, 0088326 #### [facility] [address] [place] [address] Auto Diffon 03-20-2023 Basophils/100 WBC (Bld) 0.8 % Normal 0.0-2.0 [facility] Comment on above: Order Comment: Order Added by Discern Expert. Performed By: #### 1 9913618, 5535408, 0167271, 3697523, 4027064, 0022820, 3551831, 92759040, 0353350 ####[facility] [address] [place] [address] Basophils/Leukocytes Auto (Bld) [Pure # fraction] 0.1 E9/L Normal 0.0-0.2 [facility] Comment on above: Order Comment: Order Added by Discern Expert. Performed By: #### 1 5123399, 9656599, 7410792, 2992697, 5508030, 8453761, 5103663, 14473350, 3875531 ####[place] [address] [place] [address] Eosinophils/100 WBC (Bld) 1.5 % Normal 0.0-8.0 [facility] Comment on above: Order Comment: Order Added by Discern Expert. Performed By: #### 1 4705631, 5941292, 2842839, 6831176, 7992480, 6029598, 3395302, 82836109, 1482288 ####[address] [address] Eosinophils/Leukocyte s Auto (Bld) [Pure # fraction] 0.1 E9/L Normal 0.0-0.5 [facility] Comment on above: Order Comment: Order Added by Discern Expert. Performed By: #### 1 7188810, 4128421, 8806788, 7071309, 8592047, 0160247, 6098084, 67860310, 4499336 ####[address] [address] Lymphocytes/100 WBC (Bld) 24.3 % Normal 14.0-50.0 [facility] Comment on above: Order Comment: Order Added by Wayne Expert. Performed By: #### 1 2737650, 4746608, 5723284, 8629999, 3990586, 3624705, 5383555, 09198961, 1471249 ####[address] [address] Lymphocytes/Leukocyte s Auto (Bld) [Pure # fraction] 1.7 E9/L Normal 1.0-4.0 [facility] Comment on above: Order Comment: Order Added by Discern Expert. Performed By: #### 1 8999904, 1463776, 6119396, 1959740, 6143468, 0806948, 4596461, 02615084, 9266368 ####[address] [address] Monocytes/100 WBC (Bld) 10.3 % Normal 4.0-14.0 [facility] Comment on above: Order Comment: Order Added by Discern Expert. Performed By: #### 1 9401530, 2643422, 9366863, 3738707, 0665476, 4461145, 1677944, 37813972, 8865367 ####[facility] [address] [place] [address] Monocytes/Leukocytes Auto (Bld) [Pure # fraction] 0.7 E9/L Normal 0.2-1.0 [facility] Comment on above: Order Comment: Order Added by Discern Expert. Performed By: #### 1 9702296, 2182810, 7704083, 9914675, 5705092, 8944611, 0751422, 90419451, 4366119 ####[facility] [address] [place] [address] Neutrophils/100 WBC (Bld) 63.1 % Normal 36.0-75.0 [facility] Comment on above: Order Comment: Order Added by Discern Expert. Performed By: #### 1 1965518, 1785548, 4072482, 8329068, 1628510, 6112809, 9623915, 13467980, 6715525 ####[facility] [address] [place] [address] Neutrophils/Leukocyte s Auto (Bld) [Pure # fraction] 4.5 E9/L Normal 2.0-7.5 [facility] Comment on above: Order Comment: Order Added by Discern Expert. Performed By: #### 1 5381215, 7852241, 7806569, 6374117, 8741758, 1754510, 7221072, 40263504, 2761972 ####[facility] [address] [place] [address] BMPon 03-20-2023 Creatinine [Mass/Vol] 1.1 mg/dL Normal 0.5-1.3 [facility] Comment on above: Performed By: #### 1 7899184, 5254647, 0603898, 7789972, 1159672, 9891447, 6570664, 93372788, 0725681 ####[facility] [address] [place] [address] Urea nitrogen [Mass/Vol] 40 mg/dL High 5-21 [facility] Comment on above: Performed By: #### 1 2503990, 4288128, 2204246, 0042704, 5682961, 6306329, 7032706, 41495968, 1640902 ####[facility] [address] [place] [address] Urea nitrogen/Creatinine [Mass ratio] 36 No Units High 10-20 [facility] Comment on above: Performed By: #### 1 4951892, 7960527, 7023411, 0172195, 4688426, 2248659, 6009591, 03501227, 5943078 ####[facility] [address] [place] [address] Anion gap [Moles/Vol] 11 mmol/L Normal 6-16 [facility] Comment on above: Performed By: #### 1 0989044, 8729106, 6209499, 3446614, 5395815, 7568236, 0185419, 70265869, 1802728 ####[facility] [address] [place] [address] Calcium [Mass/Vol] 9.6 mg/dL Normal 8.9-11.1 [facility] Comment on above: Performed By: #### 1 5825862, 4188439, 0812954, 4281593, 4473467, 3132176, 9582718, 76879977, 2661784 ####[facility] [address] [place] [address] Chloride [Moles/Vol] 106 mmol/L Normal 101-111 [facility] Comment on above: Performed By: #### 1 9745702, 8941946, 5049933, 6495242, 7931844, 6506455, 9712618, 34168992, 4794677 ####[facility] [address] [place] [address] CO2 [Moles/Vol] 29 mmol/L Normal 21-31 [facility] Comment on above: Performed By: #### 1 0260969, 9374182, 1252852, 2340160, 8329208, 6452154, 7914094, 71643410, 3963813 ####[facility] [address] [place] [address] Glucose [Mass/Vol] 104 mg/dL Normal 55-199 [facility] Comment on above: Result Comment: If t his glucose result represents a fasting glucose, interpretation should refer to the following reference range: 55-99 mg/dL Performed By: #### 1 9083132, 3119560, 6250771, 0933753, 8139643, 8896987, 0503158, 67065058, 0979430 ####[facility] [address] [place] [address] Potassium [Moles/Vol] 3.7 mmol/L Normal 3.5-5.3 [facility] Comment on above: Performed By: #### 1 6274249, 5011326, 7193164, 7132859, 6031927, 4827825, 5134895, 80627466, 0542814 ####[facility] [address] [place] [address] Sodium [Moles/Vol] 142 mmol/L Normal 135-145 [facility] Comment on above: Performed By: #### 1 2096694, 3319990, 9937149, 5539640, 7983311, 4539686, 9490966, 63972223, 8969083 ####[facility] [address] [place] [address] CBC w/ Auto Diffon 3 Erythrocyte distribution width (RBC) [Ratio] 13.4 % Normal 10.9-14.2 [facility] Comment on above: Performed By: #### 1 6387794, 8295405, 4728197, 5897662, 1084466, 6813752, 9817430, 44361386, 6593493 ####[facility] [address] [place] [address] Hematocrit (Bld) [Volume fraction] 35.0 % Normal 34.0-46.0 [facility] Comment on above: Performed By: #### 1 6060684, 3313531, 6656249, 9826559, 9052853, 0360898, 9848190, 10665965, 3181932 ####[place] [address] [place] [address] Hemoglobin (Bld) [Mass/Vol] 11.8 g/dL Low 12.0-16.0 [facility] Comment on above: Performed By: #### 1 3467830, 3858542, 8868165, 6174793, 2651469, 0268207, 2398311, 94915990, 5383494 ####[place] [address] MCH (RBC) [Entitic mass] 29.8 pg Normal 27.0-34.0 [facility] Comment on above: Performed By: #### 1 0798901, 2735695, 2346765, 6046334, 5701178, 6538659, 4517591, 55096006, 7168746 ####[place] [address] MCHC (RBC) [Mass/Vol] 33.6 g/dL Normal 31.4-36.0 [facility] Comment on above: Performed By: #### 1 2232037, 8467261, 5846120, 1836238, 9149944, 7638395, 4600807, 01957619, 5890997 ####[place] [address] MCV (RBC) [Entitic vol] 88.7 fL Normal 80.0-100.0 [facility] Comment on above: Performed By: #### 1 9299645, 3832878, 9724472, 5216741, 7902092, 8880437, 1086965, 44015853, 4707756 ####[address] [address] Platelet mean volume (Bld) [Entitic vol] 8.5 fL Normal 6.4-10.8 [facility] Comment on above: Performed By: #### 1 0855921, 5026936, 7812010, 9519566, 3828194, 8560125, 6555822, 91046887, 0612351 ####[facility] [address] [place] [address] Platelets (Bld) [#/Vol] 185.0 E9/L Normal 150.0-500.0 [facility] Comment on above: Performed By: #### 1 9212499, 4678610, 2615010, 8230570, 3517684, 7724322, 3048158, 90033664, 4472891 ####[facility] [address] [place] [address] RBC (Bld) [#/Vol] 4.0 E12/L Low 4.3-5.9 [facility] Comment on above: Performed By: #### 1 4696966, 1144571, 7832752, 1546459, 0154943, 9219394, 4346013, 83095740, 4109670 ####[facility] [address] [place] [address] WBC corrected for nucl RBC Auto (Bld) [#/Vol] 7.1 E9/L Normal 4.0-11.0 [facility] Comment on above: Performed By: #### 1 3643012, 4257161, 1603469, 2279802, 1507847, 0152106, 0198016, 92798672, 7718314 ####[facility] [address] [place] [address] Consent for Treatmenton 03-11 Consent for Treatment [id number]# 1.00CD:127 Normal [facility] Ethanolon 03-20-2023 Ethanol [Mass/Vol] mg/dL Normal <=7 [facility] Comment on above: Performed By: #### 1 0699033, 6149843, 5888259, 0929088 #### [facility] [address] [place] [address] Hep Func Panelon 03-20-2023 Albumin [Mass/Vol] 3.8 g/dL Normal 3.3-5.0 [facility] Comment on above: Performed By: #### 1 [id number], 1642984, 5991041, 8725510, 3657737, 0324737, 6679856, 73549746, 8544337 ####[facility] [address] [place] [address] Albumin/Globulin (S) [Mass conc ratio] 1.3 Normal 1.1-2.2 [facility] Comment on above: Performed By: #### 1 1954241, 9090601, 2829720, 8946686, 4731800, 4136433, 3948380, 17723365, 3458460 ####[address] [place] [address] ALP [Catalytic activity/Vol] 76 Int._Unit/L Normal 21-98 [facility] Comment on above: Performed By: #### 1 7406682, 2629637, 5426360, 8738002, 9562860, 2842743, 8830052, 98596818, 3549525 ####[facility] [address] [place] [address] ALT No additional P-5'-P [Catalytic activity/Vol] 18 Int._Unit/L Normal 6-46 [facility] Comment on above: Performed By: #### 1 3624792, 5069479, 1821972, 1205344, 1356609, 4158424, 2350147, 49554355, 7135476 ####[address] [address] AST [Catalytic activity/Vol] 18 Int._Unit/L Normal 5-43 [facility] Comment on above: Performed By: #### 1 9824768, 2184827, 8462689, 1867889, 9508401, 1696673, 9199699, 45755945, 0036092 ####[facility] [address] [place] [address] Bilirubin [Mass/Vol] 0.5 mg/dL Normal 0.0-1.1 [facility] Comment on above: Performed By: #### 1 2536119, 5052853, 1038040, 1152260, 6516419, 2182362, 0557004, 05380279, 6506609 ####[facility] [address] [place] [address] Bilirubin.direct [Mass/Vol] 0.1 mg/dL Normal 0.1-0.4 [facility] Comment on above: Performed By: #### 1 9348843, 4977378, 3598036, 2023328, 2253813, 9726490, 4570818, 09470748, 3576535 ####[address] [address] Bilirubin.indirect [Mass or moles/Vol] 0.4 mg/dL Normal 0.1-0.9 [facility] Comment on above: Performed By: #### 1 0202563, 6268161, 5395308, 9608465, 2260878, 9055467, 6190817, 42261617, 4156586 ####[address] [address] Globulin (S) [Mass/Vol] 2.9 g/dL Normal 1.4-4.0 [facility] Comment on above: Performed By: #### 1 5777839, 0044871, 0676228, 4139451, 6220357, 7352471, 2290560, 62239887, 8946021 ####[address] [address] Protein [Mass/Vol] 6.7 g/dL Normal 6.0-7.8 [facility] Comment on above: Performed By: #### 1 2096900, 7563251, 8710494, 0007449, 7017266, 6154338, 1374262, 45017083, 4300763 ####[address] [place] [address] Lactic Acidon 03-20-2023 Lactate [Mass/Vol] 0.7 mmol/L Normal 0.5-2.2 [facility] Comment on above: Performed By: #### 1 3350658, 3071240, 8034347, 8698113, 3457725, 0095547, 6590930, 80239414, 1770937 ####[facility] [address] [place] [address] Lipase Levelon 03-20-2023 Lipase [Catalytic activity/Vol] 36 U/L Normal 13-58 [facility] Comment on above: Performed By: #### 1 3129868, 5940418, 7765711, 6057552, 7812367, 5340842, 5912970, 04415428, 3655119 ####[facility] [address] [place] [address] PT & PTTon 03-20-2023 aPTT Coag (PPP) [Time] 38.9 second(s) High 25.1-36.5 [facility] Comment on above: Result Comment: Para [...] the same coagulation reagent and instrumentation as [facility]. Currently there are no coagulation studies available worldwide for children to 14 days, and no normal ranges. Heparin therapeutic range (represented by Anti-Factor Xa activity of 0.2 - 0.4 U/mL) corresponds to PTT of 56.6 - 109.0 sec. Performed By: #### 1 1331722, 8022827, 0943883, 8762175, 9795722, 9322918, 5525865, 40059771, 9488856 ####[facility] [address] [place] [address] INR Coag (PPP) [Relative time] 1.3 {INR} Invalid Interpretation Code [facility] Comment on above: Result Comment: INR results are specifically intended to assess patients stabilized on long-term Anticoagulation therapy suggested INR?s ?Less Intensive Anticoagulation? 2.0 ? 3.0 Conventional Range 3.0 ? 4.5 Performed By: #### 1 8659913, 7590846, 3111673, 9312688, 8440082, 1673235, 4713869, 12042007, 3045538 ####[facility] [address] [place] [address] PT Coag (PPP) [Time] 14.9 second(s) High 9.4-12.5 [facility] Comment on above: Result Comment: 15 [...] the same coagulation reagent and instrumentation as [facility]. Currently there are no coagulation studies available worldwide for children to 14 days, and no normal ranges. Performed By: #### 1 4026126, 8455900, 7502171, 9333478, 4079417, 3666015, 9194835, 43386647, 3116758 ####[facility] [address] [place] [address] Pre-Arrival Noteon 3 Pre-Arrival Note Pre-Arrival Summary Name: , Current Date: 03/20/2023 20:01:50 EDT Gender: Date of : Age: Pre-Arrival Type: EMS ETA: 03/20/2023 20:23:00 EDT Primary Care Physician: Presenting Problem: Pre-Arrival User: Lazaro Morales Referring Source: Location: [place] Completion Date/Time: 03/20/2023 19:53:00 [facility] Emergency Department Pre-Hospital Report Form Vital Signs: 141/85 91p 18rr 96%ra Pre-Hospital Report:fall from standing on elequis and asa l leg pain Treatment in Route: Response to Treatment: Misc. Issues: Normal [facility] eGFRon 03-20-2023 GFR/1.73 sq M.predicted among non-blacks MDRD (S/P/Bld) [Vol rate/Area] 51 mL/min/1.73 m2 Low >=59 [facility] Comment on above: Order Comment: Order added by Discern Expert. Result Comment: Senior Managing Director karl kidney disease could be indicated at eGFR's of less than 60 mL/min/1.73m2. Kidney failure is indicated at less than 15 mL/min/1.73m2. Performed By: #### 1 6139388, 4884146, 1639909, 7739402, 9872346, 5268088, 5286118, 60570875, 3438590 ####[facility] [address] [place] [address] Provider Letteron 03-17-2023 Provider Letter March 17, 2023 [facility] [address] [place] [address] : 1940 To Whom It May Concern, Please excuse daughter, Doris Benito, from work 03/01/2023. FMLA Sincerely, Dr. Paul Gomez General Surgery Normal [facility] General Surgery Office/Clini c Noteon 03-08-2023 [...] Nat Diamond to record this visit. SILVER information specialist and provider reviewed before signing. SILVER: [...] mg oral tablet fluticasone 0.05 mg/inh Nasal Whitlash, 2 spray(s), Nasal, Daily furosemide 40 mg [...] Recorded 2023-01-04: TP (more content not included)... [facility] Comment on above: Result Comment: Elec tronically Signed By: Paul Gomez MD\.br\Date and Time Signed: 03/07/23 22:39 EDT\.br\Electronically Co-Signed By: Romi Cee\.br\Date and Time Co-Signed: 03/01/23 17:00 EDT IntraOperative Documentson 0 02-22-2023 IntraOperative Documents [id number]# 1.00CD:127 [facility] Main OR Intraoperative Recor don 02-19-2023 Main OR Intraoperative Record IntraOp Document Type FT Summary Primary Physician: Paul Gomez MD Finalized Date/Time: 02/19/23 07:56:54 Pt. Name: [facility]/Sex: 1940 Female Med Rec #: [id number] Physician: Paul Gomez MD Financial #: [id number] Pt. Type: A Room/Bed: AX10/11 Admit/Disch: 02/17/23 [...] Performed Surgeon - Primary Scrub - Primary Property Management Intern - Primary Time In 02/17/23 13:46:00 02/17/23 [...] and tissue Entry 1 Skin Integrity Intact, Centre, Warm, and Skin Abnormality No Dry Outcomes [...] Pre-Care Text: Implements (more content not included)... [facility] Discharge Instructionson Discharge Instructions [id number] 7#1.00CD:127 [facility] IntraOperative Documentson 0 02-18-2023 IntraOperative Documents [id number] 1#1.00CD:127 [facility] Preoperative Documentson Preoperative Documents [id number] 4#1.00CD:127 [facility] Prescriptions/Work Noteson 0 02-18-2023 Prescriptions/Work Notes [id number] 1#1.00CD:127 [facility] Discharge Instructionson Discharge Instructions ANETALINDAJEAN [...] capsule) fluticasone nasal (fluticasone 0.05 mg/inh Nasal Whitlash) furosemide (furosemide 40 mg Tab) lisinopril (lisinopril [...] pain at the operative site Pharm[facility] Discharge Instructions Discharge Instructions New Follow Up Appointments after Discharge Follow Up with Paul Gomez When: In 10 days 02/27/2023 EDT Comments: Call for followup appointment Where: [facility] [address] [phone] [employer] (1) Medications What How Much When Instructions [...] fluticasone nasal (fluticasone 0.05 mg/ inh Nasal Whitlash) 2 Sprays Nasal Inhalation Every day Unchanged [...] of y (more content not included)... Normal [facility] Comment on above: Result Comment: Elec tronically Signed By: Nic CROWLEY, Jamee Jang\.br\Date and Time Signed: 02/17/23 14:35 EDT Inpatient Patient Summaryon 02-17-2023 Inpatient Patient Summary [address] [address] [facility] Clinical Discharge Instructions PERSON INFORMATION Name: [facility] Admitting Physician: aPul Gomez MD Attending Physician: Paul Gomez MD PCP: JVAIER MARY DO Discharge Diagnosis: Comment: PATIENT EDUCATION INFORMATION Instructions: Excision of Skin Lesions, Care After Medication Leaflets: Follow up: With: Address: When: Paul Gomez [address] [address] [phone] Business (1) In 10 days 02/27/2023 Comments: [...] day. fluticasone nasal (fluticasone 0.05 mg/inh Nasal Whitlash) 2 Sprays Nasal Inhalation every day. furosemide (furosemide 40 mg Tab) 1 Tablets By Mouth every day. lisinopril (lisinopril 20 mg Tab) 1 Tablets By Mouth every day. metoprolol (Metoprolol tartrate 50 mg Tab) 1 Tablets By Mouth 2 times a day. TAKE 1 TABLET BY MOUTH TWICE DAILY. Comment: Normal [facility] Outpatient Surgery Discharge Instructionon 02-17-2023 Outpatient Surgery Discharge Instruction [address] [address] Patient Discharge Instructions PERSON INFORMATION [...] Follow up: With: Address: When: Paul Gomez [address] [place] [address], [facility] [address], [address] [address] [phone] Business (1) In 10 days 02/27/2023 Comments: Call for followup appointment Pharm[facility] Information[facility] You may receive a survey from [employer] asking you to rate your care experience. Your feedback is important and will help us understand what we do well and how we can improve the quality of care we provide to you, your loved ones and our community. It?s an honor to serve you. Thank you for choosing [facility] HERE ARE THE MEDICATION CHANGES THAT [...] day. fluticasone nasal (fluticasone 0.05 mg/inh Nasal Whitlash) 2 Sprays Nasal Inhalation every day. furosemide [...] and water are not available, use hand dipper fish. ? Change your dressing as told by [...] dry, and (more content not included)... Normal [facility] Patient Education - Texton 0 02-17-2023 [...] and water are not available, use hand dipper fish. ? Change your dressing as told by [...] take sponge baths. General instructions ? Take wize-fcj-dwotavj and prescription medicines only as told by [...] Your wound opens up. Summary ? Take jcfp-ebw-ujzhjdv and prescription medicines only as told by [...] provider. Document Revised: 04/28/2022 Document Reviewed: 04/28/2022 [employer] Patient Education ? 2022 [employer] [facility] Pre-Certification Formon Pre-Certification Form [id number]#1 .00CD:127 [facility] Consent for Procedure/Surger yon 01-19-2023 Consent for Procedure/Surgery [id number] 7#1.00CD:127 [facility] Consent for Procedure/Surger yon 01-13-2023 Consent for Procedure/Surgery [id number] 1#1.00CD:127 Normal [facility] General Surgery Office/Clini c Noteon 01-12-2023 [...] the procedure. 2. On apixaban therapy (Z79.01: retirement (current) use of anticoagulants) 3. BMI 33.0-33.9,adult (Z68.33: Body mass index [BMI] 33.0-33.9, adult) ATTESTATION: Documentation services were performed after patient or guardian consented to allow [employer] to record this visit. SILVER information specialist and provider reviewed before signing. SILVER: [...] mg oral tablet fluticasone 0.05 mg/inh Nasal Whitlash, 2 spray(s), Nasal, Daily furosemide 40 mg [...] - Denies (more content not included)... Normal [facility] Comment on above: Result Comment: [...] ovarian syndrome (PCOS). ? Binge-eating disorder. ? [place] syndrome. ? Taking certain medicines, such as [...] food choices, such as grocery stores and [employer]. What are the signs or symptoms? The [...] 0?1 drink (more content not included)... Normal [facility] Coding Summary.on 01-09-2023 Coding Summary. CD:[id number] Ww+PGhlYWQ+AR7BRCVyA 47cmFUunS4hZ4VBIUvMA ywgQVBQTElOSyIgbmFtZ K0nzWBsUMPe IC8+ZR0lNJOxHqwygIZw y5P2zCB0F43rvm2zERzf lUV4TYTgBlUfskmih0or eWx7JFpyHdpjDrHf GMQgpZ86OMT5hJ97Ts49 lQUrhNEtn1fddUv8NtMd ITDlQJO3fGguEOefz0Yb CADaV56esFZpg9Z3 IGNvbGxhcHNlOyBlbXB0 yN5kWIvkvsfji6qsjzto Fnl9nm33gIYjg9A4kQT3 R0UdmrK5LUCaaKSx OugkxBPLsF5byrqpi0rv bvyfYiRuOTQvOWy7OCy2 QPFbkSfhZkOaVH37OOF8 SBHgyxOvW5UqRPAa qNzyHqP7h3N3Vi6GT6YO SwyjX9UKMNPRNQshmXI+ KJ20vl57O3DoPsjhGep4 SYVoDTY3kYO0gC0w VADjKSjvf8F7qIV1K3Ys hjVjxh2jn3lvWAVcZGvr R52unGVwh9S4SWHvsSF8 MOUryXjpXlJjeJ84 Oyc+RKUrcZshw6TjQwtq a2mtm3hrgPn7XsmjNDCq rsBvuSddFMN6t8CiNe3m NLZejBQ8gAI7kA8w VxYzPwQ5HDycE289UiNg sMDqZwfoS55fJ0IvrDQ+ WAWnYjc6RLLtaCryUF1i V5ApZVCgcbgivYXk jThiGD3bBFFoavcmUWFm vL8uJNRuV5s2QoXzFoR5 UWwfO6GeXQFydzvgRo99 vB8jCfIhRjC9URvx M2McjcE4XDAinGJzYArw BNO0J92sy6W5GWGdLDCr XPN3yVI2fZ6rgCostgdp bGVmdDsgdmVydGlj FJemLMkuU604TOKbtJqc PkNvZGluZyBEYXRlOiAg MDQvMDEvMjAyMzwvdGQ+ BAFpIXY2uTtjEUKo uAUpXXiaHw8ctUrkrSbw TN8fTTTawkfgQYHifK1z WKVzsTKrgDwrSU2qDNGm rtrpm245XjUcFWF5 DQFxzTPkU4JekK9tNwKi ZHEvHDMzO1NpyRLpXCko C618FJamRlR2CDVtwsDo O6ZqGEBmbVoeRtZ6 i0D0Fz5Wv9NbuclhR7Bt iDIrGsEuClmsOQm0F3Ml PjwvdHI+GR01AOIuVJ18 MRs5MDS2sUayVQyn TQDzN4MwpA5vUrGkUFHg ZGRkOyc+PHRhYmxlIHdp ZHRoPScxMDAlJyBzdHls II7hNy3lJLGgKEBf gVkyrLUvPrWmw1edYCPf ZCpuLK9fgRtzB8KeoJY4 DRTut9h0Qj66X05xN5Wk dXA+NNMraIO2mUR0 cM2tKtFdUpJ3KEwkP061 BmEbiEJwYwlmo3uvt6pa sPd0KeG1MICfabMinSnl KIF9z3ZaTh22V77d IHdpZHRoPSIxNSUiIHZh pHvqnj3sgR2oWq4+PGNv lLK7cWZ3lS2bUwIiUdB2 LHqcC584EwGsbKQr Fghap4onk3kbiTy1BkUf BJUlqaPeaJnyOEK9j5Yu Zz16C3RsbFkqj9LpYyx9 zy11oDZbx2Y9oCB8 V4BcBAHkaqeujXUhyStd JC7oTRFqiqmpEXXxyU5b RLNaH9o1NcQfDbS7ONdm S9UgzpC5VPPjiEPl EZVrlIUHdG1yallvh1wt shvuTpKbJJTpWLu0ZCb1 PMMwuBhmDpTbLWB5PqV4 IYV7gBLbfT2eyZuf gxrdmL5cVwg+MWK9dOUq rZSZQA7tAgmzeTT+PHRk OWP6iBajLPatUVDtwI8c GHHhS8f6FcYxXnR9 EYvkM6ViolF2RVLijQEu ZGMfiVTNiP3pazlhx9je eogeHuNdCATnNNg7NGw2 LWFsaWduOiBsZWZ0 ShV4VZI4xJGbiL1smEww qjsrmB8sKtm+QmlydGgg TEP8RFi7E5HjRlf6ULZl sRqtPS0xgDZwJToz Kt6euKnunTqsYL5zKLAj jgfni259SyPnq2egSLGf oSKwTNjlUEU1I25jz9E7 XNCmBKReHZV1bBA0 tJ3ohBtksifkhCLmoDfa kySwgTndPIcsCVgmO240 TDAkeTesSyNrLCg6P4Hb Ino5QJRqvAjhIG5y gRCbGWvmLu0fkTtfaYtt UY0iZTYlpngue974AgXu p7ljNXZzoFDgSFmxVHL3 M71lb6A3XACmMOVl RFZ7qBJ8vS0nfDfiwbey bGVmdDsgdmVydGljYWwt RPejW559FPXlxEbfPyPg zHk4D7JsKtl2XGYc eQfwVP7crGAePDvuPd7d tTptwFwfJD8kKCXjzyhw i756PgDzk5udFYBhgDVr UWpgNBV8W65cx1J7 SPZxYPHkJOP3mOB4zS8d bGlnbjogbGVmdDsgdmVy dNpyKFigFSskK812XYAt cDsnPlBhdGllbnQg XYojDJy1N2ApCvfjcAM+ ZB19HAUyNW04vLDkgGHr r7ibpDg3FwGqQMXtSWQ3 oOjgUKtok1LaQPDe V46ebIAhq5K0WPOscLmy hKMrYoXmkSU2fF7pDRtf hlcjy3fhsvynRyxom2wu ie79qN87A26uQUje ZHRoPSIzMCUiIHZhbGln pp9goU0oNc1+PGNvbCB3 eJW1bV1oZTXnAcU1TZlb P719RfDyyLRhSltz b8jlq3rzhEl1JnD5WOKs dyPofZpkHHB7x1KrKp31 F62lAPlsGFMzDWGwSJUe VBObkXgmzk7wzD9y Ii8+MDBrhXP7aXY2xT5h JgOsGsH7UNgzA304RqHa kDNdGygfO38bH5CclKP+ LPUeIto2FPHdoLpg AF4qoZDeQUgxTn6yYWI6 YvNgIsXoZBbkB2XqTCQt rdkksezrpVS1KSPyAEJz yH94Yc2chXeiZXTr uBBUeI3fpdfqj4rkffiv UuNsCJVnTIh3SCd2JLMm eEwlJfPmBCW3SeG1ZWY4 dLPrvV6mlCiegvja uO9yO0ZtRVVeybqeZp48 wR3uQpNlWvH0YYllUvy+ M77NSBcEEDFIUYZAXXGI QMF1Q1AiMup0AOFc rKrrFH0flGCvQFloBw9w gEcfeFsgIX9cQFYdiphc VNVemA2gTNLupLTvlUud JL7qZPCtqxdmo594 IgXdIBV8YRXfgQQrS1Bv xV1lOdScYDStBZEiT6Xj jNMcLNknH512FFvkUvY2 CXHbcxNaG0VvQMPk oLxtHoJ8t3B2Wo9eEA8w Hf5dXBEoRH29JH23bCWm w2S9oRU7J6SiPNLxpano whnecSM3RQRpVARp gZ14dFDrIAdjFv2fg6S4 u672LEEgKFCucD90Xm2v kLsvJSLjwCGWyB9fxdet d2yrmukgEaZxVNSw CNb5WWf0SFXxxZiuNnKa LTE6XcG8COB1jUFebX0g hAlmhkhhaB3mIku+ODAg HYUcmkV2T8HmYoh9 LAZmmJkrZA8ycQVfDDrd Vq0iqSdreQhkRF7yBPOt beukNCLyoE7uETAweFLn kOdjRD7yLRJzvtrm n999DwZwJFA3SDYizAYy Z5CweS8pPiRrIAXxHFWo O0EngOVeBXidY493ZXcd TbD7UJNwbaZuK6Bh SKNftPtgMqM7x0W6Ch8P EZ1fbKM1T1IrAez4SCBf sWwrLG1naMMhKIzdWj9u bFtgyDqgRP4xIUFm tukhQDGlvN0zJMLuvOGw iLjrRR6vMYWvnkfnv569 FoVjDPF7UYMsdDOwK1Iw jM2lGlAfFIMmHNEc V5JmuGVeCDhtP917GIcn AkK2MVTzrtBiY0QlXSEw oOglQaK6n6G9Sy5VCPZx KJHcoEDdLdU1G2Xy PjwvdHI+NG95ALCyNO41 rMZwpVWyj7pnaTh2CrYv AZPlBME9xWvcAApfl6Cm TWJiI52cuUIpr9M9 IGNvbGxhcHNlOyBlbXB0 pA3qNOqywpbmy1lmqefd Miuts8xolu93fE37V22m IHdpZHRoPSIzMCUi NPQqhPbsro4rnK0gGh4+ JOAtkGC2fFD1kK1xDaKs MnG0OFmzK003DiBbfSAs Hwhav8ywq7rmcJw6 IjIwJSIgdmFsaWduPSJ0 c2VcGr93D59uSAltBEUr DJUqVMAqQWPcbWfpxs1n fZ7nAf7+TA1uj3ma wi39kO92aDJ+PHRkIHN0 iGblTTnbPWOisN2sZDxj SyG4HATxSpUpxA63lWOc QQyqBc3ytDdceFor SB2gGJQmexxtp123JoSj c6byPJYskSUvZNatHGQ5 C82vh2P8LIZzHMQnUQB1 cPO6fM4nhUwzfazw bGVmdDsgdmVydGljYWwt SGdtR397QBIqyHdgUxXb iVYxR6xtfbNVJT2oIwui dGQ+GFRsVKR1nImb AHjgKKPedW4uPSXkW4w5 OyEbWdL7RUujW5BsmlM5 DXCnlEInBUBmxCZZdN6i ldfqj4bjqlgmXlPy JBYbXYe1DTy8YHLirIql RaNqKQX6TbV5RNT2eWMq jG6eiDcfeppedX6mXfn+ RklOOjwvdGQ+PHRk KLI0dLyyKJykQRQtqW8z OLCaE4r6OfKrAkB6WGll U8ArkzB0WOUiwIUjJZSa sWDSgQ4dldvry2sr uswmJuShJPNsJYi1AQq3 WYEcqXwpUmPqJPP0EpP1 PZM7kKEgrR9bfXwcwjgj hK0uIqk+TVJOOjwv dGQ+IEWgSGP4eOuaRQnd UZKqwC1yDLZfZ3p3FgRr FaF4HFtlT3CwwbJ8LYWq xGBnWTTevDBArU9a grrlt8zgbfpfGzIgQEPc PRp8DEs8JVAxuXysUaGe GMA9CkQ3PWX9uJLgdT1z dZdutfbxdV5eZvx+ UWE9IIG1MB36NW77A2Gi PjwvdGFibGU+PHRhYmxl IHdpZHRoPScxMDAlJyBz lOdfCC6xFw7fCASo LWNvbGxh (more content not included)... 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 female here for mass on left breast Patient presented to [facility] ER on 12/28/22 with mass on left [...] breast cancer with a lumpectomy performed at [facility] performed 25 years ago. The patient was [...] evaluation and attempt to obtain records from [facility]. 2. (more content not included)... Normal [facility] Comment on above: Result Comment: Elec tronically Signed By: Patricia GUILLEN, Paul Walker\.br\Date and Time Signed: 01/04/23 14:16 EDT\.br\Electronically Co-Signed By: Alaina Calixto\.br\Date and Time Co-Signed: 01/04/23 12:09 EDT Coding Summary.on 12-30-2022 Coding Summary. CD:[id number] Ww+PGhlYWQ+EM2TRUGbN 48rnVZznO4yU0KBJSqDT ywgQVBQTElOSyIgbmFtZ O0vqTExDUAv IC8+KQ1lNPCiHopdkHBt r6S0nUT1M84fpw2rNDvy dMO9EJPrFqTcryhct1zz dJl5EDysYubcJyAb TVSmcH87TPE4iQ22Fa93 dGAsbUSfy6cveJp9JaTb EOTiHMA8kMxvWXwli1Be LIZrR02hiUOix8K7 IGNvbGxhcHNlOyBlbXB0 yV5gPWxamrfzd7tjgwhv Mkh1fz75tHYph3M2xJQ6 F8EdquL0VKSzpKOp HdsnrHIVfF2mvvtqn2qn jwmoStAsHHVgDPi7JNv6 OZMudRdlStQlKO51WGJ7 MTSwbqIhF0WoOEGi vRzvXhG0n5B7Sh0BT8EV DyrjK9FQUZAENNellFU+ DY44ha89E8TbJhxvFvf7 BHToIWS2mLT4yK5o YJOcJIuyh8U0xSI9T3Qw qnUdyu8ie1xbWIHrSNrk K78lwESas4J8NDCboQL0 NMNhjZhmLzPibG70 Oyc+GMTgfUcdl6FgAfqx t3yyr4iosHm4UmysQVRf puYqaOwmTVE3l1WzTq0v ICNnoHF1hES8uC5l DvObJrU5PXwuR130LoLz nGRvEbzoX08nC9NnoNO+ AMLrEtm3JGEjmWdnKS3j W5LgGKPgnzfcnWXj aPplIR3kSPOcmjedIRQh sC0zHXMwG8j5YnJoMaC2 QRvkE0PsGNSpxkxuGq74 zX2lWfEwXvH4GUor T7RlneY5GUXimNNqRLyw YMG8E89zc1P5VLBiXDUd RKO8iQL5fB5ajYyjdakl bGVmdDsgdmVydGlj VEpzRDxbA108SJOkzHqx PkNvZGluZyBEYXRlOiAg MDMvMjIvMjAyMzwvdGQ+ GQBcICL3xEmtQCNk eKRiJMzpKs5dwNwcfQpv QQ8rYHHjmemvBFHpiC7v VMWvgZSkoUlcSD4yHOLo mcprl083NoIkQKQ0 BEMobXSqK6LfrW7rNsHf ITPfOBXfF2LplUGzEOod R805VIqzIrY3TJZbxrWi F1MgSOWohBvzUhK6 h9B9Oi2El1OpfdqkJ5Gy dFDdIuDoCfwgRYx9H0Sb PjwvdHI+PC83LQEdNZ64 QVo5RHA7tTctGXww APCvX1XqxS1wUcFlUJXo ZGRkOyc+PHRhYmxlIHdp ZHRoPScxMDAlJyBzdHls LW3jJh1lMPDbTFTq uRwqdTIjEzBfj8ngFHHn DLlfDD1opXuzJ4JafVT2 NNLnr4t1Tw33B34jG1Rg dXA+XARkaQB8xYE8 pT6pFxXvYnZ9VCqlT177 OqUdoXIyVseti6xor8uf eXz3ZyV5WTOsoeOciXsb RTP7z3LoYc21Q13v IHdpZHRoPSIxNSUiIHZh qFndna9adJ9xLx6+PGNv xTG1dII5dN2wIsAyCgY0 WVyfA878OaHpuFDq Ajouq0ryn6synBk9NfEo SQSoddZxcHtgPML8r5Pi Or03C3RymRtpi8HmEoj9 jk77jCTgm6O2nCF3 E0NvXYFvrclvlOQsjRzz VI2jVAClyvdaITEcxN1f UVQkJ0q6LnWuEjO9TNjo F6RvnbJ7LOObpAGy TLDawSFSsQ3slhgpm7ba ahzjVwJcGHBcOTb4YYt3 JCYmjOuePoHmVEE0ErQ6 SBS1rOPxmR7fiMqb abehbI3qYja+HIT5wBQm uQFENU4sVguqoHX+PHRk VLG4lAilXJvfLKNgrE0v SZIbF6q7QuVkZrO2 CXufH4IehpW2GPZofTRo HZOirHUEhM6yfcauc6wk kfcrRlOcJWSmDXa4JCd1 LWFsaWduOiBsZWZ0 DwH2ZPC8pWRjoG5stDop sadgcV1pRpr+QmlydGgg XLB1HTw5W1VyMrv3WDVr lVzsMD4bmOXcWFve Oh6ohScqnBouFH6bWVLx cjkic578CcSlu6jkMKBi jKFeTAjcQEX2K02hv5S7 ZXGgFCNpNTN4yQZ9 zA4vuTacjnckaSSqoZwu uoFnaHtmURvqJNddG891 TFKdsScbLwTqYTr6V6Le Tki7AHCxwTpoBS7v iQJdRFolDr5lmMlgoBid NI1uARFdzqdtg894WiNr l5uxYTRrpJNyNNbqSTA9 H27ez4O5XFMiUEJw UPL4dIN8cX4imLamsdfg bGVmdDsgdmVydGljYWwt YUiqQ689TZZgqEbjJaVg mAo1J7JjHay9WUDr zJhsMC7kmMBjNZyeMj8f pYdepEetEM9oNTNavbqk c826XsKcs4wwYDUszHDf BFprOCH1W84gj2N7 WXHhUYTwGKZ0sSP1bX1z bGlnbjogbGVmdDsgdmVy vAxfWJgqBAbhM736XKUg cDsnPlBhdGllbnQg RFteMQx2B8DuEfdxsUG+ LM71FCExRL14jDRrmHCh b9pnyEp7KdKzPBFjPJL7 sJioFMhqp8VeKEMt S52udVTbp0O4JPOjuNdh fVCcUkVbwGY0kG1xBMgx ckxzx3vxprjnXropt4uf vx24vR15E07fIVlp ZHRoPSIzMCUiIHZhbGln rg1yeU9aUb4+PGNvbCB3 mVN1qF8lYWJrZsB1RVvf I385KuPtnEUsLtrf j5zmr6kraHf6AgH9IZXr etQkqXwqJZA8i4MqPq94 B47vNOngCSIdDXMuECTq SEQzzXxwfg6vtN9c Ii8+AGHjsJK8oDO3kP9d BkOvNxP2FBruM163UsLd hPHhJyglC39pI3PolTW+ LWTcJqj3LFYekSrs HI5meQUcHWlfRv0aGUN3 DlDhDwAiJMujJ0FpDOYf mntuikdjbPE6CNHzDALo xA39Df4iwIwbIKQu qJBNyJ5ssygos7nfxcec OtTbLDOqADw5DRg5UZHa wZkxZzCgNMK5KrW6LKZ0 lOZkxE8hzHkmjvhx oQ4pD8CnBTQoqqqlDc05 eF1hScTmKiW9NAezUrx+ I66SLMcJYBVIOBBJMLLW JLA4T6WiNom8DUJi aOdgXJ4tcXCuJAgfHy5g pHaprThlJW7gPZQbmblv PHMwqC2nTUIunDCakZky OT8aHHOkonwsn422 CjSnZOB1COZjsRMbB7Yu lL2pPfEbUMOtPVEnT9So zBBtMJpgB422UGmhJqT9 ACSqhaRrF5VfRLAt mXfbWtC7o8D1Su4bOS7e Hn3yMJViJX30RT05fTNb p6X8zWE7Y9CcALEvswvw fmhihRA4OEFkDHCe oE67hQQiTIdtOi7mn0K5 x928NJFdOQPugF09Nb5n bCvaSTQmaUHWjF5jxcmm b3cunprhKhRtEASf XUf1OGs3ROTybJxyBkRo KGU4XcJ4NSR6ySUpaK0e xFhwplrbvG8xVvs+ODAg TEFenxY1U6BzQyv5 XXZqiKovFM6prTHxLZvh Jp8hjOzdkAmcYM0rIUJz qagxAKKhkM5zUKDibIQz oCjhIO1uPUQwrace j098CxUxETT9RJWfxEOf E3KuiP4kOwZvZGKgWCZw A2UzhCNrBWkuL187ACqf VhE1TCSdkbLaU4Iv ISKjwGdqGmB2z1Q2Ho9J SD5ikRK4E8NyHyb6UIKp mHqbQQ9nrPWuWCbxMs9c hVvmhRzzAE8pIUCp ircwFVCvfE0fBOKkdQCp tDeyYK9hKUHijjxgk256 YdFrCPX9QCJljRWbV3Je qK4xEnAiBGEfPCCk H2AgdGClERrxL155IRtk ZoD8VQHwkwFxY9HaODIv fPcmRcZ7h7Q7Mv5EgRHx K3UiH1p9T1NgUzrj dHI+TS48MIYhDL68dTPa jQGgh0astLt4EkGuBOOk YLI9gNunSLnaw6GuYTNu G64cgTEwm8L7SKFf zXyffYQnUvNppOF6vA9r XQphoqxgt9zfozepGffo c2ufyp68kD24P76zFKht ZHRoPSIzMCUiIHZh kQjlha2qrP3yBs4+PGNv bGE7xEU6rD6fDcSsSeN5 RHpaK556InQkvBWgYnpl o3wvf3gdeMa6QoJq DJVaziZudPpvVFT4o1Sf Kr50O90rIZdsFZBbWOGm MIKzWVObqYnsxd2hqN5s Ii8+UH2tr3rleu47 vW47rZN+NFWrYZT5pGfy CKptOMZheV6qMXqmCvW5 ESUqHbDsiM27jXKaPCtg Zq2cvDccvXsxXK0k FWJbimibo065LmOtf4dl RCHepRHjKDlaSFB5Q27e l7I7ZIPjQCXgGJT9pFA9 oB5hsAylywdxjRAv dDsgdmVydGljYWwtYWxp Q010BHQjqNjaSqKknZZa U6vevlNTAJ2mXdxuwPI+ ZMBuKQE0vMrjVVys TGAcfB9uZHKtR4z8GhPc MgL2NSbzX6XadhW1LRWn fZDrSSOwiYJZcG3gemuc n7elxhrhBqMiJWNw KIm1NMs8OJKdwCjpWeLy EQP6SeS5TJW1bKTtbF7z dAvnoedbkM6sNzb+RklO OjwvdGQ+PHRkIHN0 pKkoBFbdJAZmvP1wWTVh Q4z9EzRrEzM4CQtcU1Wv ymL1ZWZfcISrKNJsvBZX hY9vsexls0idfmlp BrZqKEKqFYm9AXt9MJSt rHrxCnPxRRI7UbB6ZCF5 sQAzaK8zpOjaihcveD0o Oyc+TVJOOjwvdGQ+ AHSjGJP0hOijWDgzJLKj oK0nHFFvT1w3JgWcZvQ8 PZikJ8CgygJ7TFRraCLm KMCroUCAlD7iutdg t4qiunboRqRfGTJrDTl0 QRg6MUJfeHfmXrOhOSW0 LqH3HWF0uGMsrV8mqIck umtxqZ8fCpk+UGF5 [id number] dGFibGU+PHRhYmxlIHdp ZHRoPScxMDAlJyBzdHls EU0fKc0pYYTwVGFf bGxhcHNl (more content not included)... [facility] ED Note-Physicianon 12-30-19 ED Note-Physician Basic [...] and Complexity of Problems Differential Diagnosis: [] [facility] Data External documents reviewed: Not applicable My [...] QID, # 40 cap(s), Refills(s) 0, Pharmacy: [facility], 146, cm, 12/28/22 16:31:00 EDT, Height/Length Dosing, 69, kg, 12/28/22 16:31:00 EDT, Weight Dosing Disposition Plan Patient Discharge Condition Stable Discharge Disposition To home Discharge Prescription List Prescriptions cephalexin 500 mg Cap, 500 mg= 1 cap(s), Oral, QID Follow-up With When Contact Information Dae LANDAVERDE In 3 days 12/31/2022 EDT [address], [address] [facility] [address] [place] [address]- Business (1) Additional Instructions: Follow-up for evaluation and treatment of breast abscess JAVIER MARY In [address], [address] [place] [address]- Business (1) Additional Instructions: Patient Education Skin Abscess Attestation Patient seen and evaluated by the physician him assistant. Attending physician was present in the emergency department and supervised care. This visit was performed by both the physician and an APC. I performed all aspects of the MDM as documented. This report was transcribed using voice recognition software. Every effort was made to ensure accuracy, however, inadvertently computerized labeler mistakes may be present. Appropriate healthcare PPE [...] inpatient medica (more content not included)... [facility] Comment on above: Result Comment: Elec tronically Signed By: Rhys Chowdhury PA-C\.br\Date and Time Signed: 12/28/22 16:48 EDT\.br\Electronically Co-Signed By: Paul Teixeira DO\.br\Date and Time Co-Signed: 12/29/22 07:13 EDT Consent for Treatmenton 12-10 Consent for Treatment [id number] #1.00CD:127 [facility] Discharge Instructionson Discharge Instructions [id number] 3#1.00CD:127 Normal [facility] ED Clinical Summaryon 2022 ED Clinical Summary [place] [id number] ED Clinical Summary Person Information Name: DARWIN HEART/[facility] Age: 82 Years : 1940 Sex: Female Language: Ethiopian PCP: JAVIER MARY DO Marital Status: Phone: [phone] Visit Id: Visit Reason: Abscess - simple; [...] 12/28/2022 16:50:39 12/28/2022 16:50:39 12/28/2022 16:50:39 ADDRESS: [address] [place] [address] [address] [place] [id number] [facility] DOC NOTES: MEDICAL INFORMATION: Prescriptions Given: Medications to Continue Taking That Have Changed [facility], [address] [facility] [place] [id number], [phone] START: cephalexin (cephalexin 500 mg Cap) 1 [...] meals). fluticasone nasal (fluticasone 0.05 mg/inh Nasal Whitlash) 2 Sprays Nasal Inhalation every day. furosemide [...] Follow up: With: Address: When: Dae LANDAVERDE [address] [place], [place] [address]dict [place], [facility] [address], [address] [place] [address] [employer] (1) In 3 days 12/31/2022 Comments: Follow-up for evaluation and treatment of breast abscess With: Address: When: JAVIER MARY [address] [facility] 2 [place] [address] [employer] (1) In 3 days DIAGNOSIS: Breast abscess [facility] ED Patient Education Noteon 12-28-2022 ED [...] these instructions at home: Medicines ? Take sove-yja-tijajxl and prescription medicines only as told by [...] and water are not available, use hand dipper fish. ? Check your abscess every day for [...] Document Izzy (more content not included)... [facility] ED Patient Summaryon 023 ED Patient Summary [address] [address] Patient Discharge Instructions Person Information Name: DARWIN HEART Age: 82 Years Arrival Date: 12/28/2022 16:22:27 Discharge Diagnosis: Breast abscess Primary Care Physician: JAVIER MARY DO Provider Information Primary Provider: Paul Teixeira DO Advanced Director Of Quality Control:Rhys Chowdhury PA-C The exam and treatment you received in the Emergency Department were for an urgent problem and are not intended as complete care. It is important that you follow up with a doctor, nurse practitioner, or physician?s him assistant for ongoing care. If your symptoms [...] Address: When: Dae LANDAVERDE [address], [facility] [address], [facility] 3 [place] [address] Business (1) In 3 days 12/31/2022 Comments: Follow-up for evaluation and treatment of breast abscess With: Address: When: JAVIER MARY [address] [place] [address] 2 [place] [address] Business (1) In 3 days In the event that this physician does not participate in your insurance network, please consult with your insurance company to find a nearby participating provider. Patient Education Materials: Skin Abscess A MESSAGE TO ALL PATIENTS REGARDING OPIOIDS PRESCRIPTION OPIOIDS: WHAT YOU NEED TO KNOW Prescription opioids can be used to help relieve bpetbwyg-xi-lzgoam pain and are often prescribed following a [...] and overdos (more content not included)... [facility] ED Note-Physicianon 12-12-19 ED Note-Physician Basic [...] MARY In 3 days 12/08/2022 EST [address], [facility] 2 [place] [address]- Business (1) Additional Instructions: Patient Education Venous Thromboembolism Prevention Deep Vein Thrombosis Simms Cyst Contusion, Ejjk-nq-Zcaf Bleeding Varicose Veins Attestation Patien (more content not included)... [facility] Comment on above: Result Comment: Elec tronically Signed By: Nichole Petit PA-C\.br\Date and Time Signed: 12/05/22 11:57 EST\.br\Electronically Co-Signed By: Bruno Dowell MD\.br\Date and Time Co-Signed: 12/11/22 17:54 EST Coding Summary.on 12-07-2022 Coding Summary. [id number] Gh0bWw+PGhlYWQ+PE1FV EPzW76xeDPykC5XI8xEI T9PIVODDSACAL9SOW3oy BO2PKflI4ItwyCt OawttPDwQM38NFo4ADZ0 iQxfYSsrlX4zrUEfK7k3 LaRjZR35sW47QDalRAXc LmW1ViWjixrytZPb H3vqZeBskFUrEjr+PHRh YmxlIHdpZHRoPScxMDAl EnOqcJfvUK0oBh3lNVCe LWNvbGxhcHNlOiBj c2uyVEQgWAjaFF4buChf C1HdhVS0PJNya3t8Kd75 dHI+NKEeKCX3qHkkDBnx e582OvJfp7zaIEY1 jCZpXEecAZW4Q16aa9S4 VQCzPZWiYAG3vEN4lS0k uSamqjkbS6QrlMFjShY5 FWZ7lVYwtT8enDuk bkjobS9eXte+U29YWE3Y XOWXTA9GKnk6L6LbBgck dHI+TL86DDFpIW29rSFk bBAum1qosPg3VaZj WJYoTPY9mGkkDBkyu6Ij NGCaZ03afHScz4B5URFm sTregNIeJtJqjNA0jB2w KSepvmasc6qwmaoj Apvjz1rvoy46rU30F22l POkzFDMtQAQ4DYPdRSMo yNusmz4qeO7jIq4+IDxj t6qcb5tcaUe3TyYc BFKdywXmfKjtAAP4p0Jq Xb33S4CuhTwkv2XbOdn8 vs69uHMzn0U6eLX1GDzv BAEovQ3tZScqOzK1 CFZnNhMsnY21qSOrGGzm Jw0vwSfilYztJQ6rOZQt qripVVZztA9zNZSivAVn iPbyVP7mXVBtfuzm o785AqGnSDE8TWLvoLNj C0MjnB4aTaAhPIGhYSNy I9XcsRDoMMunG284MUzp HfL2JDGccmBnV2Uu UHJbvZcyBiU4g7Z4Rf4F q1XkitnxBPP6HRpvYZQk GjJ1JjVfHeL7V2MxExo6 XZZowAdqBG8yA9Uy XHIfhbxvanfwqUK8SAHb AQHmlM01fPHjCRzbZq0t v2T7k281MCGgYZLdzS20 Rv7buIhgNPBbxXYQ eE7lbzmqs4zyxxlvFpXq CHTtMQi4VDg1DWWglCbc TlBgVPM9AqH1WMG5cOXc dB6ljVmfrtxjuP0f Oyc+F03nxW9hNTX8BAM8 iuhvOTCrqxTaGF90GT10 E1FxBgewmLHewVT+PGRp yoZwcKhbCC8yLxYt a7ggv8TkIKivL4EcOXSs JXjwQlx1GUYoTSH5kFL0 kK1qQWAiRJwbc4M0oHG2 H0GgntLzwq5bu4gl DTJqQEygO62bmIPcq5H4 WTDtyBH8FRNcxUreTuKd cZ23Mbw+UVOtcPmeq1Ha Lyslf6vcg9ejrAo2 IjMwJSIgdmFsaWduPSJ0 e8KzCo18G28dTVvuWUYa DBSqQYCjYIMumThifo2o zE2fRi2+PGNvbCB3 cJU0eS1kACJbBcX2ECew U695KvMycBLaZukho5py w3bujJz4NoXdVBEbnfXw sElgWGJ3y0XvWm56 N44eALzoPWWuZHFcTBBj ZGKibSqgmz8azL7iGl4+ AO7xg9euwo36cS61cZN+ IPWwTLJ9nWazUYji FCFltJ8tRJytTjW4PFTk PgHkjG63bBLkFDjxRg7m vPgmqZmpVP6sXRFfcjgs j636TxOve7lfVPWy dALzHLldUWH0I03zx7B4 DYIhDMZuMVO2sAI8tQ0q bGlnbjogbGVmdDsgdmVy xBaiUClvDCcdY914 IHRvcDsnPlBhdGllbnQg FuIrXIy5X4EiCma3DIBi oEyiWO3gzRNtYOlwLb1h xAxaiVqdNP8oAZGm yzhvo653ChTcr6htRPGl yTArBIhdJEU2W46ev0L3 BNKwMRJkGDQ9cNP8sC8h bGlnbjogbGVmdDsg hkAxnYfoTFiwWZgpU626 IHRvcDsnPkJpcnRoIERh nBP0AJ49SL82oJLsp7C1 pHG4G4WmFTRwmhzc cskyjHC6KFGpLMEsvJ57 Ec2ulNecQs6pUSLbTVZ4 JPTahORwY2IteP4bVfVh YVWvVZCsV5EppNYb TXfcL877AHfeAiI6ZBEg olCnF8BpDTZzpJyuJtZ1 o4B2Om0TC4L8VD50QV11 jMNzz3P5vRJ1A4Zj LRYceqyeypgasNW1TGDt LFDitV39Kp5qjXqsLb5q LNRlMBD2NTTroKTeG9Rl dG1lZwRxRTJrLFJu R6YmmZOoKYpwO573HMjv GdK4OEXfxfUvY3FjYWUb mJjxXcR8q7G3Uq9NKCp9 NC29VM01yAEbl0V6 wST5T3HyMVBjnlmuavor nLL9HMRaFGQghU91Dw0k xJoqIs3kJEFcLPI4OEIj nGIvE1HbjT0tJhWu UJXdHJSjV8PczZTlXVjf P052XAznDbS8NCHeumUr J9OjSHVgcMahBhX4q0S7 Vg1QGTDwHJ31FEM5 sZJ6GR85SM52P5EpAzik dGFibGU+PHRhYmxlIHdp ZHRoPScxMDAlJyBzdHls WU8tGy4tVNScKDMn cDucpFHyHvCwo8syQWKw MZpmYR0qzPlwT4NdkLN4 NJYcs5i8Je62Y43gR9Zv dXA+WMDhwGX8xOB1 nZ8yAwMcMnK9ATjeF959 IxSgkWRwMfewt5ikk0vd yVu9LtG4ZFQbnhEcqQkq ZAT1r6ThRo74G34p IHdpZHRoPSIxNSUiIHZh kLodad7lhP8eIz5+PGNv hFU8rED7eH9cVwTzDzA4 SXoaQ176KlFonXOi Erhoy5yqn7wvwIb9DtDs WHDlpgMynMmyPBT5a0Mc Da52B4AflKgjo3InTdf9 ir05eDSau5O0aFQ9 H1BuCEYukabltBGjwSpy IO6eKCTeeebuVAXbhL2n MXDjY6f9XbWeTrP9CTzn L1UaozK2IFBauZYx DGcrJRX3S35jm4S5BWPy QSLtNWC1qJY5iL7meAew bjogbGVmdDsgdmVydGlj CPmyMViiO042PYHm qPslPADitJ7hAOLmqFAp aEuuVX3wTVVnebfuUnoN VVBLRSwgQkFSQkFSQSBF VJ70JC59sOSij4Z8 oHT4P9SuTHXcnmaaipzo sLA3KZXxCILknB36dFBe JGozEg9dj2X7s638OVRn IBBnxV78Rv9ztFjb EVJztOXBfT5ivbwrx9hx cfjcDtOyBJTbTTp3BIu8 HODeoWbhYfDaETW6LzT7 LVB3lIRnqN8moUoa valzbZ5bNgb+MDEvMjYv UUw5VqayrCJ+PHRkIHN0 tFmsMToiEKXsqP3fAEBl S1n9YwXkIgH3REsb W4FgIAYvlhjzBv11jD3n AcEaJcF3UXjfF5MxxaZ0 JMWwrIVnLMhoHWN5Q69f o8P2HDNdNZKyOBE0 iSO2iX1heBiyjicttNNe dDsgdmVydGljYWwtYWxp X997FZPvrUteJartXXho POUjGW15MW74gZNf i0V3mYX8F6BuRHHcsowc ltasaOZ9FZCxISIbvA88 oUUeHJxqXh9nw9U1w644 PDPvCLAfgM47Zh8g uKmlOIDlhJTGeN5gmfhd y4nxnqcjWfDfRKKxACg4 OCd2JBHdyMiyVsJsNMV3 UfR0IMG0nQRceB1u tPkvtxawjX3qGwx+RmVt AOebIC39YH89cJCvq7M2 vHC0Y6FhLCQdqsbawwvy sHX7EZNdOKDetW19 xCJzAEdeYm2qc1H5x953 KXNbIVTulC28Jf3jhWgm HZBefMGKiL6rvghqm3te cjogIzAwMDAwMDt0 DKc1RWFakHfvLiCoJZW7 JrV1QYA2hSCoxU2hoGwu axyseK4iSuh+FY1gtzpu ujK8ED38WV93Q2Ka PjwvdGFibGU+PHRhYmxl IHdpZHRoPScxMDAlJyBz kNykDY3mIe6dFWEnHNNd hNnpbWPbQyMvl9vl PVCeFNtaMR6umAorF7Pf sMC9RVIwx5d6Am73K17u S0SovJG+BIOtvPS9gLE5 oT2qFoVxXeD2PRai H979EuSlrOMeTrhxo1ng v5iyaEf7PaNqFVNnzaSn mUoxKQZ6b2QkGp03D34p IHdpZHRoPSIyMCUi FKSifZcoxk1vlR5ePf3+ PPRqxSL3tRW7lL2sEcFt QmK9AWevV705MzNoiVSp RuxxI19lP0KiyVN+ CWNaNpl1WVChvSgwYN7m nHVgDMgdNv4pAFL7TaKn GhKfLAvvF4OyOEVeadou yitjpYO5CYSyVETw bF53Ne7znBztJh9hHKCu UTV7WGDvnZGuI3HgfQ2m LpLrQUYtXWMqC4OdhHDe XOarE952LVauTuK0 ORTuckBuN2JcBBOazMut YzC5h1D7Ps5GuKfmxPBr CU5pHoJfEYe9H9IpCfq2 SMAijNhcTB2qoMXt VHttCa8xpAkstFjmYN2x QDXeduwsk951KdPxn4yp BIDtyYAxMSfuOYF0I65z e7S3IZSmWMBiBBF7 aNR5nI8dbZbtgefjuKSv dDsgdmVydGljYWwtYWxp W476DTRwdIwjAaZFGyn7 L3TuKro9MPLojJqa GD2iqWPrIOrySb0eqCgv rIdcQO3qAOJddukky278 DrJii0gkNDGklRXjEYzg UBH7M69pd7S6SVPp CBNtUIJ2nBQ7jL9lkGqb bjogbGVmdDsgdmVydGlj ZFrvLBrqC774IDKcdYyv Hm6AUru8V1QiScm4 BKHsxYlmRP3wjIGuDBbw Go6ibUxiyFbySJ1zPAZa cfejd657WaMij3yvNBPj aAQfQEbqOXI8Y04b w9Y1EDPyVGZcPJZ0eAW3 rJ1usEcpoxggfPGquNka wtNbwOgfQIcnIDoeW484 IHRvcDsnPlBheWVy OjwvdGQ+XG64tg16A1Wq DmjkSyh7CKNmOGL9eSR8 pO8aSYOoGInqm1C0eBG7 K4TjcuRkem8az3bl YXBz (more content not included)... [facility] Consent for Treatmenton 11-12 Consent for Treatment [id number] #1.00CD:127 [facility] Discharge Instructionson Discharge Instructions [id number] 1#1.00CD:127 [facility] ED Clinical Summaryon 2022 ED Clinical Summary [place] [id number] ED Clinical Summary Person Information Name: DARWIN HEART/[facility] Age: 82 Years : 1940 Sex: Female Language: Ethiopian PCP: JAVIER MARY DO Marital Status: Phone: [phone] Visit Id: Visit Reason: Lower leg pain-swelling; [...] 09:52:34 12/05/2022 09:52:34 ADDRESS: [address] [place] [id number] [facility] NOTES: MEDICAL INFORMATION: Prescriptions Given: [...] meals). fluticasone nasal (fluticasone 0.05 mg/inh Nasal Whitlash) 2 Sprays Nasal Inhalation every day. furosemide [...] Prevention; Deep Vein Thrombosis; Simms Cyst; Contusion, Pqgb-iu-Fsld; Bleeding Varicose Veins Follow up: With: Address: When: JAVIER MARY [address] [place] [address] Business (1) In 3 days 12/08/2022 DIAGNOSIS: 1:Contusion of left lower leg; 2:Varicose veins of lower limb [facility] ED Patient Education Noteon 12-05-2022 ED [...] veins using minimally invasive surgery (subfascial endoscopic urban gardening specialist vein surgery). This method may be used in advanced cases. Follow these instructions at home: Medicines ? Take and use eick-tdk-ykbvysm and prescription medicines and creams only as [...] ? Ch (more content not included)... [facility] ED Patient Summaryon 023 ED Patient Summary [place] [id number] Patient Discharge Instructions Person Information Name: DARWIN HEART Age: 82 Years Arrival Date: 12/05/2022 09:12:17 Discharge Diagnosis: 1:Contusion of left lower leg; 2:Varicose veins of lower limb Primary Care Physician: JAVIER MARY DO Provider Information Primary Provider: Advanced Director Of Quality Control:None The exam and treatment you received in the Emergency Department were for an urgent problem and are not intended as complete care. It is important that you follow up with a doctor, nurse practitioner, or physician?s him assistant for ongoing care. If your symptoms [...] Follow-up Instructions: With: Address: When: JAVIER MARY [address] [place], [place] [id number] [facility] () In 3 days 12/08/2022 In the event that this physician does not participate in your insurance network, please consult with your insurance company to find a nearby participating provider. Patient Education Materials: Venous Thromboembolism Prevention; Deep Vein Thrombosis; Simms Cyst; Contusion, Ocvx-py-Oear; Bleeding Varicose Veins A MESSAGE TO ALL PATIENTS REGARDING OPIOIDS PRESCRIPTION OPIOIDS: WHAT YOU NEED TO KNOW Prescription opioids can be used to help relieve vhyazhqf-vi-dzvske pain and are often prescribed following a [...] care professio (more content not included)... [facility] Coding Summary.on 11-16-2022 Coding Summary. [id number] Gh0bWw+PGhlYWQ+PE1FV YBkY18ojZSptL5FU4mRJ C1IPGMICIAZIM0BOL3xd GK9IMqqD6PxrnBe TxjvsZZmCC30QHj7CDZ5 gHnySMbdhF0txXMlR9s1 GxVfJA93iA93PIfeUWRe GcT3VhRzazavqUUl E6vsOjCarXYuVox+PHRh YmxlIHdpZHRoPScxMDAl AmIzzTtfTT1rIf9bVVOy LWNvbGxhcHNlOiBj w1vlIWWsVKaeNB1fnGpq Y5RmeTR8ECIvi6p3Ic21 dHI+IZUmBAF2yQdyTOyq i200PiBse1ppZXG4 eQLtRUymZHU0S56ho6Z2 MTAkAJXbZFU0jPL8bA7k zBuhztxpH8NbfVAjHsD4 XBK1aKWflT9jvKif bosecQ5hXbp+H24IQU5P WVETOG3MUzb2A5DqOful dHI+JL39SSVjHO66bAIm kPPru4yexHj7XvMz IMXiPXX6zOexCLhkm7Ch IMOiO27mdKYgd3H8MNFd bEzyuPVuQfCwaEI0oP0m MHzobsauz5xwaxwx Nwnmr0yrky99zS03G37r IDeoRTQvMEX6RNQcESSl mVduur6imU6cUw9+IDxj u0bbi3mcfKo7QuPl NSWttfMecFxkIAI8y1Ec Tv48V4CygChon5QwIxm5 yn34gRVaq0B0lVB5LIih FSXfhO5rPYssUbH1 OUNkHpBwlF16gVGmTIpu Rx9bvJrftNxtUF8dLMDd olqiYAHvgT7dQNLseWAy zIkkUG1pVGRpldtc f629QtVwSZP1CFEoqUPl Z7OxbC3jTtWnXFPiAZHo H1BytDFbBXspA324MYil HrS7RFJtlwOlD0Nz FFQvyDlaMkX9i3Z5Vx0S v5GaiydmCHF5BHenHIMe PbK4EyQrVyI1D2UpBcx5 GTVluZdlGV8hE2Pb HAEvsyaqetenrNP4HXRs SCWuiL84qUXnBFglSo2s x0Z5g273HAIeUPEknQ20 Ex9svAanEVEctQAH aS5ddfkcb4xvwurrNxAz RCKaNLa0RPx4YGQsgEpw BwQbZJC4NcI4BNS0pOAd gG6vnSpzybnyrQ8d Oyc+F03quS5gJIR3FYL1 nqtrNXXrkmIqIO30LJ79 I7ZvIcsifRJclPO+PGRp ygGfwDywJA1aZaIj s1jko1MtTVleM9DiBBXn OOqzDwe1PPImSYP6cMT9 sW5lTXAyESjnf0S9yNO5 X4AbyvSgas5xo8hx HWLuXIlgZ57lsSRrv1N7 YLDbvTA5MLVswReeIkQz xF94Rpk+UNHlwTwvj2So Chatr8lrw0xfnUt7 IjMwJSIgdmFsaWduPSJ0 b2AtTd74J97wYLutHVGk ETHxLIZdMGDwrUxqit2v rP1aRp0+PGNvbCB3 xCU6dR1vTWBwIwA5EJfo Q738VpBcpARlXmblv1jk t2bjaJv0LfVoEIMlkoQw cQxqDWK7z1FqNf69 B80vCAplIGWfDHVeQZRr XLWfeOglsw1olW4kDr2+ SP7dp0myxg83iQ80oOS+ OZQkSDG0bLcgAUkx KDFrhD1gNHhlNuN1FETb OtQuqQ36pPZeJElpMr0b zYdqrOmtXI9zGMSwykxj e205HdJgv3jwOEYt aZCzMIzfOPR7V86la8F2 TYRzACUkFHQ0ePT8rK8w bGlnbjogbGVmdDsgdmVy zAvzNSbeZCbrP395 IHRvcDsnPlBhdGllbnQg TzPaFZn3Y8MlOmj7OEGa lPfeZY1fnFIsMWgtZt5q bDdleNrbFF0kCZSi xhkvi995RhRxz5otDULo kTUjPHtxKFW1A39rl2C9 XJRbHCWpRJD6gCV5lG8r bGlnbjogbGVmdDsg tlAbhWzaBNfeRVwbJ755 IHRvcDsnPkJpcnRoIERh bNG9YJ04DX74dWYhv5D4 wIA2V5CqJXZzoixk izgtfVL1QFKiZLGtkM49 Xm1yeLkeYj7yNNOhHHV3 UKAboWNeS3RymW8hXqEg RYCcEINlS0EowXIx GKqvE425TOczWlW6CGRq fqTdZ8OgMHLmsCryPlT7 z5G8Oc2MG4N2HK22QA18 kYZgj5O5qTX4C6Sq VGVlwyhwrvcaxJS1MRVr MEVmrS11Zj4roHsxKg0u TQYkAWN1DURzhFGzL8Yg eR8vYmWwYATcVRNv U3KdhGPdPJbfR781KHek ZxV2POLunoCiW3ZcYCCc bQqyIkM8k4Q1Eb1JRZf0 YV26ZJ39tDTeg4F8 kEJ7J3GjYDCtfjgqdfcg sWN1FNReNGEsxZ04Op6s cMnjCj7qEASxNCG4TWHp zFPsD5RieH6rNxCd DHHlPKAwB8PikEVxGFtb I887SEdlFhQ5FXEijgXo C4LnVSWyqLbcJrF3y7I7 Rm3QHRYrGO52XQA2 dZY6JF25HT07R4NaTetp dGFibGU+PHRhYmxlIHdp ZHRoPScxMDAlJyBzdHls KR8sLc3fFDVrYIDc zYqxkRQjWyZwy8uoRAZa EHqmSE3ivAhkX0ChhRU4 PMAnr5e3Wb72C01gX1Go dXA+KBRjhHI2eCO4 lX4aArDbFbD1UOqjM744 UmLxhLMhNaqmm3qqf7bc eBv3PoY7SBUpjiFbhPuf UZZ4l8DpRq24O54f IHdpZHRoPSIxNSUiIHZh fCarab3zhO0yOb7+PGNv zDO3dXB4bE6gQqEbXcX0 HWgvG668WjKttOPh Luypx0dro0ascGs2MpJa UNKdtjLhgTigYWS1c5Ds Ps27I8YmxTeyv3IdRcn2 pe68wFUpl5K5jKH6 X0YlBWYstyvipJWcbMvz CO0mWQReklkuYTNrlN5p YKGvY5c3UiXgEaU7PDxt D4SnqwB7AGPicYOg ETloKEA9N79ps1H3NXHg PKVfDQV6dFZ2rZ6tsTmw bjogbGVmdDsgdmVydGlj UKahERstI068GJTm oZlnPGDidQ9xAYMxbCCb hOdyMR9dWKUlxfwyAecH VVBLRSwgQkFSQkFSQSBF OV51DC63pDIvc8X9 eAA8K1HlLGLmnfblbxac uUU5HGAxZEXudX43rQMg WNywAo5my8R6u081IPNj TPFzoU95Js9znCyp FXGeiVOXbP9gxqvqm1vc yxgvKzMzVJBeQSl7MSx4 QNUsrTnaXnLhVMY5MnH8 WAB7lXEvuK7wvQsq mtdwqZ5zHsk+MDEvMjYv MOe2PgmqcDB+PHRkIHN0 cYwmQCumCARgnG0fECEf H1e5GtUqQhW6FYnh H4RcBJVvtnjnUb64iA5s MoIfNlK0HQurJ3KuikI6 GODtjRSfQUmgVBN1Q12d h6S6GISjEODzZAU5 uCS8nK9snFgzbgptsWXg dDsgdmVydGljYWwtYWxp R618ZGOcaZdnInycRMcl CQFkSD32KM09bDFc s1N3aTG8Y5GdVEEtgczh mmmolYA2FSWnBQZfvS20 uSUqPNybTm9vo8T9b534 DPNbZWUveJ76Nx4c cIytQVAlyKYDgZ0fnrtj w1rixipmXuPrITVwNYu8 JIa4OCMmfKzlWbMrWKH3 HwJ8VTG3qMBsaM3x uChpptamxW4sDkr+RmVt WWxzUO69TR76yVTri6G7 mGV7O7ZwYCIgdutzvbtc wIA4HNBvKNTpwP92 hFGvPRmpOa9vv7R8z298 SXKpCWAvwX44Zm3gvStn CRCdxEIWxP9wsnumx8rr cjogIzAwMDAwMDt0 ERx1OPYutNriEiZyJXF7 WoP1ZFD0nBXsbR7vmGaq mjfsaT4mNbc+HM2dcdlt beO7OP09CB55L8Xl PjwvdGFibGU+PHRhYmxl IHdpZHRoPScxMDAlJyBz iEtwAR9uDi1dLITgQZEr rMangZAtPlUyt3qz APRdUBlySU1jtQulJ4Tz zNF7HTFhm7v2Yp20J95i I0RabCK+MAOjsBA7nQN5 wP2bIpZsQjD5PIcg J102RqAqcTRqGfuif2mq e2bczZn8OmKsPZUlmnNi jUjyEOO5e4EsAz17X90d IHdpZHRoPSIyMCUi BFJrbIfzru3wuT6zKh9+ MDRzlAK8gTX3iG3sRcJw QjJ0LKdhP656VtGtlFEr KxbtV31rE6SklOI+ RGMsFqr2NUVoxOvuOK9g iTGtDFasNe6aWXJ7JxJk VoSwCVitW0DbADYwhydh agvjpJX7LQEmRIYh aU92Pr2qiIjkXa8kAAFs QAM7OFZarQBxK3EyiM8o XeDlWOJoWNZqU5ExnTLz CPuiF359OKtbKqL0 HTIpfjPqY9IxWEWsiEyj GlG8s0K8Hb5UqAjdgFTi TQ4hGeOvVHa6J3FuGvh9 YLXbfRplJT2hvIWk UBdjGx4udKkjeZgcND7i FIFiggwhm275KhQqe2uj DUPqrFHuUDtmLLD0O08t s8U0NUZlLXZkFFQ5 gWN2oV6hbIfcsuvxlNNi dDsgdmVydGljYWwtYWxp A795UHHabJfnBzLNGmg9 Q4UbRyw5RYEcrQcn UE3jlSNnWNmkZv0xuFzu sWecHH4qGVCyogsms559 OyEtc5yrHXWicOGgTTfa SZQ1S56td6B8YBAt WBEqJBR1wOO1xO0ftAvx bjogbGVmdDsgdmVydGlj CEipZZvpI649TBStgYjt Vf5MWql8W8IxAsf6 QVQnlAvyOV2ugHHxYRhy Mq7mwHxefJbwSQ3pGURn trnhg399JwAai8jlTZJf tQNdJOzwYFG3C41p a4N2XJTlBBUhRIQ4zWH6 lP8cuDbvegjzsSYzhSew vwWeaPxtAWuxKRnoJ218 IHRvcDsnPlBheWVy OjwvdGQ+OG56sw85D9Et PizqVni1FTJxCVZ8jIT6 hY8jXBVqQBdwv3R6lOB5 A8VwdeZxsp3oj6tp YXBz (more content not included)... Normal [facility] Consent for Treatmenton Consent for Treatment [id number] #1.00CD:127 Normal [facility] Discharge Instructionson Discharge Instructions [id number] #1.00CD:127 Normal [facility] ED Clinical Summaryon 2022 ED Clinical Summary [place] [id number] ED Clinical Summary Person Information Name: DARWIN HEART [facility] Age: 82 Years : 1940 Sex: Female Language: Ethiopian PCP: JAVIER MARY DO Marital Status: Phone: [phone] Visit Id: Visit Reason: Hand pain-swelling; RIGHT [...] 11/12/2022 13:16:10 11/12/2022 13:16:10 [address] [place] [id number] PHYS DOC NOTES: MEDICAL INFORMATION: Prescriptions Given: Medications to Continue Taking That Have Changed [facility], [address], [place] [phone], [phone] START: cephalexin (Keflex 500 mg Cap) 1 [...] meals). fluticasone nasal (fluticasone 0.05 mg/inh Nasal Whitlash) 2 Sprays Nasal Inhalation every day. furosemide [...] Follow up: With: Address: When: JAVIER DRAPERGLES [address] [place], [place] [id number] Business (1) In 3 days 11/15/2022 DIAGNOSIS: Cellulitis; Wrist pain Normal [facility] ED Note-Physicianon 11-12-19 ED Note-Physician Basic [...] days, # 30 cap(s), Refills(s) 0, Pharmacy: [facility], 165, cm, 11/12/22 11:52:00 EST, Height/Length [...] 3 days 11/15/2022 EST [address], [facility] [address] [place] [address]- [facility] (1) Additional Instructions: Patient Education Cellulitis, Adult Attestation Patient seen and evaluated by the physician him assistant. Attending physician was present in the emergency department and supervised care. This visit was performed by both the physician and an APC. I performed all aspects of the MDM as documented. This report was transcribed using voice recognition software. Every effort was made to ensure accuracy, however, inadvertently computerized labeler mistakes may be present. Appropriate healthcare PPE [...] mg/inh N (more content not included)... Normal [facility] Comment on above: Result Comment: [...] these instructions at home: Medicines ? Take jxgn-arc-nrdahlp and prescription medicines only as told by [...] as antibiotic medicines or antihistamines. ? Take kgcd-fql-ohxvhji and prescription medicines only as told by [...] Reviewed: 02/16/2019 Elsevier Patient Education ? 2019 [employer]. Normal [facility] ED Patient Summaryon 023 ED Patient Summary [address] [address] Patient Discharge Instructions Person Information Name: DARWIN HEART Age: 82 Years Arrival Date: 11/12/2022 11:39:42 Discharge Diagnosis: Cellulitis; Wrist pain Primary Care Physician: JAVIER MARY DO Provider Information Primary Provider: Sanjeev Johnston DO Advanced Director Of Quality Control:Clyde Alas PA-C The exam and treatment you received in the Emergency Department were for an urgent problem and are not intended as complete care. It is important that you follow up with a doctor, nurse practitioner, or physician?s him assistant for ongoing care. If your symptoms [...] Follow-up Instructions: With: Address: When: JAVIER MARY [address] [place], [place] [id number] Business (1) In 3 days 11/15/2022 In the event that this physician does not participate in your insurance network, please consult with your insurance company to find a nearby participating provider. Patient Education Materials: Cellulitis, Adult A MESSAGE TO ALL PATIENTS REGARDING OPIOIDS PRESCRIPTION OPIOIDS: WHAT YOU NEED TO KNOW Prescription opioids can be used to help relieve wwamavjo-jj-gawayl pain and are often prescribed following a [...] be struggling with addiction, tell your health gericare aide and ask for guidance or call [facility] [address] [employer]pl[facility] at [phone]. [employer] Source: [place] (more content not included)... Normal [facility] XR Wrist 3+ Views Righton XR [...] calcifications. FINAL REPORT Dictated: 11/12/2022 12:53 pm uJanjo Wolf MD, V. Signed (Electronic Signature): 11/12/2022 12:53 pm Signed by: Juanjo Wolf MD, V. Transcribed by: JOLEEN Technologist: MOHAN [facility] Office Visit (Cardiology)on 10-20-2022 Follow-up [...] NEEDED. amLODIP (more content not included)... Normal [facility] Tobacco Screening.on 023 Adult depression screening assessment No [facility] 600 DO Work Phone: Fall risk assessment a) [facility] within the last [facility] Work Phone: Tobacco use status CP b) No [facility] 600 DO Work Phone: Coding Summary.on 10-01-2022 Coding Summary. [id number] Gh0bWw+PGhlYWQ+PE1FV AYbI14umRByhT5LI1fVF W9CVIPTTLEMBB6VWA6ur SG0ARpeC4QrzmFh IklmtFSeIN99PZv9FAW7 qNnvMShgnV8guCQxQ2l9 TlKbSR37bI17FYzkRIRx YyX2AtQelkujiJIf Q9zgTmHmeUXtGvx+PHRh YmxlIHdpZHRoPScxMDAl IzHldXqcMI2pOw7xAJWg LWNvbGxhcHNlOiBj s4odVERtNZnbYA9exDqu Q2JznIQ3LVRvl5b6Uu74 dHI+CXZfGJM6aDnnAUnp a084DwHts3lfNXV0 aBGlVZddTFU3Z76ee3S5 IZJtFBFoWIZ4oXW8vR3p oHysqhwyG3YsiFAaFdS6 NMV0zGLikO6hpLfg wcwgoV4lViv+Z25HMY9R BUPZBO1XFws9O5SuRipe dHI+SN44ZPIaFE04iSNj cVAfi4pqvCn9ThPv NIOyUJB0xHqrDTiga2Ic HRCyU28slKFhx0U3FJHq hEdsbZTaQwLxtTC7tU4p SSliviwhp6bmohnv Bltel4rtmi23dP17B95s MOpjXUKeRDN2YKHuCKCs bIbaao0ueB8eFj1+IDxj e8kmv1ndoYx3FkTo RJEwkdAesHovYUF5k7Nb Gy93D6RcbDsic8VqPib5 wp24cLYdk1Z5zGA3BSrq VJZfuJ3kWTlcRjR7 RYFiLkHvwA60sKVqKFxq Ps2jkQclpUzpNH8kJUZi gwijPLNmeF4qZEKzjIJt sAfxHN2yWVFzyewn d076YuTfCTP2FIGqnPUa G3TzdC2rBmQmFJDmOXTa G9EgqHNiHRkoQ565PBmw CeN6PLXdtrHbD5Kg JLOwnYitAyT9v9L5Fz1T n9LfvzckVMY5DRwkYDKn LsMiBqBcGzL5K8GcDgn4 YNLcaSauOV8fN6Qs ODHbikaiwgajhHO7HIIi OUYikA36pXKiWUfeWd4r e9A9c913AQPkIBRxyZ52 Dd1emLtySSAyySJF dI4efjdpc9ncscnvSbQo AWLzMGm4VLg7JNWqzZoy OwEpWZO9BqI4GCC2cAZy iC2ecOcdujfwuQ0y Oyc+G47irP8xLGY8XBO7 anjqVHPdbrPzPZ74QC73 J8QdJotzxINgvOV+PGRp ejPpmJyaMA5bBhJb a0bjs1TsGMbpC7ZjINMb HDfbZzr5ZVSpUJT3vGJ5 dL6oWMNvFKeij4T7rHJ0 F6XnuvSixj9rf8xd RVQyXTliU58bzQYxw4H0 NOJzxXC6RHDoiMjcLdNe qB64Jac+SWYfjGdkp0Aq Nhqqo4muw9scwMo1 IjMwJSIgdmFsaWduPSJ0 n0MwDi99I97kVPaoFNHl HGMqZZMdOXRvdVubps3e kC0vSq8+PGNvbCB3 zWV1hG1yLDRfDvT6NOkg W241HpIolWGrDvjxe4ob h4huaFq0JmFyALYkucXx wZgyZPW6t0VgBo79 Z80rWFksSOCuLAJoRQCp NFAhtOyfnl4swN7rRe7+ GS8fx2dksx06mZ13qLC+ FXCvHZF1fIoyARni OCMndO0uUOwdRuL1HSMg PkVleA28yMTlXUisHz9l zGrcwGboQR4cDIZlqans z982UqYxb7nrWKEm pKLrUXzvGCE0V21xl1J7 GONkSXWrBFI7pYU5cC6h bGlnbjogbGVmdDsgdmVy zIphGGwaLKfcI248 IHRvcDsnPlBhdGllbnQg YhRgXPc4O2VkLje3ESHw yRhuUN5qgJMrNWddNy3l yXzswVpgST6lJMPq aokyg114GwSwo5juVPHh dWChAEmvSPQ3M21ke1R6 EJLnWFAbRPA2jVK6oQ2z bGlnbjogbGVmdDsg fsJyuLewOMrkLSbyE276 IHRvcDsnPkJpcnRoIERh dKL6XK85FW25wHYtc9T2 kRE4M7XzMOQzounr znjiqLE9FTThKIZioI14 Mn8taFqgOr7pCYGeZXR5 PYNdzKAvI7LbwO5aYfPk XECfUXCkC2TxnZIs CGnuZ060VPysAeC2HCZc oaXkY4YoWEKmnKauJsJ7 h3S6Mw4RU6U0WO13QX68 cQZed2P1jIR0Y8Dd SPCoepxszrlyqCY3TAUs DKNasG02Hz2bcFgxHa0a LVOdAPE6GDUmsCExT9Nt lT6tQcDhFNHkTTEm S4QylPUwEZphE348FKqf YwA3ECCyrqKxL4XqKBXe wHssZrJ2f1F9Vb1OMZd9 CP07DS32yLHjh4K7 wAC1I6UbVXUsbbcbbtki lYM6WULhWMKuqZ57Dd8s aZpeIp6uGVWoNHG8BJIy wYGoQ0EqjK3rYdRj PURcSKBoU3DbnFEuYPcx K386ZHqjLgS9BXQhsuAi D8HzPJWdgNixCsU0i7U9 Ct9DYRAaJO85QTV0 dCC7RF17WF56J4QrImzc dGFibGU+PHRhYmxlIHdp ZHRoPScxMDAlJyBzdHls YJ3tJo1uYGGcTYAm aMfbgVOpOgVvk5jgJKZn NRleFE9xsEnbH7AybQE8 MRSnv1j8Dh85S53mO3Ln dXA+UJObsHV0kOB0 xL6fGyXkGwH2XVhiP436 KbQkiHGgJdhdz4qjt6xh mWj3TxT4XBGwnhVqfAux MPF3i3HfJy74U29y IHdpZHRoPSIxNSUiIHZh wReaet4okX6jKe0+PGNv mFO2kTH2nA6pKuBdJpI2 COpnC357GvDqhBPy Qqcqd1pvc6vepZj3VqXj QDNhnyRedUhkAKM9v2Lb Hw63K7ZhxQlqt5GfGly1 vz36cSUea6K1aHH8 J3BpHOIlzxyboYOzzNcr QH8rKDJizilbRWTirY0u OZTnO4x1UbXpAoE5UKdp E2RzmdS8WZVcyWUc WJjeXBH0E34xq4L6DFIw QKCmXUX3fEM2jH7liQhq bjogbGVmdDsgdmVydGlj GJtsXGksK898XZGa yQdmHKPnsJ8pJFVzmCEf eCyrPX4xWDRytlcgWolE VVBLRSwgQkFSQkFSQSBF AQ43XX95cUHqw4R3 rSF8P1GtMKFiigoakhjx sTN7EKFtQSVckZ33tTBg TDgcRy3ot1X2y487CUOc HJDjyW96Sq2cmYhi RXCywCJDjP4ureaog4bn dnkaMfQvVIYgAIe0KWo4 JCIvrTizTuVmHWV9NaZ7 EAU4cGWknK3ozJqu rkpwyK4lCkb+MDEvMjYv AJu7HbuwdGZ+PHRkIHN0 dXidRVmdRKLspC7vQZBc L9d6VaVjCuI4NZvd C7HxOSOkctkvHb66hN5l YoEuBeK1SVzdR9WzujB8 IJFzrGGbDDsuARV4B75m s4D2ALHbGDAfOYM3 kCB8yU3puEystaltqHIe dDsgdmVydGljYWwtYWxp N424XBMdaJxyRhi2RHmz YEAuBA01DS71xGIw k5B1fGY2I8LlKWVkpoma atuhcOL5OLKtDSEmoM10 cFQcKRqnRz1sz6T3y791 ENRsJQJftF86Mv8w gKcuFLFgmOFRgL7ckoyu a0rqfttaHyTpTYDmIHb9 HFv7FTIuzOkeJmWaQLE5 EnX1MBK9pTOqoE7g jAzcklzgwD7wSmg+RmVt TZriKV05LG59aYFzp1Y4 pHB8O7YnRNKmgdihpyns iYY4IJMgXMAbeO32 aBXcMFsjTv0kc3I2h228 EYIvIRPcxE76Lh4hpJdm ZXLidSDMeH2egaaph7qa cjogIzAwMDAwMDt0 JVx1MNBjdOdaMtTkJBF4 EqE2RPM3iBDoxW1tgXsz rjarmV6nLva+J2G7kXC4 aWVudDwvdGQ+PC90 ep17Y3VxCugoNma3MNXo DNE0fZY2eE4oHZEeHKkl j4D1rPO3H6QszbCxed8q w5nhPVRdLXqrZ47e wDAoy5E6EDGvfHH2XAYj yRgxCmBdnL12Bgv+PGNv rFjxu2NiDyuhi9xgs5fh qPo7BnSxEVYoukCw pRluMHW8s3LySq91C07e IHdpZHRoPSIzMCUiIHZh qMmldk7stD1gJm4+PGNv hTT3uES9zO8lQdLd JhJ1PPtaO018TaLydTOt Nwuhe0kro9ukuFp0FsOp MIAauwRltQrfTSZ6q5Ck Oi41B6SjmHsmh9Ur Auv4gx35gCAww0O3iEJ0 S2TdAYCgtrshmUXkaCki VE3uQQIjiwjgANGioH3r JPHtL6r0UaBfIyY8 BFuhH7FszuR4GKVbxIOj XVCtbHEWhS6svdxzc4je ebopMyIeUQZoUKf1KUn4 LWFsaWduOiBsZWZ0 TkP4JYO8jSPlvI2lwHls nzuakZ2eNik+EQg7m0vj lMAgIP4mwXT3HA47CL11 oXTlh8Z4mBD6X9Cu IQGqeppvkhrrdAE6EJXi FJAfdZ43Pg3paFcwQw3e LDEfFGJ2BOQgcEStE1Qd gT1jIaTpIKKsTAIf L5DusPGrLEhaQ468KAzw NfI2GWHkvcXnC9BzEVHr fZujCiQ1e4V3Xx1SXO68 XL60OT28jSUtn0S5 qQY6U4VrEUFiqpwttmfy nGG9FOBeHPCrqY96Kt9w pVcoIv7nFVFwUEY1SIVx uYDvB8LmwG1rYvYy FMMoXCLfE5NzgFNuZXxo R439KYnfCbL7FMNzboWm M5YzPKVlwBhcJdX6w1L9 Dl1HDb72MG90PA13 sEOzq6S5wSR1A2ZiZWRv jdybswvumLF6DBTvNRKz sE21Dx0wgKtnWd6oNPPy NVU6BXEgiBGiB6Rd pL7eNfOhCRWlPFXbM9Cl tSCyOTipC991PDpeKwW5 XWFpsuAfQ9XzVDGynAqj YoW7h0P4Wf3LEAyk fez0E8FzWebpnPA+PC90 QKLhYO44pMGkcATdx5sb tCk0PmHjNBJaANV5sCxd DMgmn9WkWIAjU43b bGFw (more content not included)... Normal [facility] John 09-28-2022 ALT No additional P-5'-P [Catalytic activity/Vol] 17 Int._Unit/L Normal 6-46 [facility] Comment on above: Performed By: #### 1 [id number], [id number], [id number], [id number] #### [facility] [address] [place] [address] Ryder 09-28-2022 AST [Catalytic activity/Vol] 18 Int._Unit/L Normal 5-43 [facility] Comment on above: Performed By: #### 1 [id number], 0345292, 4863378, 6661043 #### [facility] [address] [place] [address] BMPon 09-28-2022 Anion gap [Moles/Vol] 12 mmol/L Normal 6-16 [facility] Comment on above: Performed By: #### 1 [id number], 7636144, 5896686, 9137485 #### [facility] [address] [place] [address] Calcium [Mass/Vol] 10.0 mg/dL Normal 8.9-11.1 [facility] Comment on above: Performed By: #### 1 [id number], 8344067, 7913405, 1240197 #### [facility] [address] [place] [address] Chloride [Moles/Vol] 102 mmol/L Normal 101-111 [facility] Comment on above: Performed By: #### 1 [id number], 1119317, 9902773, 4631225 #### [facility] [address] [place] [address] CO2 [Moles/Vol] 30 mmol/L Normal 21-31 [facility] Comment on above: Performed By: #### 1 4353888, 4515943, 6841266, 7993487 #### [facility] [address] [place] [address] Creatinine [Mass/Vol] 1.0 mg/dL Normal 0.5-1.3 [facility] Comment on above: Performed By: #### 1 [id number], 0219766, 9855198, 3154364 #### [facility] [address] [place] [address] Glucose [Mass/Vol] 114 mg/dL Normal 55-199 [facility] Comment on above: Result Comment: If t his glucose result represents a fasting glucose, interpretation should refer to the following reference range: 55-99 mg/dL Performed By: #### 1 [id number], 1820577, 6741098, 0896331 #### [facility] [address] [place] [address] Potassium [Moles/Vol] 4.3 mmol/L Normal 3.5-5.3 [facility] Comment on above: Performed By: #### 1 1153177, 6809530, 7105966, 6187659 #### [facility] [address] [place] [address] Sodium [Moles/Vol] 140 mmol/L Normal 135-145 [facility] Comment on above: Performed By: #### 1 4754079, 1139711, 1464219, 9825273 #### [facility] [address] [place] [address] Urea nitrogen [Mass/Vol] 29 mg/dL High 5-21 [facility] Comment on above: Performed By: #### 1 0352051, 8340036, 9608175, 6121110 #### [facility] [address] [place] [address] Urea nitrogen/Creatinine [Mass ratio] 29 No Units High 10-20 [facility] Comment on above: Performed By: #### 1 [id number], 4106269, 9505094, 6077772 #### [facility] [address] [place] [address] CBC w/Indiceson 09-28-2022 Erythrocyte distribution width (RBC) [Ratio] 14.0 % Normal 10.9-14.2 [facility] Comment on above: Performed By: #### 1 1344943, 6052122, 7364219, 6636196 #### [facility] [address] [place] [address] Hematocrit (Bld) [Volume fraction] 39.9 % Normal 34.0-46.0 [facility] Comment on above: Performed By: #### 1 6136523, 4351824, 8379984, 3417728 #### [facility] [address] [place] [address] Hemoglobin (Bld) [Mass/Vol] 13.1 g/dL Normal 12.0-16.0 [facility] Comment on above: Performed By: #### 1 4495660, 6280574, 0346807, 1997684 #### [facility] [address] [place] [address] MCH (RBC) [Entitic mass] 29.6 pg Normal 27.0-34.0 [facility] Comment on above: Performed By: #### 1 4407560, 0275193, 8617487, 8542624 #### [facility] [address] [place] [address] MCHC (RBC) [Mass/Vol] 32.9 g/dL Normal 31.4-36.0 [facility] Comment on above: Performed By: #### 1 6855835, 3989123, 1540875, 6089672 #### [facility] [address] [place] [address] MCV (RBC) [Entitic vol] 90.0 fL Normal 80.0-100.0 [facility] Comment on above: Performed By: #### 1 7873461, 2392142, 7472921, 6983339 #### [facility] [address] [place] [address] Platelet mean volume (Bld) [Entitic vol] 7.7 fL Normal 6.4-10.8 [facility] Comment on above: Performed By: #### 1 [id number], 8984436, 3854804, 8023592 #### [facility] [address] [place] [address] Platelets (Bld) [#/Vol] 187.0 E9/L Normal 150.0-500.0 [facility] Comment on above: Performed By: #### 1 9779408, 1279743, 4519641, 4980277 #### [facility] [address] [place] [address] RBC (Bld) [#/Vol] 4.4 E12/L Normal 4.3-5.9 [facility] Comment on above: Performed By: #### 1 9796339, 5637202, 2388181, 8038009 #### [facility] [address] [place] [address] WBC corrected for nucl RBC Auto (Bld) [#/Vol] 7.2 E9/L Normal 4.0-11.0 [facility] Comment on above: Performed By: #### 1 0398016, 8610998, 8591358, 0110927 #### [facility] [address] [place] [address] CHEMISTRYOrdered By: SYSTEM SYSTEM on 09-28-2022 ALT [...] rate/Area] mL/min/1.73 m2 Normal >=59mL/min/1 .73 m2 [facility] Chem S GFR/1.73 sq M.predicted among non-blacks MDRD (S/P/Bld) [Vol rate/Area] 53 mL/min/1.73 m2 Low >=59mL/min/1 .73 m2 [facility] Chem S Glucose [Mass/Vol] 114 mg/dL Normal [...] Treatmenton 09-10 Consent for Treatment [id number] #1.00CD:127 Normal [facility] HEMATOLOGYOrdered By: Noelle Daly on 09-28-2022 [...] 7.2 E9/L Normal 4.0 - 11.0 E9/L [facility]eAutoSS Laboratory - Chemistry and C hemistry - challengeon 09-28-2022 Cholesterol [Mass/Vol] 92 mg/dL Normal <=129 [facility] 600 DO Work Phone: Cholesterol in LDL [Mass/Vol] 9 mg/dL Normal 7-40 [facility] 600 DO Work Phone: Laboratory - Chemistry and C hemistry - challengeOrdered By: SYSTEM SYSTEM on 09-28-2022 CO2 [Moles/Vol] 30 mmol/L Normal 21-31 [facility] Marino mack Laboratory - Hematology and Cell countsOrdered By: Noelle Daly on 09-28-2022 Erythrocyte distribution width (RBC) [Ratio] 14.0 % Normal 10.9-14.2 [facility] Hematocrit (Bld) [Volume fraction] 39.9 % Normal 34.0-46.0 [facility] S Platelet mean volume (Bld) [Entitic vol] 7.7 fL Normal 6.4-10.8 [facility] HemeAut oSS Lipid Panelon 09-28-2022 Cholesterol [Mass/Vol] 197 mg/dL Normal 120-200 [facility] Comment on above: Performed By: #### 1 [id number], 6067854, 0006212, 0545728 #### [facility] [address] [place] [address] Cholesterol in HDL [Mass/Vol] 91 mg/dL Invalid Interpretation Code [facility] Comment on above: Result Comment: HDL > or equal to 60 mg/dL: Low cardiovascular risk HDL < 40 mg/dL : High cardiovascular risk Performed By: #### 1 1254182, 2303462, 9510022, 3844205 #### [facility] [address] [place] [address] Cholesterol in LDL [Mass/Vol] 92 mg/dL Normal <=129 [facility] Comment on above: Performed By: #### 1 2652508, 0874116, 6049062, 5739750 #### [facility] [address] [place] [address] Cholesterol in VLDL [Mass/Vol] 9 mg/dL Normal 7-40 [facility] Comment on above: Performed By: #### 1 2199198, 1707945, 3297005, 6202071 #### [facility] [address] [place] [address] Triglyceride [Mass/Vol] 47 mg/dL Normal <=149 [facility] Comment on above: Performed By: #### 1 5803578, 5587155, 8374310, 0226047 #### [facility] [address] [place] [address] No Panel Informationon 09-28 187.0 {E9/L} Normal 150.0-500.0 [facility] 600 DO Work Phone: 90.0 fL Normal 80.0-100.0 [facility] 600 DO Work Phone: 32.9 {gm/dL} Normal 31.4-36.0 [facility] 600 DO Work Phone: 29.6 pg Normal 27.0-34.0 [facility] 600 DO Work Phone: 13.1 {gm/dL} Normal 12.0-16.0 [facility] 600 DO Work Phone: 4.4 {E12/L} Normal 4.3-5.9 [facility] 600 DO Work Phone: 7.2 {E9/L} Normal 4.0-11.0 [facility] 600 DO Work Phone: 12 {mEq/L} Normal 6-16 [facility] 600 DO Work Phone: 102 mmol/L Normal 101-111 [facility] 600 DO Work Phone: 4.3 mmol/L Normal 3.5-5.3 [facility] 600 DO Work Phone: 140 mmol/L Normal 135-145 [facility] DO Work Phone: 10.0 mg/dL Normal 8.9-11.1 [facility] 600 DO Work Phone: 29 {No_Units} above high threshold 10-20 [facility] 600 DO Work Phone: 1.0 mg/dL Normal 0.5-1.3 [facility] 600 DO Work Phone: 29 mg/dL above high threshold 5-21 [facility] DO Work Phone: 114 mg/dL Normal 55-199 [facility] 600 DO Work Phone: Comment on above: If this glucose resu lt represents a fasting glucose, interpretation should refer to the following reference range: 55-99 mg/dL >60 Normal >=59 [facility] 600 DO Work Phone: Comment on above: eGFR is race adjuste d. AA=. 53 {mL/min/1.73_m2} below low threshold >=59 [facility] 600 DO Work Phone: Comment on above: Chronic kidney disea se could be indicated at eGFR's of less than 60 mL/min/1.73m2. Kidney failure is indicated at less than 15 mL/min/1.73m2. 17 {Int._Unit/L} Normal 6-46 [facility] 600 DO Work Phone: 18 {Int._Unit/L} Normal 5-43 [facility] 600 DO Work Phone: 47 mg/dL Normal <=149 [place] [address] DO Work Phone: 91 mg/dL [facility] 600 DO Work Phone: Comment on above: HDL > or equal to 60 mg/dL: Low cardiovascular riskHDL < 40 mg/dL : High cardiovascular risk 197 mg/dL Normal 120-200 [facility] 600 DO Work Phone: Physician Orderon 09-28-2022 Physician Order [id number] #1.00CD:127 Normal [facility] eGFRon 09-28-2022 GFR/1.73 sq M.predicted among blacks MDRD (S/P/Bld) [Vol rate/Area] mL/min/{1.73_m2} Normal >=59 [facility] Comment on above: Order Comment: Order Added by Discern Expert. Result Comment: eGFR is race adjusted. AA=. Performed By: #### 1 [id number], 5794306, 1355844, 1010900 #### [facility] [address] [place] [address] GFR/1.73 sq M.predicted among non-blacks MDRD (S/P/Bld) [Vol rate/Area] 53 mL/min/1.73 m2 Low >=59 [facility] Comment on above: Order Comment: Order Added by Discern Expert. Result Comment: Senior Managing Director karl kidney disease could be indicated at eGFR's of less than 60 mL/min/1.73m2. Kidney failure is indicated at less than 15 mL/min/1.73m2. Performed By: #### 1 [id number], 3617637, 4693035, 9699669 #### [facility] [address] [place] [address] Tobacco Screening.on Adult depression screening assessment No [facility] 600 DO Work Phone: Fall risk assessment a) No falls within the last year [facility] 600 DO Work Phone: Tobacco use status CPHS b) No [facility] 600 DO Work Phone: A1C HEMOGLOBINon 03-16-2022 HbA1c (Bld) [Mass fraction] 5.2 % [employer] Other HbA1c (Bld) [Mass fraction]o n 03-16-2022 A1C HEMOGLOBIN [employer] Other Tobacco Screening.on Fall risk assessment a) No falls within the last year [facility] 600 DO Work Phone: Tobacco use status CPHS b) No [facility] 600 DO Work Phone: No Panel Informationon 10-29 25.0\S\25.0 Normal 22.0-30.0 [facility] 250 DO Work Phone: Comment on above: PERFORMED BY:[facility] [place], [place] [phone] MEDICAL DIRECTORROBERTO CARLOS MURILLO M.D. 102\S\102 Normal 95-114 [facility] 250 DO Work Phone: 4.2\S\4.2 Normal 3.5-5.1 [facility] DO Work Phone: 140\S\140 Normal 136-146 [facility] 250 DO Work Phone: Laboratory - Microbiology an d Antimicrobial susceptibilityon 10-27-2021 SARS-CoV-2 (COVID-19) RNA GISSEL+probe Ql (Unsp spec) [facility] 250 DO Work Phone: No Panel Informationon 10-27 Negative Normal Negative [place] [address] DO Work Phone: Comment on above: This is a duplicate Sharifa SARS Antigen (JAYMIE) result to be used for statistical tracking purpose only.PERFORMED BY:[facility] [place], [place] [phone] MEDICAL DIRECTORROBERTO CARLOS MURILLO M.D. Falls Risk Screeningon 10-14 Fall risk assessment a) No falls within the last year [facility] 250 DO Work Phone: Falls Risk Screeningon 09-24 Fall risk assessment b) One or more fall s in the last year [facility] 600 DO Work Phone: Tobacco use status CPHS b) No [facility] 600 DO Work Phone: A1C HEMOGLOBINon 09-15-2021 HbA1c (Bld) [Mass fraction] 5.6 % [employer] Other HbA1c (Bld) [Mass fraction]o n 09-15-2021 A1C HEMOGLOBIN [employer] Other CBC AUTO DIFFon 12-15-2018 Basophils #/vol (Bld) 0.0 103/ul Normal 0.0-0.1 [facility] Comment on above: Performed By: #### C BC ####[facility] [address] [place] [id number] [place] Basophils/100 WBC (Bld) 0.4 % Normal 0.2-2.0 [facility] Comment on above: Performed By: #### C BC ####[facility] [address] [place] [address] Bryanna Eosinophils #/vol (Bld) 0.1 103/ul Normal 0.0-0.7 [facility] Comment on above: Performed By: #### C BC ####[facility] [address] [place] [address] [place] Eosinophils/100 WBC (Bld) 0.7 % Critically low 0.9-7.0 [facility] Comment on above: Performed By: #### C BC ####[facility] [address] [place] [address] Bryanna Erythrocyte distribution width Ratio (RBC) 13.2 % Normal 11.0-15.0 [facility] Comment on above: Performed By: #### C BC ####[facility] [address] [place] [address] Bryanna Hematocrit Volume Fraction (Bld) 34.9 % Critically low 36.0-48.0 [facility] Comment on above: Performed By: #### C BC ####[facility] [address] [place] [address] Bryanna Hemoglobin mass conc (Bld) 11.4 g/dL Critically low 12.0-16.0 [facility] Comment on above: Performed By: #### C BC ####[facility] [address] [place] [address] Bryanna IG # 0.06 10e3/ul Critically high 0.00-0.03 [facility] Comment on above: Performed By: #### C BC ####[facility] [address] [place] [address] Bryanna IG % 0.6 % Critically high 0.0-0.5 [facility] Comment on above: Performed By: #### C BC ####[facility] [address] [place] [address] Bryanna Lymphocytes #/vol (Bld) 2.0 103/ul Normal 1.2-3.8 [facility] Comment on above: Performed By: #### C BC ####[facility] [address] [place], [place] [id number] Gould Lymphocytes/100 WBC (Bld) 18.9 % Critically low 20.5-60.0 [facility] Comment on above: Performed By: #### C BC ####[facility] [address] [place] [address] [place] MANUAL DIFF REQ NO Normal [facility] Comment on above: Performed By: #### C BC ####[facility] [address] [place] [address] Bryanna MCH Entitic mass (RBC) 30.2 pg Normal 26.7-34.0 [facility] Comment on above: Performed By: #### C BC ####[facility] [address] [place] [address] Bryanna MCHC mass conc (RBC) 32.7 g/dL Normal 29.9-35.2 [facility] Comment on above: Performed By: #### C BC ####[facility] [address] [place] [address] Bryanna MCV Entitic volume (RBC) 92.3 fL Normal 81.0-99.0 [facility] Comment on above: Performed By: #### C BC ####[facility] [address] [place] [address] Bryanna Monocytes #/vol (Bld) 0.9 103/ul Critically high 0.3-0.8 [facility] Comment on above: Performed By: #### C BC ####[facility] [address] [place], [place] [id number] Gould Monocytes/100 WBC (Bld) 8.3 % Normal 1.7-12.0 [facility] Comment on above: Performed By: #### C BC ####[facility] [address] [place] [address] Bryanna Neutrophils #/vol (Bld) 7.6 103/ul Critically high 1.4-6.5 [facility] Comment on above: Performed By: #### C BC ####[facility] [address] [place] Neutrophils/100 WBC (Bld) 71.1 % Normal 43.0-75.0 [facility] Comment on above: Performed By: #### C BC ####[facility] [address] [place] [address] [place] Platelet mean volume Entitic volume (Bld) 9.5 fL Normal 9.5-13.5 [facility] Comment on above: Performed By: #### C BC ####[facility] [address] [place] [address] Bryanna Platelets #/vol (Bld) 151 103/ul Normal 150-450 [facility] Comment on above: Performed By: #### C BC ####[facility] [address] [place] [address] Bry[place] RBC #/vol (Bld) 3.78 106/ul Critically low 4.20-5.40 [facility] Comment on above: Performed By: #### C BC ####[facility] [address] [place] [address] Bryanna WBC #/vol (Bld) 10.7 103/ul Normal 4.0-11.0 [facility] Comment on above: Performed By: #### C BC ####[facility] [address] [place] [address] Bryanna PROF CHEM 8 (BAS METB)on Anion gap molar conc 7.1 mmol/L Normal [facility] Comment on above: Performed By: #### B MP ####[facility] [address] [place] [address] [place]anna Calcium mass conc 9.5 mg/dL Normal 8.4-10.2 [facility] Comment on above: Performed By: #### B MP ####[facility] [address] [place] [address] [place] Chloride molar conc 109 mmol/L Critically high 98-107 [facility] [facility] Comment on above: Performed By: #### B MP ####[facility] [address] [address]Gerken Bryanna CO2 molar conc 30.0 mmol/L Normal 22.0-30.0 The [facility] Comment on above: Performed By: #### B MP ####[facility] [address] [id number] Bryanna Creatinine mass conc 0.93 mg/dL Normal 0.52-1.04 The [facility] Comment on above: Performed By: #### B MP ####[facility] By[address]maub[address] Bryanna EGFR-AF BELIZEAN >60 Normal >=60 The [facility] Comment on above: Performed By: #### B MP ####[facility] [address] [place] [address] Bryanna EGFR-NON AF BELIZEAN 59 mL/min/1.73m2 Critically low >=60 The [facility] Comment on above: Performed By: #### B MP ####[facility] [address] [place] [address] Bryanna Glucose mass conc 95 mg/dL Normal 74-106 The [facility] Comment on above: Performed By: #### B MP ####[facility] [address] [place] [address] Bryanna Potassium molar conc 4.1 mmol/L Normal 3.4-5.0 The [facility] Comment on above: Performed By: #### B MP ####[facility] [address] [address]Gerken Bryanna Sodium molar conc 142 mmol/L Normal 137-145 The [facility] Comment on above: Performed By: #### B MP ####[facility] K[address] Bryanna Urea nitrogen mass conc 18.0 mg/dL Critically high 7.0-17.0 The [facility] Comment on above: Performed By: #### B MP ####[facility] [address] [place], [place] [address]O[place]kex Karen Urea nitrogen/Creatinine mass ratio 19.4 mg/mg Normal The [facility] Comment on above: Performed By: #### B MP ####[facility] [address] [place], [place] [address]Jxmfqs Bryanna CBC AUTO DIFFon 12-14-2018 Basophils #/vol (Bld) 0.0 103/ul Normal 0.0-0.1 The [facility] Comment on above: Performed By: #### C BC #### [facility] [address] [id number] Marie Bryanna Basophils/100 WBC (Bld) 0.1 % Critically low 0.2-2.0 The [facility] Comment on above: Performed By: #### C BC #### [facility] [address] [place] [address] Marie Bryanna Eosinophils #/vol (Bld) 0.0 103/ul Normal 0.0-0.7 The [facility] Comment on above: Performed By: #### C BC #### [facility] [address] [place], [place] [id number] Marie Bryanna Eosinophils/100 WBC (Bld) 0.0 % Critically low 0.9-7.0 The [facility] Comment on above: Performed By: #### C BC #### [facility] [address] [place], [place] [id number] Mariejluis Gould Erythrocyte distribution width Ratio (RBC) 12.7 % Normal 11.0-15.0 The [facility] Comment on above: Performed By: #### C BC #### [facility] [address] [place], [place] [id number] Mariejluis Gould Hematocrit Volume Fraction (Bld) 37.3 % Normal 36.0-48.0 The [facility] Comment on above: Performed By: #### C BC #### [facility] [address] [place], [place] [id number] Mariejluis Gould Hemoglobin mass conc (Bld) 12.6 g/dL Normal 12.0-16.0 The [facility] Comment on above: Performed By: #### C BC #### [facility] [address] [id number] Marie Bryanna IG # 0.12 10e3/ul Critically high 0.00-0.03 [facility] Comment on above: Performed By: #### C BC #### [facility] [address] [address] Marie Bryanna IG % 0.7 % Critically high 0.0-0.5 [facility] Comment on above: Performed By: #### C BC #### [facility] [address] [place] [address] Marie Bryanna Lymphocytes #/vol (Bld) 1.0 103/ul Critically low 1.2-3.8 The [facility] Comment on above: Performed By: #### C BC #### [facility] [address] [place] [address] Marie Bryanna Lymphocytes/100 WBC (Bld) 5.9 % Critically low 20.5-60.0 The [facility] Comment on above: Performed By: #### C BC #### [facility] [address] [place], [place] [id number] Marie Gould MANUAL DIFF REQ NO Normal The [facility] Comment on above: Performed By: #### C BC #### [facility] [address] [place] [address] Mariejluis Gould MCH Entitic mass (RBC) 30.2 pg Normal 26.7-34.0 The [facility] Comment on above: Performed By: #### C BC #### [facility] [address] [place] [address] Mariejluis Gould MCHC mass conc (RBC) 33.8 g/dL Normal 29.9-35.2 The [facility] Comment on above: Performed By: #### C BC #### [facility] [address] [place] [address] Marie Bryanna MCV Entitic volume (RBC) 89.4 fL Normal 81.0-99.0 The [facility] Comment on above: Performed By: #### C BC #### [facility] [address] [place], [place] [address] Marie Bryanna Monocytes #/vol (Bld) 1.0 103/ul Critically high 0.3-0.8 The [facility] Comment on above: Performed By: #### C BC #### [facility] [address] [address] Marie Bryanna Monocytes/100 WBC (Bld) 6.3 % Normal 1.7-12.0 The [facility] Comment on above: Performed By: #### C BC #### [facility] [address] [place], [place] [address] Marie Bryanna Neutrophils #/vol (Bld) 14.1 103/ul Critically high 1.4-6.5 The [facility] Comment on above: Performed By: #### C BC #### [facility] [address] [place], [place] [address] Marie Bryanna Neutrophils/100 WBC (Bld) 87.0 % Critically high 43.0-75.0 The [facility] Comment on above: Performed By: #### C BC #### [facility] [address] [place], [place] [id number] Marie Bryanna Platelet mean volume Entitic volume (Bld) 9.6 fL Normal 9.5-13.5 The [facility] Comment on above: Performed By: #### C BC #### [facility] [address] [place], [place] [address] Marie Bryanna Platelets #/vol (Bld) 188 103/ul Normal 150-450 The [facility] Comment on above: Performed By: #### C BC #### [facility] [address] [place], [place] [address] Marie Bryanna RBC #/vol (Bld) 4.17 106/ul Critically low 4.20-5.40 The [facility] Comment on above: Performed By: #### C BC #### [facility] [address] [place], [place] [address] Marie Bryanna WBC #/vol (Bld) 16.2 103/ul Critically high 4.0-11.0 The [facility] Comment on above: Performed By: #### C BC #### [facility] [address] [phone] Mariejluis Yehen GLYCOHEMOGLOBIN A1Con 2018 Glucose mass conc 126 mg/dL Normal [facility] Comment on above: Performed By: #### A 1C #### [facility] [address] [address] Marie Bryanna Hemoglobin A1c/Hemoglobin.total mass fraction (Bld) 6.0 % Normal <=6.0 The [facility] Comment on above: Performed By: #### A 1C #### [facility] [address] [phone] Mariejluis Yehen PROF CHEM 8 (BAS METB)on Anion gap molar conc 10.8 mmol/L Normal The [facility] Comment on above: Performed By: #### B MP #### [facility] [address] [place], [place] [address] Marie Bryanna Calcium mass conc 9.6 mg/dL Normal 8.4-10.2 The [facility] Comment on above: Performed By: #### B MP #### [facility] [address] [phone] Marie Bryanna Chloride molar conc 106 mmol/L Normal 98-107 [facility] Comment on above: Performed By: #### B MP #### [facility] [address] [place], [place] [address] Marie Bryanna CO2 molar conc 27.3 mmol/L Normal 22.0-30.0 The [facility] Comment on above: Performed By: #### B MP #### [facility] [address] [phone] Marie Bryanna Creatinine mass conc 1.20 mg/dL Critically high 0.52-1.04 The [facility] Comment on above: Performed By: #### B MP #### [facility] [address] [address] Marie Bryanna EGFR-AF BELIZEAN 53 mL/min/1.73m2 Critically low >=60 The [facility] Comment on above: Performed By: #### B MP #### [facility] [address] [address] Marie Bryanna EGFR-NON AF BELIZEAN 44 mL/min/1.73m2 Critically low >=60 The [facility] Comment on above: Performed By: #### B MP #### [facility] [address] [phone] Marie Gould Glucose mass conc 151 mg/dL Critically high 74-106 Th [facility] Comment on above: Performed By: #### B MP #### [facility] [address] [address] Marie Gould Potassium molar conc 4.1 mmol/L Normal 3.4-5.0 The [facility] Comment on above: Performed By: #### B MP #### [facility] [address] [address] Marie Gould Sodium molar conc 140 mmol/L Normal 137-145 [facility] Comment on above: Performed By: #### B MP #### [facility] [address] [address] Marie Gould Urea nitrogen mass conc 25.0 mg/dL Critically high 7.0-17.0 The [facility] Comment on above: Performed By: #### B MP #### [facility] [address] [phone] Marie Gould Urea nitrogen/Creatinine mass ratio 20.8 mg/mg Normal The [facility] Comment on above: Performed By: #### B MP #### [facility] [address] [place] [address] Marie Gould XR HEEL LT 2Von 12-13-2018 XR HEEL LT 2V [address] [place], [place] [phone] Patient: [facility] Exam Date: 12/13/2018 : 1940 Gender:F Ordering : DR. DARVIN CortezPBridger Admission #: [id number] Family : Order #: [id number] CLICK HERE TO VIEW EXAM RADIOLOGY REPORT [...] M.D. on 12/13/2018 at 13:14 Normal The [facility] CBC AUTO DIFFon 12-06-2018 Basophils #/vol (Bld) 0.0 103/ul Normal 0.0-0.1 The [facility] Comment on above: Performed By: #### C BC #### [facility] [address] [place] [address] Marie Bryanna Basophils/100 WBC (Bld) 0.6 % Normal 0.2-2.0 The [facility] Comment on above: Performed By: #### C BC #### [facility] [address] [place] [address] Marie Bryanna Eosinophils #/vol (Bld) 0.1 103/ul Normal 0.0-0.7 The [facility] Comment on above: Performed By: #### C BC #### [facility] [address] [place] [address] Marie Bryanna Eosinophils/100 WBC (Bld) 1.1 % Normal 0.9-7.0 The [facility] Comment on above: Performed By: #### C BC #### [facility] [address] [place] [address] Mariejluis Gould Erythrocyte distribution width Ratio (RBC) 13.0 % Normal 11.0-15.0 The [facility] Comment on above: Performed By: #### C BC #### [facility] [address] [place] [address] Mariejluis Yehen Hematocrit Volume Fraction (Bld) 41.8 % Normal 36.0-48.0 The [facility] Comment on above: Performed By: #### C BC #### [facility] [address] [place], [place] [id number] Marie Gould Hemoglobin mass conc (Bld) 13.9 g/dL Normal 12.0-16.0 The [facility] Comment on above: Performed By: #### C BC #### [facility] [address] [place] [address] Marie Gould IG # 0.03 10e3/ul Normal 0.00-0.03 [facility] Comment on above: Performed By: #### C BC #### [facility] [address] [place] [address] Marie Gould IG % 0.5 % Normal 0.0-0.5 [facility] Comment on above: Performed By: #### C BC #### [facility] [address] [place] [address] Marie Gould Lymphocytes #/vol (Bld) 1.7 103/ul Normal 1.2-3.8 The [facility] Comment on above: Performed By: #### C BC #### [facility] [address] [place] [address] Marie Gould Lymphocytes/100 WBC (Bld) 26.4 % Normal 20.5-60.0 [facility] Comment on above: Performed By: #### C BC #### [facility] [address] [place] [address] Marie Gould MANUAL DIFF REQ NO Normal [facility] Comment on above: Performed By: #### C BC #### [facility] [address] [place] [address] Marie Gould MCH Entitic mass (RBC) 30.3 pg Normal 26.7-34.0 [facility] Comment on above: Performed By: #### C BC #### [facility] [address] [place] [address] Marie Gould MCHC mass conc (RBC) 33.3 g/dL Normal 29.9-35.2 The [facility] Comment on above: Performed By: #### C BC #### [facility] [address] [place] [address] Marie Gould MCV Entitic volume (RBC) 91.3 fL Normal 81.0-99.0 The [facility] Comment on above: Performed By: #### C BC #### [facility] [address] [place], [place] [address] Marie Bryanna Monocytes #/vol (Bld) 0.5 103/ul Normal 0.3-0.8 [facility] Comment on above: Performed By: #### C BC #### [facility] [address] [place], [place] [address] Marie Bryanna Monocytes/100 WBC (Bld) 7.4 % Normal 1.7-12.0 [facility] Comment on above: Performed By: #### C BC #### [facility] [address] [place], [place] [address] Marie Bryanna Neutrophils #/vol (Bld) 4.2 103/ul Normal 1.4-6.5 The [facility] Comment on above: Performed By: #### C BC #### [facility] [address] [phone] Marie Bryanna Neutrophils/100 WBC (Bld) 64.0 % Normal 43.0-75.0 The [facility] Comment on above: Performed By: #### C BC #### [facility] [address] [place], [place] [address] Marie Bryanna Platelet mean volume Entitic volume (Bld) 9.4 fL Critically low 9.5-13.5 The [facility] Comment on above: Performed By: #### C BC #### [facility] [address] [phone] Marie Bryanna Platelets #/vol (Bld) 182 103/ul Normal 150-450 The [facility] Comment on above: Performed By: #### C BC #### [facility] [address] [place], [place] [address] Marie Bryanna RBC #/vol (Bld) 4.58 106/ul Normal 4.20-5.40 The [facility] Comment on above: Performed By: #### C BC #### [facility] [address] [place], [place] [address] Marie Bryanna WBC #/vol (Bld) 6.6 103/ul Normal 4.0-11.0 The [facility] Comment on above: Performed By: #### C BC #### [facility] [address] [address] Marie Gould PROF CHEM 8 (BAS METB)on Anion gap molar conc 12.2 mmol/L Normal [facility] Comment on above: Performed By: #### B MP #### [facility] [address] [address] Marie Bryanna Calcium mass conc 10.2 mg/dL Normal 8.4-10.2 The [facility] Comment on above: Performed By: #### B MP #### [facility] [address] [address] Marie Bryanna Chloride molar conc 103 mmol/L Normal 98-107 [facility] Comment on above: Performed By: #### B MP #### [facility] [address] [place] [address] Marie Bryanna CO2 molar conc 31.7 mmol/L Critically high 22.0-30.0 The [facility] Comment on above: Performed By: #### B MP #### [facility] [address] [address] Marie Bryanna Creatinine mass conc 0.78 mg/dL Normal 0.52-1.04 The [facility] Comment on above: Performed By: #### B MP #### [facility] [address] [address] Marie Bryanna EGFR-AF BELIZEAN >60 Normal >=60 The [facility] Comment on above: Performed By: #### B MP #### [facility] [address] [address] Marie Bryanna EGFR-NON AF BELIZEAN >60 Normal >=60 The [facility] Comment on above: Performed By: #### B MP #### [facility] [address] [address] Marie Bryanna Glucose mass conc 103 mg/dL Normal 74-106 The [facility] Comment on above: Performed By: #### B MP #### [facility] [address] [address] Marie Bryanna Potassium molar conc 3.9 mmol/L Normal 3.4-5.0 [facility] Comment on above: Performed By: #### B MP #### [facility] [address] [place] [address] Marie Gould Sodium molar conc 143 mmol/L Normal 137-145 The [facility] Comment on above: Performed By: #### B MP #### [facility] [address] [place] [address] Mariejluis Gould Urea nitrogen mass conc 21.0 mg/dL Critically high 7.0-17.0 The [facility] Comment on above: Performed By: #### B MP #### [facility] [address] [place] [address] Mariejluis Gould Urea nitrogen/Creatinine mass ratio 26.9 mg/mg Normal [facility] Comment on above: Performed By: #### B MP #### [facility] [address] [place] [address] Mariejluis Gould PROTIMEon 12-06-2018 INR Coag RelTime (PPP) 1.01 {INR} Normal The [facility] Comment on above: Performed By: #### P T, PTT #### [facility] [address] [place] [address] Mariejluis Gould Prothrombin time (PT) Coag time (PPP) 10.4 s Normal 9.0-11.6 [facility] Comment on above: Performed By: #### P T, PTT #### [facility] [address] [place] [address] Marie Bryanna Prothrombin time (PT) Coag time (PPP) PLEASE NOTE: NORMAL RANGE CHANGE 06-28-2014 DUE TO REAGENT LOT CHANGE Normal The [facility] Comment on above: Performed By: #### P T, PTT #### [facility] [address] [place] [address] Marie Bryanna Prothrombin time (PT) Coag time (PPP) SEE BELOW Normal The [facility] Comment on above: Result Comment: KARLY RED INR: 2.0 - 3.0 CONDITIONS NOT LISTED BELOW 2.5 - 3.5 FOR PROSTHETIC HEART VALVE REPLACEMENT 2.5 - 3.5 RECURRENT THROMBOSIS Performed By: #### P T, PTT #### [facility] [address] [place], [place] [address] Marie Gould PTTon 12-06-2018 aPTT Coag time (Bld) PLEASE NOTE: NORMAL RANGE CHANGE 09-04-2015 DUE TO REAGENT LOT CHANGE Normal [facility] Comment on above: Performed By: #### P T, PTT #### [facility] [address] [place], [place] [address] Marie Gould aPTT Coag time (Bld) 30.5 s Normal 22.3-36.2 [facility] Comment on above: Performed By: #### P T, PTT #### [facility] [address] [place] [phone] Marie Gould XR ANKLE LT MIN 3 Von 2018 XR ANKLE LT MIN [address] [place] [id number] Patient: [facility] Exam Date: 11/18/2018 : 1940 Gender:F Ordering : DARVIN RobertBetty NOLASCOLYDIA Admission #: [id number] Family : Order #: [id number] CLICK HERE TO VIEW EXAM RADIOLOGY REPORT [...] Balderas M.D. on 11/18/2018 at 15:26 Normal [facility] XR FOOT LT MIN 3 VIEWSon XR FOOT LT MIN [address] [place] [id number] Patient: [facility] Exam Date: 11/18/2018 : 1940 Gender:F Ordering : DARVIN HUTCHINS Admission #: [id number] Family : Order #: [id number] CLICK HERE TO VIEW EXAM RADIOLOGY REPORT [...] Balderas M.D. on 11/18/2018 at 15:25 Normal [facility] Vital Signs Date Time Vital Sign Value Performing Clinician Facility 09-20-2023 16:00-0500 Body height 160.02 cm Javier Usman Other [facility] Other 09-20-2023 16:00-0500 Body mass index (BMI) [Ratio] 26.04 kg/m2 Javier Usman Other [facility] Other 09-20-2023 16:00-0500 Body temperature 97.9 [degF] Javier Usman Other [facility] Other 09-20-2023 16:00-0500 Body weight 66.68 kg Javier Usman Other [facility] Other 09-20-2023 16:00-0500 Diastolic blood pressure 70 mm[Hg] Javier Usman Other [facility] Other 09-20-2023 16:00-0500 Respiratory rate 20 /min Javier Usman Other [facility] Other 09-20-2023 16:00-0500 SaO2% (BldA) [Mass fraction] 99 % Javier Usman Other [facility] Other 09-20-2023 16:00-0500 Systolic blood pressure 140 mm[Hg] Javier Usman Other [facility] Other 06-21-2023 10:45-0400 Body height 160.02 cm Javier Usman Other [facility] Other 06-21-2023 10:45-0400 Body mass index (BMI) [Ratio] 24.8 kg/m2 Javier Usman Other [facility] Other 06-21-2023 10:45-0400 Body temperature 96 [degF] Javier Usman Other [facility] Other 06-21-2023 10:45-0400 Body weight 63.5 kg Javier Usman Other [facility] Other 06-21-2023 10:45-0400 Diastolic blood pressure 82 mm[Hg] Javier Usman Other [facility] Other 06-21-2023 10:45-0400 Respiratory rate 20 /min Javier Usman Other [facility] Other 06-21-2023 10:45-0400 SaO2% (BldA) [Mass fraction] 97 % Javier Usman Other [facility] Other 06-21-2023 10:45-0400 Systolic blood pressure 116 mm[Hg] Javier Usman Other [facility] Other 06-02-2023 09:33-0400 Body height 162.56 cm Javier M Usman Work Phone: [facility] [employer] 600 DO Work Phone: 06-02-2023 09:33-0400 Body mass index (BMI) [Ratio] 24.55 kg/m2 Javier M Usman Work Phone: [facility] 600 DO Work Phone: 06-02-2023 09:33-0400 Body surface area Derived from formula 1.7 m2 Javier M Usman Work Phone: [facility] [employer] 600 DO Work Phone: 06-02-2023 09:33-0400 Body weight 64.86 kg Javier M Usman [facility] Phone: [facility] 600 DO Work Phone: 06-02-2023 09:33-0400 Diastolic blood pressure 70 mm[Hg] Javier M Usman Work Phone: [facility] [employer] 600 DO Work Phone: 06-02-2023 09:33-0400 Heart rate 60 /min Javier M Usman Work Phone: [facility] 600 DO Work Phone: 06-02-2023 09:33-0400 Systolic blood pressure 136 mm[Hg] Javier M Usman Work Phone: [facility] [employer] 600 DO Work Phone: 05-10-2023 13:30-0400 Body height 160.02 cm Javier Usman Other [facility] Other 05-10-2023 13:30-0400 Body mass index (BMI) [Ratio] 25.51 kg/m2 Javier Usman Other [facility] Other 05-10-2023 13:30-0400 Body temperature 97.7 [degF] Javier Usman Other [facility] Other 05-10-2023 13:30-0400 Body weight 65.32 kg Javier Usman Other [employer] Other 05-10-2023 13:30-0400 Diastolic blood pressure 58 mm[Hg] Javier Usman Other [employer] Other 05-10-2023 13:30-0400 Respiratory rate 20 /min Javier Usman Other [employer] Other 05-10-2023 13:30-0400 SaO2% (BldA) [Mass fraction] 94 % Javier Usman Other [employer] Other 05-10-2023 13:30-0400 Systolic blood pressure 110 mm[Hg] Javier Usman Other [employer] Other 04-21-2023 16:30-0400 Body height 160.02 cm Javier Usman Other [employer] Other 04-21-2023 16:30-0400 Body mass index (BMI) [Ratio] 26.21 kg/m2 Javier Usman Other [employer] Other 04-21-2023 16:30-0400 Body temperature 98 [degF] Javier Usman Other [employer] Other 04-21-2023 16:30-0400 Body weight 67.13 kg Javier Usman Other [employer] Other 04-21-2023 16:30-0400 Diastolic blood pressure 62 mm[Hg] Javier Usman Other [employer] Other 04-21-2023 16:30-0400 Respiratory rate 20 /min Javier Usman Other [employer] Other 04-21-2023 16:30-0400 SaO2% (BldA) [Mass fraction] 97 % Javier Usman Other [employer] Other 04-21-2023 16:30-0400 Systolic blood pressure 108 mm[Hg] Javier Usman Other [employer] Other 02-17-2023 14:12-0400 Blood Pressure Location Paul Cannony [facility] 02-17-2023 14:12-0400 Diastolic blood pressure 71 mm[Hg] Paul Lingmariaelenay [facility] 02-17-2023 14:12-0400 Heart rate 65 /min Paul Lingurany [facility] 02-17-2023 14:12-0400 SaO2% (BldA) [Mass fraction] 97 % Paul Sushilurany [facility] 02-17-2023 14:12-0400 Systolic blood pressure 152 mm[Hg] Paul Mourany [facility] 02-17-2023 13:47-0400 Blood Pressure Location Paul Mourany [facility] 02-17-2023 13:47-0400 Diastolic blood pressure 73 mm[Hg] Paul Mourany [facility] 02-17-2023 13:47-0400 Heart rate 63 /min Paul Mourany [facility] 02-17-2023 13:47-0400 SaO2% (BldA) [Mass fraction] 95 % Paul Mourany [facility] 02-17-2023 13:47-0400 Systolic blood pressure 157 mm[Hg] Paul Mourany [facility] 02-17-2023 11:57-0400 Heart rate 58 /min Paul Mourany [facility] 02-17-2023 11:57-0400 SaO2% (BldA) [Mass fraction] 94 % Paul Mourany [facility] 02-17-2023 11:56-0400 Diastolic blood pressure 78 mm[Hg] Paul Mourany [facility] 02-17-2023 11:56-0400 Mean blood pressure 99 mm[Hg] Paul Mourany [facility] 02-17-2023 11:56-0400 Systolic blood pressure 142 mm[Hg] Paul Mourany [facility] 02-17-2023 11:56-0400 Body temperature 96.8 [degF] Paul Mourany [facility] 02-17-2023 11:54-0400 Respiratory rate 16 /min Paul Mourany [facility] 01-11-2023 13:40-0400 Diastolic blood pressure 81 mm[Hg] Paul Mourany [facility] [place] 01-11-2023 13:40-0400 Heart rate 71 /min Paul Lingurany [facility] [place] 01-11-2023 13:40-0400 SaO2% (BldA) [Mass fraction] 98 % Paul Lingurany [facility] [place] 01-11-2023 13:40-0400 Systolic blood pressure 158 mm[Hg] Paul Mourany [facility] [place] 01-04-2023 10:34-0400 Blood Pressure Location Paul Mourany [facility] [place] 01-04-2023 10:34-0400 Diastolic blood pressure 78 mm[Hg] Paul Lingurany [facility] [place] 01-04-2023 10:34-0400 Heart rate 69 /min Paul Lingurany [facility] [place] 01-04-2023 10:34-0400 SaO2% (BldA) [Mass fraction] 97 % Paul Lingurany [facility] [place] 01-04-2023 10:34-0400 Systolic blood pressure 147 mm[Hg] Paul Mourany [facility] [place] 12-28-2022 16:29-0400 Body temperature 98.42 [degF] Paul Puneet [facility] 12-28-2022 16:29-0400 Diastolic blood pressure 79 mm[Hg] Paul Puneet [facility] 12-28-2022 16:29-0400 Heart rate 81 /min Paul Puneet [facility] 12-28-2022 16:29-0400 Respiratory rate 18 /min Paul Teixeira [facility] 12-28-2022 16:29-0400 SaO2% (BldA) [Mass fraction] 99 % Paul Teixeira [facility] 12-28-2022 16:29-0400 Systolic blood pressure 151 mm[Hg] Paul Teixeira [facility] 11-30-2022 14:45-0500 Body height 160.02 cm Javier Usman Other [employer] Other 11-30-2022 14:45-0500 Body mass index (BMI) [Ratio] 26.92 kg/m2 Javier Usman Other [employer] Other 11-30-2022 14:45-0500 Body temperature 97.6 [degF] Javier Usman Other [employer] Other 11-30-2022 14:45-0500 Body weight 68.95 kg Javier Usman Other [employer] Other 11-30-2022 14:45-0500 Diastolic blood pressure 64 mm[Hg] Javier Usman Other [employer] Other 11-30-2022 14:45-0500 Respiratory rate 20 /min Javier Usman Other [employer] Other 11-30-2022 14:45-0500 SaO2% (BldA) [Mass fraction] 97 % Javier Usman Other [employer] Other 02-20-2023 14:45-0500 Systolic blood pressure 124 mm[Hg] Javier Usman Other [facility] [employer] Other 11-12-2022 11:47-0500 Body temperature 97.88 [degF] Sanjeev Johnston [facility] 11-12-2022 11:47-0500 Diastolic blood pressure 81 mm[Hg] Sajneev Preston [facility] 11-12-2022 11:47-0500 Heart rate 72 /min Sanjeev Johnston [facility] 11-12-2022 11:47-0500 Respiratory rate 19 /min Sanjeev Johnston [facility] 11-12-2022 11:47-0500 SaO2% (BldA) [Mass fraction] 97 % Sanjeev Johnston [facility] 11-12-2022 11:47-0500 Systolic blood pressure 153 mm[Hg] Sanjeev Johnston [facility] 10-20-2022 11:14-0500 Diastolic blood pressure 62 mm[Hg] Javier M Usman Work Phone: [facility] [employer] [address] [place] Work Phone: 10-20-2022 11:14-0500 Systolic blood pressure 135 mm[Hg] Javier M Usman Work Phone: [facility] [employer] [address] Work Phone: 10-20-2022 11:00-0500 Body height 162.56 cm Javier M Usman Work Phone: [facility] [employer] [address] Work Phone: 10-20-2022 11:00-0500 Body mass index (BMI) [Ratio] 25.23 kg/m2 Javier M Usman Work Phone: [facility] [address] [place] Work Phone: 10-20-2022 11:00-0500 Body surface area Derived from formula 1.72 m2 Javier M Usman Work Phone: [facility] [employer] [address] [place] Work Phone: 10-20-2022 11:00-0500 Body weight 66.68 kg Javier M Us[facility] Work Phone: 10-20-2022 11:00-0500 Heart rate 75 /min Javier M Usman [facility] Work Phone: 10-20-2022 11:00-0500 Systolic blood pressure 140 mm[Hg] Javier M Usman [facility]: [facility] Work Phone: 09-15-2022 11:45-0500 Body height 160.02 cm Javier Usman Other [employer] Other 09-15-2022 11:45-0500 Body mass index (BMI) [Ratio] 27.45 kg/m2 Javier Usman Other [employer] Other 09-15-2022 11:45-0500 Body temperature 98.5 [degF] Javier Usman Other [employer] Other 09-15-2022 11:45-0500 Body weight 70.31 kg Javier Usman Other [employer] Other 09-15-2022 11:45-0500 Diastolic blood pressure 60 mm[Hg] Javier Usman Other [facility] [employer] Other 09-15-2022 11:45-0500 Respiratory rate 20 /min Javier Drapergles Other [facility] [employer] Other 09-15-2022 11:45-0500 SaO2% (BldA) [Mass fraction] 97 % Javiervincent Baileyes Other [facility] [employer] Other 09-15-2022 11:45-0500 Systolic blood pressure 126 mm[Hg] Javier Drapergles Other [facility] [employer] Other 05-11-2022 08:50-0400 Body temperature 97.7 [degF] Paul Teixeira [facility] 05-11-2022 08:50-0400 Diastolic blood pressure 75 mm[Hg] Paul Teixeira [facility] 05-11-2022 08:50-0400 Heart rate 71 /min Paul Teixeira [facility] 05-11-2022 08:50-0400 Respiratory rate 18 /min Paul Teixeira [facility] 05-11-2022 08:50-0400 SaO2% (BldA) [Mass fraction] 96 % Paul Teixeira [facility] 05-11-2022 08:50-0400 Systolic blood pressure 154 mm[Hg] Paul Teixeira [facility] 04-08-2022 10:58-0400 Body height 165.1 cm Javier Laine Mary Work Phone: [facility] [address] DO Work Phone: 04-08-2022 10:58-0400 Body mass index (BMI) [Ratio] 26.46 kg/m2 Javier Laine [facility] Work [facility]: [facility] Work Phone: 04-08-2022 10:58-0400 Body surface area Derived from formula 1.79 m2 Javier M Usman Work Phone: [facility] [employer] [address] [place] Work Phone: 04-08-2022 10:58-0400 Body weight 72.12 kg Javier M Usman [facility] Work Phone: 04-08-2022 10:58-0400 Diastolic blood pressure 50 mm[Hg] Javier M Usman Work Phone: [facility] [employer] [address] [place] Work Phone: 04-08-2022 10:58-0400 Heart rate 64 /min Javier M Usman [facility] Work Phone: 04-08-2022 10:58-0400 Systolic blood pressure 104 mm[Hg] Javier M Usman Work [facility]: [facility] Work Phone: 03-16-2022 11:45-0400 Body height 160.02 cm Javier Usman Other [facility] [employer] Other 03-16-2022 11:45-0400 Body mass index (BMI) [Ratio] 29.23 kg/m2 Javier Usman Other [employer] Other 03-16-2022 11:45-0400 Body temperature 98.3 [degF] Javier Usman Other [employer] Other 03-16-2022 11:45-0400 Body weight 74.84 kg Javier Usman Other [employer] Other 03-16-2022 11:45-0400 Diastolic blood pressure 72 mm[Hg] Javier Usman Other [employer] Other 03-16-2022 11:45-0400 Respiratory rate 20 /min Javier Usman Other [employer] Other 03-16-2022 11:45-0400 SaO2% (BldA) [Mass fraction] 94 % Javier Usman Other [employer] Other 03-16-2022 11:45-0400 Systolic blood pressure 128 mm[Hg] Javier Usman Other [employer] Other 02-05-2022 12:15-0400 Body height 160.02 cm Javier Usman Other [employer] Other 02-05-2022 12:15-0400 Body mass index (BMI) [Ratio] 29.23 kg/m2 Javier Usman Other [employer] Other 02-05-2022 12:15-0400 Body temperature 98.7 [degF] Javier Usman Other [employer] Other 02-05-2022 12:15-0400 Body weight 74.84 kg Javier Usman Other [employer] Other 02-05-2022 12:15-0400 Diastolic blood pressure 62 mm[Hg] Javier Usman Other [employer] Other 02-05-2022 12:15-0400 Respiratory rate 20 /min Javier Usman Other [employer] Other 02-05-2022 12:15-0400 SaO2% (BldA) [Mass fraction] 95 % Javier Usman Other [employer] Other 02-05-2022 12:15-0400 Systolic blood pressure 122 mm[Hg] Javier Usman Other [employer] Other 01-31-2022 22:45-0400 Body temperature 98.6 [degF] Fletcher Livia [facility] 01-31-2022 22:45-0400 Diastolic blood pressure 68 mm[Hg] Fletcher Livia [facility] 01-31-2022 22:45-0400 Heart rate 80 /min Fletcher Livia [facility] 01-31-2022 22:45-0400 Mean blood pressure 87 mm[Hg] Fletcher Livia [facility] 01-31-2022 22:45-0400 Respiratory rate 17 /min Fletcher Livia [facility] 01-31-2022 22:45-0400 SaO2% (BldA) [Mass fraction] 99 % Fletcher Livia [facility] 01-31-2022 22:45-0400 Systolic blood pressure 125 mm[Hg] Fletcher Livia [facility] 01-31-2022 22:30-0400 Body temperature 98.24 [degF] Fletcher Livia [facility] 01-31-2022 22:30-0400 Diastolic blood pressure 80 mm[Hg] Fletcher Livia [facility] 01-31-2022 22:30-0400 Heart rate 76 /min Fletcher Livia [facility] 01-31-2022 22:30-0400 Mean blood pressure 93 mm[Hg] Fletcher Livia [facility] 01-31-2022 22:30-0400 Respiratory rate 18 /min Fletcher Livia [facility] 01-31-2022 22:30-0400 SaO2% (BldA) [Mass fraction] 97 % Fletcher Livia [facility] 01-31-2022 22:30-0400 Systolic blood pressure 120 mm[Hg] Fletcher Livia [facility] 01-31-2022 22:15-0400 Body temperature 98.6 [degF] Fletcher Livia [facility] 01-31-2022 22:15-0400 Diastolic blood pressure 86 mm[Hg] Fletcher Livia [facility] 01-31-2022 22:15-0400 Heart rate 79 /min Fletcher Livia [facility] 01-31-2022 22:15-0400 Mean blood pressure 102 mm[Hg] Fletcher Livia [facility] 01-31-2022 22:15-0400 Respiratory rate 17 /min Fletcher Livia [facility] 01-31-2022 22:15-0400 SaO2% (BldA) [Mass fraction] 99 % Fletcher Livia [facility] 01-31-2022 22:15-0400 Systolic blood pressure 135 mm[Hg] Fletcher Livia [facility] 11-18-2021 09:02-0500 Diastolic blood pressure 82 mm[Hg] Javier M Usman Work Phone: [facility] [address] DO Work Phone: 11-18-2021 09:02-0500 Systolic blood pressure 133 mm[Hg] Javier M Usman Work Phone: [facility] [address] DO Work Phone: 11-18-2021 08:34-0500 Body height 154.94 cm Javier M Usman Work Phone: [facility] 600 DO Work Phone: 11-18-2021 08:34-0500 Body mass index (BMI) [Ratio] 32.27 kg/m2 Javier M Usman Work Phone: [facility] 600 DO Work Phone: 11-18-2021 08:34-0500 Body surface area Derived from formula 1.77 m2 Javier M Usman Work Phone: [facility] 600 DO Work Phone: 11-18-2021 08:34-0500 Body weight 77.47 kg Javier M Usman Work Phone: [facility] [address] DO Work Phone: 11-18-2021 08:34-0500 Diastolic blood pressure 78 mm[Hg] Javier M Usman Work Phone: [facility] 600 DO Work Phone: 11-18-2021 08:34-0500 Heart rate 79 /min Javier M Usman Work Phone: [facility] 600 DO Work Phone: 11-18-2021 08:34-0500 Systolic blood pressure 146 mm[Hg] Javier M Usman Work Phone: [facility] 600 DO Work Phone: 10-14-2021 13:46-0500 Body height 162.56 cm Javier M Usman Work Phone: [facility] [address] DO Work Phone: 10-14-2021 13:46-0500 Body mass index (BMI) [Ratio] 28.87 kg/m2 Javier M Usman Work Phone: [facility] 250 DO Work Phone: 10-14-2021 13:46-0500 Body surface area Derived from formula 1.82 m2 Javier M Usman Work Phone: [facility] 250 DO Work Phone: 10-14-2021 13:46-0500 Body weight 76.3 kg Javier M Usman Work Phone: [facility] 250 DO Work Phone: 10-14-2021 13:46-0500 Diastolic blood pressure 82 mm[Hg] Javier M Usman Work Phone: [facility] 250 DO Work Phone: 10-14-2021 13:46-0500 Heart rate 87 /min Javier M Usman Work Phone: [facility] 250 DO Work Phone: 10-14-2021 13:46-0500 Systolic blood pressure 136 mm[Hg] Javier M Usman Work Phone: [facility] 250 DO Work Phone: 09-24-2021 11:44-0500 Body height 162.56 cm Javier M Usman Work Phone: [facility] 600 DO Work Phone: 09-24-2021 11:44-0500 Body mass index (BMI) [Ratio] 28.86 kg/m2 Javier M Usman Work Phone: [facility] 600 DO Work Phone: 09-24-2021 11:44-0500 Body surface area Derived from formula 1.82 m2 Javier M Usman Work Phone: [facility] 600 DO Work Phone: 09-24-2021 11:44-0500 Body weight 76.26 kg Javier M Usman Work Phone: [facility] 600 DO Work Phone: 09-24-2021 11:44-0500 Diastolic blood pressure 90 mm[Hg] Javier M Usman Work Phone: [facility] 600 DO Work Phone: 09-24-2021 11:44-0500 Heart rate 95 /min [facility] Work Phone: 09-24-2021 11:44-0500 Systolic blood pressure 143 mm[Hg] [facility] Work Phone: 09-15-2021 12:15-0500 Body height 160.02 cm Javier Usman Other [employer] Other 09-15-2021 12:15-0500 Body mass index (BMI) [Ratio] 30.47 kg/m2 Javier Usman Other [employer] Other 09-15-2021 12:15-0500 Body temperature 99.2 [degF] Javier Usman Other [employer] Other 09-15-2021 12:15-0500 Body weight 78.02 kg Javier Usman Other [employer] Other 09-15-2021 12:15-0500 Diastolic blood pressure 60 mm[Hg] Javier Usman Other [employer] Other 09-15-2021 12:15-0500 Respiratory rate 20 /min Javier Usman Other [employer] Other 09-15-2021 12:15-0500 SaO2% (BldA) [Mass fraction] 97 % Javier Usman Other [employer] Other 09-15-2021 12:15-0500 Systolic blood pressure 104 mm[Hg] Javier Usman Other [employer] Other 08-25-2021 13:00-0500 Body height 160.02 cm Aaron Norwood Other [employer] Other 08-25-2021 13:00-0500 Body mass index (BMI) [Ratio] 24.8 kg/m2 Aaron Norwood Other [employer] Other 08-25-2021 13:00-0500 Body temperature 98.4 [degF] Aaron Norwood Other [employer] Other 08-25-2021 13:00-0500 Body weight 63.5 kg Aaron Norwood Other [employer] Other 08-25-2021 13:00-0500 Diastolic blood pressure 80 mm[Hg] Aaron Españarer Other [employer] Other 08-25-2021 13:00-0500 SaO2% (BldA) [Mass fraction] 97 % Aaron Norwood Other [employer] Other 08-25-2021 13:00-0500 Systolic blood pressure 142 mm[Hg] Aaron Españarer Other [employer] Other 08-19-2021 12:30-0500 Body height 160.02 cm Eva Tantaylor Other [employer] Other 08-19-2021 12:30-0500 Body mass index (BMI) [Ratio] 24.8 kg/m2 Eva Tantaylor Other [employer] Other 08-19-2021 12:30-0500 Body temperature 97.6 [degF] Eva Tantaylor Other [employer] Other 08-19-2021 12:30-0500 Body weight 63.5 kg Eva Tantaylor Other [employer] Other 08-19-2021 12:30-0500 Diastolic blood pressure 70 mm[Hg] Eva Denisse Other [employer] Other 08-19-2021 12:30-0500 SaO2% (BldA) [Mass fraction] 97 % Eva Denisse Other [employer] Other 08-19-2021 12:30-0500 Systolic blood pressure 126 mm[Hg] Eva Salcedo Other [employer] Other Encounters Encounter Date Encounter Type Care Provider Facility Start: 09-20-2023 End: 09-20-2023 ambulatory Javier Usman Other [employer] Other Start: 09-20-2023 Office outpatient vi sit 25 minutes Javier Usman [facility] Start: 08-05-2023 End: 08-05-2023 ambulatory Javier Usman Other [employer] Other Start: 08-05-2023 Telephone encounter Javier Usman [facility] Start: 08-02-2023 End: 08-02-2023 ambulatory Javier Usman Other [employer] Other Start: 08-02-2023 Telephone encounter Javier Usman [facility] Start: 06-28-2023 End: 06-28-2023 ambulatory Javier Usman Other [employer] Other Start: 06-28-2023 Telephone encounter Javier Usman [facility] Start: 06-21-2023 End: 06-21-2023 ambulatory Javier Usman Other [employer] Other Start: 06-21-2023 Office outpatient vi sit 15 minutes Javier Usman [facility] Start: 06-17-2023 Chart Update Javier M Usman Work Phone: [facility] [address] [place] Work Phone: Start: 06-17-2023 Telephone encounter Javier Usman [facility] Start: 06-17-[address] Javier Mary Facility: Start: 06-17-2023 End: 06-18-2023 ambulatory Jones Rockwelli Facility:[facility] Start: 06-17-2023 End: 06-17-2023 Patient encounter procedure Jones Cuba [facility] Start: 06-05-2023 End: 06-06-2023 ambulatory Jones Rockwelli Facility:[facility] Start: 06-05-2023 End: 06-05-2023 Patient encounter procedure Jones Cuba [facility] Start: 06-02-2023 Office outpatient vi sit 25 minutes Javier M Usman Work Phone: [facility] 600 DO Work Phone: Start: 06-02-[address] Javier Mary Facility: Start: 05-10-2023 End: 05-10-2023 ambulatory Javier Usman Other [employer] Other Start: 05-10-2023 Office outpatient vi sit 15 minutes Javier Usman [facility] Start: 05-10-2023 Telephone encounter Javier Usman [facility] Start: 04-24-2023 End: 04-25-2023 ambulatory JAVIER M USMAN Facility:[facility] Start: 04-24-2023 End: 04-24-2023 Patient encounter procedure JAVIER M USMAN [facility] Start: 04-21-2023 End: 04-21-2023 ambulatory Javier Usman Other [employer] Other Start: 04-21-2023 Office outpatient vi sit 25 minutes Javier Usman [facility] Start: 04-21-2023 Telephone encounter Javier Usman [facility] Start: 04-06-2023 End: 04-06-2023 ambulatory Javier Usman Other [employer] Other Start: 04-06-2023 Telephone encounter Javier Usman [facility] Start: 04-02-2023 End: 04-03-2023 ambulatory Jes Wolff Facility:CD:[id number] Start: 04-02-2023 End: 04-02-2023 Off-Site [facility] Start: 03-23-2023 End: 03-24-2023 ambulatory Aaron HOLLIDAY Facility:CD:[id number] Start: 03-22-2023 End: 04-03-2023 ambulatory Aaron MARENGO Facility:[facility] Start: 03-22-2023 End: 04-03-2023 Evaluation and management of inpatient Aaron HOLLIDAY [facility] Start: 03-20-2023 End: 03-22-2023 ambulatory Jag CARVER Facility:[facility] Start: 03-01-2023 End: 03-02-2023 ambulatory Paul Gomez Facility:[facility] Start: 02-17-2023 End: 02-17-2023 ambulatory Paul Gomez Facility:[facility] Start: 02-17-2023 End: 02-17-2023 Admission to same day surgery center Paul Gomez [facility] Start: 01-20-2023 End: 01-20-2023 ambulatory Javier Usman Other [employer] Other Start: 01-20-2023 Telephone encounter Javier Usman [facility] Start: 01-11-2023 End: 01-12-2023 ambulatory Paul Gomez Facility:[facility] Start: 01-11-2023 End: 01-11-2023 Patient encounter procedure Paul Gomez [facility] Start: 01-05-2023 End: 01-05-2023 ambulatory Javier Usman Other [employer] Other Start: 01-05-2023 Telephone encounter Javier Usman [facility] Start: 01-04-2023 End: 01-05-2023 ambulatory Paul Gomez Facility:[facility] Start: 01-04-2023 End: 01-05-2023 ambulatory Paul Gomez Facility:[facility] Start: 01-04-2023 End: 01-04-2023 Lab Drop off Paul Gomez [facility] Start: 01-04-2023 End: 01-09-2023 Pre-admission assessment Paul Gomez [facility] Start: 01-04-2023 End: 01-04-2023 Patient encounter procedure Paul Gomez [facility] Start: 12-28-2022 End: 12-28-2022 Emergency department patient visit Paul Teixeira Facility:[facility] Start: 12-28-2022 End: 12-28-2022 Emergency department patient visit Paul Teixeira [facility] Start: 12-28-2022 End: 12-28-2022 ambulatory Javier Usman Other [employer] Other Start: 12-28-2022 Telephone encounter Javier Usman [facility] Start: 12-05-2022 End: 12-05-2022 Emergency department patient visit Bruno Dowell Facility:[facility] Start: 12-04-2022 End: 12-04-2022 ambulatory Javier Usman Other [employer] Other Start: 12-04-2022 Telephone encounter Javier Usman [facility] Start: 11-30-2022 End: 11-30-2022 ambulatory Javier Usman Other [employer] Other Start: 11-30-2022 Office outpatient vi sit 25 minutes Javier Usman [facility] Start: 11-30-2022 Telephone encounter Javier Usman [facility] Start: 11-17-2022 End: 11-17-2022 ambulatory Javier Usman Other [employer] Other Start: 11-17-2022 Telephone encounter Javier Usman [facility] Start: 11-12-2022 End: 11-12-2022 ambulatory Javier Usman Other [employer] Other Start: 11-12-2022 Telephone encounter Javier Usman [facility] Start: 11-12-2022 End: 11-12-2022 Emergency department patient visit Sanjeev Johnston Facility:[facility] Start: 11-12-2022 End: 11-12-2022 Emergency department patient visit Sanjeev Johnston [facility] Start: 10-29-2022 End: 10-29-2022 ambulatory Javier Usman Other [employer] Other Start: 10-29-2022 Telephone encounter Javier Usman [facility] Start: 10-21-2022 AUDIT Javier M Usman Work Phone: [facility] 250 DO Work Phone: Start: 10-20-2022 Office outpatient vi sit 25 minutes Javier M Usman Work Phone: [facility] [address] DO Work Phone: Start: 10-20-[address] Jones [place] Facility:[facility] Start: 10-05-2022 Chart Update Javier M Usman Work Phone: [facility] 600 DO Work Phone: Start: 09-28-2022 End: 09-29-2022 ambulatory Jones Cuba Facility:[facility] Start: 09-28-2022 End: 09-28-2022 Patient encounter procedure Jones Cuba [facility] Start: 09-15-2022 Rx Renewal Javier M Usman Work Phone: [facility] 250 DO Work Phone: Start: 09-15-2022 End: 09-15-2022 ambulatory Javier Usman Other [employer] Other Start: 09-15-2022 Office outpatient vi sit 25 minutes Javier Usman [facility] Start: 08-06-2022 Patient encounter procedure Javier M Usman Work Phone: [facility] 250 DO Work Phone: Start: 07-28-2022 End: 07-28-2022 ambulatory Javier Usman Other [employer] Other Start: 07-28-2022 Telephone encounter Javier Usman [facility] Start: 05-26-2022 End: 05-26-2022 ambulatory Javier Usman Other [employer] Other Start: 05-26-2022 Telephone encounter Javier Usman [facility] Start: 05-11-2022 End: 05-11-2022 Emergency department patient visit Paul Teixeira [facility] Start: 04-21-2022 End: 04-21-2022 ambulatory Javier Usman Other [employer] Other Start: 04-21-2022 Telephone encounter Javier Usman [facility] Start: 04-08-2022 Office outpatient vi sit 25 minutes Javier M Usman Work Phone: [facility] 600 DO Work Phone: Start: 03-16-2022 End: 03-16-2022 ambulatory Javier Usman Other [employer] Other Start: 03-16-2022 Patient encounter procedure Javier Usman [facility] Start: 03-16-2022 Telephone encounter Javier Usman [facility] Start: 02-05-2022 End: 02-05-2022 ambulatory Javier Usman Other [employer] Other Start: 02-05-2022 Office outpatient vi sit 15 minutes Javier Usman [facility] Start: 01-31-2022 End: 01-31-2022 Emergency department patient visit Fletcher Bhakta [facility] Start: 01-08-2022 End: 01-08-2022 ambulatory Javier Usman Other [employer] Other Start: 01-08-2022 Telephone encounter Javier Usman [facility] Start: 01-01-2022 End: 01-01-2022 ambulatory Javier Usman Other [employer] Other Start: 01-01-2022 Telephone encounter Javier Usman [facility] Start: 12-26-2021 End: 12-26-2021 ambulatory Javier Usman Other [employer] Other Start: 12-26-2021 Telephone encounter Javier Usman [facility] Start: 12-01-2021 End: 12-01-2021 ambulatory Javier Usman Other [employer] Other Start: 12-01-2021 Telephone encounter Javier Usman [facility] Start: 12-01-2021 Rx Renewal Javier M Usman Work Phone: [facility] 250 DO Work Phone: Start: 11-18-2021 Office outpatient vi sit 25 minutes Javier M Usman Work Phone: [facility] 600 DO Work Phone: Start: 10-29-2021 Chart Update Javier M Usman Work Phone: [facility] 250 DO Work Phone: Start: 10-29-2021 End: 10-29-2021 ambulatory Javier M. Usman Facility:[facility] Start: 10-15-2021 Telephone encounter Javier M Rug gles Work Phone: [facility] 250 DO Work Phone: Start: 09-24-2021 Office outpatient vi sit 25 minutes Javier M Usman Work Phone: [facility] 600 DO Work Phone: Start: 09-19-2021 Telephone encounter Javier Draper gles Work Phone: -[facility] 250A [place] Work Phone: Start: 09-18-2021 End: 09-18-2021 ambulatory Javier Usman Other [employer] Other Start: 09-18-2021 Telephone encounter Javier Usman [facility] Start: 09-16-2021 End: 09-16-2021 ambulatory Javier Usman Other [employer] Other Start: 09-16-2021 Telephone encounter Javier Usman [facility] Start: 09-15-2021 End: 09-15-2021 ambulatory Javier Usman Other [employer] Other Start: 09-15-2021 Office outpatient vi sit 25 minutes Javier Usman [facility] Start: 09-15-2021 Telephone encounter Javier Usman [facility] Start: 08-25-2021 End: 08-25-2021 ambulatory Aaron Norwood Other [employer] Other Start: 08-25-2021 Office outpatient vi sit 15 minutes Aaron Norwood [facility] V[facility] Surgery Start: 08-21-2021 End: 08-21-2021 ambulatory Eva Salcedo Other [employer] Other Start: 08-21-2021 Telephone encounter Eva Mason [employer] Start: 08-19-2021 End: 08-19-2021 ambulatory Eva Salcedo Other [employer] Other Start: 11-09-2021 Office outpatient vi sit 15 minutes Eva Salcedo [facility] Vascular Surgery Start: 12-13-2018 End: 12-19-2018 Patient encounter procedure JAVIER MARY Facility:[facility] Start: 12-08-2018 Encounter for preprocedural cardiovascular examination [facility] Start: 12-08-2018 Encounter for preprocedural laboratory examination [facility] Start: 12-06-2018 End: 12-07-2018 [facility] Start: 11-18-2018 End: 11-19-2018 Patient [facility] Encounter for preprocedural laboratory examination [facility] Patient encounter status Javier Mary Work Phone: [facility] 250 DO Work Phone: Procedures [...] Jones Cuba, Status: Pen, Time: 10:10 AM [facility] 600 DO Work Phone: Start: 04-08-2023 FUV, Provider: Jones Cuba, Status: Pen, Time: 11:10 AM FUV, Provider: Jones Cuba, Status: Pen, Time: 11:10 AM [facility] 600 DO Work Phone: Start: 04-01-2023 FUV, Provider: Jones Cuba, Status: Pen, Time: 11:10 AM FUV, Provider: Jones Cuba, Status: Pen, Time: 11:10 AM [facility] 250 DO Work Phone: Start: 10-20-2022 FUV, Provider: Jones Cuba, Status: Pen, Time: 11:00 AM FUV, Provider: Jones Cuba, Status: Pen, Time: 11:00 AM [facility] 600 DO Work Phone: Start: 04-08-2022 FUV, Provider: Jones Cuba, Status: Pen, Time: 10:30 AM FUV, Provider: Jones Cuba, Status: Pen, Time: 10:30 AM [facility] 600 DO Work Phone: Start: 11-18-2021 FUV, Provider: Jones Cuba, Status: Pen, Time: 8:50 AM FUV, Provider: Jones Cuba, Status: Pen, Time: 8:50 AM [facility] 250A [place] Work Phone: Start: 10-29-2021 SURGNONUH, Provider: Jones Cuba, Status: Pen, Time: 10:00 AM [facility], Provider: Jones Cuba, Status: Pen, Time: 10:00 AM [facility] 250 DO Work Phone: Start: 10-14-2021 EKG, Provider: SHIRA COREY LADLE REPAIRMAN 1,[id number], Status: Pen, Time: 1:30 PM EKG, Provider: SHIRA COREY LADLE REPAIRMAN 1,[id number], Status: Pen, Time: 1:30 PM [facility] 600 DO Work Phone: Start: 09-24-2021 FUV, Provider: Jones Cuba, Status: Pen, Time: 11:00 AM FUV, Provider: Jones Cuba, Status: Pen, Time: 11:00 AM [facility] 250A [place] Work Phone: Immunizations Immunization Date Immunization Notes Care Provider Magalis navarro 08-19-2023 influenza, injectabl e, quadrivalent, contains preservative Javier Usman Other [employer] Other 08-01-2022 influenza virus vaccine, unspecified formulation Paul Gomez [facility] 01-31-2022 tetanus toxoid, redu neal diphtheria toxoid, and acellular pertussis vaccine, adsorbed; Translations: [Boostrix (Tdap)] Fletcher Bhakta [facility] 07-24-2021 Do not use COVID-19 Pfizer 2 dose Javier Usman Other [facility] 07-24-2021 Fluzone High-Dose Quadrivalent 0.7 ML Intramuscular Suspension Prefilled Syringe Javier M Usman Work Phone: [facility] 600 DO Work Phone: 07-24-2021 influenza virus vaccine, unspecified formulation Paul Gomez [facility] 07-24-2021 influenza, injectabl e, quadrivalent, contains preservative Javier Usman Other [facility] [employer] Other 12-06-2020 Do not use COVID-19 Pfizer 2 dose Javier Usman Other [facility] Comment on above: Result Comment: 2022: [id number] 11-14-2020 Pfizer-BioNTech COVID-19 Vacc 30 MCG/0.3ML Intramuscular Suspension Javier M Usman Work Phone: [facility] 600 DO Work Phone: 11-13-2020 Do not use COVID-19 Pfizer 2 dose Javier Usman Other [facility] Comment on above: Result Comment: 2022: [id number] 08-11-2020 influenza virus vaccine, unspecified formulation Paul Gomez [facility] 08-11-2020 influenza, high dose seasonal, preservative-free Javier Jang Usman Work Phone: [facility] 600 DO Work Phone: 08-07-2020 influenza virus vaccine, unspecified formulation Paul Gomez [facility] 08-07-2020 influenza, injectabl e, quadrivalent, contains preservative Eva Ruttino Other [facility] [employer] Other 08-14-2019 pneumococcal polysaccharide vaccine, 23 valent Eva Ruttino Other [facility] 07-14-2019 influenza virus vaccine, unspecified formulation Paul Gomez [facility] 07-14-2019 influenza, injectabl e, quadrivalent, contains preservative Eva Ruttino Other [facility] [employer] Other 06-11-2019 influenza virus vaccine, unspecified formulation Javier Drapergles Work Phone: [facility] 06-22-2018 influenza virus vaccine, unspecified formulation Paul Gomez [facility] 06-22-2018 influenza, seasonal, injectable Eva Ruttino Other [facility] [employer] Other 06-11-2018 influenza virus vaccine, unspecified formulation Javier Drapergles Work Phone: [facility] 600 DO Work Phone: 08-11-2017 pneumococcal conjuga te vaccine, 13 valent Javier M Usman Work Phone: [facility] 600 DO Work Phone: 07-11-2017 influenza, high dose seasonal, preservative-free Javier M Usman Work Phone: [facility] 600 DO Work Phone: 07-09-2017 influenza, seasonal, injectable Eva Salcedo Other [facility] [employer] Other 07-09-2017 influenza virus vaccine, unspecified formulation Paul Mourany [facility] 08-15-2016 pneumococcal conjuga te vaccine, 13 valent Eva Salcedo Other [facility] 07-11-2016 influenza virus vaccine, unspecified formulation Javier M Usman Work Phone: [place] [address] DO Work Phone: 11-11-2015 influenza virus vaccine, unspecified formulation Paul Mourany [facility] 11-11-2015 influenza, injectabl e, quadrivalent, preservative free Javier M Usman Work Phone: [facility] 600 DO Work Phone: 11-11-2015 influenza, injectabl e, quadrivalent, contains preservative Eva Salcedo Other [facility] [employer] Other 09-04-2015 influenza virus vaccine, unspecified formulation Paul Mourany [facility] 09-04-2015 influenza, injectabl e, quadrivalent, preservative free Javier M Usman Work Phone: [place] [address] DO Work Phone: 09-04-2015 influenza, injectabl e, quadrivalent, contains preservative Eva Salcedo Other [facility] [employer] Other 07-11-2015 influenza virus vaccine, unspecified formulation Javier Mary Work Phone: -[facility] 600 DO Work Phone: Payers Date Payer Category Payer Private Health Insurance [id number] 2021 Medicare [id number] 2. [id number] 2021 Self-pay 1959 Medicare [id number] 1940 Unknown [id number] 2.16.84 0.1.403068.3.579.2.593 1942 Unknown [id number] 2.16.84 0.1.740836.3.579.2.593 1942 Unknown [id number] 2.16.84 0.1.479040.3.579.2.593 1942 Unknown [id number] 2.16.8 40.1.881984.3.579.2.727 1942 Unknown [id number] 2.16.8 40.1.848237.3.579.2.727 1942 Unknown [id number] 2.16.8 40.1.866469.3.579.2.727 1942 Unknown [id number] 2.16.8 40.1.680380.3.579.2.727 1942 Unknown [id number] 2.16.8 40.1.698248.3.579.2.727 1942 Unknown [id number] 2.16.8 40.1.839738.3.579.2.727 1942 Unknown [id number] 2.16.8 40.1.140744.3.579.2.727 1942 Unknown [id number] 2.16.8 40.1.154584.3.579.2.727 1942 Unknown [id number] 2.16.8 40.1.714949.3.579.2.727 1942 Unknown [id number] 2.16.8 40.1.653883.3.579.2.727 1942 Unknown [id number] 2.16.8 40.1.815894.3.579.2.727 1942 Unknown [id number] 2.16.8 40.1.449098.3.579.2.727 1942 Unknown [id number] 2.16.8 40.1.385118.3.579.2.727 1942 Unknown [id number] 2.16.8 40.1.951240.3.579.2.727 1942 Unknown [id number] 2.16.8 40.1.861089.3.579.2.727 1942 Unknown [id number] 2.16.8 40.1.494412.3.579.2.727 1942 Unknown [id number] 2.16. 840.1.247517.3.579.2.356 1942 Unknown [id number] 2.16. 840.1.182376.3.579.2.356 1942 Unknown [id number] 2.16. 840.1.381630.3.579.2.356 Medicare [id number] 2.1 6.840.1.359683.19 Unknown Unknown [id number] 2.16.8 40.1.116072.3.579.2.531 Social History Date Type Detail Facility Former smoker Former smoker [address] Work Phone: Comment on above: Quit over 20 years a go.; 1-2 cups coffee brendan y; Start: 04-04-2021 End: 01-04-2023 Tobacco smoking status Ex-smoker (finding) [facility] Sex Assigned At Female [facility] [employer] Other Tobacco [facility] Comment on above: denies Tobacco smoking status No Smoking Status Entered [facility] NEGATED: Highlighted row - - [facility] Work Phone: Functional Status Date Assessment Result Facility 02-17-2023 Functional Status N/A [facility] 01-04-2023 Functional Status N/A [facility] [place] 12-28-2022 Functional Status N/A [facility] 11-12-2022 Functional Status N/A [facility] 05-11-2022 Functional Status N/A [facility] NEGATED: Highlighted row Functional performance Functional status health issues are not documented Disease [facility] Work Phone: Mental Status Date Assessment Result Facility NEGATED: Highlighted row Cognitive function [Interpretation] Cognitive status health issues are not documented Disease [facility] Work Phone: Clinical Notes 08-25-2021 to [...] continue to follow-up with the vascular/vein specialist. [facility] [employer] Other 09-18-2023 Evaluation note* Encounter Date Diagnosis Assessment Notes Treatment Notes Treatment Clinical Notes Jun, Essential (primary) hypertension (ICD-10 - I10) [facility] [employer] Other 09-11-2023 Evaluation note* Encounter Date Diagnosis Assessment Notes Treatment Notes Treatment Clinical Notes Jun, Hematoma of left lower leg (ICD-10 - S80.12XA) Discussed with patient and son-in-law that I feel we will just simply continue to monitor as hematomas will be reabsorbed slowly by the body. I think we merely keep this well covered, to prevent any further bumping. Call with results. [employer] Other 09-07-2023 NoteEchocardiology Procedure Exam Date/Time Accession # Ordering Echo Transthoracic 06/17/2023 10:09 EDT [id number] Bereket GUILLEN, Jones Complete CPT code 52840 Reason for Exam (Echo Transthoracic Complete) I35.0 Report [facility] [address] [place] [address] Adult Echocardiogram Report Name: [facility] Study Date: 06/17/2023 09:16 AM BP: 148/68 mmHg Patient Location: [facility] HR: 55 : 1940 Gender: Female Height: 64 in Age: 82 yrs Ethnicity: [facility] Weight: 143 lb Reason For Study: I35.0 [...] Signed by: Ricardo Salamanca MD Transcribed by: [place] Technologist: [facility]07-31-2023 Evaluation note* Encounter Date Diagnosis Assessment Notes Treatment Notes Treatment Clinical Notes Apr, Skin tear of right hand without complication, initial encounter (ICD-10 - S61.411A) Patient and son-in-law are given some Vaseline gauze to use. Keep this area clean and dry. Monitor for healing. Call with any change. [employer] Other 07-15-2023 Evaluation + Plan note Diagnostic Tests Pending * Folate Level 04/24/23 * T3 Free 04/24/23 * Vitamin B12 Level 04/24/23 [facility]07-12-2023 Evaluation note* Encounter Date Diagnosis Assessment Notes [...] dose accordingly. They will call with results. [employer] Other 06-13-2023 NoteHOSPITAL REGULATIONS: All Positive and [...] unable to move. She was brought to [facility] where she is found to have [...] this fracture pattern. Kaitlyn Menard Dictated: 03/21/2023 [id number] Transcribed: 03/22/2023 cc:Javier Mary D.O.[facility] Hospital[facility] on above:Result Comment: Electronically Signed By: Marquise Mesa DO\.br\Date and Time Signed: 03/23/23 06:51 [id number] NoteDAILY PROGRESS NOTE: 03/22/2023 HISTORY: Chani is seen here today for repeat evaluation of her left hemipelvic fractures. She is doing okay, no new complaints, no new symptomatology. Physical therapy did work with her yesterday and ambulated six feet with a front-wheeled walker. She has three steps at home. Recommendation for halfway is made. Her examination here today reveals [...] from the periphery. 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 PCP, DME and insurance discussed. Patient is alert and involved in plan of care. Contact information provided and whiteboard updated. Pt's dtr will transport. Pt has been accepted to [facility], pending precert. No further needs. Ant dc TBD. CRM to follow. Precert came through. Pt will dc to room 603, now TCU.[facility] HospitalComment on above:Result Comment: Electronically Signed By: Luanne Maddox\.br\Date and Time Signed: 03/22/23 12:43 [id number] NotePT evaluation completed with an AM-PAC six [...] continue to follow daily and make appropriate recommendations.[facility]06-11-[facility] NoteChief Complaint Watering lawn and slipped on wet grass and fell. Denies feeling illl prior. (L) hip pain. Hit back on head on ground, no LOC. On Eliquis. Able to bear weight, but painful. History of Present Illness [id number] patient is a very pleasant active 82-year-old [...] the bedside suggest that Dr. Cuba the patrol mother with whom she had an appointment within [...] and superior pubic ramus fracture. The emergency glazing department supervisor orthopedic service was consulted and [...] kyphosis. scoliosis. Extremities: no (more content not included)...[facility] HospitalComment on above:Result Comment: Electronically Signed By: Jag CARVER DO.meme\Date and Time Signed: 03/21/23 03:47 [id number] Note [id number]:127[facility] 02-17-2023 Hospital Discharge instructions Patient Education [...] and water are not available, use hand dipper fish. ?Change your dressing as told by your [...] to take sponge baths. General instructions Take zded-guf-jnqvsxb and prescription medicines only as told by [...] dressing. Your wound opens up. Summary Take jbyb-cht-groojjt and prescription medicines only as told by [...] provider. Document Revised: 04/28/2022 Document Reviewed: 04/28/2022 ED01 Patient Education 2022 [employer]. Follow Up Care 01/13/2023 08:38:17 With:Paul Gomez Address: [facility] [place] [id number]- [phone] Business (1) When:02/27/2023 14:24:06 Comments:Call for followup appointment [facility]04-12-2023 Evaluation note* Encounter Date Diagnosis Assessment Notes Treatment Notes Treatment Clinical Notes Jan, Dysfunction of both eustachian tubes (ICD-10 - H69.83) [employer] Other 04-11-2023 Note [id number]:127[facility] 01-13-2023 NoteMicrobiology PROCEDURE: Wound Culture [R1] [...] Locations R1: This test was performed at: [facility], [address] [place] [address], [id number] , , IglbsmDetwiler Memorial HospitalComment on above:Performed By: #### [id number], [id number], [id number] #### [facility] [address] [place] [address] [id number] Hospital Discharge instructions Patient Education 01/11/2023 14:09:30 [...] ?Hypothyroidism. ?Polycystic ovarian syndrome (PCOS). ?Binge-eating disorder. ?Yanira syndrome. Taking certain medicines, such as steroids, [...] food choices, such as grocery stores and [employer] markets. What are the signs or symptoms? [...] and how much exercise you get. Take kxed-whw-gyuylsx and prescription medicines only as told by [...] 11/04/2005 Document Revised: 06/01/2019 Document Reviewed: 06/01/2019 ED01 Patient Education 2019 [employer]. [facility] [place] 03-20-2023 Hospital Discharge instructions Patient Education 12/28/2022 [...] Follow these instructions at home: Medicines Take raxc-dit-hfmtxte and prescription medicines only as told by [...] soap and water arenot available, use hand dipper fish. Check your abscess every day for signs [...] 07/07/2006 Document Revised: 01/18/2020 Document Reviewed: 11/10/2018 ED01 Patient Education 2020 [employer]. Follow Up Care 12/28/2022 16:23:36 With:Dae LANDAVERDE Address: [address], [facility] [address] [facility] [address] [place] [address]- Business (1) When:12/31/2022 16:44:46 Comments:Follow-up for evaluation and treatment of breast abscess With:JAVIER MARY Address: [address], [facility] [address] [place] [address]- Business (1) When:Within 3 Day(s) [facility]02-20-2023 Evaluation note* Encounter Date Diagnosis Assessment Notes [...] that she can only really use the hnxc-iss-ywfpzoe Coricidin. Call with results. Nov, Constipation, unspecified constipation type (ICD-10 - K59.00) Lengthy discussion with patient and daughter today that certainly she could try the yzfc-qmf-jiqsqkv Colace or the nycc-qxp-eystbrq MiraLAX, as this is something that they also purchased. I feel she would be best served by trying to take a half a cap every day Nov, Nasal congestion (ICD-10 - R09.81) Gqjz-vur-cmjglxp Coricidin is fine. Patient to call if no improvement seen. [employer] Other 02-20-2023 Evaluation note* Encounter Date Diagnosis Assessment Notes Treatment Notes Treatment Clinical Notes Nov, Pure hypercholestero lemia (ICD-10 - E78.00) Nov, Essential (primary) hypertension (ICD-10 - I10) [employer] Other 02-02-2023 Hospital Discharge instructions Patient Education [...] Follow these instructions at home: Medicines Take unyn-kgo-owffljl and prescription medicines only as told by [...] such as antibiotic medicines or antihistamines. Take ywcv-eaf-aqyooak and prescription medicines only as told by [...] 07/07/2006 Document Revised: 02/16/2019 Document Reviewed: 02/16/2019 ED01 Patient Education 2020 [employer]. Follow Up Care 11/12/2022 11:41:12 With:JAVIER MARY Address: [facility] [address] [address]- Business (1) When:11/15/2022 13:03:01 [facility]02-02-2023 Evaluation + Plan noteExtracted from: Title:ED Note Author:Clyde Alas PA-C te:11/12/22 Cellulitis (L03.90: Cellulit is, unspecified) Wrist pain (M25.539: Pain in unspecified wrist) Orders: cephalexin, 500 mg = 1 cap(s), Oral, TID, Take one capsule by mouth three times a day for ten days, # 30 cap(s), Refills(s) 0, Pharmacy: [phone], [phone], cm, 11/12/22 11:52:00 EST, Height/Length Dosing, 69, kg, 11/12/22 11:52:00 EST, Weight Dosing Splint Application Wrist XR Wrist 3+ Views Right [facility]12-06-2022 Evaluation note* Encounter Date Diagnosis Assessment Notes [...] and understanding. She will call with update. [employer] Other 10-18-2022 Evaluation note* Encounter Date Diagnosis Assessment Notes Treatment Notes Treatment Clinical Notes Jul, Essential (primary) hypertension (ICD-10 - I10) [employer] Other 08-01-2022 Evaluation + Plan noteExtracted from: [...] Right XR Knee Complete 4+ Views Right [facility]08-01-2022 Hospital Discharge instructions Patient Education 05/11/2022 10:39:55 [...] 07/07/2006 Document Revised: 11/23/2019 Document Reviewed: 10/20/2017 ED01 Patient Education 2020 [employer]. 05/11/2022 10:39:55 Simms Cyst Simms Cyst A [...] your health care provider. General instructions Take xjjw-gnj-srbdaol and prescription medicines only as told by [...] 09/27/2006 Document Revised: 02/09/2020 Document Reviewed: 02/09/2020 ED01 Patient Education 2020 [employer] Follow Up Care 05/11/2022 08:45:22 With:Marquise Mesa Address: [address] [place] [address]- Business (1) When:05/14/2022 10:10:58 With:JAVIER MARY Address: [address] [address] Business (1) When:Within 3 Day(s) [facility]06-06-2022 Evaluation note* Encounter Date Diagnosis Assessment Notes [...] if they are going to have the link and link knitting machine operator back shortly or if we should send her to the link and link knitting machine operator in [place]. We will contact patient/son-in-law with results. [facility] Other 04-28-2022 Evaluation note* Encounter Date Diagnosis Assessment Notes Treatment Notes Treatment Clinical Notes Jan, Laceration of right lower leg, initial encounter (ICD-10 - S81.811A) Pt to keep clean and dry - no bathing - shower only. [facility] Other 04-24-2022 Hospital Discharge instructions Patient Education [...] and water are not available, use hand dipper fish. ?Change your dressing as told by your [...] antibiotic even if your condition improves. Take kvsp-fvq-gctuugg and prescription medicines only as told by [...] 07/06/2009 Document Revised: 01/15/2020 Document Reviewed: 04/13/2017 ED01 Patient Education 2020 [employer]. 01/31/2022 22:44:56 Nonsutured Laceration Care Nonsutured Laceration [...] Infection. Slow healing. Supplies needed: Soap. Hand dipper fish. Sterile water or irrigation solution. Bandages (dressings). [...] and water are not available, use hand dipper fish. 2.Remove any dressing as told by your [...] these instructions at home: Take or apply gchd-snr-poawxgc and prescription medicines only as told by [...] 08/25/2007 Document Revised: 01/19/2020 Document Reviewed: 10/17/2018 ED01 Patient Education 2020 [employer]. Follow Up Care 01/31/2022 19:55:48 With:JAVIER USMAN Address: [facility] [address] [facility] [address] [place] [address]- Business (1) When:02/03/2022 [facility]03-24-2022 Evaluation note* Encounter Date Diagnosis Assessment Notes Treatment Notes Treatment Clinical Notes Dec, Essential (primary) hypertension (ICD-10 - I10) [facility] Other 12-06-2021 Evaluation note* Encounter Date Diagnosis [...] Ortho if she would like definitive review/removal? [facility] Other 11-15-2021 Evaluation note* Encounter Date Diagnosis [...] or call when she decides on treatment. [facility] Other Evaluation + Plan note No data available for this section [facility] Future Appointments Appointment Date:01/08/2023 09:15:00 AM Scheduled Provider: Location:.[facility] Appointment Type:MA Diagnostic (FT) Appointment Date:01/11/2023 01:40:00 PM Scheduled Provider:Paul Gomez MD Location:[facility] Appointment Type: Established 15 Future Scheduled Tests Radiology* MA Mamm Diag w/CAD if perf and 3D Robby 01/08/23 [facility] [place] Evaluation + Plan note Future Appointments Appointment Date:01/08/2023 09:15:00 AM Scheduled Provider: Location:.[facility] Appointment Type:MA Diagnostic (FT) Appointment Date:01/11/2023 01:40:00 PM Scheduled Provider:Paul Gomez MD Location:[facility] Appointment Type: Established 15 Diagnostic Tests Pending * Wound Culture 01/04/23 Future Scheduled Tests Radiology* MA Mamm Diag w/CAD if perf and 3D Robby [facility] App[facility]ments Appointment Date:01/11/2023 01:40:00 PM Scheduled Provider:Paul Gomez MD Location:[facility] Appointment Type:GS Established 15 [facility] Future Appointments Appointment Date:06/17/2023 09:00:00 AM Scheduled Provider: Location:.[facility] Appointment Type:CV Echo (FT) Future Scheduled Tests Radiology* Echo Transthoracic Complete 06/17/23 [facility] noteNo InformationN[facility] [employer] Other [facility] [employer] Other History general Narrative - Reported* Type [...] above Hospitalization History left hip surgery 06/2019 [facility] Other Hisgcon general Narrative - ReportedNortConcurrent [employer] Other Histcil general Narrative - Reported* Type Description Date [...] 06/2019 Hospitalization History Fracture of Pelvis 03/22 [facility] Other History of Present illness Narrative* Patient [...] and EKG with her and her son -[facility] 600 DO Work Phone: History of [...] and EKG with her and her son [facility] 600 DO Work Phone: History [...] to repeat her lab work as ordered -[facility] 600 DO Work Phone: History of Present [...] her we will consider repeating her echocardiogram [facility] 600 DO Work Phone: Hospital Discharge instructions No data available for this section [facility] No data available for this section [facility] Summary Purpose Family History Mother Name Dates [...] DATE CREATED AUTHOR AUTHOR'S ORGANIZ ATION 12/05/2020 [facility] DATE CREATED AUTHOR AUTHOR'S ORGANIZ ATION 11/14/2022 [facility] DATE CREATED AUTHOR AUTHOR'S ORGANIZ ATION 06/03/2023 [employer] DATE CREATED AUTHOR AUTHOR'S ORGANIZ ATION 06/18/2023 [facility] DATE CREATED AUTHOR AUTHOR'S ORGANIZ ATION 06/19/2023 [facility] REASON FOR VISIT (unrecogniz ed [...] lasixClinical Acute Illnessrefill vit d, amlodipinemed/allergy list [facility] Follow up, Due for Medicare Wellness- BK (patient is ok with medicare wellness), patient did see ENT-- was told nothing is structurally wrong with her ears, still waiting on link and link knitting machine operator appt.. and was wondering if she could [...] content) Personnel Name: JAVIER MARY DO Address: [address] [place] [address]- Name: Ivory Villanueva Personnel Name: JAVIER MARY DO Address: Address: [address] [place] [address]- Name: Ivory Villanueva Personnel Name: JAVIER MARY DO Address: Address: [address] [place] [address] Name: Ivory Villanueva Personnel Name: USMAN DO, JAVIER M Address: Address: [address] [place] [phone]- [place] Name: Ivory Villanueva Personnel Name: USMAN DO, JAVIER M Address: Address: [address] [place] [phone]- [place] Name: Ivory Villanueva Personnel Name: USMAN DO, JAVIER M Address: Address: [address] [place] [phone]- [place] Name: Ivory Villanueva Personnel Name: USMAN DO, JAVIER M Address: Address: [address] [place] [phone]- [place] Name: Ivory Vilalnueva Personnel Name: USMAN DO, JAVIER M Address: Address: [address] [place] [address]- [place] Name: Ivory Villanueva Personnel Name: USMAN DO, JAVIER M Address: Address: [address] [place] [address]- [place] Name: Ivory Villanueva Personnel Name: USMAN DO, JAVIER M Address: Address: [address] [place] [phone]- [place] Name: Ivory Villanueva Personnel Name: USMAN DO, JAVIER M Address: Address: [address] [place] [address]- [place] Name: Ivory Villanueva Personnel Name: USMAN DO, JAVIER M Address: Address: [address] [place] [phone]- [place] Name: Ivory Villanueva Personnel Name: USMAN DO, JAVIER M Address: Address: [address] [place] [address]- [place] Name: Ivory Villanueva Personnel Name: USMAN DO, JAVIER M Address: Address: [address] [place] [address]- [place] Name: Ivory Villanueva FOR RECORDS PERTAINING [...] BE BASED ON THE PRIMARY CLINICAL RECORDS. [facility]. provides no warranty or guarantee of the accuracy or completeness of information in this document.
--- NOTE | 2023-10-28 14:22 | VEIN_ITS ---
The [address] [address] Patient Name: DARWIN ESPINO MRN: [id number] date: 1940 Sex: F Assigned Patient Location: Current Patient Location: Accession/Order Number: [id number] Exam Date: 10/28/2023 14:22 Report Date: 10/28/2023 15:19 At the request of: MC MADDEN Procedure: VC INJ Foam Sclerosant WUS ALUMINUM SIDING MECHANIC PROCEDURE: VC INJ Foam Sclerosant WUS ALUMINUM SIDING MECHANIC, left leg COMPARISON: None. 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 Ultrasound-guided microfoam chemical ablation with Varithenaregistered 2. Intraoperative ultrasound guidance Anesthesia: None Indications for Procedure: 82-year-old female who presents with a long history of lower extremity pain and swelling culminating in extensive varicosities in the sentence stating subcutaneous edema. The patient failed conservative medical therapy including medical compression stockings, exercise and analgesics. Prior procedures include endovenous laser ablation and Microfoam chemical ablation. Multiple incompetent varicosities of the left leg. Duplex scan showed reflux and enlarged diameters up to 5 mm. The patient underwent informed consent including management options where the complications of infection, bleeding, pain, and skin injury were discussed. Particular attention was spent discussing thrombus extension and deep vein thrombosis as well as the possibility of pulmonary embolus and treatment with oral or injectable blood thinners. Procedure: The patient walked to the procedure room. All applicable staff donned appropriate apparel. A procedure timeout was performed to confirm correct patient, correct extremity, correct procedure, and correct room set-up including presence of all applicable supplies, devices, and drugs. A duplex ultrasound, performed by myself confirmed the location and incompetence of branch saphenous varicosities and their course was marked on the skin together with the dilated tributaries. The extent of treatment of the vein and the associated varicosities was determined through ultrasound mapping. The skin was prepped and then punctured with a butterfly needle and advanced under ultrasound guidance. The Varithenaregistered canister was activated and the canister was primed and purged as required in the instructions for use. Varithenaregistered was drawn into a sterile syringe. The following injections were made: 6 cc injected into a 5 mm varicose vein right lateral mid lower leg 4 cc injected into a 4 mm varicose vein right posterior proximal calf 2 cc injected into a 3 mm varicose vein right posterior mid to distal calf Varithenaregistered was slowly administered at 0.5-1.0 cc/second with close observation by ultrasound of its course in the vessels. Total volume utilized was: 12 cc. Following administration of Varithenaregistered the leg was elevated and the patient was asked to repeatedly dorsiflex the ankle to limit flow of Varithenaregistered into perforating veins. Once appropriate spasm had been confirmed in the treated veins, the vascular catheter was removed from the leg and light pressure was applied over the puncture site for hemostasis. The common femoral and deep superficial veins were then evaluated for flow and compressibility prior to dressing placement. The lower extremity was kept elevated at 45 degrees above the horizontal and cording material was applied over the saphenous segments and tributaries to allow for eccentric compression over the target vessels including the targeted saphenous vein(s). A multilayer dressing was applied consisting of foam pads, coban and thigh-high 20-30 mm Hg compression elastic support hose were placed on the patient. The leg was lowered only after compression had been applied and the patient was immediately ambulatory. The patient ambulated 10 minutes under supervision and was without apparent concerns at time of release. Post-care instructions include advising patient to keep post-treatment bandages in place and dry for 48 hours, avoid extended periods of inactivity, avoid heavy exercise for one week, wear compression stockings on the treated leg continuously for two weeks, to walk daily for 10 minutes over the next month. The patient was instructed to take an anti-inflammatory medicine as needed and to follow up for color duplex scan of the Saphenous veins, the treated branch saphenous varicosities, the adjacent deep veins, and additional treatment within 7 days. PERSONNEL: Gillian Rowley RN Electronically authenticated by: MC MADDEN Date: 10/28/2023 15:19
--- OUTSIDE RECORDS SUMMARY | 2023-10-28 14:26 | XMS_ITS | CCD ---
Author Name Unknown Address [address] [place] [address] Organization [facility] Care Team Providers Care Air Vice Marshal Name Role Phone DARVIN HUTCHINS Admitting Unavailable [...] Consulting Unavailable Shadi Maryh M Unavailable Unavailable [id number], Basar Unavailable Un available Traboulssi, Mourhaf Unavailable Unavailable zz-Sareyyupoglu, Basar Unavailable Unavailab le Javier Mary M Unavailable Unavailable Unavailable SHADI MARYH M Primary Care Physician [phone] Ivory Villanueva Unavailable Unavailable Eva Salcedo Unavailable [...] Ampicillin; Translations: [ampicillin] Drug Allergy anaphylaxis [facility] (1 source) Ciprofloxacin Drug Allergy [facility] (2 sources) Dicyclomine; Translations: [dicyclomine] Drug Allergy [facility] (1 source) Iodine (And Iodine Containting Drugs) Drug allergy (disorder) [facility] (2 sources) traMADol; Translations: [traMADol] Drug Allergy [facility] (20 sources) Erythromycin; Translations: [erythromycin] Drug Allergy Flushing (disorder) [facility] Work Phone: (20 sources) Ampicillin; Translations: [ampicillin] Drug Allergy Blushing, function (observable entity), anaphylaxis [facility] Other (20 sources) Ciprofloxacin; Translations: [Cipro] Drug Allergy Hallucinations [facility] Other (18 sources) Acetaminophen / oxyCODONE; Translations: [acetaminophen-o xycodone] Drug Allergy paranoid and hauucinated, Hallucinations, Psychosis [facility] (20 sources) Dicyclomine; Translations: [dicyclomine] Drug Allergy Unknown (qualifier value) [facility] Other (20 sources) traMADol; Translations: [tramadol] Drug Allergy Hallucinations (finding) [facility] Other (20 sources) Azithromycin; Translations: [azithromycin] Drug Allergy vomiting [facility] [employer] Other (20 sources) CT Scan dye Propensity to adverse reactions Unknown [facility] Other (1 source) Ciprofloxacin Drug Allergy hallucinations [facility] [employer] Other (1 source) Dicyclomine Drug Allergy stomach upset [facility] [employer] [facility] Other (1 source) traMADol Drug Allergy mental changes [facility] Other (1 source) Ampicillin Drug Allergy 10-29-19 22 [facility] Repository (1 source) Ciprofloxacin Drug Allergy 10-29-19 [facility] Repository (1 source) Erythromycin Drug Allergy 10-29-19 [facility] Repository (2 sources) Contrast media Allergy to substance (finding) [facility] 600 DO Work Phone: Medications [...] Start: 08-20-2018 fluticasone 0. 05 mg/inh Nasal [place] 2 spray(s), Nasal, Daily, Refill(s) 0 Start [...] Not-Taking Start: 02-10-2016 fluticasone 0.05 mg/inh Nasal [place] (9 sources) Start: 08-20-2018 fluticasone 0. 05 mg/inh Nasal [place] 2 spray(s), Nasal, Daily, Refill(s) 0 Start [...] Date: 07/07/19 Status: Ordered Vitamin D (Ergocalciferol) 23743 UNIT (11 sources) take 1 capsule by mouth every we ek Vitamin D (Ergocalciferol) 37659 UNIT 1 capsule Orally weekly for 90 days Active Vitamin D2 50,000 intl units (1.25 mg) oral capsule (14 sources) Start: 04-04-2021 take 1 capsule by mouth every week Vitamin D2 50,000 intl units (1.25 mg) oral capsule International_Unit cap(s), Oral, qWeek, Refills(s) 0 Start Date: 04/04/21 Status: Ordered Start: 04-04-2021 take 1 capsule by mo [facility] once daily Vitamin D2 50,000 intl units [...] days, # 30 cap(s), Refills(s) 0, Pharmacy: [facility], 165, cm, 11/12/22 11:52:00 EST, Height/Length Dosing, 69, kg, 11/12/22 11:52:00 EST, Weight Dosing Start Date: 11/12/22 Status: Ordered Start: 01-31-2022 take 1 capsule by [facility] four times daily cephalexin 500 mg Cap 500 mg = 1 cap(s), Oral, QID, # 40 cap(s), Refills(s) 0, Pharmacy: [facility] [address], 160, cm, 01/31/22 20:02:00 EDT, Height/Length [...] every week Vitamin D (Ergocalciferol) 1.25 MG (25420 UT) Oral Capsule Take 1 capsule by mouth once weekly Quantity: 12 Refills: 0 Ordered: 10-Jul-2021 DO Start : 10-Jul-2021 Active Start: 04-04-2021 take 1 capsule by [facility] once daily Vitamin D2 50,000 intl units (1.25 mg) oral capsule International_Unit cap(s), Oral, Daily, Refills(s) 0 Start Date: 04/04/21 Status: Ordered take 1 capsule by [facility] every week Vitamin D (Ergocalciferol) 13810 UNIT 1 capsule Orally weekly for 90 days Active ferrous fumarate 325 mg oral tablet (2 sources) Ferrous Fumarate 325 (106 Fe) MG TABS TAKE 1 TABLET DAILY DIRECTED. Refills: 0 Active microencapsulated potassium chloride 20 meq extended release oral tablet (2 sources) take 1 tablet [facility] once daily Klor-Con M20 20 MEQ Oral [...] disease (17 sources) Atherosclerotic heart disease of [place] coronary artery without angina pectoris; Translations: [Coronary [...] knee, unspecified] Chronic Other aftercare (1 source) nursing home (current) use of anticoagulants; Translations: [CUSTOMS CONSULTANT CURRNT USE ANTICOAGULANTS] Onset: 12-30-19 Episodic Other aftercare (1 source) Other lock technician (current) drug therapy; Translations: [OTH CUSTOMS CONSULTANT CURRENT DRUG THERAPY] Onset: 12-30-19 Episodic Other aftercare (1 source) nursing home (current) use of aspirin; Translations: [HALFWAY CURRENT USE OF ASPIRIN] Onset: 12-30-19 Episodic Other aftercare (1 source) Long-term current use of anticoagulant; Translations: [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 anticoagulants] Onset: 01-12-20 [...] 09-20-2023 HbA1c (Bld) [Mass fraction] 5.5 % [facility] Other HbA1c (Bld) [Mass fraction]o n 09-20-2023 A1C HEMOGLOBIN [facility] [employer] Other Consent for Treatmenton Consent for Treatment [id number] #1.00CD:127 Normal [facility] No Panel Informationon 06-17 Normal -[facility] [address] [place] Work Phone: John 06-05-2023 ALT No additional P-5'-P [Catalytic activity/Vol] 16 Int._Unit/L Normal 6-46 [facility] Comment on above: Performed By: #### 1 [id number], 5884501, 7289138, 9887704, 6129674 #### [facility] [address] [place] [address] Ryder 06-05-2023 AST [Catalytic activity/Vol] 19 Int._Unit/L Normal 5-43 [facility] Comment on above: Performed By: #### 1 [id number], 5789223, 6948040, 2066118, 2257858 #### [facility] [address] [place] [address] BMPon 06-05-2023 Anion gap [Moles/Vol] 12 mmol/L Normal 6-16 [facility] Comment on above: Performed By: #### 1 [id number], 3052537, 7584684, 1489937, 5890790 #### [facility] [address] [place] [address] Calcium [Mass/Vol] 9.7 mg/dL Normal 8.9-11.1 [facility] Comment on above: Performed By: #### 1 5926251, 0633911, 1223916, 6141868, 6685575 #### [facility] [address] [place] [address] Chloride [Moles/Vol] 105 mmol/L Normal 101-111 [facility] Comment on above: Performed By: #### 1 7729336, 2373044, 1573611, 0298811, 5575093 #### [facility] [address] [place] [address] CO2 [Moles/Vol] 27 mmol/L Normal 21-31 [facility] Comment on above: Performed By: #### 1 4278294, 0051966, 4471038, 5644434, 6406478 #### [facility] [address] [place] [address] Creatinine [Mass/Vol] 0.9 mg/dL Normal 0.5-1.3 [facility] Comment on above: Performed By: #### 1 5245056, 4810200, 9879825, 2000151, 5975945 #### [facility] [address] [place] [address] Glucose [Mass/Vol] 103 mg/dL Normal 55-199 [facility] Comment on above: Result Comment: If t his glucose result represents a fasting glucose, interpretation should refer to the following reference range: 55-99 mg/dL Performed By: #### 1 2292012, 0034498, 2500676, 9202886, 5061761 #### [facility] [address] [place] [address] Potassium [Moles/Vol] 3.9 mmol/L Normal 3.5-5.3 [facility] Comment on above: Performed By: #### 1 6814126, 8254039, 1912194, 9838973, 0951356 #### [facility] [address] [place] [address] Sodium [Moles/Vol] 140 mmol/L Normal 135-145 [facility] Comment on above: Performed By: #### 1 3914173, 6320149, 4937169, 3934670, 5028300 #### [facility] [address] [place] [address] Urea nitrogen [Mass/Vol] 24 mg/dL High 5-21 [facility] Comment on above: Performed By: #### 1 4494558, 4652959, 3591967, 4432347, 9788461 #### [facility] [address] [place] [address] Urea nitrogen/Creatinine [Mass ratio] 27 No Units High 10-20 [facility] Comment on above: Performed By: #### 1 0871311, 1803399, 7836122, 9172626, 7727041 #### [facility] [address] [place] [address] CHEMISTRYOrdered By: SYSTEM SYSTEM on 06-05-2023 ALT [...] 65 mL/min/1.73 m2 Normal >=59mL/min/1 .73 m2 [facility] Chem S Glucose [Mass/Vol] 103 mg/dL Normal [...] Treatmenton 05-12 Consent for Treatment [id number] #1.00CD:127 Normal [facility] Laboratory - Chemistry and C hemistry - challengeon 06-05-2023 Cholesterol [Mass/Vol] 76 mg/dL Normal <=129 -[facility] [address] [place] Work Phone: Cholesterol in LDL [Mass/Vol] 9 mg/dL Normal 7-40 -[facility] [address] [place] Work Phone: Laboratory - Chemistry and C hemistry - challengeOrdered By: SYSTEM SYSTEM on 06-05-2023 CO2 [Moles/Vol] 27 mmol/L Normal 21-31 [facility] Marino mack Lipid Panelon 06-05-2023 Cholesterol [Mass/Vol] 170 mg/dL Normal 120-200 [facility] Comment on above: Performed By: #### 1 8278401, 6910901, 6672393, 7667073, 5023084 ####[facility] [address] [place] [address] Cholesterol in HDL [Mass/Vol] 72 mg/dL Invalid Interpretation Code [facility] Comment on above: Result Comment: HDL > or equal to 60 mg/dL: Low cardiovascular risk HDL < 40 mg/dL : High cardiovascular risk Performed By: #### 1 2578968, 5548879, 2639765, 4230997, 3309835 ####[facility] [address] [place] [address] Cholesterol in LDL [Mass/Vol] 76 mg/dL Normal <=129 [facility] Comment on above: Performed By: #### 1 8839050, 6248274, 3052175, 9300517, 9697463 ####[facility] [address] [place] [address] Cholesterol in VLDL [Mass/Vol] 9 mg/dL Normal 7-40 [facility] Comment on above: Performed By: #### 1 0344035, 0094062, 6429476, 4188576, 8816780 ####[facility] [address] [place] [address] Triglyceride [Mass/Vol] 46 mg/dL Normal <=149 [facility] Comment on above: Performed By: #### 1 4372859, 1393191, 6491490, 5174153, 3894777 ####[facility] [address] [place] [address] No Panel Informationon 08-26 -2023 46 mg/dL Normal <=149 [facility] [address] [place] Work Phone: 72 mg/dL [facility] [address] [place] Work Phone: Comment on above: HDL > or equal to 60 mg/dL: Low cardiovascular riskHDL < 40 mg/dL : High cardiovascular risk 170 mg/dL Normal 120-200 [facility] [address] [place] Work Phone: 19 {Int._Unit/L} Normal 5-43 [facility] [address] [place] Work Phone: 16 {Int._Unit/L} Normal 6-46 [facility] [address] [place] Work Phone: 65 {mL/min/1.73_m2} Normal >=59 [facility] [address] [place] Work Phone: Comment on above: Chronic kidney disea se could be indicated at eGFR's of less than 60 mL/min/1.73m2. Kidney failure is indicated at less than 15 mL/min/1.73m2. 12 {mEq/L} Normal 6-16 [facility] [address] [place] Work Phone: 105 mmol/L Normal 101-111 [facility] [address] [place] Work Phone: 3.9 mmol/L Normal 3.5-5.3 [facility] [address] [place] Work Phone: 140 mmol/L Normal 135-145 [facility] [address] [place] Work Phone: 9.7 mg/dL Normal 8.9-11.1 [facility] [address] [place] Work Phone: 27 {No_Units} above high threshold 10-20 [facility] [address] [place] Work Phone: 0.9 mg/dL Normal 0.5-1.3 [facility] [place] Work Phone: 24 mg/dL above high threshold 5-21 [facility] [place] Work Phone: 103 mg/dL Normal 55-199 [facility] [address] [place] Work Phone: Comment on above: If this glucose resu lt represents a fasting glucose, interpretation should refer to the following reference range: 55-99 mg/dL Physician Orderon 06-05-2023 Physician Order [id number] #1.00CD:127 Normal [facility] eGFRon 06-05-2023 GFR/1.73 sq M.predicted among non-blacks MDRD (S/P/Bld) [Vol rate/Area] 65 mL/min/1.73 m2 Normal >=59 [facility] Comment on above: Order Comment: Order added by Discern Expert. Result Comment: [employer] Tender karl kidney disease could be indicated at eGFR's of less than 60 mL/min/1.73m2. Kidney failure is indicated at less than 15 mL/min/1.73m2. Performed By: #### 1 [id number], 6914965, 3842795, 3228509, 7219154 #### [facility] [address] [place] [address] Office Visit (Cardiology)on 06-02-2023 Follow-up visit Diagnoses/Problems [...] Past Med (more content not included)... Normal [place] Physician Orderon 06-02-2023 Physician Order [id number] #1.00CD:127 Normal [facility] Tobacco Screening.on 023 Adult depression screening assessment No [facility] [employer] 600 DO Work Phone: Fall risk assessment b) One or more fall s in the last year [facility] [employer] 600 DO Work Phone: Tobacco use status CPHS b) No [facility] 600 DO Work Phone: Folateon 04-26-2023 Folate [Mass/Vol] ng/mL Normal >=6.7 [facility] Comment on above: Performed By: #### 1 0712872, 7568961, 5514159, 2161783 #### [facility] [address] [place] [address] Vit B12on 04-26-2023 Cobalamin (Vitamin B12) [Mass/Vol] 474 pg/mL Normal 50-1500 [facility] Comment on above: Performed By: #### 1 4721480, 8767805, 9495185, 8640918 #### [facility] [address] [place] [address] T3 Freeon 04-25-2023 Free T3 [Mass/Vol] 2.5 pg/mL Invalid Interpretation Code 2.0-4.4 [facility] Comment on above: Result Comment: Perf ormed at: [facility] [address] [id number] PhD Vj Kaplan Performed By: #### 1 3536855, 6842562, 0521987, 5420079 #### [facility] [address] [place] [address] CHEMISTRYOrdered By: SYSTEM SYSTEM on 04-24-2023 25-hydroxyvitamin D3 [Mass/Vol] 50.8 ng/mL Normal 30.0 - 100.0 ng/mL [facility] Remisol Free T4 [Mass/Vol] 0.71 ng/dL Normal 0.58 - 1. 64 ng/dL [facility] Remisol TSH Qn 3.36 m[IU]/L Normal 0.34 - 5.60 mcIU/mL [facility] Remisol Consent for Treatmenton 04-10 Consent for Treatment [id number] #1.00CD:127 Normal [facility] Free T4on 04-24-2023 Free T4 [Mass/Vol] 0.71 ng/dL Normal 0.58-1.64 [facility] Comment on above: Performed By: #### 1 4142290, 3356663, 9578966, 8302775 #### [facility] [address] [place] [address] Physician Orderon 04-24-2023 Physician Order [id number] 6#1.00CD:127 Normal [facility] TSHon 04-24-2023 TSH Qn 3.36 m[IU]/L Normal 0.34-5.60 [facility] Comment on above: Performed By: #### 1 3745708, 2744919, 2239464, 5442801 #### [facility] [address] [place] [address] Vitamin D 25 Hydroxyon 04-24 25-hydroxyvitamin D3 [Mass/Vol] 50.8 ng/mL Normal 30.0-100.0 [facility] Comment on above: Result Comment: Vit panda D deficiency has been defined as a level of serum 25-OH vitamin D less than 20 ng/mL (1,2) by the [place] of Medicine and an Endocrine Society practice guideline. The Endocrine Society further defined vitamin D insufficiency as a level between 21 and 29 ng/mL (2). 1. IOM ([place] of Medicine). 2010. Dietary reference intakes for calcium and D. [place]: The National Academies Press. 2. Patrick MF, Jennifer NC, Dustin HWANG, et al. Evaluation, treatment, and prevention of vitamin D deficiency: an Endocrine Society clinical practice guideline. JCEM. 2011 Apr; 96 (7):1911-30. Performed By: #### 1 4941112, 5729099, 6848147, 0687316, 7252829 #### [facility] [address] [place] [address] Care Home Recordson 04-07 Care Home Records [id number]#1.00CD:127 Normal [facility] Family Medicine Office/Clini c Noteon 04-02-2023 Family Medicine Office/Clinic Note Chief Complaint TCU Discharge History of Present Illness Patient is being seen today for a discharge visit. TCU ADMIT from [facility] 03/20 - Fell while watering yard, unable [...] appropriate mood and affect. Assessment/Plan Home Health Bebj-yn-Cgsb Encounter Type: Medicare Reason for Shkk-az-Ddns (Diagnosis): DISCHARGE DIAGNOSIS Encounter Detail I certify that I conducted and documented that a hdlu-vz-gwmk (F2F) encounter with the consumer occurred within the 90 days prior to the home health services start of care date, or within 30 days following the start of care date (inclusive of the start of care date), preceding the certification of medical necessity. Assisted: Yes Physical Therapy: Yes Occupational Therapy: Yes Speech Therapy: No Nutrition Coordinator: Yes Block Cleaner: Yes Need for Home Health Services I certify based on my findings that... a. Home health services are medically necessary for this patient, including either intermittent custodial and/or therapy, AND b. The patient cannot [...] q12hr Tyl (more content not included)... Normal [facility] Comment on above: Result Comment: Elec tronically Signed By: New ALBERTS, Jes Jang\.br\Date and Time Signed: 04/02/23 14:12 EDT Operative Reporton Operative Report Indication for Surgery 82-year-old female with left breast epidermal cyst here for excision Preoperative Diagnosis 1 cm left breast epidermal cyst Postoperative Diagnosis As above Operation Left breast epidermal cyst excision Surgeon(s) Paul Gomez Bag Filler None Anesthesia Quarter percent Marcaine with epinephrine [...] was put in ALL capital letters Normal [facility] Comment on above: Result Comment: Elec tronically Signed By: Patricia GUILLEN, Paul Rausch.meme\Date and Time Signed: 03/25/23 16:42 EDT Family Medicine Office/Clini c Noteon 03-24-2023 Family Medicine Office/Clinic Note History of Present Illness TCU ADMIT from [facility] 03/20 Fell while watering yard, unable to [...] capsule, Oral, qWeek, Investigating: not rec'd for jail use Allergies traMADol (Hallucinations) Percocet 5/325 (paranoid [...] virus vacci (more content not included)... Normal [facility] Comment on above: Result Comment: Elec tronically Signed By: MG GUILLEN, Aaron\.br\Date and Time Signed: 03/23/23 22:28 EDT Discharge Instructionson Discharge Instructions [id number] 6#1.00CD:127 Normal [facility] Discharge Note-Nursingon Discharge Note-Nursing DARWIN HEART :1940 [...] capsule) fluticasone nasal (fluticasone 0.05 mg/inh Nasal [place]) furosemide (furosemide 40 mg Tab) lisinopril (lisinopril [...] Test Results None Pharmacy Information [facility] New Follow Up Appointments after Discharge Follow Up with JAVIER MARY When: In 0 days Where: [address] [place] [address]- Business (1) Medications What How Much When [...] fluticasone nasal (fluticasone 0.05 mg/ inh Nasal [place]) 2 Sprays Nasal Inhalation Every day Unchanged [...] Mixed hyperlipidemia (more content not included)... Normal [facility] Inpatient Clinical Summaryon 03-22-2023 Inpatient Clinical Summary [address] [address] Clinical Summary Person Information: Name: DARWIN HEART Age: 82 Years : 1940 Sex: Female PCP: JAVIER MARY DO Marital Status: Race: White Ethnicity: Non- or Language: Mozambican Visit Id: Visit Reason: Hip pain-swelling; Fall; FRACTURE OF INFERIOR PUBIC RAMUS, HIP PAIN, FRACTURE OF SUPERIOR PUBIC RAMUS Speciality: Acuity: Enc Type: Inpatient Med Service: Medical Arrival: 03/20/2023 20:01:12 Discharge: Dispo Type: Admitted as IP to this Hosp Address: [address] [place] [address] [address] [place] [id number] Provider Notes: Diagnosis: 1:Fracture of inferior pubic [...] week. fluticasone nasal (fluticasone 0.05 mg/inh Nasal [place]) 2 Sprays Nasal Inhalation every day. furosemide (furosemide 40 mg Tab) 1 Tablets By Mouth every day. lisinopril (lisinopril 20 mg Tab) 1 Tablets By Mouth every day. metoprolol (Metoprolol tartrate 25 mg Tab) 1 Tablets By Mouth 2 times a day. Care Team Members: Attending Physician: Jag CARVER DO Consulting Physician: Marquise Mesa DO Referring Physician: Follow up: Patient Education Information: Normal [facility] Inpatient Patient Summaryon 03-22-2023 Inpatient Patient Summary [...] capsule) fluticasone nasal (fluticasone 0.05 mg/inh Nasal [place]) furosemide (furosemide 40 mg Tab) lisinopril (lisinopril [...] Test Results None Pharmacy Information [facility] New Follow Up Appointments after Discharge Follow Up with JAVIER MARY When: In 0 days Where: [address] [place] [address]- Business (1) Medications What How Much When [...] fluticasone nasal (fluticasone 0.05 mg/ inh Nasal [place]) 2 Sprays Nasal Inhalation Every day Unchanged [...] Mixed hyperlipidemia (more content not included)... Normal [facility] Inpatient Patient Summary [place] [address] Patient Discharge Instructions PERSON INFORMATION Name: DARWIN [...] Dose: fluticasone nasal (fluticasone 0.05 mg/inh Nasal [place]) 2 Sprays Nasal Inhalation every day. Last [...] week. fluticasone nasal (fluticasone 0.05 mg/inh Nasal [place]) 2 Sprays Nasal Inhalation every day. furosemide (furosemide 40 mg Tab) 1 Tablets By Mouth every day. lisinopril (lisinopril 20 mg Tab) 1 Tablets By Mout (more content not included)... Normal [facility] Message from Medicareon 03-11 Message from Medicare [id number] 1#1.00CD:127 [facility] Monitor Recordon 03-22-2023 Monitor Record [id number] 4#1.00CD:127 Normal [facility] Monitor Record [id number]#1.00CD:127 Normal [facility] Monitor Record [id number] 8#1.00CD:127 Normal [facility] Monitor Record [id number]#1.00CD:127 Normal [facility] Progress Note-Physicianon Progress Note-Physician Basic Information 1. [...] artery disease (I25.10: Atherosclerotic heart disease of [place] coronary artery without angina pectoris) No chest [...] obtained. [place] (more content not included)... Normal [facility] Comment on above: Result Comment: Elec tronically Signed By: TWIN GUILLEN, Silvia\.br\Date and Time Signed: 03/22/23 11:46 EDT Transfer Documentson 023 Transfer Documents [id number] 8#1.00CD:127 Normal [facility] ABO/Rhon 03-21-2023 ABO/Rh Positive Invalid Interpretation Code [facility] Comment on above: Performed By: #### 1 [id number], 4838953, 9234391, 5267609 #### [facility] [address] [place] [address] ABO/Rh History Checkon 03-21 ABO/Rh History Check Verified Hx Blood Type Normal [facility] Comment on above: Performed By: #### 1 [id number], 0300668, 5969041, [id number] #### [facility] [address] [place] [address]3595 ABSCon 03-21-2023 ABSC Gel Interp Negative Normal [facility] Comment on above: Performed By: #### 1 0862459, 5690856, 3324860, 9580309 #### [facility] [address] [place] [address] 029[address] Auto Diffon 03-21-2023 Basophils/100 WBC (Bld) 0.8 % Normal 0.0-2.0 [facility] Comment on above: Order Comment: Order Added by Discern Expert. Performed By: #### 1 6753414, 2946988, 3894005, 7763741 #### [facility] [address] [place] [address] 94069 Basophils/Leukocytes Auto (Bld) [Pure # fraction] 0.0 E9/L Normal 0.0-0.2 [facility] Comment on above: Order Comment: Order Added by Discern Expert. Performed By: #### 1 4935582, 8459273, 2727111, 7081713 #### [facility] [address] [place] [address] 66838 Eosinophils/100 WBC (Bld) 1.6 % Normal 0.0-8.0 [facility] Comment on above: Order Comment: Order Added by Discern Expert. Performed By: #### 1 9826841, 6413339, 1037668, 2480053 #### [facility] [address] [place] [address] 41396 Eosinophils/Leukocyte s Auto (Bld) [Pure # fraction] 0.1 E9/L Normal 0.0-0.5 [facility] Comment on above: Order Comment: Order Added by Discern Expert. Performed By: #### 1 9456810, 6882969, 5108937, 7713770 #### [facility] [address] [place] [address] 98882 Lymphocytes/100 WBC (Bld) 22.4 % Normal 14.0-50.0 [facility] Comment on above: Order Comment: Order Added by Discern Expert. Performed By: #### 1 1030520, 9708167, 6774988, 0114457 #### [facility] [address] [place] [address]128 Lymphocytes/Leukocyte s Auto (Bld) [Pure # fraction] 1.2 E9/L Normal 1.0-4.0 [facility] Comment on above: Order Comment: Order Added by Discern Expert. Performed By: #### 1 8928875, 3794324, 3462797, 7668931 #### [facility] [address] [place] [address] 02441 Monocytes/100 WBC (Bld) 9.3 % Normal 4.0-14.0 [facility] Comment on above: Order Comment: Order Added by Discern Expert. Performed By: #### 1 4334770, 0245947, 3455195, 9077187 #### [facility] [address] [place] [address] 87082 Monocytes/Leukocytes Auto (Bld) [Pure # fraction] 0.5 E9/L Normal 0.2-1.0 [facility] Comment on above: Order Comment: Order Added by Discern Expert. Performed By: #### 1 5718514, 9338850, 5700444, 0872896 #### [facility] [address] [place] [address] 60371 Neutrophils/100 WBC (Bld) 65.9 % Normal 36.0-75.0 [facility] Comment on above: Order Comment: Order Added by Discern Expert. Performed By: #### 1 1492237, 5816192, 2544558, 0210419 #### [facility] [address] [place] [address] 53970 Neutrophils/Leukocyte s Auto (Bld) [Pure # fraction] 3.5 E9/L Normal 2.0-7.5 [facility] Comment on above: Order Comment: Order Added by Discern Expert. Performed By: #### 1 9374687, 3822377, 2737154, 4852561 #### [facility] [address] [place] [address] 26987 BMPon 03-21-2023 Anion gap [Moles/Vol] 7 mmol/L Normal 6-16 [facility] Comment on above: Performed By: #### 1 6518355, 1089871, 2894296, 0478348 #### [facility] [address] [place] [address] Calcium [Mass/Vol] 9.4 mg/dL Normal 8.9-11.1 [facility] Comment on above: Performed By: #### 1 3908081, 5144234, 2976584, 5972170 #### [facility] [address] [place] [address] Chloride [Moles/Vol] 111 mmol/L Normal 101-111 [facility] Comment on above: Performed By: #### 1 0254577, 5311942, 5939596, 7236554 #### [facility] [address] [place] [address] CO2 [Moles/Vol] 28 mmol/L Normal 21-31 [facility] Comment on above: Performed By: #### 1 1026369, 1059338, 0904529, 1599701 #### [facility] [address] [facility] [place] [address] Creatinine [Mass/Vol] 0.8 mg/dL Normal 0.5-1.3 [facility] Comment on above: Performed By: #### 1 5665728, 7847445, 8733579, 8447388 #### [facility] [address] [place] [address] Glucose [Mass/Vol] 112 mg/dL Normal 55-199 [facility] Comment on above: Result Comment: If t his glucose result represents a fasting glucose, interpretation should refer to the following reference range: 55-99 mg/dL Performed By: #### 1 2058428, 4592611, 4288766, 0847891 #### [facility] [address] [place] [address] Potassium [Moles/Vol] 3.6 mmol/L Normal 3.5-5.3 [facility] Comment on above: Performed By: #### 1 7713710, 9204151, 2571378, 5150959 #### [facility] [address] [place] [address] Sodium [Moles/Vol] 142 mmol/L Normal 135-145 [facility] Comment on above: Performed By: #### 1 9865793, 3110204, 9840534, 9067244 #### [facility] [address] [place] [address] Urea nitrogen [Mass/Vol] 30 mg/dL High 5-21 [facility] Comment on above: Performed By: #### 1 0852147, 1545687, 3044951, 3410469 #### [facility] [address] [place] [address] Urea nitrogen/Creatinine [Mass ratio] 38 No Units High 10-20 [facility] Comment on above: Performed By: #### 1 6374872, 8589024, 2709050, 8200396 #### [facility] [address] [place], [place] [address] [facility] ID#on 03-21-2023 BBID# [id number] Invalid Interpretation Code [facility] Comment on above: Performed By: #### 1 1253689, 3635187, 3257188, 7365096 #### [facility] [address] [place] [address] 01976 CBC w/ Auto Diffon 3 Erythrocyte distribution width (RBC) [Ratio] 13.4 % Normal 10.9-14.2 [facility] Comment on above: Performed By: #### 1 3970503, 2861284, 8097983, 8019210 #### [facility] [address] [place] [address] Hematocrit (Bld) [Volume fraction] 34.0 % Normal 34.0-46.0 [facility] Comment on above: Performed By: #### 1 1305343, 7266000, 9263662, 3506597 #### [facility] [address] [place] [address] Hemoglobin (Bld) [Mass/Vol] 11.6 g/dL Low 12.0-16.0 [facility] Comment on above: Performed By: #### 1 5946570, 0796203, 2506484, 6633776 #### [facility] [address] [place] [address] MCH (RBC) [Entitic mass] 30.1 pg Normal 27.0-34.0 [facility] Comment on above: Performed By: #### 1 9429600, 3752667, 0987187, 3342745 #### [facility] [address] [place] [address] 35877 MCHC (RBC) [Mass/Vol] 34.2 g/dL Normal 31.4-36.0 [facility] Comment on above: Performed By: #### 1 7085013, 7609218, 3637635, 8219363 #### [facility] [address] [place] [address] 72563 MCV (RBC) [Entitic vol] 87.9 fL Normal 80.0-100.0 [facility] Comment on above: Performed By: #### 1 6689713, 8454759, 4684973, 9078870 #### [facility] [address] [place] [address] Platelet mean volume (Bld) [Entitic vol] 7.8 fL Normal 6.4-10.8 [facility] Comment on above: Performed By: #### 1 6982957, 1620609, 0453338, 4374834 #### [facility] [address] [place] [address] 62993 Platelets (Bld) [#/Vol] 171.0 E9/L Normal 150.0-500.0 [facility] Comment on above: Performed By: #### 1 4683020, 0744495, 0107090, 2126420 #### [facility] [address] [place] [address] 08474 RBC (Bld) [#/Vol] 3.9 E12/L Low 4.3-5.9 [facility] Comment on above: Performed By: #### 1 9857953, 3199125, 5878423, 2055570 #### [facility] [address] [place] [address] WBC corrected for nucl RBC Auto (Bld) [#/Vol] 5.3 E9/L Normal 4.0-11.0 [facility] Comment on above: Performed By: #### 1 4138291, 8827049, 1816082, 4343075 #### [facility] [address] [place] [address] CT Head or Brain w/o Contras ton [...] MD Transcribed by: JOLEEN Technologist: NICK Simmons [facility] CT Pelvis w/o Contraston CT Pelvis w/o [...] Oral contrast amount in ml's: 0 [address] [facility] [address] Spine Cervical w/o Contra ston 03-21-2023 [...] MD Transcribed by: JOLEEN Technologist: NICK Simmons [facility] ED Clinical Summaryon 2022 ED Clinical Summary [address] [address] ED Clinical Summary Person Information Name: DARWIN HEART/[facility] Age: 82 Years : 1940 Sex: Female Language: Mozambican PCP: JAVIER MARY DO Marital Status: Visit Id: Visit Reason: Hip pain-swelling; Fall; FRACTURE OF INFERIOR PUBIC RAMUS, HIP PAIN, FRACTURE OF SUPERIOR PUBIC RAMUS Speciality: Acuity: 3 Enc Type: Inpatient Med Service: Medical Arrival: 03/20/2023 20:01:12 Discharge: LOS: 000 08:16 Checkin: 03/20/2023 20:01:12 Checkout: 03/21/2023 04:17:19 Dispo Type: Admitted as IP to this [facility] EVENTS: Event Name Event Status Request [...] Care Request 03/21/2023 03:58:43 ADDRESS: [place] [id number] [facility] DOC NOTES: MEDICAL INFORMATION: Prescriptions Given: [...] day. fluticasone nasal (fluticasone 0.05 mg/inh Nasal [place]) 2 Sprays Nasal Inhalation every day. furosemide [...] 8:Paroxysmal atrial fibrillation; 9:Hypertension; 10:Hyperlipidemia; 11:Anxiety Normal [facility] ED Note-Physicianon 03-21-20 ED Note-Physician Basic Information [...] and Complexity of Problems Differential Diagnosis: [] [facility] Data External documents reviewed: [] My EKG [...] Screen Automated (more content not included)... Normal [facility] Comment on above: Result Comment: Elec tronically Signed By: Rhys Chowdhury PA-C\.br\Date and Time Signed: 03/21/23 00:16 EDT\.br\Electronically Co-Signed By: Gerardo Hernandez DO\.br\Date and Time Co-Signed: 03/21/23 07:25 EDT ED Patient Education Noteon 03-21-2023 ED Patient Education Note Normal [facility] ED Patient Summaryon 023 ED Patient Summary [place] [address] Patient Discharge Instructions Person Information Name: DARWIN HEART Age: 82 Years Arrival Date: 03/20/2023 20:01:12 Discharge Diagnosis: 1:Fracture of inferior pubic ramus; 2:Fracture of superior pubic ramus; 3:Left hip pain; 4:Anemia; 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 It is important that you follow up with a doctor, nurse practitioner, or physician?s seed analysis laboratory assistant for ongoing care. If your symptoms [...] opioids can be used to help relieve moqdbbes-vy-rltgke pain and are often prescribed following a [...] care profe (more content not included)... Normal [facility] ED Traumaon 03-21-2023 ED Trauma [id number] 0#1.00CD:127 [facility] Interdisciplinary Note - Jasper e Manageron 03-21-2023 Interdisciplinary Note - Sales And Service Associate CRM spoke with patient. Patient was previous [...] H/h needs. discussed daughter can transport at [place]. Discussed PT/OT recommend SNF. discussed local facilities and gave her a list of facilities with ratings. She prefers [facility] and is aware may need nm side and may have a room mate. [facility] but wants to talk with her daughter first. Discussed will need precert from her insurance for SNF. Reviewed Medicare rights, she denies any questions and signs form. gave patient copy of signed form. . [facility] Comment on above: Result Comment: Elec tronically Signed By: Nate CROWLEY, Grisel\.br\Date and Time Signed: 03/21/23 10:39 EDT Interdisciplinary Note - Chiara n 03-21-2023 Interdisciplinary Note - OT Ot [facility] six clicks score 15/24 = SNF. Patient requires assist w/ all LE self care and transfers as this time. Patient is limited w/ attempts at function d/t 1010 pain L hip and low back area w/ transitional movements. Inpatient OT services to follow daily to progress w/ self care skills and transfers. Normal [facility] Monitor Recordon 03-21-2023 Monitor Record [id number] 0#1.00CD:127 [facility] Monitor Record [id number] 2#1.00CD:127 [facility] Monitor Record [id number] 1#1.00CD:127 [facility] Monitor Record [id number] 8#1.00CD:127 Normal [facility] Monitor Record [id number] 6#1.00CD:127 Normal [facility] Monitor Record [id number] 3#1.00CD:127 Normal [facility] Monitor Record [id number] 4#1.00CD:127 Normal [facility] RAD - Preliminary Cat Scan R eporton 03-21-2023 RAD - Preliminary Cat Scan Report [id number] 5#1.00CD:127 Normal [facility] RAD - Preliminary Cat Scan Report [id number] 5#1.00CD:127 Normal [facility] Troponinon 03-21-2023 Troponin I.cardiac [Mass/Vol] 12.00 pg/mL Normal 10.10-27.10 [facility] Comment on above: Result Comment: The 95% CI (Confidence Interval) PPV (Positive Predictive Value) for myocardial infarction in females is 38 pg/mL, in males 51 pg/mL. The results should be used in conjunction with clinical conditions of myocardial infarction. (Access High Sensitivity Troponin I Instructions For Use, Layla Vernon [place], May 2018) Performed By: #### 1 9994412, 6761300, 4893730, 4405857, 0262093, 3801632, 7468848, 54660605, 3218514 ####[facility] [address] [place] [address] XR Hip 1 View Left + Pelviso [...] mGy = na DAP = na Normal [facility] eGFRon 03-21-2023 GFR/1.73 sq M.predicted among non-blacks MDRD (S/P/Bld) [Vol rate/Area] 74 mL/min/1.73 m2 Normal >=59 [facility] Comment on above: Order Comment: Order added by Discern Expert. Result Comment: [employer] karl kidney disease could be indicated at eGFR's of less than 60 mL/min/1.73m2. Kidney failure is indicated at less than 15 mL/min/1.73m2. Performed By: #### 1 4692250, 7549841, 8456163, 2218111 #### [facility] [address] [place] [address] Auto Diffon 03-20-2023 Basophils/100 WBC (Bld) 0.8 % Normal 0.0-2.0 [facility] Comment on above: Order Comment: Order Added by Discern Expert. Performed By: #### 1 5673853, 1160306, 0429915, 8169510, 1208755, 7683656, 4165898, 89934719, 5095666 ####[facility] [address] [place] [address] Basophils/Leukocytes Auto (Bld) [Pure # fraction] 0.1 E9/L Normal 0.0-0.2 [facility] Comment on above: Order Comment: Order Added by Discern Expert. Performed By: #### 1 0091207, 2745003, 7341402, 9365517, 5082292, 8012436, 4987707, 59767208, 6883635 ####[place] [address] [place] [address] Eosinophils/100 WBC (Bld) 1.5 % Normal 0.0-8.0 [facility] Comment on above: Order Comment: Order Added by Discern Expert. Performed By: #### 1 9856318, 5029282, 0850852, 5625963, 6045444, 8771847, 6107951, 52300335, 0228374 ####[address] [address] Eosinophils/Leukocyte s Auto (Bld) [Pure # fraction] 0.1 E9/L Normal 0.0-0.5 [facility] Comment on above: Order Comment: Order Added by Discern Expert. Performed By: #### 1 7009860, 3269784, 8230419, 2992307, 2360326, 3606528, 5638259, 92715563, 5587327 ####[address] [address] Lymphocytes/100 WBC (Bld) 24.3 % Normal 14.0-50.0 [facility] Comment on above: Order Comment: Order Added by Wayne Expert. Performed By: #### 1 9963353, 5221978, 8073945, 5289550, 9071295, 0678952, 4597772, 95813541, 1888061 ####[address] [address] Lymphocytes/Leukocyte s Auto (Bld) [Pure # fraction] 1.7 E9/L Normal 1.0-4.0 [facility] Comment on above: Order Comment: Order Added by Discern Expert. Performed By: #### 1 7796184, 3064563, 8921959, 6862438, 3330990, 4243300, 0326192, 62081764, 1714803 ####[address] [address] Monocytes/100 WBC (Bld) 10.3 % Normal 4.0-14.0 [facility] Comment on above: Order Comment: Order Added by Discern Expert. Performed By: #### 1 7599308, 2665132, 6844024, 3068510, 6482243, 0829722, 6703786, 68437941, 5036545 ####[facility] [address] [place] [address] Monocytes/Leukocytes Auto (Bld) [Pure # fraction] 0.7 E9/L Normal 0.2-1.0 [facility] Comment on above: Order Comment: Order Added by Discern Expert. Performed By: #### 1 3480443, 3958555, 0128782, 8862587, 5223006, 3196063, 0190745, 43774236, 9295091 ####[facility] [address] [place] [address] Neutrophils/100 WBC (Bld) 63.1 % Normal 36.0-75.0 [facility] Comment on above: Order Comment: Order Added by Discern Expert. Performed By: #### 1 4302724, 3069490, 8369754, 3759229, 4099144, 1615815, 0826372, 08878613, 1835875 ####[facility] [address] [place] [address] Neutrophils/Leukocyte s Auto (Bld) [Pure # fraction] 4.5 E9/L Normal 2.0-7.5 [facility] Comment on above: Order Comment: Order Added by Discern Expert. Performed By: #### 1 7064217, 9495261, 7831674, 1152563, 6523782, 5465018, 3331766, 32129378, 2666505 ####[facility] [address] [place] [address] BMPon 03-20-2023 Creatinine [Mass/Vol] 1.1 mg/dL Normal 0.5-1.3 [facility] Comment on above: Performed By: #### 1 2695299, 2243487, 0263867, 4566712, 0719999, 8976120, 7847628, 73168800, 6743257 ####[facility] [address] [place] [address] Urea nitrogen [Mass/Vol] 40 mg/dL High 5-21 [facility] Comment on above: Performed By: #### 1 1449660, 0470076, 0820236, 9032583, 7243152, 4901158, 5892865, 35263842, 1364684 ####[facility] [address] [place] [address] Urea nitrogen/Creatinine [Mass ratio] 36 No Units High 10-20 [facility] Comment on above: Performed By: #### 1 3811506, 8688756, 2889712, 5689770, 0392596, 4600201, 4933520, 42792694, 8871705 ####[facility] [address] [place] [address] Anion gap [Moles/Vol] 11 mmol/L Normal 6-16 [facility] Comment on above: Performed By: #### 1 5729702, 4524016, 1563696, 6150812, 8375255, 7448801, 2637731, 90265158, 3478690 ####[facility] [address] [place] [address] Calcium [Mass/Vol] 9.6 mg/dL Normal 8.9-11.1 [facility] Comment on above: Performed By: #### 1 1401797, 3729377, 6184400, 0323487, 6934439, 3294627, 8416918, 14469201, 8481625 ####[facility] [address] [place] [address] Chloride [Moles/Vol] 106 mmol/L Normal 101-111 [facility] Comment on above: Performed By: #### 1 5178819, 9046988, 8356823, 7861599, 3229206, 9366389, 2015223, 31854514, 3138950 ####[facility] [address] [place] [address] CO2 [Moles/Vol] 29 mmol/L Normal 21-31 [facility] Comment on above: Performed By: #### 1 3146391, 7702226, 5174028, 5707176, 9280107, 7234499, 6004144, 03287255, 8373832 ####[facility] [address] [place] [address] Glucose [Mass/Vol] 104 mg/dL Normal 55-199 [facility] Comment on above: Result Comment: If t his glucose result represents a fasting glucose, interpretation should refer to the following reference range: 55-99 mg/dL Performed By: #### 1 2333039, 5362428, 6566917, 3739443, 2107284, 4188460, 2789932, 47786515, 2382642 ####[facility] [address] [place] [address] Potassium [Moles/Vol] 3.7 mmol/L Normal 3.5-5.3 [facility] Comment on above: Performed By: #### 1 5963531, 7463732, 8903894, 1942205, 5089324, 1604799, 7828111, 99952514, 4144966 ####[facility] [address] [place] [address] Sodium [Moles/Vol] 142 mmol/L Normal 135-145 [facility] Comment on above: Performed By: #### 1 8058779, 4713226, 1899474, 7390918, 9141939, 5563408, 0809412, 60230949, 7540996 ####[facility] [address] [place] [address] CBC w/ Auto Diffon 3 Erythrocyte distribution width (RBC) [Ratio] 13.4 % Normal 10.9-14.2 [facility] Comment on above: Performed By: #### 1 8606464, 8832214, 2655850, 4787047, 3200329, 9546148, 9202451, 16847323, 1782751 ####[facility] [address] [place] [address] Hematocrit (Bld) [Volume fraction] 35.0 % Normal 34.0-46.0 [facility] Comment on above: Performed By: #### 1 9101649, 5299378, 0114669, 3229422, 8055788, 9940714, 8842506, 42910135, 0727506 ####[place] [address] [place] [address] Hemoglobin (Bld) [Mass/Vol] 11.8 g/dL Low 12.0-16.0 [facility] Comment on above: Performed By: #### 1 7476158, 6437576, 3003353, 5557065, 6207485, 7595837, 8588844, 22983711, 6869152 ####[place] [address] MCH (RBC) [Entitic mass] 29.8 pg Normal 27.0-34.0 [facility] Comment on above: Performed By: #### 1 5117473, 6560758, 2585971, 1547428, 9792731, 3031176, 8182035, 28807832, 9819168 ####[place] [address] MCHC (RBC) [Mass/Vol] 33.6 g/dL Normal 31.4-36.0 [facility] Comment on above: Performed By: #### 1 7464507, 6934799, 0890831, 4606270, 2323560, 8165288, 2465241, 02009304, 0935302 ####[place] [address] MCV (RBC) [Entitic vol] 88.7 fL Normal 80.0-100.0 [facility] Comment on above: Performed By: #### 1 2228667, 2415546, 1591193, 7273289, 2138378, 1677889, 0127883, 66326462, 6346982 ####[address] [address] Platelet mean volume (Bld) [Entitic vol] 8.5 fL Normal 6.4-10.8 [facility] Comment on above: Performed By: #### 1 7642465, 0775487, 7738476, 6176520, 4618475, 1263110, 1514836, 09888472, 2454092 ####[facility] [address] [place] [address] Platelets (Bld) [#/Vol] 185.0 E9/L Normal 150.0-500.0 [facility] Comment on above: Performed By: #### 1 1245708, 0954788, 0827075, 7117276, 2096412, 9858529, 6392456, 09487915, 7473641 ####[facility] [address] [place] [address] RBC (Bld) [#/Vol] 4.0 E12/L Low 4.3-5.9 [facility] Comment on above: Performed By: #### 1 4604606, 3241474, 4244400, 8376238, 3060848, 5644498, 2766177, 29087995, 6298560 ####[facility] [address] [place] [address] WBC corrected for nucl RBC Auto (Bld) [#/Vol] 7.1 E9/L Normal 4.0-11.0 [facility] Comment on above: Performed By: #### 1 3303722, 8297569, 7892189, 5402205, 7113653, 8644531, 6605626, 90359809, 1344780 ####[facility] [address] [place] [address] Consent for Treatmenton 03-11 Consent for Treatment [id number]# 1.00CD:127 Normal [facility] Ethanolon 03-20-2023 Ethanol [Mass/Vol] mg/dL Normal <=7 [facility] Comment on above: Performed By: #### 1 9237982, 1454736, 8061083, 2657290 #### [facility] [address] [place] [address] Hep Func Panelon 03-20-2023 Albumin [Mass/Vol] 3.8 g/dL Normal 3.3-5.0 [facility] Comment on above: Performed By: #### 1 7972717, 2629912, 8465237, 8127489, 6294774, 8345848, 5273972, 36597253, 5485339 ####[facility] [address] [place] [address] Albumin/Globulin (S) [Mass conc ratio] 1.3 Normal 1.1-2.2 [facility] Comment on above: Performed By: #### 1 2766137, 1280366, 8040587, 6450622, 1550123, 8138030, 7598556, 48967179, 0009910 ####[place] [address] [place] [address] ALP [Catalytic activity/Vol] 76 Int._Unit/L Normal 21-98 [facility] Comment on above: Performed By: #### 1 1805217, 7977955, 2890276, 6836399, 5169087, 5326020, 7527450, 98926379, [id number] ####[facility] [address] [place] [address] ALT No additional P-5'-P [Catalytic activity/Vol] 18 Int._Unit/L Normal 6-46 [facility] Comment on above: Performed By: #### 1 2614311, 4939126, 5010540, 3658364, 8712577, 9162877, 0430429, 92393153, 2132365 ####[address] [address] AST [Catalytic activity/Vol] 18 Int._Unit/L Normal 5-43 [facility] Comment on above: Performed By: #### 1 9512461, 2635181, 6801606, 9517947, 7734638, 8935251, 0868594, 32002330, 6895782 ####[facility] [address] [place] [address] Bilirubin [Mass/Vol] 0.5 mg/dL Normal 0.0-1.1 [facility] Comment on above: Performed By: #### 1 0610780, 6267370, 9972306, 1785110, 4333747, 7265987, 3768411, 00837936, 4310734 ####[facility] [address] [place] [address] Bilirubin.direct [Mass/Vol] 0.1 mg/dL Normal 0.1-0.4 [facility] Comment on above: Performed By: #### 1 4539032, 1711549, 2043779, 1335077, 9276126, 5491718, 3092285, 56210498, 8433779 ####[address] [address] Bilirubin.indirect [Mass or moles/Vol] 0.4 mg/dL Normal 0.1-0.9 [facility] Comment on above: Performed By: #### 1 1002393, 1080277, 1008229, 2855344, 9960169, 9835509, 7304149, 38497827, 7024914 ####[address] [address] Globulin (S) [Mass/Vol] 2.9 g/dL Normal 1.4-4.0 [facility] Comment on above: Performed By: #### 1 9971682, 8047692, 6551938, 3360274, 4212569, 7681855, 1659596, 12557033, 9587769 ####[address] [address] Protein [Mass/Vol] 6.7 g/dL Normal 6.0-7.8 [facility] Comment on above: Performed By: #### 1 1715069, 8129900, 5198879, 3870089, 2106906, 2037552, 8914011, 06950594, 9590072 ####[address] [place] [address] Lactic Acidon 03-20-2023 Lactate [Mass/Vol] 0.7 mmol/L Normal 0.5-2.2 [facility] Comment on above: Performed By: #### 1 4238887, 5547807, 3786253, 3070134, 2261004, 4630940, 9213335, 64807437, 6536165 ####[facility] [address] [place] [address] Lipase Levelon 03-20-2023 Lipase [Catalytic activity/Vol] 36 U/L Normal 13-58 [facility] Comment on above: Performed By: #### 1 9332988, 4646104, 2090610, 8525843, 0956492, 5597459, 6739056, 93902328, 8576816 ####[facility] [address] [place] [address] PT & PTTon 03-20-2023 aPTT Coag (PPP) [Time] 38.9 second(s) High 25.1-36.5 [facility] Comment on above: Result Comment: Para meter [...] the same coagulation reagent and instrumentation as [facility]. Currently there are no coagulation studies available worldwide for children to 14 days, and no normal ranges. Heparin therapeutic range (represented by Anti-Factor Xa activity of 0.2 - 0.4 U/mL) corresponds to PTT of 56.6 - 109.0 sec. Performed By: #### 1 3503733, 5705930, 9887928, 0700309, 8899688, 9734872, 2787436, 46241944, 5749879 ####[facility] [address] [place] [address] INR Coag (PPP) [Relative time] 1.3 {INR} Invalid Interpretation Code [facility] Comment on above: Result Comment: INR results are specifically intended to assess patients stabilized on long-term Anticoagulation therapy suggested INR?s ?Less Intensive Anticoagulation? 2.0 ? 3.0 Conventional Range 3.0 ? 4.5 Performed By: #### 1 3215243, 2498175, 4600668, 6479522, 8099116, 0777140, 9214723, 98697413, 7185154 ####[facility] [address] [place] [address] PT Coag (PPP) [Time] 14.9 second(s) High 9.4-12.5 [facility] Comment on above: Result Comment: 15 d [...] the same coagulation reagent and instrumentation as [facility]. Currently there are no coagulation studies available worldwide for children to 14 days, and no normal ranges. Performed By: #### 1 3028238, 4290359, 1045813, 9067225, 8789016, 6015267, 9059790, 90837005, 4522881 ####[facility] [address] [place] [address] Pre-Arrival Noteon 3 Pre-Arrival Note Pre-Arrival Summary Name: , Current Date: 03/20/2023 20:01:50 EDT Gender: Date of : Age: Pre-Arrival Type: EMS ETA: 03/20/2023 20:23:00 EDT Primary Care Physician: Presenting Problem: Pre-Arrival User: Lazaro Morales Referring Source: Location: [place] Completion Date/Time: 03/20/2023 19:53:00 [facility] Emergency Department Pre-Hospital Report Form Vital Signs: 141/85 91p 18rr 96%ra Pre-Hospital Report:fall from standing on elequis and asa l leg pain Treatment in Route: Response to Treatment: Misc. Issues: Normal [facility] eGFRon 03-20-2023 GFR/1.73 sq M.predicted among non-blacks MDRD (S/P/Bld) [Vol rate/Area] 51 mL/min/1.73 m2 Low >=59 [facility] Comment on above: Order Comment: Order added by Discern Expert. Result Comment: [employer] karl kidney disease could be indicated at eGFR's of less than 60 mL/min/1.73m2. Kidney failure is indicated at less than 15 mL/min/1.73m2. Performed By: #### 1 1006130, 5396174, 5150780, 9644413, 4314101, 0152082, 7894327, 69856544, 0843387 ####[facility] [address] [place] [address] Provider Letteron 03-17-2023 Provider Letter March 17, 2023 [facility] [address] [place] [address] : 1940 To Whom It May Concern, Please excuse daughter, Doris Benito, from work 03/01/2023. FMLA Sincerely, Dr. Paul Gomez General Surgery Normal [facility] General Surgery Office/Clini c Noteon 03-08-2023 General [...] were removed in the office. Assessment/Plan Darwin Haert a 82-year-old female here for a postoperative follow-up following a left breast cyst excision performed on 02/17/2023. 1. Epidermal cyst (L72.0: Epidermal cyst) The patient may follow up with us as needed. ATTESTATION: Documentation services were performed after patient or guardian consented to allow [employer] to record this visit. SILVER managed care specialist and provider reviewed before signing. SILVER: [...] mg oral tablet fluticasone 0.05 mg/inh Nasal [place], 2 spray(s), Nasal, Daily furosemide 40 mg [...] 2023-01-04: TP (more content not included)... [facility] Comment on above: Result Comment: Elec tronically Signed By: Paul Gomez MD\.br\Date and Time Signed: 03/07/23 22:39 EDT\.br\Electronically Co-Signed By: Romi Cee\.br\Date and Time Co-Signed: 03/01/23 17:00 EDT IntraOperative Documentson 0 02-22-2023 IntraOperative Documents [id number]# 1.00CD:127 [facility] Main OR Intraoperative Recor don 02-19-2023 Main OR Intraoperative Record IntraOp Document Type FT Summary Primary Physician: Paul Gomez MD Finalized Date/Time: 02/19/23 07:56:54 Pt. Name: [facility]/Sex: 1940 Female Med Rec #: [id number] Physician: Paul Gomez MD Financial #: [id number] Pt. Type: A Room/Bed: AX10/11 Admit/Disch: 02/17/23 [...] Performed Surgeon - Primary Scrub - Primary Title 1 Tutor - Primary Time In 02/17/23 13:46:00 02/17/23 [...] and tissue Entry 1 Skin Integrity Intact, [place]ora, Warm, and Skin Abnormality No Dry Outcomes [...] Text: Implements (more content not included)... [facility] Discharge Instructionson Discharge Instructions [id number] 7#1.00CD:127 [facility] IntraOperative Documentson 0 02-18-2023 IntraOperative Documents [id number] 1#1.00CD:127 [facility] Preoperative Documentson Preoperative Documents [id number] 4#1.00CD:127 [facility] Prescriptions/Work Noteson 0 02-18-2023 Prescriptions/Work Notes [id number] 1#1.00CD:127 [facility] Discharge Instructionson Discharge Instructions ANETALINDAJEAN DARWIN [...] capsule) fluticasone nasal (fluticasone 0.05 mg/inh Nasal [place]) furosemide (furosemide 40 mg Tab) lisinopril (lisinopril [...] pain at the operative site [facility] Discharge Instructions Discharge Instructions New Follow Up Appointments after Discharge Follow Up with Paul Gomez When: In 10 days 02/27/2023 EDT Comments: Call for followup appointment Where: [facility] [address] [phone] [employer] (1) Medications What How Much When Instructions [...] fluticasone nasal (fluticasone 0.05 mg/ inh Nasal [place]) 2 Sprays Nasal Inhalation Every day Unchanged [...] of y (more content not included)... Normal [facility] Comment on above: Result Comment: Elec tronically Signed By: Nic CROWLEY, Jamee Jang\.br\Date and Time Signed: 02/17/23 14:35 EDT Inpatient Patient Summaryon 02-17-2023 Inpatient Patient Summary [place] [address] [facility] Clinical Discharge Instructions PERSON INFORMATION Name: [facility] Admitting Physician: Paul Gomez MD Attending Physician: Paul Gomez MD PCP: JAVIER MARY DO Discharge Diagnosis: Comment: PATIENT EDUCATION INFORMATION Instructions: Excision of Skin Lesions, Care After Medication Leaflets: Follow up: With: Address: When: Paul Gomez [address] [address] [phone] Business (1) In 10 days 02/27/2023 Comments: [...] day. fluticasone nasal (fluticasone 0.05 mg/inh Nasal [place]) 2 Sprays Nasal Inhalation every day. furosemide (furosemide 40 mg Tab) 1 Tablets By Mouth every day. lisinopril (lisinopril 20 mg Tab) 1 Tablets By Mouth every day. metoprolol (Metoprolol tartrate 50 mg Tab) 1 Tablets By Mouth 2 times a day. TAKE 1 TABLET BY MOUTH TWICE DAILY. Comment: Normal [facility] Outpatient Surgery Discharge Instructionon 02-17-2023 Outpatient Surgery Discharge Instruction [address] [address] Patient Discharge Instructions PERSON INFORMATION [...] up: With: Address: When: Paul Gomez [address] [place] [address], [facility] [address], [address] [phone] Business (1) In 10 days 02/27/2023 Comments: Call for followup appointment [facility] You may receive a survey from [employer] asking you to rate your care experience. Your feedback is important and will help us understand what we do well and how we can improve the quality of care we provide to you, your loved ones and our community. It?s an honor to serve you. Thank you for choosing [facility] HERE ARE THE MEDICATION CHANGES THAT [...] day. fluticasone nasal (fluticasone 0.05 mg/inh Nasal [place]) 2 Sprays Nasal Inhalation every day. furosemide [...] and water are not available, use hand vp account director. ? Change your dressing as told by [...] dry, and (more content not included)... Normal [facility] Patient Education - Texton 0 02-17-2023 Patient [...] and water are not available, use hand vp account director. ? Change your dressing as told by [...] take sponge baths. General instructions ? Take ixde-pfj-dppknlo and prescription medicines only as told by [...] Your wound opens up. Summary ? Take eiyg-vau-pegzaoc and prescription medicines only as told by [...] provider. Document Revised: 04/28/2022 Document Reviewed: 04/28/2022 [employer] Patient Education ? 2022 [employer] [facility] Pre-Certification Formon Pre-Certification Form [id number]#1 .00CD:127 [facility] Consent for Procedure/Surger yon 01-19-2023 Consent for Procedure/Surgery [id number] 7#1.00CD:127 [facility] Consent for Procedure/Surger yon 01-13-2023 Consent for Procedure/Surgery [id number] 1#1.00CD:127 Normal [facility] General Surgery Office/Clini c Noteon 01-12-2023 General [...] the procedure. 2. On apixaban therapy (Z79.01: nursing home (current) use of anticoagulants) 3. BMI 33.0-33.9,adult (Z68.33: Body mass index [BMI] 33.0-33.9, adult) ATTESTATION: Documentation services were performed after patient or guardian consented to allow [employer] to record this visit. SILVER managed care specialist and provider reviewed before signing. SILVER: [...] mg oral tablet fluticasone 0.05 mg/inh Nasal [place], 2 spray(s), Nasal, Daily furosemide 40 mg [...] - Denies (more content not included)... Normal [facility] Comment on above: Result Comment: Elec tronically [...] ovarian syndrome (PCOS). ? Binge-eating disorder. ? [place] syndrome. ? Taking certain medicines, such as [...] food choices, such as grocery stores and [employer]. What are the signs or symptoms? The [...] 0?1 drink (more content not included)... Normal [facility] Coding Summary.on 01-09-2023 Coding Summary. CD:[id number] Ww+PGhlYWQ+OQ2HJMToS 71etBAmmX3qQ7UGBJyWP ywgQVBQTElOSyIgbmFtZ K6cnGJuRTLc IC8+EC9qNOKbAzslnZDd y7X3kZL7Y39bul7lKOui wHR8DQZzYhGfgauhk0ol tRw9POpfEzanVaIf OJNdrD98VYH6eI87Xe55 mOCyvFBxn5gqwOi9VaAj AXJvJPS6sSdaYVlcc4Rb FMOcC05jkGHee6E8 IGNvbGxhcHNlOyBlbXB0 eD5eKLjxzgpvd8ujqdva Jvx0sf22rZWtq1L0gKS2 K9XpaqQ0QTUchRSc KhajhCNZaZ7gbiwuk7ii mstcVjPmUGZvTUq3WHs8 UZXvnCxlVhEvNB02VWU9 MLAurqPxV7OkQPWv eLuiFtT8y9N7Zp9UO2VJ FzigD9OBWOPECVwdkFE+ GJ52rc24P0ExFbumDvm7 UKEnHSM2nBA7bG8w IATeYCoeb2K7tJA3S7Xh maTljd7rm2tbZZAlEPev K99coPCnt5K9RSLnrXC2 MJOfeDxfGeGhzV63 Oyc+NTJspLxyu7OrNmxv u6qgb9huqIo0SyokJBGo ekYpkYzyVKR9f6WnAl3w LLDixKM0kMK0aZ3q MpJxGeU9YMiaV024UkPt zRDjBvjeH36eU4SyvZI+ VKTzNex3YIQueZacZJ0g Q1BwJLCmrgpesYQt lRzsHZ2lBDMubbmpSURj uV2gAXJdE6h4AaNnIqN4 CCytY3RiOLScwsvfJv27 mZ7tVqPwXfP4ZJfm I1CvpuN2FWZeiUEyZLlp MIA8I00ku2A0XFFfIVKz OSF9sUU7jI8rpMkriunz bGVmdDsgdmVydGlj MRbzVDadY048RUCkoZby PkNvZGluZyBEYXRlOiAg MDQvMDEvMjAyMzwvdGQ+ WGBtLTF8pAivJSXe fODuUXfxMt1moHzwvHhh BI5xAYXcvbwhBNCvcS6z YILedVNtzMycYX9pQCKw pcbwi889VrIxBOW6 DHEqoQPhI3VbjN8xMzPh AVXeUCFtZ1KccNTbIDfq M189YKduJgG8SAUtqcMn H4VvXNGksWwsFiH0 r5T4Fo7Yj1DfqebeC7Mi jDHkQtSiYbaqSCb8X5Gl PjwvdHI+SB95DOWzGM50 XBi2MAR6nQvwZNig EDYpW6HslH1fNhExSJSh ZGRkOyc+PHRhYmxlIHdp ZHRoPScxMDAlJyBzdHls XA7fUm9eICGrZAIp aCbyjCIvTwOxh9jhIGFl BPemKF6ojNdxV0VrbDU3 DUGax1f8Rk54A25fV4Xz dXA+KTIihCJ0xNK0 uQ0zTqUmJkL1RFmiE842 FdHmuVErEtmqt1nsc6zb lMc1IlT5DGXjdfFqtZcp KWV8s2FlIf83X07s IHdpZHRoPSIxNSUiIHZh sSivwh1dkJ1mAr6+PGNv zMV3lFT2qV5dRlEeTyZ6 WLyvB834CnCqkAZh Tilvw2ull3cacQt8NnAh ORFqnmWciGafOZJ2i8Hy Yl85M7QnsStau2IzAms1 xr48gYKgk9L1sME3 M3YrTQUxmsrneIZimSkc RC3kJIOplawyBZOklM4v HACyD8l9VgPaZqT7MWno W0ZiyiM8GLSsaIJi QSHqtDLVbF8yilbiz5if ysbhQuNaKZZuGLz8DOf3 VLJpyWlkSzVoAKQ4YgS5 FNX1kSEkgY9yuTbm jhawkQ0aBxs+LXW9tPFp eVXPON4gZvgrnYU+PHRk HXR9gEhnYRpdLATrkC1t VHEfC8o1DnXrWyF9 GMfnW8ZmizX8WGWyrXEj AWRwfPTNkG2uuiyyb0ab oowtVdAmWZHmPAc8MLg6 LWFsaWduOiBsZWZ0 WgD3CGP5tPPqbD0poFyr klklbL1sVep+QmlydGgg NWC7VPl4L1KqTfv0BFWd cEstLX9mrOApLHzd Ga0bdVvikMalSR3zYOZn lvfou370ZsLtv4udMEKp gEFpUOjiZHG0O65zc7V2 JNMcZZTxBTX0oJX4 qK6qnPcyrntikJCmzWgu yyBzxAmmCRgdUIpyJ620 CWAogVyoYwKfZVs9J5Xo Amy3IYYqtNjrMU8m bBJrXTusYv3tqRdxzHnp FD7aJZOfscloj457QtSd f1xcQRDsvEPwFZnoZCW0 B31oe0S3YCYqWQKk XUS6wCY1wW1agWdjytfa bGVmdDsgdmVydGljYWwt GSztC319SZGfdGpcAiSf vJw4J2PnYza7ZUAx bLwxYF1eqBQcYVtxYz0m oMtqkGojQM3xRDTzhpbq e009HsTfp9ypWDTllUGp TVefNIK3Z26re7Z2 GTSdUAOnYSF1zMD9mH1p bGlnbjogbGVmdDsgdmVy dSrvBVyqAVmbR010MJBi cDsnPlBhdGllbnQg ESolCAd2I1MpBbpjiGB+ LA72EFQaVX53eTJmfSDe c8vjjQc8DtFfJHFpYOC2 jWvfAPrnu8XkIMPb B26xsUNrb9I7YMIykXxa oXMjZbCzzEY4yD1lXVlw qxuxn1kpgdegBxifp6wy si70tO28V44zYGke ZHRoPSIzMCUiIHZhbGln xa4lxT1jUn8+PGNvbCB3 rSM2vM8xTSStMkC8XZyk L048RyVrsPEkRhoj g8jds0nsaRp6YwS6IIRx nkZjlGfgZLC6i7CpUh62 W84qXAjgFXUmMIMnPYQe ACMxoRhrqc5ofZ5z Ii8+LIZaqLX2pVW0sZ9d OnCvBrN8LGyiI563MsXa qYDeLyzrA35pV1GylAS+ VOPnYww9TFEjoSfa NJ8whTCrFBlsOs6hYNS2 TuYyWzBeCUowN2VpCKSl jakumaifvLO4GSDpZENe qE93Yh2lhOdmCVPy fJCDxJ3hufnct3ispcow QjNbLANyAKw9FUs2MTXn qIloRvRmIXR3MoW4AYF8 nBSbaG2dmXpzvgyi sF5aT7OmZNBhwsohPs24 hW6oSgVpPbW2DXmvYwe+ Z14PLRcEFMXENUGNXXUU MCL5U6KpZnz9ZDEs vKnhKH7wgNJvCLayRi6w wQhvgMdzDW5qFQTfvzkw YGAhkA2pFITnhTYzgWtn CY0kKVRttjoqh714 FgAmUBL7GAAhlHQdO0Fh cW4jZoCgUZNjLYUmM5Fk tCWmEDeaJ262QLjxEbY6 HQKtmoFsN5OyNCEr pOomIjG2b4Y4Gt8sUN7m Nj4uCJPjUI31FO75fNRa n2F2nZS8X8SzFSAxthqc ljtgzWR9ZIIwZKVn eX04wXMiLHmjIs2fc5Z2 a437TYUtPAVnqS49Sc9z rKrfVOXmaGPQhB3jhzgw u8zqqqrqWmYcLYKc YAv7EMv0PDYagGtoFoMw WMS6CnR1TRW7aLLyhZ2r mJhkatdhfX8tSxk+ODAg XBMxliY3O2SlSph1 FFNifBylOF4gjWTcZLtv Pz6uiSupbZlaPE3iCKLx ibwoRPAsqC3kOKGvlMCz cCitDY5rLSRmwaha r698XoZfMYK9RYTnkGBm U6YvsW3dYrFnNLQjDJVx R2DxsVViJYkcS174VLkd AnE9VOKrxgAeM3Tg GXTpyKdlXyD1t9P9Lt1N UX4hbHC5U1PdDlf8DIBp oNkoUB6kdUXaUDsuVs6d rApgkJyxJB2tYJVb vfdvWOWjzZ3aUVEfeRMr nNvgEM4gFFAqnwmsn909 BpXxSTN9HOVxyVVvV4Uu yU5rLxTrSGFjBLLy U1JjrVRmFGjyP195KZja GiW5YBKvovWiK8EuXCZz aYwlBxC1i0Y0Lr4XIBKr LXFtfEYtLwP3K6Mm PjwvdHI+BW45VBHjYH76 wDYzePSlf6zmyXo0GvRo ORFoDSM3gOtlONaec8Wg FVYoO74ieERri9R9 IGNvbGxhcHNlOyBlbXB0 pI6lOLdztibra5cffbey Sjhqx7whlk05gL81B86w IHdpZHRoPSIzMCUi KOCgiRdwov7anL6rTv4+ QZCpaCY0wCA6cZ8eQpFb RcT3MDfbB351VcQciOZa Cvhyz9gwz5fllEg7 IjIwJSIgdmFsaWduPSJ0 t3TpTw80L71bERctIRDt AFHqHMQcDTZsoPzvlz5j fN5oZu3+ZB6rh4vx wc40xY44cHT+PHRkIHN0 qDyiNJasPVQbtH3dMBih IpQ7XXMaKkDsiR37bGLe VGbpAo4qmDbywRwp AL7vQLWzjcsnx219NcHl m9ygRZGwpVLzOIreXRD8 X37kg5P1DVErHVTuLAU3 vZY0vB6uwVecgijz bGVmdDsgdmVydGljYWwt ANqnM242VGKxcIweIvHh dKYlJ7clggBJTQ0nRxqh dGQ+OXRiNBJ2nPhs LOzuGPUjjV7iFCDyQ6k8 UfPhIcS4CLfgP4VkrrU5 AMDzwXLnCWWeqFZYaH0q wsvsa2qpjqzwCdGh CMIhLVp5TGs1TTMriFjq RlKeWLT7LgX5MPW2kFCg vR7uiZygkthbeF1aSqi+ RklOOjwvdGQ+PHRk EDP2vBcnYUzvKMFdnM5a TAJiV1n3PxRlHkW8YJqt X8TnbsL6IJJqzKFeLSPr qJHHdY1plijme3xw qhppDfIoZUBqMAa8WAx3 WDCuiKtmQjWlMRT6LlI5 QQN1gTLxtR4vxOonbxwn fY2rOta+TVJOOjwv dGQ+MBTeRXY0eWsrJLtz DGHjeE1mLNYqS2z8IsSx XnZ6DKgpM8GiocA0RDTj bFJqUAFovNMWcC7k guzjl4xlmrbuPdEpFBPh IFe3JJr9YDShfXsjObZt LTV4VpH5RNZ9tDOihT9c fJkddmwrmL9qAze+ THV2JZC3HL75FO86P9Ta PjwvdGFibGU+PHRhYmxl IHdpZHRoPScxMDAlJyBz sDmtZU4mIi3wNKMv LWNvbGxh (more content not included)... 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 female here for mass on left breast Patient presented to [facility] on 12/28/22 with mass on left [...] breast cancer with a lumpectomy performed at [facility] performed 25 years ago. The patient was [...] evaluation and attempt to obtain records from [facility]. 2. (more content not included)... Normal [facility] Comment on above: Result Comment: Elec tronically Signed By: Patricia GUILLEN, Paul Walker\.br\Date and Time Signed: 01/04/23 14:16 EDT\.br\Electronically Co-Signed By: Alaina Calixto\.br\Date and Time Co-Signed: 01/04/23 12:09 EDT Coding Summary.on 12-30-2022 Coding Summary. CD:[id number] Ww+PGhlYWQ+VR7KDVVfK 32avNVsxZ3qZ9UYXXuWT ywgQVBQTElOSyIgbmFtZ R1jpWIfWSLs IC8+XJ1qLDBdZropdXVu a7P7bAR6K17xsf0kMLep aOQ4CXPiIrFyjguca6ki rXz1AUydQrjoEkIe XWKzpB09FEW4lW82Rg91 rFIgzEFhp8bvySr0YcUl XAAkATZ3eMzbFHnqx1Tr ZFNrE98wdDXns8N6 IGNvbGxhcHNlOyBlbXB0 sL4wPSkqmkiym8teeumf Juz4aw80hNKdr0T4xJO0 W6PjsjU2DJBplIKz XbzohWQBxU9qskwaj0mw uujiUnOqHLAeSIe3SXh5 YWCgoIfsQfScGE33GTP5 PLAfekXpD7RiQTWl qQbjGaD2d2K7Iv9UP2DP OmpcL8MRHMAGTQbrvRP+ XO49uk57C6PxUoxqYom7 ULKdKMX0xPG6fR5n QPUlGVimi5T0iOS9V4Sp stPsqc8tq7pzSAWxJMqi J42inJCaj7Z9TZHvfSQ3 EKRzoJktOnPlxE79 Oyc+VUSmjOjeh1AtJsmt f4gas7lzeEj8ZsaaUGTf tiDhyFzrTNJ1l1FdTy6n WGGvpNE3uMK0kX9p SqQfCxE8TVcpK601UtJa pRYnAlprR57vP5XkgYD+ JYZhKme3MOWovLftLO7x B8KeVUEsqciolXYg xOonXW2kDCHddjhaXGDi xT3aBLRjI5h7NrLiPuJ8 KMzaM2PyHQNstseyDi71 dA9jWnYeCsQ7TMzb G2QfkoY8TUXuzJCoONea YMY8U01lq1V7ALMqHPUd BIZ8mWU2oV6frGbvjwxt bGVmdDsgdmVydGlj XSnkBOnrR368LIZyxHvw PkNvZGluZyBEYXRlOiAg MDMvMjIvMjAyMzwvdGQ+ MYIvEFZ0tWbbZVQi bMYxBFfuVl6sxAfadUpk GL0dCYLwyfslFLVkwR0c QKKdnYDquNfeGI8lJQLf hoslf531WtNmUZQ8 VOFwcQAsH9IigF2kSeGd TEQqTCEcA0ShrRGiJOuq N627SYycMoZ1GTWdyiIb S3HjOTUryGkeBwS0 k8S9Rn0Su9NnkftyJ7He dMOcJsKhVjygCCv0Q9Wn PjwvdHI+NQ02FRHvKJ57 HWp7OSC1uKxuSTse CISlO0GquN1sEhStMNDc ZGRkOyc+PHRhYmxlIHdp ZHRoPScxMDAlJyBzdHls LQ0iRd7lDBElYKFv vVrlqXDkViZxc2wiKWUd MUriQI2ntNcoU9KquCA5 VEDul9h4Pl83M40cF6Cu dXA+HYXsvCV4xGN6 mV9tWsBiFoQ7HZgaR155 ZbGcyEJwOajoh3htt9vm bTj6MvJ7OKWjofJlcIlu XVJ7x8LgQk23Q98i IHdpZHRoPSIxNSUiIHZh eUxvge3etW7hLg9+PGNv hNH2uHJ5dJ5oDmSyZpY8 VHcxV068DzRgyUOz Gjikz1mct5xziKz3TnBq WDHchgNllGsrFEJ5a5Ls Mx05P8XimTwkn2OkJfw5 lr48oHKeg3V7fSC1 T0MuPVSzdfmrlJGdnPcu KT6zUBSdcgdtLDTlgI1b SHPtR4m6WoOsRzN1RAxb C1CqmvH7TEZoyEOj WJEepKBFkP1fxkftf9vj yvjjNxXjOXYcGFp2TTo9 LTMvcZffReMtPOG1ZaI9 EYN8rFGefJ6izKzf vmfrlU2zBor+AZO8tOHa aTWQNH6fNtksqJN+PHRk DHP2kYfxAWgqUWMlvG8d LAOvJ2k3YaFqZfN9 PSqrB4UyrzU0LWBuoZZj TOJxwXTWpY7xkdaqr4ut ivguLhGeJSTfWUl5LFj3 LWFsaWduOiBsZWZ0 TeE8ISQ7vRXypQ9ygUfq vuadkS4rOdj+QmlydGgg GBG5STt4Z1DhXzh3RIJg aXhuPD2jsFUbVQaw Fx2kiEqemUqaBG9wSLLk mbfdp680NfQgx6qjOENm mUSaMWkeAUN2T09yo5V9 NTXmFHReAYD9xEZ4 rX2slGhtgypqtBMitLkg ncHcqPtlPVkxAPjlR249 RERiuYoaPxKkUKz5T2Nc Voz2HNVrjSpaPA8v fMOdYCuoVx7pnWdmkXgc FI6dFAUuonlvm322GqLh f9xwGWHmcMShWJavFLG1 W85bh1N0MVQdGXEu BBS3vVZ0dH2dpFkncjsh bGVmdDsgdmVydGljYWwt KMgvJ437UZMdhPhdZoMx aTb8D0IvMho0ZNRp mTgeHO8caXLxRTvcGb5o qIqpjHwyZY9wWSGnosax a163KtAqi4nyGGRlkOPv KUrjTWF0L71cp8O7 VHHlJALqCKY8oBW5mD4a bGlnbjogbGVmdDsgdmVy mVphVHnaMJvyK682LADk cDsnPlBhdGllbnQg MOamQVx3E5QsAcmkwXX+ KK67OZHhUR64gBCnqBYd q8osvTr1JeFuETKhPUA8 bJkkMZbmr7IyPFYe O04bzJMag1R2FBOrsHgr kMRhLtGjwEN5lQ9zGBje ynhwd1kbyzrqAnbxo1fi ui12eT04X47iATvh ZHRoPSIzMCUiIHZhbGln ww2znM1zJf2+PGNvbCB3 oFT9qQ1fQHWuDjF6OEdv H885IvJvjHIfHgns o4pen4hxiHh3FjW6WLJt byBmaNljPYP4t8GoNv82 Z08gRZabIUEqEHIpNMPb DZQmmRrhqa0hvS1p Ii8+ATBgjPV1wDL8aW5r KnAzFfR6YZmsO348VeRd eAIuGinxW89wV5XqiLY+ GPJiPgm1ADKcoYfg XC7xpDNmSIlvNf1sQIT7 MyRuMcUqSAwaS8GhVOVy jmlhaoxflLA8VIKzZEOt xW38Jg8fgTzwFOAj wFIZuQ5ouuraj9tdwehq QqCkWBScKKf0KEn6WWEd wJjlWyTnWKO2TrW7HAA1 uCKewG4olDoqsgxm cN5qW8FcIWQyidfbOo75 rH2lWwHfKhD9STouOro+ I23UOWzFUNSWWPQDUUQA APJ4N8KqIdn2PRJx vEnfTX6avOEjQHzqLq6r iHtmpHpkQI1wNYCettto PAXywZ7sICQsbVAycZrm XI1rGHFwddupc163 GyZvNYA7UBQuvNVrN4Ys sP1dJdYyKQBgDFSqZ4Py dJEjTObgT603ZDjwDqR8 DQJxukEjQ2ZrPITv bAjdCqI8b7B2Mj1rLX5s Ip4rSPYvUS16GP60iRGn e4F4dVO8Q0OmZLOjyowr cqtsgAY8NQWsHRVt wE65mGQnWKrkFi0mu4P6 o181ACJfVNFrgC74Ev2c sRvsQNBftIEWlS6ikvqx o5ztgnitGvJuZXIr MIc0JIk6WBAszSrwHmXt GOZ0NuG4NRG5rALouQ9l kWqmrnnjzA3nHbq+ODAg OFRvjwV7X3BeVqj5 WZHbyXkfMQ1tlWUwCUov Io1epXijmCqxAL0jTQWi patyTEOrfC0qPCIvvPLo wTtoOV9qMYNygoxz z542OuRmDUR3JOBisLMp J9MhgT1yPhLtCURvTWQl I6VffEZcUTlzJ669DIps YsN6FLAdwiDcX9Wx QSQxoIudJcQ8k5C4Tj3H KM1nqXH1R7YpVor1MVNz jTipTV0hqTCaWQfoCr3x zChxeSirCK1zANLb hgsoTUXkjE9cVIOyoKQc dVpqXJ2zVYMtezvcy135 UyHqQGE7QEHkdNBwT7Sw aH9zOvWxBANnQRNo K1AnmGGnSEyqS136LNhz DsY3XJRwvpWbQ6JnCQEv iBnhWpL5o5S0Qa1FrREo K2GlH0y6D2AcMjhx dHI+PZ49USUiXG41mJRv kKLjq9snaSx8SdAcAYMe GBA4fPezURzca9EhEXCa K47xyMAjk9Z3CHIo yUjsqJOxMuApnSB7kA6o VXkcuyoff0raizycJuhs n7iesp19vJ26U53eEDbe ZHRoPSIzMCUiIHZh nBhenj1odM9rPr3+PGNv iLG4lKQ7gQ4lSpNoFxN6 ACqwL824GtMlhZZxSmjd d8yuj5ngkGw2FzYx YNLdgwBpdWgjKRI2m1Pg Mw71U88pRKkzWXZiBBSh COKvXAIcuHhxnp3duH9q Ii8+WG6gx1qwuv75 aC14xYC+XCLbVKL7bDvm TRpfSZVqvK1zQXmiXlP4 NIJfAfFmsY45eOPrZDsv Ip2vuUamlFdyNF4v VTPkodsku939BjWkt2vr GJUykWQlXQzpNFP9Z26d n9M2RLHcVNMuDVJ6xTG9 qC2qqCgdodvbhRJi dDsgdmVydGljYWwtYWxp W168JYLvaVygApVhiRXe C7sasdSFRS8kArhssUX+ ZLMvEIE6bEqbVOji MFFliW0dCKWuH4l0LdUu OeZ5SFoaK8EetvR4EEHu bHNoKLPptTDMoF0qlrhl n0dtdjenXxVvLYJw HUn1WWa4UZDedZmpQxLi FCS4UwE8PIM2oFVfxE7h xCkeslhxnH1yEme+RklO OjwvdGQ+PHRkIHN0 wYevWGemGWBzhB1xBODa U2e1SeHxYxM6IKwwX3Zj paF8GNOabFQqFSJwiPWE kI6qppfjq9fhychj FyDjPNXlGFy8HJj3XNHu cHkgXgKmVGY7DfO0SLK4 vWIvaE4vuEzouzhreN6g Oyc+TVJOOjwvdGQ+ FPYcMOD2zYeqFWbtPEKp qZ8oFBKbX6y9QcKpOiS3 BImqZ3BmynB8TNMnvWGu QLGivGRGfC3pkjuw y2glygbnRgWuYOVoLTr3 USs8AGCplBexGkGoPTG3 PnK9PYX1cNPakA3fvBsv fijdsK7iZdb+UGF5 TRA3LB18ZJ41E8YoGacq dGFibGU+PHRhYmxlIHdp ZHRoPScxMDAlJyBzdHls FQ6vBu4gRHFqVDGb bGxhcHNl (more content not included)... [facility] ED Note-Physicianon 12-30-19 ED Note-Physician Basic Information [...] and Complexity of Problems Differential Diagnosis: [] [facility] Data External documents reviewed: Not applicable My [...] QID, # 40 cap(s), Refills(s) 0, Pharmacy: [facility], 146, cm, 12/28/22 16:31:00 EDT, Height/Length Dosing, 69, kg, 12/28/22 16:31:00 EDT, Weight Dosing Disposition Plan Patient Discharge Condition Stable Discharge Disposition To home Discharge Prescription List Prescriptions cephalexin 500 mg Cap, 500 mg= 1 cap(s), Oral, QID Follow-up With When Contact Information Dae LANDAVERDE In 3 days 12/31/2022 EDT [address], [address] [facility] 3 [place] [address]- Business (1) Additional Instructions: Follow-up for evaluation and treatment of breast abscess JAVIER MARY In [address], [place] [address] [place] [address]- Business (1) Additional Instructions: Patient Education Skin Abscess Attestation Patient seen and evaluated by the physician seed analysis laboratory assistant. Attending physician was present in the emergency department and supervised care. This visit was performed by both the physician and an APC. I performed all aspects of the MDM as documented. This report was transcribed using voice recognition software. Every effort was made to ensure accuracy, however, inadvertently computerized candy mixer mistakes may be present. Appropriate healthcare PPE [...] inpatient medica (more content not included)... [facility] Comment on above: Result Comment: Elec tronically Signed By: Rhys Chowdhury PA-C\.br\Date and Time Signed: 12/28/22 16:48 EDT\.br\Electronically Co-Signed By: Paul Teixeira DO\.br\Date and Time Co-Signed: 12/29/22 07:13 EDT Consent for Treatmenton 12-10 Consent for Treatment [id number] #1.00CD:127 [facility] Discharge Instructionson Discharge Instructions [id number] 3#1.00CD:127 [facility] ED Clinical Summaryon 2022 ED Clinical Summary [place] [id number] ED Clinical Summary Person Information Name: DARWIN HEART/[facility]_Nadeem Age: 82 Years : 1940 Sex: Female Language: Mozambican PCP: JAVIER MARY DO Marital Status: Phone: [phone] Visit Id: Visit Reason: Abscess - simple; [...] 12/28/2022 16:50:39 12/28/2022 16:50:39 12/28/2022 16:50:39 ADDRESS: [address] [place] [address] [address] [place] [id number] [facility] DOC NOTES: MEDICAL INFORMATION: Prescriptions Given: Medications to Continue Taking That Have Changed [facility], [address] [facility] [place] [id number], [phone] START: cephalexin (cephalexin 500 mg Cap) 1 [...] meals). fluticasone nasal (fluticasone 0.05 mg/inh Nasal [place]) 2 Sprays Nasal Inhalation every day. furosemide [...] Follow up: With: Address: When: Dae LANDAVERDE [address] [place], [place] [address]dict [place], [facility] [address], [employer] [place] [address] [place] [address] [employer] (1) In 3 days 12/31/2022 Comments: Follow-up for evaluation and treatment of breast abscess With: Address: When: JAVIER MARY [address] [facility] 2 [place] [address] [employer] (1) In 3 days DIAGNOSIS: Breast abscess [facility] ED Patient Education Noteon 12-28-2022 ED Patient [...] these instructions at home: Medicines ? Take rpst-cbk-uheafgd and prescription medicines only as told by [...] and water are not available, use hand vp account director. ? Check your abscess every day for [...] Document Izzy (more content not included)... [facility] ED Patient Summaryon 023 ED Patient Summary [address] [address] Patient Discharge Instructions Person Information Name: DARWIN HEART Age: 82 Years Arrival Date: 12/28/2022 16:22:27 Discharge Diagnosis: Breast abscess Primary Care Physician: JAVIER MARY DO Provider Information Primary Provider: Paul Teixeira DO [employer] Supervisor:Rhys Chowdhury PA-C The exam and treatment you received in the Emergency Department were for an urgent problem and are not intended as complete care. It is important that you follow up with a doctor, nurse practitioner, or physician?s seed analysis laboratory assistant for ongoing care. If your symptoms [...] Address: When: Dae LANDAVERDE [address], [facility] [address], [facility] 3 [place] [address] Business (1) In 3 days 12/31/2022 Comments: Follow-up for evaluation and treatment of breast abscess With: Address: When: JAVIER MARY [address] [place] [address] [address] [place] [address] Business (1) In 3 days In the event that this physician does not participate in your insurance network, please consult with your insurance company to find a nearby participating provider. Patient Education Materials: Skin Abscess A MESSAGE TO ALL PATIENTS REGARDING OPIOIDS PRESCRIPTION OPIOIDS: WHAT YOU NEED TO KNOW Prescription opioids can be used to help relieve bdapdblm-vs-pklkbp pain and are often prescribed following a [...] and overdos (more content not included)... [facility] ED Note-Physicianon 12-12-19 ED Note-Physician Basic Information [...] MARY In 3 days 12/08/2022 EST [address], [facility] 2 [place] [address]- Business (1) Additional Instructions: Patient Education Venous Thromboembolism Prevention Deep Vein Thrombosis Simms Cyst Contusion, Exyc-yn-Qjke Bleeding Varicose Veins Attestation Patien (more content not included)... [facility] Comment on above: Result Comment: Elec tronically Signed By: Nichole Petit PA-C\.br\Date and Time Signed: 12/05/22 11:57 EST\.br\Electronically Co-Signed By: Bruno Dowell MD\.br\Date and Time Co-Signed: 12/11/22 17:54 EST Coding Summary.on 12-07-2022 Coding Summary. CD:[id number] Gh0bWw+PGhlYWQ+PE1FV NDvO68dkCQglB6WJ6eKT E9MUNPUKMCSMI9DAI6vz EP8YOovD0ZwgoGp SgyynVLxZM51UYr8YIK4 hIksXKhuxS3qvLCeU6t8 DrToJD68iA60NEjtSSDv RzT4NdNuvcpgaEVm B1zvAxKvjKTlZoe+PHRh YmxlIHdpZHRoPScxMDAl ZqImpNjaAU4mCg1mBRBd LWNvbGxhcHNlOiBj j4iiJOPiILpxEV6zfUxs B7BeiSQ8BYVaq8t4Py50 dHI+HDFzMZM9hZedUOsv j574DpVqv8lxUPU3 tMZaUFdaHRO9L36xz4D1 OCQyTMYnEJI6oQV8gH4w vWtccalbJ2KnfCDjGiS9 JUA8vLTekO8ptPrm jlmjwK4lHhy+K85EHG2W HYCTRG2PSyc6Z2GdWifx dHI+ID85MTEbXA76bFNb kAIbk5dcjHb2PoUs RQLxKLN4mInzCTlbl4Xb OBGgM58jnVWvz9I0PEPn uWepsAPdQdGhyOO5rR9k FBqxinvta5pcnugu Xrcnw6ncyd49gI95Y65k ZAhqTGVuYSU0NMXpKRVv hMsnma5ttG2tGk1+IDxj u2zuf9whvTw4IzTv QHDyvwDivWxwBGM1t2Bz Sy88S2LwaCpcr6FiTxa8 td06nIQxp6P0pWM1ARix GNNwsC6yFZanZaY7 KJSoDlBkuL68zXEhHOuu Un5pqHmxaKyzJT5qZFQp imyfYNXeaU3tRZDtfVWm wVddPX5kSWZoegww r767VcTvUIF4DHCkkKIg X1AtqD2oPfVmFXEgGPBt H5QsjOTkCDpjH176KDka HaB4TDCsjjNyK8Ds QEEbcTkmEwV2u4O3Pi2S g7LfquozXDP2UZfzLZSa KdQ6NgLhEoM6Z9YrUnr6 BIUstLbwWJ7rU5Nt CHFgxvdowenxqNI8BVYk MTAinI00oOPrGJuxKe6r n1Z0t522QVVsGZLizJ70 Ea6cmEscQXQqwBSU dN7ekynpt5ofytckDrQu ZKCySFk6YVf7CHMzbUep QvXoIUE9GbU7NFJ7sCOa nR7mpTmdmcgqtX6t Oyc+Q00bdN7lUWO7JRL6 bdmzJLMjzwXeWG23IO08 Z3BbWqewaSQizPZ+PGRp icIvmZalAJ4tOxQr f3oeu9PiETeqV4EgQALd YKrvHyf6OHQsYZB6yDO9 kX3qGFPxFJrwk1N4mSR6 N2ItasJgct2lm5so MTYhXHgnK71kzMMhg1G2 RIRkyPC2NMRitJujTmRy yC34Kfs+OMZqlEgai4Mr Xppgt9mmb1deyJt9 IjMwJSIgdmFsaWduPSJ0 k2VwIx04A19wRYblVIAk DWMxLCCyDTMuhJavxj9d sZ8tLk1+PGNvbCB3 iKS0tP0lIMWmRtM5TIxz Z983BsRrfDLrBohby5ew s2erpJn4IcSwNEPgjuTh wQieYSJ1r4VnGk90 N94jFQmvKPBbVTBxILXh ZPXuaCmplu8erY5yRg1+ VF2io4umli76lF98uYO+ CRUcOFT9zRafPJli GMMbhY4jLSygHdL1QUZn SxHxmS34rVPtEWqwLs2b uIstzXqqRV2hXNYvgawc o928EjTzc1tpBWRb bPHjYWxyLWO0J20oz3F1 FHWbDDEcKEQ5kZQ5mV8t bGlnbjogbGVmdDsgdmVy nWfsIByyBWhyL318 IHRvcDsnPlBhdGllbnQg BnAcFTp9W8CnWkz4ZUQz fOutLV6lfNEpFKicGf2a hRbgxAxpBJ3iHETv blwnk136TqOxo0cwVSIz pGPoORuwPMY8V62sd5G3 GCNrDYLcYXB5gKD7gQ9d bGlnbjogbGVmdDsg qgCsiIrsPKlrUOhvC002 IHRvcDsnPkJpcnRoIERh dCC9GA42FN27yFAoy6R3 lOS3P9HlHQSisywt xkzjgFK0NAYzSDYhtV74 Wo5ckGnrUf0hUAOeATD2 ATJeeXNfZ7ApjI8gQoAn JBVgRDJqQ2VzkEIg EMtsY619CCnnEeU7RWPa chEuJ2YfAXHjfQuuGcJ3 i4N9Dn3KW6S4HT33ZX32 gPOma6X2eCA9K2Pw BQVrqrlgqlnwjCF2KBFb EKSmzO92Sq9iiKhjFl0l HMWjVDB7BAMxlSWvS1Md uY4pXxEpJDDsBSUn X6IxtGBkUOghV336YCtj RoP6LPFpjwZlQ5YxOMFa dMgqJjN4b7E6Ci8UGJj4 BT51YI64iLMay7E1 zPB7C7WjMCIlvgwonwcn mCW2KBAgJUAliG41En1j gRedRa7yHLVpFXZ6XDJz nLSzQ7PbeL0eSwCo NWVaMIXoO4YukZLrDFyz C578VCbvGqQ5EZWujcCp L5ItIEFgdBefKiJ3i4P8 Ht6SCHZnUE84YSC0 pXT5NA63JX56K4PcBagu dGFibGU+PHRhYmxlIHdp ZHRoPScxMDAlJyBzdHls EK8gVb4fZNXbAUAt dRmfjFAlReFlz4liWKBw EZobFD3bnOxyL7ThpPA5 FDLkf8q8Ts06S52pT6Kg dXA+JUXxeJW2mGH7 kB2oNqCcAgH8GVoyB592 ZfPrmPRnCnssj7sbj2yz hOq3VoU8ZDEpeiCejEgn IOJ1l7CgUd18Q83w IHdpZHRoPSIxNSUiIHZh xQgfno7apH9xKk4+PGNv lOI5vVW7pH6gTgPkVtI8 XBldZ009ZhObjOOq Lioug7ybl9kyuNz3VjDn JMXiqeTxyQpnRDU4g4Gm Mg42M7WsxGgoq6GtVkq5 qk85qYOat1Y0pTL0 P8IzBRYhlnylkUDebCew XK5bFRXsgblyEJFgcY0q QZBkV8m0RkJdNcW5KZdk V4KjxhF7PGYjjIQe DHcnAKA2A38rp2D3WBVl ORNkINU9nAS9zB8gqJkz bjogbGVmdDsgdmVydGlj KYkiSHwuM554NYZh nYncVZTymY3pZXOdiALm xXosSK8eUPJyvnnhNhcR VVBLRSwgQkFSQkFSQSBF YB79UM11jPUbx4O4 uFQ4T3UkVMOsxtlzdhec vQB1KEExCUAfpA83hDRz EEiqSg0ou6H2u953ASMg FZJcgJ16Fn1rrNdi KYUxhGCBoU0otnivf1sh mepaLhLrHSDaXMi0KCd6 MMBrxJigKaRkWLK8UeJ3 EIW8hEYyhU5swDpe qmimxN0jOxz+MDEvMjYv TZs1CfjzpKK+PHRkIHN0 cZxoPDsaQZKanN4kWVNs I4r2PwQpCtF8KGbz Y5RaYBZgppiiPw29oT4j QrCyCqF8NArnU8UiyrT3 PKFvmKFxPYaoGPM9Q17v d0T8IPBgQPSiWZL1 tMN5qG9jhPfakflqkNBh dDsgdmVydGljYWwtYWxp L192LXPoiDxhAawfQBxj ZQLtGE56OL85xIOj a0Q5kRF1V3MdZYXpgaca vlnieST1WMZlERYdeN33 rETtVMcaWu2vh0K4r953 UQXwJWWewW22Js9m yKdjQSDfkFOVxL2wyzuz j0bhlvcvWzLpNHGrFUi9 JJs7PJQcrUviObNnGDN3 YeZ3ALS8wGMshA4x qEbwwyxsrC2mAac+RmVt WIzwZK33FC06aMRwv8S3 vTZ6Y7JxXXFrvlfttrdh tLW6QCXzDAQhyC68 bVXoLZtnNo2je9B5o402 DGPbWAZaxY64Oi4imTuh YBSdqUALvL2qbooyb2yc cjogIzAwMDAwMDt0 QBb1FJMbmKgtVfRoABS2 TzM5JNY4lHSeiM7hxBaw ilvidD0xTpp+WL1ritfp roQ0WC02QL41W1Gk PjwvdGFibGU+PHRhYmxl IHdpZHRoPScxMDAlJyBz kJwgFR0fEk3iTTTxUMRk pCjsgOOmIqSih0cn RKFpQApwLE1egWxvG7Fu wJW8DOMxa0j0Kt48U73y K2KyxNE+XJIccAV8jKB6 uC4tUzHtFbP6IJbc L051XlHeeGXbIejnq9qt d0fumSc7WoQiIPSxqcPo rBnaEHF7y2VoTx86A26z IHdpZHRoPSIyMCUi UEAjpPdfgo8jrA5hKd1+ WZCngDJ7aIG5aG9gBrKc OkF1IGarU343ZdHsrTTh XcmjZ59yT0WpbZE+ LREvOut4UITrsWbbXG2b jVShZVcpVs3jPJI7GvVa EvNgNZwgI3QjRGNayafc itznaGU9JHVyCTFo xX15Fj7hpOrvZq1hCKWy HXU6PWNmvJRfY6JjmQ8f JaAwHJImEHSsY6MkwZKz YWanK348HMjpGbB3 LVYhvvZhR4WdJBWrzKzp YoO2l2X2Ar1MrJaitPGs CT1aOpYnIRo3G6KpVap4 HKXjaJkcJG5stXXp YOimRl9ymEclaQwqVD3g PTUnnfzjp334YmXov2sb FUChlEPzXYdkYJJ1B76a c1S8WKZzGZOqWOG6 ePF2bP9rqCnwcnbvkFJo dDsgdmVydGljYWwtYWxp U921GCSmfMyuTiVZVvq7 L7FpOlt1VROuoRvy FO0ahEWkWTbtFq6rrAle hUzjVJ1vYDTaojfnb556 HmEnh4daAFHlgIKtQWma LVX8J04wt8H9VJBi LPNiGJM3mZM0zU2rhRcp bjogbGVmdDsgdmVydGlj WLkyOTgbU908VOJfkNwq Gr1QRdh4L3LxZcw6 BZByfAggCP7khZNsRNsp Go2kwJtmrBisHK4hCULu kbgoi852DgQsc4plGHMl sTDnMFluOET6Y34q o3C3AHHkHZQqAJG9aYF6 hG4coQmaaesecXQdsMdi xqAnvCcpFJobFSrzL918 IHRvcDsnPlBheWVy OjwvdGQ+HR93md30G1Go AjbnStu9LAIsBFE3uOZ0 wF3rMODtFWmtn5D4sPJ7 F4KawoUmga4xg5qt YXBz (more content not included)... [facility] Consent for Treatmenton 11-12 Consent for Treatment [id number] #1.00CD:127 [facility] Discharge Instructionson Discharge Instructions [id number] 1#1.00CD:127 [facility] ED Clinical Summaryon 2022 ED Clinical Summary [place] [id number] ED Clinical Summary Person Information Name: DARWIN HEART/[facility] Age: 82 Years : 1940 Sex: Female Language: Mozambican PCP: JAVIER MARY DO Marital Status: Phone: [phone] Visit Id: Visit Reason: Lower leg pain-swelling; [...] 09:52:34 12/05/2022 09:52:34 ADDRESS: [address] [place] [id number] [facility] NOTES: MEDICAL INFORMATION: Prescriptions Given: Medications [...] meals). fluticasone nasal (fluticasone 0.05 mg/inh Nasal [place]) 2 Sprays Nasal Inhalation every day. furosemide [...] Prevention; Deep Vein Thrombosis; Simms Cyst; Contusion, Jvjy-fy-Brwn; Bleeding Varicose Veins Follow up: With: Address: When: JAVIER MARY [address] [place] [address] Business (1) In 3 days 12/08/2022 DIAGNOSIS: 1:Contusion of left lower leg; 2:Varicose veins of lower limb [facility] ED Patient Education Noteon 12-05-2022 ED Patient [...] veins using minimally invasive surgery (subfascial endoscopic resolution expert vein surgery). This method may be used in advanced cases. Follow these instructions at home: Medicines ? Take and use wvmv-hbc-ctbeont and prescription medicines and creams only as [...] ? Ch (more content not included)... [facility] ED Patient Summaryon 023 ED Patient Summary [place] [id number] Patient Discharge Instructions Person Information Name: DARWIN HEART Age: 82 Years Arrival Date: 12/05/2022 09:12:17 Discharge Diagnosis: 1:Contusion of left lower leg; 2:Varicose veins of lower limb Primary Care Physician: JAVIER MARY DO Provider Information Primary Provider: [employer] Supervisor:None The exam and treatment you received in the Emergency Department were for an urgent problem and are not intended as complete care. It is important that you follow up with a doctor, nurse practitioner, or physician?s seed analysis laboratory assistant for ongoing care. If your symptoms [...] Follow-up Instructions: With: Address: When: JAVIER MARY [address] [place], [place] [id number] [facility] () In 3 days 12/08/2022 In the event that this physician does not participate in your insurance network, please consult with your insurance company to find a nearby participating provider. Patient Education Materials: Venous Thromboembolism Prevention; Deep Vein Thrombosis; Simms Cyst; Contusion, Uxmq-ky-Yuxi; Bleeding Varicose Veins A MESSAGE TO ALL PATIENTS REGARDING OPIOIDS PRESCRIPTION OPIOIDS: WHAT YOU NEED TO KNOW Prescription opioids can be used to help relieve wcumklmt-hh-gseupa pain and are often prescribed following a [...] care professio (more content not included)... [facility] Coding Summary.on 11-16-2022 Coding Summary. CD:[id number] Gh0bWw+PGhlYWQ+PE1FV CAtE86vzKGmzM2ZF8ePF Q3LOXPCZTWOUG9TXJ1kc NH3FMbtK7KgsrYn JczahTDyDM47BXp5OWT5 gMuqKDgbyI9axCDdF4r7 ZkOqLV05jO54GSxfYJMz CtQ7UhEuvjyovPXc G7wuTuEqtSAlFbb+PHRh YmxlIHdpZHRoPScxMDAl ZuQmiRogXG1cUk7uCTDf LWNvbGxhcHNlOiBj i2zzYVKsESpwBG1kiIoa Y5XvwVP8RLFuo3y5Sc41 dHI+KAGiRKR7kLflTNlg m957UdKmq1cgLBD8 rYJhDLjkVKZ8T24vp9R1 FXCmXEBfNBS4qYU7wM4y oTeaowjaJ7HadWAbNzM7 FME3vCQveO9krPwr yldhoT6iEtm+F99OXH1W BINGHO8RCfm2T8PiPxld dHI+PK77EJAyUA67xAOg iLXma4zbcGy2KrQc AMHzHQJ4iYunTBrqn7Fw WYNeH87oiMUiu3W4BFDe dHndgYIhEiNpfGJ2mQ7r GThjphfvh7gbwhxn Cfhkq7sxri34hY32T78y NZbvKDSvMHV1VBSfBBMq lZudnv6raA6bUa1+IDxj p6dwh8qayBw0ZePg GKGcbpTdkFbiHYN3l3Aq Ag46P8RicZper9FiQnn5 ff72fFHjn9O9dIB4BAbe IJRqjK6pXRcbMqM8 QYWgBtDoxT03tKJwNZcy Te7ifUyehUvxTN9rMSXb iosvPMUmmE0nOMEbaRNx iWvjTC1mWUSmjwzr a463GyPmWFG8SUAcyECl G6OxqG5kQqBiIOClNZNy G4AlbIWoFWgzN124ILyk PcX1LSMnceVoU1Ub GARisRcgIwJ7b0K4Oh7O f4FodsctRJM0WLlyOGGz TiJ4OyQvXyD9X7SoEvn8 JTEvsMpuUS9fA6Ts XXOvnqjoxvbxaPC6BQBr KVJneO08qOZbWQgtFj8m e7E3e402IGUaDHIzeZ90 Bw2jyXbpIFCmfZYA uS8xaolgk0sdfzfaVjBu OLYeBIj9CIo0HMFiwMrz MeXkGJS9ImR6QDU1yUJq gF1shXubqefaqM7j Oyc+J55guD4aAUC7SJX6 qzpzKOIbvjTjYH86OG01 S6YpYunobZMcvCE+PGRp dkKlfCbyJK0hTtGq h0sgc1CkLAmtQ8ZmHQHz ZXclYqp9MYAfDFZ7zAO5 vM0vDDEuSNvoj2Z9jRJ4 Y1OoyuLvdu5qm6lr NOPaLKdrE99pqSZkc4R4 GZWikOQ5FJJhiSajSoJe qQ72Kgv+GVKtuRftx8Ch Qhxgo1fbd3nhvDr6 IjMwJSIgdmFsaWduPSJ0 p9YaPz56B33sMVowQUIt LMXnIHSqSBMwnKajwl7n zN8bZj0+PGNvbCB3 iIV6eT3yOMNnEjZ2OVat D340NvGuhQSkCdlpm8zo n5tsaYy9GuVcBFPiarXe tUzfBYW5d4CnLb83 Q62tKYcuNMPcBEPaYOOm LIBweFjisr1jtD2iOt4+ MJ3vk4oysw69yW78bNU+ GACiUOS2dKkhYLfa QZQuzL9cLPoxKcX3DJQm AvUtkN57bRXgWIkuPb6u kScevXqxFH1rREAaoals g329KyNdw3csQKVx iFEyKXajNLN7O02sk6H1 LJXyRQWvRKA0nNF5fY6h bGlnbjogbGVmdDsgdmVy lJvuDMtrEXtcC691 IHRvcDsnPlBhdGllbnQg KnBcLZl0T9EiRxa6IFFu bZjdFH3awMIsWMyqNh1r cWwczRhrKW6zKANr vnglp140ZcYvh9ffUFPk xYAmVIfnWLW4Z31jc3P7 KHTvXVRiVYL0kGZ1bC4b bGlnbjogbGVmdDsg koEbkMouTOxcBPuaO354 IHRvcDsnPkJpcnRoIERh hGZ7PH21FN57uWQkl0T3 nRX2I4KsTKGgjesl fekkmAN3VMTuQUTsuI90 Nv0ehRtaSk7hTZWhGWX9 XUHbkGItK4IesY1fKsMd TXFvVIEfD8UxrXGj CNmeB014HClsBiU0LFUt abZqB7JhLNTrpTswEwR7 r5W5Fj9OF3L7LU66SK28 lYFae8V6pKO9X2Co BKNqbpuhfzxxeJT8LQQn TSRjxL34Jx7vfIwiRq8g UOCfBDG1PKImbYZpT8Lh hX1xFnBnVUNeXAUn Z0JspCRtOEimX813TSen DrN3RSSwfeOvD9HgBYZc vRyjQwY6y1I7Nq2UERq8 LC26XK42iZVvo5I3 zFL1A5AhSFLigzowelum qRA4RQXjTDPphT84Kc8p jYqpXe1sPYYzYCO0XUAo hORrS6LjzB5xRbDw YKKuPDAeY1BqvTRwPYkb T321JFycAjE0QDQsthNk J4ArDOYxyBpzOzI6d5E1 Cb3ZXTKcJZ34EZF4 mTB6UY30VF51Q6QrWgpq dGFibGU+PHRhYmxlIHdp ZHRoPScxMDAlJyBzdHls UR0cHq9fBVKaZIDs oGahsBOuKqMmc7ojKONo AZbjWA4mdZxnB7QuyOP5 JRAmv5d0Id10K37eG6Tt dXA+QHPswYZ0zRM6 wT7wSnWwBkT0YQllM598 ZjGqyYIyWukby9ngm7qj rSq1YgY9GTVoigCjaSlg EFI2e5YjQf77Y13x IHdpZHRoPSIxNSUiIHZh jNwvtg6rgB8rKm6+PGNv rDN9oVT2bB8uVxFoRjO2 HQdqK181QwOczNBa Rwwke7gys6izoEi6EjOl BJZfdzRaeGbxGLT8x2Dy Ly19V5PoeAmkh7DbYse4 zd40hZHqa3K4xYZ4 J2JwOOWpcnzciEFuhNaq YG3eYVOtsvisYRMysL2k JEBxP8t6AlLnCvQ9PWyl Z0YzbxL7MDWybOCo XQddXNN3T09zd3W3OQQz UUNvKCO1aQP1xN5yuDfv bjogbGVmdDsgdmVydGlj UQsgHWzpJ821SPAi pEyiZPCkaR0rREAqkCWj kBufEG0eBUOqsmryNgbM VVBLRSwgQkFSQkFSQSBF GF57MJ24qERdi3B3 gFP2R2TyCSDlrkuqljdk eMY0PJNiZBWdtF46iJLq JLciMu1fh1U7b952EVCw BIGxbT36Kj5zrTwf EAMniTUJnQ5kbmbzh1hg cwdiEkYcMPPaQJb5MTi0 MXMdbCunZmMcRZE0OmZ3 KBJ0oYYeqJ0grJkn yiqqeF6iSkr+MDEvMjYv SQf9PggbpLG+PHRkIHN0 nNepNCbiPDZynP6bRXUw H0g3KoYnYjA4JDld V9CpQCJdphfiHh79rT3o NuFiQpT2PFwxH0ObhtD6 KBKqtSPjSGsxZTF7N26n u1S6UGUiHSUgTFJ4 uPT9jA4rsCcgicyleNDu dDsgdmVydGljYWwtYWxp C925JRJszHbkDvwdGQhb PNOhXH57NU38eFFg w3T4iXZ1K0RoXWFrbqqo uxnnfKT6DMOnFQNckF89 hQAwXKbiAv7lh4K3u308 XHKrLMBqqP89Oc3h tIizABInrIPIkT9qxtdt i8ubxuluMnQyYWHmOHw8 AMm0JWSmpCtjQkPkPQD5 PmW6UPP2mPRgmB3s iDewvmfwsV5xIeu+RmVt CMhvTR22KQ81cCTvi7T3 nUL7C7WvFYSoajyyaxfy xZM8CRVrSKYajI20 zEViTBlfFv7va5W2p889 QCEmBMWwiN34Bu8hyTey WFSgsYUUwL0bznpct7rr cjogIzAwMDAwMDt0 XWc9QTBgeXmrZsDcKVX4 KrH6RSR1qDUitS4xsZxc nvkbsT9jRtf+HR0pqxgo xtG8XS51TV17S8Uq PjwvdGFibGU+PHRhYmxl IHdpZHRoPScxMDAlJyBz xVopLT1iJr8iHTMpISHw sQyhlPWrMxVds3xz KCZoKYfvAD0gxIctY1Sv eGK3KSXiu3z8Fy73K68r F0RlqDM+LZVoyAX4tRO9 zB9sVxZfNhD0OKkz O563YoHtdPAiDesev0gu z5jzpEa4ApBzAVVrdhFw mDafMBJ3f6XnNj18U71c IHdpZHRoPSIyMCUi ZJFyhXmpeb2btH6fUg8+ QENvgMF3kAG4jD8fQhCr SrG6NIrvE924StPejJXj XptvV43eH6EwaAY+ WXZsMhz3NTBbaWzrHU4f pICiISjtPf6dWJV9UvJu LvObLWjcD8FjYOVhwpit mxxlzMP2MHYzMQEo gQ91Ks8vbPgwTb4qTIZy BZB4ESHjfIHdB6CgnF0i OvOcEENyOCPeA1VbfJGp XFjqB557UXuzOeX8 TOQzycMlO6AeTXXtbEcr EhI9a8J4Pm7GqAoojGKt TG3yOhTsZJo1W6AyTrm3 UDAqgCekOX5teNLi CYknSd1rgJdbtYapYG8o JBHtujfcv519ZaXio2zy NIGpeTIfOMrfBMM1N00w m4K6LJKsWQEnFEG7 bRQ8eA3leWddvhwuqKPh dDsgdmVydGljYWwtYWxp G086SLPjsHgwQbROCel6 H6IqLad3YSPonAco JP4qeCZiJElpVi5xbLcu dCtpDG3dWRPzijocf815 NfMht2lmRFRksBDjTPgf IOU9H43zq2K7OWSw YQYqNFE5aCD6pM8xaQvc bjogbGVmdDsgdmVydGlj VDhhYXwqA963MLUytGme Ca1DShn2Y0KtJac3 VRYkxIgwWE0hbOZyWXrv Ix5eiWszhHsrDO9uYPOr voryb044MjYbp8kgTYEv pHZnADyeLVL0E03w d5H2LPXqQSLlAXV7rDA7 hF2tbFaffeapjBXxdJwt qdXlqFuhEVegUSobK858 IHRvcDsnPlBheWVy OjwvdGQ+DB94rc12T4Hl WmtqTnx7QBLpWFI5dJL1 fV3aSWNcHXrwq6Z1lIO4 M7ZgcvAmwu8wj2gi YXBz (more content not included)... [facility] Consent for Treatmenton Consent for Treatment [id number] #1.00CD:127 [facility] Discharge Instructionson Discharge Instructions [id number] #1.00CD:127 [facility] ED Clinical Summaryon 2022 ED Clinical Summary [place] [id number] ED Clinical Summary Person Information Name: DARWIN HEART [facility] Age: 82 Years : 1940 Sex: Female Language: Mozambican PCP: JAVIER MARY DO Marital Status: Phone: [phone] Visit Id: Visit Reason: Hand pain-swelling; RIGHT [...] 11/12/2022 13:16:10 11/12/2022 13:16:10 [place] [facility] [place] [id number] PHYS DOC NOTES: MEDICAL INFORMATION: Prescriptions Given: Medications to Continue Taking That Have Changed [facility] [address] [place], [place] [id number], [phone] START: cephalexin (Keflex 500 mg Cap) 1 [...] meals). fluticasone nasal (fluticasone 0.05 mg/inh Nasal [place]) 2 Sprays Nasal Inhalation every day. furosemide [...] Follow up: With: Address: When: JAVIER DRAPERGLES [address] [place], [place] [id number] Business (1) In 3 days 11/15/2022 DIAGNOSIS: Cellulitis; Wrist pain [facility] ED Note-Physicianon 11-12-19 ED Note-Physician Basic Information [...] days, # 30 cap(s), Refills(s) 0, Pharmacy: [facility], 165, cm, 11/12/22 11:52:00 EST, Height/Length [...] 3 days 11/15/2022 EST [address], [facility] [address] [place] [address]- [facility] (1) Additional Instructions: Patient Education Cellulitis, Adult Attestation Patient seen and evaluated by the physician seed analysis laboratory assistant. Attending physician was present in the emergency department and supervised care. This visit was performed by both the physician and an APC. I performed all aspects of the MDM as documented. This report was transcribed using voice recognition software. Every effort was made to ensure accuracy, however, inadvertently computerized candy mixer mistakes may be present. Appropriate healthcare PPE [...] mg/inh N (more content not included)... [facility] Comment on above: Result Comment: Elec tronically [...] these instructions at home: Medicines ? Take gted-wpx-njtloer and prescription medicines only as told by [...] as antibiotic medicines or antihistamines. ? Take cmzu-ott-wcftvkp and prescription medicines only as told by [...] Reviewed: 02/16/2019 Elsevier Patient Education ? 2019 [employer]. [facility] ED Patient Summaryon 023 ED Patient Summary [address] [address] Patient Discharge Instructions Person Information Name: DARWIN HEART Age: 82 Years Arrival Date: 11/12/2022 11:39:42 Discharge Diagnosis: Cellulitis; Wrist pain Primary Care Physician: JAVIER MARY DO Provider Information Primary Provider: Sanjeev Johnston DO [employer] Supervisor:Clyde Alas PA-C The exam and treatment you received in the Emergency Department were for an urgent problem and are not intended as complete care. It is important that you follow up with a doctor, nurse practitioner, or physician?s seed analysis laboratory assistant for ongoing care. If your symptoms [...] Follow-up Instructions: With: Address: When: JAVIER MARY [address] [place], [place] [id number] Business (1) In 3 days 11/15/2022 In the event that this physician does not participate in your insurance network, please consult with your insurance company to find a nearby participating provider. Patient Education Materials: Cellulitis, Adult A MESSAGE TO ALL PATIENTS REGARDING OPIOIDS PRESCRIPTION OPIOIDS: WHAT YOU NEED TO KNOW Prescription opioids can be used to help relieve bzwbipri-bk-thiykm pain and are often prescribed following a [...] be struggling with addiction, tell your health reservoir caretaker and ask for guidance or call [facility] Nanalysis Helpline at 2-322-437-[employer]. ProtoExchange Source: [place] (more content not included)... [facility] XR Wrist 3+ Views Righton XR Wrist [...] V. Transcribed by: JOLEEN Technologist: MOHAN [facility] Office Visit (Cardiology)on 10-20-2022 Follow-up visit [...] NEEDED. amLODIP (more content not included)... [facility] Tobacco Screening.on 023 Adult depression screening assessment No [facility] 600 DO Work Phone: Fall risk assessment a) No falls within the last year [facility] DO Work Phone: Tobacco use status CP b) No [facility] 600 DO Work Phone: Coding Summary.on 10-01-2022 Coding Summary. CD:[id number] Gh0bWw+PGhlYWQ+PE1FV UVwN32inMMzyL6OM8rYR C5JYBCHIBPBMY3LUA3yp PN0TCgdO6MrmqVp UoopjNDdEB06OMf1TXF9 rXygUQhhjR5qkVJsO0j0 NpNfBE24pB43TTlcFYLq NnT9OkOhhgxhwXDi X1avRwAcjHJpDeb+PHRh YmxlIHdpZHRoPScxMDAl DzHwuWymSU4zZr7uGBZf LWNvbGxhcHNlOiBj [id number] H9YgnJJ6VVFpe1n7Qz03 dHI+VWLwWUI3pJnoESss d929JwBcg4mxPQB7 xBHwNNdsUHB2L44vh3E3 CKRsUEFqNWE0mAX8pZ0e xVddjicqJ0OswMKpTcA4 QIK9sZHoqZ6oaUid pluylM9aXja+L41UHQ7P BERBCV4WDay2K1PlTndt dHI+JL00UZJfWD65yIHv pPJde5aojRg3KvXs MZEbXBU4mQlzRJlhh3Ew FIUfY24kbYZla7F5KQEt rEqssXEuAtPnbIH0zY8u WFqclhzwl9usggjn Elhjh1wviw79lV98I07s XRzmGVAzQLH1EIRmKOYm zHwboz9meS3jKd7+IDxj d5ymq4gyfYv4CsGz DGDbxdVlwRpwXQH4s9Bc Fy21N8StcFeaj5SlStf5 yz67hEMpn1S7cEF9VLky HDRrbE9ySMifHdX2 TLJyVnXcqN41oYJaWAgc Wd3cxTzhwZunRX0yUGAt ebmsOIYmvW9bNQRkuFNb vBfsHD6wLPHamagq i858DpVqCQW2SCFxdBRo P0SpiR4mFhAnOGSlBKPj I2OytQYkYVryR496RDst CpB5TBSxrcLxY8Bt PZHalMtkRsD1i8Z3Qs6T t4LrnwbaTSN7BYeiTEAf ZoKvHxBiWmR9N0ScLte9 LYHrxRowMI4tL8Fx EVWijhluuouiaKA1NCVv WKAikE29vEOcKIhrAs3d f5D1n201TGBjLABosI82 Jw2aoDnwGVLpxWBP fS1knbhcv8pqoqupVnPj TISkEUr8ZLb0EMEmxAom HxDtTTL9WiR5SSX2gKRd fR0pcCubrhuapM0v Oyc+T51awM5dYTX2EIH5 nzmcBNDoqnRhZC00VV92 G3DjRrbdpAEmwWS+PGRp vuKtyNrzTE4oNgHm n2qne3BxQJavQ4ByKVTf WNiyYik8QVUkGCD6bBN4 dV6sZNFtYHxnw6S2lPH7 X7WibgWyvr4ir0qn VXHlNMreA37bmYFnq4W7 UJKdlHA6AOHsvEjqMbKy oS85Kwe+ACRysMpgx6Vg Tabro0yjz7gowHy8 IjMwJSIgdmFsaWduPSJ0 h4MkYu35X78rTAwnWIRu MRUeXLCtYQUgxZsxwf2x sO0bXl6+PGNvbCB3 oXN8kC7zKNCeEnB6HJwv A960AwHpmRUaIbteb4ds e2xagUk3LyFpGDNzdzFk qRiyBUF6r1YfDd68 V86rKZiwMEYwQZXiRUBq GHWbqQmlgd8pgC1sAi4+ AC7ko7dedu40fE48iNX+ MNDaGVB0nOufCUre UVVqzM7vRLufRlX8AIBc EtQveW14hROvESrqFe7h aCklhRweCN7aLGNjlbto x241CsWvc2gePQOs uSGaSQyzFLM2Y50hr6O7 AKKcLRJyPRG5oKQ9sU0i bGlnbjogbGVmdDsgdmVy cAezBOitXRutZ594 IHRvcDsnPlBhdGllbnQg ZsKbIIp8B9TqHwb2PBMn qQspBI5kwAWhYEpbNj9v aGprpChjLC1oEXTa hwazt445QnFct6gtIFLy pADgJXxyDPH0E10ih4X7 OVKmSAAtOAB3jTG9nL0z bGlnbjogbGVmdDsg kaWylUjmMKqpPVuhP096 IHRvcDsnPkJpcnRoIERh yUV6AQ24PC93eGCmd2D2 xMF8S3AqGWAnlphp empovTV8GXEqBACmpL12 Rt7yvHhaXb0aDHIsFWG5 YOHtcIGpO2BmxD5aJmKg WPXnVCJjC9UttQKz GWqoT415UOcoAhW2YMLf ycBsO6KjBNFzsHmdMgY4 v7Y9Vv4RC5I1CI10TE98 rRTtl0N7xRE6Z8Ld TGKvkakuluscoUZ4AUSo ORYmjZ07Nf1uxBnzDq6y ECXjKJS4HOEmbCScP6Xb uG6eXuAuNCBmKAWk T9InuQKpCInkC241SBqy BeB9PJMxfkZyT4FxZEIr rUlsGyN1d8Z6Tx1OVGf4 IS92UA07iGHzf4L0 qZA7W6FeDHPrcrvvvdbc xWC6UIHyBADkcX75Ln9i mQfkJp5iDWVyFFY8DJZm aDKpC2LsgY8rQdAx GCJnZBEjP3JnuCXaWNyf D371TYuuHrO1QOSwdhNb W0UxMXBrmBgdZkJ5r9Q4 Cx4SJUYvNS77IKE8 mXJ8DZ17SO11U2JdMull dGFibGU+PHRhYmxlIHdp ZHRoPScxMDAlJyBzdHls NS9bUh4uUOQnXZNa xOwpeBPpXsXjx0viJTYt SGkpMI7zvPpfE8RtdEF9 OSJow1h8Yl10Q06vT9Dq dXA+FJYpnSM6xUX8 dO1aEuThPrZ5ORmdA534 ZpBzbAHbDbxww0gbw2aq gDx0RtG9JSNwoyRmjHzf IHB1r3WyIh10G91r IHdpZHRoPSIxNSUiIHZh pQwova7vuH3kKp3+PGNv xHM2tYC2gD1gNiRrAjH5 FAsuZ104PcMknGCx Nrlca0lcv7oxqXd8RkPj PIZhneXttNviCEK1y3Ao Aj06R5FtgLwah3DwWsv1 qc75uQXql6S4oDC0 R2CkCJDjlbklvJPriGtt FA1fZYCvxxkgXZYjkU0p DLMwK3z9HpArVzN7DRhf E2UwrxX4KCSevQHb ERupYNM4V62ho5O1UWYa DTYpKGS7zVJ1rW8hnTsg bjogbGVmdDsgdmVydGlj RZntXXxaS749VFSl wGkxNKDucI7jWEWuqDOt nSekLL8wSFUewwhqTtjP VVBLRSwgQkFSQkFSQSBF AO80NE90cAEhj9T1 jRS2Y3MdKXTortscgihl hVB8XXMvCFWsqD26hZXe QVidXf1lf2V0q524ONGd IYAlyK33Sf7uuGyj HYWiqHOTxJ7pajtjg6pj cgetTjAdPPVoQRj8FFr1 CFJsrHzeBjIcFSL5RdR0 KKI1eBQbrV1gpWvs ulvjmU5lAwt+MDEvMjYv GMv7PocpyAS+PHRkIHN0 dIudCTmdKYCdbG6bCTDg G9j8KaDwYjJ3ZDkn X6BjWUYxaivgCn81iX7j RlExYkG4AFgpY1GzxmN5 HNBxaBSqJMtqAQK8I22x p8J2EAOkYJWlZXJ1 xMX2hP4nzReoebgxbVIt dDsgdmVydGljYWwtYWxp C249KMOqcFuxJvp3AUug YLTkQW72CV18eHSf u9U2kQI9S5DmRBTmtgli cppwtSR8IAVlGNQgqR56 uFOuSNpiRn5fo2M1i789 UDJoMCTceH37Pr0n oFikYZQhyPKAmX3qmatc q0aogjuyHdCzJQJtDBq3 MSo1PIKvkSifWtPiXZO9 ThB5AEJ1iYParF7h oLykcltvxA7vKpd+RmVt DFuvMP21HO15zJMtl8H5 fDW7X4ZtSHJerhnhtvyt lRR6IUJfHZJzdP97 rVEnPUddPk3ms6U4v357 WUQtCGJmwZ81Ch4nnZhz YWJubRSFyG7nripra5wa cjogIzAwMDAwMDt0 PPp9AYVhiAsvXrMuJXF1 QeD6KDZ8mWUruF1mjGin eefntI2qPgr+Q1Y7oWO3 aWVudDwvdGQ+PC90 ey32O4ZoFglyXmx3QWNn CTR3cFJ3gW2iRPZgRLmz l0T5pJW2U5UmjnUhwz3u a8gcUCGlECbvE18d fBYnd5Y4TITzcYV5ETZb tQqcGaBgeT16Swj+PGNv rRcix8XcYbeev4uar5pj iBg0QyVgSQKdjpPp iKliZSZ7j6RwAh87D58e IHdpZHRoPSIzMCUiIHZh uAkhie7cfN1eHn1+PGNv xYX7fBV5oZ7iUuPf JcJ2SXnyF171PoAntJJc Rjsbd2afq7vtzAl2CrEe DLTpdqAkgVspZRC9m6Vx Rh67M5YzgEwri4Gk Emk5ye02oMFxu5J0cLQ2 H0YuXPJkwrobtAForAfz AZ8bCKCdoajzTVKayG5a SIPtC0o2BjLhMaJ2 NSalC0LhgbT7YVYxyLTa HYRfsXBIvK7psoozr0rw jbwsZrQaPYSoTDt1PDk5 LWFsaWduOiBsZWZ0 BmL8SNK7bABtnN4usBck odeclV0qLwy+ZWr8t6yt pPXrLO6uuTR9BX19PH25 xCObo2Y3pTW6C9Sj TGGpmqabrgheeNY1MFWx ZBLwaN28Au4btIhbHi2v TTXrJHO9XTJrkIJoA1Sb yA6oYhLyYZDeBPMz P3BqmISiSEjqQ109MTaq BhA6YHAtzaLpZ0ZrHLEy hDdzXqA7j6I1Fv8YHW34 VT82IU96vXLqd8T7 cXZ1M6FvPORtbggpzmul jYU6PAWjGPNvlN02Gf3o nUgcYe7fYBNnTLK5FSUv zIHcA7RdmA8bPzOk GHHlDNAtR6AydCHxWJrr D273UUboMfG3VJNhwfIj W8IgIINkpVmeJaX6q6C0 Gd6KUd88EU74DJ97 xBMjc9K5xRV9M6TkETIr cktunkoiwRK5HFBuOXUh fC23Rq7tyOuxEl8sRMCo XQG1LISieZFjK0Jd sH1sIaCnFOVrCSGtD0Zi uASfMWfdT183GYtnAaD7 ZSGxcxJwI2FgXUElhHks RaK8g0H9Kb4EFOsy jgv9N8TjLrinaAX+PC90 OLKvQW79sCNpqLHty9wn wHi1PpAwWQEeEKS0kUvz TDpmt5PiXSSgE80i bGFw (more content not included)... Normal [facility] John 09-28-2022 ALT No additional P-5'-P [Catalytic activity/Vol] 17 Int._Unit/L Normal 6-46 [facility] Comment on above: Performed By: #### 1 [id number], [id number], 5819685, [id number] #### [facility] [address] [place] [address] Ryder 09-28-2022 AST [Catalytic activity/Vol] 18 Int._Unit/L Normal 5-43 [facility] Comment on above: Performed By: #### 1 [id number], 4650258, 6076763, 4807251 #### [facility] [address] [place] [address] BMPon 09-28-2022 Anion gap [Moles/Vol] 12 mmol/L Normal 6-16 [facility] Comment on above: Performed By: #### 1 [id number], 8734779, 0250259, 8629674 #### [facility] [address] [place] [address] Calcium [Mass/Vol] 10.0 mg/dL Normal 8.9-11.1 [facility] Comment on above: Performed By: #### 1 3327425, 8689965, 4840208, 9984286 #### [facility] [address] [place] [address] Chloride [Moles/Vol] 102 mmol/L Normal 101-111 [facility] Comment on above: Performed By: #### 1 [id number], 3706839, 1514791, 5314256 #### [facility] [address] [place] [address] CO2 [Moles/Vol] 30 mmol/L Normal 21-31 [facility] Comment on above: Performed By: #### 1 [id number], 7094836, 7675571, 1964134 #### [facility] [address] [place] [address] Creatinine [Mass/Vol] 1.0 mg/dL Normal 0.5-1.3 [facility] Comment on above: Performed By: #### 1 3426795, 5710069, 5591867, 8473186 #### [facility] [address] [place] [address] Glucose [Mass/Vol] 114 mg/dL Normal 55-199 [facility] Comment on above: Result Comment: If t his glucose result represents a fasting glucose, interpretation should refer to the following reference range: 55-99 mg/dL Performed By: #### 1 [id number], 9367800, 7667611, 1393932 #### [facility] [address] [place] [address] Potassium [Moles/Vol] 4.3 mmol/L Normal 3.5-5.3 [facility] Comment on above: Performed By: #### 1 9297839, 0386486, 4496195, 1060707 #### [facility] [address] [place] [address] Sodium [Moles/Vol] 140 mmol/L Normal 135-145 [facility] Comment on above: Performed By: #### 1 7915861, 0507740, 0668130, 8936031 #### [facility] [address] [place] [address] Urea nitrogen [Mass/Vol] 29 mg/dL High 5-21 [facility] Comment on above: Performed By: #### 1 2002839, 8884015, 9072148, 2331929 #### [facility] [address] [place] [address] Urea nitrogen/Creatinine [Mass ratio] 29 No Units High 10-20 [facility] Comment on above: Performed By: #### 1 7573898, 3035047, 1654019, 2065183 #### [facility] [address] [place] [address] CBC w/Indiceson 09-28-2022 Erythrocyte distribution width (RBC) [Ratio] 14.0 % Normal 10.9-14.2 [facility] Comment on above: Performed By: #### 1 4494534, 5390926, 8795767, 9611007 #### [facility] [address] [place] [address] Hematocrit (Bld) [Volume fraction] 39.9 % Normal 34.0-46.0 [facility] Comment on above: Performed By: #### 1 0295193, 1875646, 0910774, 3755861 #### [facility] [address] [place] [address] Hemoglobin (Bld) [Mass/Vol] 13.1 g/dL Normal 12.0-16.0 [facility] Comment on above: Performed By: #### 1 1714881, 7709803, 1477163, 6879809 #### [facility] [address] [place] [address] MCH (RBC) [Entitic mass] 29.6 pg Normal 27.0-34.0 [facility] Comment on above: Performed By: #### 1 2845481, 6098774, 8536061, 1457734 #### [facility] [address] [place] [address] MCHC (RBC) [Mass/Vol] 32.9 g/dL Normal 31.4-36.0 [facility] Comment on above: Performed By: #### 1 2841546, 1650696, 7966141, 3639581 #### [facility] [address] [place] [address] MCV (RBC) [Entitic vol] 90.0 fL Normal 80.0-100.0 [facility] Comment on above: Performed By: #### 1 2292227, 0954454, 7996021, 7400271 #### [facility] [address] [place] [address] Platelet mean volume (Bld) [Entitic vol] 7.7 fL Normal 6.4-10.8 [facility] Comment on above: Performed By: #### 1 9412265, 1542875, 0259261, 4663751 #### [facility] [address] [place] [address] Platelets (Bld) [#/Vol] 187.0 E9/L Normal 150.0-500.0 [facility] Comment on above: Performed By: #### 1 2898567, 1825438, 9906688, 4359552 #### [facility] [address] [place] [address] RBC (Bld) [#/Vol] 4.4 E12/L Normal 4.3-5.9 [facility] Comment on above: Performed By: #### 1 9293088, 7956152, 9828498, 0002116 #### [facility] [address] [place] [address] WBC corrected for nucl RBC Auto (Bld) [#/Vol] 7.2 E9/L Normal 4.0-11.0 [facility] Comment on above: Performed By: #### 1 5900751, 3885080, 5347201, 2634488 #### [facility] [address] [place] [address] CHEMISTRYOrdered By: SYSTEM SYSTEM on 09-28-2022 ALT [...] rate/Area] mL/min/1.73 m2 Normal >=59mL/min/1 .73 m2 [facility] Chem S GFR/1.73 sq M.predicted among non-blacks MDRD (S/P/Bld) [Vol rate/Area] 53 mL/min/1.73 m2 Low >=59mL/min/1 .73 m2 [facility] Chem S Glucose [Mass/Vol] 114 mg/dL Normal [...] Treatmenton 09-10 Consent for Treatment [id number] #1.00CD:127 Normal [facility] HEMATOLOGYOrdered By: Noelle Daly on 09-28-2022 Hemoglobin [...] 7.2 E9/L Normal 4.0 - 11.0 E9/L [facility] HemeAutoSS Laboratory - Chemistry and C hemistry - challengeon 09-28-2022 Cholesterol [Mass/Vol] 92 mg/dL Normal <=129 [facility] 600 DO Work Phone: Cholesterol in LDL [Mass/Vol] 9 mg/dL Normal 7-40 [facility] 600 DO Work Phone: Laboratory - Chemistry and C hemistry - challengeOrdered By: SYSTEM SYSTEM on 09-28-2022 CO2 [Moles/Vol] 30 mmol/L Normal 21-31 [facility] Marino mack Laboratory - Hematology and Cell countsOrdered By: Noelle Daly on 09-28-2022 Erythrocyte distribution width (RBC) [Ratio] 14.0 % Normal 10.9-14.2 [facility] HemeAutoSS Hematocrit (Bld) [Volume fraction] 39.9 % Normal 34.0-46.0 [facility] S Platelet mean volume (Bld) [Entitic vol] 7.7 fL Normal 6.4-10.8 [facility] HemeAut oSS Lipid Panelon 09-28-2022 Cholesterol [Mass/Vol] 197 mg/dL Normal 120-200 [facility] Comment on above: Performed By: #### 1 [id number], 7674839, 9600194, 2927583 #### [facility] [address] [place] [address] Cholesterol in HDL [Mass/Vol] 91 mg/dL Invalid Interpretation Code [facility] Comment on above: Result Comment: HDL > or equal to 60 mg/dL: Low cardiovascular risk HDL < 40 mg/dL : High cardiovascular risk Performed By: #### 1 [id number], 7761891, 0826513, 7274982 #### [facility] [address] [place] [address] Cholesterol in LDL [Mass/Vol] 92 mg/dL Normal <=129 [facility] Comment on above: Performed By: #### 1 9915231, 2548145, 7260404, 1098909 #### [facility] [address] [place] [address] Cholesterol in VLDL [Mass/Vol] 9 mg/dL Normal 7-40 [facility] Comment on above: Performed By: #### 1 9044691, 5347442, 6713170, 1999140 #### [facility] [address] [place] [address] Triglyceride [Mass/Vol] 47 mg/dL Normal <=149 [facility] Comment on above: Performed By: #### 1 8480268, 5597191, 1762308, 3787056 #### [facility] [address] [place] [address] No Panel Informationon 09-28 187.0 {E9/L} Normal 150.0-500.0 [facility] 600 DO Work Phone: 90.0 fL Normal 80.0-100.0 [facility] 600 DO Work Phone: 32.9 {gm/dL} Normal 31.4-36.0 [facility] 600 DO Work Phone: 29.6 pg Normal 27.0-34.0 [facility] 600 DO Work Phone: 13.1 {gm/dL} Normal 12.0-16.0 [facility] 600 DO Work Phone: 4.4 {E12/L} Normal 4.3-5.9 [facility] DO Work Phone: 7.2 {E9/L} Normal 4.0-11.0 [facility] 600 DO Work Phone: 12 {mEq/L} Normal 6-16 [facility] DO Work Phone: 102 mmol/L Normal 101-111 [facility] DO Work Phone: 4.3 mmol/L Normal 3.5-5.3 [facility] Work Phone: 140 mmol/L Normal 135-145 [facility] Work Phone: 10.0 mg/dL Normal 8.9-11.1 [facility] DO Work Phone: 29 {No_Units} above high threshold 10-20 [facility] DO Work Phone: 1.0 mg/dL Normal 0.5-1.3 [facility] DO Work Phone: 29 mg/dL above high threshold 5-21 [facility] DO Work Phone: 114 mg/dL Normal 55-199 [facility] 600 DO Work Phone: Comment on above: If this glucose resu lt represents a fasting glucose, interpretation should refer to the following reference range: 55-99 mg/dL >60 Normal >=59 [facility] 600 DO Work Phone: Comment on above: eGFR is race adjuste d. AA=. 53 {mL/min/1.73_m2} below low threshold >=59 [facility] 600 DO Work Phone: Comment on above: Chronic kidney disea se could be indicated at eGFR's of less than 60 mL/min/1.73m2. Kidney failure is indicated at less than 15 mL/min/1.73m2. 17 {Int._Unit/L} Normal 6-46 [facility] 600 DO Work Phone: 18 {Int._Unit/L} Normal 5-43 [facility] 600 DO Work Phone: 47 mg/dL Normal <=149 [place] [address] DO Work Phone: 91 mg/dL [facility] 600 DO Work Phone: Comment on above: HDL > or equal to 60 mg/dL: Low cardiovascular riskHDL < 40 mg/dL : High cardiovascular risk 197 mg/dL Normal 120-200 [facility] 600 DO Work Phone: Physician Orderon 09-28-2022 Physician Order [id number] #1.00CD:127 Normal [facility] eGFRon 09-28-2022 GFR/1.73 sq M.predicted among blacks MDRD (S/P/Bld) [Vol rate/Area] mL/min/{1.73_m2} Normal >=59 [facility] Comment on above: Order Comment: Order Added by Discern Expert. Result Comment: eGFR is race adjusted. AA=. Performed By: #### 1 [id number], 6339277, 4732925, 7227885 #### [facility] [address] [place] [address] GFR/1.73 sq M.predicted among non-blacks MDRD (S/P/Bld) [Vol rate/Area] 53 mL/min/1.73 m2 Low >=59 [facility] Comment on above: Order Comment: Order Added by Discern Expert. Result Comment: [employer] karl kidney disease could be indicated at eGFR's of less than 60 mL/min/1.73m2. Kidney failure is indicated at less than 15 mL/min/1.73m2. Performed By: #### 1 [id number], 5625089, 8969255, 8436796 #### [facility] [address] [place] [address] Tobacco Screening.on Adult depression screening assessment No [facility] 600 DO Work Phone: Fall risk assessment a) No falls within the last year [facility] DO Work Phone: Tobacco use status CPHS b) No [facility] 600 DO Work Phone: A1C HEMOGLOBINon 03-16-2022 HbA1c (Bld) [Mass fraction] 5.2 % [facility] Other HbA1c (Bld) [Mass fraction]o n 03-16-2022 A1C HEMOGLOBIN [place] [employer] Other Tobacco Screening.on Fall risk assessment a) No falls within the last year [facility] DO Work Phone: Tobacco use status CPHS b) No [facility] DO Work Phone: No Panel Informationon 10-29 25.0\S\25.0 Normal 22.0-30.0 [facility] 250 DO Work Phone: Comment on above: PERFORMED BY:[facility] [place], [place] [id number] MEDICAL DIRECTORROBERTO CARLOS MURILLO M.D. 102\S\102 Normal 95-114 [facility] 250 DO Work Phone: 4.2\S\4.2 Normal 3.5-5.1 [facility] DO Work Phone: 140\S\140 Normal 136-146 [facility] 250 DO Work Phone: Laboratory - Microbiology an d Antimicrobial susceptibilityon 10-27-2021 SARS-CoV-2 (COVID-19) RNA GISSEL+probe Ql (Unsp spec) [facility] 250 DO Work Phone: No Panel Informationon 10-27 Negative Normal Negative [place] [address] DO Work Phone: Comment on above: This is a duplicate Sharifa SARS Antigen (JAYMIE) result to be used for statistical tracking purpose only.PERFORMED BY:[facility] [place], [place] [id number] MEDICAL DIRECTORROBERTO CARLOS MURILLO M.D. Falls Risk Screeningon 10-14 Fall risk assessment a) No falls within the last year [facility] 250 DO Work Phone: Falls Risk Screeningon 09-24 Fall risk assessment b) One or more fall s in the last year [facility] 600 DO Work Phone: Tobacco use status CPHS b) No [facility] 600 DO Work Phone: A1C HEMOGLOBINon 09-15-2021 HbA1c (Bld) [Mass fraction] 5.6 % [facility] Other HbA1c (Bld) [Mass fraction]o n 09-15-2021 A1C HEMOGLOBIN [employer] Other CBC AUTO DIFFon 12-15-2018 Basophils #/vol (Bld) 0.0 103/ul Normal 0.0-0.1 [facility] Comment on above: Performed By: #### C BC ####[facility] [address] [place] [id number] [place] Basophils/100 WBC (Bld) 0.4 % Normal 0.2-2.0 [facility] Comment on above: Performed By: #### C BC ####[facility] [address] [place] [address] [place] Eosinophils #/vol (Bld) 0.1 103/ul Normal 0.0-0.7 [facility] Comment on above: Performed By: #### C BC ####[facility] [address] [place] [address] [place] Eosinophils/100 WBC (Bld) 0.7 % Critically low 0.9-7.0 [facility] Comment on above: Performed By: #### C BC ####[facility] [address] [place] [address] [place] Erythrocyte distribution width Ratio (RBC) 13.2 % Normal 11.0-15.0 [facility] Comment on above: Performed By: #### C BC ####[facility] [address] [place] [address] [place] Hematocrit Volume Fraction (Bld) 34.9 % Critically low 36.0-48.0 [facility] Comment on above: Performed By: #### C BC ####[facility] [address] [place] [address] [place] Hemoglobin mass conc (Bld) 11.4 g/dL Critically low 12.0-16.0 [facility] Comment on above: Performed By: #### C BC ####[facility] [address] [place] [address] Bry[place] IG # 0.06 10e3/ul Critically high 0.00-0.03 [facility] Comment on above: Performed By: #### C BC ####[facility] [address] [place] [address] Bryanna IG % 0.6 % Critically high 0.0-0.5 [facility] Comment on above: Performed By: #### C BC ####[facility] [address] [place] [address] [place] Lymphocytes #/vol (Bld) 2.0 103/ul Normal 1.2-3.8 [facility] Comment on above: Performed By: #### C BC ####[facility] [address] [place], [place] [id number] Gould Lymphocytes/100 WBC (Bld) 18.9 % Critically low 20.5-60.0 [facility] Comment on above: Performed By: #### C BC ####[facility] [address] [place] [address] [place] MANUAL DIFF REQ NO Normal [facility] Comment on above: Performed By: #### C BC ####[facility] [address] [place] [address] [place] MCH Entitic mass (RBC) 30.2 pg Normal 26.7-34.0 [facility] Comment on above: Performed By: #### C BC ####[facility] [address] [place] [address] Bryanna MCHC mass conc (RBC) 32.7 g/dL Normal 29.9-35.2 [facility] Comment on above: Performed By: #### C BC ####[facility] [address] [place] [address] Bryanna MCV Entitic volume (RBC) 92.3 fL Normal 81.0-99.0 [facility] Comment on above: Performed By: #### C BC ####[facility] [address] [place] [address] Bryanna Monocytes #/vol (Bld) 0.9 103/ul Critically high 0.3-0.8 [facility] Comment on above: Performed By: #### C BC ####[facility] [address] [place], [place] [id number] Gould Monocytes/100 WBC (Bld) 8.3 % Normal 1.7-12.0 [facility] Comment on above: Performed By: #### C BC ####[facility] [address] [place] [address] Bryanna Neutrophils #/vol (Bld) 7.6 103/ul Critically high 1.4-6.5 [facility] Comment on above: Performed By: #### C BC ####[facility] I[address] Bryanna Neutrophils/100 WBC (Bld) 71.1 % Normal 43.0-75.0 [facility] Comment on above: Performed By: #### C BC ####[facility] [address] [place] [address] Bryanna Platelet mean volume Entitic volume (Bld) 9.5 fL Normal 9.5-13.5 [facility] Comment on above: Performed By: #### C BC ####[facility] [address] [place] [address] Bryanna Platelets #/vol (Bld) 151 103/ul Normal 150-450 [facility] Comment on above: Performed By: #### C BC ####[facility] [address] [place] [address] Bryanna RBC #/vol (Bld) 3.78 106/ul Critically low 4.20-5.40 [facility] Comment on above: Performed By: #### C BC ####[facility] [address] [place] [address] Bryanna WBC #/vol (Bld) 10.7 103/ul Normal 4.0-11.0 [facility] Comment on above: Performed By: #### C BC ####[facility] [address] [place] [address] Bryanna PROF CHEM 8 (BAS METB)on Anion gap molar conc 7.1 mmol/L Normal [facility] Comment on above: Performed By: #### B MP ####[facility] [address] [place] [address] Bryanna Calcium mass conc 9.5 mg/dL Normal 8.4-10.2 [facility] Comment on above: Performed By: #### B MP ####[facility] [address] [place] [address] Bryanna Chloride molar conc 109 mmol/L Critically high 98-107 [facility] Comment on above: Performed By: #### B MP ####[facility] [address] [place] [address] Bryanna CO2 molar conc 30.0 mmol/L Normal 22.0-30.0 [facility] Comment on above: Performed By: #### B MP ####[facility] [address] [place] [id number] Bryanna Creatinine mass conc 0.93 mg/dL Normal 0.52-1.04 [facility] Comment on above: Performed By: #### B MP ####[facility] Qousqgkspv[address] [place] EGFR-AF JAPANESE >60 Normal >=60 The [facility] Comment on above: Performed By: #### B MP ####[facility] [address] [place] [address] Bryanna EGFR-NON AF JAPANESE 59 mL/min/1.73m2 Critically low >=60 [facility] Comment on above: Performed By: #### B MP ####[facility] [address] [place] [address] Bryanna Glucose mass conc 95 mg/dL Normal 74-106 The [facility] Comment on above: Performed By: #### B MP ####[facility] [address] [place] [address] Bryanna Potassium molar conc 4.1 mmol/L Normal 3.4-5.0 [facility] [facility] Comment on above: Performed By: #### B MP ####[facility] [address] [place] [address]Gerken Bryanna Sodium molar conc 142 mmol/L Normal 137-145 [facility] Comment on above: Performed By: #### B MP ####[facility] [address] Bryanna Urea nitrogen mass conc 18.0 mg/dL Critically high 7.0-17.0 [facility] Comment on above: Performed By: #### B MP ####[facility] [address] [place], [place] [address]Zkdcdi Karen Urea nitrogen/Creatinine mass ratio 19.4 mg/mg Normal [facility] Comment on above: Performed By: #### B MP ####[facility] [address] [place], [place] [address]Hcjrnu Bryanna CBC AUTO DIFFon 12-14-2018 Basophils #/vol (Bld) 0.0 103/ul Normal 0.0-0.1 [facility] Comment on above: Performed By: #### C BC #### [facility] [address] [id number] Marie Bryanna Basophils/100 WBC (Bld) 0.1 % Critically low 0.2-2.0 [facility] Comment on above: Performed By: #### C BC #### [facility] [address] [place] [address] Marie Bryanna Eosinophils #/vol (Bld) 0.0 103/ul Normal 0.0-0.7 [facility] Comment on above: Performed By: #### C BC #### [facility] [address] [place], [place] [id number] Marie Bryanna Eosinophils/100 WBC (Bld) 0.0 % Critically low 0.9-7.0 [facility] Comment on above: Performed By: #### C BC #### [facility] [address] [place], [place] [id number] Mariejluis Gould Erythrocyte distribution width Ratio (RBC) 12.7 % Normal 11.0-15.0 [facility] Comment on above: Performed By: #### C BC #### [facility] [address] [place], [place] [id number] Mariejluis Gould Hematocrit Volume Fraction (Bld) 37.3 % Normal 36.0-48.0 [facility] Comment on above: Performed By: #### C BC #### [facility] [address] [place], [place] [address] Mariejluis Gould Hemoglobin mass conc (Bld) 12.6 g/dL Normal 12.0-16.0 [facility] Comment on above: Performed By: #### C BC #### [facility] [address] [id number] Marie Bryanna IG # 0.12 10e3/ul Critically high 0.00-0.03 [facility] Comment on above: Performed By: #### C BC #### [facility] [address] [id number] Marie Bryanna IG % 0.7 % Critically high 0.0-0.5 [facility] Comment on above: Performed By: #### C BC #### [facility] [address] [place] [address] Marie Bryanna Lymphocytes #/vol (Bld) 1.0 103/ul Critically low 1.2-3.8 [facility] Comment on above: Performed By: #### C BC #### [facility] [address] [place] [address] Marie Bryanna Lymphocytes/100 WBC (Bld) 5.9 % Critically low 20.5-60.0 [facility] Comment on above: Performed By: #### C BC #### [facility] [address] [place], [place] [id number] Marie Gould MANUAL DIFF REQ NO Normal [facility] Comment on above: Performed By: #### C BC #### [facility] [address] [place] [address] Mariejluis Gould MCH Entitic mass (RBC) 30.2 pg Normal 26.7-34.0 [facility] Comment on above: Performed By: #### C BC #### [facility] [address] [place] [address] Mariejluis Gould MCHC mass conc (RBC) 33.8 g/dL Normal 29.9-35.2 [facility] Comment on above: Performed By: #### C BC #### [facility] [address] [place] [address] Marie Bryanna MCV Entitic volume (RBC) 89.4 fL Normal 81.0-99.0 [facility] Comment on above: Performed By: #### C BC #### [facility] [address] [place], [place] [address] Marie Bryanna Monocytes #/vol (Bld) 1.0 103/ul Critically high 0.3-0.8 [facility] Comment on above: Performed By: #### C BC #### [facility] [address] [id number] Marie Bryanna Monocytes/100 WBC (Bld) 6.3 % Normal 1.7-12.0 [facility] Comment on above: Performed By: #### C BC #### [facility] [address] [place], [place] [id number] Marie Bryanna Neutrophils #/vol (Bld) 14.1 103/ul Critically high 1.4-6.5 [facility] Comment on above: Performed By: #### C BC #### [facility] [address] [place], [place] [address] Marie Bryanna Neutrophils/100 WBC (Bld) 87.0 % Critically high 43.0-75.0 [facility] Comment on above: Performed By: #### C BC #### [facility] [address] [place], [place] [address] Marie Bryanna Platelet mean volume Entitic volume (Bld) 9.6 fL Normal 9.5-13.5 [facility] Comment on above: Performed By: #### C BC #### [facility] [address] [place], [place] [address] Marie Bryanna Platelets #/vol (Bld) 188 103/ul Normal 150-450 [facility] Comment on above: Performed By: #### C BC #### [facility] [address] [place], [place] [address] Marie Bryanna RBC #/vol (Bld) 4.17 106/ul Critically low 4.20-5.40 [facility] Comment on above: Performed By: #### C BC #### [facility] [address] [place], [place] [address] Marie Bryanna WBC #/vol (Bld) 16.2 103/ul Critically high 4.0-11.0 [facility] Comment on above: Performed By: #### C BC #### [facility] [address] [id number] Mariejluis Yehen GLYCOHEMOGLOBIN A1Con 2018 Glucose mass conc 126 mg/dL Normal [facility] Comment on above: Performed By: #### A 1C #### [facility] [address] [id number] Marie Bryanna Hemoglobin A1c/Hemoglobin.total mass fraction (Bld) 6.0 % Normal <=6.0 [facility] Comment on above: Performed By: #### A 1C #### [facility] [address] [id number] Mariejluis Yehen PROF CHEM 8 (BAS METB)on Anion gap molar conc 10.8 mmol/L Normal [facility] Comment on above: Performed By: #### B MP #### [facility] [address] [place], [place] [address] Marie Bryanna Calcium mass conc 9.6 mg/dL Normal 8.4-10.2 [facility] Comment on above: Performed By: #### B MP #### [facility] [address] [id number] Marie Bryanna Chloride molar conc 106 mmol/L Normal 98-107 [facility] Comment on above: Performed By: #### B MP #### [facility] [address] [place], [place] [address] Marie Bryanna CO2 molar conc 27.3 mmol/L Normal 22.0-30.0 [facility] Comment on above: Performed By: #### B MP #### [facility] [address] [id number] Marie Bryanna Creatinine mass conc 1.20 mg/dL Critically high 0.52-1.04 [facility] Comment on above: Performed By: #### B MP #### [facility] [address] [id number] Marie Bryanna EGFR-AF JAPANESE 53 mL/min/1.73m2 Critically low >=60 [facility] Comment on above: Performed By: #### B MP #### [facility] [address] [id number] Marie Bryanna EGFR-NON AF JAPANESE 44 mL/min/1.73m2 Critically low >=60 [facility] Comment on above: Performed By: #### B MP #### [facility] [address] [id number] Marie Gould Glucose mass conc 151 mg/dL Critically high 74-[address] [facility] Comment on above: Performed By: #### B MP #### [facility] [address] [address] Marie Gould Potassium molar conc 4.1 mmol/L Normal 3.4-5.0 [facility] Comment on above: Performed By: #### B MP #### [facility] [address] [address] Marie Gould Sodium molar conc 140 mmol/L Normal 137-145 [facility] Comment on above: Performed By: #### B MP #### [facility] [address] [address] Marie Gould Urea nitrogen mass conc 25.0 mg/dL Critically high 7.0-17.0 [facility] Comment on above: Performed By: #### B MP #### [facility] [address] [id number] Marie Gould Urea nitrogen/Creatinine mass ratio 20.8 mg/mg Normal [facility] Comment on above: Performed By: #### B MP #### [facility] [address] [place] [address] Marie Gould XR HEEL LT 2Von 12-13-2018 XR HEEL LT 2V [address] [place], [place] [id number] Patient: [facility] Exam Date: 12/13/2018 : 1940 Gender:F Ordering : DR. DARVIN CortezPBridger Admission #: [id number] Family : Order #: [id number] CLICK HERE TO VIEW EXAM RADIOLOGY REPORT [...] M.D. on 12/13/2018 at 13:14 Normal [facility] CBC AUTO DIFFon 12-06-2018 Basophils #/vol (Bld) 0.0 103/ul Normal 0.0-0.1 [facility] Comment on above: Performed By: #### C BC #### [facility] [address] [place] [address] Marie Bryanna Basophils/100 WBC (Bld) 0.6 % Normal 0.2-2.0 [facility] Comment on above: Performed By: #### C BC #### [facility] [address] [place] [address] Marie Bryanna Eosinophils #/vol (Bld) 0.1 103/ul Normal 0.0-0.7 [facility] Comment on above: Performed By: #### C BC #### [facility] [address] [place] [address] Marie Bryanna Eosinophils/100 WBC (Bld) 1.1 % Normal 0.9-7.0 [facility] Comment on above: Performed By: #### C BC #### [facility] [address] [place] [address] Mariejluis Gould Erythrocyte distribution width Ratio (RBC) 13.0 % Normal 11.0-15.0 [facility] Comment on above: Performed By: #### C BC #### [facility] [address] [place] [address] Mariejluis Yehen Hematocrit Volume Fraction (Bld) 41.8 % Normal 36.0-48.0 [facility] Comment on above: Performed By: #### C BC #### [facility] [address] [place], [place] [address] Marie Gould Hemoglobin mass conc (Bld) 13.9 g/dL Normal 12.0-16.0 [facility] Comment on above: Performed By: #### C BC #### [facility] [address] [place] [address] Marie Gould IG # 0.03 10e3/ul Normal 0.00-0.03 [facility] Comment on above: Performed By: #### C BC #### [facility] [address] [place] [address] Marie Gould IG % 0.5 % Normal 0.0-0.5 [facility] Comment on above: Performed By: #### C BC #### [facility] [address] [place] [address] Marie Gould Lymphocytes #/vol (Bld) 1.7 103/ul Normal 1.2-3.8 [facility] Comment on above: Performed By: #### C BC #### [facility] [address] [place] [address] Marie Gould Lymphocytes/100 WBC (Bld) 26.4 % Normal 20.5-60.0 [facility] Comment on above: Performed By: #### C BC #### [facility] [address] [place] [address] Marie Gould MANUAL DIFF REQ NO Normal [facility] Comment on above: Performed By: #### C BC #### [facility] [address] [place] [address] Marie Gould MCH Entitic mass (RBC) 30.3 pg Normal 26.7-34.0 [facility] Comment on above: Performed By: #### C BC #### [facility] [address] [place] [address] Marie Gould MCHC mass conc (RBC) 33.3 g/dL Normal 29.9-35.2 [facility] Comment on above: Performed By: #### C BC #### [facility] [address] [place] [address] Marie Gould MCV Entitic volume (RBC) 91.3 fL Normal 81.0-99.0 [facility] Comment on above: Performed By: #### C BC #### [facility] [address] [place], [place] [address] Marie Bryanna Monocytes #/vol (Bld) 0.5 103/ul Normal 0.3-0.8 [facility] Comment on above: Performed By: #### C BC #### [facility] [address] [place], [place] [address] Marie Bryanna Monocytes/100 WBC (Bld) 7.4 % Normal 1.7-12.0 [facility] Comment on above: Performed By: #### C BC #### [facility] [address] [place], [place] [address] Marie Bryanna Neutrophils #/vol (Bld) 4.2 103/ul Normal 1.4-6.5 [facility] Comment on above: Performed By: #### C BC #### [facility] [address] [id number] Marie Bryanna Neutrophils/100 WBC (Bld) 64.0 % Normal 43.0-75.0 [facility] Comment on above: Performed By: #### C BC #### [facility] [address] [place], [place] [address] Marie Bryanna Platelet mean volume Entitic volume (Bld) 9.4 fL Critically low 9.5-13.5 [facility] Comment on above: Performed By: #### C BC #### [facility] [address] [id number] Marie Bryanna Platelets #/vol (Bld) 182 103/ul Normal 150-450 [facility] Comment on above: Performed By: #### C BC #### [facility] [address] [place], [place] [address] Marie Bryanna RBC #/vol (Bld) 4.58 106/ul Normal 4.20-5.40 [facility] Comment on above: Performed By: #### C BC #### [facility] [address] [place], [place] [address] Marie Bryanna WBC #/vol (Bld) 6.6 103/ul Normal 4.0-11.0 [facility] Comment on above: Performed By: #### C BC #### [facility] [address] [address] Marie Gould PROF CHEM 8 (BAS METB)on Anion gap molar conc 12.2 mmol/L Normal [facility] Comment on above: Performed By: #### B MP #### [facility] [address] [address] Marie Bryanna Calcium mass conc 10.2 mg/dL Normal 8.4-10.2 [facility] Comment on above: Performed By: #### B MP #### [facility] [address] [address] Marie Bryanna Chloride molar conc 103 mmol/L Normal 98-107 [facility] Comment on above: Performed By: #### B MP #### [facility] [address] [place] [address] Marie Bryanna CO2 molar conc 31.7 mmol/L Critically high 22.0-30.0 [facility] Comment on above: Performed By: #### B MP #### [facility] [address] [address] Marie Bryanna Creatinine mass conc 0.78 mg/dL Normal 0.52-1.04 [facility] Comment on above: Performed By: #### B MP #### [facility] [address] [address] Marie Bryanna EGFR-AF JAPANESE >60 Normal >=60 [facility] Comment on above: Performed By: #### B MP #### [facility] [address] [address] Marie Bryanna EGFR-NON AF JAPANESE >60 Normal >=60 [facility] Comment on above: Performed By: #### B MP #### [facility] [address] [address] Marie Bryanna Glucose mass conc 103 mg/dL Normal 74-106 [facility] Comment on above: Performed By: #### B MP #### [facility] [address] [address] Marie Bryanna Potassium molar conc 3.9 mmol/L Normal 3.4-5.0 [facility] Comment on above: Performed By: #### B MP #### [facility] [address] [place] [address] Marie Gould Sodium molar conc 143 mmol/L Normal 137-145 [facility] Comment on above: Performed By: #### B MP #### [facility] [address] [place] [address] Mariejluis Gould Urea nitrogen mass conc 21.0 mg/dL Critically high 7.0-17.0 [facility] Comment on above: Performed By: #### B MP #### [facility] [address] [place] [address] Mariejluis Gould Urea nitrogen/Creatinine mass ratio 26.9 mg/mg Normal [facility] Comment on above: Performed By: #### B MP #### [facility] [address] [place] [address] Mariejluis Gould PROTIMEon 12-06-2018 INR Coag RelTime (PPP) 1.01 {INR} Normal [facility] Comment on above: Performed By: #### P T, PTT #### [facility] [address] [place] [address] Mariejluis Gould Prothrombin time (PT) Coag time (PPP) 10.4 s Normal 9.0-11.6 [facility] Comment on above: Performed By: #### P T, PTT #### [facility] [address] [place] [address] Marie Bryanna Prothrombin time (PT) Coag time (PPP) PLEASE NOTE: NORMAL RANGE CHANGE 06-28-2014 DUE TO REAGENT LOT CHANGE Normal [facility] Comment on above: Performed By: #### P T, PTT #### [facility] [address] [place] [address] Marie Bryanna Prothrombin time (PT) Coag time (PPP) SEE BELOW Normal [facility] Comment on above: Result Comment: KARLY RED INR: 2.0 - 3.0 CONDITIONS NOT LISTED BELOW 2.5 - 3.5 FOR PROSTHETIC HEART VALVE REPLACEMENT 2.5 - 3.5 RECURRENT THROMBOSIS Performed By: #### P T, PTT #### [facility] [address] [place], [place] [address] Marie Gould PTTon 12-06-2018 aPTT Coag time (Bld) PLEASE NOTE: NORMAL RANGE CHANGE 09-04-2015 DUE TO REAGENT LOT CHANGE Normal [facility] Comment on above: Performed By: #### P T, PTT #### [facility] [address] [place], [place] [address] Marie Gould aPTT Coag time (Bld) 30.5 s Normal 22.3-36.2 [facility] Comment on above: Performed By: #### P T, PTT #### [facility] [address] [id number] Marie Gould XR ANKLE LT MIN 3 Von 2018 XR ANKLE LT MIN [address] [place] [id number] Patient: [facility] Exam Date: 11/18/2018 : 1940 Gender:F Ordering : DARVIN RobertBetty NOLASCOLYDIA Admission #: [id number] Family : Order #: [id number] CLICK HERE TO VIEW EXAM RADIOLOGY REPORT [...] Balderas M.D. on 11/18/2018 at 15:26 Normal [facility] XR FOOT LT MIN 3 VIEWSon XR FOOT LT MIN [address] [place] [id number] Patient: DAWRIN HEART Exam Date: 11/18/2018 : 1940 Gender:F Ordering : DARVIN HUTCHINS Admission #: [id number] Family : Order #: [id number] CLICK HERE TO VIEW EXAM RADIOLOGY REPORT [...] Balderas M.D. on 11/18/2018 at 15:25 Normal [facility] Vital Signs Date Time Vital Sign Value Performing Clinician Facility 09-20-2023 16:00-0500 Body height 160.02 cm Javier Usman Other [facility] Other 09-20-2023 16:00-0500 Body mass index (BMI) [Ratio] 26.04 kg/m2 Javier Usman Other [facility] Other 09-20-2023 16:00-0500 Body temperature 97.9 [degF] Javier Usman Other [facility] Other 09-20-2023 16:00-0500 Body weight 66.68 kg Javier Usman Other [facility] Other 09-20-2023 16:00-0500 Diastolic blood pressure 70 mm[Hg] Javier Usman Other [facility] Other 09-20-2023 16:00-0500 Respiratory rate 20 /min Javier Usman Other [facility] Other 09-20-2023 16:00-0500 SaO2% (BldA) [Mass fraction] 99 % Javier Usman Other [facility] Other 09-20-2023 16:00-0500 Systolic blood pressure 140 mm[Hg] Javier Usman Other [facility] Other 06-21-2023 10:45-0400 Body height 160.02 cm Javier Usman Other [facility] Other 06-21-2023 10:45-0400 Body mass index (BMI) [Ratio] 24.8 kg/m2 Javier Usman Other [facility] Other 06-21-2023 10:45-0400 Body temperature 96 [degF] Javier Usman Other [facility] Other 06-21-2023 10:45-0400 Body weight 63.5 kg Javier Usman Other [facility] Other 06-21-2023 10:45-0400 Diastolic blood pressure 82 mm[Hg] Javier Usman Other [facility] Other 06-21-2023 10:45-0400 Respiratory rate 20 /min Javier Usman Other [facility] Other 06-21-2023 10:45-0400 SaO2% (BldA) [Mass fraction] 97 % Javier Usman Other [facility] Other 06-21-2023 10:45-0400 Systolic blood pressure 116 mm[Hg] Javier Usman Other [facility] Other 06-02-2023 09:33-0400 Body height 162.56 cm Javier M Usman Work Phone: [facility] [employer] 600 DO Work Phone: 06-02-2023 09:33-0400 Body mass index (BMI) [Ratio] 24.55 kg/m2 Javier M Usman Work Phone: [facility] 600 DO Work Phone: 06-02-2023 09:33-0400 Body surface area Derived from formula 1.7 m2 Javier M Usman Work Phone: [facility] [employer] 600 DO Work Phone: 06-02-2023 09:33-0400 Body weight 64.86 kg Javier M Us[facility] Work Phone: 06-02-2023 09:33-0400 Diastolic blood pressure 70 mm[Hg] Javier M Usman Work Phone: [facility] [employer] 600 DO Work Phone: 06-02-2023 09:33-0400 Heart rate 60 /min Javier M Usman Work Phone: [facility] 600 DO Work Phone: 06-02-2023 09:33-0400 Systolic blood pressure 136 mm[Hg] Javier M Usman Work Phone: [facility] [employer] 600 DO Work Phone: 05-10-2023 13:30-0400 Body height 160.02 cm Javier Usman Other [facility] Other 05-10-2023 13:30-0400 Body mass index (BMI) [Ratio] 25.51 kg/m2 Javier Usman Other [facility] Other 05-10-2023 13:30-0400 Body temperature 97.7 [degF] Javier Usman Other [facility] Other 05-10-2023 13:30-0400 Body weight 65.32 kg Javier Usman Other [facility] Other 05-10-2023 13:30-0400 Diastolic blood pressure 58 mm[Hg] Javier Usman Other [facility] Other 05-10-2023 13:30-0400 Respiratory rate 20 /min Javier Usman Other [facility] Other 05-10-2023 13:30-0400 SaO2% (BldA) [Mass fraction] 94 % Javier Usman Other [facility] Other 05-10-2023 13:30-0400 Systolic blood pressure 110 mm[Hg] Javier Usman Other [facility] Other 04-21-2023 16:30-0400 Body height 160.02 cm Jaiver Usman Other [facility] Other 04-21-2023 16:30-0400 Body mass index (BMI) [Ratio] 26.21 kg/m2 Javier Usman Other [facility] Other 04-21-2023 16:30-0400 Body temperature 98 [degF] Javier Usman Other [facility] Other 04-21-2023 16:30-0400 Body weight 67.13 kg Javier Usman Other [facility] Other 04-21-2023 16:30-0400 Diastolic blood pressure 62 mm[Hg] Javier Usman Other [facility] Other 04-21-2023 16:30-0400 Respiratory rate 20 /min Javier Usman Other [facility] Other 04-21-2023 16:30-0400 SaO2% (BldA) [Mass fraction] 97 % Javier Usman Other [facility] Other 04-21-2023 16:30-0400 Systolic blood pressure 108 mm[Hg] Javier Usman Other [facility] Other 02-17-2023 14:12-0400 Blood Pressure Location Paul Cannony [facility] 02-17-2023 14:12-0400 Diastolic blood pressure 71 mm[Hg] Paul Lingmariaelenay [facility] 02-17-2023 14:12-0400 Heart rate 65 /min Paul Lingurany [facility] 02-17-2023 14:12-0400 SaO2% (BldA) [Mass fraction] 97 % Paul Sushilurany [facility] 02-17-2023 14:12-0400 Systolic blood pressure 152 mm[Hg] Paul Mourany [facility] 02-17-2023 13:47-0400 Blood Pressure Location Paul Mourany [facility] 02-17-2023 13:47-0400 Diastolic blood pressure 73 mm[Hg] Paul Mourany [facility] 02-17-2023 13:47-0400 Heart rate 63 /min Paul Mourany [facility] 02-17-2023 13:47-0400 SaO2% (BldA) [Mass fraction] 95 % Paul Mourany [facility] 02-17-2023 13:47-0400 Systolic blood pressure 157 mm[Hg] Paul Mourany [facility] 02-17-2023 11:57-0400 Heart rate 58 /min Paul Mourany [facility] 02-17-2023 11:57-0400 SaO2% (BldA) [Mass fraction] 94 % Paul Mourany [facility] 02-17-2023 11:56-0400 Diastolic blood pressure 78 mm[Hg] Paul Mourany [facility] 02-17-2023 11:56-0400 Mean blood pressure 99 mm[Hg] Paul Mourany [facility] 02-17-2023 11:56-0400 Systolic blood pressure 142 mm[Hg] Paul Mourany [facility] 02-17-2023 11:56-0400 Body temperature 96.8 [degF] Paul Mourany [facility] 02-17-2023 11:54-0400 Respiratory rate 16 /min Paul Mourany [facility] 01-11-2023 13:40-0400 Diastolic blood pressure 81 mm[Hg] Paul Mourany [facility] [place] 01-11-2023 13:40-0400 Heart rate 71 /min Paul Lingurany [facility] 01-11-2023 13:40-0400 SaO2% (BldA) [Mass fraction] 98 % Paul Lingurany [facility] 01-11-2023 13:40-0400 Systolic blood pressure 158 mm[Hg] Paul Mourany [facility] [place] 01-04-2023 10:34-0400 Blood Pressure Location Palu Mourany [facility] [place] 01-04-2023 10:34-0400 Diastolic blood pressure 78 mm[Hg] Paul Lingurany [facility] 01-04-2023 10:34-0400 Heart rate 69 /min Paul Lingurany [facility] 01-04-2023 10:34-0400 SaO2% (BldA) [Mass fraction] 97 % Paul Lingurany [facility] 01-04-2023 10:34-0400 Systolic blood pressure 147 mm[Hg] Paul Mourany [facility] 12-28-2022 16:29-0400 Body temperature 98.42 [degF] Paul Puneet [facility] [facility] 12-28-2022 16:29-0400 Diastolic blood pressure 79 mm[Hg] Paul Puneet [facility] 12-28-2022 16:29-0400 Heart rate 81 /min Paul Puneet [facility] 12-28-2022 16:29-0400 Respiratory rate 18 /min Paul Teixeira [facility] 12-28-2022 16:29-0400 SaO2% (BldA) [Mass fraction] 99 % Paul Teixeira [facility] 12-28-2022 16:29-0400 Systolic blood pressure 151 mm[Hg] Paul Teixeira [facility] 11-30-2022 14:45-0500 Body height 160.02 cm Javier Usman Other [facility] Other 11-30-2022 14:45-0500 Body mass index (BMI) [Ratio] 26.92 kg/m2 Javier Usman Other [facility] Other 11-30-2022 14:45-0500 Body temperature 97.6 [degF] Javier Usman Other [facility] Other 11-30-2022 14:45-0500 Body weight 68.95 kg Javier Usman Other [facility] Other 11-30-2022 14:45-0500 Diastolic blood pressure 64 mm[Hg] Javier Usman Other [facility] Other 11-30-2022 14:45-0500 Respiratory rate 20 /min Javier Usman Other [facility] Other 11-30-2022 14:45-0500 SaO2% (BldA) [Mass fraction] 97 % Javier Usman Other [facility] Other 02-20-2023 14:45-0500 Systolic blood pressure 124 mm[Hg] Javier Usman Other [facility] [employer] Other 11-12-2022 11:47-0500 Body temperature 97.88 [degF] Sanjeev Johnston [facility] 11-12-2022 11:47-0500 Diastolic blood pressure 81 mm[Hg] Sanjeev Preston [facility] 11-12-2022 11:47-0500 Heart rate 72 /min Sanjeev Johnston [facility] 11-12-2022 11:47-0500 Respiratory rate 19 /min Sanjeev Johnston [facility] 11-12-2022 11:47-0500 SaO2% (BldA) [Mass fraction] 97 % Sanjeev Johnston [facility] 11-12-2022 11:47-0500 Systolic blood pressure 153 mm[Hg] Sanjeev Johnston [facility] 10-20-2022 11:14-0500 Diastolic blood pressure 62 mm[Hg] Javier M Usman Work Phone: [facility] [employer] 600 DO Work Phone: 10-20-2022 11:14-0500 Systolic blood pressure 135 mm[Hg] Javier M Usman Work Phone: [facility] [employer] 600 DO Work Phone: 10-20-2022 11:00-0500 Body height 162.56 cm Javier M Usman Work Phone: [facility] [employer] 600 DO Work Phone: 10-20-2022 11:00-0500 Body mass index (BMI) [Ratio] 25.23 kg/m2 Javier M Usman Work Phone: [facility] [employer] 600 DO Work Phone: 10-20-2022 11:00-0500 Body surface area Derived from formula 1.72 m2 Javier M Usman Work Phone: [facility] [employer] [address] DO Work Phone: 10-20-2022 11:00-0500 Body weight 66.68 kg [facility]avier M [facility] Work Phone: 10-20-2022 11:00-0500 Heart rate 75 /min Javier M Us[facility] Work Phone: 10-20-2022 11:00-0500 Systolic blood pressure 140 mm[Hg] Javier M Us[facility] Work Phone: 09-15-2022 11:45-0500 Body height 160.02 cm Javier Usman Other [facility] Other 09-15-2022 11:45-0500 Body mass index (BMI) [Ratio] 27.45 kg/m2 Javier Usman Other [facility] Other 09-15-2022 11:45-0500 Body temperature 98.5 [degF] Javier Usman Other [employer] Other 09-15-2022 11:45-0500 Body weight 70.31 kg Javier Usman Other [employer] Other 09-15-2022 11:45-0500 Diastolic blood pressure 60 mm[Hg] Javier Usman Other [facility] [employer] Other 09-15-2022 11:45-0500 Respiratory rate 20 /min Javier Drapergles Other [facility] [employer] Other 09-15-2022 11:45-0500 SaO2% (BldA) [Mass fraction] 97 % Javiervincent Baileyes Other [facility] [employer] Other 09-15-2022 11:45-0500 Systolic blood pressure 126 mm[Hg] Javier Drapergles Other [facility] [employer] Other 05-11-2022 08:50-0400 Body temperature 97.7 [degF] Paul Teixeira [facility] 05-11-2022 08:50-0400 Diastolic blood pressure 75 mm[Hg] Paul Teixeira [facility] 05-11-2022 08:50-0400 Heart rate 71 /min Paul Teixeira [facility] 05-11-2022 08:50-0400 Respiratory rate 18 /min Paul Teixeira [facility] 05-11-2022 08:50-0400 SaO2% (BldA) [Mass fraction] 96 % Paul Teixeira [facility] 05-11-2022 08:50-0400 Systolic blood pressure 154 mm[Hg] Paul Teixeira [facility] 04-08-2022 10:58-0400 Body height 165.1 cm Javier Laine Mary Work Phone: [facility] 600 DO Work Phone: 04-08-2022 10:58-0400 Body mass index (BMI) [Ratio] 26.46 kg/m2 Javier Laine [facility] Work Phone: 04-08-2022 10:58-0400 Body surface area Derived from formula 1.79 m2 Javier M Usman Work Phone: [facility] [employer] 600 DO Work Phone: 04-08-2022 10:58-0400 Body weight 72.12 kg Javier M Us[facility] Work Phone: 04-08-2022 10:58-0400 Diastolic blood pressure 50 mm[Hg] Javier M Usman Work Phone: [facility] [employer] 600 DO Work Phone: 04-08-2022 10:58-0400 Heart rate 64 /min Javier M Us[facility] DO Work Phone: 04-08-2022 10:58-0400 Systolic blood pressure 104 mm[Hg] Javier M Us[facility] DO Work Phone: 03-16-2022 11:45-0400 Body height 160.02 cm Javier Usman Other [employer] [facility] [employer] Other 03-16-2022 11:45-0400 Body mass index (BMI) [Ratio] 29.23 kg/m2 Javier Usman Other [employer] Other 03-16-2022 11:45-0400 Body temperature 98.3 [degF] Javier Usman Other [employer] Other 03-16-2022 11:45-0400 Body weight 74.84 kg Javier Usman Other [employer] Other 03-16-2022 11:45-0400 Diastolic blood pressure 72 mm[Hg] Javier Usman Other [employer] Other 03-16-2022 11:45-0400 Respiratory rate 20 /min Javier Usman Other [employer] Other 03-16-2022 11:45-0400 SaO2% (BldA) [Mass fraction] 94 % Javier Usman Other [facility] Other 03-16-2022 11:45-0400 Systolic blood pressure 128 mm[Hg] Javier Usman Other [employer] Other 02-05-2022 12:15-0400 Body height 160.02 cm Javier Usman Other [employer] Other 02-05-2022 12:15-0400 Body mass index (BMI) [Ratio] 29.23 kg/m2 Javier Usman Other [employer] Other 02-05-2022 12:15-0400 Body temperature 98.7 [degF] Javier Usman Other [employer] Other 02-05-2022 12:15-0400 Body weight 74.84 kg Javier Usman Other [employer] Other 02-05-2022 12:15-0400 Diastolic blood pressure 62 mm[Hg] Javier Usman Other [employer] Other 02-05-2022 12:15-0400 Respiratory rate 20 /min Javier Usman Other [employer] Other 02-05-2022 12:15-0400 SaO2% (BldA) [Mass fraction] 95 % Javier Usman Other [employer] Other 02-05-2022 12:15-0400 Systolic blood pressure 122 mm[Hg] Javier Usman Other [employer] Other 01-31-2022 22:45-0400 Body temperature 98.6 [degF] Fletcher Livia [facility] 01-31-2022 22:45-0400 Diastolic blood pressure 68 mm[Hg] Fletcher Livia [facility] 01-31-2022 22:45-0400 Heart rate 80 /min Fletcher Livia [facility] 01-31-2022 22:45-0400 Mean blood pressure 87 mm[Hg] Fletcher Livia [facility] 01-31-2022 22:45-0400 Respiratory rate 17 /min Fletcher Livia [facility] 01-31-2022 22:45-0400 SaO2% (BldA) [Mass fraction] 99 % Fletcher Livia [facility] 01-31-2022 22:45-0400 Systolic blood pressure 125 mm[Hg] Fletcher Livia [facility] 01-31-2022 22:30-0400 Body temperature 98.24 [degF] Fletcher Livia [facility] 01-31-2022 22:30-0400 Diastolic blood pressure 80 mm[Hg] Fletcher Livia [facility] 01-31-2022 22:30-0400 Heart rate 76 /min Fletcher Livia [facility] 01-31-2022 22:30-0400 Mean blood pressure 93 mm[Hg] Fletcher Livia [facility] 01-31-2022 22:30-0400 Respiratory rate 18 /min Fletcher Livia [facility] 01-31-2022 22:30-0400 SaO2% (BldA) [Mass fraction] 97 % Fletcher Livia [facility] 01-31-2022 22:30-0400 Systolic blood pressure 120 mm[Hg] Fletcher Livia [facility] 01-31-2022 22:15-0400 Body temperature 98.6 [degF] Fletcher Livia [facility] 01-31-2022 22:15-0400 Diastolic blood pressure 86 mm[Hg] Fletcher Livia [facility] 01-31-2022 22:15-0400 Heart rate 79 /min Fletcher Livia [facility] 01-31-2022 22:15-0400 Mean blood pressure 102 mm[Hg] Fletcher Livia [facility] 01-31-2022 22:15-0400 Respiratory rate 17 /min Fletcher Livia [facility] 01-31-2022 22:15-0400 SaO2% (BldA) [Mass fraction] 99 % Fletcher Livia [facility] 01-31-2022 22:15-0400 Systolic blood pressure 135 mm[Hg] Fletcher Livia [facility] 11-18-2021 09:02-0500 Diastolic blood pressure 82 mm[Hg] Javier M Usman Work Phone: [facility] 600 DO Work Phone: 11-18-2021 09:02-0500 Systolic blood pressure 133 mm[Hg] Javier M Usman Work Phone: [facility] 600 DO Work Phone: 11-18-2021 08:34-0500 Body height 154.94 cm Javier M Usman Work Phone: [facility] 600 DO Work Phone: 11-18-2021 08:34-0500 Body mass index (BMI) [Ratio] 32.27 kg/m2 Javier M Usman Work Phone: [facility] 600 DO Work Phone: 11-18-2021 08:34-0500 Body surface area Derived from formula 1.77 m2 Javier M Usman Work Phone: [facility] 600 DO Work Phone: 11-18-2021 08:34-0500 Body weight 77.47 kg Javier M Usman Work Phone: [facility] 600 DO Work Phone: 11-18-2021 08:34-0500 Diastolic blood pressure 78 mm[Hg] Javier M Usman Work Phone: [facility] DO Work Phone: 11-18-2021 08:34-0500 Heart rate 79 /min Javier M Usman Work Phone: [facility] DO Work Phone: 11-18-2021 08:34-0500 Systolic blood pressure 146 mm[Hg] Javier M Usman Work Phone: [facility] 600 DO Work Phone: 10-14-2021 13:46-0500 Body height 162.56 cm Javier M Usman Work Phone: [facility] 250 DO Work Phone: 10-14-2021 13:46-0500 Body mass index (BMI) [Ratio] 28.87 kg/m2 Javier M Usman Work Phone: [facility] 250 DO Work Phone: 10-14-2021 13:46-0500 Body surface area Derived from formula 1.82 m2 Javier M Usman Work Phone: [facility] 250 DO Work Phone: 10-14-2021 13:46-0500 Body weight 76.3 kg Javier M Usman Work Phone: [facility] 250 DO Work Phone: 10-14-2021 13:46-0500 Diastolic blood pressure 82 mm[Hg] Javier M Usman Work Phone: [facility] 250 DO Work Phone: 10-14-2021 13:46-0500 Heart rate 87 /min Javier M Usman Work Phone: [facility] 250 DO Work Phone: 10-14-2021 13:46-0500 Systolic blood pressure 136 mm[Hg] Javier M Usman Work Phone: [facility] 250 DO Work Phone: 09-24-2021 11:44-0500 Body height 162.56 cm Javier M Usman Work Phone: [facility] 600 DO Work Phone: 09-24-2021 11:44-0500 Body mass index (BMI) [Ratio] 28.86 kg/m2 Javier M Usman Work Phone: [facility] 600 DO Work Phone: 09-24-2021 11:44-0500 Body surface area Derived from formula 1.82 m2 Javier M Usman Work Phone: [facility] 600 DO Work Phone: 09-24-2021 11:44-0500 Body weight 76.26 kg Javier M Usman Work Phone: [facility] 600 DO Work Phone: 09-24-2021 11:44-0500 Diastolic blood pressure 90 mm[Hg] Javier M Usman Work Phone: [facility] 600 DO Work Phone: 09-24-2021 11:44-0500 Heart rate 95 /min Javier M Usman Work Phone: [facility] DO Work Phone: 09-24-2021 11:44-0500 Systolic blood pressure 143 mm[Hg] Javier M Usman Work Phone: [facility] Work Phone: 09-15-2021 12:15-0500 Body height 160.02 cm Javier Usman Other [employer] Other 09-15-2021 12:15-0500 Body mass index (BMI) [Ratio] 30.47 kg/m2 Javier Usman Other [employer] Other 09-15-2021 12:15-0500 Body temperature 99.2 [degF] Javier Usman Other [employer] Other 09-15-2021 12:15-0500 Body weight 78.02 kg Javier Usman Other [employer] Other 09-15-2021 12:15-0500 Diastolic blood pressure 60 mm[Hg] Javier Usman Other [employer] Other 09-15-2021 12:15-0500 Respiratory rate 20 /min Javier Usman Other [facility] Other 09-15-2021 12:15-0500 SaO2% (BldA) [Mass fraction] 97 % Javier Usman Other [facility] Other 09-15-2021 12:15-0500 Systolic blood pressure 104 mm[Hg] Javier Usman Other [employer] Other 08-25-2021 13:00-0500 Body height 160.02 cm Aaron Norwood Other [employer] Other 08-25-2021 13:00-0500 Body mass index (BMI) [Ratio] 24.8 kg/m2 Aaron Norwood Other [employer] Other 08-25-2021 13:00-0500 Body temperature 98.4 [degF] Aaron Norwood Other [facility] Other 08-25-2021 13:00-0500 Body weight 63.5 kg Aaron Norwood Other [facility] Other 08-25-2021 13:00-0500 Diastolic blood pressure 80 mm[Hg] Aaron Españarer Other [facility] Other 08-25-2021 13:00-0500 SaO2% (BldA) [Mass fraction] 97 % Aaron Norwood Other [facility] Other 08-25-2021 13:00-0500 Systolic blood pressure 142 mm[Hg] Aaron Españarer Other [employer] Other 08-19-2021 12:30-0500 Body height 160.02 cm Eva Tantaylor Other [employer] Other 08-19-2021 12:30-0500 Body mass index (BMI) [Ratio] 24.8 kg/m2 Eva Tantaylor Other [employer] Other 08-19-2021 12:30-0500 Body temperature 97.6 [degF] Eva Tantaylor Other [employer] Other 08-19-2021 12:30-0500 Body weight 63.5 kg Eva Tantaylor Other [employer] Other 08-19-2021 12:30-0500 Diastolic blood pressure 70 mm[Hg] Eva Denisse Other [employer] Other 08-19-2021 12:30-0500 SaO2% (BldA) [Mass fraction] 97 % Eva Denisse Other [facility] Other 08-19-2021 12:30-0500 Systolic blood pressure 126 mm[Hg] Eva Salcedo Other [employer] Other Encounters Encounter Date Encounter Type Care Provider Facility Start: 09-20-2023 End: 09-20-2023 ambulatory Javier Usman Other [facility] Other Start: 09-20-2023 Office outpatient vi sit 25 minutes Javier Usman [facility] Start: 08-05-2023 End: 08-05-2023 ambulatory Javier Usman Other [employer] Other Start: 08-05-2023 Telephone encounter Javier Usman [facility] Start: 08-02-2023 End: 08-02-2023 ambulatory Javier Usman Other [employer] Other Start: 08-02-2023 Telephone encounter Javier Usman [facility] Start: 06-28-2023 End: 06-28-2023 ambulatory Javier Usman Other [employer] Other Start: 06-28-2023 Telephone encounter Javier Usman [facility] Start: 06-21-2023 End: 06-21-2023 ambulatory Javier Usman Other [employer] Other Start: 06-21-2023 Office outpatient vi sit 15 minutes Javier Usman [facility] Start: 06-17-2023 Chart Update Javier M Usman Work Phone: [facility] [address] [place] Work Phone: Start: 06-17-2023 Telephone encounter Javier Usman [facility] Start: 06-17-[address] Javier Mary Facility: Start: 06-17-2023 End: 06-18-2023 ambulatory Jones Rockwelli Facility:[facility] Start: 06-17-2023 End: 06-17-2023 Patient encounter procedure Jones Cuba [facility] Start: 06-05-2023 End: 06-06-2023 ambulatory Jones Rockwelli Facility:[facility] Start: 06-05-2023 End: 06-05-2023 Patient encounter procedure Jones Cuba [facility] Start: 06-02-2023 Office outpatient vi sit 25 minutes Javier M Usman Work Phone: [facility] 600 DO Work Phone: Start: 06-02-[address] Javier Mary Facility: Start: 05-10-2023 End: 05-10-2023 ambulatory Javier Usman Other [employer] Other Start: 05-10-2023 Office outpatient vi sit 15 minutes Javier Usman [facility] Start: 05-10-2023 Telephone encounter Javier Usman [facility] Start: 04-24-2023 End: 04-25-2023 ambulatory JAVIER M USMAN Facility:[facility] Start: 04-24-2023 End: 04-24-2023 Patient encounter procedure JAVIER M USMAN [facility] Start: 04-21-2023 End: 04-21-2023 ambulatory Javier Usman Other [email or web address] Other Start: 04-21-2023 Office outpatient vi sit 25 minutes Javier Usman [facility] [place] Start: 04-21-2023 Telephone encounter Javier Usman [facility] [place] Start: 04-06-2023 End: 04-06-2023 ambulatory Javier Usman Other [employer] Other Start: 04-06-2023 Telephone encounter Javier Usman [facility] Start: 04-02-2023 End: 04-03-2023 ambulatory Jes Wolff Facility:CD:[id number] Start: 04-02-2023 End: 04-02-2023 Off-Site [facility] Start: 03-23-2023 End: 03-24-2023 ambulatory Aaron HOLLIDAY Facility:CD:[id number] Start: 03-22-2023 End: 04-03-2023 ambulatory Aaron [place] Facility:[facility] Start: 03-22-2023 End: 04-03-2023 Evaluation and management of inpatient Aaron HOLLIDAY [facility] Start: 03-20-2023 End: 03-22-2023 ambulatory Jag CARVER Facility:[facility] Start: 03-01-2023 End: 03-02-2023 ambulatory Paul Gomez Facility:[facility] Start: 02-17-2023 End: 02-17-2023 ambulatory Paul Gomez Facility:[facility] Start: 02-17-2023 End: 02-17-2023 Admission to same day surgery center Paul Gomez [facility] Start: 01-20-2023 End: 01-20-2023 ambulatory Javier Usman Other [employer] Other Start: 01-20-2023 Telephone encounter Javier Usman [facility] Start: 01-11-2023 End: 01-12-2023 ambulatory Paul Gomez Facility:[facility] Start: 01-11-2023 End: 01-11-2023 Patient encounter procedure Paul Gomez [facility] Start: 01-05-2023 End: 01-05-2023 ambulatory Javier Usman Other [employer] Other Start: 01-05-2023 Telephone encounter Javier Usman [facility] Start: 01-04-2023 End: 01-05-2023 ambulatory Paul Gomez Facility:[facility] Start: 01-04-2023 End: 01-05-2023 ambulatory Paul Gomez Facility:[facility] Start: 01-04-2023 End: 01-04-2023 Lab Drop off Paul Gomez [facility] Start: 01-04-2023 End: 01-09-2023 Pre-admission assessment Paul Gomez [facility] Start: 01-04-2023 End: 01-04-2023 Patient encounter procedure Paul Gomez [facility] Start: 12-28-2022 End: 12-28-2022 Emergency department patient visit Paul Teixeira Facility:[facility] Start: 12-28-2022 End: 12-28-2022 Emergency department patient visit Paul Teixeira [facility] Start: 12-28-2022 End: 12-28-2022 ambulatory Javier Usman Other [employer] Other Start: 12-28-2022 Telephone encounter Javier Usman [facility] Start: 12-05-2022 End: 12-05-2022 Emergency department patient visit Bruno Dowell Facility:[facility] Start: 12-04-2022 End: 12-04-2022 ambulatory Javier Usman Other [employer] Other Start: 12-04-2022 Telephone encounter Javier Usman [facility] Start: 11-30-2022 End: 11-30-2022 ambulatory Javier Usman Other [employer] Other Start: 11-30-2022 Office outpatient vi sit 25 minutes Javier Usman [facility] Start: 11-30-2022 Telephone encounter Javier Usman [facility] Start: 11-17-2022 End: 11-17-2022 ambulatory Javier Usman Other [employer] Other Start: 11-17-2022 Telephone encounter Javier Usman [facility] Start: 11-12-2022 End: 11-12-2022 ambulatory Javier Usman Other [employer] Other Start: 11-12-2022 Telephone encounter Javier Usman [facility] Start: 11-12-2022 End: 11-12-2022 Emergency department patient visit Sanjeev Johnston Facility:[facility] Start: 11-12-2022 End: 11-12-2022 Emergency department patient visit Sanjeev Johnston [facility] Start: 10-29-2022 End: 10-29-2022 ambulatory Javier Usman Other [employer] Other Start: 10-29-2022 Telephone encounter Javier Usman [facility] Start: 10-21-2022 AUDIT Javier M Usman Work Phone: [facility] 250 DO Work Phone: Start: 10-20-2022 Office outpatient vi sit 25 minutes Javier M Usman Work Phone: [facility] 600 DO Work Phone: Start: 10-20-[address] Jones [place] Facility:[facility] Start: 10-05-2022 Chart Update Javier M Usman Work Phone: [facility] 600 DO Work Phone: Start: 09-28-2022 End: 09-29-2022 ambulatory Jones [place] Facility:[facility] Start: 09-28-2022 End: 09-28-2022 Patient encounter procedure Jones Cuba [facility] Start: 09-15-2022 Rx Renewal Javier M Usman Work Phone: [facility] 250 DO Work Phone: Start: 09-15-2022 End: 09-15-2022 ambulatory Javier Usman Other [employer] Other Start: 09-15-2022 Office outpatient vi sit 25 minutes Javier Usman [facility] Start: 08-06-2022 Patient encounter procedure Javier M Usman Work Phone: [facility] DO Work Phone: Start: 07-28-2022 End: 07-28-2022 ambulatory Javier Usman Other [email or web address] Other Start: 07-28-2022 Telephone encounter Javier Usman [facility] Start: 05-26-2022 End: 05-26-2022 ambulatory Javier Usman Other [employer] Other Start: 05-26-2022 Telephone encounter Javier Usman [facility] [place] Start: 05-11-2022 End: 05-11-2022 Emergency department patient visit Paul Teixeira [facility] Start: 04-21-2022 End: 04-21-2022 ambulatory Javier Usman Other [email or web address] Other Start: 04-21-2022 Telephone encounter Javier Usman [facility] Start: 04-08-2022 Office outpatient vi sit 25 minutes Javier M Usman Work Phone: [facility] 600 DO Work Phone: Start: 03-16-2022 End: 03-16-2022 ambulatory Javier Usman Other [employer] Other Start: 03-16-2022 Patient encounter procedure Javier Usman [facility] Start: 03-16-2022 Telephone encounter Javier Usman [facility] Start: 02-05-2022 End: 02-05-2022 ambulatory Javier Usman Other [email or web address] Other Start: 02-05-2022 Office outpatient vi sit 15 minutes Javier Usman [facility] Start: 01-31-2022 End: 01-31-2022 Emergency department patient visit Fletcher Bhakta [facility] Start: 01-08-2022 End: 01-08-2022 ambulatory Javier Usman Other [employer] Other Start: 01-08-2022 Telephone encounter Javier Usman [facility] Start: 01-01-2022 End: 01-01-2022 ambulatory Javier Usman Other [employer] Other Start: 01-01-2022 Telephone encounter Javier Usman [facility] Start: 12-26-2021 End: 12-26-2021 ambulatory Javier Usman Other [employer] Other Start: 12-26-2021 Telephone encounter Javier Usman [facility] Start: 12-01-2021 End: 12-01-2021 ambulatory Javier Usman Other [employer] Other Start: 12-01-2021 Telephone encounter Javier Usman [facility] Start: 12-01-2021 Rx Renewal Javier M Usman Work Phone: [facility] 250 DO Work Phone: Start: 11-18-2021 Office outpatient vi sit 25 minutes Javier M Usman Work Phone: [facility] 600 DO Work Phone: Start: 10-29-2021 Chart Update Javier M Usman Work Phone: [facility] 250 DO Work Phone: Start: 10-29-2021 End: 10-29-2021 ambulatory Javier M. Usman Facility:[facility] Start: 10-15-2021 Telephone encounter Javier M Rug gles Work Phone: [facility] 250 DO Work Phone: Start: 09-24-2021 Office outpatient vi sit 25 minutes Javier M Usman Work Phone: [facility] 600 DO Work Phone: Start: 09-19-2021 Telephone encounter Javier Draper gles Work Phone: [facility] [place] [address] [place] Work Phone: Start: 09-18-2021 End: 09-18-2021 ambulatory Javier Usman Other [employer] Other Start: 09-18-2021 Telephone encounter Javier Usman [facility] Start: 09-16-2021 End: 09-16-2021 ambulatory Javier Usman Other [employer] Other Start: 09-16-2021 Telephone encounter Javier Usman [facility] Start: 09-15-2021 End: 09-15-2021 ambulatory Javier Usman Other [employer] Other Start: 09-15-2021 Office outpatient vi sit 25 minutes Javier Usman [facility] Start: 09-15-2021 Telephone encounter Javier Usman [facility] Start: 08-25-2021 End: 08-25-2021 ambulatory Aaron Norwood Other [facility] Other Start: 08-25-2021 Office outpatient vi sit 15 minutes Aaron Norwood [facility] Start: 08-21-2021 End: 08-21-2021 ambulatory Eva Salcedo Other [facility] Other Start: 08-21-2021 Telephone encounter Eva Mason [facility] Start: 08-19-2021 End: 08-19-2021 ambulatory Eva Salcedo Other [facility] Other Start: 11-09-2021 Office outpatient vi sit 15 minutes Eva Salcedo [facility] Vascular Surgery Start: 12-13-2018 End: 12-19-2018 Patient encounter procedure JAVIER MARY Facility:H1 Start: 12-08-2018 Encounter for preprocedural cardiovascular examination [facility] Start: 12-08-2018 Encounter for preprocedural laboratory examination [facility] Start: 12-06-2018 End: 12-07-2018 [facility] Start: 11-18-2018 End: 11-19-2018 [facility] Encounter for preprocedural laboratory examination [facility] Patient encounter status Javier Mary Work Phone: [facility] 250 DO Work Phone: Procedures Date [...] Jones Cuba, Status: Pen, Time: 10:10 AM [facility] 600 DO Work Phone: Start: 04-08-2023 FUV, Provider: Jones Cuba, Status: Pen, Time: 11:10 AM FUV, Provider: Jones Cuba, Status: Pen, Time: 11:10 AM [facility] 600 DO Work Phone: Start: 04-01-2023 FUV, Provider: Jones Cuba, Status: Pen, Time: 11:10 AM FUV, Provider: Jones Cuba, Status: Pen, Time: 11:10 AM [facility] 250 DO Work Phone: Start: 10-20-2022 FUV, Provider: Jones Cuba, Status: Pen, Time: 11:00 AM FUV, Provider: Jones Cuba, Status: Pen, Time: 11:00 AM [facility] 600 DO Work Phone: Start: 04-08-2022 FUV, Provider: Jones Cuba, Status: Pen, Time: 10:30 AM FUV, Provider: Jones Cuba, Status: Pen, Time: 10:30 AM [facility] 600 DO Work Phone: Start: 11-18-2021 FUV, Provider: Jones Cuba, Status: Pen, Time: 8:50 AM FUV, Provider: Jones Cuba, Status: Pen, Time: 8:50 AM [facility] 250A [place] Work Phone: Start: 10-29-2021 SURGNONUH, Provider: Jones Cuba, Status: Pen, Time: 10:00 AM [facility], Provider: Jones Cuba, Status: Pen, Time: 10:00 AM [facility] 250 DO Work Phone: Start: 10-14-2021 EKG, Provider: SHIRA COREY MITOCHONDRIAL DISORDERS COUNSELOR 1,[id number], Status: Pen, Time: 1:30 PM EKG, Provider: SHIRA COREY MITOCHONDRIAL DISORDERS COUNSELOR 1,[id number], Status: Pen, Time: 1:30 PM [facility] 600 DO Work Phone: Start: 09-24-2021 FUV, Provider: Jones Cuba, Status: Pen, Time: 11:00 AM FUV, Provider: Jones Cuba, Status: Pen, Time: 11:00 AM [facility] 250A [place] Work Phone: Immunizations Immunization Date Immunization Notes Care Provider Magalis navarro 08-19-2023 influenza, injectabl e, quadrivalent, contains preservative Javier Usman Other [facility] Other 08-01-2022 influenza virus vaccine, unspecified formulation Paul Gomez [facility] 01-31-2022 tetanus toxoid, redu neal diphtheria toxoid, and acellular pertussis vaccine, adsorbed; Translations: [Boostrix (Tdap)] Fletcher Bhakta [facility] 07-24-2021 Do not use COVID-19 Pfizer 2 dose Javier Usman Other [facility] 07-24-2021 Fluzone High-Dose Quadrivalent 0.7 ML Intramuscular Suspension Prefilled Syringe Javier M Usman Work Phone: [facility] 600 DO Work Phone: 07-24-2021 influenza virus vaccine, unspecified formulation Paul Gomez [facility] 07-24-2021 influenza, injectabl e, quadrivalent, contains preservative Javier Usman Other [facility] [employer] Other 12-06-2020 Do not use COVID-19 Pfizer 2 dose Javier Usman Other [facility] Comment on above: Result Comment: 2022: [id number] 11-14-2020 Pfizer-BioNTech COVID-19 Vacc 30 MCG/0.3ML Intramuscular Suspension Javier M Usman Work Phone: [facility] 600 DO Work Phone: 11-13-2020 Do not use COVID-19 Pfizer 2 dose Javier Usman Other [facility] Comment on above: Result Comment: 2022: [id number] 08-11-2020 influenza virus vaccine, unspecified formulation Paul Gomez [facility] 08-11-2020 influenza, high dose seasonal, preservative-free Javier Jang Usman Work Phone: [facility] 600 DO Work Phone: 08-07-2020 influenza virus vaccine, unspecified formulation Paul Gomez [facility] 08-07-2020 influenza, injectabl e, quadrivalent, contains preservative Eva Ruttino Other [facility] [employer] Other 08-14-2019 pneumococcal polysaccharide vaccine, 23 valent Eva Ruttino Other [facility] 07-14-2019 influenza virus vaccine, unspecified formulation Paul Gomez [facility] 07-14-2019 influenza, injectabl e, quadrivalent, contains preservative Eva Ruttino Other [facility] [employer] Other 06-11-2019 influenza virus vaccine, unspecified formulation Javier Drapergles Work Phone: [facility] 06-22-2018 influenza virus vaccine, unspecified formulation Paul Gomez [facility] 06-22-2018 influenza, seasonal, injectable Eva Ruttino Other [employer] [facility] [employer] Other 06-11-2018 influenza virus vaccine, unspecified formulation Javier Drapergles Work Phone: [facility] 600 DO Work Phone: 08-11-2017 pneumococcal conjuga te vaccine, 13 valent Javier M Usman Work Phone: [facility] 600 DO Work Phone: 07-11-2017 influenza, high dose seasonal, preservative-free Javier M Usman Work Phone: [facility] 600 DO Work Phone: 07-09-2017 influenza, seasonal, injectable Eva Salcedo Other [facility] [employer] Other 07-09-2017 influenza virus vaccine, unspecified formulation Paul Mourany [facility] 08-15-2016 pneumococcal conjuga te vaccine, 13 valent Eva Salcedo Other [facility] 07-11-2016 influenza virus vaccine, unspecified formulation Javier M Usman Work Phone: [place] [address] DO Work Phone: 11-11-2015 influenza virus vaccine, unspecified formulation Paul Mourany [facility] 11-11-2015 influenza, injectabl e, quadrivalent, preservative free Javier M Usman Work Phone: [facility] 600 DO Work Phone: 11-11-2015 influenza, injectabl e, quadrivalent, contains preservative Eva Salcedo Other [facility] [employer] Other 09-04-2015 influenza virus vaccine, unspecified formulation Paul Mourany [facility] 09-04-2015 influenza, injectabl e, quadrivalent, preservative free Javier M Usman Work Phone: [place] [address] DO Work Phone: 09-04-2015 influenza, injectabl e, quadrivalent, contains preservative Eva Salcedo Other [facility] [employer] Other 07-11-2015 influenza virus vaccine, unspecified formulation Javier Mary Work Phone: -[facility] 600 DO Work Phone: Payers Date Payer Category Payer Private Health Insurance [id number] 2021 Medicare [id number] 2. [id number] 2021 Self-pay 1957 Medicare [id number] 1940 Unknown [id number] 2.16.84 0.1.110775.3.579.2.593 1942 Unknown [id number] 2.16.84 0.1.077185.3.579.2.593 1942 Unknown [id number] 2.16.84 0.1.453274.3.579.2.593 1942 Unknown [id number] 2.16.8 40.1.449204.3.579.2.727 1942 Unknown [id number] 2.16.8 40.1.085869.3.579.2.727 1942 Unknown [id number] 2.16.8 40.1.175801.3.579.2.727 1942 Unknown [id number] 2.16.8 40.1.044846.3.579.2.727 1942 Unknown [id number] 2.16.8 40.1.193095.3.579.2.727 1942 Unknown [id number] 2.16.8 40.1.999133.3.579.2.727 1942 Unknown [id number] 2.16.8 40.1.005066.3.579.2.727 1942 Unknown [id number] 2.16.8 40.1.629409.3.579.2.727 1942 Unknown [id number] 2.16.8 40.1.742831.3.579.2.727 1942 Unknown [id number] 2.16.8 40.1.529673.3.579.2.727 1942 Unknown [id number] 2.16.8 40.1.171542.3.579.2.727 1942 Unknown [id number] 2.16.8 40.1.801128.3.579.2.727 1942 Unknown [id number] 2.16.8 40.1.033079.3.579.2.727 1942 Unknown [id number] 2.16.8 40.1.746327.3.579.2.727 1942 Unknown [id number] 2.16.8 40.1.819912.3.579.2.727 1942 Unknown [id number] 2.16.8 40.1.914701.3.579.2.727 1942 Unknown [id number] 2.16. 840.1.719303.3.579.2.356 1942 Unknown [id number] 2.16. 840.1.198578.3.579.2.356 1942 Unknown [id number] 2.16. 840.1.332531.3.579.2.356 Medicare [id number] 2.1 6.840.1.079243.19 Unknown Unknown [id number] 2.16.8 40.1.061233.3.579.2.531 Social History Date Type Detail Facility Former smoker Former smoker [address] Work Phone: Comment on above: Quit over 20 years a go.; 1-2 cups coffee brendan y; Start: 04-04-2021 End: 01-04-2023 Tobacco smoking status Ex-smoker (finding) [facility] Sex Assigned At Female [facility] [employer] Other Tobacco [facility] Comment on above: denies Tobacco smoking status No Smoking Status Entered [facility] NEGATED: Highlighted row - - [facility] Work Phone: Functional Status Date Assessment Result Facility 02-17-2023 Functional Status N/A [facility] 01-04-2023 Functional Status N/A [facility] [place] 12-28-2022 Functional Status N/A [facility] 11-12-2022 Functional Status N/A [facility] 05-11-2022 Functional Status N/A [facility] NEGATED: Highlighted row Functional performance Functional status health issues are not documented Disease [facility] Work Phone: Mental Status Date Assessment Result Facility NEGATED: Highlighted row Cognitive function [Interpretation] Cognitive status health issues are not documented Disease [facility] Work Phone: Clinical Notes 08-25-2021 to [...] continue to follow-up with the vascular/vein specialist. [employer] [facility] [employer] Other 09-18-2023 Evaluation note* Encounter Date Diagnosis Assessment Notes Treatment Notes Treatment Clinical Notes Jun, Essential (primary) hypertension (ICD-10 - I10) [facility] [employer] Other 09-11-2023 Evaluation note* Encounter Date Diagnosis Assessment Notes Treatment Notes Treatment Clinical Notes Jun, Hematoma of left lower leg (ICD-10 - S80.12XA) Discussed with patient and son-in-law that I feel we will just simply continue to monitor as hematomas will be reabsorbed slowly by the body. I think we merely keep this well covered, to prevent any further bumping. Call with results. [facility] Other 09-07-2023 NoteEchocardiology Procedure Exam Date/Time Accession # Ordering Echo Transthoracic 06/17/2023 10:09 EDT [id number] Bereket GUILLEN, Jones Complete CPT code 83603 Reason for Exam (Echo Transthoracic Complete) I35.0 Report [facility] [address] [place] [address] Adult Echocardiogram Report Name: [facility] Study Date: 06/17/2023 09:16 AM BP: 148/68 mmHg Patient Location: [facility] HR: 55 : 1940 Gender: Female Height: 64 in Age: 82 yrs Ethnicity: [facility] Weight: 143 lb Reason For Study: [...] Signed by: Ricardo Salamanca MD Transcribed by: NC Technologist: [facility]07-31-2023 Evaluation note* Encounter Date Diagnosis Assessment Notes Treatment Notes Treatment Clinical Notes Apr, Skin tear of right hand without complication, initial encounter (ICD-10 - S61.411A) Patient and son-in-law are given some Vaseline gauze to use. Keep this area clean and dry. Monitor for healing. Call with any change. [facility] Other 07-15-2023 Evaluation + Plan note Diagnostic Tests Pending * Folate Level 04/24/23 * T3 Free 04/24/23 * Vitamin B12 Level 04/24/23 [facility]07-12-2023 Evaluation note* Encounter Date Diagnosis Assessment [...] dose accordingly. They will call with results. [facility] Other 06-13-2023 NoteHOSPITAL REGULATIONS: All Positive and [...] unable to move. She was brought to [facility] where she is found to have superior [...] this fracture pattern. Kaitlyn Menard Dictated: 03/21/2023 [id number] Transcribed: 03/22/2023 cc:Javier Mary D.O.[facility]:Result Comment: Electronically Signed By: Marquise Mesa DO\.br\Date and Time Signed: 03/23/23 06:51 NoteDAILY PROGRESS NOTE: 03/22/2023 HISTORY: Chani is seen here today for repeat evaluation of her left hemipelvic fractures. She is doing okay, no new complaints, no new symptomatology. Physical therapy did work with her yesterday and ambulated six feet with a front-wheeled walker. She has three steps at home. Recommendation for custodial is made. Her examination here today reveals [...] from the periphery. 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 PCP, DME and insurance discussed. Patient is alert and involved in plan of care. Contact information provided and whiteboard updated. Pt's dtr will transport. Pt has been accepted to [facility], pending precert. No further needs. Ant dc TBD. CRM to follow. Precert came through. Pt will dc to room 603, now TCU.[facility] on above:Result Comment: Electronically Signed By: Luanne Maddox\.br\Date and Time Signed: 03/22/23 12:43 [id number] NotePT evaluation completed with an AM-PAC six [...] continue to follow daily and make appropriate recommendations.[facility]06-11-2023 NoteChief Complaint Watering lawn and slipped on wet grass and fell. Denies feeling illl prior. (L) hip pain. Hit back on head on ground, no LOC. On Eliquis. Able to bear weight, but painful. History of Present Illness [id number] patient is a very pleasant active 82-year-old [...] the bedside suggest that Dr. Cuba the engraver wood with whom she had an appointment within [...] and superior pubic ramus fracture. The emergency transportation department head orthopedic service was consulted and the case [...] kyphosis. scoliosis. Extremities: no (more content not included)...[facility] on above:Result Comment: Electronically Signed By: Jag CARVER DO.meme\Date and Time Signed: 03/21/23 03:47 [id number] Note [id number]:127[facility] 02-17-2023 Hospital Discharge instructions Patient Education 02/17/2023 [...] and water are not available, use hand vp account director. ?Change your dressing as told by your [...] to take sponge baths. General instructions Take pmlz-jda-isrbmcx and prescription medicines only as told by [...] dressing. Your wound opens up. Summary Take izch-vzo-rftawtc and prescription medicines only as told by [...] provider. Document Revised: 04/28/2022 Document Reviewed: 04/28/2022 [employer] Patient Education 2022 Alter-G. Follow Up Care 01/13/2023 08:38:17 With:Paul Gomez Address: [facility] [address] [place] [phone] Business (1) When:02/27/2023 14:24:06 Comments:Call for followup appointment [facility]04-12-2023 Evaluation note* Encounter Date Diagnosis Assessment Notes Treatment Notes Treatment Clinical Notes Jan, Dysfunction of both eustachian tubes (ICD-10 - H69.83) [facility] Other 04-11-2023 Note [id number]:127[facility] 01-13-2023 NoteMicrobiology PROCEDURE: Wound Culture [R1] SOURCE: [...] Locations R1: This test was performed at: [facility], [address] [place] [address], [id number] , , [facility]Access [facility] DaytonComment on above:Performed By: #### [id number], [id number], [id number], [id number] #### [facility] [address] [place] [address] [id number] Hospital Discharge instructions Patient Education 01/11/2023 14:09:30 [...] food choices, such as grocery stores and [employer] markets. What are the signs or symptoms? [...] and how much exercise you get. Take arvf-fwl-aeyxhnq and prescription medicines only as told by [...] 11/04/2005 Document Revised: 06/01/2019 Document Reviewed: 06/01/2019 [employer] Patient Education 2019 [employer]. [facility] [place] 03-20-2023 Hospital Discharge instructions Patient Education 12/28/2022 [...] Follow these instructions at home: Medicines Take aiax-cwa-hqpxmef and prescription medicines only as told by [...] soap and water arenot available, use hand vp account director. Check your abscess every day for signs [...] 07/07/2006 Document Revised: 01/18/2020 Document Reviewed: 11/10/2018 [employer] Patient Education 2020 Alter-G. Follow Up Care 12/28/2022 16:23:36 With:Dae LANDAVERDE Address: [address], [facility] [address] [facility] [address] [place] [address]- Business (1) When:12/31/2022 16:44:46 Comments:Follow-up for evaluation and treatment of breast abscess With:JAVIER MARY Address: [address], [facility] [address] [place] [address]- Business (1) When:Within 3 Day(s) [facility]02-20-2023 Evaluation note* Encounter Date Diagnosis Assessment [...] that she can only really use the mraf-mfv-myijvqw Coricidin. Call with results. Nov, Constipation, unspecified constipation type (ICD-10 - K59.00) Lengthy discussion with patient and daughter today that certainly she could try the rjrm-las-rjfqwtp Colace or the gwnj-kuu-hffbuzw MiraLAX, as this is something that they also purchased. I feel she would be best served by trying to take a half a cap every day Nov, Nasal congestion (ICD-10 - R09.81) Sjde-ped-bidapbf Coricidin is fine. Patient to call if no improvement seen. [facility] Other 02-20-2023 Evaluation note* Encounter Date Diagnosis Assessment Notes Treatment Notes Treatment Clinical Notes Nov, Pure hypercholestero lemia (ICD-10 - E78.00) Nov, Essential (primary) hypertension (ICD-10 - I10) [facility] Other 02-02-2023 Hospital Discharge instructions Patient Education [...] Follow these instructions at home: Medicines Take cchh-tyt-zpcoyoi and prescription medicines only as told by [...] such as antibiotic medicines or antihistamines. Take wyyr-zwe-xsvisdj and prescription medicines only as told by [...] 07/07/2006 Document Revised: 02/16/2019 Document Reviewed: 02/16/2019 [employer] Patient Education 2020 Alter-G. Follow Up Care 11/12/2022 11:41:12 With:JAVIER MARY Address: [facility] [address] [address]- Business (1) When:11/15/2022 13:03:01 [facility]02-02-2023 Evaluation + Plan noteExtracted from: Title:ED Note Author:Clyde Alas PA-C te:11/12/22 Cellulitis (L03.90: Cellulit is, unspecified) Wrist pain (M25.539: Pain in unspecified wrist) Orders: cephalexin, 500 mg = 1 cap(s), Oral, TID, Take one capsule by mouth three times a day for ten days, # 30 cap(s), Refills(s) 0, Pharmacy: [facility], 165, cm, 11/12/22 11:52:00 EST, Height/Length Dosing, 69, kg, 11/12/22 11:52:00 EST, Weight Dosing Splint Application Wrist XR Wrist 3+ Views Right [facility]12-06-2022 Evaluation note* Encounter Date Diagnosis Assessment [...] and understanding. She will call with update. [facility] Other 10-18-2022 Evaluation note* Encounter Date Diagnosis Assessment Notes Treatment Notes Treatment Clinical Notes Jul, Essential (primary) hypertension (ICD-10 - I10) [facility] Other 08-01-2022 Evaluation + Plan noteExtracted from: [...] Right XR Knee Complete 4+ Views Right [facility]08-01-2022 Hospital Discharge instructions Patient Education 05/11/2022 [...] 07/07/2006 Document Revised: 11/23/2019 Document Reviewed: 10/20/2017 [employer] Patient Education 2020 Alter-G. 05/11/2022 10:39:55 Simms Cyst Simms Cyst A [...] your health care provider. General instructions Take kofh-wyz-tvueeyv and prescription medicines only as told by [...] 09/27/2006 Document Revised: 02/09/2020 Document Reviewed: 02/09/2020 [employer] Patient Education 2020 [employer] Follow Up Care 05/11/2022 08:45:22 With:Marquise Mesa Address: [address] [place] [address]- Business (1) When:05/14/2022 10:10:58 With:JAVIER MARY Address: [address] [address] Business (1) When:Within 3 Day(s) [facility]06-06-2022 Evaluation note* Encounter Date Diagnosis Assessment [...] if they are going to have the shipyard painter back shortly or if we should send her to the shipyard painter in [place]. We will contact patient/son-in-law with results. [facility] Other 04-28-2022 Evaluation note* Encounter Date Diagnosis Assessment Notes Treatment Notes Treatment Clinical Notes Jan, Laceration of right lower leg, initial encounter (ICD-10 - S81.811A) Pt to keep clean and dry - no bathing - shower only. [facility] Other 04-24-2022 Hospital Discharge instructions Patient Education [...] and water are not available, use hand vp account director. ?Change your dressing as told by your [...] antibiotic even if your condition improves. Take ocrc-bua-rtcyete and prescription medicines only as told by [...] 07/06/2009 Document Revised: 01/15/2020 Document Reviewed: 04/13/2017 [employer] Patient Education 2020 Alter-G. 01/31/2022 22:44:56 Nonsutured Laceration Care Nonsutured Laceration [...] Infection. Slow healing. Supplies needed: Soap. Hand vp account director. Sterile water or irrigation solution. Bandages (dressings). [...] and water are not available, use hand vp account director. 2.Remove any dressing as told by your [...] these instructions at home: Take or apply ikak-tjw-tzalatj and prescription medicines only as told by [...] 08/25/2007 Document Revised: 01/19/2020 Document Reviewed: 10/17/2018 [employer] Patient Education 2020 Alter-G. Follow Up Care 01/31/2022 19:55:48 With:JAVIER USMAN [facility] [facility] [address] [place] [address]- Business (1) When:02/03/2022 [facility]03-24-2022 Evaluation note* Encounter Date Diagnosis Assessment Notes Treatment Notes Treatment Clinical Notes Dec, Essential (primary) hypertension (ICD-10 - I10) [facility] Other 12-06-2021 Evaluation note* Encounter Date Diagnosis [...] Ortho if she would like definitive review/removal? [facility] Other 11-15-2021 Evaluation note* Encounter Date Diagnosis [...] or call when she decides on treatment. [facility] Other Evaluation + Plan note No data available for this section [facility] Future Appointments Appointment Date:01/08/2023 09:15:00 AM Scheduled Provider: Location:.[facility] Appointment Type:MA Diagnostic (FT) Appointment Date:01/11/2023 01:40:00 PM Scheduled Provider:Paul Gomez MD Location:[facility] Appointment Type: Established 15 Future Scheduled Tests Radiology* MA Mamm Diag w/CAD if perf and 3D Robby 01/08/23 [facility] [place] Evaluation + Plan note Future Appointments Appointment Date:01/08/2023 09:15:00 AM Scheduled Provider: Location:.[facility] Appointment Type:MA Diagnostic (FT) Appointment Date:01/11/2023 01:40:00 PM Scheduled Provider:Paul Gomez MD Location:[facility] Appointment Type: Established 15 Diagnostic Tests Pending * Wound Culture 01/04/23 Future Scheduled Tests Radiology* MA Mamm Diag w/CAD if perf and 3D Robby [facility]08[facility]23 [facility] Future Appointments Appointment Date:01/11/2023 01:40:00 PM Scheduled Provider:Paul Gomez MD Location:[facility] Appointment Type:GS Established 15 [facility] Future Appointments Appointment Date:06/17/2023 09:00:00 AM Scheduled Provider: Location:.[facility] Appointment Type:CV Echo (FT) Future Scheduled Tests Radiology* Echo Transthoracic Complete 06/17/23 [facility] noteNo InformationNortDuke Lifepoint [facility] [employer] Other Evaluation noteNolakeland regional hospital [email or web address] Other History general Narrative - Reported* Type [...] above Hospitalization History left hip surgery 06/2019 [facility] Other [facility] general Narrative - [employer] Other [facility] general Narrative - Reported* Type Description Date [...] 06/2019 Hospitalization History Fracture of Pelvis 03/22 [facility] Other History of Present illness Narrative* Patient [...] and EKG with her and her son -[facility] 600 DO Work Phone: History [...] and EKG with her and her son [facility] 600 DO Work Phone: History [...] to repeat her lab work as ordered -[facility] 600 DO Work Phone: History of Present [...] her we will consider repeating her echocardiogram [facility] 600 DO Work Phone: Hospital Discharge instructions No data available for this section [facility] data available for this section [facility] Purpose Family History Mother Name [...] DATE CREATED AUTHOR AUTHOR'S ORGANIZ ATION 12/05/2020 [facility] DATE CREATED AUTHOR AUTHOR'S ORGANIZ ATION 11/14/2022 [facility] DATE CREATED AUTHOR AUTHOR'S ORGANIZ ATION 06/03/2023 [facility] DATE CREATED AUTHOR AUTHOR'S ORGANIZ ATION 06/18/2023 [facility] DATE CREATED AUTHOR AUTHOR'S ORGANIZ ATION 06/19/2023 [facility] REASON FOR VISIT (unrecogniz ed [...] lasixClinical Acute Illnessrefill vit d, amlodipinemed/allergy list [facility] Follow up, Due for Medicare Wellness- BK (patient is ok with medicare wellness), patient did see ENT-- was told nothing is structurally wrong with her ears, still waiting on shipyard painter appt.. and was wondering if she could [...] content) Personnel Name: JAVIER MARY DO Address: [address] [place] [address]- Name: Ivory Villanueva Personnel Name: JAVIER MARY DO Address: Address: [address] [place] [address]- Name: Ivory Villanueva Personnel Name: JAVIER MARY DO Address: Address: [address] [place] [address] Name: Ivory Villanueva Personnel Name: USMAN DO, JAVIER M Address: Address: [address] [place] [id number]- [place] Name: Ivory Villanueva Personnel Name: USMAN DO, JAVIER M Address: Address: [address] [place] [address]- [place] Name: Ivory Villanueva Personnel Name: USMAN DO, JAVIER M Address: Address: [address] [place] [address]- [place] Name: Ivory Villanueva Personnel Name: USMAN DO, JAVIER M Address: Address: [address] [place] [phone]- [place] Name: Ivory Villanueva Personnel Name: USMAN DO, JAVIER M Address: Address: [address] [place] [address]- [place] Name: Ivory Villanueva Personnel Name: USMAN DO, JAVIER M Address: Address: [address] [place] [address]- [place] Name: Ivory Villanueva Personnel Name: USMAN DO, JAVIER M Address: Address: [address] [place] [address]- [place] Name: Ivory Villanueva Personnel Name: USMAN DO, JAVIER M Address: Address: [address] [place] [address]- [place] Name: Ivory Villanueva Personnel Name: USMAN DO, JAVIER M Address: Address: [address] [place] [phone]- [place] Name: Ivory Villanueva Personnel Name: USMAN DO, JAVIER M Address: Address: [address] [place] [address]- [place] Name: Ivory Villanueva Personnel Name: USMAN DO, JAVIER M Address: Address: [address] [place] [address]- [place] Name: Ivory Villanueva FOR RECORDS PERTAINING [...] BE BASED ON THE PRIMARY CLINICAL RECORDS. [facility]. provides no warranty or guarantee of the accuracy or completeness of information in this document.
== END 2023-10-28 14:22 | disposition home or self-care (01) ==
LOC: VC 14:21
PROVIDERS: PCP Radiology Diagnostic Radiology; Visit Provider Radiology Diagnostic Radiology
DX: I83.813 Varicose veins of bilateral lower extremities with pain (principal)
CPT/HCPCS: 36466

== ENCOUNTER 2023-11-05 12:55 | Outpatient (OUT) | payer MEDICARE, SELFPAY ==
--- NOTE | 2023-11-05 12:57 | VEIN_ITS ---
Patient Name: DARWIN ESPINO MR#: [id number] : 1940 Exam Date: 11/05/2023 Ordering Doctor: DR MARQUISE FRANCISCO M.D. RADIOLOGY REPORT PROCEDURE: FACILITY EST LMTD [facility]IN [facility] - OFFICE VISIT FOLLOW UP COMPARISON: [facility] EST LMTD, 10/13/2023. [facility] EST LMTD, 09/20/2023. 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 The patient wear her compression stockings. The patient did not require oral analgesics. The patient has tried exercise to the best of ability given the time of year and winter conditions. Physical exam demonstrates extensive bilateral thrombosed varicose veins. Moderate hemosiderin staining is stable. No areas of erythema or warmth to suggest cellulitis or thrombophlebitis. No ulceration. Review of the ultrasound performed the same day demonstrates occlusive thrombus extending throughout the treated varicose veins. No deep vein thrombus. No residual varicose veins are observed. At this time the patient's treatments are completed. Patient was asked to follow-up in 12-24 months, sooner if new problem arises. VEIN/[facility] EST LMTD IMPRESSION: 1. Successful ablation of incompetent varicose veins 2. Treatment plan is complete. PLAN: Follow-up in 12-24 months Nurse notes, history and physical were reviewed and confirmed, see attached forms. The nurse was present throughout the physical exam and consultation Dictated by: Marquise Francisco MD on 11/05/2023 at 13:39 Approved by: Marquise Francisco MD on 11/05/2023 at 13:40
--- NOTE | 2023-11-05 12:57 | VEIN_ITS ---
Patient Name: DARWIN ESPINO MR#: [id number] : 1940 Exam Date: 11/05/2023 Ordering Doctor: DR MARQUISE FRANCISCO M.D. RADIOLOGY REPORT PROCEDURE: VC EXT VENOUS RT LMTD COMPARISON: [facility] EXT VENOUS RT LMTD, 10/13/2023. INDICATIONS: I80.01 Phlebitis of superficial veins of rt lower extremity TECHNIQUE: Lower extremity munroe scale and Duplex Doppler evaluation of the deep venous system from the inguinal ligament through the calf veins. FINDINGS: REGION: Right lower extremity. THROMBI: Negative for DVT. 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 COMPRESSIBILITY: Non-compressible segments corresponding to thrombus FLOW: Areas of no flow corresponding to thrombus OTHER: No patent varicose veins remain. CONCLUSION: Post ablation occlusion treated varicose veins with no deep vein thrombus Dictated by: Marquise Francisco MD on 11/05/2023 at 13:36 Approved by: Marquise Francisco MD on 11/05/2023 at 13:38
--- OUTSIDE RECORDS SUMMARY | 2023-11-05 12:59 | XMS_ITS | CCD ---
Author Name Unknown Address [address] [place] [address] Organization [facility] Care Team Providers Care Ict Sales Representative Name Role Phone DARVIN HUTCHINS Admitting Unavailable [...] Consulting Unavailable Shadi Maryh M Unavailable Unavailable [id number], Basar Unavailable Un available Traboulssi, Mourhaf Unavailable Unavailable zz-Sareyyupoglu, Basar Unavailable Unavailab le Javier Mary M Unavailable Unavailable Unavailable SHADI MARYH M Primary Care Physician [phone] Ivory Villanueva Unavailable Unavailable Eva Salcedo Unavailable [...] Ampicillin; Translations: [ampicillin] Drug Allergy anaphylaxis [facility] (1 source) Ciprofloxacin Drug Allergy [facility] (2 sources) Dicyclomine; Translations: [dicyclomine] Drug Allergy [facility] (1 source) Iodine (And Iodine Containting Drugs) Drug allergy (disorder) [facility] (2 sources) traMADol; Translations: [traMADol] Drug Allergy [facility] (20 sources) Erythromycin; Translations: [erythromycin] Drug Allergy Flushing (disorder) [facility] Work Phone: (20 sources) Ampicillin; Translations: [ampicillin] Drug Allergy Blushing, function (observable entity), anaphylaxis [facility] [employer] Other (20 sources) Ciprofloxacin; Translations: [Cipro] Drug Allergy Hallucinations [facility] [employer] Other (18 sources) Acetaminophen / oxyCODONE; Translations: [acetaminophen-o xycodone] Drug Allergy paranoid and hauucinated, Hallucinations, Psychosis [facility] (20 sources) Dicyclomine; Translations: [dicyclomine] Drug Allergy Unknown (qualifier value) [facility] [employer] Other (20 sources) traMADol; Translations: [tramadol] Drug Allergy Hallucinations (finding) [facility] [employer] Other (20 sources) Azithromycin; Translations: [azithromycin] Drug Allergy vomiting [facility] [employer] Other (20 sources) CT Scan dye Propensity to adverse reactions Unknown [facility] [employer] Other (1 source) Ciprofloxacin Drug Allergy hallucinations [facility] [employer] Other (1 source) Dicyclomine Drug Allergy stomach upset [facility] [employer] Other (1 source) traMADol Drug Allergy mental changes [facility] [employer] Other (1 source) Ampicillin Drug Allergy 10-29-19 [facility] (1 source) Ciprofloxacin Drug Allergy 10-29-19 [facility] (1 source) Erythromycin Drug Allergy 10-29-19 [facility] (2 sources) Contrast media Allergy to substance (finding) [facility] 600 DO Work Phone: Medications Current [...] Ordered donepezil hydrochloride 5 mg oral tablet (4 sources) take 1 tablet by mouth every [...] Start: 08-20-2018 fluticasone 0. 05 mg/inh Nasal [place] 2 spray(s), Nasal, Daily, Refill(s) 0 Start [...] Not-Taking Start: 02-10-2016 fluticasone 0.05 mg/inh Nasal [place] (9 sources) Start: 08-20-2018 fluticasone 0. 05 mg/inh Nasal [place] 2 spray(s), Nasal, Daily, Refill(s) 0 Start [...] Date: 07/07/19 Status: Ordered Vitamin D (Ergocalciferol) 20908 UNIT (11 sources) take 1 capsule by mouth every we ek Vitamin D (Ergocalciferol) 75736 UNIT 1 capsule Orally weekly for 90 days Active Vitamin D2 50,000 intl units (1.25 mg) oral capsule (14 sources) Start: 04-04-2021 take 1 capsule by mouth every week Vitamin D2 50,000 intl units (1.25 mg) oral capsule International_Unit cap(s), Oral, qWeek, Refills(s) 0 Start Date: 04/04/21 Status: Ordered Start: 04-04-2021 take 1 capsule by mo [facility] once daily Vitamin D2 50,000 intl [...] days, # 30 cap(s), Refills(s) 0, Pharmacy: [facility], 165, cm, 11/12/22 11:52:00 EST, Height/Length Dosing, 69, kg, 11/12/22 11:52:00 EST, Weight Dosing Start Date: 11/12/22 Status: Ordered Start: 01-31-2022 take 1 capsule by [facility] four times daily cephalexin 500 mg Cap 500 mg = 1 cap(s), Oral, QID, # 40 cap(s), Refills(s) 0, Pharmacy: [facility], 160, cm, 01/31/22 20:02:00 EDT, [...] every week Vitamin D (Ergocalciferol) 1.25 MG (50213 UT) Oral Capsule Take 1 capsule by mouth once weekly Quantity: 12 Refills: 0 Ordered: 10-Jul-2021 DO Start : 10-Jul-2021 Active Start: 04-04-2021 take 1 capsule by [facility] once daily Vitamin D2 50,000 intl units (1.25 mg) oral capsule International_Unit cap(s), Oral, Daily, Refills(s) 0 Start Date: 04/04/21 Status: Ordered take 1 capsule by [facility] every week Vitamin D (Ergocalciferol) 87516 UNIT 1 capsule Orally weekly for 90 days Active ferrous fumarate 325 mg oral tablet (2 sources) Ferrous Fumarate 325 (106 Fe) MG TABS TAKE 1 TABLET DAILY DIRECTED. Refills: 0 Active microencapsulated potassium chloride 20 meq extended release oral tablet (2 sources) take 1 tablet by [facility] daily Klor-Con M20 20 MEQ Oral [...] disease (17 sources) Atherosclerotic heart disease of [place] coronary artery without angina pectoris; Translations: [...] knee, unspecified] Chronic Other aftercare (1 source) prison (current) use of anticoagulants; Translations: [DIETICIAN CURRNT USE ANTICOAGULANTS] Onset: 12-30-19 Episodic Other aftercare (1 source) Other exterminator (current) drug therapy; Translations: [OTH DIETICIAN CURRENT DRUG THERAPY] Onset: 12-30-19 Episodic Other aftercare (1 source) prison (current) use of aspirin; Translations: [GROUP HOME CURRENT USE OF ASPIRIN] Onset: 12-30-19 Episodic Other aftercare (1 source) Long-term current use of anticoagulant; Translations: [long term care pharmacist (current) use of anticoagulants] Onset: 01-12-20 Episodic [...] 09-20-2023 HbA1c (Bld) [Mass fraction] 5.5 % [facility] [employer] Other HbA1c (Bld) [Mass fraction]o n 09-20-2023 A1C HEMOGLOBIN [facility] [employer] Other Consent for Treatmenton Consent for Treatment [id number] #1.00CD:127 Normal [facility] No Panel Informationon 06-17 Normal -[facility] [address] [place] Work Phone: John 06-05-2023 ALT No additional P-5'-P [Catalytic activity/Vol] 16 Int._Unit/L Normal 6-46 [facility] Comment on above: Performed By: #### 1 [id number], 4637437, 1727647, 9086378, 2247732 #### [facility] [address] [place] [address] Ryder 06-05-2023 AST [Catalytic activity/Vol] 19 Int._Unit/L Normal 5-43 [facility] Comment on above: Performed By: #### 1 [id number], 6554680, 1584645, 2233584, 4397293 #### [facility] [address] [place] [address] BMPon 06-05-2023 Anion gap [Moles/Vol] 12 mmol/L Normal 6-16 [facility] Comment on above: Performed By: #### 1 6372879, 3770826, 7061783, 5498225, 7962517 #### [facility] [address] [place] [address] Calcium [Mass/Vol] 9.7 mg/dL Normal 8.9-11.1 [facility] Comment on above: Performed By: #### 1 2860419, 9777013, 4587412, 5624503, 3629297 #### [facility] [address] [place] [address] Chloride [Moles/Vol] 105 mmol/L Normal 101-111 [facility] Comment on above: Performed By: #### 1 0410874, 4680595, 7444679, 3807678, 5686460 #### [facility] [address] [place] [address] CO2 [Moles/Vol] 27 mmol/L Normal 21-31 [facility] Comment on above: Performed By: #### 1 0515376, 9726279, 4205934, 4391041, 8051160 #### [facility] [address] [place] [address] Creatinine [Mass/Vol] 0.9 mg/dL Normal 0.5-1.3 [facility] Comment on above: Performed By: #### 1 0930026, 0313346, 0696071, 7048932, 6156920 #### [facility] [address] [place] [address] Glucose [Mass/Vol] 103 mg/dL Normal 55-199 [facility] Comment on above: Result Comment: If t his glucose result represents a fasting glucose, interpretation should refer to the following reference range: 55-99 mg/dL Performed By: #### 1 5895107, 6839053, 6131503, 4119953, 3592903 #### [facility] [address] [place] [address] Potassium [Moles/Vol] 3.9 mmol/L Normal 3.5-5.3 [facility] Comment on above: Performed By: #### 1 2530821, 7459966, 3259746, 8898049, 2567915 #### [facility] [address] [place] [address] Sodium [Moles/Vol] 140 mmol/L Normal 135-145 [facility] Comment on above: Performed By: #### 1 5952219, 4732899, 1796744, 5618988, 6799176 #### [facility] [address] [place] [address] Urea nitrogen [Mass/Vol] 24 mg/dL High 5-21 [facility] Comment on above: Performed By: #### 1 7499252, 0925529, 4000924, 3846544, 1021848 #### [facility] [address] [place] [address] Urea nitrogen/Creatinine [Mass ratio] 27 No Units High 10-20 [facility] Comment on above: Performed By: #### 1 0705482, 0949951, 4427746, 7769087, 9769472 #### [facility] [address] [place] [address] CHEMISTRYOrdered By: SYSTEM SYSTEM on 06-05-2023 ALT [...] 65 mL/min/1.73 m2 Normal >=59mL/min/1 .73 m2 [facility] Chem S Glucose [Mass/Vol] 103 mg/dL Normal [...] Treatmenton 05-12 Consent for Treatment [id number] #1.00CD:127 Normal [facility] Laboratory - Chemistry and C hemistry - challengeon 06-05-2023 Cholesterol [Mass/Vol] 76 mg/dL Normal <=129 -[facility] [address] [place] Work Phone: Cholesterol in LDL [Mass/Vol] 9 mg/dL Normal 7-40 -[facility] [address] [place] Work Phone: Laboratory - Chemistry and C hemistry - challengeOrdered By: SYSTEM SYSTEM on 06-05-2023 CO2 [Moles/Vol] 27 mmol/L Normal 21-31 [facility] Marino mack Lipid Panelon 06-05-2023 Cholesterol [Mass/Vol] 170 mg/dL Normal 120-200 [facility] Comment on above: Performed By: #### 1 [id number], 9083780, 4227106, 6003563, 6386621 ####[facility] [address] [place] [address] Cholesterol in HDL [Mass/Vol] 72 mg/dL Invalid Interpretation Code [facility] Comment on above: Result Comment: HDL > or equal to 60 mg/dL: Low cardiovascular risk HDL < 40 mg/dL : High cardiovascular risk Performed By: #### 1 3518114, 7169225, 3363707, 0161290, 9244732 ####[facility] [address] [place] [address] Cholesterol in LDL [Mass/Vol] 76 mg/dL Normal <=129 [facility] Comment on above: Performed By: #### 1 8580356, 2725398, 0418660, 9565551, 8368264 ####[facility] [address] [place] [address] Cholesterol in VLDL [Mass/Vol] 9 mg/dL Normal 7-40 [facility] Comment on above: Performed By: #### 1 5915979, 7062786, 8522625, 6431252, 7987143 ####[facility] [address] [place] [address] Triglyceride [Mass/Vol] 46 mg/dL Normal <=149 [facility] Comment on above: Performed By: #### 1 3565996, 5202485, 7157314, 0522591, 9804183 ####[facility] [address] [place] [address] No Panel Informationon 08-26 -2023 46 mg/dL Normal <=149 [facility] [address] [place] Work Phone: 72 mg/dL [facility] [address] [place] Work Phone: Comment on above: HDL > or equal to 60 mg/dL: Low cardiovascular riskHDL < 40 mg/dL : High cardiovascular risk 170 mg/dL Normal 120-200 [facility] [address] [place] Work Phone: 19 {Int._Unit/L} Normal 5-43 [facility] [address] [place] Work Phone: 16 {Int._Unit/L} Normal 6-46 [facility] [address] [place] Work Phone: 65 {mL/min/1.73_m2} Normal >=59 [facility] [address] [place] Work Phone: Comment on above: Chronic kidney disea se could be indicated at eGFR's of less than 60 mL/min/1.73m2. Kidney failure is indicated at less than 15 mL/min/1.73m2. 12 {mEq/L} Normal 6-16 [facility] [address] [place] Work Phone: 105 mmol/L Normal 101-111 [facility] [address] [place] Work Phone: 3.9 mmol/L Normal 3.5-5.3 [facility] [address] [place] Work Phone: 140 mmol/L Normal 135-145 [facility] [address] [place] Work Phone: 9.7 mg/dL Normal 8.9-11.1 [facility] [address] [place] Work Phone: 27 {No_Units} above high threshold 10-20 [facility] [address] [place] Work Phone: 0.9 mg/dL Normal 0.5-1.3 [facility] [place] Work Phone: 24 mg/dL above high threshold 5-21 [facility] [place] Work Phone: 103 mg/dL Normal 55-199 [facility] [address] [place] Work Phone: Comment on above: If this glucose resu lt represents a fasting glucose, interpretation should refer to the following reference range: 55-99 mg/dL Physician Orderon 06-05-2023 Physician Order [id number] #1.00CD:127 Normal [facility] eGFRon 06-05-2023 GFR/1.73 sq M.predicted among non-blacks MDRD (S/P/Bld) [Vol rate/Area] 65 mL/min/1.73 m2 Normal >=59 [facility] Comment on above: Order Comment: Order added by Discern Expert. Result Comment: Rn Icu karl kidney disease could be indicated at eGFR's of less than 60 mL/min/1.73m2. Kidney failure is indicated at less than 15 mL/min/1.73m2. Performed By: #### 1 9747070, 5718767, 3090765, 6324307, 7130719 #### [facility] [address] [place] [address] Office Visit (Cardiology)on 06-02-2023 Follow-up visit Diagnoses/Problems [...] Past Med (more content not included)... Normal [facility] Physician Orderon 06-02-2023 Physician Order [id number] #1.00CD:127 Normal [facility] Tobacco Screening.on 023 Adult depression screening assessment No [facility] [employer] [address] [place] Work Phone: Fall risk assessment b) One or more fall s in the last year [facility] [employer] 600 DO Work Phone: Tobacco use status CPHS b) No [facility] 600 DO Work Phone: Folateon 04-26-2023 Folate [Mass/Vol] ng/mL Normal >=6.7 [facility] Comment on above: Performed By: #### 1 9990976, 8863811, 0102925, 6950077 #### [facility] [address] [place] [address] Vit B12on 04-26-2023 Cobalamin (Vitamin B12) [Mass/Vol] 474 pg/mL Normal 50-1500 [facility] Comment on above: Performed By: #### 1 [id number], 6174616, 9516416, 4479889 #### [facility] [address] [place] [address] T3 Freeon 04-25-2023 Free T3 [Mass/Vol] 2.5 pg/mL Invalid Interpretation Code 2.0-4.4 [facility] Comment on above: Result Comment: Perf ormed at: [facility] [address] [id number] PhD Vj Kaplan Performed By: #### 1 5176589, 7255235, 5225733, 7633832 #### [facility] [address] [place] [address] CHEMISTRYOrdered By: SYSTEM SYSTEM on 04-24-2023 25-hydroxyvitamin D3 [Mass/Vol] 50.8 ng/mL Normal 30.0 - 100.0 ng/mL [facility] Remisol Free T4 [Mass/Vol] 0.71 ng/dL Normal 0.58 - 1. 64 ng/dL [facility] Remisol TSH Qn 3.36 m[IU]/L Normal 0.34 - 5.60 mcIU/mL [facility] Remisol Consent for Treatmenton 04-10 Consent for Treatment [id number] #1.00CD:127 Normal [facility] Free T4on 04-24-2023 Free T4 [Mass/Vol] 0.71 ng/dL Normal 0.58-1.64 [facility] Comment on above: Performed By: #### 1 0834337, 0034663, 1298775, 2666644 #### [facility] [address] [place] [address] Physician Orderon 04-24-2023 Physician Order [id number] 6#1.00CD:127 Normal [facility] TSHon 04-24-2023 TSH Qn 3.36 m[IU]/L Normal 0.34-5.60 [facility] Comment on above: Performed By: #### 1 8428442, 2866392, 9724785, 4681695 #### [facility] [address] [place] [address] Vitamin D 25 Hydroxyon 04-24 25-hydroxyvitamin D3 [Mass/Vol] 50.8 ng/mL Normal 30.0-100.0 [facility] Comment on above: Result Comment: Vit panda D deficiency has been defined as a level of serum 25-OH vitamin D less than 20 ng/mL (1,2) by the [place] of Medicine and an Endocrine Society practice guideline. The Endocrine Society further defined vitamin D insufficiency as a level between 21 and 29 ng/mL (2). 1. IOM ([place] of Medicine). 2010. Dietary reference intakes for calcium and D. [place]: The National Academies Press. 2. Patrick MF, Jennifer NC, Dustin HWANG, et al. Evaluation, treatment, and prevention of vitamin D deficiency: an Endocrine Society clinical practice guideline. JCEM. 2011 Apr; 96 (7):1911-30. Performed By: #### 1 8262965, 6623083, 6859264, 6157576, 7344405 #### [facility] [address] [place] [address] Detention Recordson 04-07 Detention Records [id number]#1.00CD:127 Normal [facility] Family Medicine Office/Clini c Noteon 04-02-2023 Family Medicine Office/Clinic Note Chief Complaint TCU Discharge History of Present Illness Patient is being seen today for a discharge visit. TCU ADMIT from [facility] 03/20 - Fell while watering yard, unable [...] appropriate mood and affect. Assessment/Plan Home Health Eyfc-sq-Fzva Encounter Type: Medicare Reason for Icdh-ss-Jhss (Diagnosis): DISCHARGE DIAGNOSIS Encounter Detail I certify that I conducted and documented that a orls-xv-xdqb (F2F) encounter with the consumer occurred within the 90 days prior to the home health services start of care date, or within 30 days following the start of care date (inclusive of the start of care date), preceding the certification of medical necessity. Assisted: Yes Physical Therapy: Yes Occupational Therapy: Yes Speech Therapy: No Rn Clinical Documentation Specialist: Yes Claim Adjuster: Yes Need for Home Health Services I certify based on my findings that... a. Home health services are medically necessary for this patient, including either intermittent longterm and/or therapy, AND b. The patient cannot [...] q12hr Tyl (more content not included)... Normal [facility] Comment on above: Result Comment: Elec tronically Signed By: New ALBERTS, Jes Jang\.br\Date and Time Signed: 04/02/23 14:12 EDT Operative Reporton Operative Report Indication for Surgery 82-year-old female with left breast epidermal cyst here for excision Preoperative Diagnosis 1 cm left breast epidermal cyst Postoperative Diagnosis As above Operation Left breast epidermal cyst excision Surgeon(s) Paul Gomez Check Totaler None Anesthesia Quarter percent Marcaine with epinephrine [...] was put in ALL capital letters Normal [facility] Comment on above: Result Comment: Elec tronically Signed By: Patricia GUILLEN, Paul Rausch.meme\Date and Time Signed: 03/25/23 16:42 EDT Family Medicine Office/Clini c Noteon 03-24-2023 Family Medicine Office/Clinic Note History of Present Illness TCU ADMIT from [facility] 03/20 Fell while watering yard, unable to [...] capsule, Oral, qWeek, Investigating: not rec'd for mcfp use Allergies traMADol (Hallucinations) Percocet 5/325 (paranoid [...] virus vacci (more content not included)... Normal [facility] Comment on above: Result Comment: Elec tronically Signed By: MG GUILLEN, Aaron\.br\Date and Time Signed: 03/23/23 22:28 EDT Discharge Instructionson Discharge Instructions [id number]#1.00CD:127 Normal [facility] Discharge Note-Nursingon Discharge Note-Nursing DARWIN HEART [...] capsule) fluticasone nasal (fluticasone 0.05 mg/inh Nasal [place]) furosemide (furosemide 40 mg Tab) lisinopril (lisinopril [...] Test Results None Pharmacy Information [facility] New Follow Up Appointments after Discharge Follow Up with JAVIER MARY When: In 0 days Where: [address] [place] [address]- Business (1) Medications What How Much When [...] fluticasone nasal (fluticasone 0.05 mg/ inh Nasal [place]) 2 Sprays Nasal Inhalation Every day Unchanged [...] Mixed hyperlipidemia (more content not included)... Normal [facility] Inpatient Clinical Summaryon 03-22-2023 Inpatient Clinical Summary [address] [address] Clinical Summary Person Information: Name: DARWIN HEART Age: 82 Years : 1940 Sex: Female PCP: JAVIER MARY DO Marital Status: Race: White Ethnicity: Non- or Language: [place]an Visit Id: Visit Reason: Hip pain-swelling; Fall; FRACTURE OF INFERIOR PUBIC RAMUS, HIP PAIN, FRACTURE OF SUPERIOR PUBIC RAMUS Speciality: Acuity: Enc Type: Inpatient Med Service: Medical Arrival: 03/20/2023 20:01:12 Discharge: Dispo Type: Admitted as IP to this Hosp Address: [address] [place] [address] [address] [place] [phone] Provider Notes: Diagnosis: 1:Fracture of inferior pubic [...] week. fluticasone nasal (fluticasone 0.05 mg/inh Nasal [place]) 2 Sprays Nasal Inhalation every day. furosemide (furosemide 40 mg Tab) 1 Tablets By Mouth every day. lisinopril (lisinopril 20 mg Tab) 1 Tablets By Mouth every day. metoprolol (Metoprolol tartrate 25 mg Tab) 1 Tablets By Mouth 2 times a day. Care Team Members: Attending Physician: Jag CARVER DO Consulting Physician: Marquise Mesa DO Referring Physician: Follow up: Patient Education Information: Normal [facility] Inpatient Patient Summaryon 03-22-2023 Inpatient Patient [...] capsule) fluticasone nasal (fluticasone 0.05 mg/inh Nasal [place]) furosemide (furosemide 40 mg Tab) lisinopril (lisinopril [...] Test Results None Pharmacy Information [facility] New Follow Up Appointments after Discharge Follow Up with JAVIER MARY When: In 0 days Where: [address] [place] [address]- Business (1) Medications What How Much When [...] fluticasone nasal (fluticasone 0.05 mg/ inh Nasal [place]) 2 Sprays Nasal Inhalation Every day Unchanged [...] Mixed hyperlipidemia (more content not included)... Normal [facility] Inpatient Patient Summary [place] [address] Patient Discharge Instructions PERSON INFORMATION Name: DARWIN [...] Dose: fluticasone nasal (fluticasone 0.05 mg/inh Nasal [place]) 2 Sprays Nasal Inhalation every day. Last [...] week. fluticasone nasal (fluticasone 0.05 mg/inh Nasal [place]) 2 Sprays Nasal Inhalation every day. furosemide (furosemide 40 mg Tab) 1 Tablets By Mouth every day. lisinopril (lisinopril 20 mg Tab) 1 Tablets By Mout (more content not included)... Normal [facility] Message from Medicareon 03-11 Message from Medicare [id number] 1#1.00CD:127 [facility] Monitor Recordon 03-22-2023 Monitor Record [id number]#1.00CD:127 Normal [facility] Monitor Record [id number]#1.00CD:127 Normal [facility] Monitor Record [id number]#1.00CD:127 Normal [facility] Monitor Record [id number] 2#1.00CD:127 Normal [facility] Progress Note-Physicianon Progress Note-Physician Basic Information [...] artery disease (I25.10: Atherosclerotic heart disease of [place] coronary artery without angina pectoris) No [...] obtained. Bipola (more content not included)... Normal [facility] Comment on above: Result Comment: Elec tronically Signed By: TWIN GUILLEN, Silvia\.br\Date and Time Signed: 03/22/23 11:46 EDT Transfer Documentson 023 Transfer Documents [id number] 8#1.00CD:127 Normal [facility] ABO/Rhon 03-21-2023 ABO/Rh Positive Invalid Interpretation Code [facility] Comment on above: Performed By: #### 1 [id number], 6603959, 2275027, 7585990 #### [facility] [address] [place] [address] ABO/Rh History Checkon 03-21 ABO/Rh History Check Verified Hx Blood Type Normal [facility] Comment on above: Performed By: #### 1 4830811, 9270222, 2859752, 8036177 #### [facility] [address] [place] [address] ABSCon 03-21-2023 ABSC Gel Interp Negative Normal [facility] Comment on above: Performed By: #### 1 0787076, 0731573, 8237215, 1799528 #### [facility] [address] [place] [address] Auto Diffon 03-21-2023 Basophils/100 WBC (Bld) 0.8 % Normal 0.0-2.0 [facility] Comment on above: Order Comment: Order Added by Discern Expert. Performed By: #### 1 7351582, 6022334, 6751969, 6280771 #### [facility] [address] [place] [address]686 Basophils/Leukocytes Auto (Bld) [Pure # fraction] 0.0 E9/L Normal 0.0-0.2 [facility] Comment on above: Order Comment: Order Added by Discern Expert. Performed By: #### 1 9782838, 1255721, 0708582, 6201429 #### [facility] [address] [place] [address]233 Eosinophils/100 WBC (Bld) 1.6 % Normal 0.0-8.0 [facility] Comment on above: Order Comment: Order Added by Discern Expert. Performed By: #### 1 1012878, 2094994, 6512363, 7361399 #### [facility] [address] [place] [address]2845 Eosinophils/Leukocyte s Auto (Bld) [Pure # fraction] 0.1 E9/L Normal 0.0-0.5 [facility] Comment on above: Order Comment: Order Added by Discern Expert. Performed By: #### 1 2082335, 5439329, 0270504, 8461645 #### [facility] [address] [place] [address] Lymphocytes/100 WBC (Bld) 22.4 % Normal 14.0-50.0 [facility] Comment on above: Order Comment: Order Added by Discern Expert. Performed By: #### 1 1373184, 4500250, 0243322, 6588082 #### [facility] [address] [place] [address] 22616 Lymphocytes/Leukocyte s Auto (Bld) [Pure # fraction] 1.2 E9/L Normal 1.0-4.0 [facility] Comment on above: Order Comment: Order Added by Discern Expert. Performed By: #### 1 3838332, 6328950, 0529159, 8440463 #### [facility] [address] [place] [address] 53239 Monocytes/100 WBC (Bld) 9.3 % Normal 4.0-14.0 [facility] Comment on above: Order Comment: Order Added by Discern Expert. Performed By: #### 1 1988551, 9644203, 6180797, 7482734 #### [facility] [address] [place] [address] 60594 Monocytes/Leukocytes Auto (Bld) [Pure # fraction] 0.5 E9/L Normal 0.2-1.0 [facility] Comment on above: Order Comment: Order Added by Discern Expert. Performed By: #### 1 3576478, 6870308, 5493991, 1227726 #### [facility] [address] [place] [address] 15792 Neutrophils/100 WBC (Bld) 65.9 % Normal 36.0-75.0 [facility] Comment on above: Order Comment: Order Added by Discern Expert. Performed By: #### 1 4935311, 4188387, 0193982, 0032026 #### [facility] [address] [place] [address] 87723 Neutrophils/Leukocyte s Auto (Bld) [Pure # fraction] 3.5 E9/L Normal 2.0-7.5 [facility] Comment on above: Order Comment: Order Added by Discern Expert. Performed By: #### 1 7564378, 2900909, 0559869, 9703282 #### [facility] [address] [place] [address] 35156 BMPon 03-21-2023 Anion gap [Moles/Vol] 7 mmol/L Normal 6-16 [facility] Comment on above: Performed By: #### 1 8274349, 0877269, 8667561, 4763228 #### [facility] [address] [place] [address] Calcium [Mass/Vol] 9.4 mg/dL Normal 8.9-11.1 [facility] Comment on above: Performed By: #### 1 3732817, 2127318, 5516368, 6668324 #### [facility] [address] [place] [address] Chloride [Moles/Vol] 111 mmol/L Normal 101-111 [facility] Comment on above: Performed By: #### 1 2586436, 2577072, 3799770, 2666033 #### [facility] [address] [place] [address] CO2 [Moles/Vol] 28 mmol/L Normal 21-31 [facility] Comment on above: Performed By: #### 1 9146175, 0433957, 1569311, 1868065 #### [facility] [address] [facility] [place] [address] Creatinine [Mass/Vol] 0.8 mg/dL Normal 0.5-1.3 [facility] Comment on above: Performed By: #### 1 5878996, 9069757, 1296583, 7994175 #### [facility] [address] [place] [address] Glucose [Mass/Vol] 112 mg/dL Normal 55-199 [facility] Comment on above: Result Comment: If t his glucose result represents a fasting glucose, interpretation should refer to the following reference range: 55-99 mg/dL Performed By: #### 1 7125430, 3391093, 3317146, 5268001 #### [facility] [address] [place] [address] Potassium [Moles/Vol] 3.6 mmol/L Normal 3.5-5.3 [facility] Comment on above: Performed By: #### 1 3647851, 5811421, 9734576, 9098065 #### [facility] [address] [place] [address] Sodium [Moles/Vol] 142 mmol/L Normal 135-145 [facility] Comment on above: Performed By: #### 1 7066638, 5654728, 5751724, 2411381 #### [facility] [address] [place] [address] Urea nitrogen [Mass/Vol] 30 mg/dL High 5-21 [facility] Comment on above: Performed By: #### 1 5296856, 4286519, 1114656, 3995401 #### [facility] [address] [place] [address] Urea nitrogen/Creatinine [Mass ratio] 38 No Units High 10-20 [facility] Comment on above: Performed By: #### 1 6242265, 6396107, 9953367, 4171209 #### [facility] [address] [place], [place] [address] Blood Bank ID#on 03-21-2023 BBID# [id number] Invalid Interpretation Code [facility] Comment on above: Performed By: #### 1 5537317, 9948494, 2230118, 2849128 #### [facility] [address] [place] [address] CBC w/ Auto Diffon 3 Erythrocyte distribution width (RBC) [Ratio] 13.4 % Normal 10.9-14.2 [facility] Comment on above: Performed By: #### 1 7765524, 0183300, 2763381, 0156396 #### [facility] [address] [place] [address] Hematocrit (Bld) [Volume fraction] 34.0 % Normal 34.0-46.0 [facility] Comment on above: Performed By: #### 1 5442444, 4407449, 0886764, 9958167 #### [facility] [address] [place] [address] Hemoglobin (Bld) [Mass/Vol] 11.6 g/dL Low 12.0-16.0 [facility] Comment on above: Performed By: #### 1 0469294, 4759181, 1108847, 1141918 #### [facility] [address] [place] [address] MCH (RBC) [Entitic mass] 30.1 pg Normal 27.0-34.0 [facility] Comment on above: Performed By: #### 1 9631302, 0388866, 4281360, 4961483 #### [facility] [address] [place] [address] 28422 MCHC (RBC) [Mass/Vol] 34.2 g/dL Normal 31.4-36.0 [facility] Comment on above: Performed By: #### 1 8109901, 4226377, 3366224, 3901741 #### [facility] [address] [place] [address]015 MCV (RBC) [Entitic vol] 87.9 fL Normal 80.0-100.0 [facility] Comment on above: Performed By: #### 1 6335348, 9318899, 9219017, 8538231 #### [facility] [address] [place] [address] Platelet mean volume (Bld) [Entitic vol] 7.8 fL Normal 6.4-10.8 [facility] Comment on above: Performed By: #### 1 2036400, 3304757, 4813918, 7876053 #### [facility] [address] [place] [address]15 Platelets (Bld) [#/Vol] 171.0 E9/L Normal 150.0-500.0 [facility] Comment on above: Performed By: #### 1 1300868, 6941027, 3717506, 0856893 #### [facility] [address] [place] [address] 13941 RBC (Bld) [#/Vol] 3.9 E12/L Low 4.3-5.9 [facility] Comment on above: Performed By: #### 1 0802616, 0393994, 7541064, 4611237 #### [facility] [address] [place] [address] WBC corrected for nucl RBC Auto (Bld) [#/Vol] 5.3 E9/L Normal 4.0-11.0 [facility] Comment on above: Performed By: #### 1 9997584, 7463969, 5621314, 9006684 #### [facility] [address] [place] [address] CT Head or Brain w/o Contras ton [...] MD Transcribed by: JOLEEN Technologist: NICK Simmons [facility] CT Pelvis w/o Contraston CT Pelvis [...] Oral contrast amount in ml's: 0 Normal [facility] CT Spine Cervical w/o Contra ston [...] MD Transcribed by: JOLEEN Technologist: NICK Simmons [facility] ED Clinical Summaryon 2022 ED Clinical Summary [address] [address] ED Clinical Summary Person Information Name: [facility] Age: 82 Years : 1940 Sex: Female Language: Chilean PCP: JAVIER MARY DO Marital Status: Visit Id: Visit Reason: Hip pain-swelling; Fall; FRACTURE OF INFERIOR PUBIC RAMUS, HIP PAIN, FRACTURE OF SUPERIOR PUBIC RAMUS Speciality: Acuity: 3 Enc Type: Inpatient Med Service: Medical Arrival: 03/20/2023 20:01:12 Discharge: LOS: 000 08:16 Checkin: 03/20/2023 20:01:12 Checkout: 03/21/2023 04:17:19 Dispo Type: Admitted as IP to this [facility] EVENTS: Event Name Event Status Request [...] Care Request 03/21/2023 03:58:43 ADDRESS: [place] [id number] [facility] DOC NOTES: MEDICAL INFORMATION: Prescriptions Given: [...] day. fluticasone nasal (fluticasone 0.05 mg/inh Nasal [place]) 2 Sprays Nasal Inhalation every day. furosemide [...] 8:Paroxysmal atrial fibrillation; 9:Hypertension; 10:Hyperlipidemia; 11:Anxiety Normal [facility] ED Note-Physicianon 03-21-20 ED Note-Physician Basic [...] and Complexity of Problems Differential Diagnosis: [] [facility] Data External documents reviewed: [] My [...] Screen Automated (more content not included)... Normal [facility] Comment on above: Result Comment: Elec tronically Signed By: Rhys Chowdhury PA-C\.br\Date and Time Signed: 03/21/23 00:16 EDT\.br\Electronically Co-Signed By: Gerardo Hernandez DO\.br\Date and Time Co-Signed: 03/21/23 07:25 EDT ED Patient Education Noteon 03-21-2023 ED Patient Education Note Normal [facility] ED Patient Summaryon 023 ED Patient Summary [place] [address] Patient Discharge Instructions Person Information Name: DARWIN [facility] Age: 82 Years Arrival Date: 03/20/2023 20:01:12 Discharge Diagnosis: 1:Fracture of inferior pubic ramus; 2:Fracture of superior pubic ramus; 3:Left hip pain; 4:Anemia; 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 It is important that you follow up with a doctor, nurse practitioner, or physician?s student assistant for ongoing care. If your symptoms [...] opioids can be used to help relieve fgvtvjjf-hz-hnabxu pain and are often prescribed following a [...] care profe (more content not included)... Normal [facility] ED Traumaon 03-21-2023 ED Trauma [id number] 0#1.00CD:127 [facility] Interdisciplinary Note - Jasper e Manageron 03-21-2023 Interdisciplinary Note - [employer] spoke with patient. Patient was previous [...] H/h needs. discussed daughter can transport at in. Discussed PT/OT recommend SNF. discussed local facilities and gave her a list of facilities with ratings. She prefers [facility] and is aware may need nm side and may have a room mate. [facility] but wants to talk with her daughter first. Discussed will need precert from her insurance for SNF. Reviewed Medicare rights, she denies any questions and signs form. gave patient copy of signed form. . [facility] Comment on above: Result Comment: Elec tronically Signed By: Nate CROWLEY, Grisel\.br\Date and Time Signed: 03/21/23 10:39 EDT Interdisciplinary Note - Chiara n 03-21-2023 Interdisciplinary Note - OT Ot [facility] six clicks score 15/24 = SNF. Patient requires assist w/ all LE self care and transfers as this time. Patient is limited w/ attempts at function d/t 1010 pain L hip and low back area w/ transitional movements. Inpatient OT services to follow daily to progress w/ self care skills and transfers. Normal [facility] Monitor Recordon 03-21-2023 Monitor Record [id number] 0#1.00CD:127 [facility] Monitor Record [id number] 2#1.00CD:127 [facility] Monitor Record [id number] 1#1.00CD:127 [facility] Monitor Record [id number] 8#1.00CD:127 Normal [facility] Monitor Record [id number] 6#1.00CD:127 Normal [facility] Monitor Record [id number] 3#1.00CD:127 Normal [facility] Monitor Record [id number] 4#1.00CD:127 Normal [facility] RAD - Preliminary Cat Scan R eporton 03-21-2023 RAD - Preliminary Cat Scan Report [id number] 5#1.00CD:127 Normal [facility] RAD - Preliminary Cat Scan Report [id number] 5#1.00CD:127 Normal [facility] Troponinon 03-21-2023 Troponin I.cardiac [Mass/Vol] 12.00 pg/mL Normal 10.10-27.10 [facility] Comment on above: Result Comment: The 95% CI (Confidence Interval) PPV (Positive Predictive Value) for myocardial infarction in females is 38 pg/mL, in males 51 pg/mL. The results should be used in conjunction with clinical conditions of myocardial infarction. (Access High Sensitivity Troponin I Instructions For Use, Layla Novelty, May 2018) Performed By: #### 1 2728468, 9182915, 4819890, 4680538, 3396933, 5323552, 4399120, 12945044, 4522773 ####[facility] [address] [place] [address] XR Hip 1 View Left + Pelviso [...] mGy = na DAP = na Normal [facility] eGFRon 03-21-2023 GFR/1.73 sq M.predicted among non-blacks MDRD (S/P/Bld) [Vol rate/Area] 74 mL/min/1.73 m2 Normal >=59 [facility] Comment on above: Order Comment: Order added by Discern Expert. Result Comment: Rn Icu karl kidney disease could be indicated at eGFR's of less than 60 mL/min/1.73m2. Kidney failure is indicated at less than 15 mL/min/1.73m2. Performed By: #### 1 3960411, 2801742, 2838988, 5070205 #### [facility] [address] [place] [address] Auto Diffon 03-20-2023 Basophils/100 WBC (Bld) 0.8 % Normal 0.0-2.0 [facility] Comment on above: Order Comment: Order Added by Discern Expert. Performed By: #### 1 8307989, 5104806, 2188444, 0138053, 0518854, 0033658, 1158908, 49816995, 9317342 ####[facility] [address] [place] [address] Basophils/Leukocytes Auto (Bld) [Pure # fraction] 0.1 E9/L Normal 0.0-0.2 [facility] Comment on above: Order Comment: Order Added by Discern Expert. Performed By: #### 1 0083524, 7196087, 9702687, 8530707, 6499910, 2152914, 7415073, 67227480, 8807538 ####[place] [address] [place] [address] Eosinophils/100 WBC (Bld) 1.5 % Normal 0.0-8.0 [facility] Comment on above: Order Comment: Order Added by Discern Expert. Performed By: #### 1 4662149, 9923375, 3424780, 4159054, 2977858, 6602465, 8980583, 78345382, 5689131 ####[address] [address] Eosinophils/Leukocyte s Auto (Bld) [Pure # fraction] 0.1 E9/L Normal 0.0-0.5 [facility] Comment on above: Order Comment: Order Added by Discern Expert. Performed By: #### 1 4361430, 4077389, 4116444, 2289683, 2178671, 3249703, 2299134, 73511080, 8436210 ####[address] [address] Lymphocytes/100 WBC (Bld) 24.3 % Normal 14.0-50.0 [facility] Comment on above: Order Comment: Order Added by Wayne Expert. Performed By: #### 1 2960054, 9558378, 8663439, 2323347, 1160754, 2881918, 5298286, 08454948, 7182955 ####[address] [address] Lymphocytes/Leukocyte s Auto (Bld) [Pure # fraction] 1.7 E9/L Normal 1.0-4.0 [facility] Comment on above: Order Comment: Order Added by Discern Expert. Performed By: #### 1 4335519, 6930986, 6936804, 2777200, 4086586, 9356695, 4686324, 46614783, 4995670 ####[address] [address] Monocytes/100 WBC (Bld) 10.3 % Normal 4.0-14.0 [facility] Comment on above: Order Comment: Order Added by Discern Expert. Performed By: #### 1 0116928, 2211148, 7781179, 6712729, 8127140, 0782497, 8982384, 92337011, 3683580 ####[facility] [address] [place] [address] Monocytes/Leukocytes Auto (Bld) [Pure # fraction] 0.7 E9/L Normal 0.2-1.0 [facility] Comment on above: Order Comment: Order Added by Discern Expert. Performed By: #### 1 7735526, 8201645, 3147198, 2314364, 4413028, 2518968, 3908235, 61158381, 3039020 ####[facility] [address] [place] [address] Neutrophils/100 WBC (Bld) 63.1 % Normal 36.0-75.0 [facility] Comment on above: Order Comment: Order Added by Discern Expert. Performed By: #### 1 0568679, 7655895, 7111584, 6553059, 5004796, 3744700, 5786600, 63507713, 8081100 ####[facility] [address] [place] [address] Neutrophils/Leukocyte s Auto (Bld) [Pure # fraction] 4.5 E9/L Normal 2.0-7.5 [facility] Comment on above: Order Comment: Order Added by Discern Expert. Performed By: #### 1 7785692, 7316756, 7078621, 3462477, 4920599, 6456770, 5202641, 98857456, 1059519 ####[facility] [address] [place] [address] BMPon 03-20-2023 Creatinine [Mass/Vol] 1.1 mg/dL Normal 0.5-1.3 [facility] Comment on above: Performed By: #### 1 5414606, 5788725, 3044989, 3128778, 7408826, 7021963, 9879939, 51487559, 8133243 ####[facility] [address] [place] [address] Urea nitrogen [Mass/Vol] 40 mg/dL High 5-21 [facility] Comment on above: Performed By: #### 1 6728802, 9107508, 8496693, 0090957, 7822141, 6206690, 2821236, 63348673, 1551645 ####[facility] [address] [place] [address] Urea nitrogen/Creatinine [Mass ratio] 36 No Units High 10-20 [facility] Comment on above: Performed By: #### 1 4889799, 5404509, 3585111, 3621305, 6288268, 4795550, 4822581, 24545274, 1743990 ####[facility] [address] [place] [address] Anion gap [Moles/Vol] 11 mmol/L Normal 6-16 [facility] Comment on above: Performed By: #### 1 8256495, 1775139, 6514547, 7243370, 6762151, 2136172, 2054926, 54155579, 9788036 ####[facility] [address] [place] [address] Calcium [Mass/Vol] 9.6 mg/dL Normal 8.9-11.1 [facility] Comment on above: Performed By: #### 1 0578591, 0825678, 1640409, 8123952, 3474614, 5287210, 1942541, 23291782, 4965912 ####[facility] [address] [place] [address] Chloride [Moles/Vol] 106 mmol/L Normal 101-111 [facility] Comment on above: Performed By: #### 1 4217845, 4288427, 9457011, 8931008, 2786444, 2060952, 3343736, 97449400, 2195580 ####[facility] [address] [place] [address] CO2 [Moles/Vol] 29 mmol/L Normal 21-31 [facility] Comment on above: Performed By: #### 1 5926252, 8592866, 7419843, 3003843, 2459188, 9933636, 1358956, 51171711, 0098921 ####[facility] [address] [place] [address] Glucose [Mass/Vol] 104 mg/dL Normal 55-199 [facility] Comment on above: Result Comment: If t his glucose result represents a fasting glucose, interpretation should refer to the following reference range: 55-99 mg/dL Performed By: #### 1 7432219, 5160664, 7881968, 9862707, 8021795, 8621523, 8395568, 83688818, 0828063 ####[facility] [address] [place] [address] Potassium [Moles/Vol] 3.7 mmol/L Normal 3.5-5.3 [facility] Comment on above: Performed By: #### 1 0756456, 2546548, 0637581, 6776196, 6472432, 4441004, 7500202, 03679293, 6734961 ####[facility] [address] [place] [address] Sodium [Moles/Vol] 142 mmol/L Normal 135-145 [facility] Comment on above: Performed By: #### 1 3141421, 6382552, 7806584, 3770682, 2369972, 5985385, 6015983, 86180075, 8213175 ####[facility] [address] [place] [address] CBC w/ Auto Diffon 3 Erythrocyte distribution width (RBC) [Ratio] 13.4 % Normal 10.9-14.2 [facility] Comment on above: Performed By: #### 1 6274900, 9909620, 4254016, 6349228, 3109693, 2950332, 4577512, 74817917, 7140458 ####[facility] [address] [place] [address] Hematocrit (Bld) [Volume fraction] 35.0 % Normal 34.0-46.0 [facility] Comment on above: Performed By: #### 1 9349053, 8096257, 8292457, 8931356, 7048519, 1983320, 1924287, 05318936, 4210431 ####[place] [address] [place] [address] Hemoglobin (Bld) [Mass/Vol] 11.8 g/dL Low 12.0-16.0 [facility] Comment on above: Performed By: #### 1 1839503, 3301740, 2805927, 4061745, 2752535, 7204637, 6859868, 94370203, 1004088 ####[place] [address] MCH (RBC) [Entitic mass] 29.8 pg Normal 27.0-34.0 [facility] Comment on above: Performed By: #### 1 7424918, 2786183, 5100757, 8170703, 4271634, 5713346, 6981402, 89614079, 1762817 ####[place] [address] MCHC (RBC) [Mass/Vol] 33.6 g/dL Normal 31.4-36.0 [facility] Comment on above: Performed By: #### 1 0865908, 6014869, 9395806, 0426114, 0469057, 1729721, 7614201, 96618989, 5999457 ####[place] [address] MCV (RBC) [Entitic vol] 88.7 fL Normal 80.0-100.0 [facility] Comment on above: Performed By: #### 1 4898747, 6483729, 2680527, 3659118, 7053702, 3811271, 9112699, 00607066, 6846150 ####[address] [address] Platelet mean volume (Bld) [Entitic vol] 8.5 fL Normal 6.4-10.8 [facility] Comment on above: Performed By: #### 1 1830089, 8079487, 2458969, 1312227, 3343541, 4181423, 9922198, 59569820, 9339845 ####[facility] [address] [place] [address] Platelets (Bld) [#/Vol] 185.0 E9/L Normal 150.0-500.0 [facility] Comment on above: Performed By: #### 1 2620172, 4434733, 5981811, 1068861, 6969724, 7219640, 0845809, 61248055, 7523762 ####[facility] [address] [place] [address] RBC (Bld) [#/Vol] 4.0 E12/L Low 4.3-5.9 [facility] Comment on above: Performed By: #### 1 3647939, 9003927, 1403596, 6917735, 4494218, 8576088, 6708570, 25690986, 8163750 ####[facility] [address] [place] [address] WBC corrected for nucl RBC Auto (Bld) [#/Vol] 7.1 E9/L Normal 4.0-11.0 [facility] Comment on above: Performed By: #### 1 2597495, 4401244, 4505713, 0653436, 1724967, 7529788, 7187933, 10462376, 2402807 ####[facility] [address] [place] [address] Consent for Treatmenton 03-11 Consent for Treatment [id number]# 1.00CD:127 Normal [facility] Ethanolon 03-20-2023 Ethanol [Mass/Vol] mg/dL Normal <=7 [facility] Comment on above: Performed By: #### 1 0294085, 7591948, 2260497, 0327041 #### [facility] [address] [place] [address] Hep Func Panelon 03-20-2023 Albumin [Mass/Vol] 3.8 g/dL Normal 3.3-5.0 [facility] Comment on above: Performed By: #### 1 0738914, 1679850, 6297103, 0341686, 3902761, 9795194, 4695813, 65424378, 2651863 ####[facility] [address] [place] [address] Albumin/Globulin (S) [Mass conc ratio] 1.3 Normal 1.1-2.2 [facility] Comment on above: Performed By: #### 1 1844153, 8706775, 9107739, 1964145, 6178752, 8439802, 4730946, 50953613, 5080295 ####[address] [place] [address] ALP [Catalytic activity/Vol] 76 Int._Unit/L Normal 21-98 [facility] Comment on above: Performed By: #### 1 0863865, 2462327, 5336767, 8330140, 9000500, 9237639, 3856279, 31797982, 5551372 ####[facility] [address] [place] [address] ALT No additional P-5'-P [Catalytic activity/Vol] 18 Int._Unit/L Normal 6-46 [facility] Comment on above: Performed By: #### 1 6324789, 1400953, 3075422, 9434910, 1659407, 1586155, 6784391, 33582249, 9342550 ####[address] [address] AST [Catalytic activity/Vol] 18 Int._Unit/L Normal 5-43 [facility] Comment on above: Performed By: #### 1 4499567, 4406239, 7582800, 5920216, 5696909, 9996869, 8534973, 34092345, 8664841 ####[facility] [address] [place] [address] Bilirubin [Mass/Vol] 0.5 mg/dL Normal 0.0-1.1 [facility] Comment on above: Performed By: #### 1 3598535, 4405058, 8893989, 0953530, 9690524, 2965775, 0888328, 70177383, 8007189 ####[facility] [address] [place] [address] Bilirubin.direct [Mass/Vol] 0.1 mg/dL Normal 0.1-0.4 [facility] Comment on above: Performed By: #### 1 5093116, 2109254, 3606801, 6926889, 2944369, 1116783, 4847717, 70487626, 7961394 ####[address] [address] Bilirubin.indirect [Mass or moles/Vol] 0.4 mg/dL Normal 0.1-0.9 [facility] Comment on above: Performed By: #### 1 8185625, 9018356, 2427428, 6474246, 0139932, 5642796, 3163770, 91335899, 5885764 ####[address] [address] Globulin (S) [Mass/Vol] 2.9 g/dL Normal 1.4-4.0 [facility] Comment on above: Performed By: #### 1 7543335, 2866912, 7859438, 5119581, 7946138, 9644662, 8855743, 90835506, 9851022 ####[address] [address] Protein [Mass/Vol] 6.7 g/dL Normal 6.0-7.8 [facility] Comment on above: Performed By: #### 1 7238704, 5573894, 5675098, 2703859, 9758272, 8618044, 7815465, 07594394, 2034590 ####[address] [place] [address] Lactic Acidon 03-20-2023 Lactate [Mass/Vol] 0.7 mmol/L Normal 0.5-2.2 [facility] Comment on above: Performed By: #### 1 2330930, 8682743, 4936328, 9249688, 7320477, 2648703, 4998015, 34613456, 4474441 ####[facility] [address] [place] [address] Lipase Levelon 03-20-2023 Lipase [Catalytic activity/Vol] 36 U/L Normal 13-58 [facility] Comment on above: Performed By: #### 1 9092557, 0361892, 8320837, 7155811, 5020529, 1651606, 1907638, 45395919, 3332066 ####[facility] [address] [place] [address] PT & PTTon 03-20-2023 aPTT Coag (PPP) [Time] 38.9 second(s) High 25.1-36.5 [facility] Comment on above: Result Comment: Para [...] the same coagulation reagent and instrumentation as [facility]. Currently there are no coagulation studies available worldwide for children to 14 days, and no normal ranges. Heparin therapeutic range (represented by Anti-Factor Xa activity of 0.2 - 0.4 U/mL) corresponds to PTT of 56.6 - 109.0 sec. Performed By: #### 1 8661400, 9512236, 0976921, 9058465, 1244599, 8723039, 7266226, 60975225, 2814350 ####[facility] [address] [place] [address] INR Coag (PPP) [Relative time] 1.3 {INR} Invalid Interpretation Code [facility] Comment on above: Result Comment: INR results are specifically intended to assess patients stabilized on long-term Anticoagulation therapy suggested INR?s ?Less Intensive Anticoagulation? 2.0 ? 3.0 Conventional Range 3.0 ? 4.5 Performed By: #### 1 7463478, 0807654, 2093292, 4687682, 2924031, 9483707, 2996035, 24321165, 3824940 ####[facility] [address] [place] [address] PT Coag (PPP) [Time] 14.9 second(s) High 9.4-12.5 [facility] Comment on above: Result Comment: 15 [...] the same coagulation reagent and instrumentation as [facility]. Currently there are no coagulation studies available worldwide for children to 14 days, and no normal ranges. Performed By: #### 1 4713887, 2101691, 2472003, 2104018, 7449043, 5631282, 2241255, 17813297, 6575481 ####[facility] [address] [place] [address] Pre-Arrival Noteon 3 Pre-Arrival Note Pre-Arrival Summary Name: , Current Date: 03/20/2023 20:01:50 EDT Gender: Date of : Age: Pre-Arrival Type: EMS ETA: 03/20/2023 20:23:00 EDT Primary Care Physician: Presenting Problem: Pre-Arrival User: Lazaro Morales Referring Source: Location: [place] Completion Date/Time: 03/20/2023 19:53:00 [facility] Emergency Department Pre-Hospital Report Form Vital Signs: 141/85 91p 18rr 96%ra Pre-Hospital Report:fall from standing on elequis and asa l leg pain Treatment in Route: Response to Treatment: Misc. Issues: Normal [facility] eGFRon 03-20-2023 GFR/1.73 sq M.predicted among non-blacks MDRD (S/P/Bld) [Vol rate/Area] 51 mL/min/1.73 m2 Low >=59 [facility] Comment on above: Order Comment: Order added by Discern Expert. Result Comment: Rn Icu karl kidney disease could be indicated at eGFR's of less than 60 mL/min/1.73m2. Kidney failure is indicated at less than 15 mL/min/1.73m2. Performed By: #### 1 1686869, 2477351, 9222954, 4613573, 0451562, 4391786, 5602693, 42792017, 8837687 ####[facility] [address] [place] [address] Provider Letteron 03-17-2023 Provider Letter March 17, 2023 [facility] [address] [place] [address] : 1940 To Whom It May Concern, Please excuse daughter, Doris Benito, from work 03/01/2023. FMLA Sincerely, Dr. Paul Gomez General Surgery Normal [facility] General Surgery Office/Clini c Noteon 03-08-2023 [...] Nat Diamond to record this visit. SILVER bioinformatics support specialist and provider reviewed before signing. SILVER: [...] mg oral tablet fluticasone 0.05 mg/inh Nasal [place], 2 spray(s), Nasal, Daily furosemide 40 mg [...] Recorded 2023-01-04: TP (more content not included)... [facility] Comment on above: Result Comment: Elec tronically Signed By: Paul Gomez MD\.br\Date and Time Signed: 03/07/23 22:39 EDT\.br\Electronically Co-Signed By: Romi Cee\.br\Date and Time Co-Signed: 03/01/23 17:00 EDT IntraOperative Documentson 0 02-22-2023 IntraOperative Documents [id number]# 1.00CD:127 [facility] Main OR Intraoperative Recor don 02-19-2023 Main OR Intraoperative Record IntraOp Document Type FT Summary Primary Physician: Paul Gomez MD Finalized Date/Time: 02/19/23 07:56:54 Pt. Name: [facility]/Sex: 1940 Female Med Rec #: [id number] Physician: Paul Gomez MD Financial #: [id number] Pt. Type: A Room/Bed: AX10/11 Admit/Disch: 02/17/23 [...] Performed Surgeon - Primary Scrub - Primary Hot Roll Inspector - Primary Time In 02/17/23 13:46:00 02/17/23 [...] and tissue Entry 1 Skin Integrity Intact, Ramsay, Warm, and Skin Abnormality No Dry Outcomes [...] Pre-Care Text: Implements (more content not included)... [facility] Discharge Instructionson Discharge Instructions [id number] 7#1.00CD:127 [facility] IntraOperative Documentson 0 02-18-2023 IntraOperative Documents [id number] 1#1.00CD:127 [facility] Preoperative Documentson Preoperative Documents [id number] 4#1.00CD:127 [facility] Prescriptions/Work Noteson 0 02-18-2023 Prescriptions/Work Notes [id number] 1#1.00CD:127 [facility] Discharge Instructionson Discharge Instructions ANETALINDAJEAN [...] capsule) fluticasone nasal (fluticasone 0.05 mg/inh Nasal [place]) furosemide (furosemide 40 mg Tab) lisinopril (lisinopril [...] pain at the operative site [facility] Discharge Instructions Discharge Instructions New Follow Up Appointments after Discharge Follow Up with Paul Gomez When: In 10 days 02/27/2023 EDT Comments: Call for followup appointment Where: [facility] [address] [phone] [facility] (1) Medications What How Much When Instructions [...] fluticasone nasal (fluticasone 0.05 mg/ inh Nasal [place]) 2 Sprays Nasal Inhalation Every day Unchanged [...] of y (more content not included)... Normal [facility] Comment on above: Result Comment: Elec tronically Signed By: Nic CROWLEY, Jamee Jang\.br\Date and Time Signed: 02/17/23 14:35 EDT Inpatient Patient Summaryon 02-17-2023 Inpatient Patient Summary [address] [address] [facility] Clinical Discharge Instructions PERSON INFORMATION Name: [facility] Admitting Physician: Paul Gomez MD Attending Physician: Paul Gomez MD PCP: JAVIER MARY DO Discharge Diagnosis: Comment: PATIENT EDUCATION INFORMATION Instructions: Excision of Skin Lesions, Care After Medication Leaflets: Follow up: With: Address: When: Paul Gomez [address] [phone] Business (1) In 10 days 02/27/2023 Comments: [...] day. fluticasone nasal (fluticasone 0.05 mg/inh Nasal [place]) 2 Sprays Nasal Inhalation every day. furosemide (furosemide 40 mg Tab) 1 Tablets By Mouth every day. lisinopril (lisinopril 20 mg Tab) 1 Tablets By Mouth every day. metoprolol (Metoprolol tartrate 50 mg Tab) 1 Tablets By Mouth 2 times a day. TAKE 1 TABLET BY MOUTH TWICE DAILY. Comment: Normal [facility] Outpatient Surgery Discharge Instructionon 02-17-2023 Outpatient Surgery Discharge Instruction [address] [address] Patient Discharge Instructions PERSON INFORMATION [...] up: With: Address: When: Paul Gomez [address] [place] [address], [facility] [address], [address] [address] [phone] Business (1) In 10 days 02/27/2023 Comments: Call for followup appointment [facility] You may receive a survey from [employer] asking you to rate your care experience. Your feedback is important and will help us understand what we do well and how we can improve the quality of care we provide to you, your loved ones and our community. It?s an honor to serve you. Thank you for choosing [facility] HERE ARE THE MEDICATION CHANGES THAT OCCURRED [...] day. fluticasone nasal (fluticasone 0.05 mg/inh Nasal [place]) 2 Sprays Nasal Inhalation every day. furosemide [...] and water are not available, use hand educational technology specialist. ? Change your dressing as told by [...] dry, and (more content not included)... Normal [facility] Patient Education - Texton 0 02-17-2023 [...] and water are not available, use hand educational technology specialist. ? Change your dressing as told by [...] take sponge baths. General instructions ? Take gmsq-arj-kqcdeqp and prescription medicines only as told by [...] Your wound opens up. Summary ? Take mpxb-nmc-lwvsdch and prescription medicines only as told by [...] provider. Document Revised: 04/28/2022 Document Reviewed: 04/28/2022 [employer] Patient Education ? 2022 [employer] [facility] Pre-Certification Formon Pre-Certification Form [id number]#1 .00CD:127 [facility] Consent for Procedure/Surger yon 01-19-2023 Consent for Procedure/Surgery [id number] 7#1.00CD:127 [facility] Consent for Procedure/Surger yon 01-13-2023 Consent for Procedure/Surgery [id number] 1#1.00CD:127 Normal [facility] General Surgery Office/Clini c Noteon [...] the procedure. 2. On apixaban therapy (Z79.01: prison (current) use of anticoagulants) 3. BMI 33.0-33.9,adult (Z68.33: Body mass index [BMI] 33.0-33.9, adult) ATTESTATION: Documentation services were performed after patient or guardian consented to allow [employer] to record this visit. SILVER bioinformatics support specialist and provider reviewed before signing. SILVER: [...] mg oral tablet fluticasone 0.05 mg/inh Nasal [place], 2 spray(s), Nasal, Daily furosemide 40 mg [...] - Denies (more content not included)... Normal [facility] Comment on above: Result Comment: Elec [...] ovarian syndrome (PCOS). ? Binge-eating disorder. ? Hickman syndrome. ? Taking certain medicines, such as [...] food choices, such as grocery stores and [employer]. What are the signs or symptoms? The [...] 0?1 drink (more content not included)... Normal [facility] Coding Summary.on 01-09-2023 Coding Summary. CD:[id number] Ww+PGhlYWQ+RH6PFIAnP 43pbSQqqG1oY8TAZBvBE ywgQVBQTElOSyIgbmFtZ K9emQWuCDJl IC8+XD3gSVFpFzhgdMNy t4X6tUZ5N96ghx9aQOmp uDH5NNNbFsZothoib5yh hNi5JGdqZamaNiCl WXOdvG80TQG5cV71Kj00 yOTxnVWxg9rbjUf8FoZf YVGdGPV3iTtzPLssp9Nz GEPdC92quAMmh0B0 IGNvbGxhcHNlOyBlbXB0 qK2iXVozaeumm0psqovm Swl1rl06uZChk8B5jKG3 T3PbadV6ASWaxUUg QbmfkFXBtH8bsgvlz8pu raknAqScPELrDWq6TTm1 DFIkbZjhFnEmOF01FIC2 QCJgmhEzS4YcBIOn yMnkIpG7k4I0Qd2JK9IA PpycN5LEYPDVDWkkrYZ+ LW62pa00M4JkRszaEby8 EMIxDXX8ySD6hJ0u WKDgJAdmi3E3tRL9O9Zc hkUbol9wz2loCMJuZYnp N40zwNVfu8L8IDUoxSS5 DKUncOptExOczO26 Oyc+TMTpsUiqi5DwAolu o6hyi6nbbOb8QlbbRVPg ziNgoInwGPA8t8FlEy1x LBEktAH5kTX7yE6c SoEhWrP3FAewX714UlSm bHMfDjvvY11yR2FilCX+ VMWxTgp9PSNpqUhaSL5m O7DiBKCttristJHy zCcbPR8fZFOqzuixKPMr cF9yQYSvC2m2VzYwOrT8 HJaqY0InJHSxvgmdSy71 jV5wZeWlMzJ8KExj W6XmbuT3IGBusXNdIPld ABL2H52hv8H3CAMyGXXh EXH3dVA5uG4obIsaghdx bGVmdDsgdmVydGlj HBqzYQbvX776NVThvFxd PkNvZGluZyBEYXRlOiAg MDQvMDEvMjAyMzwvdGQ+ XDMrTGJ3aLyjRECe mCZlVYkyCv8jkYaidQmm IW8xHNWjqfflZPMvgG5u LMRtoNQjbJbhDB1mINKf hxjkj914DkLtICV3 NGFzyBUfV3YchY7qCbSv ILGuMJNhD8JswEOdWHak K661JWgjLmM1KFXhecFr Q2NxVJQbiFhhSrK0 o9X7Pc4Ts1FhsgqnI6Bh lNWrBoTiKwbqJKb0T2Kc PjwvdHI+UR69OPSpBX84 ZHq4QPY4kVqcALej VAKmE0IczI3cMzAjKVWo ZGRkOyc+PHRhYmxlIHdp ZHRoPScxMDAlJyBzdHls YZ8dVu5eTKRaMVWu tPhlfQAjNpRxq9ioFDWi IGprFO5plYvaQ0OnkFK3 YZBrn9n0Ox76K41yG3Yz dXA+HKFdoKQ8mLS2 tM2jHsGoWvV8DOnfX704 DxByoLLiWtelz4ggp3dz xUc8SkG7MOSoxhJtpStb DVB8i2XrBx96S42u IHdpZHRoPSIxNSUiIHZh hBabeb6rxB8yLv2+PGNv yPS6aBK4xJ7eXdZeHpP3 XMbtE792ViFgtHAp Nqces0vfv5xzeVd5KgMj NZAsutTyzDuhXUR9m6Hp Kl39A8DjlIrum7BbWnv9 kv71eJXqq7L2gBP2 Q0UwMWYxjahmgHEaxZnc VH6jBYNosgnbNCRqeN9w LRSiX0r2XmAnJmI0UKiv U8KmlkK4PHPibRPu ZCGjjAHUwE5nopffa3oz rlhtOrXeMXVsMMz3NWy0 OEOzgKcxIpVfGNQ9OnU0 TRH1qNToiY0xrTwb wsszkL0mNda+GXM2lUZu oYOCBQ3eVpaaeGI+PHRk ZSV9gTjgCHwtYXYpmB6d VGXtU5b7DwTcEvC5 LDppA6IbyyQ8SFYtqQLt LOJwcUIZxU6qzgwqp4zu surjHnEmDXIxDGg4SAb6 LWFsaWduOiBsZWZ0 BxF8ULI6hPZkoR9uhElp xsrmlN0gAmy+QmlydGgg PSR8UPp5N2KwTza4HFCh ySjjNB2oyKSlHFcx Au5jqLhttSybNM1sUXAb dfrel040XbJzm2enHHXg qUIjVJooCZO9M76cf7W8 XXVaDQImMCH8aZL6 hY0pjXsyliixzHPyhCms mqYpsDuxHPxuZPgvY351 VXGurPgnKgHcBSn6N7Dn Xxi4YVYwuEqhXF9r mNSuBXerYp6skMnlkKfj ON2rEGAyotqkp201DdYv s5kxDYKzoODeXQgpICD3 A80ry0U2EXJtXOJa RFQ5oVW3nY0igIaojpfr bGVmdDsgdmVydGljYWwt EFfbT332ZUOpdTmjYeBy uBp4V6XbFjy2LLKs vLocYT1dtIKkYPnbAc5t jCmfnAxuUQ4pACBykans w125YxPce2btJXJeeOPm ZSkaYXT7A08jf0X7 YIMeVAKkPIS1qIE9zB6z bGlnbjogbGVmdDsgdmVy pXdiBEhlVNtzH568UTZb cDsnPlBhdGllbnQg LBbsTOw7I3LrPzzqtXT+ HH05UPHeVR66zSOpyDMg b8cnlCa5IwBfULGuOEW0 wHazUFxdm5ZxHZYy X82xyIAor9C0WKUavFpk oWCfCjRnuNT6mK0eTJsg vruyb0mgrwipLqvpq6kq fb72eW95Z35vXWva ZHRoPSIzMCUiIHZhbGln pz7qgZ5uSx6+PGNvbCB3 gSD1fM9fUDOkFlW9CYwr J039EhTvaTAlDdvq v9ske3ukyYv6XaT5XLZp mxJfaVdwNGX7m3MzUc97 L57iUEgoDAAxTCCrTPOk NFMjrZodbb8ecX7k Ii8+EQTnbJO2sFY0wO3j CgEnXyA6SKjwF866JzIh uOFcYafqF24pU6JitOE+ RCPvEof6OREgcVrc RI8xjXYnAPerMc4mZPH8 PyCoFhLrQTigH1VsRGFy fywawpemwVV5XCHpBCHq uA57Dd9vdXalXTQb uHIXcF8ybhrsd0ttvhkw QzDfSMMbVEl1QPh6YQTo mRvaBmCjVJB7EdR7NQM6 sXOhkH8fiCbhnbds bI1rP4EjPZUghqgwIt47 uL3yAhEqPzH5TXtvIdq+ F46ZBZsQZUQZEKMXKPBR MVX3H5PjJpx5IHYv bLslCW4zgOWgBTbkKn7x kFxayIdzDV6wVUXyphha NZSswX0gXARjiFBkaQas DQ6eRIAlkgaul779 QdYgDWQ2IVFhzAMoL8Nv aJ8uOxWiAIXyUFScK1Kn qIKiXLfkN924DVagGnL0 PEAubaTnI3PoXRQt zFsdGcD3l9G1Wi3aDH8z Vj8mJMRnJZ12JH39tHWm e9H2xTN4F0YeKCVwdxpz fwlnnLC0TNGaVEHg jK34yLTbJBvuRc0oh5I2 e564QZVbQQEdcG95Za1r wDloZJUsrXHDwZ5xigwc j3czwjliHqWwLVBl HQu0KEb1LVZhsZhdEfPx OMC3MoW1ANJ4gIAglI5o zKqopbjnmO6tXzu+ODAg PLPjgdW3M3RhZzf5 RSDvfQkqRX3llMAgIMbb Cj0nvIlecUayJI7dAMFg dasmNFLlnY2sFXHbeIUp uLcnBF4nBMNsvdjm h390BhSxGQY7XKDwjTQs L9QxsA3wEeKbAYBbGZPa E0TlcFPcPSzsE390ETka AtN8SPTtaaKbN5Cf KOHatXmjPzY6k4C4Sh2V NH5bgWM5Q8PzNac6VDGh kWiqIR9nyXGtONtjSd3u pWroyTfjCQ3kXLQr peinRJMooY7bGUIogVAq tLcnPF1lKDPsmumkg551 NqDwXLM2ZDQihNQmT3Ec cO3aQrNfEEBvMAYq C6QmzOElRPlvD867XDhu NkS6MHJxheJoK2EvFRHu aPkdScZ1n4X7Nt4TFHWo VYNozMYoWzW4K4Gl PjwvdHI+YQ58ONPrCI10 hULizEPzs0nhvDi0BgZu NNAuXZJ7eAzrQMaku1Pb IGAhC17xaUVgw5E1 IGNvbGxhcHNlOyBlbXB0 gJ2fHKvehrfic0tuufan Pzjej0gjgi01zW73F29z IHdpZHRoPSIzMCUi BOFgfCwhjb4zeK0vUf1+ KRZhbRP6oDJ5gC9nHfBt EpK4YPkbT983NiVreBAi Aomot5nwh9lsqMs3 IjIwJSIgdmFsaWduPSJ0 q4PiUe75U04yFOfrKRFj RXLcGQTnLBNxbZhkop7q hW7pVt7+CS0ct9aj vp29uG77uBL+PHRkIHN0 gFgpVUkdWLIyeP0hSQcm OsT5GVQmBlVxhP14lQIr FNeuGt8wmIvazKbr IF8sDAGqztlgt778GkDz f3opESOyjKBxVZizCCY7 P74af7H7ZQKfKXVzAFS8 yKZ9pJ9czVmgglga bGVmdDsgdmVydGljYWwt IEttG444AYSsmEkbHeCj sIHrZ0hhjnZVLU7fAwvx dGQ+ILTiNYU1cLbf ERetQPZfjF7yIEUnD4t5 AbHdEfQ0JPcuO9UirtY0 XIZjxOYpOERvmTJOgT2t sadnh1rjmjciGvBz CPIiHMk4IKr2GVDiwHno YmWwPNA6OeT3SDY8xUSy iC1ltHsgazazzB7iEva+ RklOOjwvdGQ+PHRk GXX7kLdiOPtgZDUscB7y VYVxC1i7ZtHfZmJ0BLre H9KvjaQ0RAInzTZyAKMf jWEZmH1glanpc6sy rqqpRbCmRDZrIMp0XFh7 KCFkcDlhRsGoSIL2UlD1 VTR0zOYjvM3ybFycvhim pL0tIzz+TVJOOjwv dGQ+EROvVNF1lZoeGRei YPGagK2cUALcP2v2VmIx SeV8ULmbS3ZngyJ5KOXd rJIlRXLweFLFdP3o xbjoo6fvmxjvQbQaUMXj ADv6ISw3YORzjJdmGtRn HMI4UvH7YPF2dMZyjB6f pFblbvxsjE2tKwa+ JOP4KIS6NE38LG40J5Si PjwvdGFibGU+PHRhYmxl IHdpZHRoPScxMDAlJyBz fPxgML5kQg7nYGDe LWNvbGxh (more content not included)... 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 female here for mass on left breast Patient presented to [facility] on 12/28/22 with mass on left [...] breast cancer with a lumpectomy performed at [facility] performed 25 years ago. The patient [...] evaluation and attempt to obtain records from [facility]. 2. (more content not included)... Normal [facility] Comment on above: Result Comment: Elec tronically Signed By: Patricia GUILLEN, Paul Walker\.br\Date and Time Signed: 01/04/23 14:16 EDT\.br\Electronically Co-Signed By: Alaina Calixto\.br\Date and Time Co-Signed: 01/04/23 12:09 EDT Coding Summary.on 12-30-2022 Coding Summary. CD:[id number] Ww+PGhlYWQ+HY7YPYUfW 70wfLWamP7gW2UNLCrVR ywgQVBQTElOSyIgbmFtZ Q4zpEGnVWWe IC8+MU0aNVYrOivrhYUu w8H2yJB7V54roz3qIGkf oBM7WTKgChGuucdvt9mz yTu9IMjpTjjoEvDm UAVguC67LDP3xI71Eo26 iJCxqBFtr3dzvKt4FjEj UYTpLAS6tOujCHlzh0Ff UKJdV02vwQGsp9T7 IGNvbGxhcHNlOyBlbXB0 tE0gNMzrmhtks8uuexlg Rei3km50xTEng8R8iPT9 P2LtreE6CZHbgMWy KzdjcMMCgX0teiqeu3la okbuFnHkLKCrXKp2AEr5 ICNccLmdDjFiUE08JBC3 SNPcruSpX0JlLXFb wMnvOjA3r6N9Bh3IM3PH VrjjB4WUKGSRGCtgdEI+ NI55hl61B1CaEfpoWra6 QKItQNP0yOP2gE1p RIXwETnvf5E2iUV5S4Lb pgKmru1wi7teTOSgYIan O12pnQBnx4P3GPEgfDS5 ONKfjNniDjTqxR56 Oyc+EWAdoIydt7PiRddn r3ecl3ksqQe5LwltQFUq cdGrlFvmVSS5d3OnUg8y WWCqxBV6aGQ7uL4l ItZkGgR0OUnrD725WjFi tUHvLeboJ81mP0FptKC+ TASnRju6LGXzkBevIC4y A1ImLZBqmwtvvWRq aYcyRT6uNSCxulvbMDLm vR9qQVNaO6u8CnThUxI0 LUahU4MsUFJlduacBk44 dH2aWxHzSiF8VXoj M5AhzkX8IOCwvXFhPLwl XCF9R55af3Y8RRTqVTPt JCE0jQC4bA6shPzzmqza bGVmdDsgdmVydGlj HXijMQfrI102PZJreOwj PkNvZGluZyBEYXRlOiAg MDMvMjIvMjAyMzwvdGQ+ UGIxOKH1fMmuDIAh cJMxLUssXf1sxBckwDpo YB6kZIAmbbnqFPFdlL2i TGFmbSWkrUjvPK8wZMYq zhjfb437QcQbEGH3 YFUohWUpC3FlgP9sVnOc JRJuHWXeZ6FblJQlWCki Z153CNduXwZ8FWJrdoYu C9CiXWCizMebJmH3 q3P6Ke9Qv2JjnoqfX3Ar kYLaNnNhUduwOBt5M9Bh PjwvdHI+MM61EXAjAG44 LSh0MIA5mAujGTph RPUuE0RjjU6vTiSgQSZz ZGRkOyc+PHRhYmxlIHdp ZHRoPScxMDAlJyBzdHls PB9bHc0jZGMvFBVi rBcdpVYmEmQvq1ueREAi RFniBG3haFzjE3EzoQV5 FZQtp1w1La83T24lI7Jh dXA+UDQzuLJ9nYJ4 wI8uRqOlDiV9RYzjD854 JaXatNMwDrzuj5gmo6hk wEb0ZnY2BPXsllCxkWjq ZDU1s9GfZu93T53d IHdpZHRoPSIxNSUiIHZh zInvsj7ybS4cBb5+PGNv wXD8lMN1mH9xYkCiMoX7 YKxyM638UyNwnKUb Yqnug3yrj9kmvMr1UiJb JNAtrnWcdWqeACI0b6Yw Yq27C2RcrFpsg5MnDay3 pp81uIUyp8Y6uJN7 M3ItGASktpqvnDMhfKhg TO9dWRAshhxnNBWreF6z KNPzD4a0HsFdBdU9MEhc C7LuvgD2VPNjuKSu RCDwsBCOhF1qbanlt1dj unzaRbIfLGXyMLo0VXy3 NJIatMvfSaWmYQK9ZcV4 HGI7oUWqgO3gvSba kvmdrZ2sNut+RRG0iCYx lUMHTK9uCkzfbNV+PHRk YQN4pMuaKOczFNHhvT5e WTUuL9u9NvJoIdB2 EHjtF6XngeX0TVFieIVv JTYnzKXIwU0jvosvv7kc ywvjXwJcSZMjVLb4JXb9 LWFsaWduOiBsZWZ0 IeJ9WAS0sANabX0nkMer wfzmaM4fLtg+QmlydGgg EHS7ROg6K2GnHea7KUXp jTcwFO2ccTBbILdi Sw8waYoiyZgiEC0vFUUy gqmxb811WvJht5erOJPs rUPpOUaaDGE4N83cr8W1 CQYgONLiNPV2sPA8 lD7fbBmhaufncGXioXcy ydDeaNfpLSzoSElfZ061 OOLlyVreAtKeBTa9J4Wp Rmr0GXPvyOppZK9t dQZiXZdtKp3hjOdqaYiy AZ9bTAMapqywq908XyEa y6hbPWSyfSJjTAwpYYK8 Z71rt2B9BXGqICIl ZLN7mZA6eY8ifKexpcpx bGVmdDsgdmVydGljYWwt QSanA249JUWacNdyQyHv nCl4I5YrMqh2YPGg oFrcXM9paUTyBVnzAo4u gPhudQvvKA4nMJUbrkzx t653JrIpw5fnBAHyuMIb WSqqKWS2X21vp4K7 ZPVeILIxRNQ0cAN5mN4y bGlnbjogbGVmdDsgdmVy jRuqEWswSRmtU761CBAf cDsnPlBhdGllbnQg MJbqOUs3P2ZqSpoacPF+ MJ14SSPuEA46jUZorDNx d0vnzXb9XnYkHWLlFVW3 hDqrSXyyo2JsLTAq T85beWHwv4B8JFOqzNza oCOoEmSeiJT4xW3hNUay nruqd0exvufvWynjm6df wu05aI57B86mESjw ZHRoPSIzMCUiIHZhbGln ix9ggJ5uMp2+PGNvbCB3 nKO3qG9kCYUtVzK7NGbm Y375XpDysZPqEnko a3rwz2zaqIf2AqP3LSZq rxKkkWokICG3a0FtVs22 O27eYFwlQKBqQUJtYJLn UINkzIxayc1zsL9p Ii8+MPUfsWA0uOW9qX9e TdNvTwA3UVthV936PrDi hOHeRbnvH29sX7RmkTG+ HAAyNlm7JFJzuMah QN0gySQtIHccXq2eKFD9 JnWvNcNxGXtvL1ZlOHCy ptwitxgoeAA1ZAWaDQQp iB72Vb7ppErvLATy cCUFeG3vhlfvp9auroxj ApNxFKAqTWb5KDz6YRZp rHvdXqDcFMO8IcV7XKR4 kILetP4ghTomdcgv lL6jH7MfHZWcxetsYl01 iL4iFrIyJzJ7GUglVpn+ B48BZNaRWWCEDUMUHRTS YVS8J8IlAdz8QORt lCtwYD1vhEIkSAovOv1j bVvokMvmUK3pVRKtegcj CSJvuA2jONHqpFAqhCsa SE7wABSvozdzj195 UwMyRVY4JGDfoKIyE7Jw yR7wFpKvMBFdZPUpL7Kh qLClKTsbF778BIicVkQ3 OSOaxyDmO3CrWVPa eRzsVzZ7x7Y0Wc7mUE3t Hb9aQFTpHO50IJ58wLGy e7Q9uER4N5GdAQPfpksy iadsjKC1VQIxRZWp iY10kDFyGRwzZk4mt4C5 k386MPEhFLMqvR93Bs5l yUpcYTIhfJFJwD1frtth s3jrlvrvFkCcOEWm FSk0VHe9APZsoSgeLdXc YAF1NpT8BYG3xRRvnJ0x rLhpqzunzG2yFat+ODAg MZVvweA3M5RbZol6 ZMDvwFejVU6qhNWaRNlf Yd2lsLufcLilZH5jCLPf jzuaHFJnpP1yJGEohASy cYckNX3yINUiwpgx j835SfYyDDG7ZVFnzMZa Z6JgjQ1aVcIzQLIpDHYl U8AwtQFvZLxvH802MJqn ClW8OXKxlxYxU3Zp OUVkqKruBbE9a4H6Lc8A UA1qfQV6E1VdZeq8UQLn tDgtDO1waEIqZXltRf7c cRpujXfzRC0oLWQz acqiDEAiiP2oREBvsUCi fKowCO1uTVEpvtoyt898 GrHlZYV7BOIyeDKsJ8Ue uA1sNdHmLAOnMBPd F7GbsYLcNPjkH686TIcf JnZ9TUMfnjXmM8AvVJZs rGmlIfP5l4V1Sr9RrBTu N7SzD6p7M9GlOckq dHI+FB81JJAsXA90qEDu gQQvg8fsdHj9HsHnIGOo ZVB7rPerBZxtc3XaMPCh X01szLDjy7D8AAFd fKmexOCfXrLddEL0lI7d ARcrjideo5ybyrnsYmwe p4gvja43qH12O85zYXls ZHRoPSIzMCUiIHZh pMpbbp5glQ3gLt8+PGNv nHX2kZY5lH5jSfJaWlV1 JHpgU187LdFpiRSxEywd f7zim0edbFb4YhXs ZYLxxtUdtYyrVAS8i0Ur Vh21K50uIHneSJWhLGSy EIOjNIEjePluvc3lvL7i Ii8+IG9za4atcz46 qU70aGL+DECyZAV0wDcl FJoyLVYmqQ4qRUeuSdM5 AQYyWzUohW36rIKmAKer Pm5cdVmpiRznBL8i UJQnqhkep009MyCyy4vu TVEmiTQwFXcoVXO5G73x l1F5PPHhHOFwBTM5kCF0 mM5hpTsglrzqsHRw dDsgdmVydGljYWwtYWxp Z159EILutZnjXfSwgCCx S4inotOKXL3mJekglUS+ KCVbAXL0pEreRBeg MDBkjO2vMFEoO1t2XyLp MxG4YWxjA3WvhdN8HOCb fUKxMULghRPNuI5zfeoe t2cpaxkhDnUnJEEi IXx9QCo0HUDrsPrbBaYe VFO4ZzT8WEC4pBVvkD3h fMhgbebpnC2hKoi+RklO OjwvdGQ+PHRkIHN0 wIsaXRamSPHxoG4sHXUm E8t6XnJqZjM8DGkgN5Tu waQ0OPBjyHPyBJNbuPCV kP2uppafa7bygsuh JuYlAMXqZLk3PFr7BBCe bUkqRvCyZMA6VnH6QEF1 oFHknN3opWnwdvpjmL9i Oyc+TVJOOjwvdGQ+ SKYoZLD5cZppGXctWJUb fA9xWTZsJ8k7IrSyEfG7 ECsqR2MevtH8OWFfaQKg QUNymTDVgB5lftel t3lzjmcaGfZmABAlLMq8 ZQy0JYPyoSugDwCbOEV3 QtA4APO4mMZfiW4zkQdr mgmusO6dCvt+UGF5 OMA7OZ01SB95D9ZyAlxd dGFibGU+PHRhYmxlIHdp ZHRoPScxMDAlJyBzdHls YS7iQp9uNYMdWRTn bGxhcHNl (more content not included)... Normal [facility] ED Note-Physicianon 12-30-19 ED Note-Physician Basic [...] and Complexity of Problems Differential Diagnosis: [] [facility] Data External documents reviewed: Not applicable [...] QID, # 40 cap(s), Refills(s) 0, Pharmacy: [facility], 146, cm, 12/28/22 16:31:00 EDT, Height/Length Dosing, 69, kg, 12/28/22 16:31:00 EDT, Weight Dosing Disposition Plan Patient Discharge Condition Stable Discharge Disposition To home Discharge Prescription List Prescriptions cephalexin 500 mg Cap, 500 mg= 1 cap(s), Oral, QID Follow-up With When Contact Information Dae LANDAVERDE In 3 days 12/31/2022 EDT [address], [address] [facility] 3 [place] [address]- Business (1) Additional Instructions: Follow-up for evaluation and treatment of breast abscess JAVIER MARY In [address], [address] [place] [address]- Business (1) Additional Instructions: Patient Education Skin Abscess Attestation Patient seen and evaluated by the physician student assistant. Attending physician was present in the emergency department and supervised care. This visit was performed by both the physician and an APC. I performed all aspects of the MDM as documented. This report was transcribed using voice recognition software. Every effort was made to ensure accuracy, however, inadvertently computerized high school science tutor mistakes may be present. Appropriate healthcare PPE [...] inpatient medica (more content not included)... Normal [facility] Comment on above: Result Comment: Elec tronically Signed By: Rhys Chowdhury PA-C\.br\Date and Time Signed: 12/28/22 16:48 EDT\.br\Electronically Co-Signed By: Paul Teixeira DO\.br\Date and Time Co-Signed: 12/29/22 07:13 EDT Consent for Treatmenton 12-10 Consent for Treatment [id number] #1.00CD:127 Normal [facility] Discharge Instructionson Discharge Instructions [id number] 3#1.00CD:127 Normal [facility] ED Clinical Summaryon 2022 ED Clinical Summary [place] [id number] ED Clinical Summary Person Information Name: DARWIN HEART/[facility]_Nadeem Age: 82 Years : 1940 Sex: Female Language: Chilean PCP: JAVIER MARY DO Marital Status: Phone: [phone] Visit Id: Visit Reason: Abscess - simple; [...] 12/28/2022 16:50:39 12/28/2022 16:50:39 12/28/2022 16:50:39 ADDRESS: [address] [place] [address] [address] [place] [id number] [facility] DOC NOTES: MEDICAL INFORMATION: Prescriptions Given: Medications to Continue Taking That Have Changed [facility], [address] [facility] [place] [id number], [phone] START: cephalexin (cephalexin 500 mg Cap) 1 [...] meals). fluticasone nasal (fluticasone 0.05 mg/inh Nasal [place]) 2 Sprays Nasal Inhalation every day. furosemide [...] Follow up: With: Address: When: Dae LANDAVERDE [address] [place], [place] [address]dict [place]ajal, [facility] [address], [facility] [address] [place] [address] [facility] (1) In 3 days 12/31/2022 Comments: Follow-up for evaluation and treatment of breast abscess With: Address: When: JAVIER MARY [address] [facility] [address] [place] [address] [facility] (1) In 3 days DIAGNOSIS: Breast abscess Normal [facility] ED Patient Education Noteon 12-28-2022 ED [...] these instructions at home: Medicines ? Take knbv-osq-yoaskml and prescription medicines only as told by [...] and water are not available, use hand educational technology specialist. ? Check your abscess every day for [...] Document Izzy (more content not included)... Normal [facility] ED Patient Summaryon 023 ED Patient Summary [address] [address] Patient Discharge Instructions Person Information Name: DARWIN HEART Age: 82 Years Arrival Date: 12/28/2022 16:22:27 Discharge Diagnosis: Breast abscess Primary Care Physician: JAVIER MARY DO Provider Information Primary Provider: Paul Teixeira DO Advanced Monotype Setter:Rhys Chowdhury PA-C The exam and treatment you received in the Emergency Department were for an urgent problem and are not intended as complete care. It is important that you follow up with a doctor, nurse practitioner, or physician?s student assistant for ongoing care. If your symptoms [...] Address: When: Dae LANDAVERDE [address], [facility] [address], [facility] 3 [place] [address] Business (1) In 3 days 12/31/2022 Comments: Follow-up for evaluation and treatment of breast abscess With: Address: When: JAVIER MARY [address] [place] [address] 2 [place] [address] Business (1) In 3 days In the event that this physician does not participate in your insurance network, please consult with your insurance company to find a nearby participating provider. Patient Education Materials: Skin Abscess A MESSAGE TO ALL PATIENTS REGARDING OPIOIDS PRESCRIPTION OPIOIDS: WHAT YOU NEED TO KNOW Prescription opioids can be used to help relieve crjabcib-kd-cxsbso pain and are often prescribed following a [...] and overdos (more content not included)... Normal [facility] ED Note-Physicianon 12-12-19 ED Note-Physician Basic [...] MARY In 3 days 12/08/2022 EST [address] [facility] [place] [address]- Business (1) Additional Instructions: Patient Education Venous Thromboembolism Prevention Deep Vein Thrombosis Simms Cyst Contusion, Fjmw-na-Hron Bleeding Varicose Veins Attestation Patien (more content not included)... Normal [facility] Comment on above: Result Comment: Elec tronically Signed By: Nichole Petit PA-C\.br\Date and Time Signed: 12/05/22 11:57 EST\.br\Electronically Co-Signed By: Bruno Dowell MD\.br\Date and Time Co-Signed: 12/11/22 17:54 EST Coding Summary.on 12-07-2022 Coding Summary. [id number] Gh0bWw+PGhlYWQ+PE1FV EWoC14aqFPgmK3HY5jYC D3MKROTFJOWDY7QPC7de WW4WQdiV7HydtGq PwnssYNsMA03EDd3CBV2 sKukFVbavB7ygXPiO2y3 DrDtYI25xT90TRzlUCOe LvO6DdNeusiolXKb F4wlSmGmzCKcSbd+PHRh YmxlIHdpZHRoPScxMDAl ViCbwNosDO2xNm0aMQBr LWNvbGxhcHNlOiBj g6stNUNvIUyyUD4uvLoh P3TucDF3YAIqp2w1Hm51 dHI+YMTwXEC6oDplOOqs r961ZwErf4kwAXA5 kAVzNFimPXH9H35qd0S1 SWXaBBNrVYO6kEV1uN6w zUajtdcyU2HanMWsAaY0 LJY2xUVjeS9cdThy czxzsN3wXta+W55JPS6A XREEKG7MRgr2G4LyImvd dHI+KU59PZJnQZ06aSZr mMXlj0qydQc3QuQq RJSzHGO1tTudMDezw7Uf XLZzG73djKDdb6S6ZJZt uPcsqKVkNvNkmFC4tH4p JKagoxveb1xsxsut Wwmal8kchz06lN24K39b ONhyOQCiFHR7DNSvNMZt uVgfcd1ziE7tSd5+IDxj u8djt2jbaWu9YtUn SBVvuyVxgYubVXI1b2Je Ci97C4LztZbbz4VtXjz0 ix68pASkw7M9nPC2DTxe ANMyjO8iJGlnCdG8 PTKfUpNrxZ74mADgEPzc Vl8wtTxpqTreDJ3uHKNs oxfzQDReoH9iBASyzCQe eSbjGK2rBSHvlxef h444JdTmXXY5TVNdlHGd E1SbwA6rZwBrPMRbCUUt E1CotMXjWDwqL881EZza AjU8FJOyftRjJ9Np KKLteMhkFhF4q5F7Zw4E j9CjhyhxKUS5OIvmMYHx HhL7YgToCgU8J0IeQmc0 NTTefTaqSK3qY3Xe RDXpxtiyrmmmlYS5ZGWb MCAvfD98rQXnQUrwKm9h s6P9n958UXZuSWYuvQ67 Iz2lfBisVGNhjPIX mV8eqkjfo3qyurseMoHb FSUmNDv8ALd6ROIkcCmv SfYzIJK3XbI9EXH0pZAt fC5tbPlsrjxbkQ9r Oyc+Y78nzB1bSTC0GZM3 hoduXBCxxwSuVW90TF26 Y0AoFhjpyNPwbCG+PGRp eeLmmDzrNP8sWrBe x3uoq9AkBAbmE8XlWIVh RZlsAkt5HCUrLCW4pAX0 pE4zZOGpTKxrb0F6kNA2 S8ExnfXfzf3sb5vm QWTnVCvgS83ajMGhh7W9 UDTqcKH6KXVqpNxgXdYj mW83Qwn+JUTqfOtkh3Id Njful4wqy8ojdTr1 IjMwJSIgdmFsaWduPSJ0 p6UdXa57H23lNVejIDIj JVLgJDBqAFYxpCdsdi6c vN0qJp6+PGNvbCB3 vTC5cH2rSAQvRrL3URhk X557MyApqHNqBawnw9mb g7zsyVp4YdJiNUYlfgPd xDpfBYU5j6GjLz95 V16mMTpfBLRcUTLcDQVq CVWpzDdaga1rrR4bLk8+ CS0kb8byzy94rC16uLG+ IZPnYJQ9yFrcTXlg MVBdoW3zSNrnXaD0BQTf RxMerU53vNFlWWjuUi3h tDxzgJvwPK3nLHKcdegy y412MsEje8tsKBRz zUGeGQdbZVS5A00mv0E8 QFSxSVQdKNM1sAW6pU2c bGlnbjogbGVmdDsgdmVy hQjbJTziXDlsA896 IHRvcDsnPlBhdGllbnQg PpLeWDz1G5FlZul3HGZk uOxwQJ7ckMWkLKluEa2z rHztrWklJA6fJGHk mmcgb176RuTdq6jhYADi iXNlGOteOOI8K73xw5U5 ZJTiQCUyHYG9nAR2jU4o bGlnbjogbGVmdDsg blGtfSynOWxkCFzjM356 IHRvcDsnPkJpcnRoIERh nSJ8YG66EA27hQRyy5Z4 yHR8M1AwMEPulfgw qrodrBM7VHZrIBAjlQ86 Wt7rkGmbQh5lXXZvKEH7 QOQbyZAjT6HbiB2qDmUt GPWjIORjA5YoaNOe WZcpS977DNjrSpS3BRVf sxReS1PwBXYceIvvDkE4 t6A7Fb6SW0C3IS94VX64 oZYgz1E2bDR0B2Qt MNRinxqtjfdiuOS0VBGn GCBhsI19Zx2daPcuKw4v KCShNGR0KHZfxSYuF1Ct oK1vMpTeQUMcGTIe X1QqyHElBQjhN698FGjh DaX0GXTkafDuO6XhBRZm jMdzWsU0s7C3Qi1UIJe5 ND22HP30gPMyj6B6 dZK8B9TjZVCyehqvfvvx kOR1QUPnZRSluG89Tu9z pHwrXh8tCIUnBQF6AASa pKJwR2UbnA9cDgXp YMCbPXDuM3JreCDpPPqh Z440YMfwLoK6GDYrenIy P4WwQESbaOmfBoL0r3Q7 Bz2KDXQrKB92YNG1 vFP3RW93CF93Z5CzDoqn dGFibGU+PHRhYmxlIHdp ZHRoPScxMDAlJyBzdHls AO1pJn5mKDIwGYTi wMjjvJIoGnWar7jfCFLb TPmfTD7uxXypZ1DyxBF3 XGNgy6y8Fc46M26lZ8St dXA+DUAbgSP5uIC1 xC3uZbXgWqA3SIfnZ369 FxBseUOtZofyj5usb4xz sHk9UsU7BJLxuiXefBif IXW4t0BoJi15V06y IHdpZHRoPSIxNSUiIHZh vUfqwl0wkZ7wWk0+PGNv mOG9lZQ3dU3xGpMqRyW9 PXotM473YqFfhXRe Foxpp5ptz3fhrKn5IhDp VEWbqbJsiFqsFZX1y4Nu Jf15V2JsrYyos8TwMun5 tl54iCOzk0L2lXC4 L3SvBVJfvvfpqFMazVpd LV9gDWNekxpgUCSzdF5o VNIvA0d0VcTnXhE9VDwm Y8ZgbcH8NBSupROm VLrpWDM3T74pe9K3CGLs YFTmIOA9xNE1bR7kiXhz bjogbGVmdDsgdmVydGlj AMvtQQvtG966PQWa nYioHTMmmQ3jLNLyyBOg iWpgLI5yVGEugrhzQhgN VVBLRSwgQkFSQkFSQSBF SL23OW30uAZjq3H8 kRT1I1EfOUTfdozwdnsa vHR0NPQhUFIniJ59kTFj CNleIu8dc8D7x201INEk OCVdkX23Pj6juGcv ZVYifEJYgO9lnzjyr9kg bxifNjFdMFPhKQw3YUf7 ALKegGffZhSkAZB3XeS0 DVJ0kGIzcB6rcQgv opibdG9wLys+MDEvMjYv XLu6FjhbqFE+PHRkIHN0 fQieHFcrTEEwyW8dIZKi H3u3BqFxNaB4AEhi Q5ZxICIjtsabUc58wU1f GxVlLeF3YVhyW8KebhU4 NNClwCPlXRqtBEL1B08n q8W0JEQwAUKtYGY8 iVE9bO3fdLhgkqlkjNSd dDsgdmVydGljYWwtYWxp F204YSRqcKeoTlrdLJjl ZVMaUP64EJ03bZLh n4H3tHB7N2GkJZXnnepz xkcqvVL2AQYdTLVztZ04 nLAyGOuaIi6vo4F1x609 CGDhIOPjhL31Kj5w jCzxOYImkKORcF5zdpww y5oluqgxWpWfIBDoTOp2 CPa2AHDxrGqwSlQiUIW8 KgV2SDZ5oDNdwE4u iRjcxesvwQ1fIat+RmVt GOfiQF47WV16tHVec6T3 gKV6K0ObSGGazojftqze mGL2PLVeDWAwrI58 dHTyFMcyQy9jn6G7k782 MTFzVAKlvG03Pp7lmOzm MJKprLAGaK5swfphe5xj cjogIzAwMDAwMDt0 YSp6DRIwjCreLbFcHUV9 WwV7MDF0fEYqiN1pwHfi ivlwcW6qOqo+NS4ijjtl tqJ8OD79BB22S9Ir PjwvdGFibGU+PHRhYmxl IHdpZHRoPScxMDAlJyBz qBcgAI3cPv4qQUBkIJZr mIlbxLVeEqChp0kq LUMtLZdyNC1lvWtyT8Bu wHY6PUJad8t9Xd69K66f H2VamKW+SYLzyOL4vPU4 xO9nCbXvOaC2GOho J013JqSmrGWnKunzv2fh a0ayvTa5QiRiIIFjwkTw lRqtQOZ8u8OuZq43L30o IHdpZHRoPSIyMCUi EKUieIqwbm3bqW8nLg3+ WTTgkIP8tFS6pS4cApSn CoC0WPjyD064DoYjrBHs CbpkW37vT1ZxbWP+ NXWbRuz2SXQkoOmdXU1f yJAhJNyzSf8kSJJ8ElMz TgDdJKghF1UeSBVvkbbb vizebWC4JHLyESEu hZ16Jx0doUwfKj6yLQQz TDN9NIMyxVScG0XwdI5x FhMlOYJyHNEvL4HjxDZw YHzwX954JSbrPfO0 VPRukiRzJ1BnRSDftIyr OgE4y7U4Oy6SqElfsVWx VA3mSgVeSZi7E0CdPxj0 MEHzbZskPK4cjBGe TGxwHt5pdUmgwWdjCE1u NFBelwpvg014AeHmb3gj MXUnqCOoZTinIKB6C05r b6B4ROIwVCHcZPS3 cXV9cR2hrClhbybqmBFw dDsgdmVydGljYWwtYWxp B382QTFbkJtqVdBLQqt1 N1DmCuj7LEJhiGqo ZM7shEBrHHblAo1cgPog xVnzCJ5oUMGhvaazj953 RqRmm4pjLFYtfVSmLVja EUS7T01zu7A7FOHp JUIgBIR1yHN8sL2lzDlh bjogbGVmdDsgdmVydGlj NArsJTvvQ589ADOmpMwh Ec0VOay2N3XjIcl0 UQSbsFrlTF2bgNBlSDfq St2pwOlzjKsbEB7uPVMq hkpqd311HmUdg6izHHBq vLVxWOiiXLP2T14v y8K5CNCrCTOaQOK9pVY9 rC2rxHrduppfwFAjxEvj ydLdqGkiXFiwJMrrI781 IHRvcDsnPlBheWVy OjwvdGQ+OQ19hf98L7Ha LpvqRun1MCRcVUH4wTD9 kL3rHPXuVCjef2K9bSC3 H3ZzxrVahv6li6dd YXBz (more content not included)... Normal [facility] Consent for Treatmenton 11-12 Consent for Treatment [id number] #1.00CD:127 Normal [facility] Discharge Instructionson Discharge Instructions [id number] 1#1.00CD:127 [facility] ED Clinical Summaryon 2022 ED Clinical Summary [place] [id number] ED Clinical Summary Person Information Name: DARWIN HEART/[facility] Age: 82 Years : 1940 Sex: Female Language: Chilean PCP: JAVIER MARY DO Marital Status: Phone: [phone] Visit Id: Visit Reason: Lower leg pain-swelling; [...] 09:52:34 12/05/2022 09:52:34 ADDRESS: [address] [place] [id number] [facility] NOTES: MEDICAL INFORMATION: Prescriptions Given: [...] meals). fluticasone nasal (fluticasone 0.05 mg/inh Nasal [place]) 2 Sprays Nasal Inhalation every day. furosemide [...] Prevention; Deep Vein Thrombosis; Simms Cyst; Contusion, Wolb-kl-Necx; Bleeding Varicose Veins Follow up: With: Address: When: JAVIER MARY [address] [place] [address] Business (1) In 3 days 12/08/2022 DIAGNOSIS: 1:Contusion of left lower leg; 2:Varicose veins of lower limb Normal [facility] ED Patient Education Noteon 12-05-2022 ED [...] veins using minimally invasive surgery (subfascial endoscopic dairy technologist vein surgery). This method may be used in advanced cases. Follow these instructions at home: Medicines ? Take and use ohyy-msy-syoqkdq and prescription medicines and creams only as [...] ? Ch (more content not included)... Normal [facility] ED Patient Summaryon 023 ED Patient Summary [place] [id number] Patient Discharge Instructions Person Information Name: DARWIN HEART Age: 82 Years Arrival Date: 12/05/2022 09:12:17 Discharge Diagnosis: 1:Contusion of left lower leg; 2:Varicose veins of lower limb Primary Care Physician: JAVIER MARY DO Provider Information Primary Provider: Advanced Monotype Setter:None The exam and treatment you received in the Emergency Department were for an urgent problem and are not intended as complete care. It is important that you follow up with a doctor, nurse practitioner, or physician?s student assistant for ongoing care. If your symptoms [...] Follow-up Instructions: With: Address: When: JAVIER MARY [address] [place], [place] [id number] [facility] () In 3 days 12/08/2022 In the event that this physician does not participate in your insurance network, please consult with your insurance company to find a nearby participating provider. Patient Education Materials: Venous Thromboembolism Prevention; Deep Vein Thrombosis; Simms Cyst; Contusion, Meqq-wn-Uper; Bleeding Varicose Veins A MESSAGE TO ALL PATIENTS REGARDING OPIOIDS PRESCRIPTION OPIOIDS: WHAT YOU NEED TO KNOW Prescription opioids can be used to help relieve vrxqbzdg-kh-zaspvd pain and are often prescribed following a [...] care professio (more content not included)... [facility] Coding Summary.on 11-16-2022 Coding Summary. [id number] Gh0bWw+PGhlYWQ+PE1FV MNyB70xuBSppH6MH3aSG S9PCFIEJDCQEI7FMF9op DB7JTsjF8WbrwLj CmlnzZXfGR62MCh6DDQ9 kVouZJidkI6qqVEeH1l2 TtUwFR66zH44SUrhMDKv EgR3WwJpcwrimABi B4ozDtSrmNXjMny+PHRh YmxlIHdpZHRoPScxMDAl MoBamTmfEA2pFu4oMWHz LWNvbGxhcHNlOiBj j9paBYSiESrrBV9ghFgw E1RgaEZ0BNRer1z9Ka33 dHI+SPWgUGR1uBamKCyu v944DpKud8veNRC1 dULfKKgyGUH0X12ai3S3 YBSaFFGqYDQ8eHV5pY7s iDrqbkvyW2RgyIFqUjL8 FPX0yPAhfW1emJnb mtomgS8nSjl+T41XEG0L FNUMVL7JGqr7W6VsUlea dHI+RZ68OZPuOH94yJUj vZLco7bqwCh9QjXv IYHoQUX2uNqgNAfxa8Nf DUOjO91xrVOeq4F5YSCm tFamiZWfTkGbbAV6zL2j UZgmkwvnw6bhilek Sgsux3jhyg11sO50T80e DZlxOVYlYZV2CMAsOWDm hYndal3awQ0sNc0+IDxj z4yfh8wlaKk4KuBh WAWqdpOsrVbjNOD9y7Jy Nz00L7PltNfku6GlPlk0 qa76xVTmz5X6yWD5FQiv ALAqoC7eRCpkIiP4 DWLvFgDxdV18cTSiVXnu Fd0anHgtkTntSB7kTLEf yvbxTNUgdF3rWQLqiHEm eSrpFB0xGLVnzzxb g404KeCqTON6JUUxiUJd Y2VpoJ4eQuIfEFJnBFMo N2ChcOWsAKlfK910LDvt VbO8ZVBpngWgH6Fu HJJytAzsEvK6w4E2Nh2Z y4JeryvzJAY9SUxsVEXu RdU0DiIiNzN4L0BcSwi4 DHIpwKaiGL8dA4Cd OCZiqeuwygogdQA5SKEp PXUdmI74aCWsTPwcTi7w t0O2u351IWCrIFBerJ07 Gj4ciLmbPUIakGMC kU7xwmyld8istrltCrTs ZRNiORl4FMd1FNEksPwb DmWiHSM1AeH4HHX2lHWn rA3psVivtrizaT3k Oyc+F46siT9xTUV5RPX5 llmmXDNearHkCV74IX00 V3KzIjgooUVvgDB+PGRp ybInmJqbCW6oUuJr u3bdr2WgGJrgT8MvWGWi PHwjIfd1MQXxHIH3vUV1 wQ7vDDRfVXviz4P1sVI0 S6KmixYkiq3xg3vo JJSkWSucB77alBEkd0A3 YSMrjZD7GQJtvEylTaBq yH43Rjv+VKMixRfui0Zz Eoejt6bkk2nukMk0 IjMwJSIgdmFsaWduPSJ0 i3TvOi36Y99xRWwkUFUn GVEeEYKhDYVjdMsbfm0a xD5wCk9+PGNvbCB3 iPR4iY3tOOFgNvH0RPql P596WbEzqVHrMqstq2mk h5gyzKe9SyXeTTGjbuGg rQjuYGG6v1ArVj22 S28jSVevHIUmXOJqRSTn WFUptIdjuw6biR5gQk1+ DN2eo9dahh60rX87gZJ+ ZTHqTFM0uKxzMPur JCZaiY1jUPupLdJ3YOHi VcJxqR60eNVqQPflXl5y xJnslQutXZ4tIAHhmvhe c992PpQqt3xrRYOi vRJeKZqkZHD8L93tt8G0 VKQmUMBfTBW6rBZ5lE5x bGlnbjogbGVmdDsgdmVy sNutMAuuUFciM091 IHRvcDsnPlBhdGllbnQg VwHzNRi2Z1HmXug7XMAs jCclWY0pkNKmMYnoXh4j mIgjnNbiAQ0dABGc atgaf805DwCbv1tcDONw xNIvGAnnXTM1S76xj6M8 DAFoVPCbGLR1jYN0wT4h bGlnbjogbGVmdDsg zcKhmGqbOVphRZqwH570 IHRvcDsnPkJpcnRoIERh qFG4OU03RS11qBFpo5H3 nCZ1J3BpUOQddawk qqzqvNG7EIZnNUPaiJ51 Pp9lxMphWs6aQLAcVJK7 FHZiyXThJ3TtgJ3iSrAy NNHpYVJpJ3PbvLHz AVspH853KYcvZhU7IPYa tyViF0CwKXXuzCztPpI4 n1B3Wj8ZR5D8EZ82JK29 qDJtx8J6rDH2F0Ez GTQmbecpbinvlVM9DBQx PGNpfD43Xj2oaLepFm6p WOWxDYY4APFgjGClO8Cq xQ0dAcRsJXFuUNVn X5RmiUScVKmaP178DPjb YsK6PWNiqjMxL3MjNAOh ySqrPqH7p0Q8Dr3MBEj4 AJ67MP26uUOrs9Z1 dQY8D4UbKNMetdniccyy wLE6KGTwDVYyoN41Kb7i iBwgVr6oEXYhYWU5SOCp wMDfK8YmkH4mTgRd KGCkSAJoS3PpdHYhGPmc X700ZJfbAyS2HBReabIw E5EiTVXisFwoJqL9z9I1 Hi1LIWQaOV48BXW6 aYV7OH69AI69R8ReEgix dGFibGU+PHRhYmxlIHdp ZHRoPScxMDAlJyBzdHls KC4jKs0tMPSxQCJg jXtbmKZyRbBgq4qkTKOk XCljHW1ilAvzT6TprVR4 KIQja3b5Fm23T04xB3Zh dXA+UIGdqLU7xPA8 oR8xAvCaLbG2RAahA501 DwKlrHGwXjavi7tbb5vi lCx9BpJ8SXGiyyAxdTkj VXV4t0YdQw11Z29g IHdpZHRoPSIxNSUiIHZh pDrnun4ybI5xDr1+PGNv yFG9zPL1xY7zCfNzLtA4 SEeuL128UfHftDFf Xbtmn3cmr9booXn3YsJk GVUrthQmtXuzESX8a2Ha Bx41L5FroPkco7UiOqb9 iq94bLAld2B3dIG5 I9LmNSCciplfbBKltOzp UI9iMTSdryjdVLJmoF8b WJKiX2z7SsZlVnX2KUog D1QlsaA5HSFloOUp XEjjJFT3I20pb0M0XALm QRVsXET9uRE8gJ6kaOjp bjogbGVmdDsgdmVydGlj XViqSYlyB345XHMg uOxtCKKrrO7yXKDkqJQw qOnuCU5vZKTxcidmCqgQ VVBLRSwgQkFSQkFSQSBF HL52RD67tPBrm5I4 yRL1L5IfTPFzlbnceqqa sKH4DUCkVSDqlL63oUOs XQtwBq9op3A4g073UHTf LSYzkL10Ew4gtLmm GTRpmOMRpR5lzarrg9df kesrKvTnXAIcZQk7SRk4 FJCrzJfxPqKxIIW3OgP4 UPZ1fFBliU0xbUbw dlbvbG0pPcn+MDEvMjYv VJy6IkuevBS+PHRkIHN0 hBulFZroEFEopY3gIBLl T7o4SrOaZfG1XStq B3QdKYYuhzjmZz21uV7p LyPrDdY0KKpgP4WeruR2 QMTjbZMcEQwbDAV1L71r i7C1ULKcCEPySAA1 fFS6gZ6vlYznemdhsURu dDsgdmVydGljYWwtYWxp G801GFPtvBptDwmkWQpn RJZoMT48OC67kGOk q1L8oXF4K1JqFTSolzbk hmqdtMV1ZOLjXDBxbM00 zOVlTTcbYt3jg3Q7u871 VTZbLYQkeX08Me4r nNcdTOBbdXUWgR0gjkfh b5zeodlpSfQxXHFlDFg7 XTr4XGArwXozSnNxKRN4 RvQ3IPN4fDLplB4d yMqbahxjrC4lCmx+RmVt WRdvVY77MZ13jSMkl7N1 hPI6Z6DhRDXfnwpsnnet oOK8TWDxSVXmbF51 hXOhSUqbSb4ws3Y9l725 TBKwLMDzuW07Fd3paJxy HUSyqSVRoR9qzpyzp3lk cjogIzAwMDAwMDt0 MUg6QTBzgNjkUvBxGVK5 TaT6ZCN0pYTqsB7vaSiu trejkS7vSih+PK1ehfdo vmT2RI71AA99Y7Em PjwvdGFibGU+PHRhYmxl IHdpZHRoPScxMDAlJyBz wAkdMP2tPn1cIVDcULZg nLxkpBTcOdOlh7dy UMOxNCclEV8voDcsI5Nj kUC1MKSwz3a4Aj50B34q T8IutTX+KHZjqYT9oSE2 bB4hBlEzTtP8LCbx G943FgKauYRhFyije6zd d3qweVx5IuLuYVJaiuCu ySviNVK2s0XaOi74R66c IHdpZHRoPSIyMCUi TEYdaFjltm8stX5dKa4+ KVCpbFO3yNK0cH1tXhBt NiK8PYeoP731FyWcyMIk PrevE75gZ9DxyZZ+ ZXIsHof2BZOmaCjhDP3u hEXtQUkaQn6zHWQ4LsHp CiIwAUiyQ9KlTPOnoecy nqnrhOC0IVMeVSDs nR37Rg6zvObvPo0jQZAr WIL1TSAjyPSmI0QoaG8a RtQkTAKiLCIjR5VymFWb KFpmP694SAllDlV1 LBAamfKuV5LuEDAumJhr IpK7w8E1Kv6KvPbjfFQa TJ4aWdUaTPs4I1MtOpy8 UWFbaMnsLY7wxSLd XSiwLo7xqCkflFoeHM4l SPTtvcnix595PjMhw0hw CWAhrHDvKUzsFYW5Y53z l5A3ZTUuJVQaEAM4 fWD0nG2azBeohtymcSLm dDsgdmVydGljYWwtYWxp V025LPRexDjhCgMZSei4 J7XvFcv9UKXszWli XA0ayNWdPEuwAo3fpQll tYubWP5mHUZgadxgz953 EvGng4qmSYIdyXKrPNtf LHV9N73cu4B5RSWg WFOcEWH5lFC1qB0auJtz bjogbGVmdDsgdmVydGlj MYxaAJufW791MPLpwKdz Iy6UQch0B5OqVin8 EJXbtCdwZS0snXAlRCen Ku1rqSknvEyoMN4rHUPk uecxt489RrFjo2rgZCZh gZOhTAfuLGY1B54e s1S5GFSiFUSmJAO5tJY7 tM9ozGgpxontdCMupVlf yzWbyWabMJnkBWnaJ554 IHRvcDsnPlBheWVy OjwvdGQ+OZ59cr87C2Um GvyiBsk9PCTfKAD5oBZ4 pG4eWIHnJIvan8G0vUA6 W7NgcqCdcb3on8pg YXBz (more content not included)... Normal [facility] Consent for Treatmenton Consent for Treatment [id number] #1.00CD:127 Normal [facility] Discharge Instructionson Discharge Instructions [id number] #1.00CD:127 Normal [facility] ED Clinical Summaryon 2022 ED Clinical Summary [place] [id number] ED Clinical Summary Person Information Name: [facility] Alondra/[facility] Age: 82 Years : 1940 Sex: Female Language: Chilean PCP: JAVIER MARY DO Marital Status: Phone: [phone] Visit Id: Visit Reason: Hand pain-swelling; RIGHT [...] 11/12/2022 13:16:10 11/12/2022 13:16:10 AD[address]: [address] [facility] [place] [phone] PHYS DOC NOTES: MEDICAL INFORMATION: Prescriptions Given: Medications to Continue Taking That Have Changed [facility] [address], [place] [id number], [phone] START: cephalexin (Keflex 500 mg Cap) 1 [...] meals). fluticasone nasal (fluticasone 0.05 mg/inh Nasal [place]) 2 Sprays Nasal Inhalation every day. furosemide [...] Follow up: With: Address: When: JAVIER DRAPERGLES [address] [place], [place] [id number] Business (1) In 3 days 11/15/2022 DIAGNOSIS: Cellulitis; Wrist pain Normal [facility] ED Note-Physicianon 11-12-19 ED Note-Physician Basic [...] days, # 30 cap(s), Refills(s) 0, Pharmacy: [facility], 165, cm, 11/12/22 11:52:00 EST, [...] 3 days 11/15/2022 EST [address], [facility] [address] [place] [address]- [facility] (1) Additional Instructions: Patient Education Cellulitis, Adult Attestation Patient seen and evaluated by the physician student assistant. Attending physician was present in the emergency department and supervised care. This visit was performed by both the physician and an APC. I performed all aspects of the MDM as documented. This report was transcribed using voice recognition software. Every effort was made to ensure accuracy, however, inadvertently computerized high school science tutor mistakes may be present. Appropriate healthcare PPE [...] mg/inh N (more content not included)... Normal [facility] Comment on above: Result Comment: Elec [...] these instructions at home: Medicines ? Take wyca-mfx-wvnuucg and prescription medicines only as told by [...] as antibiotic medicines or antihistamines. ? Take fqda-fbi-vriwjjd and prescription medicines only as told by [...] Reviewed: 02/16/2019 Elsevier Patient Education ? 2019 [employer]. Normal [facility] ED Patient Summaryon 023 ED Patient Summary [address] [address] Patient Discharge Instructions Person Information Name: DARWIN HEART Age: 82 Years Arrival Date: 11/12/2022 11:39:42 Discharge Diagnosis: Cellulitis; Wrist pain Primary Care Physician: JAVIER MARY DO Provider Information Primary Provider: Sanjeev Johnston DO Advanced Monotype Setter:Clyde Alas PA-C The exam and treatment you received in the Emergency Department were for an urgent problem and are not intended as complete care. It is important that you follow up with a doctor, nurse practitioner, or physician?s student assistant for ongoing care. If your symptoms [...] Follow-up Instructions: With: Address: When: JAVIER MARY [address] [place], [place] [id number] Business (1) In 3 days 11/15/2022 In the event that this physician does not participate in your insurance network, please consult with your insurance company to find a nearby participating provider. Patient Education Materials: Cellulitis, Adult A MESSAGE TO ALL PATIENTS REGARDING OPIOIDS PRESCRIPTION OPIOIDS: WHAT YOU NEED TO KNOW Prescription opioids can be used to help relieve zjbppgbn-oc-eqgvra pain and are often prescribed following a [...] be struggling with addiction, tell your health healthcare recruiter and ask for guidance or call [facility]?S [employer] Helpline at [phone]. [employer] Source: [place] (more content not included)... Normal [facility] XR Wrist 3+ Views Righton XR [...] MD, V. Transcribed by: JOLEEN Technologist: MOHAN [facility] Office Visit (Cardiology)on 10-20-2022 Follow-up [...] NEEDED. amLODIP (more content not included)... Normal [facility] Tobacco Screening.on 023 Adult depression screening assessment No [facility] 600 DO Work Phone: Fall risk assessment a) No falls within the last year [facility] DO Work Phone: Tobacco use status CP b) No [facility] 600 DO Work Phone: Coding Summary.on 10-01-2022 Coding Summary. [id number] Gh0bWw+PGhlYWQ+PE1FV BVuC24idUGlnA5MF3wNU M0YCJKBDTAWAU9QZT9uk WQ1TIknE0EmagXg HfyhsLQvOR23JKm0DDF8 wIawRZqiuH4rfKWnL5r5 YdYwGA21pM26ONvaOAXq NgU3JgItbdqztAUo Y2gdAwIhsYZsIxd+PHRh YmxlIHdpZHRoPScxMDAl XhRlwCrtKD6dKs7gYLLm LWNvbGxhcHNlOiBj u5yyYOHkSXmnKB7skOzi E1AkpUL5IRWrv7m6Hv72 dHI+POYsRQK3eIcaXVff s941RhDmv5ltEGT7 vHGdDVkjGSX6W95gn6K0 CRSaWYUpZMQ4oLQ9jF8q iWpetmtiH4QvsMIzMwA2 ESR9fTDhoJ7rmRaj akbgnD1qIly+G86BLL3G SVUHEV7JOql2N1HmCxvb dHI+HN66TRJwKE78cNMk tOKnq6vfvLd2YeWu RQRkRFG6eYomZPhjf3Lx SYPtQ76xwVVov3X3JNJz zQgsdFVzSwEenUD2mM3i OIfgytpvk0kducey Dodso9jzzx39fC52W53h EQsnDLNhITI2ICKjPVXy gRwyyu6aqC0nDy9+IDxj m9cdx6hdzRj6LcKj EAWfrfWszOipKMR6l7Ec Du39C1LxoIbjb5GbGev5 db96vSWqv6F7nQM9JEka WHMrzX4rQUpaNuH1 TGIkNoVpnZ88tZAtNFfa Sq6wyYhkiWvgCN7uDZCz dovcWSVzbB7cCULkhAUm tFwfWM6hCWLvnlvm l969ObLaDFW7KEJmlHHq L1HivV0kUaUlNGKgQAWb G6UreEPzARobA762QRqj HxX4UCUsdzIvZ4Uz RAYelUvlInL3m4F9Ee8B x4NpojyjRMH0WPhoMIJo DqLgQsVjFnD3O4MeMkz6 NAPhnIspRA5iL5Kq NIKxgceqxdrldQG3VKXr FIPdrT53fLJmXAmxTi3u k6Z6t287NSWpLPZsiK92 Pz5ugBdsWEAkvPFM fQ5lcgbtf2dhuqswAwSi KSFeIBl8CNb5GKYlcBkw PkPoMGC7PqV8UPB9qLQw iR5teLoiscblaY6s Oyc+L08ydF4jAIC8WGC0 eoauKKUrxeSoRX66HR09 C8YeNwpzhVNqlAC+PGRp kyZhaKbgFB5kJnEr j7keb4VrGWvkY8OyBOAr EFhcTbo4WODvJBB5hUH1 dU0gGJTzFZhrl6T1cLZ1 P5DlkwXdmg8am9lq TBTyIBleD56hzYKww0W0 ETHgoLI2ZMFgtUenDyCq mY26Ywi+NHWwyIuzv9Hm Hwbfg2aax8mrnGj4 IjMwJSIgdmFsaWduPSJ0 e3MbAc78V41dXJxoYJQb SABiWVMxKEIaoTbvmn1a rS1eBf5+PGNvbCB3 eZA9kE5zOCWaOxT9XEsj X871ZjFniDTqHnmys4zy f3mfjGo6KvJdCCHlymYk sLasYOF2d7NtEc24 G05lULshKRMcTLVnRHFw QDIsbKaljv2okF7xZq3+ VV2cy1mcgw87iA36aVQ+ LCBvVMN6nPtrJKwr AEOaxH1rGCoyPnS2DZDn RrPryW88bYEqVYjlXp7f vQclrHqpFC5wCXSbzdvo b730ZyWag8ybVKNf uITcGXlsVOP7B04ul2B6 RSPgWGQrFIN2aRP1iV5o bGlnbjogbGVmdDsgdmVy zKpnPYzwXHpsB191 IHRvcDsnPlBhdGllbnQg LcHmPHi6X9QxCgh7PBFm eNnnNT0buNLbXHpxOg0z hMmxcGlpLT0yDWUe zcfac664SbAvr9nxQJAz gYUcOLgaCTY9Y67ai0V7 DUGsBBEiGXP8xLE1hA0k bGlnbjogbGVmdDsg hdLotHpvNTgeYAatW498 IHRvcDsnPkJpcnRoIERh mPV9GR24KI78kNFnp8N2 xGQ1K1GcIJLljnlc vpgrnXK7KLPiQNUhrF85 Wi5mlInqEt4vELAsTGL7 EFUuoWPtW9ZnyB2rKaEh YHSnLDFcA9NhnQAb KGaxO809DIrlMtH9MLUu rgVxL0OyMYXpsUjeMcG5 k0E4Bs2DO2H3EL44YD94 bLMlv1D1tBD0W0Zb XLIwgknutenneSR0VIId EKCbqE31Pz3nwXtlVo6c DFKmMDV1IPNdbHIjL6Cj qL5oFkXeWPMzIVXy Q7XfjHKnGWldS522AMbw CnL0IIPqujCgF3PjAWHk xMcnZlO7a0W5Ml2MVVv4 YT28MK36kXUfp7W2 nWN1U5ZuMKHxkksehdef nGN7WWMrDTVsfJ98Oh7j gIpxDx4lVWSjQLN8GUHb kQFtL6EjkN7aBmGs SVGbCELmG4JtfTSxAXyr X561VIuuCmN7HZRyulAe R5ClAMAlrFcgAfH9f6T5 Jh9FFLYeOK98KQP6 hZM0QE52NZ58M1IsZlzk dGFibGU+PHRhYmxlIHdp ZHRoPScxMDAlJyBzdHls CT6pEs5sZUKwNOLr mBzqnMWfQlVrt0unCUZx DCobVY5jrMoaS4OrkRB8 NSHzn5x1Aw53Y99oI5Zp dXA+HYOwbCS5mDY6 fZ7yWmMcMnI3QAwvM094 PaGayVBbHpmye8tec8oi hTt9VeW7XTUfstPorCta HVU4p6DeNr05X38r IHdpZHRoPSIxNSUiIHZh eMpbyn6jnZ7mHu4+PGNv mSW5sCJ8zA5mTsOcAtJ2 WBifW650QsFjmIOj Ycatv8krw7dybRc7UfWz VCGqwwJqsZshFVF4l9Sk En81J1BtfLfif7RsKzg9 mh49aGUjb1N4vEI1 G2JgQIJfdenviVPxoOxm FA5pHNArjhrcBGMpaM2y NYXbY0b6NxNxYiJ8GQre D1IjexH2AWHppBAj UBcfPIH0G22nk4A8XCAt NBScDMZ4mYQ7uF8zyOle bjogbGVmdDsgdmVydGlj TOfrQOqwZ873EJWn vFjbTNHjcG3jVCRuaKGu xRcwVW8bVKXjedzcXxkW VVBLRSwgQkFSQkFSQSBF WJ28DE98tWRbb1E3 gCK3J1AaLNXlipplhmbv aRN0JGLaSYTboC44nUGk TTdeFm0if5R3h505EWKc WFHfnH55Do6udZju RYGnjHLVoM9kjcnqq1zw zaexAmYgYDQjGSw2BGa8 PKOdfQhcGvVcNKO0WvU2 OXM1qYEckC2llTgz ybbohI9xNis+MDEvMjYv WOk6LuaqkFN+PHRkIHN0 iJawRSvrTFDcuL6mBYRq B0r3OxMeScH9MKfy Y0LoKSRxllwsVg48uB6w MbIgDcY5QPizH4NaurS3 IAAbhIDmUTzuAKV6Z25p d3A8FVQaTVDrNEO9 yKN7zL4afBeyckcefQZb dDsgdmVydGljYWwtYWxp I705TCDlqQlvJtf0SMcl YAXeZH95ML73cREu x4D7tKY4L8DrIGAympwn drqgmRT8ARWdQMKgkB64 gBOtKYjqJt8uj6R0a825 VJTlIBLxiP86Lr0r aNksYXTrsJXPxY8tqaac a5mufnvsVaEtDQBoMQr9 ADn5TQUpxRllYtJmGGR4 TbN2OHV8xOKzeT9s sFkwqrfvjG4bXij+RmVt TIrfBF22AN21sXDhz3J9 uRH3A7EsROXwkwfsoqas aQF7RPZzCYVlwA23 zBBoNAetUo2fe4F5x554 XVYzGBJxxC94Im8gjEzv MUFopUSCxI8jjlcua4yp cjogIzAwMDAwMDt0 RZb4ZKCqnUgxIqQuNPS1 LwC3CBN4rZEukN2ggCqz lrxtwZ6iDjz+K6J8cMR0 aWVudDwvdGQ+PC90 ar26L0UnGnirPru1MGMm PQG6tQV4wX3uLQBbAGnp n5J5eXU2U0FcspJvvd2e j0wvXUQnHHnoQ14z eCJid0S4AUAbwMR1LKHr bPbzZcNtdI94Fal+PGNv uRhkf2TfWtufw2qcf7xi cZy3AfLfGGFmnwLc qGnwUOK7c8WhGn33D34r IHdpZHRoPSIzMCUiIHZh bMwock8aqX3zBs5+PGNv jWW9eUL6eQ0zPrWn ZaL0LGfhC721XxFshEPf Mgsxm7jal1gjtDi3EwFb ZPRwugAdvOplZCI6m0Ax Kr49V1QbaQycx4Ek Meb7bq11wMPub1F3wGA5 M2XjWFSkejbmpCAwoHsu QP6jUJNjwmdgDZVhbL4s FTRqE5d5XgKwIqC0 QTzuJ8YgwxN2UTTrlNPx SPCeaUYBlJ2zaudxh6zx uqljYlIbLSYjJLu6ZZg8 LWFsaWduOiBsZWZ0 WbU3ZMJ4mFQikZ4diQll madlpD5iHwp+BRw2v3ho qWIbOK0ccOE7TN09IW09 hSYud4T7xFD4C1Ts OBJoxavnrnrnjZX6TCNt TANpbF41Mc9szXjvQb2a UMFzBKP7BZNxuYDuH4Lo bM4hKsLtKEHyNQPs S0RpvYBwXHybL375SYpy ReP1XVBmzaSkG5PsLOBp xItrFqD0k0A0Lk7DBZ20 SS67KY85dEBjm8A2 iIN6M6BdYCJkbyqjqvop hYJ0WHEqAVCfuW30Op1y kTbvOg6xDZEjIHJ1KUGr yTQuV6KkxU8mNqPs YTRyEGGaT0PtvDDvOCrl A118PFakAmA3VQMothDf W5XjZWJsgKumFlM2e0H6 Ml1ELz17OL98DB97 qJVtb2H0nXE6Q0TlBHAl bbshqytpvJZ4ECHvCARw xV21Wk8ksBblBf7oFOWv UIN8CLTseDKtB2Am uN0nIaYdKKUrEPPgQ4Jo hJAzHDgbR583XJguSxB0 JKCbihYrP0FpGNIlcTne XnK7a8F7Xa5GQNmp ftx7W2CfKlwugIO+PC90 PQVrMX52qYAdjJBjj1yi mBl7YaCpOPCtTVL3nUwp PDlwx7BkGSEzM15x bGFw (more content not included)... Normal [facility] John 09-28-2022 ALT No additional P-5'-P [Catalytic activity/Vol] 17 Int._Unit/L Normal 6-46 [facility] Comment on above: Performed By: #### 1 [id number], [id number], 5928180, [id number] #### [facility] [address] [place] [address] Ryder 09-28-2022 AST [Catalytic activity/Vol] 18 Int._Unit/L Normal 5-43 [facility] Comment on above: Performed By: #### 1 [id number], 5183908, 0130519, [id number] #### [facility] [address] [place] [address] BMPon 09-28-2022 Anion gap [Moles/Vol] 12 mmol/L Normal 6-16 [facility] Comment on above: Performed By: #### 1 [id number], 6610807, 0930478, 7438335 #### [facility] [address] [place] [address] Calcium [Mass/Vol] 10.0 mg/dL Normal 8.9-11.1 [facility] Comment on above: Performed By: #### 1 [id number], 4609384, 3589850, 8037406 #### [facility] [address] [place] [address] Chloride [Moles/Vol] 102 mmol/L Normal 101-111 [facility] Comment on above: Performed By: #### 1 1326492, 1595093, 8400293, 7119347 #### [facility] [address] [place] [address] CO2 [Moles/Vol] 30 mmol/L Normal 21-31 [facility] Comment on above: Performed By: #### 1 [id number], 1945745, 0818646, 5046047 #### [facility] [address] [place] [address] Creatinine [Mass/Vol] 1.0 mg/dL Normal 0.5-1.3 [facility] Comment on above: Performed By: #### 1 5850168, 6891569, 4681648, 1813454 #### [facility] [address] [place] [address] Glucose [Mass/Vol] 114 mg/dL Normal 55-199 [facility] Comment on above: Result Comment: If t his glucose result represents a fasting glucose, interpretation should refer to the following reference range: 55-99 mg/dL Performed By: #### 1 [id number], 4626032, 7222332, 1744185 #### [facility] [address] [place] [address] Potassium [Moles/Vol] 4.3 mmol/L Normal 3.5-5.3 [facility] Comment on above: Performed By: #### 1 [id number], 0021983, 3509430, 8985097 #### [facility] [address] [place] [address] Sodium [Moles/Vol] 140 mmol/L Normal 135-145 [facility] Comment on above: Performed By: #### 1 3950982, 3223520, 9873486, 9900010 #### [facility] [address] [place] [address] Urea nitrogen [Mass/Vol] 29 mg/dL High 5-21 [facility] Comment on above: Performed By: #### 1 [id number], 0378950, 7236733, 3361771 #### [facility] [address] [place] [address] Urea nitrogen/Creatinine [Mass ratio] 29 No Units High 10-20 [facility] Comment on above: Performed By: #### 1 [id number], 3635265, 4394110, 5977625 #### [facility] [address] [place] [address] CBC w/Indiceson 09-28-2022 Erythrocyte distribution width (RBC) [Ratio] 14.0 % Normal 10.9-14.2 [facility] Comment on above: Performed By: #### 1 3292584, 3122388, 1211424, 4118964 #### [facility] [address] [place] [address] Hematocrit (Bld) [Volume fraction] 39.9 % Normal 34.0-46.0 [facility] Comment on above: Performed By: #### 1 0392986, 3903424, 4038640, 9995131 #### [facility] [address] [place] [address] Hemoglobin (Bld) [Mass/Vol] 13.1 g/dL Normal 12.0-16.0 [facility] Comment on above: Performed By: #### 1 1712748, 3886983, 9257689, 3975096 #### [facility] [address] [place] [address] MCH (RBC) [Entitic mass] 29.6 pg Normal 27.0-34.0 [facility] Comment on above: Performed By: #### 1 7295654, 0413426, 9827464, 4556283 #### [facility] [address] [place] [address] MCHC (RBC) [Mass/Vol] 32.9 g/dL Normal 31.4-36.0 [facility] Comment on above: Performed By: #### 1 2379524, 7228869, 3503167, 9932496 #### [facility] [address] [place] [address] MCV (RBC) [Entitic vol] 90.0 fL Normal 80.0-100.0 [facility] Comment on above: Performed By: #### 1 7975729, 4250424, 0513274, 6731976 #### [facility] [address] [place] [address] Platelet mean volume (Bld) [Entitic vol] 7.7 fL Normal 6.4-10.8 [facility] Comment on above: Performed By: #### 1 2632824, 3833906, 9941687, 9646132 #### [facility] [address] [place] [address] Platelets (Bld) [#/Vol] 187.0 E9/L Normal 150.0-500.0 [facility] Comment on above: Performed By: #### 1 7878962, 2689934, 2529101, 7670533 #### [facility] [address] [place] [address] RBC (Bld) [#/Vol] 4.4 E12/L Normal 4.3-5.9 [facility] Comment on above: Performed By: #### 1 9518463, 6571970, 1502109, 9156920 #### [facility] [address] [place] [address] WBC corrected for nucl RBC Auto (Bld) [#/Vol] 7.2 E9/L Normal 4.0-11.0 [facility] Comment on above: Performed By: #### 1 8462509, 9874336, 6682131, 1719522 #### [facility] [address] [place] [address] CHEMISTRYOrdered By: SYSTEM SYSTEM on 09-28-2022 ALT [...] rate/Area] mL/min/1.73 m2 Normal >=59mL/min/1 .73 m2 [facility] Chem S GFR/1.73 sq M.predicted among non-blacks MDRD (S/P/Bld) [Vol rate/Area] 53 mL/min/1.73 m2 Low >=59mL/min/1 .73 m2 [facility] Chem S Glucose [Mass/Vol] 114 mg/dL Normal [...] Treatmenton 09-10 Consent for Treatment [id number] #[id number]:127 Normal [facility] HEMATOLOGYOrdered By: Noelle Daly on 09-28-2022 [...] 7.2 E9/L Normal 4.0 - 11.0 E9/L [facility] HemeAutoSS Laboratory - Chemistry and C hemistry - challengeon 09-28-2022 Cholesterol [Mass/Vol] 92 mg/dL Normal <=129 [facility] 600 DO Work Phone: Cholesterol in LDL [Mass/Vol] 9 mg/dL Normal 7-40 [facility] 600 DO Work Phone: Laboratory - Chemistry and C hemistry - challengeOrdered By: SYSTEM SYSTEM on 09-28-2022 CO2 [Moles/Vol] 30 mmol/L Normal 21-31 [facility] Marino mack Laboratory - Hematology and Cell countsOrdered By: Noelle Daly on 09-28-2022 Erythrocyte distribution width (RBC) [Ratio] 14.0 % Normal 10.9-14.2 [facility] Hematocrit (Bld) [Volume fraction] 39.9 % Normal 34.0-46.0 [facility] S Platelet mean volume (Bld) [Entitic vol] 7.7 fL Normal 6.4-10.8 [facility] HemeAut oSS Lipid Panelon 09-28-2022 Cholesterol [Mass/Vol] 197 mg/dL Normal 120-200 [facility] Comment on above: Performed By: #### 1 [id number], 7828555, 6316486, 2016117 #### [facility] [address] [place] [address] Cholesterol in HDL [Mass/Vol] 91 mg/dL Invalid Interpretation Code [facility] Comment on above: Result Comment: HDL > or equal to 60 mg/dL: Low cardiovascular risk HDL < 40 mg/dL : High cardiovascular risk Performed By: #### 1 0110375, 4140376, 2772020, 1645419 #### [facility] [address] [place] [address] Cholesterol in LDL [Mass/Vol] 92 mg/dL Normal <=129 [facility] Comment on above: Performed By: #### 1 3310500, 4870565, 7919716, 5138153 #### [facility] [address] [place] [address] Cholesterol in VLDL [Mass/Vol] 9 mg/dL Normal 7-40 [facility] Comment on above: Performed By: #### 1 2722866, 7424038, 0299027, 1350831 #### [facility] [address] [place] [address] Triglyceride [Mass/Vol] 47 mg/dL Normal <=149 [facility] Comment on above: Performed By: #### 1 0460182, 4497262, 0825649, 1963269 #### [facility] [address] [place] [address] No Panel Informationon 09-28 187.0 {E9/L} Normal 150.0-500.0 [facility] 600 DO Work Phone: 90.0 fL Normal 80.0-100.0 [facility] 600 DO Work Phone: 32.9 {gm/dL} Normal 31.4-36.0 [facility] 600 DO Work Phone: 29.6 pg Normal 27.0-34.0 [facility] 600 DO Work Phone: 13.1 {gm/dL} Normal 12.0-16.0 [facility] 600 DO Work Phone: 4.4 {E12/L} Normal 4.3-5.9 [facility] 600 DO Work Phone: 7.2 {E9/L} Normal 4.0-11.0 [facility] 600 DO Work Phone: 12 {mEq/L} Normal 6-16 [facility] 600 DO Work Phone: 102 mmol/L Normal 101-111 [facility] 600 DO Work Phone: 4.3 mmol/L Normal 3.5-5.3 [facility] 600 DO Work Phone: 140 mmol/L Normal 135-145 [facility] DO Work Phone: 10.0 mg/dL Normal 8.9-11.1 [facility] 600 DO Work Phone: 29 {No_Units} above high threshold 10-20 [facility] 600 DO Work Phone: 1.0 mg/dL Normal 0.5-1.3 [facility] 600 DO Work Phone: 29 mg/dL above high threshold 5-21 [facility] 600 DO Work Phone: 114 mg/dL Normal 55-199 [facility] 600 DO Work Phone: Comment on above: If this glucose resu lt represents a fasting glucose, interpretation should refer to the following reference range: 55-99 mg/dL >60 Normal >=59 [facility] 600 DO Work Phone: Comment on above: eGFR is race adjuste d. AA=. 53 {mL/min/1.73_m2} below low threshold >=59 [facility] 600 DO Work Phone: Comment on above: Chronic kidney disea se could be indicated at eGFR's of less than 60 mL/min/1.73m2. Kidney failure is indicated at less than 15 mL/min/1.73m2. 17 {Int._Unit/L} Normal 6-46 [facility] 600 DO Work Phone: 18 {Int._Unit/L} Normal 5-43 [facility] 600 DO Work Phone: 47 mg/dL Normal <=149 [place] [address] DO Work Phone: 91 mg/dL [facility] 600 DO Work Phone: Comment on above: HDL > or equal to 60 mg/dL: Low cardiovascular riskHDL < 40 mg/dL : High cardiovascular risk 197 mg/dL Normal 120-200 [facility] 600 DO Work Phone: Physician Orderon 09-28-2022 Physician Order [id number] #[id number]:127 Normal [facility] eGFRon 09-28-2022 GFR/1.73 sq M.predicted among blacks MDRD (S/P/Bld) [Vol rate/Area] mL/min/{1.73_m2} Normal >=59 [facility] Comment on above: Order Comment: Order Added by Discern Expert. Result Comment: eGFR is race adjusted. AA=. Performed By: #### 1 [id number], 4007799, 3252093, 5275052 #### [facility] [address] [place] [address] GFR/1.73 sq M.predicted among non-blacks MDRD (S/P/Bld) [Vol rate/Area] 53 mL/min/1.73 m2 Low >=59 [facility] Comment on above: Order Comment: Order Added by Discern Expert. Result Comment: Rn Icu karl kidney disease could be indicated at eGFR's of less than 60 mL/min/1.73m2. Kidney failure is indicated at less than 15 mL/min/1.73m2. Performed By: #### 1 [id number], 8353067, 4259383, 5308820 #### [facility] [address] [place] [address] Tobacco Screening.on Adult depression screening assessment No [facility] 600 DO Work Phone: Fall risk assessment a) No falls within the last year [facility] 600 DO Work Phone: Tobacco use status [facility]PH[facility] b) No [facility] 600 DO Work Phone: A1C HEMOGLOBINon 03-16-2022 HbA1c (Bld) [Mass fraction] 5.2 % [employer] Other HbA1c (Bld) [Mass fraction]o n 03-16-2022 A1C HEMOGLOBIN [employer] Other Tobacco Screening.on Fall risk assessment a) No falls within the last year [facility] 600 DO Work Phone: Tobacco use status CPHS b) No [facility] 600 DO Work Phone: No Panel Informationon 10-29 25.0\S\25.0 Normal 22.0-30.0 [facility] DO Work Phone: Comment on above: PERFORMED BY:[facility] [place], [place] [id number] MEDICAL DIRECTORROBERTO CARLOS MURILLO M.D. 102\S\102 Normal 95-114 [facility] 250 DO Work Phone: 4.2\S\4.2 Normal 3.5-5.1 [facility] DO Work Phone: 140\S\140 Normal 136-146 [facility] 250 DO Work Phone: Laboratory - Microbiology an d Antimicrobial susceptibilityon 10-27-2021 SARS-CoV-2 (COVID-19) RNA GISSEL+probe Ql (Unsp spec) [facility] 250 DO Work Phone: No Panel Informationon 10-27 Negative Normal Negative [place] [address] DO Work Phone: Comment on above: This is a duplicate Sharifa SARS Antigen (JAYMIE) result to be used for statistical tracking purpose only.PERFORMED BY:[facility] [place], [place] [id number] MEDICAL DIRECTORROBERTO CARLOS MURILLO M.D. Falls Risk Screeningon 10-14 Fall risk assessment a) No falls within the last year [facility] 250 DO Work Phone: Falls Risk Screeningon 09-24 Fall risk assessment b) One or more fall s in the last year [facility] 600 DO Work Phone: Tobacco use status CPHS b) No [facility] 600 DO Work Phone: A1C HEMOGLOBINon 09-15-2021 HbA1c (Bld) [Mass fraction] 5.6 % [facility] Other HbA1c (Bld) [Mass fraction]o n 09-15-2021 A1C HEMOGLOBIN [facility] Other CBC AUTO DIFFon 12-15-2018 Basophils #/vol (Bld) 0.0 103/ul Normal 0.0-0.1 [facility] Comment on above: Performed By: #### C BC ####[facility] [address] [place] [id number] Bryanna Basophils/100 WBC (Bld) 0.4 % Normal 0.2-2.0 [facility] Comment on above: Performed By: #### C BC ####[facility] [address] [place] [address] Bryanna Eosinophils #/vol (Bld) 0.1 103/ul Normal 0.0-0.7 [facility] Comment on above: Performed By: #### C BC ####[facility] [address] [place] [address] Bryanna Eosinophils/100 WBC (Bld) 0.7 % Critically low 0.9-7.0 [facility] Comment on above: Performed By: #### C BC ####[facility] [address] [place] [address] Bryanna Erythrocyte distribution width Ratio (RBC) 13.2 % Normal 11.0-15.0 [facility] Comment on above: Performed By: #### C BC ####[facility] [address] [place] [address] Bryanna Hematocrit Volume Fraction (Bld) 34.9 % Critically low 36.0-48.0 [facility] Comment on above: Performed By: #### C BC ####[facility] [address] [place] [address] Bryanna Hemoglobin mass conc (Bld) 11.4 g/dL Critically low 12.0-16.0 [facility] Comment on above: Performed By: #### C BC ####[facility] [address] [place] [address] Bryanna IG # 0.06 10e3/ul Critically high 0.00-0.03 [facility] Comment on above: Performed By: #### C BC ####[facility] [address] [place] [address] Bryanna IG % 0.6 % Critically high 0.0-0.5 [facility] Comment on above: Performed By: #### C BC ####[facility] [address] [place] [address] Bryanna Lymphocytes #/vol (Bld) 2.0 103/ul Normal 1.2-3.8 [facility] Comment on above: Performed By: #### C BC ####[facility] [address] [place], [place] [id number] Gould Lymphocytes/100 WBC (Bld) 18.9 % Critically low 20.5-60.0 [facility] Comment on above: Performed By: #### C BC ####[facility] [address] [place] [address] Bryanna MANUAL DIFF REQ NO Normal [facility] Comment on above: Performed By: #### C BC ####[facility] [address] [place] [address] Bryanna MCH Entitic mass (RBC) 30.2 pg Normal 26.7-34.0 The [facility] Comment on above: Performed By: #### C BC ####[facility] [address] [place] [address] Bryanna MCHC mass conc (RBC) 32.7 g/dL Normal 29.9-35.2 [facility] Comment on above: Performed By: #### C BC ####[facility] [address] [place] [address] Bryanna MCV Entitic volume (RBC) 92.3 fL Normal 81.0-99.0 [facility] Comment on above: Performed By: #### C BC ####[facility] [address] [place] [address] Bryanna Monocytes #/vol (Bld) 0.9 103/ul Critically high 0.3-0.8 [facility] Comment on above: Performed By: #### C BC ####[facility] Elzo[address] [place], [place] [address]Gerjluis Gould Monocytes/100 WBC (Bld) 8.3 % Normal 1.7-12.0 [facility] Comment on above: Performed By: #### C BC ####[facility] [address] [place] [address] Bryanna Neutrophils #/vol (Bld) 7.6 103/ul Critically high 1.4-6.5 [facility] Comment on above: Performed By: #### C BC ####[facility] Ortamn[address]rb[address] Bryanna Neutrophils/100 WBC (Bld) 71.1 % Normal 43.0-75.0 [facility] Comment on above: Performed By: #### C BC ####[facility] [address] [place] [address] Bryanna Platelet mean volume Entitic volume (Bld) 9.5 fL Normal 9.5-13.5 The [facility] Comment on above: Performed By: #### C BC ####[facility] [address] [place] [address] Bryanna Platelets #/vol (Bld) 151 103/ul Normal 150-450 [facility] Comment on above: Performed By: #### C BC ####[facility] [address] [place] [address] Bryanna RBC #/vol (Bld) 3.78 106/ul Critically low 4.20-5.40 [facility] Comment on above: Performed By: #### C BC ####[facility] [address] [place] [address] Bryanna WBC #/vol (Bld) 10.7 103/ul Normal 4.0-11.0 The [facility] Comment on above: Performed By: #### C BC ####[facility] [address] [place] [address] Bryanna PROF CHEM 8 (BAS METB)on Anion gap molar conc 7.1 mmol/L Normal [facility] Comment on above: Performed By: #### B MP ####[facility] I[address] [place] [address] Bryanna Calcium mass conc 9.5 mg/dL Normal 8.4-10.2 The [facility] Comment on above: Performed By: #### B MP ####[facility] [address] [place] [address] Bryanna Chloride molar conc 109 mmol/L Critically high 98-107 [facility] Comment on above: Performed By: #### B MP ####[facility] [address] [place] [address]Ger[address] Bryanna CO2 molar conc 30.0 mmol/L Normal 22.0-30.0 [facility] Comment on above: Performed By: #### B MP ####[facility] [address] [place] [address]Gerken Bryanna Creatinine mass conc 0.93 mg/dL Normal 0.52-1.04 [facility] Comment on above: Performed By: #### B MP ####[facility] Jmtrhentvp24[address] Bryanna EGFR-AF SPANISH >60 Normal >=60 [facility] Comment on above: Performed By: #### B MP ####[facility] [address] [place] [address] Bryanna EGFR-NON AF SPANISH 59 mL/min/1.73m2 Critically low >=60 [facility] Comment on above: Performed By: #### B MP ####[facility] [address] [place] [address] Bryanna Glucose mass conc 95 mg/dL Normal 74-106 The [facility] Comment on above: Performed By: #### B MP ####[facility] [address] [place] [address] Bryanna Potassium molar conc 4.1 mmol/L Normal 3.4-5.0 [facility] Comment on above: Performed By: #### B MP ####[facility] [address] [place] [address]Ger[address] Bryanna Sodium molar conc 142 mmol/L Normal 137-145 [facility] Comment on above: Performed By: #### B MP ####[facility] I[address]ibc[address] Bryanna Urea nitrogen mass conc 18.0 mg/dL Critically high 7.0-17.0 [facility] Comment on above: Performed By: #### B MP ####[facility] [address] [place], [place] [address]Qfaaay Karen Urea nitrogen/Creatinine mass ratio 19.4 mg/mg Normal [facility] Comment on above: Performed By: #### B MP ####[facility] [address] [place], [place] [address]Pubqjy Bryanna CBC AUTO DIFFon 12-14-2018 Basophils #/vol (Bld) 0.0 103/ul Normal 0.0-0.1 [facility] Comment on above: Performed By: #### C BC #### [facility] [address] [id number] Marie Bryanna Basophils/100 WBC (Bld) 0.1 % Critically low 0.2-2.0 [facility] Comment on above: Performed By: #### C BC #### [facility] [address] [place] [address] Marie Bryanna Eosinophils #/vol (Bld) 0.0 103/ul Normal 0.0-0.7 [facility] Comment on above: Performed By: #### C BC #### [facility] [address] [place], [place] [address] Marie Bryanna Eosinophils/100 WBC (Bld) 0.0 % Critically low 0.9-7.0 [facility] Comment on above: Performed By: #### C BC #### [facility] [address] [place], [place] [address] Mariejluis Gould Erythrocyte distribution width Ratio (RBC) 12.7 % Normal 11.0-15.0 [facility] Comment on above: Performed By: #### C BC #### [facility] [address] [place], [place] [address] Mariejluis Gould Hematocrit Volume Fraction (Bld) 37.3 % Normal 36.0-48.0 [facility] Comment on above: Performed By: #### C BC #### [facility] [address] [place], [place] [address] Mariejluis Gould Hemoglobin mass conc (Bld) 12.6 g/dL Normal 12.0-16.0 [facility] Comment on above: Performed By: #### C BC #### [facility] [address] [id number] Marie Bryanna IG # 0.12 10e3/ul Critically high 0.00-0.03 [facility] Comment on above: Performed By: #### C BC #### [facility] [address] [place] [id number] Marie Bryanna IG % 0.7 % Critically high 0.0-0.5 [facility] Comment on above: Performed By: #### C BC #### [facility] [address] [place] [address] Marie Bryanna Lymphocytes #/vol (Bld) 1.0 103/ul Critically low 1.2-3.8 [facility] Comment on above: Performed By: #### C BC #### [facility] [address] [place] [address] Marie Bryanna Lymphocytes/100 WBC (Bld) 5.9 % Critically low 20.5-60.0 [facility] Comment on above: Performed By: #### C BC #### [facility] [address] [place], [place] [address] Marie Gould MANUAL DIFF REQ NO Normal [facility] Comment on above: Performed By: #### C BC #### [facility] [address] [place] [address] Mariejluis Gould MCH Entitic mass (RBC) 30.2 pg Normal 26.7-34.0 [facility] Comment on above: Performed By: #### C BC #### [facility] [address] [place] [address] Mariejluis Gould MCHC mass conc (RBC) 33.8 g/dL Normal 29.9-35.2 [facility] Comment on above: Performed By: #### C BC #### [facility] [address] [place] [address] Marie Bryanna MCV Entitic volume (RBC) 89.4 fL Normal 81.0-99.0 [facility] Comment on above: Performed By: #### C BC #### [facility] [address] [place], [place] [address] Marie Bryanna Monocytes #/vol (Bld) 1.0 103/ul Critically high 0.3-0.8 [facility] Comment on above: Performed By: #### C BC #### [facility] [address] [place] [id number] Marie Bryanna Monocytes/100 WBC (Bld) 6.3 % Normal 1.7-12.0 [facility] Comment on above: Performed By: #### C BC #### [facility] [address] [place], [place] [address] Marie Bryanna Neutrophils #/vol (Bld) 14.1 103/ul Critically high 1.4-6.5 [facility] Comment on above: Performed By: #### C BC #### [facility] [address] [place], [place] [address] Marie Bryanna Neutrophils/100 WBC (Bld) 87.0 % Critically high 43.0-75.0 [facility] Comment on above: Performed By: #### C BC #### [facility] [address] [place], [place] [address] Marie Bryanna Platelet mean volume Entitic volume (Bld) 9.6 fL Normal 9.5-13.5 [facility] Comment on above: Performed By: #### C BC #### [facility] [address] [place], [place] [address] Marie Bryanna Platelets #/vol (Bld) 188 103/ul Normal 150-450 [facility] Comment on above: Performed By: #### C BC #### [facility] [address] [place], [place] [address] Marie Bryanna RBC #/vol (Bld) 4.17 106/ul Critically low 4.20-5.40 [facility] Comment on above: Performed By: #### C BC #### [facility] [address] [place], [place] [address] Marie Bryanna WBC #/vol (Bld) 16.2 103/ul Critically high 4.0-11.0 [facility] Comment on above: Performed By: #### C BC #### [facility] [address] [place] [id number] Mariejluis Yehen GLYCOHEMOGLOBIN A1Con 2018 Glucose mass conc 126 mg/dL Normal [facility] Comment on above: Performed By: #### A 1C #### [facility] [address] [place] [id number] Marie Bryanna Hemoglobin A1c/Hemoglobin.total mass fraction (Bld) 6.0 % Normal <=6.0 [facility] Comment on above: Performed By: #### A 1C #### [facility] [address] [place] [id number] Mariejluis Yehen PROF CHEM 8 (BAS METB)on Anion gap molar conc 10.8 mmol/L Normal [facility] Comment on above: Performed By: #### B MP #### [facility] [address] [place], [place] [address] Marie Bryanna Calcium mass conc 9.6 mg/dL Normal 8.4-10.2 [facility] Comment on above: Performed By: #### B MP #### [facility] [address] [place] [phone] Marie Bryanna Chloride molar conc 106 mmol/L Normal 98-107 [facility] Comment on above: Performed By: #### B MP #### [facility] [address] [place], [place] [address] Marie Bryanna CO2 molar conc 27.3 mmol/L Normal 22.0-30.0 [facility] Comment on above: Performed By: #### B MP #### [facility] [address] [place] [id number] Marie Bryanna Creatinine mass conc 1.20 mg/dL Critically high 0.52-1.04 [facility] Comment on above: Performed By: #### B MP #### [facility] [address] [place] [phone] Marie Bryanna EGFR-AF SPANISH 53 mL/min/1.73m2 Critically low >=60 [facility] Comment on above: Performed By: #### B MP #### [facility] [address] [place] [phone] Marie Bryanna EGFR-NON AF SPANISH 44 mL/min/1.73m2 Critically low >=60 [facility] Comment on above: Performed By: #### B MP #### [facility] [address] [place] [id number] Marie Gould Glucose mass conc 151 mg/dL Critically high 74-106 [facility] Comment on above: Performed By: #### B MP #### [facility] [address] [place] [address] Marie Gould Potassium molar conc 4.1 mmol/L Normal 3.4-5.0 [facility] Comment on above: Performed By: #### B MP #### [facility] [address] [place] [address] Marie Gould Sodium molar conc 140 mmol/L Normal 137-145 [facility] Comment on above: Performed By: #### B MP #### [facility] [address] [place] [address] Marie Gould Urea nitrogen mass conc 25.0 mg/dL Critically high 7.0-17.0 [facility] Comment on above: Performed By: #### B MP #### [facility] [address] [place] [phone] Marie Gould Urea nitrogen/Creatinine mass ratio 20.8 mg/mg Normal [facility] Comment on above: Performed By: #### B MP #### [facility] [address] [place] [address] Marie Gould XR HEEL LT 2Von 12-13-2018 XR HEEL LT 2V [address] [place], [place] [id number] Patient: [facility] Exam Date: 12/13/2018 : 1940 Gender:F Ordering : DR. DARVIN CortezPBridger Admission #: [id number] Family : Order #: [id number] CLICK HERE TO VIEW EXAM RADIOLOGY REPORT [...] M.D. on 12/13/2018 at 13:14 Normal [facility] CBC AUTO DIFFon 12-06-2018 Basophils #/vol (Bld) 0.0 103/ul Normal 0.0-0.1 [facility] Comment on above: Performed By: #### C BC #### [facility] [address] [place] [address] Marie Bryanna Basophils/100 WBC (Bld) 0.6 % Normal 0.2-2.0 [facility] Comment on above: Performed By: #### C BC #### [facility] [address] [place] [address] Marie Bryanna Eosinophils #/vol (Bld) 0.1 103/ul Normal 0.0-0.7 [facility] Comment on above: Performed By: #### C BC #### [facility] [address] [place] [address] Marie Bryanna Eosinophils/100 WBC (Bld) 1.1 % Normal 0.9-7.0 [facility] Comment on above: Performed By: #### C BC #### [facility] [address] [place] [address] Mariejluis Gould Erythrocyte distribution width Ratio (RBC) 13.0 % Normal 11.0-15.0 [facility] Comment on above: Performed By: #### C BC #### [facility] [address] [place] [address] Mariejluis Yehen Hematocrit Volume Fraction (Bld) 41.8 % Normal 36.0-48.0 [facility] Comment on above: Performed By: #### C BC #### [facility] [address] [place], [place] [address] Marie Gould Hemoglobin mass conc (Bld) 13.9 g/dL Normal 12.0-16.0 [facility] Comment on above: Performed By: #### C BC #### [facility] [address] [place] [address] Marie Gould IG # 0.03 10e3/ul Normal 0.00-0.03 [facility] Comment on above: Performed By: #### C BC #### [facility] [address] [place] [address] Marie Gould IG % 0.5 % Normal 0.0-0.5 [facility] Comment on above: Performed By: #### C BC #### [facility] [address] [place] [address] Marie Gould Lymphocytes #/vol (Bld) 1.7 103/ul Normal 1.2-3.8 [facility] Comment on above: Performed By: #### C BC #### [facility] [address] [place] [address] Marie Gould Lymphocytes/100 WBC (Bld) 26.4 % Normal 20.5-60.0 [facility] Comment on above: Performed By: #### C BC #### [facility] [address] [place] [address] Marie Gould MANUAL DIFF REQ NO Normal [facility] Comment on above: Performed By: #### C BC #### [facility] [address] [place] [address] Marie Gould MCH Entitic mass (RBC) 30.3 pg Normal 26.7-34.0 [facility] Comment on above: Performed By: #### C BC #### [facility] [address] [place] [address] Marie Gould MCHC mass conc (RBC) 33.3 g/dL Normal 29.9-35.2 [facility] Comment on above: Performed By: #### C BC #### [facility] [address] [place] [address] Marie oGuld MCV Entitic volume (RBC) 91.3 fL Normal 81.0-99.0 [facility] Comment on above: Performed By: #### C BC #### [facility] [address] [place], [place] [address] Marie Bryanna Monocytes #/vol (Bld) 0.5 103/ul Normal 0.3-0.8 [facility] Comment on above: Performed By: #### C BC #### [facility] [address] [place], [place] [address] Marie Bryanna Monocytes/100 WBC (Bld) 7.4 % Normal 1.7-12.0 [facility] Comment on above: Performed By: #### C BC #### [facility] [address] [place], [place] [address] Marie Bryanna Neutrophils #/vol (Bld) 4.2 103/ul Normal 1.4-6.5 [facility] Comment on above: Performed By: #### C BC #### [facility] [address] [place] [id number] Marie Bryanna Neutrophils/100 WBC (Bld) 64.0 % Normal 43.0-75.0 [facility] Comment on above: Performed By: #### C BC #### [facility] [address] [place], [place] [address] Marie Bryanna Platelet mean volume Entitic volume (Bld) 9.4 fL Critically low 9.5-13.5 [facility] Comment on above: Performed By: #### C BC #### [facility] [address] [place] [id number] Marie Bryanna Platelets #/vol (Bld) 182 103/ul Normal 150-450 [facility] Comment on above: Performed By: #### C BC #### [facility] [address] [place], [place] [address] Marie Bryanna RBC #/vol (Bld) 4.58 106/ul Normal 4.20-5.40 [facility] Comment on above: Performed By: #### C BC #### [facility] [address] [place], [place] [address] Marie Bryanna WBC #/vol (Bld) 6.6 103/ul Normal 4.0-11.0 [facility] Comment on above: Performed By: #### C BC #### [facility] [address] [place] [address] Marie Gould PROF CHEM 8 (BAS METB)on Anion gap molar conc 12.2 mmol/L Normal [facility] Comment on above: Performed By: #### B MP #### [facility] [address] [place] [address] Marie Bryanna Calcium mass conc 10.2 mg/dL Normal 8.4-10.2 [facility] Comment on above: Performed By: #### B MP #### [facility] [address] [place] [address] Marie Bryanna Chloride molar conc 103 mmol/L Normal 98-107 [facility] Comment on above: Performed By: #### B MP #### [facility] [address] [place] [address] Marie Bryanna CO2 molar conc 31.7 mmol/L Critically high 22.0-30.0 [facility] Comment on above: Performed By: #### B MP #### [facility] [address] [place] [address] Marie Bryanna Creatinine mass conc 0.78 mg/dL Normal 0.52-1.04 [facility] Comment on above: Performed By: #### B MP #### [facility] [address] [place] [address] Marie Bryanna EGFR-AF SPANISH >60 Normal >=60 [facility] Comment on above: Performed By: #### B MP #### [facility] [address] [place] [address] Marie Bryanna EGFR-NON AF SPANISH >60 Normal >=60 [facility] Comment on above: Performed By: #### B MP #### [facility] [address] [place] [address] Marie Bryanna Glucose mass conc 103 mg/dL Normal 74-106 [facility] Comment on above: Performed By: #### B MP #### [facility] [address] [place] [address] Marie Bryanna Potassium molar conc 3.9 mmol/L Normal 3.4-5.0 [facility] Comment on above: Performed By: #### B MP #### [facility] [address] [place] [address] Marie Gould Sodium molar conc 143 mmol/L Normal 137-145 [facility] Comment on above: Performed By: #### B MP #### [facility] [address] [place] [address] Mariejluis Gould Urea nitrogen mass conc 21.0 mg/dL Critically high 7.0-17.0 [facility] Comment on above: Performed By: #### B MP #### [facility] [address] [place] [address] Mariejluis Gould Urea nitrogen/Creatinine mass ratio 26.9 mg/mg Normal [facility] Comment on above: Performed By: #### B MP #### [facility] [address] [place] [address] Mariejluis Gould PROTIMEon 12-06-2018 INR Coag RelTime (PPP) 1.01 {INR} Normal [facility] Comment on above: Performed By: #### P T, PTT #### [facility] [address] [place] [address] Mariejluis Gould Prothrombin time (PT) Coag time (PPP) 10.4 s Normal 9.0-11.6 [facility] Comment on above: Performed By: #### P T, PTT #### [facility] [address] [place] [address] Marie Bryanna Prothrombin time (PT) Coag time (PPP) PLEASE NOTE: NORMAL RANGE CHANGE 06-28-2014 DUE TO REAGENT LOT CHANGE Normal [facility] Comment on above: Performed By: #### P T, PTT #### [facility] [address] [place] [address] Marie Bryanna Prothrombin time (PT) Coag time (PPP) SEE BELOW Normal [facility] Comment on above: Result Comment: KARYL RED INR: 2.0 - 3.0 CONDITIONS NOT LISTED BELOW 2.5 - 3.5 FOR PROSTHETIC HEART VALVE REPLACEMENT 2.5 - 3.5 RECURRENT THROMBOSIS Performed By: #### P T, PTT #### [facility] [address] [place], [place] [address] Marie Gould PTTon 12-06-2018 aPTT Coag time (Bld) PLEASE NOTE: NORMAL RANGE CHANGE 09-04-2015 DUE TO REAGENT LOT CHANGE Normal [facility] Comment on above: Performed By: #### P T, PTT #### [facility] [address] [place], [place] [address] Marie Gould aPTT Coag time (Bld) 30.5 s Normal 22.3-36.2 [facility] Comment on above: Performed By: #### P T, PTT #### [facility] [address] [place] [id number] Marie Gould XR ANKLE LT MIN 3 Von 2018 XR ANKLE LT MIN [address] [place] [id number] Patient: [facility] Exam Date: 11/18/2018 : 1940 Gender:F Ordering : DARVIN RobertBetty NOLASCOLYDIA Admission #: [id number] Family : Order #: [id number] CLICK HERE TO VIEW EXAM RADIOLOGY REPORT [...] Balderas M.D. on 11/18/2018 at 15:26 Normal [facility] XR FOOT LT MIN 3 VIEWSon XR FOOT LT MIN [address] [place] [id number] Patient: [facility] Exam Date: 11/18/2018 : 1940 Gender:F Ordering : DARVIN HUTCHINS Admission #: [id number] Family : Order #: [id number] CLICK HERE TO VIEW EXAM RADIOLOGY REPORT [...] Balderas M.D. on 11/18/2018 at 15:25 Normal [facility] Vital Signs Date Time Vital Sign Value Performing Clinician Facility 09-20-2023 16:00-0500 Body height 160.02 cm Javier Usman Other [facility] Other 09-20-2023 16:00-0500 Body mass index (BMI) [Ratio] 26.04 kg/m2 Javier Usman Other [facility] Other 09-20-2023 16:00-0500 Body temperature 97.9 [degF] Javier Usman Other [facility] Other 09-20-2023 16:00-0500 Body weight 66.68 kg Javier Usman Other [facility] Other 09-20-2023 16:00-0500 Diastolic blood pressure 70 mm[Hg] Javier Usman Other [facility] Other 09-20-2023 16:00-0500 Respiratory rate 20 /min Javier Usman Other [facility] Other 09-20-2023 16:00-0500 SaO2% (BldA) [Mass fraction] 99 % Javier Usman Other [facility] Other 09-20-2023 16:00-0500 Systolic blood pressure 140 mm[Hg] Javier Usman Other [facility] Other 06-21-2023 10:45-0400 Body height 160.02 cm Javier Usman Other [facility] Other 06-21-2023 10:45-0400 Body mass index (BMI) [Ratio] 24.8 kg/m2 Javier Usman Other [facility] Other 06-21-2023 10:45-0400 Body temperature 96 [degF] Javier Usman Other [facility] Other 06-21-2023 10:45-0400 Body weight 63.5 kg Javier Usman Other [facility] Other 06-21-2023 10:45-0400 Diastolic blood pressure 82 mm[Hg] Javier Usman Other [facility] Other 06-21-2023 10:45-0400 Respiratory rate 20 /min Javier Usman Other [facility] Other 06-21-2023 10:45-0400 SaO2% (BldA) [Mass fraction] 97 % Javier Usman Other [facility] Other 06-21-2023 10:45-0400 Systolic blood pressure 116 mm[Hg] Javier Usman Other [facility] Other 06-02-2023 09:33-0400 Body height 162.56 cm Javier M Usman Work Phone: [facility] [employer] [address] DO Work Phone: 06-02-2023 09:33-0400 Body mass index (BMI) [Ratio] 24.55 kg/m2 Javier M Usman Work Phone: [facility] 600 DO Work Phone: 06-02-2023 09:33-0400 Body surface area Derived from formula 1.7 m2 Javier M Usman Work Phone: [facility] [employer] 600 DO Work Phone: 06-02-2023 09:33-0400 Body weight 64.86 kg Javier M Usman Work Phone: [facility] 600 DO Work Phone: 06-02-2023 09:33-0400 Diastolic blood pressure 70 mm[Hg] Javier M Usman Work Phone: [facility] [employer] 600 DO Work Phone: 06-02-2023 09:33-0400 Heart rate 60 /min Javier M Usman Work Phone: [facility] 600 DO Work Phone: 06-02-2023 09:33-0400 Systolic blood pressure 136 mm[Hg] Javier M Usman Work Phone: [facility] [address] DO Work Phone: 05-10-2023 13:30-0400 Body height 160.02 cm Javier Usman Other [facility] Other 05-10-2023 13:30-0400 Body mass index (BMI) [Ratio] 25.51 kg/m2 Javier Usman Other [facility] Other 05-10-2023 13:30-0400 Body temperature 97.7 [degF] Javier Usman Other [facility] Other 05-10-2023 13:30-0400 Body weight 65.32 kg Javier Usman Other [facility] Other 05-10-2023 13:30-0400 Diastolic blood pressure 58 mm[Hg] Javier Usman Other [facility] Other 05-10-2023 13:30-0400 Respiratory rate 20 /min Javier Usman Other [facility] Other 05-10-2023 13:30-0400 SaO2% (BldA) [Mass fraction] 94 % Javier Usman Other [facility] Other 05-10-2023 13:30-0400 Systolic blood pressure 110 mm[Hg] Javier Usman Other [facility] Other 04-21-2023 16:30-0400 Body height 160.02 cm Javier Usman Other [facility] Other 04-21-2023 16:30-0400 Body mass index (BMI) [Ratio] 26.21 kg/m2 Javier Usman Other [facility] Other 04-21-2023 16:30-0400 Body temperature 98 [degF] Javier Usman Other [facility] Other 04-21-2023 16:30-0400 Body weight 67.13 kg Javier Usman Other [facility] Other 04-21-2023 16:30-0400 Diastolic blood pressure 62 mm[Hg] Javier Usman Other [facility] Other 04-21-2023 16:30-0400 Respiratory rate 20 /min Javier Usman Other [facility] Other 04-21-2023 16:30-0400 SaO2% (BldA) [Mass fraction] 97 % Javier Usman Other [facility] Other 04-21-2023 16:30-0400 Systolic blood pressure 108 mm[Hg] Javier Usman Other [facility] Other 02-17-2023 14:12-0400 Blood Pressure Location Paul Cannony [facility] 02-17-2023 14:12-0400 Diastolic blood pressure 71 mm[Hg] Paul Lingmariaelenay [facility] 02-17-2023 14:12-0400 Heart rate 65 /min Paul Lingurany [facility] 02-17-2023 14:12-0400 SaO2% (BldA) [Mass fraction] 97 % Paul Sushilurany [facility] 02-17-2023 14:12-0400 Systolic blood pressure 152 mm[Hg] Paul Mourany [facility] 02-17-2023 13:47-0400 Blood Pressure Location Paul Mourany [facility] 02-17-2023 13:47-0400 Diastolic blood pressure 73 mm[Hg] Paul Mourany [facility] 02-17-2023 13:47-0400 Heart rate 63 /min Paul Mourany [facility] 02-17-2023 13:47-0400 SaO2% (BldA) [Mass fraction] 95 % Paul Mourany [facility] 02-17-2023 13:47-0400 Systolic blood pressure 157 mm[Hg] Paul Mourany [facility] 02-17-2023 11:57-0400 Heart rate 58 /min Paul Mourany [facility] 02-17-2023 11:57-0400 SaO2% (BldA) [Mass fraction] 94 % Paul Mourany [facility] 02-17-2023 11:56-0400 Diastolic blood pressure 78 mm[Hg] Paul Mourany [facility] 02-17-2023 11:56-0400 Mean blood pressure 99 mm[Hg] Paul Mourany [facility] 02-17-2023 11:56-0400 Systolic blood pressure 142 mm[Hg] Paul Mourany [facility] 02-17-2023 11:56-0400 Body temperature 96.8 [degF] Paul Mourany [facility] 02-17-2023 11:54-0400 Respiratory rate 16 /min Paul Mourany [facility] 01-11-2023 13:40-0400 Diastolic blood pressure 81 mm[Hg] Paul Mourany [facility] 01-11-2023 13:40-0400 Heart rate 71 /min Paul Lingurany [facility] 01-11-2023 13:40-0400 SaO2% (BldA) [Mass fraction] 98 % Paul Lingurany [facility] 01-11-2023 13:40-0400 Systolic blood pressure 158 mm[Hg] Paul Mourany [facility] 01-04-2023 10:34-0400 Blood Pressure Location Paul Mourany [facility] 01-04-2023 10:34-0400 Diastolic blood pressure 78 mm[Hg] Paul Lingurany [facility] 01-04-2023 10:34-0400 Heart rate 69 /min Paul Lingurany [facility] 01-04-2023 10:34-0400 SaO2% (BldA) [Mass fraction] 97 % Paul Lingurany [facility] 01-04-2023 10:34-0400 Systolic blood pressure 147 mm[Hg] Paul Mourany [facility] 12-28-2022 16:29-0400 Body temperature 98.42 [degF] Paul Puneet [facility] 12-28-2022 16:29-0400 Diastolic blood pressure 79 mm[Hg] Paul Puneet [facility] 12-28-2022 16:29-0400 Heart rate 81 /min Paul Puneet [facility] 12-28-2022 16:29-0400 Respiratory rate 18 /min Paul Teixeira [facility] 12-28-2022 16:29-0400 SaO2% (BldA) [Mass fraction] 99 % Paul Teixeira [facility] 12-28-2022 16:29-0400 Systolic blood pressure 151 mm[Hg] Paul Teixeira [facility] 11-30-2022 14:45-0500 Body height 160.02 cm Javier Usman Other [facility] Other 11-30-2022 14:45-0500 Body mass index (BMI) [Ratio] 26.92 kg/m2 Javier Usman Other [facility] Other 11-30-2022 14:45-0500 Body temperature 97.6 [degF] Javier Usman Other [facility] Other 11-30-2022 14:45-0500 Body weight 68.95 kg Javier Usman Other [facility] Other 11-30-2022 14:45-0500 Diastolic blood pressure 64 mm[Hg] Javier Usman Other [facility] Other 11-30-2022 14:45-0500 Respiratory rate 20 /min Javier Usman Other [facility] Other 11-30-2022 14:45-0500 SaO2% (BldA) [Mass fraction] 97 % Javier Usman Other [facility] Other 02-20-2023 14:45-0500 Systolic blood pressure 124 mm[Hg] Javier Usman Other [facility] [employer] Other 11-12-2022 11:47-0500 Body temperature 97.88 [degF] Sanjeev Johnston [facility] 11-12-2022 11:47-0500 Diastolic blood pressure 81 mm[Hg] Sanjeev Preston [facility] 11-12-2022 11:47-0500 Heart rate 72 /min Sanjeev Johnston [facility] 11-12-2022 11:47-0500 Respiratory rate 19 /min Sanjeev Johnston [facility] 11-12-2022 11:47-0500 SaO2% (BldA) [Mass fraction] 97 % Sanjeev Johnston [facility] 11-12-2022 11:47-0500 Systolic blood pressure 153 mm[Hg] Sanjeev Johnston [facility] 10-20-2022 11:14-0500 Diastolic blood pressure 62 mm[Hg] Javier M Usman Work Phone: [facility] [employer] [address] DO Work Phone: 10-20-2022 11:14-0500 Systolic blood pressure 135 mm[Hg] Javier M Usman Work Phone: [facility] [employer] [address] DO Work Phone: 10-20-2022 11:00-0500 Body height 162.56 cm Javier M Usman Work Phone: [facility] [employer] [address] DO Work Phone: 10-20-2022 11:00-0500 Body mass index (BMI) [Ratio] 25.23 kg/m2 Javier M Usman Work Phone: [facility] [email or web address] [address] DO Work Phone: 10-20-2022 11:00-0500 Body surface area Derived from formula 1.72 m2 Javier M Usman Work Phone: [facility] [email or web address] DO Work Phone: 10-20-2022 11:00-0500 Body weight 66.68 kg Javier M Usman [facility] Work Phone: 10-20-2022 11:00-0500 Heart rate 75 /min Javier M Usman Work Phone[facility] DO Work Phone: 10-20-2022 11:00-0500 Systolic blood pressure 140 mm[Hg] Javier M Usman Work Phone[facility] Work Phone: 09-15-2022 11:45-0500 Body height 160.02 cm Javier Usman Other [facility] Other 09-15-2022 11:45-0500 Body mass index (BMI) [Ratio] 27.45 kg/m2 Javier Usman Other [facility] Other 09-15-2022 11:45-0500 Body temperature 98.5 [degF] Javier Usman Other [facility] Other 09-15-2022 11:45-0500 Body weight 70.31 kg Javier Usman Other [facility] Other 09-15-2022 11:45-0500 Diastolic blood pressure 60 mm[Hg] Javier Usman Other [facility] [employer] Other 09-15-2022 11:45-0500 Respiratory rate 20 /min Javier Drapergles Other [facility] [employer] Other 09-15-2022 11:45-0500 SaO2% (BldA) [Mass fraction] 97 % Javiervincent Baileyes Other [facility] [employer] Other 09-15-2022 11:45-0500 Systolic blood pressure 126 mm[Hg] Javier Drapergles Other [facility] [employer] Other 05-11-2022 08:50-0400 Body temperature 97.7 [degF] Paul Teixeira [facility] 05-11-2022 08:50-0400 Diastolic blood pressure 75 mm[Hg] Paul Teixeira [facility] 05-11-2022 08:50-0400 Heart rate 71 /min Paul Teixeira [facility] 05-11-2022 08:50-0400 Respiratory rate 18 /min Paul Teixeira [facility] 05-11-2022 08:50-0400 SaO2% (BldA) [Mass fraction] 96 % Paul Teixeira [facility] 05-11-2022 08:50-0400 Systolic blood pressure 154 mm[Hg] Paul Teixeira [facility] 04-08-2022 10:58-0400 Body height 165.1 cm Javier Laine Mary Work Phone: [facility] 600 DO Work Phone: 04-08-2022 10:58-0400 Body mass index (BMI) [Ratio] 26.46 kg/m2 Javier Laine Usman Work Phone: [facility] 600 DO Work Phone: 04-08-2022 10:58-0400 Body surface area Derived from formula 1.79 m2 Javier M Usman Work Phone: [facility] [employer] [address] DO Work Phone: 04-08-2022 10:58-0400 Body weight 72.12 kg Javier M Usman Work Phone[facility] DO Work Phone: 04-08-2022 10:58-0400 Diastolic blood pressure 50 mm[Hg] Javier M Usman Work Phone: [facility] [employer] [address] DO Work Phone: 04-08-2022 10:58-0400 Heart rate 64 /min Javier M Usman Work Phone[facility] 600 DO Work Phone: 04-08-2022 10:58-0400 Systolic blood pressure 104 mm[Hg] Javier M Usman Work Phone: [facility] DO Work Phone: 03-16-2022 11:45-0400 Body height 160.02 cm Javier Usman Other [facility] [employer] Other 03-16-2022 11:45-0400 Body mass index (BMI) [Ratio] 29.23 kg/m2 Javier Usman Other [facility] Other 03-16-2022 11:45-0400 Body temperature 98.3 [degF] Javier Usman Other [facility] Other 03-16-2022 11:45-0400 Body weight 74.84 kg Javier Usman Other [facility] Other 03-16-2022 11:45-0400 Diastolic blood pressure 72 mm[Hg] Javier Usman Other [facility] Other 03-16-2022 11:45-0400 Respiratory rate 20 /min Javier Usman Other [facility] Other 03-16-2022 11:45-0400 SaO2% (BldA) [Mass fraction] 94 % Javier Usman Other [facility] Other 03-16-2022 11:45-0400 Systolic blood pressure 128 mm[Hg] Javier Usman Other [facility] Other 02-05-2022 12:15-0400 Body height 160.02 cm Javier Usman Other [facility] Other 02-05-2022 12:15-0400 Body mass index (BMI) [Ratio] 29.23 kg/m2 Javier Usman Other [facility] Other 02-05-2022 12:15-0400 Body temperature 98.7 [degF] Javier Usman Other [facility] Other 02-05-2022 12:15-0400 Body weight 74.84 kg Javier Usman Other [facility] Other 02-05-2022 12:15-0400 Diastolic blood pressure 62 mm[Hg] Javier Usman Other [facility] Other 02-05-2022 12:15-0400 Respiratory rate 20 /min Javier Usman Other [facility] Other 02-05-2022 12:15-0400 SaO2% (BldA) [Mass fraction] 95 % Javier Usman Other [facility] Other 02-05-2022 12:15-0400 Systolic blood pressure 122 mm[Hg] Javier Usman Other [facility] Other 01-31-2022 22:45-0400 Body temperature 98.6 [degF] Fletcher Livia [facility] 01-31-2022 22:45-0400 Diastolic blood pressure 68 mm[Hg] Fletcher Livia [facility] 01-31-2022 22:45-0400 Heart rate 80 /min Fletcher Livia [facility] 01-31-2022 22:45-0400 Mean blood pressure 87 mm[Hg] Fletcher Livia [facility] 01-31-2022 22:45-0400 Respiratory rate 17 /min Fletcher Livia [facility] 01-31-2022 22:45-0400 SaO2% (BldA) [Mass fraction] 99 % Fletcher Livia [facility] 01-31-2022 22:45-0400 Systolic blood pressure 125 mm[Hg] Fletcher Livia [facility] 01-31-2022 22:30-0400 Body temperature 98.24 [degF] Fletcher Livia [facility] 01-31-2022 22:30-0400 Diastolic blood pressure 80 mm[Hg] Fletcher Livia [facility] 01-31-2022 22:30-0400 Heart rate 76 /min Fletcher Livia [facility] 01-31-2022 22:30-0400 Mean blood pressure 93 mm[Hg] Fletcher Lviia [facility] 01-31-2022 22:30-0400 Respiratory rate 18 /min Fletcher Livia [facility] 01-31-2022 22:30-0400 SaO2% (BldA) [Mass fraction] 97 % Fletcher Livia [facility] 01-31-2022 22:30-0400 Systolic blood pressure 120 mm[Hg] Fletcher Livia [facility] 01-31-2022 22:15-0400 Body temperature 98.6 [degF] Fletcher Livia [facility] 01-31-2022 22:15-0400 Diastolic blood pressure 86 mm[Hg] Fletcher Livia [facility] 01-31-2022 22:15-0400 Heart rate 79 /min Fletcher Livia [facility] 01-31-2022 22:15-0400 Mean blood pressure 102 mm[Hg] Fletcher Livia [facility] 01-31-2022 22:15-0400 Respiratory rate 17 /min Fletcher Livia [facility] 01-31-2022 22:15-0400 SaO2% (BldA) [Mass fraction] 99 % Fletcher Livia [facility] 01-31-2022 22:15-0400 Systolic blood pressure 135 mm[Hg] Fletcher Livia [facility] 11-18-2021 09:02-0500 Diastolic blood pressure 82 mm[Hg] Javier M Usman Work Phone: [facility] 600 DO Work Phone: 11-18-2021 09:02-0500 Systolic blood pressure 133 mm[Hg] Javier M Usman Work Phone: [facility] 600 DO Work Phone: 11-18-2021 08:34-0500 Body height 154.94 cm Javier M Usman Work Phone: [facility] 600 DO Work Phone: 11-18-2021 08:34-0500 Body mass index (BMI) [Ratio] 32.27 kg/m2 Javier M Usman Work Phone: [facility] 600 DO Work Phone: 11-18-2021 08:34-0500 Body surface area Derived from formula 1.77 m2 Javier M Usman Work Phone: [facility] 600 DO Work Phone: 11-18-2021 08:34-0500 Body weight 77.47 kg Javier M Usman Work Phone: [facility] 600 DO Work Phone: 11-18-2021 08:34-0500 Diastolic blood pressure 78 mm[Hg] Javier M Usman Work Phone: [facility] 600 DO Work Phone: 11-18-2021 08:34-0500 Heart rate 79 /min Javier M Usman Work Phone: [facility] 600 DO Work Phone: 11-18-2021 08:34-0500 Systolic blood pressure 146 mm[Hg] Javier M Usman Work Phone: [facility] 600 DO Work Phone: 10-14-2021 13:46-0500 Body height 162.56 cm Javier M Usman Work Phone: [facility] 250 DO Work Phone: 10-14-2021 13:46-0500 Body mass index (BMI) [Ratio] 28.87 kg/m2 Javier M Usman Work Phone: [facility] 250 DO Work Phone: 10-14-2021 13:46-0500 Body surface area Derived from formula 1.82 m2 Javier M Usman Work Phone: [facility] 250 DO Work Phone: 10-14-2021 13:46-0500 Body weight 76.3 kg Javier M Usman Work Phone: [facility] 250 DO Work Phone: 10-14-2021 13:46-0500 Diastolic blood pressure 82 mm[Hg] Javier M Usman Work Phone: [facility] 250 DO Work Phone: 10-14-2021 13:46-0500 Heart rate 87 /min Javier M Usman Work Phone: [facility] 250 DO Work Phone: 10-14-2021 13:46-0500 Systolic blood pressure 136 mm[Hg] Javier M Usman Work Phone: [facility] 250 DO Work Phone: 09-24-2021 11:44-0500 Body height 162.56 cm Javier M Usman Work Phone: [facility] 600 DO Work Phone: 09-24-2021 11:44-0500 Body mass index (BMI) [Ratio] 28.86 kg/m2 Javier M Usman Work Phone: [facility] 600 DO Work Phone: 09-24-2021 11:44-0500 Body surface area Derived from formula 1.82 m2 Javier M Usman Work Phone: [facility] 600 DO Work Phone: 09-24-2021 11:44-0500 Body weight 76.26 kg Javier M Usman Work Phone: [facility] 600 DO Work Phone: 09-24-2021 11:44-0500 Diastolic blood pressure 90 mm[Hg] Javier M Usman Work Phone: [facility] 600 DO Work Phone: 09-24-2021 11:44-0500 Heart rate 95 /min [facility] Work Phone: 09-24-2021 11:44-0500 Systolic blood pressure 143 mm[Hg] [facility] Work Phone: 09-15-2021 12:15-0500 Body height 160.02 cm Javier Usman Other [facility] Other 09-15-2021 12:15-0500 Body mass index (BMI) [Ratio] 30.47 kg/m2 Javier Usman Other [facility] Other 09-15-2021 12:15-0500 Body temperature 99.2 [degF] Javier Usman Other [facility] Other 09-15-2021 12:15-0500 Body weight 78.02 kg Javier Usman Other [facility] Other 09-15-2021 12:15-0500 Diastolic blood pressure 60 mm[Hg] Javier Usman Other [facility] Other 09-15-2021 12:15-0500 Respiratory rate 20 /min Javier Usman Other [facility] Other 09-15-2021 12:15-0500 SaO2% (BldA) [Mass fraction] 97 % Javier Usman Other [facility] Other 09-15-2021 12:15-0500 Systolic blood pressure 104 mm[Hg] Javier Usman Other [facility] Other 08-25-2021 13:00-0500 Body height 160.02 cm Aaron Norwood Other [facility] Other 08-25-2021 13:00-0500 Body mass index (BMI) [Ratio] 24.8 kg/m2 Aaron Norwood Other [facility] Other 08-25-2021 13:00-0500 Body temperature 98.4 [degF] Aaron Norwood Other [facility] Other 08-25-2021 13:00-0500 Body weight 63.5 kg Aaron Norwood Other [facility] Other 08-25-2021 13:00-0500 Diastolic blood pressure 80 mm[Hg] Aaron Españarer Other [facility] Other 08-25-2021 13:00-0500 SaO2% (BldA) [Mass fraction] 97 % Aaron Norwood Other [facility] Other 08-25-2021 13:00-0500 Systolic blood pressure 142 mm[Hg] Aaron Españarer Other [facility] Other 08-19-2021 12:30-0500 Body height 160.02 cm Eva Tantaylor Other [facility] Other 08-19-2021 12:30-0500 Body mass index (BMI) [Ratio] 24.8 kg/m2 Eva Tantaylor Other [facility] Other 08-19-2021 12:30-0500 Body temperature 97.6 [degF] Eva Tantaylor Other [facility] Other 08-19-2021 12:30-0500 Body weight 63.5 kg Eva Tantaylor Other [facility] Other 08-19-2021 12:30-0500 Diastolic blood pressure 70 mm[Hg] Eva Denisse Other [facility] Other 08-19-2021 12:30-0500 SaO2% (BldA) [Mass fraction] 97 % Eva Denisse Other [facility] Other 08-19-2021 12:30-0500 Systolic blood pressure 126 mm[Hg] Eva Salcedo Other [employer] Other Encounters Encounter Date Encounter Type Care Provider Facility Start: 10-27-2023 End: 10-27-2023 ambulatory Javier Usman Other [facility] Other Start: 10-27-2023 Telephone encounter Javier Usman [facility] Start: 09-20-2023 End: 09-20-2023 ambulatory Javier Usman Other [facility] Other Start: 09-20-2023 Office outpatient vi sit 25 minutes Javier Usman [facility] Start: 08-05-2023 End: 08-05-2023 ambulatory Javier Usman Other [facility] Other Start: 08-05-2023 Telephone encounter Javier Usman [facility] Start: 08-02-2023 End: 08-02-2023 ambulatory Javier Usman Other [facility] Other Start: 08-02-2023 Telephone encounter Javier Usman [facility] Start: 06-28-2023 End: 06-28-2023 ambulatory Javier Usman Other [facility] Other Start: 06-28-2023 Telephone encounter Javier Usman [facility] Start: 06-21-2023 End: 06-21-2023 ambulatory Javier Usman Other [facility] Other Start: 06-21-2023 Office outpatient vi sit 15 minutes Javier Usman [facility] Start: 06-17-2023 Chart Update Javier Baileyes Work Phone: [facility] [address] [place] Work Phone: Start: 06-17-2023 Telephone encounter Javier [facility] Start: 06-17-[address] Javier Mary Facility: Start: 06-17-2023 End: 06-18-2023 ambulatory Mourhaf Traboulssi Facility:[facility] Start: 06-17-2023 End: 06-17-2023 [facility] Start: 06-05-2023 End: 06-06-2023 ambulatory Mourhaf Traboulssi Facility:[facility] Start: 06-05-2023 End: 06-05-2023 Patient encounter procedure Mojohanna Rockwelli [facility] Start: 06-02-2023 Office outpatient vi sit 25 minutes Javier Laine Usman Work Phone: [facility] 600 DO Work Phone: Start: 06-02-[address] Javier Mary Facility: Start: 05-10-2023 End: 05-10-2023 ambulatory Javiervincent DraperUsman Other [facility] [employer] Other Start: 05-10-2023 Office outpatient vi sit 15 minutes Javier Usman [facility] Start: 05-10-2023 Telephone encounter Javier Usman [facility] Start: 04-24-2023 End: 04-25-2023 ambulatory JAVIER Laine USMAN Facility:[facility] Start: 04-24-2023 End: 04-24-2023 Patient encounter procedure JAVIER Laine DRAPERUSMAN [facility] Start: 04-21-2023 End: 04-21-2023 ambulatory Javier Usman Other [facility] Other Start: 04-21-2023 Office outpatient vi sit 25 minutes Javier Usman [facility] Start: 04-21-2023 Telephone encounter Javier Usman [facility] Start: 04-06-2023 End: 04-06-2023 ambulatory Javier Usman Other [facility] Other Start: 04-06-2023 Telephone encounter Javier Usman [facility] Start: 04-02-2023 End: 04-03-2023 ambulatory Jes Wolff Facility:[id number] Start: 04-02-2023 End: 04-02-2023 Off-Site [facility] Start: 03-23-2023 End: 03-24-2023 ambulatory Aaron HOLLIDAY Facility:CD:[id number] Start: 03-22-2023 End: 04-03-2023 ambulatory Aaron HOLLIDAY Facility:[facility] Start: 03-22-2023 End: 04-03-2023 Evaluation and management of inpatient Aaron HOLLIDAY [facility] Start: 03-20-2023 End: 03-22-2023 ambulatory Jag CARVER Facility:[facility] Start: 03-01-2023 End: 03-02-2023 ambulatory Paul Gomez Facility:[facility] Start: 02-17-2023 End: 02-17-2023 ambulatory Paul Gomez Facility:[facility] Start: 02-17-2023 End: 02-17-2023 Admission to same day surgery center Paul Gomez [facility] Start: 01-20-2023 End: 01-20-2023 ambulatory Javier Usman Other [facility] Other Start: 01-20-2023 Telephone encounter Javier [facility] Start: 01-11-2023 End: 01-12-2023 ambulatory Paul Cannony Facility:[facility] Start: 01-11-2023 End: 01-11-2023 Patient encounter procedure Paul Gomez [facility] Start: 01-05-2023 End: 01-05-2023 ambulatory Javier Usman Other [facility] [employer] Other Start: 01-05-2023 Telephone encounter Javier Usman [facility] Start: 01-04-2023 End: 01-05-2023 ambulatory Paul Gomez Facility:[facility] Start: 01-04-2023 End: 01-05-2023 ambulatory Paul Gomez Facility:[facility] Start: 01-04-2023 End: 01-04-2023 Lab Drop off Paul Gomez [facility] [place] Start: 01-04-2023 End: 01-09-2023 Pre-admission assessment Paul Gomez [facility] [place] Start: 01-04-2023 End: 01-04-2023 Patient encounter procedure Paul Gomez [facility] Start: 12-28-2022 End: 12-28-2022 Emergency department patient visit Paul Puneet Facility:[facility] Start: 12-28-2022 End: 12-28-2022 Emergency department patient visit Paul Funke [facility] [place] Start: 12-28-2022 End: 12-28-2022 ambulatory Javier Usman Other [employer] Other Start: 12-28-2022 Telephone encounter Javier Usman [facility] Start: 12-05-2022 End: 12-05-2022 Emergency department patient visit Bruno Dowell Facility:[facility] Start: 12-04-2022 End: 12-04-2022 ambulatory Javier Usman Other [employer] Other Start: 12-04-2022 Telephone encounter Javier Usman [facility] Start: 11-30-2022 End: 11-30-2022 ambulatory Javier Usman Other [employer] Other Start: 11-30-2022 Office outpatient vi sit 25 minutes Javier Usman [facility] Start: 11-30-2022 Telephone encounter Jvaier Usman [facility] Start: 11-17-2022 End: 11-17-2022 ambulatory Javier Usman Other [employer] Other Start: 11-17-2022 Telephone encounter Javier Usman [facility] Start: 11-12-2022 End: 11-12-2022 ambulatory Javier Usman Other [employer] Other Start: 11-12-2022 Telephone encounter Javier Usman [facility] Start: 11-12-2022 End: 11-12-2022 Emergency department patient visit Sanjeev Johnston Facility:[facility] Start: 11-12-2022 End: 11-12-2022 Emergency department patient visit Sanjeev Johnston [facility] [place] Start: 10-29-2022 End: 10-29-2022 ambulatory Javier Usman Other [employer] Other Start: 10-29-2022 Telephone encounter Javier Usman [facility] Start: 10-21-2022 AUDIT Javier M Usman Work Phone: [facility] 250 DO Work Phone: Start: 10-20-2022 Office outpatient vi sit 25 minutes Javier M Usman Work Phone: [facility] 600 DO Work Phone: Start: 10-20-[address] Jones Cuba Facility:[id number] Start: 10-05-2022 Chart Update Javier M Usman Work Phone: [facility] 600 DO Work Phone: Start: 09-28-2022 End: 09-29-2022 ambulatory Jones Cuba Facility:[facility] Start: 09-28-2022 End: 09-28-2022 Patient encounter procedure Jones Cuba [facility] [place] Start: 09-15-2022 Rx Renewal Javier M Usman Work Phone: [facility] 250 DO Work Phone: Start: 09-15-2022 End: 09-15-2022 ambulatory Javier Usman Other [employer] Other Start: 09-15-2022 Office outpatient vi sit 25 minutes Javier Usman [facility] Start: 08-06-2022 Patient encounter procedure Javier M Usman Work Phone: [facility] 250 DO Work Phone: Start: 07-28-2022 End: 07-28-2022 ambulatory Javier Usman Other [employer] Other Start: 07-28-2022 Telephone encounter Javier Usman [facility] Start: 05-26-2022 End: 05-26-2022 ambulatory Javier Usman Other [employer] Other Start: 05-26-2022 Telephone encounter Javier Usman [facility] Start: 05-11-2022 End: 05-11-2022 Emergency department patient visit Paul Teixeira [facility] [place] Start: 04-21-2022 End: 04-21-2022 ambulatory Javier Usman Other [employer] Other Start: 04-21-2022 Telephone encounter Javier Usman [facility] Start: 04-08-2022 Office outpatient vi sit 25 minutes Javier M Usman Work Phone: [facility] 600 DO Work Phone: Start: 03-16-2022 End: 03-16-2022 ambulatory Javier Usman Other [employer] Other Start: 03-16-2022 Patient encounter procedure Javier Usman [facility] Start: 03-16-2022 Telephone encounter Javier Usman [facility] Start: 02-05-2022 End: 02-05-2022 ambulatory Javier Usman Other [employer] Other Start: 02-05-2022 Office outpatient vi sit 15 minutes Javier Usman [facility] Start: 01-31-2022 End: 01-31-2022 Emergency department patient visit Fletcher Bhakta [facility] [place] Start: 01-08-2022 End: 01-08-2022 ambulatory Javier Usman Other [employer] Other Start: 01-08-2022 Telephone encounter Javier Usman [facility] Start: 01-01-2022 End: 01-01-2022 ambulatory Javier Usman Other [employer] Other Start: 01-01-2022 Telephone encounter Javier Usman [facility] Start: 12-26-2021 End: 12-26-2021 ambulatory Javier Usman Other [employer] Other Start: 12-26-2021 Telephone encounter Javier Usman [facility] Start: 12-01-2021 End: 12-01-2021 ambulatory Javier Usman Other [employer] Other Start: 12-01-2021 Telephone encounter Javier Usman [facility] Start: 12-01-2021 Rx Renewal Javier M Suman Work Phone: [facility] 250 DO Work Phone: Start: 11-18-2021 Office outpatient vi sit 25 minutes Javier M Usman Work Phone: [facility] 600 DO Work Phone: Start: 10-29-2021 Chart Update Javier M Usman Work Phone: [facility] 250 DO Work Phone: Start: 10-29-2021 End: 10-29-2021 ambulatory Javier M. Usman Facility:[facility] Start: 10-15-2021 Telephone encounter Javier M Rug gles Work Phone: [facility] 250 DO Work Phone: Start: 09-24-2021 Office outpatient vi sit 25 minutes Javier M Usman Work Phone: [facility] 600 DO Work Phone: Start: 09-19-2021 Telephone encounter Javier M Rug gles Work Phone: [facility] [address] [place] Work Phone: Start: 09-18-2021 End: 09-18-2021 ambulatory Javier Usman Other [employer] Other Start: 09-18-2021 Telephone encounter Javier Usman [facility] Start: 09-16-2021 End: 09-16-2021 ambulatory Javier Usman Other [employer] Other Start: 09-16-2021 Telephone encounter Javier Usman [facility] Start: 09-15-2021 End: 09-15-2021 ambulatory Javier Usman Other [employer] Other Start: 09-15-2021 Office outpatient vi sit 25 minutes Javier Usman [facility] Start: 09-15-2021 Telephone encounter Javier Usman [facility] Start: 08-25-2021 End: 08-25-2021 ambulatory Aaron Norwood Other [employer] Other Start: 08-25-2021 Office outpatient vi sit 15 minutes Aaron Norwood [facility] Start: 08-21-2021 End: 08-21-2021 ambulatory Eva Salcedo Other [employer] Other Start: 08-21-2021 Telephone encounter Eva [facility] [employer] Start: 08-19-2021 End: 08-19-2021 ambulatory Eva Salcedo Other [facility] [employer] Other Start: 08-19-2021 Office outpatient vi sit 15 minutes Eva ASHLEY [facility] Start: 12-13-2018 End: 12-19-2018 Patient encounter procedure JAVIER MARY Facility:[facility] Start: 12-08-2018 Encounter for preprocedural cardiovascular examination [facility] Start: 12-08-2018 Encounter for preprocedural laboratory examination [facility] Start: 12-06-2018 End: 12-07-2018 Patient encounter procedure DARVIN [facility]UNDERSEN [facility] Facility:[facility] Start: 11-18-2018 End: 11-19-2018 Patient encounter procedure DARVIN [facility]ERS[facility] Facility:[facility]1 Encounter for preprocedural laboratory examination [facility] Patient encounter status Javier Mary Work Phone: [facility] [place] 250 DO Work Phone: Procedures Date Procedure Procedure Detail Performing Clinician Start: 02-17-2023 Excision of cyst Paul Jang ewelina Start: 12-03-2020 Echocardiography Start: 07-06-2019 Repair of hip Fletcher Whit ener Comment on above: left, bipolar Start: 02-19-2014 right carpal tunnel release Fletcher Livia Start: 03-22-2004 BONE SPURS FOOT 2 Fletcher Livia Comment on above: bilateral AAA repair Fletcher Livia achilles tendeon repair 3 No ah Livia Comment on above: left Arthroplasty of knee Javier Drapergles Work Phone: Comment on above: Left; Arthroplasty of knee Fletcher Wh itener Colonoscopy Fletcher Livia EXCISION CYST OF LEG Fletcher Wh itener H/O: artificial heart valve Fletcher Livia History of Aortic Va lve Replacement Javier Usman History of CABG Javier Usman Comment on above: x 3; History of coronary artery bypass grafting S/P CABG x 3 Javier M Usman Work Phone: History of coronary artery bypass grafting Hx of CABG Jes Wolff Ligation of varicose vein Se th Usman Work Phone: open heart 4 Fletcher [...] Jones Cuba, Status: Pen, Time: 10:10 AM [facility] 600 DO Work Phone: Start: 04-08-2023 FUV, Provider: Jones Cuba, Status: Pen, Time: 11:10 AM FUV, Provider: Jones Cuba, Status: Pen, Time: 11:10 AM [facility] 600 DO Work Phone: Start: 04-01-2023 FUV, Provider: Jones Cuba, Status: Pen, Time: 11:10 AM FUV, Provider: Jones Cuba, Status: Pen, Time: 11:10 AM [facility] 250 DO Work Phone: Start: 10-20-2022 FUV, Provider: Jones Cuba, Status: Pen, Time: 11:00 AM FUV, Provider: Jones Cuba, Status: Pen, Time: 11:00 AM [facility] 600 DO Work Phone: Start: 04-08-2022 FUV, Provider: Jones Cuba, Status: Pen, Time: 10:30 AM FUV, Provider: Jones Cuba, Status: Pen, Time: 10:30 AM [facility] 600 DO Work Phone: Start: 11-18-2021 FUV, Provider: Jones Cuba, Status: Pen, Time: 8:50 AM FUV, Provider: Jones Cuba, Status: Pen, Time: 8:50 AM [facility] [address] [place] Work Phone: Start: 10-29-2021 SURGNONUH, Provider: Jones Cuba, Status: Pen, Time: 10:00 AM [facility], Provider: Jones Cuba, Status: Pen, Time: 10:00 AM [facility] 250 DO Work Phone: Start: 10-14-2021 EKG, Provider: SHIRA COREY STRAIGHTENER HAND 1,[id number], Status: Pen, Time: 1:30 PM EKG, Provider: SHIRA COREY STRAIGHTENER HAND 1,[id number], Status: Pen, Time: 1:30 PM [facility] 600 DO Work Phone: Start: 09-24-2021 FUV, Provider: Jones Cuba, Status: Pen, Time: 11:00 AM FUV, Provider: Jones Cuba, Status: Pen, Time: 11:00 AM [facility] [address] [place] Work Phone: Immunizations Immunization Date Immunization Notes Care Provider Magalis navarro 08-19-2023 influenza, injectabl e, quadrivalent, contains preservative Javier Usman Other [facility] [employer] Other 08-01-2022 influenza virus vaccine, unspecified formulation Paul Gomez [facility] 01-31-2022 tetanus toxoid, redu neal diphtheria toxoid, and acellular pertussis vaccine, adsorbed; Translations: [Boostrix (Tdap)] Fletcher Bhakta [facility] 07-24-2021 Do not use COVID-19 Pfizer 2 dose Javier Usman Other [facility] 07-24-2021 Fluzone High-Dose Quadrivalent 0.7 ML Intramuscular Suspension Prefilled Syringe Javier M Usman Work Phone: [facility] 600 DO Work Phone: 07-24-2021 influenza virus vaccine, unspecified formulation Paul Davisagus [facility] 07-24-2021 influenza, injectabl e, quadrivalent, contains preservative Javier Usman Other [facility] [employer] Other 12-06-2020 Do not use COVID-19 Pfizer 2 dose Javier Usman Other [facility] Comment on above: Result Comment: 2022: [id number] 11-14-2020 Pfizer-BioNTech COVID-19 Vacc 30 MCG/0.3ML Intramuscular Suspension Javier M Usman Work Phone: [facility] 600 DO Work Phone: 11-13-2020 Do not use COVID-19 Pfizer 2 dose Javier Usman Other [facility] Comment on above: Result Comment: 2022: [id number] 08-11-2020 influenza virus vaccine, unspecified formulation Paul Davisagus [facility] 08-11-2020 influenza, high dose seasonal, preservative-free Javier M Usman Work Phone: [facility] 600 DO Work Phone: 08-07-2020 influenza virus vaccine, unspecified formulation Paul Gomez [facility] 08-07-2020 influenza, injectabl e, quadrivalent, contains preservative Eva Ruttino Other [employer] Other 08-14-2019 pneumococcal polysaccharide vaccine, 23 valent Eva Ruttino Other [facility] 07-14-2019 influenza virus vaccine, unspecified formulation Paul Lingmariaelenaagus [facility] 07-14-2019 influenza, injectabl e, quadrivalent, contains preservative Eva Ruttino Other [employer] Other 06-11-2019 influenza virus vaccine, unspecified formulation Javier M Usman Work Phone: [facility] 06-22-2018 influenza virus vaccine, unspecified formulation Paul Lingmariaelenaagus [facility] 06-22-2018 influenza, seasonal, injectable Eva Ruttino Other [employer] Other 06-11-2018 influenza virus vaccine, unspecified formulation Javier M Usman Work Phone: [facility] 600 DO Work Phone: 08-11-2017 pneumococcal conjuga te vaccine, 13 valent Javier M Usman Work Phone: [facility] 600 DO Work Phone: 07-11-2017 influenza, high dose seasonal, preservative-free Javier M Usman Work Phone: [facility] 600 DO Work Phone: 07-09-2017 influenza, seasonal, injectable Eva Bakero Other [facility] [employer] Other 07-09-2017 influenza virus vaccine, unspecified formulation Paul Gomez [facility] 08-15-2016 pneumococcal conjuga te vaccine, 13 valent Eva Ruttino Other [facility] 07-11-2016 influenza virus vaccine, unspecified formulation Javier M Usman Work Phone: [facility] 600 DO Work Phone: 11-11-2015 influenza virus vaccine, unspecified formulation Paul Gomez [facility] 11-11-2015 influenza, injectabl e, quadrivalent, preservative free Javier M Usman Work Phone: [facility] 600 DO Work Phone: 11-11-2015 influenza, injectabl e, quadrivalent, contains preservative Eva Ruttino Other [facility] [employer] Other 09-04-2015 influenza virus vaccine, unspecified formulation Paul Gomez [facility] 09-04-2015 influenza, injectabl e, quadrivalent, preservative free Javier M Usman Work Phone: [facility] 600 DO Work Phone: 09-04-2015 influenza, injectabl e, quadrivalent, contains preservative Eva Tantaylor Other [facility] [employer] Other 07-11-2015 influenza virus vaccine, unspecified formulation Javier Jang Usman Work Phone: -[facility] 600 DO Work Phone: Payers Date Payer Category Payer Private Health Insurance [id number] 2021 Medicare [id number] 2. [id number] 2021 Self-pay 1959 Medicare [id number] 1940 Unknown [id number] 2.16.84 [id number] 1940 Unknown [id number] 2.16.84 0.1.560533.3.579.2.593 1940 Unknown [id number] 2.16.84 0.1.412855.3.579.2.593 1942 Unknown [id number] 2.16.8 40.1.803140.3.579.2.727 1942 Unknown [id number] 2.16.8 40.1.164945.3.579.2.727 1942 Unknown [id number] 2.16.8 40.1.014008.3.579.2.727 1942 Unknown [id number] 2.16.8 40.1.392411.3.579.2.727 1942 Unknown [id number] 2.16.8 40.1.401062.3.579.2.727 1942 Unknown [id number] 2.16.8 40.1.175441.3.579.2.727 1942 Unknown [id number] 2.16.8 40.1.219820.3.579.2.727 1942 Unknown [id number] 2.16.8 40.1.108317.3.579.2.727 1942 Unknown [id number] 2.16.8 40.1.626502.3.579.2.727 1942 Unknown [id number] 2.16.8 40.1.492214.3.579.2.727 1942 Unknown [id number] 2.16.8 40.1.566165.3.579.2.727 1942 Unknown [id number] 2.16.8 40.1.479710.3.579.2.727 1942 Unknown [id number] 2.16.8 40.1.882687.3.579.2.727 1942 Unknown [id number] 2.16.8 40.1.043911.3.579.2.727 1942 Unknown [id number] 2.16.8 40.1.642837.3.579.2.727 1942 Unknown [id number] 2.16.8 40.1.071872.3.579.2.727 1942 Unknown [id number] 2.16. 840.1.665308.3.579.2.356 1942 Unknown [id number] 2.16. 840.1.365650.3.579.2.356 1942 Unknown [id number] 2.16. 840.1.258145.3.579.2.356 Medicare [id number] 2.1 6.840.1.039307.19 Unknown Unknown [id number] 2.16.8 40.1.552971.3.579.2.531 Social History Date Type Detail Facility Former smoker Former smoker -[facility] [address] [place] Work Phone: Comment on above: Quit over 20 years a go.; 1-2 cups coffee brendan y; Start: 04-04-2021 End: 01-04-2023 Tobacco smoking status Ex-smoker (finding) [facility] Sex Assigned At Female [facility] [employer] Other Tobacco [facility] Comment on above: denies Tobacco smoking status No Smoking Status Entered [facility] NEGATED: Highlighted row - - [facility] Work Phone: Functional Status Date Assessment Result Facility 02-17-2023 Functional Status N/A [facility] 01-04-2023 Functional Status N/A [facility] 12-28-2022 Functional Status N/A [facility] 11-12-2022 Functional Status N/A [facility] 05-11-2022 Functional Status N/A [facility] NEGATED: Highlighted row Functional performance Functional status health issues are not documented Disease [facility] Work Phone: Mental Status Date Assessment Result Facility NEGATED: Highlighted row Cognitive function [Interpretation] Cognitive status health issues are not documented Disease [facility] Work Phone: Clinical Notes 08-25-2021 to [...] continue to follow-up with the vascular/vein specialist. [facility] [employer] Other 09-18-2023 Evaluation note* Encounter Date Diagnosis Assessment Notes Treatment Notes Treatment Clinical Notes Jun, Essential (primary) hypertension (ICD-10 - I10) [facility] Other 09-11-2023 Evaluation note* Encounter Date Diagnosis Assessment Notes Treatment Notes Treatment Clinical Notes Jun, Hematoma of left lower leg (ICD-10 - S80.12XA) Discussed with patient and son-in-law that I feel we will just simply continue to monitor as hematomas will be reabsorbed slowly by the body. I think we merely keep this well covered, to prevent any further bumping. Call with results. [facility] Other 09-07-2023 NoteEchocardiology Procedure Exam Date/Time Accession # Ordering Echo Transthoracic 06/17/2023 10:09 EDT [id number] Jones Cuba MD Complete CPT code 52281 Reason for Exam (Echo Transthoracic Complete) I35.0 Report [facility] [address] [place] [address] Adult Echocardiogram Report Name: [facility] Study Date: 06/17/2023 09:16 AM BP: 148/68 mmHg Patient Location: [facility] HR: 55 : 1940 Gender: Female Height: 64 in Age: 82 yrs Ethnicity: [facility] Weight: 143 lb Reason For Study: I35.0 BSA: 1.7 m2 History: AAA, Afib, murmur, HTN, CABG, AVR porcine Ordering Physician: Deonte Referring Physician: Jones Cuba Performed By: Gracie Martinez, [facility] Interpretation Summary The left ventricle is normal [...] Signed by: Ricardo Salamanca MD Transcribed by: MA Technologist: [facility]07-31-2023 Evaluation note* Encounter Date Diagnosis Assessment Notes Treatment Notes Treatment Clinical Notes Apr, Skin tear of right hand without complication, initial encounter (ICD-10 - S61.411A) Patient and son-in-law are given some Vaseline gauze to use. Keep this area clean and dry. Monitor for healing. Call with any change. [facility] Other 07-15-2023 Evaluation + Plan note Diagnostic Tests Pending * Folate Level 04/24/23 * T3 Free 04/24/23 * Vitamin B12 Level 04/24/23 [facility]07-12-2023 Evaluation note* Encounter Date Diagnosis Assessment Notes [...] dose accordingly. They will call with results. [facility] Other 06-13-2023 NoteHOSPITAL REGULATIONS: All Positive and [...] unable to move. She was brought to [facility] where she is found to have [...] this fracture pattern. Kaitlyn Menard Dictated: 03/21/2023 [id number] Transcribed: 03/22/2023 cc:Javier Mary D.O.[facility] HospitalComment on above:Result Comment: Electronically Signed By: Marquise Mesa DO\.br\Date and Time Signed: 03/23/23 06:51 [id number] NoteDAILY PROGRESS NOTE: 03/22/2023 HISTORY: Chani is seen here today for repeat evaluation of her left hemipelvic fractures. She is doing okay, no new complaints, no new symptomatology. Physical therapy did work with her yesterday and ambulated six feet with a front-wheeled walker. She has three steps at home. Recommendation for longterm is made. Her examination here today reveals [...] from the periphery. 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) No chest [...] 65.9 % Lymph Auto - 22.4 % Nelson Auto - 9.3 % Eos Auto - 1.6 % Basophil Auto - 0.8 % Neutro Absolute - 3.5 E9/L Lymph Absolute - 1.2 E9/L Nelson Absolute - 0.5 E9/L Eos Absolute - 0.1 E9/L Basophil Absolute - 0.0 E9/L [facility] (03/21/2023) Glucose Lvl - 112 mg/dL BUN - 30 mg/dL Creatinine - 0.8 mg/dL BUN/Creat Ratio - 38 Sodium Lvl - 142 mmol/L Potassium Lvl - 3.6 mmol/L Chloride - 111 mmol/L CO2 - 28 mmol/L AGAP - 7 mEq/L Calcium Lvl - 9.4 mg/dL [facility] (03/20/2023) Glucose Lvl - 104 mg/dL BUN [...] 6.7 gm/dL Albumin Lvl (more content not included)...[facility] HospitalComment on above:Result Comment: Electronically Signed By: Silvia MURCIA MD\.meme\Date and Time Signed: 03/22/23 13:[id number] NoteCRM entered the room to discuss dc planing. PCP, DME and insurance discussed. Patient is alert and involved in plan of care. Contact information provided and whiteboard updated. Pt's dtr will transport. Pt has been accepted to [facility], pending precert. No further needs. Ant dc TBD. CRM to follow. Precert came through. Pt will dc to room 603, now TCU.[facility] HospitalComment on above:Result Comment: Electronically Signed By: Luanne Maddox\Date and Time Signed: 03/22/23 12:43 [id number] NotePT evaluation completed with an AM-PAC six [...] continue to follow daily and make appropriate recommendations.[facility]06-11-2023 NoteChief Complaint Watering lawn and slipped on wet grass and fell. Denies feeling illl prior. (L) hip pain. Hit back on head on ground, no LOC. On Eliquis. Able to bear weight, but painful. History of Present Illness [id number] patient is a very pleasant active 82-year-old [...] the bedside suggest that Dr. Cuba the brick molder hand with whom she had an appointment within 2 weeks had found this and that it was between her lungs . Yovani describing thoracic aortic aneurysm she is suggested [...] and superior pubic ramus fracture. The emergency department editor orthopedic service was consulted and the case [...] kyphosis. scoliosis. Extremities: no (more content not included)...[facility] HospitalComment on above:Result Comment: Electronically Signed By: Jag CARVER DO\Date and Time Signed: 03/21/23 03:47 [id number] Note [id number]:127[facility] 02-17-2023 Hospital Discharge instructions Patient Education 02/17/2023 [...] and water are not available, use hand educational technology specialist. ?Change your dressing as told by your [...] to take sponge baths. General instructions Take prof-mzc-[id number] and prescription medicines only as told by [...] dressing. Your wound opens up. Summary Take fjvw-nzk-[id number] and prescription medicines only as told by [...] provider. Document Revised: 04/28/2022 Document Reviewed: 04/28/2022 [employer] Patient Education 2022 [employer]. Follow Up Care 01/13/2023 08:38:17 With:Paul Gomez Address: [address] [address]- [phone] Business (1) When:02/27/2023 14:24:06 Comments:Call for followup appointment [facility]04-12-2023 Evaluation note* Encounter Date Diagnosis Assessment Notes Treatment Notes Treatment Clinical Notes Jan, Dysfunction of both eustachian tubes (ICD-10 - H69.83) Collaaj Other 04-11-2023 Note [id number]:127[facility] 01-13-2023 NoteMicrobiology PROCEDURE: Wound Culture [R1] SOURCE: Abscess BODY SITE: Breast COLLECTED DATE/TIME: 01/04/2023 11:52 EDT RECEIVED DATE/TIME: 01/04/2023 14:37 EDT START DATE/TIME: 01/04/2023 14:37 EDT FREE TEXT SOURCE: Ptaricia GUILLEN, Paul Gomez MD, Paul Walker AMENDED REPORTS Amended Report [] Verified Date/Time: 01/13/2023 15:17 EDT 1+ Peptostreptococcus species Presumptive isolated. No standards available for susceptibility testing on this organism. STAINS Gram Stain Report [] Verified Date/Time: 01/05/2023 07:06 EDT Occasional White Blood Cells Occasional epithelial cells Rare Gram Positive Cocci Performing Locations R1: This test was performed at: [facility], [address] [place] [address], [id number], [facility]hcC[facility] Luther[facility] HospitalComment on above:Performed By: #### [id number], [id number], [id number], [id number] #### [facility] [address] [place] [address] [id number] Hospital Discharge instructions Patient Education 01/11/2023 14:09:30 [...] ?Hypothyroidism. ?Polycystic ovarian syndrome (PCOS). ?Binge-eating disorder. ?Hickman syndrome. Taking certain medicines, such as steroids, [...] food choices, such as grocery stores and [employer]. What are the signs or symptoms? The [...] and how much exercise you get. Take dqqu-fev-bjrhwhj and prescription medicines only as told by [...] 11/04/2005 Document Revised: 06/01/2019 Document Reviewed: 06/01/2019 [employer] Patient Education 2019 [employer]. [facility] [place] [phone] Hospital Discharge instructions Patient Education 12/28/2022 16:45:02 [...] Follow these instructions at home: Medicines Take pdqg-lys-hdxoeaq and prescription medicines only as told by [...] soap and water arenot available, use hand educational technology specialist. Check your abscess every day for signs [...] 07/07/2006 Document Revised: 01/18/2020 Document Reviewed: 11/10/2018 [employer] Patient Education 2020 [employer]. Follow Up Care 12/28/2022 16:23:36 With:Dae LANDAVERDE Address: [address], [facility] [address] [facility] [address] [place] [address]- Business (1) When:12/31/2022 16:44:46 Comments:Follow-up for evaluation and treatment of breast abscess With:JAVIER MARY Address: [address] [address]- Business (1) When:Within 3 Day(s) [facility]02-20-2023 Evaluation note* Encounter Date Diagnosis Assessment Notes [...] that she can only really use the tnls-hlz-lumgugv Coricidin. Call with results. Nov, Constipation, unspecified constipation type (ICD-10 - K59.00) Lengthy discussion with patient and daughter today that certainly she could try the uhvo-nqq-lhsytnr Colace or the iwhj-zfx-narrimg MiraLAX, as this is something that they also purchased. I feel she would be best served by trying to take a half a cap every day Nov, Nasal congestion (ICD-10 - R09.81) Nmet-ucx-jhaulnp Coricidin is fine. Patient to call if no improvement seen. Collaaj Other 02-20-2023 Evaluation note* Encounter Date Diagnosis Assessment Notes Treatment Notes Treatment Clinical Notes Nov, Pure hypercholestero lemia (ICD-10 - E78.00) Nov, Essential (primary) hypertension (ICD-10 - I10) Collaaj Other 02-02-2023 Hospital Discharge instructions Patient Education [...] Follow these instructions at home: Medicines Take eade-iui-wnpgpir and prescription medicines only as told by [...] such as antibiotic medicines or antihistamines. Take vtah-grh-cwegdxr and prescription medicines only as told by [...] 07/07/2006 Document Revised: 02/16/2019 Document Reviewed: 02/16/2019 [employer] Patient Education 2020 [employer] Follow Up Care 11/12/2022 11:41:12 With:JAVIER MARY Address: [facility] [address] [address] Business (1) When:11/15/2022 13:03:01 [facility]02-02-2023 Evaluation + Plan noteExtracted from: Title:ED Note Author:Clyde Alas PA-C te:11/12/22 Cellulitis (L03.90: Cellulit is, unspecified) Wrist pain (M25.539: Pain in unspecified wrist) Orders: cephalexin, 500 mg = 1 cap(s), Oral, TID, Take one capsule by mouth three times a day for ten days, # 30 cap(s), Refills(s) 0, Pharmacy: [facility], 165, cm, 11/12/22 11:52:00 EST, Height/Length Dosing, 69, kg, 11/12/22 11:52:00 EST, Weight Dosing Splint Application Wrist XR Wrist 3+ Views Right [facility]12-06-2022 Evaluation note* Encounter Date Diagnosis Assessment Notes [...] and understanding. She will call with update. Collaaj Other 10-18-2022 Evaluation note* Encounter Date Diagnosis Assessment Notes Treatment Notes Treatment Clinical Notes Jul, Essential (primary) hypertension (ICD-10 - I10) Collaaj Other 08-01-2022 Evaluation + Plan noteExtracted from: [...] Right XR Knee Complete 4+ Views Right [facility]08-01-2022 Hospital Discharge instructions Patient Education 05/11/2022 10:39:55 [...] 07/07/2006 Document Revised: 11/23/2019 Document Reviewed: 10/20/2017 [employer] Patient Education 2020 [employer]. 05/11/2022 10:39:55 [place] Cyst [place] Cyst A [...] your health care provider. General instructions Take zkwd-yec-bygfnxm and prescription medicines only as told by [...] 09/27/2006 Document Revised: 02/09/2020 Document Reviewed: 02/09/2020 [employer]uing Education Records & Resources Patient Education 2019 [employer]. Follow Up Care 05/11/2022 08:45:22 With:Marquise Mesa Address: [address] [place] [address]- Business (1) When:05/14/2022 10:10:58 With:JAVIER MARY Address: [facility] [address] [address] Business (1) When:Within 3 Day(s) [facility]06-06-2022 Evaluation note* Encounter Date Diagnosis Assessment Notes [...] if they are going to have the business development professional back shortly or if we should send her to the business development professional in [place]. We will contact patient/son-in-law with results. Collaaj Other 04-28-2022 Evaluation note* Encounter Date Diagnosis Assessment Notes Treatment Notes Treatment Clinical Notes Jan, Laceration of right lower leg, initial encounter (ICD-10 - S81.811A) Pt to keep clean and dry - no bathing - shower only. Collaaj Other 04-24-2022 Hospital Discharge instructions Patient Education [...] and water are not available, use hand educational technology specialist. ?Change your dressing as told by your [...] antibiotic even if your condition improves. Take vebc-oai-dwrfarz and prescription medicines only as told by [...] 07/06/2009 Document Revised: 01/15/2020 Document Reviewed: 04/13/2017 [employer] Patient Education 2020 [employer]. 01/31/2022 22:44:56 Nonsutured Laceration Care Nonsutured Laceration [...] Infection. Slow healing. Supplies needed: Soap. Hand educational technology specialist. Sterile water or irrigation solution. Bandages (dressings). [...] and water are not available, use hand educational technology specialist. 2.Remove any dressing as told by your [...] these instructions at home: Take or apply zcxr-znz-qgbjizy and prescription medicines only as told by [...] 08/25/2007 Document Revised: 01/19/2020 Document Reviewed: 10/17/2018 [employer] Patient Education 2020 [employer]. Follow Up Care 01/31/2022 19:55:48 With:JAVIER MARY Address: [facility] [address] [phone]- Business (1) When:02/03/2022 [facility]03-24-2022 Evaluation note* Encounter Date Diagnosis Assessment Notes Treatment Notes Treatment Clinical Notes Dec, Essential (primary) hypertension (ICD-10 - I10) Colla[facility] Other 12-06-2021 Evaluation note* Encounter Date Diagnosis [...] Ortho if she would like definitive review/removal? Collaaj Other 11-15-2021 Evaluation note* Encounter Date Diagnosis [...] discuss treatment of her varicose veins with Everardo. All of her questions were addressed. Patient [...] or call when she decides on treatment. Collaaj Other Evaluation + Plan note No data available for this section [facility] Future Appointments Appointment Date:01/08/2023 09:15:00 AM Scheduled Provider: Location:.[facility] Appointment Type:MA Diagnostic (FT) Appointment Date:01/11/2023 01:40:00 PM Scheduled Provider:Paul Gomez MD Location:[facility] Appointment Type: Established 15 Future Scheduled Tests Radiology* MA Mamm Diag w/CAD if perf and 3D Robby 01/08/23 [facility] Evaluation + Plan note Future Appointments Appointment Date:01/08/2023 09:15:00 AM Scheduled Provider: Location:.[facility] Appointment Type:MA Diagnostic (FT) Appointment Date:01/11/2023 01:40:00 PM Scheduled Provider:Paul Gomez MD Location:[facility] Appointment Type: Established 15 Diagnostic Tests Pending * Wound Culture 01/04/23 Future Scheduled Tests Radiology* MA Mamm Diag w/CAD if perf and 3D Robby 01/08/23 [facility] Future Appointments Appointment Date:01/11/2023 01:40:00 PM Scheduled Provider:Paul Gomez MD Location:[facility] Appointment Type: Established 15 [facility] Future Appointments Appointment Date:06/17/2023 09:00:00 AM Scheduled Provider: Location:.[facility] Appointment Type:CV Echo (FT) Future Scheduled Tests Radiology* Echo Transthoracic Complete 06/17/23 [facility] noteNo InformationNopemiscot memorial health systems [employer] Other Evaluation noteNoWGT Media Other History general Narrative - Reported* Type [...] above Hospitalization History left hip surgery 06/2019 [facility] [employer] Other Hisgyxt general Narrative - ReportedCollaaj Other Hisigqz general Narrative - Reported* Type Description Date Medical History HyperChol Medical History Aortic aneurysm, intrathoracic Medical History Anxiety Medical History Iron defiency anemia Medical History Impaired fasting blood sugar Medical History HTN Medical History Dependent edema Medical History OA - Left Knee - see Ortho (Dr. Graff) Surgical History Left Foot - Tendon 2008 Surgical History Carpal Tunnel - Right 2013 [...] 06/2019 Hospitalization History Fracture of Pelvis 03/22 Collaaj Other History of Present illness Narrative* Patient [...] replacement last echo was done back in 2018 * 4. Status post resection of large [...] and EKG with her and her son ErnestineSwift County [facility] Health Servicesrobert Ramsey DO Work Phone: History of Present illness [...] and EKG with her and her son BAKARISwift County Benson Health Servicesrobert Ramsey DO Work Phone: History of Present illness [...] to repeat her lab work as ordered [facility] 600 DO Work Phone: History of [...] Eliquis reviewed with patient and her son theyjaquan understood and agreed. Recommended to reduce the [...] her we will consider repeating her echocardiogram [facility] 600 DO Work Phone: Hospital Discharge instructions No data available for this section [facility] No data available for this section [facility] Summary Purpose Family History Mother Name Dates [...] content) DATE CREATED AUTHOR 12/29/2018 [facility] DATE CREATED AUTHOR AUTHOR'S ORGANIZ ATION 12/05/2020 [facility] DATE CREATED AUTHOR AUTHOR'S ORGANIZ ATION 11/14/2022 [facility] DATE CREATED AUTHOR AUTHOR'S ORGANIZ ATION 06/03/2023 [employer] DATE CREATED AUTHOR AUTHOR'S ORGANIZ ATION 06/18/2023 [facility] DATE CREATED AUTHOR AUTHOR'S ORGANIZ ATION 06/19/2023 [facility] REASON FOR VISIT (unrecogniz ed section and content) Vascular surgery consultVASC 1 WEEK FOLLOW UP; FF VENOUS DUPLEX BOTH LEGS 08/21/21EKG Result Req6 month Follow up, needs A1C, Pt. states she saw Dr. Norwood in August and he would like Dr. Mary to keep and eye on her left calf areaPatient Update/ EKGEKG Resultsrefill lisinopril, lasixClinical Acute Illnessrefill vit d, amlodipinemed/allergy list [facility] up6 month Follow up, Due for Medicare Wellness- BK (patient is ok with medicare wellness), patient did see ENT-- was told nothing is structurally wrong with her ears, still waiting on business development professional appt.. and was wondering if she could [...] and metamucil- and not working. hospital suggested lee and Doris wanted to see his thoughts [...] get this and she wants Dr Usman henleySkin tear on top of right hand from dog nail- wednesdayrefill vitamin dbumped leg and now its bruised/ blistered on wednesday-refill norvascrefill amitryptilineletter requestClinical Acute Illness6 month Follow uprefill vitamin d Care Team (unrecognized sect ion and content) Personnel Name: JAVIER MARY DO Address: [address] [place] [address]- [place] Name: Ivory Villanueva Personnel Name: USMAN DO, JAVIER M Address: Address: [address] [place] [address] [place] [address]- [place] Name: Ivory Villanueva Personnel Name: USMAN DO, JAVIER M Address: Address: [address] [place] [address] [place] [address]- [place] Name: Ivory Villanueva Personnel Name: USMAN DO, JAVIER M Address: Address: [address] [place] [address] [place] [address]- [place] Name: Ivory Villanueva Personnel Name: USMAN DO, JAVIER M Address: Address: [address] [place] [id number] [place] [address]- [place] Name: Ivory Villanueva Personnel Name: USMAN DO, JAVIER M Address: Address: [address] [place] [id number] [place] [address]- [place] Name: Ivory Villanueva Personnel Name: USMAN DO, JAVIER M Address: Address: [address] [place] [address], [place] [address]- [place] Name: Iovry Villanueva Personnel Name: USAMN DO, JAVIER M Address: Address: [address] [place] [id number] [place] [address]- [place] Name: Ivory Villanueva Personnel Name: USMAN DO, JAVIER M Address: Address: [address] [place] [address], [place] [address]- [place] Name: Ivory Villanueva Personnel Name: USMAN DO, JAVIER M Address: Address: [address] [place] [address] [place] [address]- [place] Name: Ivory Villanueva Personnel Name: USMAN DO, JAVIER M Address: Address: [address] [place] [id number] [place] [address]- [place] Name: Ivory Villanueva Personnel Name: USMAN DO, JAVIER M Address: Address: [address] [place] [address], [place] [address]- [place] Name: Ivory Villanueva Personnel Name: USMAN DO, JAVIER M Address: Address: [address] [place] [address], [place] [address]- [place] Name: Ivory Villanueva Personnel Name: USMAN DO, JAVIER M Address: Address: [address] [place] [address], [place] [address]- [place] Name: Ivory Villanueva FOR RECORDS PERTAINING [...] BE BASED ON THE PRIMARY CLINICAL RECORDS. [facility] [employer] [facility]. provides no warranty or guarantee of the accuracy or completeness of information in this document.
== END 2023-11-05 12:56 | disposition home or self-care (01) ==
LOC: VC 12:56
PROVIDERS: PCP Radiology Diagnostic Radiology; Visit Provider Radiology Diagnostic Radiology
DX: I80.01 Phlebitis and thrombophlebitis of superficial vessels of right lower extremity (principal)
CPT/HCPCS: 93971; G0463